=== PATIENT | male | born 1975 | race Caucasian/White ===

== ENCOUNTER 2016-02-19 18:00 | Inpatient (IN) | payer MEDICARE, OTHER ==
[2016-02-19] MEDS ORDERED: SODIUM CHLORIDE 0.9% 1,000 ML IV STA (18:22)
[2016-02-19 19:37] LABS: Anisocytosis Slight; Basophils # (A) 0.1 k/uL (0-0.2); Basophils % (A) 1 %; CH 32.8; CHCM 32.8; Eosinophils # (A) 0.3 k/uL (0-0.7); Eosinophils % (A) 4 %; HCT 25.4 % (39.0-53.0); HDW 2.55; Luc # (Auto) 0.13; Luc % (Auto) 2; Lymphocytes % (A) 12 %; MCH 31.5 pg (25.0-35.0); MCHC 31.4 g/dL (31.0-37.0); Macrocytosis Moderate; Mean Platelet Volume 8.9; Monocytes # (A) 0.4 k/uL (0-1.0); Monocytes % (A) 5 %; Neutrophils # (A) 6.4 k/uL (1.3-7.7); Neutrophils % (A) 77 %; RBC 2.53 m/uL (4.30-5.90); RDW 17.9 % (11.5-15.5); WBC 8.3 k/uL (3.8-10.6); WBC (Perox) 8.58
[2016-02-19 19:49] LABS: MCV 100.5 fL (80.0-100.0)
[2016-02-19 19:50] VITALS: RESP 18
--- NOTE | 2016-02-19 19:50 | XR ---
EXAMINATION TYPE: XR chest 2V DATE OF EXAM: 02/19/2016 7:36 PM COMPARISON: 01/12/2016 HISTORY: Difficulty breathing TECHNIQUE: Frontal and lateral views of the chest are obtained. FINDINGS: Heart is enlarged. There is pulmonary interstitial edema. There are no hilar masses. There is a small left pleural effusion. IMPRESSION: Pulmonary edema consistent with congestive heart failure that is worse than last exam. C ardiomegaly.
[2016-02-19 20:05] LABS: Calcium 8.2 mg/dL (8.4-10.2); Magnesium 2.3 mg/dL (1.6-2.3); Potassium 4.5 mmol/L (3.5-5.1)
--- NOTE | 2016-02-19 20:48 | ED ---
General Adult HPI - General Chief complaint: Shortness of Breath Stated complaint: mony, fluid overload, jaundice Time Seen by Provider: 02/19/16 18:13 Source: patient, RN notes reviewed, old records reviewed Mode of arrival: ambulatory - History of Present Illness Initial comments: Chief complaint history of present illness this is a 32-year-old male who has end-stage renal disease and on hemodialysis. Patient reports he thinks he may have overloaded on fluid this past weekend his next dialysis is tomorrow. Presents short of breath. - Related Data Home Medications Medication Instructions Recorded Confirmed LORazepam [Ativan] 1 mg PO DAILY PRN 06/06/14 01/25/16 Carvedilol [Coreg] 25 mg PO BID 07/10/14 01/25/16 amLODIPine BESYLATE [Amlodipine 10 mg PO DAILY 06/24/15 01/25/16 Besylate] HYDROmorphone [Dilaudid] 2 mg PO DAILY PRN 07/25/15 01/25/16 Cinacalcet HCl [Sensipar] 60 mg PO DAILY 10/31/15 01/25/16 hydrALAZINE HCL [Apresoline] 100 mg PO TID-W/MEALS 11/10/15 01/25/16 Calcium Acetate [Phoslo] 2,001 mg PO TID-W/MEALS 12/11/15 01/25/16 Hydrocodone/Acetaminophen 0.5 tab PO DAILY PRN 12/11/15 01/25/16 [Hydrocodon-Acetaminophn 10-325] Ondansetron Odt [Zofran ODT] 4 mg PO DAILY PRN 12/11/15 01/25/16 cloNIDine HCL [Catapres] 0.2 mg PO TID 12/11/15 01/25/16 Doxycycline Hyclate 100 mg PO DAILY 01/12/16 01/25/16 Famotidine 20 mg PO DAILY 01/12/16 01/25/16 Insulin Glargine [Lantus] 12 unit SQ HS 01/12/16 01/25/16 Folic Acid-Vit B Complex-Vit C 1 cap PO DAILY 01/25/16 01/25/16 [Nephrocaps] Previous Rx's Medication Instructions Recorded Omeprazole [PriLOSEC] 20 mg PO BID #60 01/12/16 Allergies Allergy/AdvReac Type Severity Reaction Status Date / Time codeine Allergy Itching Verified 02/19/16 18:09 metoclopramide HCl AdvReac MUSCLE Verified 02/19/16 18:09 [From Reglan] SPASMS morphine AdvReac INCREASES Verified 02/19/16 18:09 PAIN Review of Systems ROS Statement: Those systems with pertinent positive or pertinent negative responses have been documented in the HPI. Review of systems patient reports he feel short of breath and overloaded. Some difficulty breathing when he tries to breathe. He is on hemodialysis and puts out no urine at all. Denying headache or neurological deficits. No weakness. All systems are reviewed. Past medical problems angina, CHF, CVA, diabetes mellitus, hemodialysis, I disorder, GERD, hypertension, seizure disorder, hypothyroidism, patient's surgeries cholecystectomy, heart catheterization hernia repair bilateral retinal repair. Family history Dr. Stack. ALLERGIES to codeine, metoclopramide and morphine. ROS Other: All systems not noted in ROS Statement are negative. Past Medical History Past Medical History: Chest Pain / Angina, Heart Failure, CVA/TIA, Diabetes Mellitus, Dialysis, Eye Disorder, GERD/Reflux, Hypertension, Renal Disease, Seizure Disorder, Thyroid Disorder Additional Past Medical History / Comment(s): Chronic renal failure stage IV, hemodialysis, past peritoneal dialysis with peritonitis, gastroparesis, cyclic vomiting, chronic abdominal pain, pancreatitis, IDDM type II brittle, heart murmur, heat stroke-no residual, diabetic retinopathy bilaterally, retinal detachment with surgery stated "rt eye vision since is blurry, lt eye better", hypothyroid, hiatal hernia, sinusitis, bronchitis, chronic back pain, anemia, seizure in the past. History of Any Multi-Drug Resistant Organisms: None Reported Past Surgical History: Cholecystectomy, Heart Catheterization, Hernia Repair Additional Past Surgical History / Comment(s): bilateral retinal reattachment sx , hemodialysis catheter in Feb 2013, lt arm fistual, L inguinal hernia, 2009 cardiac cath. Past Anesthesia/Blood Transfusion Reactions: No Reported Reaction Past Psychological History: Anxiety, Depression Additional Psychological History / Comment(s): Pt has his mother living with him. He uses no assistive device. He drives. Smoking Status: Former smoker Past Alcohol Use History: None Reported Additional Past Alcohol Use History / Comment(s): STARTED SMOKING AT AGE 18 SMOKED SOCIALLY AND QUIT 1998 Past Drug Use History: None Reported Additional Drug Use History / Comment(s): PAST medical Marijuana use in high school. - Past Family History Father History Unknown: Yes Mother History Unknown: Yes Family Medical History: COPD Additional Family Medical History / Comment(s): Mother has never smoked. Mother' s brother had diabetes and multiple sclerosis. Brother(s) Family Medical History: Diabetes Mellitus Additional Family Medical History / Comment(s): multiple sclerosis Course Vital Signs 02/19/16 02/19/16 02/19/16 18:05 18:57 19:48 Temperature 98.7 F 98.5 F Pulse Rate 89 80 Respiratory 28 H 22 18 Rate Blood Pressure 205/96 208/100 O2 Sat by Pulse 100 97 Oximetry 02/19/16 20:52 Temperature Pulse Rate 83 Respiratory 18 Rate Blood Pressure 208/101 O2 Sat by Pulse 99 Oximetry Medical Decision Making - Medical Decision Making Medical decision making patient's white count 8.3 hemoglobin 8 hematocrit of 25. Potassium is 4.5 with BUN is 67 creatinine 9.9 with a GFR 6. His BNP is 74 ,500 His chest x-ray was done and reviewed by radiologist his findings are heart is enlarged. There is pulmonary interstitial edema. There are no hilar masses. There is a small left pleural effusion. Impression; pulmonary edema consistent with congestive heart failure that is worse than last exam. Cardiomegaly. As read by Dr. Miles The patient be admitted to the hospitalist. With consultation from professor of early childhood education. The professor of early childhood education will order the dialysis. Admission diagnosis is fluid overload pulmonary congestion - Lab Data Result diagrams: 02/19/16 19:15 02/19/16 19:15 Lab Results 02/19/16 02/19/16 02/19/16 Range/Units 19:15 19:15 19:15 WBC 8.3 (3.8-10.6) k/uL RBC 2.53 L (4.30-5.90) m/uL Hgb 8.0 L (13.0-17.5) gm/dL Hct 25.4 L (39.0-53.0) % MCV 100.5 H D (80.0-100.0) fL MCH 31.5 (25.0-35.0) pg MCHC 31.4 (31.0-37.0) g/dL RDW 17.9 H (11.5-15.5) % Plt Count 145 L (150-450) k/uL Neutrophils % 77 % Lymphocytes % 12 % Monocytes % 5 % Eosinophils % 4 % Basophils % 1 % Neutrophils # 6.4 (1.3-7.7) k/uL Lymphocytes # 1.0 (1.0-4.8) k/uL Monocytes # 0.4 (0-1.0) k/uL Eosinophils # 0.3 (0-0.7) k/uL Basophils # 0.1 (0-0.2) k/uL Anisocytosis Slight Macrocytosis Moderate PT (9.0-12.0) sec INR (<1.1) APTT (22.0-30.0) sec Sodium 143 (137-145) mmol/L Potassium 4.5 (3.5-5.1) mmol/L Chloride 97 L (98-107) mmol/L Carbon Dioxide 26 (22-30) mmol/L Anion Gap 20 mmol/L BUN 67 H (9-20) mg/dL Creatinine 9.90 H* (0.66-1.25) mg/dL Est GFR (MDRD) Af Amer 7 (>60 ml/min/1.73 sqM) Est GFR (MDRD) Non-Af 6 (>60 ml/min/1.73 sqM) Glucose 186 H (74-99) mg/dL Calcium 8.2 L (8.4-10.2) mg/dL Magnesium 2.3 (1.6-2.3) mg/dL Total Bilirubin 1.0 (0.2-1.3) mg/dL AST 53 (17-59) U/L ALT 62 (21-72) U/L Alkaline Phosphatase 247 H (38-126) U/L NT-Pro-B Natriuret Pep 08577 pg/mL Total Protein 7.0 (6.3-8.2) g/dL Albumin 4.1 (3.5-5.0) g/dL 02/19/16 Range/Units 19:15 WBC (3.8-10.6) k/uL RBC (4.30-5.90) m/uL Hgb (13.0-17.5) gm/dL Hct (39.0-53.0) % MCV (80.0-100.0) fL MCH (25.0-35.0) pg MCHC (31.0-37.0) g/dL RDW (11.5-15.5) % Plt Count (150-450) k/uL Neutrophils % % Lymphocytes % % Monocytes % % Eosinophils % % Basophils % % Neutrophils # (1.3-7.7) k/uL Lymphocytes # (1.0-4.8) k/uL Monocytes # (0-1.0) k/uL Eosinophils # (0-0.7) k/uL Basophils # (0-0.2) k/uL Anisocytosis Macrocytosis PT 10.9 (9.0-12.0) sec INR 1.1 (<1.1) APTT 26.0 (22.0-30.0) sec Sodium (137-145) mmol/L Potassium (3.5-5.1) mmol/L Chloride (98-107) mmol/L Carbon Dioxide (22-30) mmol/L Anion Gap mmol/L BUN (9-20) mg/dL Creatinine (0.66-1.25) mg/dL Est GFR (MDRD) Af Amer (>60 ml/min/1.73 sqM) Est GFR (MDRD) Non-Af (>60 ml/min/1.73 sqM) Glucose (74-99) mg/dL Calcium (8.4-10.2) mg/dL Magnesium (1.6-2.3) mg/dL Total Bilirubin (0.2-1.3) mg/dL AST (17-59) U/L ALT (21-72) U/L Alkaline Phosphatase (38-126) U/L NT-Pro-B Natriuret Pep pg/mL Total Protein (6.3-8.2) g/dL Albumin (3.5-5.0) g/dL Disposition Clinical Impression: Fluid overload, Chronic renal failure, stage 5 Disposition: ADMITTED IP TO THIS HOSP Condition: Serious
[2016-02-19 20:51] LABS: INR 1.1 (<1.1); Prothrombin Time 10.9 sec (9.0-12.0)
[2016-02-19] MEDS ORDERED: ONDANSETRON 4 MG/2 ML VIAL IVP STA (21:08)
[2016-02-19] MEDS ORDERED: SODIUM CHLORIDE 0.9% 1,000 ML IV SCH (21:15)
[2016-02-19] MEDS ORDERED: ONDANSETRON 4 MG/2 ML VIAL IVP PRN (21:15)
[2016-02-19] MEDS ORDERED: NALOXONE 0.4 MG/ML 1 ML VIAL IV PRN (21:15)
[2016-02-19] MEDS ORDERED: HYDROmorphone 2 MG TAB PO PRN (22:36)
[2016-02-19] MEDS ORDERED: HYDROcodone/APAP 5-325MG 1 EACH TAB PO PRN (22:36)
[2016-02-19] MEDS ORDERED: INSULIN GLARGINE 100 UNIT/ML 10 ML VIAL SQ SCH (22:45)
[2016-02-19] MEDS ORDERED: GELATIN SPONGE,ABSORB (SMALL) 1 EACH SPONGE ONE (23:00)
[2016-02-19 23:05] VITALS: BMI 22.2
[2016-02-19] MEDS ORDERED: LORazepam 0.5 MG TAB PO PRN (23:12)
[2016-02-19] MEDS: HYDROmorphone 1 MG/ML 1 ML SYRINGE IVP PRN (23:32)
[2016-02-19 23:33] LABS: Glucose,Whole Blood 119 mg/dL (75-99)
[2016-02-20] MEDS ORDERED: LORazepam 1 MG TAB PO PRN (01:15)
[2016-02-20] MEDS: cloNIDine HCL 0.2 MG TAB PO SCH ×3 (01:36→08:00)
[2016-02-20] MEDS: CARVEDILOL 12.5 MG TAB PO SCH ×3 (01:36→08:00)
[2016-02-20] MEDS: hydrALAZINE HCL 50 MG TAB PO SCH ×3 (02:10→12:37)
[2016-02-20 06:08] LABS: Glucose,Whole Blood 77 mg/dL (75-99)
[2016-02-20] MEDS: INSULIN LISPRO (humaLOG) 300 UNIT/3 ML VIAL SQ SCH ×2 (06:30→12:36)
[2016-02-20] MEDS: CALCIUM ACETATE 667 MG CAP PO SCH ×2 (06:36→12:38)
[2016-02-20 06:45] LABS: Anisocytosis Slight; Basophils # (A) 0.1 k/uL (0-0.2); Basophils % (A) 1 %; CH 32.4; CHCM 31.9; Eosinophils # (A) 0.4 k/uL (0-0.7); Eosinophils % (A) 6 %; HCT 25.8 % (39.0-53.0); HDW 2.55; HGB 8.1 gm/dL (13.0-17.5); Hypochromasia Slight; Luc # (Auto) 0.12; Luc % (Auto) 2; Lymphocytes # (A) 1.2 k/uL (1.0-4.8); Lymphocytes % (A) 18 %; MCH 31.9 pg (25.0-35.0); MCHC 31.2 g/dL (31.0-37.0); MCV 102.2 fL (80.0-100.0); Macrocytosis Moderate; Mean Platelet Volume 8.6; Monocytes # (A) 0.4 k/uL (0-1.0); Monocytes % (A) 6 %; Neutrophils # (A) 4.6 k/uL (1.3-7.7); Neutrophils % (A) 68 %; RBC 2.53 m/uL (4.30-5.90); RDW 18.1 % (11.5-15.5); WBC 6.8 k/uL (3.8-10.6); WBC (Perox) 7.59
[2016-02-20 07:38] LABS: Calcium 8.1 mg/dL (8.4-10.2); Potassium 3.7 mmol/L (3.5-5.1)
[2016-02-20] MEDS ORDERED: FOLIC ACID-VIT B COMPLEX-VIT C 1 CAP PO SCH (09:00)
[2016-02-20] MEDS ORDERED: DOXYCYCLINE 50 MG CAP PO SCH (09:00)
[2016-02-20] MEDS ORDERED: amLODIPine 10 MG TAB PO SCH (09:00)
[2016-02-20] MEDS ORDERED: FAMOTIDINE 20 MG TAB PO SCH ×2 (09:00)
[2016-02-20] MEDS ORDERED: CINACALCET 30 MG TAB PO SCH (09:00)
[2016-02-20] MEDS: HYDROmorphone 1 MG/ML 1 ML SYRINGE IVP PRN (09:29)
[2016-02-20] MEDS ORDERED: LORazepam 0.5 MG TAB PO PRN (11:29)
[2016-02-20 11:47] LABS: Glucose,Whole Blood 152 mg/dL (75-99)
[2016-02-20 12:37] LABS: Hemoglobin A1C 7.5 % (4.2-6.1)
[2016-02-20 15:09] VITALS: BP 125/60; PULSE 73; TEMP 97.4
--- NOTE | 2016-02-20 18:37 | HP ---
DATE OF ADMISSION: DATE OF SERVICE: 02/19/2016 CHIEF COMPLAINT: Shortness of breath and abdominal pain, abdominal distention. HISTORY OF PRESENT ILLNESS: This 40-year-old gentleman with a past medical history of multiple medical problems including hypertension, history of CHF, history of chronic hemodialysis, history of chronic pain syndrome, history of noncompliance, history of hypothyroidism, diabetes mellitus, gastroparesis, followed by Dr. Onofre in the outpatient setting, was noted to have shortness of breath and abdominal distention and pain today. The patient apparently was supposed to be hemodialysis tomorrow but the patient apparently was noncompliant with diet or food per staff. There is no history of fever. No history of headache or loss of consciousness. PAST MEDICAL HISTORY: CHF, history of diabetes mellitus type 1, hemodialysis, seizure disorder, hypothyroidism, history of anxiety and depression. The patient had cardiac catheterization. Medications prior to admission include: 1. Hydralazine 100 mg p.o. t.i.d. with meals. 2. Clonidine 0.2 t.i.d. 3. Amlodipine 10 mg daily. 4. Zofran 4 mg daily p.r.n. 5. Prilosec 20 mg a day. 6. Ativan 1 mg daily. 7. Lantus 12 units subcu q.h.s. 8. Hydrocodone daily p.r.n. 9. Dilaudid 2 mg daily p.r.n. 10. Nephrocaps 1 capsule daily. 11. Famotidine 20 mg a day. 12. Doxycycline 100 mg p.o. daily. 13. Sensipar 60 mg p.o. daily. 14. Coreg 25 mg p.o. b.i.d. 15. Phosphorus 2000, 1 mg p.o. t.i.d. with meals. ALLERGIES: CODEINE, REGLAN, MORPHINE. FAMILY HISTORY: History of COPD. SOCIAL HISTORY: Previous history of smoking. REVIEW OF SYSTEMS: ENT: No history of diminished hearing or vision. CARDIOVASCULAR: As mentioned earlier. RESPIRATORY: As mentioned earlier. GASTROINTESTINAL: No nausea, vomiting, or diarrhea. GENITOURINARY: As mentioned earlier. NERVOUS: No numbness or weakness. ALLERGY/IMMUNOLOGY: No asthma or hayfever. HEMATOLOGY/ONCOLOGY: Negative. ENDOCRINE: Negative. SKIN: Negative. CONSTITUTIONAL: No history of fever or weight loss. PHYSICAL EXAMINATION: GENERAL: The patient is alert and oriented times three. VITAL SIGNS: Pulse is 87, blood pressure 213/100, respirations 18, temperature 98.0, pulse ox is 94% on room air. HEENT: Conjunctivae normal. NECK: No jugular venous distention. HEART: S1 and S2, muffled. RESPIRATORY: Breath sounds diminished at the bases. A few scattered rhonchi. No crackles. ABDOMEN: Soft, obese. Mild diffuse tenderness present. Abdominal wall edema is present. EXTREMITIES: Bilateral leg edema. NERVOUS: Diffusely weak. Moves all four extremities. No focal motor deficits.. SKIN: No rash. LABS: WBC 8. Otherwise, sodium 142, potassium 4.4, creatinine is 9.90, alk phos 247. ASSESSMENT: 1. Shortness of breath, CHF acute exacerbation, with acute on chronic diastolic dysfunction, ejection fraction 60 to 65% with a fluid overload. 2. Chronic kidney disease, stage V on hemodialysis. 3. Possible noncompliance. 4. Abdominal pain, possibly acute gastroparesis, acute exacerbation. 5. Accelerated hypertension. 6. History of brittle diabetes mellitus type 1. 7. Chronic pain syndrome. 8. History of noncompliance. 9. Anemia of chronic disease. 10. Cerebrovascular accident, transient ischemic attack. 11. History of gastroesophageal reflux disease. 12. Hypertension. 13. Hypothyroidism. 14. History of gastroparesis. 15. History of cardiac catheterization. 16. History of as mentioned. 17. History of diabetic retinopathy. 18. History of pancreatitis. 19. History of anxiety and depression, not otherwise specified. 20. History of nicotine dependence. 21. History of THC. 22. History of hypothyroidism. 23. FULL CODE. RECOMMENDATIONS AND DISC USSION: In this 40-year-old gentleman with multiple complex medical issues, we will monitor the patient closely, continue the current medications, continue symptomatic treatment. I would also recommend nephrology consultation and urgent hemodialysis in view of the features of CHF, which chest x-ray which was reviewed personally by me. The patient also has accelerated hypertension and dialysis will be an excellent way to control the blood pressure. Otherwise, I would recommend resuming the home medications, p.r.n. medications. See orders for details. Prognosis extremely guarded because of multiple complex medical issues,. Further recommendation to follow. Discussed with the staff. VANDANA
[2016-02-20] MEDS ORDERED: NON-FORMULARY DRUG (Hydralazine Hcl [Apresoline] 100 MG) PO SCH (22:47)
--- NOTE | 2016-02-21 09:53 | CONS ---
DATE OF CONSULTATION: REASON FOR CONSULTATION: End-stage renal disease. HISTORY OF PRESENT ILLNESS: Patient is a 40-year-old white male who came in again with significant shortness of breath and fluid overload. He came in last night complaining of severe difficulty in breathing. He also stated that he had been drinking a lot of fluids. Patient was dialyzed last night and was dialyzed again today. He had about 7 liters of fluid removed between last night and this morning. No fever, chills, no significant nausea and vomiting. PAST MEDICAL HISTORY: Rest of the history as per recent consultation on 01/12/[address] Allred. On examination, the patient is comfortable. Blood pressure is 120/60, heart rate 71 per minute. He is afebrile. Examination of the heart S1 and S2. Examination of the lungs: Bilateral breath sounds are heard. ABDOMEN: Soft, nontender. Examination of lower extremities shows no edema. NEEDLE LEADER exam is grossly intact. Potassium is 3.7. Hemoglobin at 8.1 g/dL. ASSESSMENT: 1. End-stage renal disease on hemodialysis on a Saturday, Saturday, Saturday schedule. 2. Fluid overload with history of fluid abuse, currently improved, status post 7 liters ultrafiltration on hemodialysis last night and this morning. 3. History of diabetic gastroparesis with a prior history of significant nausea and vomiting which was fortunately not present on this admission. 4. Anemia of chronic disease. Will continue with ( ) as outpatient. PLAN: The patient is stable for discharge from nephrology standpoint and follow up as outpatient on dialysis. Will continue with fluid restrictions.
--- NOTE | 2016-02-21 20:13 | DS ---
DATE OF ADMISSION: 02/19/2016 DATE OF DISCHARGE: 02/20/2016 FINAL DIAGNOSES: 1. Shortness of breath; congestive heart failure, acute exacerbation; acute on chronic diastolic dysfunction; ejection fraction 60% to 65%, with fluid overload, status post hemodialysis x2; improved. 2. Chronic kidney disease, stage V, on hemodialysis. 3. Possible noncompliance. 4. Abdominal pain with possible acute gastroparesis, acute exacerbation. 5. Accelerated hypertension. 6. History of brittle diabetes mellitus, type 1. 7. Chronic pain syndrome. 8. History of noncompliance. 9. Anemia of chronic disease. 10. Cerebrovascular accident, transient ischemic attack. 11. History of gastroesophageal reflux disease. 12. Hypertension. 13. Hypothyroidism. 14. History of gastroparesis. 15. History of cardiac catheterization. 16. History of diabetic retinopathy. 17. History of pancreatitis. 18. History of anxiety, depression not otherwise specified. 19. History of nicotine dependence. 20. History of tetrahydrocannabinol. 21. History of hypothyroidism. 22. FULL CODE. DISCHARGE DISPOSITION: The patient will be discharged in stable condition with guarded prognosis. HISTORY OF PRESENT ILLNESS: This 40-year-old gentleman with a past medical history of multiple medical problems, being followed by Dr. Onofre in the outpatient setting, was admitted with shortness of breath and CHF, acute exacerbation. Hemodialysis twice within a span of 24 hours. Patient improved significantly. Noncompliance was suspected. Patient improved significantly. On exam, vitals are stable. CARDIOVASCULAR SYSTEM: S1, S2 muffled. RESPIRATORY SYSTEM: Breath sounds diminished at the bases. A few scattered rhonchi. ABDOMEN: Soft. NERVOUS SYSTEM: No focal deficit. DISCHARGE ADVICE AND MEDICATIONS: 1. Diet is cardiac. Fluid restriction. No added salt. 2. Follow up with Dr. Onofre in 2 to 3 days for CBC, BMP. 3. Follow up with Dr. Rush as advised. 4. Continue the hemodialysis. 5. Vitamin B complex one p.o. daily. 6. Coreg 25 mg b.i.d. 7. Sensipar 60 mg daily. 8. Flexeril 10 mg t.i.d. p.r.n. 9. Folbic 1 p.o. daily. 10. Hydrocodone 0.5 mg daily. 11. Humalog scale as before. 12. Lantus 12 units subcutaneously at bedtime. 13. Ativan 1 mg daily. 14. Prilosec 20 mg daily. 15. Zofran 4 mg p.o. daily. 16. Amlodipine 10 mg p.o. daily. 17. Catapres 0.2 t.i.d. 18. Apresoline 100 mg p.o. t.i.d. Once again, the patient will be discharged in stable condition with guarded prognosis.
== END 2016-02-20 16:26 | disposition home or self-care (01) | DRG 291 ==
LOC: EC 18:00 → 6SEL 21:15
PROVIDERS: ADMIT Internal Medicine; ATTEND Internal Medicine
PROC: 5A1D60Z (ICD-10-PCS; principal; 2016-02-20)
DX: I13.2 Hypertensive heart and chronic kidney disease with heart failure and with stage 5 chronic kidney disease, or end stage renal disease (principal); N18.6 End stage renal disease; I50.33 Acute on chronic diastolic (congestive) heart failure; E10.22 Type 1 diabetes mellitus with diabetic chronic kidney disease; D63.8 Anemia in other chronic diseases classified elsewhere; E03.9 Hypothyroidism, unspecified; E10.319 Type 1 diabetes mellitus with unspecified diabetic retinopathy without macular edema; E10.43 Type 1 diabetes mellitus with diabetic autonomic (poly)neuropathy; G40.909 Epilepsy, unspecified, not intractable, without status epilepticus; G89.4 Chronic pain syndrome; K21.9 Gastro-esophageal reflux disease without esophagitis; K31.84 Gastroparesis; F32.9 Major depressive disorder, single episode, unspecified; F41.9 Anxiety disorder, unspecified; R01.1 Cardiac murmur, unspecified; K44.9 Diaphragmatic hernia without obstruction or gangrene; H53.8 Other visual disturbances; M54.9 Dorsalgia, unspecified; Z99.2 Dependence on renal dialysis; Z91.19 Patient's noncompliance with other medical treatment and regimen; Z91.11 Patient's noncompliance with dietary regimen; Z87.891 Personal history of nicotine dependence; Z79.4 Long term (current) use of insulin; Z79.899 Other long term (current) drug therapy; Z88.5 Allergy status to narcotic agent; Z88.8 Allergy status to other drugs, medicaments and biological substances
CPT/HCPCS: 36415; 71020; 80048; 80053; 83036; 83735; 83880; 85025; 85610; 85730; 90935; 94760; 96374; 99285

== ENCOUNTER 2016-03-28 19:43 | Emergency (ER) | payer MEDICARE, OTHER ==
[2016-03-28 19:50] VITALS: TEMP 97.8
[2016-03-28] MEDS ORDERED: SODIUM CHLORIDE 0.9% 500 ML IV ONE (19:56)
[2016-03-28] MEDS ORDERED: HYDROmorphone 1 MG/ML 1 ML SYRINGE IVP STA (19:56)
[2016-03-28] MEDS ORDERED: ONDANSETRON 4 MG/2 ML VIAL IVP STA (19:56)
[2016-03-28 20:42] LABS: Anisocytosis Slight; Basophils # (A) 0.1 k/uL (0-0.2); Basophils % (A) 1 %; CH 31.2; CHCM 31.4; Eosinophils # (A) 0.1 k/uL (0-0.7); Eosinophils % (A) 1 %; HCT 45.5 % (39.0-53.0); Hypochromasia Slight; Luc # (Auto) 0.12; Luc % (Auto) 2; Lymphocytes # (A) 0.4 k/uL (1.0-4.8); Lymphocytes % (A) 5 %; MCH 31.2 pg (25.0-35.0); MCHC 31.2 g/dL (31.0-37.0); MCV 100.1 fL (80.0-100.0); Macrocytosis Moderate; Mean Platelet Volume 8.6; Monocytes # (A) 0.3 k/uL (0-1.0); Monocytes % (A) 4 %; Neutrophils # (A) 6.5 k/uL (1.3-7.7); Neutrophils % (A) 87 %; RBC 4.54 m/uL (4.30-5.90); RDW 18.3 % (11.5-15.5); WBC 7.6 k/uL (3.8-10.6); WBC (Perox) 7.53
[2016-03-28 20:45] LABS: HGB 14.2 gm/dL (13.0-17.5)
[2016-03-28 20:48] LABS: Total Bilirubin 1.5 mg/dL (0.2-1.3); Total Protein 9.4 g/dL (6.3-8.2)
--- NOTE | 2016-03-28 21:03 | ED ---
Abdominal Pain HPI - General Chief Complaint: Abdominal Pain Stated Complaint: Abdomnial Pain Time Seen by Provider: 03/28/16 19:47 Source: patient Mode of arrival: EMS Limitations: physical limitation - History of Present Illness Initial Comments: Is a 32-year-old male with a history of end-stage renal disease, diabetes, gastroparesis presents emergency room for epigastric abdominal pain, nausea, and vomiting. He states that it's severe and was sudden onset after getting dialysis today. He states that it's the same as his normal gastroparesis pain. He denies any blood in his vomit. No diarrhea or bloody stools. No fevers or chills. No cough or shortness of breath. Patient has had multiple ED visits for this and states that the only thing that works for him is Dilaudid and Zofran. - Related Data Home Medications Medication Instructions Recorded Confirmed LORazepam [Ativan] 1 mg PO DAILY PRN 06/06/14 03/28/16 Carvedilol [Coreg] 25 mg PO BID 07/10/14 03/28/16 amLODIPine BESYLATE [Amlodipine 10 mg PO DAILY 06/24/15 03/28/16 Besylate] Cinacalcet HCl [Sensipar] 60 mg PO DAILY 10/31/15 03/28/16 Hydrocodone/Acetaminophen 0.5 tab PO DAILY PRN 12/11/15 03/28/16 [Hydrocodon-Acetaminophn 10-325] Ondansetron Odt [Zofran ODT] 4 mg PO BID PRN 12/11/15 03/28/16 Insulin Glargine [Lantus] 12 unit SQ HS 01/12/16 03/28/16 Folic Acid-Vit B Complex-Vit C 1 cap PO DAILY 01/25/16 03/28/16 [Nephrocaps] B Complex & C No.20/Folic Acid 1 mg PO DAILY 02/20/16 03/28/16 [Triphrocaps Softgel] Cyclobenzaprine [Flexeril] 10 mg PO TID PRN 02/20/16 03/28/16 INSULIN LISPRO (humaLOG) [humaLOG See Protocol SQ AC-TID 02/20/16 03/28/16 (formulary)] Omeprazole [PriLOSEC] 20 mg PO DAILY 02/20/16 03/28/16 HYDROmorphone [Dilaudid] 2 mg PO DAILY PRN 03/28/16 03/28/16 hydrALAZINE HCL [Apresoline] 100 mg PO QID 03/28/16 03/28/16 Previous Rx's Medication Instructions Recorded cloNIDine HCL [Catapres] 0.2 mg PO TID tab 02/20/16 Allergies Allergy/AdvReac Type Severity Reaction Status Date / Time codeine Allergy Itching Verified 03/28/16 20:15 metoclopramide HCl AdvReac MUSCLE Verified 03/28/16 20:15 [From Reglan] SPASMS morphine AdvReac INCREASES Verified 03/28/16 20:15 PAIN Review of Systems ROS Statement: Those systems with pertinent positive or pertinent negative responses have been documented in the HPI. ROS Other: All systems not noted in ROS Statement are negative. Past Medical History Past Medical History: Chest Pain / Angina, Heart Failure, Diabetes Mellitus, Dialysis, Eye Disorder, GERD/Reflux, Hypertension, Renal Disease, Seizure Disorder, Thyroid Disorder Additional Past Medical History / Comment(s): Chronic renal failure stage IV, hemodialysis, past peritoneal dialysis with peritonitis, gastroparesis, cyclic vomiting, chronic abdominal pain, pancreatitis, IDDM type II brittle, heart murmur, heat stroke-no residual, diabetic retinopathy bilaterally, retinal detachment with surgery stated "rt eye vision since is blurry, lt eye better", hypothyroid, hiatal hernia, sinusitis, bronchitis, chronic back pain, anemia, seizure in the past. History of Any Multi-Drug Resistant Organisms: None Reported Past Surgical History: Cholecystectomy, Heart Catheterization, Hernia Repair Additional Past Surgical History / Comment(s): bilateral retinal reattachment sx , hemodialysis catheter in Feb 2013, lt arm fistual, L inguinal hernia, 2009 cardiac cath. Past Anesthesia/Blood Transfusion Reactions: No Reported Reaction Past Psychological History: Anxiety, Depression Additional Psychological History / Comment(s): Pt has his mother living with him. He uses no assistive device. He drives. Smoking Status: Former smoker Past Alcohol Use History: None Reported Additional Past Alcohol Use History / Comment(s): STARTED SMOKING AT AGE 18 SMOKED SOCIALLY AND QUIT 1998 Past Drug Use History: None Reported Additional Drug Use History / Comment(s): PAST medical Marijuana use in high school. - Past Family History Father History Unknown: Yes Mother History Unknown: Yes Family Medical History: COPD Additional Family Medical History / Comment(s): Mother has never smoked. Mother' s brother had diabetes and multiple sclerosis. Brother(s) Family Medical History: Diabetes Mellitus Additional Family Medical History / Comment(s): multiple sclerosis General Exam - General Exam Comments Initial Comments: Constitutional: Awake alert patient is writhing around and moaning in pain Head: Normocephalic atraumatic Eyes: no conjunctival injection No scleral icterus EOMI Neck: No JVD Supple Heart: Tachycardia normal S1-S2 no murmurs Lungs: Clear to auscultation bilaterally No wheezing No rales Abdomen: Soft nondistended gastric tenderness with voluntary guarding Extremities: Non edematous DP pulses intact Radial pulses intact Neuro: A&Ox3 No focal neurologic deficits Psych: Appropriate mood and affect Limitations: physical limitation Course Vital Signs 03/28/16 03/28/16 03/28/16 19:45 20:21 20:50 Temperature 97.8 F Pulse Rate 92 Respiratory 24 Rate Blood Pressure 202/126 201/109 192/92 O2 Sat by Pulse 93 L Oximetry Medical Decision Making - Medical Decision Making Is a 40-year-old male with history of gastroparesis and abdominal pain who presents emergency department for chronic gastroparesis pain. He is given a dose of Dilaudid and Zofran and complete resolution of his symptoms. He is now resting peacefully in the room without any more complaints. I reviewed his labwork is unchanged from previous. Creatinine is chronically elevated. No leukocytosis. At this time I feel the patient can go home and follow-up with his regular doctor. He can return if he has worsening or changing symptoms. All questions were answered. - Lab Data Result diagrams: 03/28/16 20:13 03/28/16 20:13 Lab Results 03/28/16 03/28/16 Range/Units 20:13 20:13 WBC 7.6 (3.8-10.6) k/uL RBC 4.54 (4.30-5.90) m/uL Hgb 14.2 D (13.0-17.5) gm/dL Hct 45.5 (39.0-53.0) % MCV 100.1 H (80.0-100.0) fL MCH 31.2 (25.0-35.0) pg MCHC 31.2 (31.0-37.0) g/dL RDW 18.3 H (11.5-15.5) % Plt Count 197 (150-450) k/uL Neutrophils % 87 % Lymphocytes % 5 % Monocytes % 4 % Eosinophils % 1 % Basophils % 1 % Neutrophils # 6.5 (1.3-7.7) k/uL Lymphocytes # 0.4 L (1.0-4.8) k/uL Monocytes # 0.3 (0-1.0) k/uL Eosinophils # 0.1 (0-0.7) k/uL Basophils # 0.1 (0-0.2) k/uL Hypochromasia Slight Anisocytosis Slight Macrocytosis Moderate Sodium 140 (137-145) mmol/L Potassium 5.0 (3.5-5.1) mmol/L Chloride 93 L (98-107) mmol/L Carbon Dioxide 28 (22-30) mmol/L Anion Gap 19 mmol/L BUN 23 H (9-20) mg/dL Creatinine 5.51 H* (0.66-1.25) mg/dL Est GFR (MDRD) Af Amer 14 (>60 ml/min/1.73 sqM) Est GFR (MDRD) Non-Af 12 (>60 ml/min/1.73 sqM) Glucose 324 H (74-99) mg/dL Calcium 9.0 (8.4-10.2) mg/dL Magnesium 2.0 (1.6-2.3) mg/dL Total Bilirubin 1.5 H (0.2-1.3) mg/dL AST 44 (17-59) U/L ALT 50 (21-72) U/L Alkaline Phosphatase 329 H (38-126) U/L Total Protein 9.4 H (6.3-8.2) g/dL Albumin 5.1 H (3.5-5.0) g/dL Amylase 141 H (30-110) U/L Lipase 100 (23-300) U/L Disposition Clinical Impression: Chronic abdominal pain, Gastroparesis Disposition: HOME SELF-CARE Condition: Stable Instructions: Abdominal Pain (ED) Additional Instructions: Please follow-up with your primary doctor for further evaluation. Take your medications that you have at home for this as needed. Return to the emergency Department if you feel like you're getting worse. Referrals: Kala Onofre MD [Primary Care Provider] - 1-2 days
[2016-03-28 21:48] VITALS: BP 190/92; PULSE 86; RESP 18
== END 2016-03-28 21:47 | disposition home or self-care (01) ==
LOC: EC 19:43
DX: R10.13 Epigastric pain (principal); G89.29 Other chronic pain; K31.84 Gastroparesis; E11.22 Type 2 diabetes mellitus with diabetic chronic kidney disease; I12.9 Hypertensive chronic kidney disease with stage 1 through stage 4 chronic kidney disease, or unspecified chronic kidney disease; I13.0 Hypertensive heart and chronic kidney disease with heart failure and stage 1 through stage 4 chronic kidney disease, or unspecified chronic kidney disease; I50.9 Heart failure, unspecified; N18.4 Chronic kidney disease, stage 4 (severe); Z99.2 Dependence on renal dialysis; E11.319 Type 2 diabetes mellitus with unspecified diabetic retinopathy without macular edema; F41.9 Anxiety disorder, unspecified; F32.9 Major depressive disorder, single episode, unspecified; G40.909 Epilepsy, unspecified, not intractable, without status epilepticus; Z87.891 Personal history of nicotine dependence; Z79.4 Long term (current) use of insulin; Z79.899 Other long term (current) drug therapy; Z88.5 Allergy status to narcotic agent; Z88.8 Allergy status to other drugs, medicaments and biological substances; Z90.49 Acquired absence of other specified parts of digestive tract
CPT/HCPCS: 99284 ×2; 96374 ×2; 96375 ×2; 96361 ×2; 96372; 99283; 36415; 80053; 82150; 83690; 83735; 85025; J2060; J2550; J2405; J1170

== ENCOUNTER 2016-03-28 22:16 | Emergency (ER) | payer MEDICARE, OTHER ==
[2016-03-28 22:32] VITALS: BP 233/107; PULSE 103; RESP 20; TEMP 98.1
[2016-03-28] MEDS ORDERED: HYDROmorphone 1 MG/ML 1 ML SYRINGE IM STA (23:18)
[2016-03-28] MEDS ORDERED: PROMETHAZINE INJ 25 MG/ML 1 ML VIAL IM STA (23:18)
[2016-03-28] MEDS ORDERED: LORazepam 2 MG/ML SYRINGE IM STA (23:18)
--- NOTE | 2016-03-28 23:41 | ED ---
General Adult HPI - General Chief complaint: Abdominal Pain Stated complaint: nausea/pain Time Seen by Provider: 03/28/16 22:57 Source: patient, RN notes reviewed Mode of arrival: ambulatory Limitations: no limitations - History of Present Illness Initial comments: Patient is a 40-year-old male who presents emergency room today with chief complaint of increased nausea vomiting. Patient was seen here in emergency room proximal lesion 2 hours prior to this arrival. He was discharged home waiting for his ride in the waiting room when pain and nausea vomiting symptoms returned and he checked back in to be re-seen. He does mitts that he's had these symptoms several times in the past. Patient has multiple ER visits for the same. Blood work was reviewed. Does show elevated kidney function but patient is on dialysis. Patient admits to pain locally to the epigastric area with increased nausea. Does admit to some dry heaving currently. He denies any other complaints at this time. Patient denies any recent fever, chills, shortness of breath, chest pain, back pain, numbness or tingling, dysuria or hematuria, constipation or diarrhea, headaches or visual changes, or any other complaints. - Related Data Home Medications Medication Instructions Recorded Confirmed LORazepam [Ativan] 1 mg PO DAILY PRN 06/06/14 03/28/16 Carvedilol [Coreg] 25 mg PO BID 07/10/14 03/28/16 amLODIPine BESYLATE [Amlodipine 10 mg PO DAILY 06/24/15 03/28/16 Besylate] Cinacalcet HCl [Sensipar] 60 mg PO DAILY 10/31/15 03/28/16 Hydrocodone/Acetaminophen 0.5 tab PO DAILY PRN 12/11/15 03/28/16 [Hydrocodon-Acetaminophn 10-325] Ondansetron Odt [Zofran ODT] 4 mg PO BID PRN 12/11/15 03/28/16 Insulin Glargine [Lantus] 12 unit SQ HS 01/12/16 03/28/16 Folic Acid-Vit B Complex-Vit C 1 cap PO DAILY 01/25/16 03/28/16 [Nephrocaps] B Complex & C No.20/Folic Acid 1 mg PO DAILY 02/20/16 03/28/16 [Triphrocaps Softgel] Cyclobenzaprine [Flexeril] 10 mg PO TID PRN 02/20/16 03/28/16 INSULIN LISPRO (humaLOG) [humaLOG See Protocol SQ AC-TID 02/20/16 03/28/16 (formulary)] Omeprazole [PriLOSEC] 20 mg PO DAILY 02/20/16 03/28/16 HYDROmorphone [Dilaudid] 2 mg PO DAILY PRN 03/28/16 03/28/16 hydrALAZINE HCL [Apresoline] 100 mg PO QID 03/28/16 03/28/16 Previous Rx's Medication Instructions Recorded cloNIDine HCL [Catapres] 0.2 mg PO TID tab 02/20/16 Allergies Allergy/AdvReac Type Severity Reaction Status Date / Time codeine Allergy Itching Verified 03/28/16 22:32 metoclopramide HCl AdvReac MUSCLE Verified 03/28/16 22:32 [From Reglan] SPASMS morphine AdvReac INCREASES Verified 03/28/16 22:32 PAIN Review of Systems ROS Statement: Those systems with pertinent positive or pertinent negative responses have been documented in the HPI. ROS Other: All systems not noted in ROS Statement are negative. Past Medical History Past Medical History: Chest Pain / Angina, Heart Failure, Diabetes Mellitus, Dialysis, Eye Disorder, GERD/Reflux, Hypertension, Renal Disease, Seizure Disorder, Thyroid Disorder Additional Past Medical History / Comment(s): Chronic renal failure stage IV, hemodialysis, past peritoneal dialysis with peritonitis, gastroparesis, cyclic vomiting, chronic abdominal pain, pancreatitis, IDDM type II brittle, heart murmur, heat stroke-no residual, diabetic retinopathy bilaterally, retinal detachment with surgery stated "rt eye vision since is blurry, lt eye better", hypothyroid, hiatal hernia, sinusitis, bronchitis, chronic back pain, anemia, seizure in the past. History of Any Multi-Drug Resistant Organisms: None Reported Past Surgical History: Cholecystectomy, Heart Catheterization, Hernia Repair Additional Past Surgical History / Comment(s): bilateral retinal reattachment sx , hemodialysis catheter in Feb 2013, lt arm fistual, L inguinal hernia, 2009 cardiac cath. Past Anesthesia/Blood Transfusion Reactions: No Reported Reaction Past Psychological History: Anxiety, Depression Additional Psychological History / Comment(s): Pt has his mother living with him. He uses no assistive device. He drives. Smoking Status: Former smoker Past Alcohol Use History: None Reported Additional Past Alcohol Use History / Comment(s): STARTED SMOKING AT AGE 18 SMOKED SOCIALLY AND QUIT 1998 Past Drug Use History: None Reported Additional Drug Use History / Comment(s): PAST medical Marijuana use in high school. - Past Family History Father History Unknown: Yes Mother History Unknown: Yes Family Medical History: COPD Additional Family Medical History / Comment(s): Mother has never smoked. Mother' s brother had diabetes and multiple sclerosis. Brother(s) Family Medical History: Diabetes Mellitus Additional Family Medical History / Comment(s): multiple sclerosis General Exam - General Exam Comments Initial Comments: General: The patient is awake and alert, in no distress, and does not appear acutely ill. Eye: Pupils are equal, round and reactive to light, extra-ocular movements are intact. No nystagmus. There is normal conjunctiva bilaterally. No signs of icterus. Ears, nose, mouth and throat: There are moist mucous membranes and no oral lesions. Neck: The neck is supple, there is no tenderness or JVD. Cardiovascular: There is a regular rate and rhythm. No murmur, rub or gallop is appreciated. Respiratory: Lungs are clear to auscultation, respirations are non-labored, breath sounds are equal. No wheezes, stridor, rales, or rhonchi. Gastrointestinal: Normal appearance and. Normal bowel sounds. Abdomen soft on palpation. Patient does have tenderness epigastric. No rebound tenderness. No guarding. Musculoskeletal: Normal ROM, no tenderness. Strength 5/5. Sensation intact. Pulses equal bilaterally 2+. Neurological: A&O x 3. CN II-XII intact, There are no obvious motor or sensory deficits. Coordination appears grossly intact. Speech is normal. Skin: Skin is warm and dry and no rashes or lesions are noted. Psychiatric: Cooperative, appropriate mood & affect, normal judgment. Limitations: no limitations Course Vital Signs 03/28/16 22:30 Temperature 98.1 F Pulse Rate 103 H Respiratory 20 Rate Blood Pressure 233/107 O2 Sat by Pulse 95 Oximetry Medical Decision Making - Medical Decision Making Patient reexamined at this time shows no signs of distress. Feels comfortable being discharged home and be discharged home advised follow-up his family doctor tomorrow. Disposition Clinical Impression: Nausea & vomiting Disposition: HOME SELF-CARE Condition: Good Instructions: Acute Nausea and Vomiting (ED) Additional Instructions: Please use medication as discussed. Please follow-up with family doctor in the next 2 days of symptoms have not improved. Please return to emergency room if the symptoms increase or worsen or for any other concerns. Time of Disposition: 23:54
== END 2016-03-29 | disposition home or self-care (01) ==
LOC: EC 22:16
DX: R11.2 Nausea with vomiting, unspecified (principal); I12.9 Hypertensive chronic kidney disease with stage 1 through stage 4 chronic kidney disease, or unspecified chronic kidney disease; R94.4 Abnormal results of kidney function studies; K21.9 Gastro-esophageal reflux disease without esophagitis; G40.909 Epilepsy, unspecified, not intractable, without status epilepticus; E11.319 Type 2 diabetes mellitus with unspecified diabetic retinopathy without macular edema; E11.29 Type 2 diabetes mellitus with other diabetic kidney complication; N28.9 Disorder of kidney and ureter, unspecified; Z98.61 Coronary angioplasty status; Z99.2 Dependence on renal dialysis; Z79.4 Long term (current) use of insulin; Z79.899 Other long term (current) drug therapy; Z88.8 Allergy status to other drugs, medicaments and biological substances; Z88.5 Allergy status to narcotic agent
CPT/HCPCS: 99283; 96372; J2060; J2550; J1170

== ENCOUNTER 2016-03-29 13:37 | Emergency (ER) | payer MEDICARE, OTHER ==
[2016-03-29] MEDS ORDERED: DICYCLOMINE 10 MG/ML 2 ML AMP IM STA (16:16)
[2016-03-29] MEDS ORDERED: PANTOPRAZOLE 40 MG/10 ML VIAL IVP STA (16:16)
[2016-03-29] MEDS ORDERED: SODIUM CHLORIDE 0.9% 500 ML IV STA (16:16)
[2016-03-29] MEDS ORDERED: ONDANSETRON 4 MG/2 ML VIAL IVP STA (16:16)
[2016-03-29] MEDS ORDERED: diphenhydrAMINE 50 MG/ML 1 ML VIAL IVP STA (16:16)
--- NOTE | 2016-03-29 16:21 | ED ---
General Adult HPI - General Chief complaint: Abdominal Pain Stated complaint: NVD, Abd Pain Time Seen by Provider: 03/29/16 16:06 Source: patient, RN notes reviewed Mode of arrival: wheelchair Limitations: no limitations - History of Present Illness Initial comments: Patient is a pleasant 40-year-old male presenting to the emergency Department with complaints of nausea and vomiting and abdominal discomfort. Patient admits this is a chronic problem. Patient was in the emergency department yesterday and states he was doing fine. Patient got home and took his last Dilaudid and states his pain has started to increase since that time. Patient has epigastric discomfort and nausea and vomiting. - Related Data Home Medications Medication Instructions Recorded Confirmed LORazepam [Ativan] 1 mg PO DAILY PRN 06/06/14 03/29/16 Carvedilol [Coreg] 25 mg PO BID 07/10/14 03/29/16 amLODIPine BESYLATE [Amlodipine 10 mg PO DAILY 06/24/15 03/29/16 Besylate] Cinacalcet HCl [Sensipar] 60 mg PO DAILY 10/31/15 03/29/16 Hydrocodone/Acetaminophen 0.5 tab PO DAILY PRN 12/11/15 03/29/16 [Hydrocodon-Acetaminophn 10-325] Ondansetron Odt [Zofran ODT] 4 mg PO BID PRN 12/11/15 03/29/16 Insulin Glargine [Lantus] 12 unit SQ HS 01/12/16 03/29/16 Folic Acid-Vit B Complex-Vit C 1 cap PO DAILY 01/25/16 03/29/16 [Nephrocaps] B Complex & C No.20/Folic Acid 1 mg PO DAILY 02/20/16 03/29/16 [Triphrocaps Softgel] Cyclobenzaprine [Flexeril] 10 mg PO TID PRN 02/20/16 03/29/16 INSULIN LISPRO (humaLOG) [humaLOG See Protocol SQ AC-TID 02/20/16 03/29/16 (formulary)] Omeprazole [PriLOSEC] 20 mg PO DAILY 02/20/16 03/29/16 HYDROmorphone [Dilaudid] 2 mg PO DAILY PRN 03/28/16 03/29/16 hydrALAZINE HCL [Apresoline] 100 mg PO QID 03/28/16 03/29/16 Previous Rx's Medication Instructions Recorded cloNIDine HCL [Catapres] 0.2 mg PO TID tab 02/20/16 Allergies Allergy/AdvReac Type Severity Reaction Status Date / Time codeine Allergy Itching Verified 03/29/16 16:08 metoclopramide HCl AdvReac MUSCLE Verified 03/29/16 16:08 [From Reglan] SPASMS morphine AdvReac INCREASES Verified 03/29/16 16:08 PAIN Review of Systems ROS Statement: Those systems with pertinent positive or pertinent negative responses have been documented in the HPI. ROS Other: All systems not noted in ROS Statement are negative. Constitutional: Denies: fever Eyes: Denies: eye pain ENT: Denies: ear pain Respiratory: Denies: cough Cardiovascular: Denies: chest pain Endocrine: Denies: as per HPI Gastrointestinal: Reports: abdominal pain, nausea, vomiting Genitourinary: Denies: dysuria Musculoskeletal: Denies: back pain Skin: Denies: rash Neurological: Denies: weakness Past Medical History Past Medical History: Chest Pain / Angina, Heart Failure, Diabetes Mellitus, Dialysis, Eye Disorder, GERD/Reflux, Hypertension, Renal Disease, Seizure Disorder, Thyroid Disorder Additional Past Medical History / Comment(s): Chronic renal failure stage IV, hemodialysis, past peritoneal dialysis with peritonitis, gastroparesis, cyclic vomiting, chronic abdominal pain, pancreatitis, IDDM type II brittle, heart murmur, heat stroke-no residual, diabetic retinopathy bilaterally, retinal detachment with surgery stated "rt eye vision since is blurry, lt eye better", hypothyroid, hiatal hernia, sinusitis, bronchitis, chronic back pain, anemia, seizure in the past. History of Any Multi-Drug Resistant Organisms: None Reported Past Surgical History: Cholecystectomy, Heart Catheterization, Hernia Repair Additional Past Surgical History / Comment(s): bilateral retinal reattachment sx , hemodialysis catheter in Feb 2013, lt arm fistual, L inguinal hernia, 2009 cardiac cath. Past Anesthesia/Blood Transfusion Reactions: No Reported Reaction Past Psychological History: Anxiety, Depression Additional Psychological History / Comment(s): Pt has his mother living with him. He uses no assistive device. He drives. Smoking Status: Former smoker Past Alcohol Use History: None Reported Additional Past Alcohol Use History / Comment(s): STARTED SMOKING AT AGE 18 SMOKED SOCIALLY AND QUIT 1998 Past Drug Use History: None Reported Additional Drug Use History / Comment(s): PAST medical Marijuana use in high school. - Past Family History Father History Unknown: Yes Mother History Unknown: Yes Family Medical History: COPD Additional Family Medical History / Comment(s): Mother has never smoked. Mother' s brother had diabetes and multiple sclerosis. Brother(s) Family Medical History: Diabetes Mellitus Additional Family Medical History / Comment(s): multiple sclerosis General Exam Limitations: no limitations General appearance: alert, in no apparent distress Head exam: Present: atraumatic Eye exam: Present: normal appearance, PERRL ENT exam: Present: normal oropharynx Neck exam: Present: normal inspection Respiratory exam: Present: normal lung sounds bilaterally Cardiovascular Exam: Present: regular rate, normal rhythm Expanded Peripheral pulses: 2+: Dorsalis Pedis (R), Dorsalis Pedis (L) GI/Abdominal exam: Present: soft, tenderness (Mild to moderate epigastric tenderness), normal bowel sounds. Absent: distended, guarding, rebound, rigid, pulsatile mass Extremities exam: Present: normal inspection. Absent: pedal edema, calf tenderness Neurological exam: Present: alert Psychiatric exam: Present: normal affect, normal mood Skin exam: Absent: rash Course Vital Signs 03/29/16 03/29/16 03/29/16 13:46 18:07 19:02 Temperature 98.3 F Pulse Rate 88 89 91 Respiratory 20 20 18 Rate Blood Pressure 200/98 242/123 210/99 O2 Sat by Pulse 98 97 95 Oximetry 03/29/16 19:13 Temperature Pulse Rate 91 Respiratory 20 Rate Blood Pressure 198/102 O2 Sat by Pulse 95 Oximetry Medical Decision Making - Medical Decision Making Patient reevaluated and updated. Case discussed in detail with practitioner [facility], who will admit for Dr. Santamaria, covering for Dr. Quick. Patient is acetone positive and will be admitted for insulin and IV fluids. - Lab Data Result diagrams: 03/29/16 17:34 03/29/16 17:34 Lab Results 03/29/16 03/29/16 03/29/16 Range/Units 17:34 17:34 17:34 WBC 7.7 (3.8-10.6) k/uL RBC 4.50 (4.30-5.90) m/uL Hgb 14.0 (13.0-17.5) gm/dL Hct 45.8 (39.0-53.0) % MCV 101.7 H (80.0-100.0) fL MCH 31.0 (25.0-35.0) pg MCHC 30.5 L (31.0-37.0) g/dL RDW 17.9 H (11.5-15.5) % Plt Count 198 (150-450) k/uL Neutrophils % 80 % Lymphocytes % 10 % Monocytes % 5 % Eosinophils % 1 % Basophils % 1 % Neutrophils # 6.1 (1.3-7.7) k/uL Lymphocytes # 0.8 L (1.0-4.8) k/uL Monocytes # 0.4 (0-1.0) k/uL Eosinophils # 0.1 (0-0.7) k/uL Basophils # 0.1 (0-0.2) k/uL Hypochromasia Moderate Anisocytosis Slight Macrocytosis Moderate PT 11.9 (9.0-12.0) sec INR 1.2 (<1.1) APTT 22.8 (22.0-30.0) sec Sodium 142 (137-145) mmol/L Potassium 4.5 (3.5-5.1) mmol/L Chloride 96 L (98-107) mmol/L Carbon Dioxide 25 (22-30) mmol/L Anion Gap 21 mmol/L BUN 41 H (9-20) mg/dL Creatinine 7.84 H* (0.66-1.25) mg/dL Est GFR (MDRD) Af Amer 9 (>60 ml/min/1.73 sqM) Est GFR (MDRD) Non-Af 8 (>60 ml/min/1.73 sqM) Glucose 245 H (74-99) mg/dL POC Glucose (mg/dL) (75-99) mg/dL POC Glu Executor Of Estate ID Calcium 8.4 (8.4-10.2) mg/dL Total Bilirubin 1.3 (0.2-1.3) mg/dL AST 52 (17-59) U/L ALT 41 (21-72) U/L Alkaline Phosphatase 285 H (38-126) U/L Total Protein 8.6 H (6.3-8.2) g/dL Albumin 4.7 (3.5-5.0) g/dL Amylase 79 (30-110) U/L Lipase 64 (23-300) U/L Acetone, Qual Positive (Negative) 03/29/16 Range/Units 18:11 WBC (3.8-10.6) k/uL RBC (4.30-5.90) m/uL Hgb (13.0-17.5) gm/dL Hct (39.0-53.0) % MCV (80.0-100.0) fL MCH (25.0-35.0) pg MCHC (31.0-37.0) g/dL RDW (11.5-15.5) % Plt Count (150-450) k/uL Neutrophils % % Lymphocytes % % Monocytes % % Eosinophils % % Basophils % % Neutrophils # (1.3-7.7) k/uL Lymphocytes # (1.0-4.8) k/uL Monocytes # (0-1.0) k/uL Eosinophils # (0-0.7) k/uL Basophils # (0-0.2) k/uL Hypochromasia Anisocytosis Macrocytosis PT (9.0-12.0) sec INR (<1.1) APTT (22.0-30.0) sec Sodium (137-145) mmol/L Potassium (3.5-5.1) mmol/L Chloride (98-107) mmol/L Carbon Dioxide (22-30) mmol/L Anion Gap mmol/L BUN (9-20) mg/dL Creatinine (0.66-1.25) mg/dL Est GFR (MDRD) Af Amer (>60 ml/min/1.73 sqM) Est GFR (MDRD) Non-Af (>60 ml/min/1.73 sqM) Glucose (74-99) mg/dL POC Glucose (mg/dL) 220 H (75-99) mg/dL POC Glu Executor Of Estate ID Aristeo, Jonelle Calcium (8.4-10.2) mg/dL Total Bilirubin (0.2-1.3) mg/dL AST (17-59) U/L ALT (21-72) U/L Alkaline Phosphatase (38-126) U/L Total Protein (6.3-8.2) g/dL Albumin (3.5-5.0) g/dL Amylase (30-110) U/L Lipase (23-300) U/L Acetone, Qual (Negative) - Radiology Data Radiology results: image reviewed (KUB shows no acute process. Widespread atherosclerotic calcifications.) Disposition Clinical Impression: Intractable nausea and vomiting, DKA (diabetic ketoacidoses) Disposition: ADMITTED IP TO THIS HOSP
[2016-03-29] MEDS ORDERED: hydrALAZINE HCL 20 MG/ML 1 ML VIAL IVP STA ×2 (17:21→19:06)
[2016-03-29 17:54] LABS: Anisocytosis Slight; Basophils # (A) 0.1 k/uL (0-0.2); Basophils % (A) 1 %; CH 30.9; CHCM 30.6; Eosinophils # (A) 0.1 k/uL (0-0.7); Eosinophils % (A) 1 %; HCT 45.8 % (39.0-53.0); HDW 2.75; Hypochromasia Moderate; Luc # (Auto) 0.23; Luc % (Auto) 3; Lymphocytes # (A) 0.8 k/uL (1.0-4.8); Lymphocytes % (A) 10 %; MCHC 30.5 g/dL (31.0-37.0); MCV 101.7 fL (80.0-100.0); Macrocytosis Moderate; Mean Platelet Volume 7.4; Monocytes # (A) 0.4 k/uL (0-1.0); Monocytes % (A) 5 %; Neutrophils # (A) 6.1 k/uL (1.3-7.7); Neutrophils % (A) 80 %; RDW 17.9 % (11.5-15.5); WBC 7.7 k/uL (3.8-10.6); WBC (Perox) 7.86
[2016-03-29 18:04] LABS: ALT 41 U/L (21-72); AST 52 U/L (17-59); Alkaline Phosphatase 285 U/L (38-126); Amylase 79 U/L (30-110); Anion Gap 21 mmol/L; Blood Urea Nitrogen 41 mg/dL (9-20); Calcium 8.4 mg/dL (8.4-10.2); Carbon Dioxide 25 mmol/L (22-30); Chloride 96 mmol/L (98-107); Glucose 245 mg/dL (74-99); Potassium 4.5 mmol/L (3.5-5.1); Sodium 142 mmol/L (137-145); Total Bilirubin 1.3 mg/dL (0.2-1.3); Total Protein 8.6 g/dL (6.3-8.2)
[2016-03-29 18:07] LABS: Non-African American GFR(MDRD) 8 (>60 ml/min/1.73 sqM)
[2016-03-29 18:12] LABS: Glucose,Whole Blood 220 mg/dL (75-99)
[2016-03-29 18:14] LABS: INR 1.2 (<1.1); Partial Thromboplastin Time 22.8 sec (22.0-30.0); Prothrombin Time 11.9 sec (9.0-12.0)
--- NOTE | 2016-03-29 19:02 | XR ---
EXAMINATION TYPE: XR KUB DATE OF EXAM: 03/29/2016 6:17 PM COMPARISON: 01/25/2016 HISTORY: Pain and vomiting TECHNIQUE: Two standing upright views FINDINGS: The cardiac silhouette is enlarged, similar to the prior study. Diffuse and prominent wides pread atherosclerotic intimal calcifications are seen throughout the arterial anatomy of the abdomen and pelvis. The bowel gas pattern is normal. There is no pneumatosis and no pneumoperitoneum. No evident mass or mass effect. No focal skeletal findings. IMPRESSION: 1. NO ACUTE PROCESS. 2. Widespread atherosclerotic calcifications and moderate marked enlargement of the cardiac silhouett e.
[2016-03-29] MEDS ORDERED: SODIUM CHLORIDE 0.9% 1,000 ML IV ONE (20:16)
[2016-03-29] MEDS ORDERED: LABETALOL SYRINGE 5 MG/ML IVP STA (20:16)
[2016-03-29] MEDS ORDERED: INSULIN REGULAR BOLUS (FROM DRIP BAG) IV ONE (20:16)
[2016-03-29] MEDS ORDERED: HYDROmorphone 1 MG/ML 1 ML SYRINGE IVP STA (20:26)
[2016-03-29] MEDS ORDERED: INSULIN REGULAR 100 UNIT in SODIUM CHLORIDE 0.9% 100 ML IV SCH (20:30)
[2016-03-29] MEDS ORDERED: SODIUM CHLORIDE 0.9% 1,000 ML IV SCH (20:30)
[2016-03-29 20:57] LABS: Glucose,Whole Blood 190 mg/dL (75-99)
[2016-03-29 22:13] LABS: Glucose,Whole Blood 88 mg/dL (75-99)
[2016-03-29] MEDS ORDERED: NACL IV SCH ×2 (22:30)
[2016-03-29] MEDS ORDERED: KCL IV SCH ×2 (22:30)
[2016-03-29] MEDS ORDERED: DEXTROSE IV SCH ×2 (22:30)
[2016-03-29 22:33] LABS: Glucose,Whole Blood 86 mg/dL (75-99)
[2016-03-29 22:33] LABS: Phosphorous 7.3 mg/dL (2.5-4.5); Potassium 4.2 mmol/L (3.5-5.1)
[2016-03-29 22:38] VITALS: BP 165/88; PULSE 88; RESP 16; TEMP 98
--- NOTE | 2016-04-04 11:17 | HP ---
DATE OF ADMISSION: HISTORY AND PHYSICAL AND DISCHARGE SUMMARY Mr. Fowler was admitted to the hospital after having some abdominal discomfort. We accepted the admission over the phone after speaking to Dr. Chiang. However, patient left AGAINST MEDICAL ADVISE it appears and was never physically seen by me or my partners.
== END 2016-03-29 22:46 | disposition left against medical advice (07) ==
LOC: EC 13:37 → 6SEL 20:16 → UNDOADMIN 20:16 → 6SEL 21:38 → UNDODISIN 23:10
DX: E13.10 Other specified diabetes mellitus with ketoacidosis without coma (principal); I13.0 Hypertensive heart and chronic kidney disease with heart failure and stage 1 through stage 4 chronic kidney disease, or unspecified chronic kidney disease; N18.4 Chronic kidney disease, stage 4 (severe); I50.9 Heart failure, unspecified; K31.84 Gastroparesis; G40.909 Epilepsy, unspecified, not intractable, without status epilepticus; K21.9 Gastro-esophageal reflux disease without esophagitis; F32.9 Major depressive disorder, single episode, unspecified; F41.9 Anxiety disorder, unspecified; G89.29 Other chronic pain; R01.1 Cardiac murmur, unspecified; E11.319 Type 2 diabetes mellitus with unspecified diabetic retinopathy without macular edema; E11.43 Type 2 diabetes mellitus with diabetic autonomic (poly)neuropathy; E03.9 Hypothyroidism, unspecified; R10.9 Unspecified abdominal pain; M54.9 Dorsalgia, unspecified; K44.9 Diaphragmatic hernia without obstruction or gangrene; Z79.4 Long term (current) use of insulin; Z79.899 Other long term (current) drug therapy; Z87.891 Personal history of nicotine dependence; Z99.2 Dependence on renal dialysis; Z88.5 Allergy status to narcotic agent; Z88.8 Allergy status to other drugs, medicaments and biological substances
CPT/HCPCS: 96376; 96361; 96365; 96366; 96372; 96375; 99285; 36415; 80051; 80053; 82150; 82565; 82009; 83690; 84100; 82947; 84520; 85025; 85610; 85730; 74000; J0360 ×2; J1200; J0500; J2405; J1170; C9113; 99283

== ENCOUNTER 2016-05-20 13:06 | Emergency (ER) | payer MEDICARE, OTHER ==
[2016-05-20] MEDS ORDERED: SODIUM CHLORIDE 0.9% 500 ML IV STA (13:57)
[2016-05-20] MEDS ORDERED: HYDROmorphone 1 MG/ML 1 ML SYRINGE IVP STA (13:57)
[2016-05-20] MEDS ORDERED: ONDANSETRON 4 MG/2 ML VIAL IVP STA (13:57)
--- NOTE | 2016-05-20 14:02 | ED ---
Abdominal Pain HPI - General Chief Complaint: Abdominal Pain Stated Complaint: abd pain Time Seen by Provider: 05/20/16 13:35 Source: patient, RN notes reviewed Mode of arrival: wheelchair Limitations: no limitations - History of Present Illness Initial Comments: This is a 40-year-old male history of renal failure and gastroparesis who presents with complaints of his typical abdominal pain failing today is right upper quadrant with intractable nausea and dry heaving. He states the pain is episodic and stabbing in nature severe when it does come on. He is not been able to keep any fluids down or his oral Zofran. No diarrhea no other complaints MD Complaint: abdominal pain, other - Related Data Home Medications Medication Instructions Recorded Confirmed LORazepam [Ativan] 1 mg PO DAILY PRN 06/06/14 05/20/16 Carvedilol [Coreg] 25 mg PO BID 07/10/14 05/20/16 amLODIPine BESYLATE [Amlodipine 10 mg PO DAILY 06/24/15 05/20/16 Besylate] Cinacalcet HCl [Sensipar] 60 mg PO DAILY 10/31/15 05/20/16 Hydrocodone/Acetaminophen 0.5 tab PO DAILY PRN 12/11/15 05/20/16 [Hydrocodon-Acetaminophn 10-325] Ondansetron Odt [Zofran ODT] 4 mg PO BID PRN 12/11/15 05/20/16 Insulin Glargine [Lantus] 12 unit SQ HS 01/12/16 05/20/16 Folic Acid-Vit B Complex-Vit C 1 cap PO DAILY 01/25/16 05/20/16 [Nephrocaps] B Complex & C No.20/Folic Acid 1 mg PO DAILY 02/20/16 05/20/16 [Triphrocaps Softgel] Cyclobenzaprine [Flexeril] 10 mg PO TID PRN 02/20/16 05/20/16 INSULIN LISPRO (humaLOG) [humaLOG See Protocol SQ AC-TID 02/20/16 05/20/16 (formulary)] Omeprazole [PriLOSEC] 20 mg PO DAILY 02/20/16 05/20/16 HYDROmorphone [Dilaudid] 2 mg PO DAILY PRN 03/28/16 05/20/16 hydrALAZINE HCL [Apresoline] 100 mg PO QID 03/28/16 05/20/16 Previous Rx's Medication Instructions Recorded cloNIDine HCL [Catapres] 0.2 mg PO TID tab 02/20/16 Allergies Allergy/AdvReac Type Severity Reaction Status Date / Time codeine Allergy Itching Verified 05/20/16 13:37 metoclopramide HCl AdvReac MUSCLE Verified 05/20/16 13:37 [From Reglan] SPASMS morphine AdvReac INCREASES Verified 05/20/16 13:37 PAIN Review of Systems ROS Statement: Those systems with pertinent positive or pertinent negative responses have been documented in the HPI. ROS Other: All systems not noted in ROS Statement are negative. Past Medical History Past Medical History: Chest Pain / Angina, Heart Failure, Diabetes Mellitus, Dialysis, Eye Disorder, GERD/Reflux, Hypertension, Renal Disease, Seizure Disorder, Thyroid Disorder Additional Past Medical History / Comment(s): Chronic renal failure stage IV, hemodialysis, past peritoneal dialysis with peritonitis, gastroparesis, cyclic vomiting, chronic abdominal pain, pancreatitis, IDDM type II brittle, heart murmur, heat stroke-no residual, diabetic retinopathy bilaterally, retinal detachment with surgery stated "rt eye vision since is blurry, lt eye better", hypothyroid, hiatal hernia, sinusitis, bronchitis, chronic back pain, anemia, seizure in the past. History of Any Multi-Drug Resistant Organisms: None Reported Past Surgical History: Cholecystectomy, Heart Catheterization, Hernia Repair Additional Past Surgical History / Comment(s): bilateral retinal reattachment sx , hemodialysis catheter in Feb 2013, lt arm fistual, L inguinal hernia, 2009 cardiac cath. Past Anesthesia/Blood Transfusion Reactions: No Reported Reaction Past Psychological History: Anxiety, Depression Additional Psychological History / Comment(s): Pt has his mother living with him. He uses no assistive device. He drives. Smoking Status: Former smoker Past Alcohol Use History: None Reported Additional Past Alcohol Use History / Comment(s): STARTED SMOKING AT AGE 18 SMOKED SOCIALLY AND QUIT 1998 Past Drug Use History: None Reported Additional Drug Use History / Comment(s): PAST medical Marijuana use in high school. - Past Family History Father History Unknown: Yes Mother History Unknown: Yes Family Medical History: COPD Additional Family Medical History / Comment(s): Mother has never smoked. Mother' s brother had diabetes and multiple sclerosis. Brother(s) Family Medical History: Diabetes Mellitus Additional Family Medical History / Comment(s): multiple sclerosis General Exam - General Exam Comments Initial Comments: This is a well-developed well-nourished awake alert anxious appearing male Limitations: no limitations General appearance: alert, anxious, in distress Head exam: Present: atraumatic, normocephalic, normal inspection Eye exam: Present: normal appearance, PERRL, EOMI. Absent: scleral icterus, conjunctival injection, periorbital swelling ENT exam: Present: mucous membranes dry Neck exam: Present: normal inspection. Absent: tenderness, meningismus, lymphadenopathy Respiratory exam: Present: normal lung sounds bilaterally. Absent: respiratory distress, wheezes, rales, rhonchi, stridor Cardiovascular Exam: Present: regular rate, normal rhythm, normal heart sounds. Absent: systolic murmur, diastolic murmur, rubs, gallop, clicks GI/Abdominal exam: Present: soft, tenderness, other (Right upper quadrant pain palpation no guarding or rebound there are well-healed surgical scars.) Rectal exam: Present: deferred Extremities exam: Present: full ROM, normal capillary refill, other (Stasis dermatitis of lower extremities) Back exam: Present: normal inspection Neurological exam: Present: alert, oriented X3, CN II-XII intact Psychiatric exam: Present: normal affect, normal mood Skin exam: Present: warm, dry, intact, normal color. Absent: rash Course Vital Signs 05/20/16 05/20/16 05/20/16 13:12 15:03 15:36 Temperature 97.5 F L Pulse Rate 87 94 Respiratory 20 18 Rate Blood Pressure 209/131 257/126 252/127 O2 Sat by Pulse 98 Oximetry Medical Decision Making - Medical Decision Making Patient has some relief but started having crampy sharp abdominal pain again also with nausea. I did discuss the findings with him he will be admitted he demonstrates uncontrolled diabetes he does have dialysis on Saturday this will be arranged. I did discuss case Dr. Santamaria - Lab Data Result diagrams: 05/20/16 14:35 05/20/16 14:35 Lab Results 05/20/16 05/20/16 Range/Units 14:35 14:35 WBC 8.4 (3.8-10.6) k/uL RBC 3.48 L (4.30-5.90) m/uL Hgb 10.3 L D (13.0-17.5) gm/dL Hct 34.3 L (39.0-53.0) % MCV 98.7 (80.0-100.0) fL MCH 29.7 (25.0-35.0) pg MCHC 30.2 L (31.0-37.0) g/dL RDW 17.6 H (11.5-15.5) % Plt Count 283 (150-450) k/uL Neutrophils % 78 % Lymphocytes % 9 % Monocytes % 6 % Eosinophils % 4 % Basophils % 1 % Neutrophils # 6.5 (1.3-7.7) k/uL Lymphocytes # 0.8 L (1.0-4.8) k/uL Monocytes # 0.5 (0-1.0) k/uL Eosinophils # 0.3 (0-0.7) k/uL Basophils # 0.1 (0-0.2) k/uL Hypochromasia Moderate Anisocytosis Slight Macrocytosis Slight Sodium 137 (137-145) mmol/L Potassium 5.0 (3.5-5.1) mmol/L Chloride 92 L (98-107) mmol/L Carbon Dioxide 28 (22-30) mmol/L Anion Gap 17 mmol/L BUN 40 H (9-20) mg/dL Creatinine 9.50 H* (0.66-1.25) mg/dL Est GFR (MDRD) Af Amer 8 (>60 ml/min/1.73 sqM) Est GFR (MDRD) Non-Af 6 (>60 ml/min/1.73 sqM) Glucose 556 H* (74-99) mg/dL Calcium 8.9 (8.4-10.2) mg/dL Total Bilirubin 0.8 (0.2-1.3) mg/dL AST 19 (17-59) U/L ALT 32 (21-72) U/L Alkaline Phosphatase 194 H (38-126) U/L Total Protein 7.1 (6.3-8.2) g/dL Albumin 4.0 (3.5-5.0) g/dL Amylase 47 (30-110) U/L Lipase 129 (23-300) U/L - Radiology Data Radiology results: report reviewed (Nonspecific x-rays), image reviewed Disposition Clinical Impression: Intractable vomiting, Uncontrolled diabetes mellitus, Abdominal pain, Chronic renal failure syndrome Disposition: ADMITTED IP TO THIS HOSP Condition: Stable
[2016-05-20] MEDS ORDERED: hydrALAZINE HCL 20 MG/ML 1 ML VIAL IVP STA ×2 (14:11→16:36)
[2016-05-20 14:49] LABS: Anisocytosis Slight; CH 29.6; CHCM 30.2; Hypochromasia Moderate; Lymphocytes % (A) 9 %; Macrocytosis Slight; RDW 17.6 % (11.5-15.5)
[2016-05-20 14:54] LABS: Basophils # (A) 0.1 k/uL (0-0.2); Basophils % (A) 1 %; Eosinophils # (A) 0.3 k/uL (0-0.7); Eosinophils % (A) 4 %; HCT 34.3 % (39.0-53.0); HDW 2.63; Luc # (Auto) 0.21; Luc % (Auto) 3; Lymphocytes # (A) 0.8 k/uL (1.0-4.8); MCH 29.7 pg (25.0-35.0); MCHC 30.2 g/dL (31.0-37.0); MCV 98.7 fL (80.0-100.0); Mean Platelet Volume 7.9; Monocytes # (A) 0.5 k/uL (0-1.0); Monocytes % (A) 6 %; Neutrophils # (A) 6.5 k/uL (1.3-7.7); Neutrophils % (A) 78 %; RBC 3.48 m/uL (4.30-5.90); WBC 8.4 k/uL (3.8-10.6); WBC (Perox) 8.75
[2016-05-20 15:03] VITALS: RESP 18
[2016-05-20 15:04] LABS: Calcium 8.9 mg/dL (8.4-10.2); HGB 10.3 gm/dL (13.0-17.5); Total Bilirubin 0.8 mg/dL (0.2-1.3); Total Protein 7.1 g/dL (6.3-8.2)
[2016-05-20] MEDS ORDERED: INSULIN REGULAR 100 UNIT in SODIUM CHLORIDE 0.9% 100 ML IV ONE (15:14)
--- NOTE | 2016-05-20 15:34 | XR ---
EXAMINATION TYPE: XR KUB DATE OF EXAM: 05/20/2016 3:25 PM COMPARISON: 01/25/2016 HISTORY: Right upper quadrant pain TECHNIQUE: 2 views FINDINGS: There is no sign of intestinal obstruction or pneumoperitoneum. There is a relative lack of intestinal gas. There is faint calcification involving both kidneys. This is probably vascular calci fication. Lung bases are clear. Heart is probably enlarged. There is vascular calcification. There is vas deferens calcification. I see no focal bone destruction. IMPRESSION: Nonacute abdomen. Calcification consistent with diffuse vascular disease. This appears si milar to last exam. No free air. Cardiomegaly. Vas deferens calcification is consistent with diabetes .
[2016-05-20] MEDS ORDERED: NALOXONE 0.4 MG/ML 1 ML VIAL IV PRN (15:56)
[2016-05-20] MEDS ORDERED: cloNIDine HCL 0.2 MG TAB PO SCH (16:00)
[2016-05-20] MEDS ORDERED: SODIUM CHLORIDE 0.9% 1,000 ML IV SCH (16:00)
[2016-05-20] MEDS ORDERED: ONDANSETRON ODT 4 MG TAB PO PRN (16:00)
[2016-05-20] MEDS ORDERED: HYDROcodone/APAP 10-325MG 1 EACH TAB PO PRN (16:00)
[2016-05-20] MEDS ORDERED: LORazepam 1 MG TAB PO PRN (16:00)
[2016-05-20] MEDS ORDERED: HYDROmorphone 2 MG TAB PO PRN (16:00)
[2016-05-20] MEDS ORDERED: CYCLOBENZAPRINE 10 MG TAB PO PRN (16:00)
[2016-05-20] MEDS ORDERED: LORazepam 2 MG/ML SYRINGE IV STA (16:37)
[2016-05-20 16:58] LABS: Glucose,Whole Blood 399 mg/dL (75-99)
[2016-05-20 17:58] VITALS: BP 210/102; PULSE 95; TEMP 97.8
[2016-05-20] MEDS ORDERED: NON-FORMULARY DRUG (Hydralazine Hcl [Apresoline] 100 MG) PO SCH (18:00)
[2016-05-20 18:05] LABS: Glucose,Whole Blood 297 mg/dL (75-99)
[2016-05-20] MEDS ORDERED: NON-FORMULARY DRUG (Carvedilol [Coreg] 25 MG) PO SCH (21:00)
[2016-05-21] MEDS ORDERED: FOLIC ACID-VIT B COMPLEX-VIT C 1 CAP PO SCH ×2 (09:00)
[2016-05-21] MEDS ORDERED: CINACALCET HCL 60 MG PO SCH (09:00)
[2016-05-21] MEDS ORDERED: amLODIPine 10 MG TAB PO SCH (09:00)
[2016-05-21] MEDS ORDERED: NON-FORMULARY DRUG (Omeprazole 20 MG) PO SCH (09:00)
== END 2016-05-20 17:58 | disposition left against medical advice (07) ==
LOC: EC 13:06
DX: R10.11 Right upper quadrant pain (principal); G43.A1 Cyclical vomiting, in migraine, intractable; E11.22 Type 2 diabetes mellitus with diabetic chronic kidney disease; E11.319 Type 2 diabetes mellitus with unspecified diabetic retinopathy without macular edema; I13.0 Hypertensive heart and chronic kidney disease with heart failure and stage 1 through stage 4 chronic kidney disease, or unspecified chronic kidney disease; I50.9 Heart failure, unspecified; N18.4 Chronic kidney disease, stage 4 (severe); K21.9 Gastro-esophageal reflux disease without esophagitis; E03.9 Hypothyroidism, unspecified; E11.43 Type 2 diabetes mellitus with diabetic autonomic (poly)neuropathy; K31.84 Gastroparesis; I87.2 Venous insufficiency (chronic) (peripheral); D64.9 Anemia, unspecified; Z90.49 Acquired absence of other specified parts of digestive tract; Z88.5 Allergy status to narcotic agent; Z88.8 Allergy status to other drugs, medicaments and biological substances; Z79.4 Long term (current) use of insulin; Z53.29 Procedure and treatment not carried out because of patient's decision for other reasons; Z79.899 Other long term (current) drug therapy; Z87.891 Personal history of nicotine dependence; Z99.2 Dependence on renal dialysis
CPT/HCPCS: 96375 ×3; 96374 ×2; 99284 ×2; 36415; 80053; 82150; 82009; 83690; 85025; 74000; J0360; J2405; J1170

== ENCOUNTER 2016-05-21 09:10 | Emergency (ER) | payer MEDICARE, OTHER ==
[2016-05-21 09:16] VITALS: RESP 18
[2016-05-21] MEDS ORDERED: SODIUM CHLORIDE 0.9% 1,000 ML IV STA (09:20)
[2016-05-21 09:46] LABS: Anisocytosis Slight; Basophils # (A) 0.1 k/uL (0-0.2); Basophils % (A) 1 %; CH 29.6; CHCM 31.1; Eosinophils # (A) 0.3 k/uL (0-0.7); Eosinophils % (A) 4 %; HCT 34.9 % (39.0-53.0); HDW 2.69; Hypochromasia Slight; Luc # (Auto) 0.24; Luc % (Auto) 3; Lymphocytes # (A) 0.9 k/uL (1.0-4.8); Lymphocytes % (A) 10 %; MCH 30.2 pg (25.0-35.0); MCHC 31.6 g/dL (31.0-37.0); MCV 95.6 fL (80.0-100.0); Macrocytosis Slight; Mean Platelet Volume 7.9; Monocytes # (A) 0.4 k/uL (0-1.0); Monocytes % (A) 5 %; Neutrophils # (A) 7.2 k/uL (1.3-7.7); Neutrophils % (A) 78 %; RBC 3.65 m/uL (4.30-5.90); RDW 18.2 % (11.5-15.5); WBC 9.2 k/uL (3.8-10.6); WBC (Perox) 9.65
--- NOTE | 2016-05-21 09:58 | ED ---
Abdominal Pain HPI - General Chief Complaint: Abdominal Pain Stated Complaint: Nausea/Vomiting Time Seen by Provider: 05/21/16 09:12 Source: patient, EMS Mode of arrival: EMS Limitations: no limitations - History of Present Illness Initial Comments: 40-year-old male patient presents to emergency department today for complaints of upper abdominal pain, nausea, and vomiting that started last evening. Patient was seen and evaluated in this emergency department yesterday and was recommended for admission, patient states he felt better and didn't think he needed to stay. Patient states that his symptoms started shortly after he arrived home. Patient has a past medical history significant for diabetes, chronic anuric renal failure with dialysis, and ileus. states that his blood sugar was in the 300s at home. He states he is due for dialysis today. Patient does exhibit some hypertension, states he vomited up his blood pressure medication. Patient denies any fever or chills. Patient states he is having some shortness of breath, and thoracic back pain. Patient states he has been coughing with green sputum production. He denies any chest pain, dizziness, constipation, diarrhea, dark, bloody, or black stools. - Related Data Home Medications Medication Instructions Recorded Confirmed LORazepam [Ativan] 1 mg PO DAILY PRN 06/06/14 05/21/16 Carvedilol [Coreg] 25 mg PO BID 07/10/14 05/21/16 amLODIPine BESYLATE [Amlodipine 10 mg PO DAILY 06/24/15 05/21/16 Besylate] Cinacalcet HCl [Sensipar] 60 mg PO DAILY 10/31/15 05/21/16 Hydrocodone/Acetaminophen 0.5 tab PO DAILY PRN 12/11/15 05/21/16 [Hydrocodon-Acetaminophn 10-325] Ondansetron Odt [Zofran ODT] 4 mg PO BID PRN 12/11/15 05/21/16 Insulin Glargine [Lantus] 12 unit SQ HS 01/12/16 05/21/16 Folic Acid-Vit B Complex-Vit C 1 cap PO DAILY 01/25/16 05/21/16 [Nephrocaps] B Complex & C No.20/Folic Acid 1 mg PO DAILY 02/20/16 05/21/16 [Triphrocaps Softgel] Cyclobenzaprine [Flexeril] 10 mg PO TID PRN 02/20/16 05/21/16 INSULIN LISPRO (humaLOG) [humaLOG See Protocol SQ AC-TID 02/20/16 05/21/16 (formulary)] Omeprazole [PriLOSEC] 20 mg PO DAILY 02/20/16 05/21/16 HYDROmorphone [Dilaudid] 2 mg PO DAILY PRN 03/28/16 05/21/16 hydrALAZINE HCL [Apresoline] 100 mg PO QID 03/28/16 05/21/16 Previous Rx's Medication Instructions Recorded cloNIDine HCL [Catapres] 0.2 mg PO TID tab 02/20/16 Allergies Allergy/AdvReac Type Severity Reaction Status Date / Time codeine Allergy Itching Verified 05/21/16 09:12 metoclopramide HCl AdvReac MUSCLE Verified 05/21/16 09:12 [From Reglan] SPASMS morphine AdvReac INCREASES Verified 05/21/16 09:12 PAIN Review of Systems ROS Statement: Those systems with pertinent positive or pertinent negative responses have been documented in the HPI. ROS Other: All systems not noted in ROS Statement are negative. Past Medical History Past Medical History: Chest Pain / Angina, Heart Failure, Diabetes Mellitus, Dialysis, Eye Disorder, GERD/Reflux, Hypertension, Renal Disease, Seizure Disorder, Thyroid Disorder Additional Past Medical History / Comment(s): Chronic renal failure stage IV, hemodialysis, past peritoneal dialysis with peritonitis, gastroparesis, cyclic vomiting, chronic abdominal pain, pancreatitis, IDDM type II brittle, heart murmur, heat stroke-no residual, diabetic retinopathy bilaterally, retinal detachment with surgery stated "rt eye vision since is blurry, lt eye better", hypothyroid, hiatal hernia, sinusitis, bronchitis, chronic back pain, anemia, seizure in the past. History of Any Multi-Drug Resistant Organisms: None Reported Past Surgical History: Cholecystectomy, Heart Catheterization, Hernia Repair Additional Past Surgical History / Comment(s): bilateral retinal reattachment sx , hemodialysis catheter in Feb 2013, lt arm fistual, L inguinal hernia, 2009 cardiac cath. Past Anesthesia/Blood Transfusion Reactions: No Reported Reaction Past Psychological History: Anxiety, Depression Additional Psychological History / Comment(s): Pt has his mother living with him. He uses no assistive device. He drives. Smoking Status: Former smoker Past Alcohol Use History: None Reported Additional Past Alcohol Use History / Comment(s): STARTED SMOKING AT AGE 18 SMOKED SOCIALLY AND QUIT 1998 Past Drug Use History: None Reported Additional Drug Use History / Comment(s): PAST medical Marijuana use in high school. - Past Family History Father History Unknown: Yes Mother History Unknown: Yes Family Medical History: COPD Additional Family Medical History / Comment(s): Mother has never smoked. Mother' s brother had diabetes and multiple sclerosis. Brother(s) Family Medical History: Diabetes Mellitus Additional Family Medical History / Comment(s): multiple sclerosis General Exam Limitations: no limitations General appearance: alert, in distress (Moderate) Head exam: Present: atraumatic, normocephalic, normal inspection Eye exam: Present: normal appearance, PERRL, EOMI. Absent: scleral icterus, conjunctival injection, periorbital swelling ENT exam: Present: normal exam, mucous membranes moist Neck exam: Present: normal inspection. Absent: tenderness, meningismus, lymphadenopathy Respiratory exam: Present: normal lung sounds bilaterally. Absent: respiratory distress, wheezes, rales, rhonchi, stridor Cardiovascular Exam: Present: regular rate, normal rhythm, normal heart sounds. Absent: systolic murmur, diastolic murmur, rubs, gallop, clicks GI/Abdominal exam: Present: soft, tenderness (Generalized abdominal tenderness) , normal bowel sounds. Absent: distended, guarding, rebound, rigid, organomegaly, mass, hernia Extremities exam: Present: normal inspection, full ROM, normal capillary refill. Absent: tenderness, pedal edema, joint swelling, calf tenderness Back exam: Present: normal inspection. Absent: tenderness, CVA tenderness (R), CVA tenderness (L) Neurological exam: Present: alert, oriented X3, CN II-XII intact Psychiatric exam: Present: normal affect, anxious Skin exam: Present: warm, dry, intact, pallor. Absent: rash Course Vital Signs 05/21/16 09:15 Temperature 98.0 F Pulse Rate 80 Respiratory 18 Rate Blood Pressure 175/87 O2 Sat by Pulse 97 Oximetry Medical Decision Making - Medical Decision Making 40-year-old male presents emergency department for abdominal pain, chronic issues nausea vomiting. Patient's lab work does not show any hyperglycemia and does show his chronic renal failure. Patient's blood pressure is within normal limits. Patient will be discharged at this time. We did call is dialysis center who states that he may come over for dialysis today as scheduled. Return parameters were discussed. - Lab Data Result diagrams: 05/21/16 09:25 05/21/16 09:25 Lab Results 05/21/16 05/21/16 Range/Units 09:25 09:25 WBC 9.2 (3.8-10.6) k/uL RBC 3.65 L (4.30-5.90) m/uL Hgb 11.0 L (13.0-17.5) gm/dL Hct 34.9 L (39.0-53.0) % MCV 95.6 (80.0-100.0) fL MCH 30.2 (25.0-35.0) pg MCHC 31.6 (31.0-37.0) g/dL RDW 18.2 H (11.5-15.5) % Plt Count 293 (150-450) k/uL Neutrophils % 78 % Lymphocytes % 10 % Monocytes % 5 % Eosinophils % 4 % Basophils % 1 % Neutrophils # 7.2 (1.3-7.7) k/uL Lymphocytes # 0.9 L (1.0-4.8) k/uL Monocytes # 0.4 (0-1.0) k/uL Eosinophils # 0.3 (0-0.7) k/uL Basophils # 0.1 (0-0.2) k/uL Hypochromasia Slight Anisocytosis Slight Macrocytosis Slight Sodium 144 (137-145) mmol/L Potassium 3.9 (3.5-5.1) mmol/L Chloride 98 (98-107) mmol/L Carbon Dioxide 28 (22-30) mmol/L Anion Gap 18 mmol/L BUN 43 H (9-20) mg/dL Creatinine 10.52 H* (0.66-1.25) mg/dL Est GFR (MDRD) Af Amer 7 (>60 ml/min/1.73 sqM) Est GFR (MDRD) Non-Af 6 (>60 ml/min/1.73 sqM) Glucose 144 H (74-99) mg/dL Calcium 8.6 (8.4-10.2) mg/dL Total Bilirubin 0.9 (0.2-1.3) mg/dL AST 25 (17-59) U/L ALT 28 (21-72) U/L Alkaline Phosphatase 191 H (38-126) U/L Total Protein 7.0 (6.3-8.2) g/dL Albumin 3.9 (3.5-5.0) g/dL Amylase 54 (30-110) U/L Lipase 87 (23-300) U/L Acetone, Qual Negative (Negative) Disposition Clinical Impression: Vomiting, Chronic abdominal pain, Chronic kidney failure Disposition: HOME SELF-CARE Condition: Stable Instructions: Abdominal Pain (ED) Additional Instructions: Please go for dialysis as scheduled today.Please return to the Emergency Department if symptoms worsen or any other concerns. Time of Disposition: 10:33
[2016-05-21 10:06] LABS: ALT 28 U/L (21-72); AST 25 U/L (17-59); Alkaline Phosphatase 191 U/L (38-126); Amylase 54 U/L (30-110); Anion Gap 18 mmol/L; Blood Urea Nitrogen 43 mg/dL (9-20); Calcium 8.6 mg/dL (8.4-10.2); Carbon Dioxide 28 mmol/L (22-30); Chloride 98 mmol/L (98-107); Glucose 144 mg/dL (74-99); Potassium 3.9 mmol/L (3.5-5.1); Sodium 144 mmol/L (137-145); Total Bilirubin 0.9 mg/dL (0.2-1.3)
--- NOTE | 2016-05-21 10:10 | XR ---
EXAMINATION TYPE: XR chest 2V DATE OF EXAM: 05/21/2016 9:57 AM COMPARISON: Prior chest x-ray February 19, 2016. HISTORY: Chest and abdominal pain. TECHNIQUE: Frontal and lateral views of the chest are obtained. FINDINGS: Reticular interstitial prominence is redemonstrated. There is no focal air space opacity, p leural effusion, or pneumothorax seen. The cardiac silhouette size remains significantly enlarged. T he osseous structures are intact. Cholecystectomy clips are redemonstrated on lateral view. IMPRESSION: Prominent cardiomegaly redemonstrated for patient's age, cannot exclude mild interstitia l edema or CHF exacerbation. Clinical correlation advised.
[2016-05-21 10:11] LABS: Non-African American GFR(MDRD) 6 (>60 ml/min/1.73 sqM)
[2016-05-21] MEDS ORDERED: ONDANSETRON 4 MG/2 ML VIAL IVP STA (10:38)
[2016-05-21] MEDS ORDERED: HYDROmorphone 1 MG/ML 1 ML SYRINGE IVP STA (10:38)
[2016-05-21 10:48] VITALS: BP 185/93; PULSE 74; TEMP 97.6
== END 2016-05-21 10:54 | disposition home or self-care (01) ==
LOC: EC 09:10
DX: R10.84 Generalized abdominal pain (principal); G89.29 Other chronic pain; R11.2 Nausea with vomiting, unspecified; E11.22 Type 2 diabetes mellitus with diabetic chronic kidney disease; I13.0 Hypertensive heart and chronic kidney disease with heart failure and stage 1 through stage 4 chronic kidney disease, or unspecified chronic kidney disease; I50.9 Heart failure, unspecified; N18.4 Chronic kidney disease, stage 4 (severe); E11.319 Type 2 diabetes mellitus with unspecified diabetic retinopathy without macular edema; K21.9 Gastro-esophageal reflux disease without esophagitis; D64.9 Anemia, unspecified; E11.43 Type 2 diabetes mellitus with diabetic autonomic (poly)neuropathy; K31.84 Gastroparesis; E03.9 Hypothyroidism, unspecified; I51.7 Cardiomegaly; Z90.49 Acquired absence of other specified parts of digestive tract; Z95.5 Presence of coronary angioplasty implant and graft; Z88.5 Allergy status to narcotic agent; Z88.8 Allergy status to other drugs, medicaments and biological substances; Z79.4 Long term (current) use of insulin; Z79.899 Other long term (current) drug therapy; Z87.891 Personal history of nicotine dependence
CPT/HCPCS: 96361 ×2; 96374 ×2; 96375 ×2; 99284 ×2; 36415; 80053; 82150; 82009; 83690; 85025; 71020; J2405; J1170

== ENCOUNTER 2016-06-13 08:38 | Inpatient (IN) | payer MEDICARE, OTHER ==
[2016-06-13] MEDS ORDERED: SODIUM CHLORIDE 0.9% 500 ML IV STA (08:47)
[2016-06-13] MEDS ORDERED: SODIUM CHLORIDE 0.9% 1,000 ML IV STA ×2 (08:47)
[2016-06-13] MEDS ORDERED: diphenhydrAMINE 50 MG/ML 1 ML VIAL IVP STA (08:48)
[2016-06-13] MEDS ORDERED: LORazepam 2 MG/ML SYRINGE IV STA (08:48)
[2016-06-13] MEDS ORDERED: HYDROmorphone 2 MG/ML 1 ML SYRINGE IVP STA (08:48)
[2016-06-13 09:16] LABS: Glucose,Whole Blood 402 mg/dL (75-99)
[2016-06-13 09:17] LABS: Anisocytosis Slight; Basophils # (A) 0.1 k/uL (0-0.2); Basophils % (A) 1 %; CH 29.2; CHCM 31.5; Eosinophils # (A) 0.3 k/uL (0-0.7); Eosinophils % (A) 3 %; HCT 33.4 % (39.0-53.0); HDW 2.35; HGB 10.5 gm/dL (13.0-17.5); Luc % (Auto) 2; Lymphocytes # (A) 0.9 k/uL (1.0-4.8); Lymphocytes % (A) 9 %; MCH 29.4 pg (25.0-35.0); MCHC 31.5 g/dL (31.0-37.0); MCV 93.2 fL (80.0-100.0); Mean Platelet Volume 8.1; Monocytes # (A) 0.5 k/uL (0-1.0); Monocytes % (A) 6 %; Neutrophils # (A) 7.5 k/uL (1.3-7.7); Neutrophils % (A) 79 %; RBC 3.58 m/uL (4.30-5.90); RDW 17.1 % (11.5-15.5); WBC 9.5 k/uL (3.8-10.6); WBC (Perox) 9.72
--- NOTE | 2016-06-13 09:51 | ED ---
General Adult HPI - General Chief complaint: Abdominal Pain Stated complaint: Abd Pain Time Seen by Provider: 06/13/16 08:40 Source: patient, RN notes reviewed, old records reviewed Mode of arrival: EMS Limitations: no limitations - History of Present Illness Initial comments: This is a 32-year-old male to the ER for evaluation. This patient was as reevaluation of nausea and vomiting. Severe nausea vomiting, patient unable keep his blood sugar control. States he does not feel well, but no fevers no diarrhea no abdominal pain. No chest pain. No shortness of breath. Patient unable to keep those medications. - Related Data Home Medications Medication Instructions Recorded Confirmed LORazepam [Ativan] 1 mg PO DAILY PRN 06/06/14 06/13/16 Carvedilol [Coreg] 25 mg PO BID 07/10/14 06/13/16 amLODIPine BESYLATE [Amlodipine 10 mg PO DAILY 06/24/15 06/13/16 Besylate] Cinacalcet HCl [Sensipar] 60 mg PO HS 10/31/15 06/13/16 Hydrocodone/Acetaminophen 0.5 tab PO DAILY PRN 12/11/15 06/13/16 [Hydrocodon-Acetaminophn 10-325] Ondansetron Odt [Zofran ODT] 4 mg PO BID PRN 12/11/15 06/13/16 Insulin Glargine [Lantus] 12 unit SQ HS 01/12/16 06/13/16 Folic Acid-Vit B Complex-Vit C 1 cap PO DAILY 01/25/16 06/13/16 [Nephrocaps] B Complex & C No.20/Folic Acid 1 mg PO DAILY 02/20/16 06/13/16 [Triphrocaps Softgel] Cyclobenzaprine [Flexeril] 10 mg PO TID PRN 02/20/16 06/13/16 INSULIN LISPRO (humaLOG) [humaLOG See Protocol SQ AC-TID 02/20/16 06/13/16 (formulary)] Omeprazole [PriLOSEC] 20 mg PO DAILY 02/20/16 06/13/16 HYDROmorphone [Dilaudid] 2 mg PO DAILY PRN 03/28/16 06/13/16 hydrALAZINE HCL [Apresoline] 100 mg PO QID 03/28/16 06/13/16 Lisinopril [Lisinopril] 5 mg PO TID-W/MEALS 06/13/16 06/13/16 Previous Rx's Medication Instructions Recorded cloNIDine HCL [Catapres] 0.2 mg PO TID tab 02/20/16 Allergies Allergy/AdvReac Type Severity Reaction Status Date / Time codeine Allergy Itching Verified 06/13/16 08:58 metoclopramide HCl AdvReac MUSCLE Verified 06/13/16 08:58 [From Reglan] SPASMS morphine AdvReac INCREASES Verified 06/13/16 08:58 PAIN Review of Systems ROS Statement: Those systems with pertinent positive or pertinent negative responses have been documented in the HPI. ROS Other: All systems not noted in ROS Statement are negative. Past Medical History Past Medical History: Chest Pain / Angina, Heart Failure, Diabetes Mellitus, Dialysis, Eye Disorder, GERD/Reflux, Hypertension, Renal Disease, Seizure Disorder, Thyroid Disorder Additional Past Medical History / Comment(s): Chronic renal failure stage IV, hemodialysis, past peritoneal dialysis with peritonitis, gastroparesis, cyclic vomiting, chronic abdominal pain, pancreatitis, IDDM type II brittle, heart murmur, heat stroke-no residual, diabetic retinopathy bilaterally, retinal detachment with surgery stated "rt eye vision since is blurry, lt eye better", hypothyroid, hiatal hernia, sinusitis, bronchitis, chronic back pain, anemia, seizure in the past. History of Any Multi-Drug Resistant Organisms: None Reported Past Surgical History: Cholecystectomy, Heart Catheterization, Hernia Repair Additional Past Surgical History / Comment(s): bilateral retinal reattachment sx , hemodialysis catheter in Feb 2013, lt arm fistual, L inguinal hernia, 2009 cardiac cath. Past Anesthesia/Blood Transfusion Reactions: No Reported Reaction Past Psychological History: Anxiety, Depression Additional Psychological History / Comment(s): Pt has his mother living with him. He uses no assistive device. He drives. Smoking Status: Former smoker Past Alcohol Use History: None Reported Additional Past Alcohol Use History / Comment(s): STARTED SMOKING AT AGE 18 SMOKED SOCIALLY AND QUIT 1998 Past Drug Use History: None Reported Additional Drug Use History / Comment(s): PAST medical Marijuana use in high school. - Past Family History Father History Unknown: Yes Mother History Unknown: Yes Family Medical History: COPD Additional Family Medical History / Comment(s): Mother has never smoked. Mother' s brother had diabetes and multiple sclerosis. Brother(s) Family Medical History: Diabetes Mellitus Additional Family Medical History / Comment(s): multiple sclerosis General Exam Limitations: no limitations General appearance: alert, in no apparent distress, anxious Head exam: Present: atraumatic, normocephalic, normal inspection Eye exam: Present: normal appearance, PERRL, EOMI. Absent: scleral icterus, conjunctival injection, periorbital swelling ENT exam: Present: normal exam, mucous membranes moist Neck exam: Present: normal inspection. Absent: tenderness, meningismus, lymphadenopathy Respiratory exam: Present: normal lung sounds bilaterally, wheezes, accessory muscle use, decreased breath sounds. Absent: respiratory distress, rales, rhonchi, stridor Cardiovascular Exam: Present: regular rate, normal rhythm, normal heart sounds. Absent: systolic murmur, diastolic murmur, rubs, gallop, clicks GI/Abdominal exam: Present: soft, normal bowel sounds. Absent: distended, tenderness, guarding, rebound, rigid Extremities exam: Present: normal inspection, full ROM, normal capillary refill. Absent: tenderness, pedal edema, joint swelling, calf tenderness Back exam: Present: normal inspection Neurological exam: Present: alert, oriented X3, CN II-XII intact Psychiatric exam: Present: normal affect, normal mood Skin exam: Present: warm, dry, intact, normal color. Absent: rash Course Vital Signs 06/13/16 06/13/16 06/13/16 08:42 09:09 09:54 Temperature 97.0 F L Pulse Rate 92 86 90 Respiratory 26 H 12 16 Rate Blood Pressure 251/119 213/103 232/108 O2 Sat by Pulse 94 L 100 98 Oximetry 06/13/16 10:05 Temperature Pulse Rate 88 Respiratory 15 Rate Blood Pressure 212/108 O2 Sat by Pulse 96 Oximetry - Reevaluation(s) Reevaluation #1: 06/13/16 09:51 Well-known medical history, medical records were thoroughly reviewed Reevaluation #2: 06/13/16 10:32 Patient is improving with adequate fluid hydration EKG Findings - EKG Comments: EKG Findings:: EKG shows normal sinus rhythm rate of 85, OR 142, QRS 102, QTC 483 Medical Decision Making - Medical Decision Making 40 male the ER for evaluation of nausea vomiting shortness of breath cough and congestion, positive pneumoniae intractable nausea and vomiting malignant hypertension, patient will be admitted for symptom control and monitoring of her cardiovascular status - Lab Data Result diagrams: 06/13/16 08:50 06/13/16 08:50 Lab Results 06/13/16 06/13/16 06/13/16 Range/Units 08:50 08:50 08:50 WBC 9.5 (3.8-10.6) k/uL RBC 3.58 L (4.30-5.90) m/uL Hgb 10.5 L (13.0-17.5) gm/dL Hct 33.4 L (39.0-53.0) % MCV 93.2 (80.0-100.0) fL MCH 29.4 (25.0-35.0) pg MCHC 31.5 (31.0-37.0) g/dL RDW 17.1 H (11.5-15.5) % Plt Count 223 (150-450) k/uL Neutrophils % 79 % Lymphocytes % 9 % Monocytes % 6 % Eosinophils % 3 % Basophils % 1 % Neutrophils # 7.5 (1.3-7.7) k/uL Lymphocytes # 0.9 L (1.0-4.8) k/uL Monocytes # 0.5 (0-1.0) k/uL Eosinophils # 0.3 (0-0.7) k/uL Basophils # 0.1 (0-0.2) k/uL Anisocytosis Slight Sodium 141 (137-145) mmol/L Potassium 4.3 (3.5-5.1) mmol/L Chloride 95 L (98-107) mmol/L Carbon Dioxide 26 (22-30) mmol/L Anion Gap 20 mmol/L BUN 60 H (9-20) mg/dL Creatinine 8.97 H* (0.66-1.25) mg/dL Est GFR (MDRD) Af Amer 8 (>60 ml/min/1.73 sqM) Est GFR (MDRD) Non-Af 7 (>60 ml/min/1.73 sqM) Glucose 493 H* (74-99) mg/dL POC Glucose (mg/dL) (75-99) mg/dL POC Glu Rn Training ID Plasma Lactic Acid Ronaldo 0.9 (0.7-2.0) mmol/L Calcium 8.9 (8.4-10.2) mg/dL Phosphorus 8.0 H* (2.5-4.5) mg/dL Magnesium 2.3 (1.6-2.3) mg/dL Total Bilirubin 1.1 (0.2-1.3) mg/dL AST 28 (17-59) U/L ALT 84 H (21-72) U/L Alkaline Phosphatase 333 H (38-126) U/L Total Protein 8.1 (6.3-8.2) g/dL Albumin 4.4 (3.5-5.0) g/dL Acetone, Qual Negative (Negative) 06/13/16 Range/Units 09:10 WBC (3.8-10.6) k/uL RBC (4.30-5.90) m/uL Hgb (13.0-17.5) gm/dL Hct (39.0-53.0) % MCV (80.0-100.0) fL MCH (25.0-35.0) pg MCHC (31.0-37.0) g/dL RDW (11.5-15.5) % Plt Count (150-450) k/uL Neutrophils % % Lymphocytes % % Monocytes % % Eosinophils % % Basophils % % Neutrophils # (1.3-7.7) k/uL Lymphocytes # (1.0-4.8) k/uL Monocytes # (0-1.0) k/uL Eosinophils # (0-0.7) k/uL Basophils # (0-0.2) k/uL Anisocytosis Sodium (137-145) mmol/L Potassium (3.5-5.1) mmol/L Chloride (98-107) mmol/L Carbon Dioxide (22-30) mmol/L Anion Gap mmol/L BUN (9-20) mg/dL Creatinine (0.66-1.25) mg/dL Est GFR (MDRD) Af Amer (>60 ml/min/1.73 sqM) Est GFR (MDRD) Non-Af (>60 ml/min/1.73 sqM) Glucose (74-99) mg/dL POC Glucose (mg/dL) 402 H (75-99) mg/dL POC Glu Rn Training ID Calli, Jenn Plasma Lactic Acid Ronaldo (0.7-2.0) mmol/L Calcium (8.4-10.2) mg/dL Phosphorus (2.5-4.5) mg/dL Magnesium (1.6-2.3) mg/dL Total Bilirubin (0.2-1.3) mg/dL AST (17-59) U/L ALT (21-72) U/L Alkaline Phosphatase (38-126) U/L Total Protein (6.3-8.2) g/dL Albumin (3.5-5.0) g/dL Acetone, Qual (Negative) Critical Care Time Critical Care Time: Yes Total Critical Care Time: 31 Disposition Clinical Impression: Fever, Intractable vomiting, Nosocomial pneumonia, Gastroparesis, Intractable nausea and vomiting, Acute hyperglycemia, Kidney failure, Hypertension complicating diabetes, Malignant hypertension Disposition: ADMITTED IP TO THIS [facility] Condition: Serious Referrals: Kala Onofre MD [Primary Care Provider] - 1-2 days
[2016-06-13] MEDS ORDERED: hydrALAZINE HCL 20 MG/ML 1 ML VIAL IVP STA (09:55)
[2016-06-13] MEDS ORDERED: LABETALOL 5 MG/ML VIAL MDV IVP STA (09:55)
[2016-06-13] MEDS ORDERED: cloNIDine HCL 0.1 MG TAB PO STA (09:55)
[2016-06-13 10:09] LABS: ALT 84 U/L (21-72); AST 28 U/L (17-59); Alkaline Phosphatase 333 U/L (38-126); Anion Gap 20 mmol/L; Blood Urea Nitrogen 60 mg/dL (9-20); Calcium 8.9 mg/dL (8.4-10.2); Carbon Dioxide 26 mmol/L (22-30); Chloride 95 mmol/L (98-107); Magnesium 2.3 mg/dL (1.6-2.3); Potassium 4.3 mmol/L (3.5-5.1); Sodium 141 mmol/L (137-145); Total Bilirubin 1.1 mg/dL (0.2-1.3); Total Protein 8.1 g/dL (6.3-8.2)
--- NOTE | 2016-06-13 10:15 | XR ---
EXAMINATION TYPE: XR chest 2V DATE OF EXAM: 06/13/2016 10:11 AM COMPARISON: 05/21/2016 INDICATION: Pain TECHNIQUE: Frontal and lateral views are obtained. FINDINGS: The heart size is enlarged. The pulmonary vasculature is prominent. There is diffuse increased lung markings greater in the lower lung vanegas. Correlate for bibasilar pn eumonia. Atypical pulmonary edema could be considered. IMPRESSION: 1. Bibasilar infiltrates. Correlate for pneumonia and atypical pulmonary edema.
[2016-06-13 10:19] LABS: Non-African American GFR(MDRD) 7 (>60 ml/min/1.73 sqM)
[2016-06-13 10:20] LABS: Troponin I 0.031 ng/mL (0.000-0.034)
[2016-06-13 10:22] LABS: Glucose 493 mg/dL (74-99)
[2016-06-13] MEDS ORDERED: PNEUMONIA PROTOCOL UTILIZED 1 EACH MISC PO PRN (10:26)
[2016-06-13] MEDS ORDERED: PIPERACILLIN-TAZOBACTAM 3.375 GM in DEXTROSE/WATER 1 50ML.BAG IVPB STA (10:26)
[2016-06-13] MEDS ORDERED: LEVOFLOXACIN 750MG-D5W PMX 750 MG in DEXTROSE/WATER 1 150ML.BAG IVPB STA (10:26)
[2016-06-13 10:32] LABS: Creatine Kinase MB 4.6 ng/mL (0.0-2.4)
[2016-06-13] MEDS ORDERED: INSULIN REGULAR 100 UNIT/ML VIAL IV ONE (10:40)
[2016-06-13 11:45] LABS: Glucose,Whole Blood 310 mg/dL (75-99)
[2016-06-13] MEDS: SODIUM CHLORIDE 0.9% 1,000 ML IV SCH ×2 (11:50→21:48)
[2016-06-13 13:25] LABS: Hemoglobin A1C 8.7 % (4.2-6.1)
[2016-06-13 14:46] LABS: Glucose,Whole Blood 306 mg/dL (75-99)
[2016-06-13] MEDS: INSULIN LISPRO (humaLOG) 300 UNIT/3 ML VIAL SQ SCH ×2 (15:14→17:55)
[2016-06-13] MEDS: HYDROmorphone 1 MG/ML 1 ML SYRINGE IVP PRN (16:31)
[2016-06-13] MEDS: ONDANSETRON 4 MG/2 ML VIAL IVP PRN (16:31)
[2016-06-13] MEDS ORDERED: HYDROmorphone 2 MG TAB PO PRN (16:43)
[2016-06-13] MEDS ORDERED: CYCLOBENZAPRINE 10 MG TAB PO PRN (16:43)
[2016-06-13] MEDS ORDERED: HYDROcodone/APAP 10-325MG 1 EACH TAB PO PRN (16:43)
[2016-06-13] MEDS ORDERED: LORazepam 1 MG TAB PO PRN (16:43)
[2016-06-13] MEDS: diphenhydrAMINE 50 MG/ML 1 ML VIAL IVP PRN (17:30)
[2016-06-13] MEDS: cloNIDine HCL 0.2 MG TAB PO SCH ×2 (17:56→21:49)
[2016-06-13 18:00] LABS: Glucose,Whole Blood 210 mg/dL (75-99)
[2016-06-13] MEDS: hydrALAZINE HCL 50 MG TAB PO SCH ×2 (18:00→21:49)
[2016-06-13] MEDS ORDERED: LISINOPRIL 20 MG TAB PO SCH (18:00)
--- NOTE | 2016-06-13 18:10 | HP ---
DATE OF ADMISSION: 06/13/2016 Patient is a 40-year-old a male well known to me from his previous hospitalization. Patient has had multiple hospitalizations in the past. Patient does have extensive history of diabetic ketoacidosis. Multiple hospitalizations in the past and end stage renal disease, did miss his dialysis, came in with complaints of severe abdominal pain, nausea, vomiting, which is getting better and itching. Patient did miss dialysis and patient was hypoxemic with saturations going down to as low as 70. Patient is presently on 4 liters oxygen, does not use any oxygen at home with highly elevated blood pressure and patient was complaining of very minimal cough with whitish sputum production. I was initially told that patient has pneumonia. I am unable to despite multiple attempts, I am unable to open the x-rays to review by myself and I will obtain a dedicated chest x-ray. The patient has abdominal as well as chest combined x-ray which is inconclusive in my opinion. Nephrology will be consulted. Patient will need dialysis probably today. Patient does not make much urine. Patient denied any fever, chills. Patient denied any dysuria. REVIEW OF SYSTEMS: CONSTITUTIONAL: No fever, no malaise, no fatigue. HEENT: No recent visual problems or hearing problems. Denied any sore throat. CARDIOVASCULAR: No chest pain, orthopnea, PND, no palpitations, no syncope. PULMONARY: As described in HPI. Patient denied any orthopnea, PND. GASTROINTESTINAL: No diarrhea, no nausea, no vomiting, no abdominal pain. Normoactive bowel sounds. NEUROLOGICAL: No headaches, no weakness, no numbness. HEMATOLOGICAL: Denies any bleeding or petechiae. GENITOURINARY: Denies any burning micturition, frequency, or urgency. MUSCULOSKELETAL/RHEUMATOLOGICAL: Denies any joint pain, swelling, or any muscle pain. ENDOCRINE: Denies any polyuria or polydipsia. The rest of the 14 point review of systems is negative. PAST MEDICAL HISTORY: Significant for end-stage renal disease, hemodialysis dependent, gastroesophageal reflux disease, hypothyroidism, type 1 diabetes mellitus, uncontrolled hypertension, and history of cholecystectomy, had a cardiac catheterization in the past, hernia repair and anxiety, depression. SOCIAL HISTORY: Former smoker. Quit smoking in 1998. Patient past use of marijuana. Denied any alcohol abuse or drug abuse. FAMILY HISTORY: COPD, diabetes mellitus and multiple sclerosis in the family. Home medications: Home medications include: 1. Albuterol ipratropium. 2. Amlodipine. 3. Clonidine. 4. Lisinopril. 5. Hydralazine. 6. Omeprazole. 7. Lorazepam. 8. Lantus 12 units subcutaneous at bedtime. 9. Sliding scale insulin. 10. Hydromorphone 2 mg daily p.r.n. 11. Cyclobenzaprine. 12. Coreg. 13. B complex vitamin. PHYSICAL EXAMINATION: VITAL SIGNS: Temperature 97.4, pulse of 69, respiratory rate of 14, blood pressure is 207/104, saturating at 99% on 4 liters O2 by nasal cannula. GENERAL: The patient is alert and oriented x3, not in any acute distress. Well developed, well nourished. HEENT: Pupils are round and equally reacting to light. EOMI. No scleral icterus. No conjunctival pallor. Normocephalic, atraumatic. No pharyngeal erythema. No thyromegaly. CARDIOVASCULAR: S1 and S2 present. No murmurs, rubs, or gallops. PULMONARY: Rhonchus breath sounds bilaterally. No significant wheezing was appreciated. No crackles were appreciated. I did not hear any bronchophony or egophony on exam. ABDOMEN: Minimal epigastric abdominal tenderness which is subjective in nature. No rebound or rigidity. MUSCULOSKELETAL: No joint swelling or deformity. EXTREMITIES: No cyanosis, clubbing, or pedal edema. NEUROLOGICAL: Gross neurological examination did not reveal any focal deficits. SKIN: No rashes. ASSESSMENT AND PLAN: 1. Acute hypoxic respiratory failure secondary to pulmonary edema from missing hemodialysis, nephrology will be consulted and my suspicion is low for pneumonia until I get the dedicated x-ray and review the images, I will go ahead and continue antibiotics, probably they can be discontinued tomorrow. 2. Nausea, vomiting and epigastric abdominal pain. Patient does have history of gastroparesis and gastritis for which we will go ahead and continue with Prilosec, conservative management and symptomatic treatment. 3. Chronic pain syndrome. 4. Type 1 diabetes mellitus not in diabetic ketoacidosis. Continue with insulin regimen with Lantus and premeal insulin as long as he can tolerate the diet. 5. End stage renal disease, hemodialysis dependent. 6. Diabetic nephropathy secondary to ( ); end stage renal disease is secondary to diabetic nephropathy. 7. Hypertension, uncontrolled. The patient will be resumed on his home medications and see how he does. The patient did not take his medications today morning. 8. Diabetic neuropathy, retinopathy and nephropathy. 9. Cerebrovascular accident. 10. Hyperlipidemia. PLAN: As mentioned above. Patient will be initiated back on hemodialysis. Patient will get hemodialysis tonight.
--- NOTE | 2016-06-13 19:26 | XR ---
EXAMINATION TYPE: XR chest 2V DATE OF EXAM: 06/13/2016 5:25 PM COMPARISON: 06/13/2016 earlier in day INDICATION: Nausea vomiting TECHNIQUE: Single frontal view of the chest is obtained. FINDINGS: The heart size is enlarged. The pulmonary vasculature is prominent. Mild diffuse increased lung markings are present. This is improved from prior study. IMPRESSION: 1. Resolving congestive heart failure.
[2016-06-13] MEDS ORDERED: CINACALCET 30 MG TAB PO SCH (21:00)
[2016-06-13] MEDS ORDERED: CARVEDILOL 12.5 MG TAB PO SCH (21:00)
[2016-06-13 21:08] LABS: Glucose,Whole Blood 80 mg/dL (75-99)
[2016-06-13] MEDS: IPRATROPIUM-ALBUTEROL 3 ML NEB INHALATION SCH (21:09)
[2016-06-13] MEDS: INSULIN GLARGINE 100 UNIT/ML 10 ML VIAL SQ SCH ×2 (21:47→21:53)
[2016-06-13] MEDS ORDERED: GELATIN SPONGE,ABSORB (SMALL) 1 EACH SPONGE ONE (23:50)
[2016-06-14] MEDS ORDERED: PIPERACILLIN-TAZOBACTAM 3.375 GM in DEXTROSE/WATER 1 50ML.BAG IVPB SCH
[2016-06-14] MEDS: HYDROmorphone 1 MG/ML 1 ML SYRINGE IVP PRN (00:09)
[2016-06-14] MEDS: ONDANSETRON 4 MG/2 ML VIAL IVP PRN (00:11)
[2016-06-14 00:46] VITALS: BP 143/74; PULSE 60; RESP 18; TEMP 97.2
[2016-06-14] MEDS: diphenhydrAMINE 50 MG/ML 1 ML VIAL IVP PRN (01:03)
[2016-06-14] MEDS ORDERED: PANTOPRAZOLE 40 MG TABLET PO SCH (07:30)
[2016-06-14] MEDS ORDERED: FOLIC ACID-VIT B COMPLEX-VIT C 1 CAP PO SCH (09:00)
[2016-06-14] MEDS ORDERED: ENOXAPARIN 30 MG/0.3 ML SYRINGE SQ SCH (09:00)
[2016-06-14] MEDS ORDERED: amLODIPine 10 MG TAB PO SCH (09:00)
[2016-06-14] MEDS ORDERED: LEVOFLOXACIN 750MG-D5W PMX 750 MG in DEXTROSE/WATER 1 150ML.BAG IVPB SCH (10:30)
[2016-06-15] MEDS ORDERED: LEVOFLOXACIN 500MG-D5W PMX 500 MG in DEXTROSE/WATER 1 100ML.BAG IVPB SCH (08:00)
--- NOTE | 2016-06-15 11:32 | DS ---
DATE OF ADMISSION: 06/13/2016 DATE OF DISCHARGE: 06/14/2016 The patient left AGAINST MEDICAL ADVICE earlier today morning.
== END 2016-06-14 04:30 | disposition left against medical advice (07) | DRG 291 ==
LOC: EC 08:38 → 4MS4W 10:30
PROVIDERS: ADMIT Hospitalist; ATTEND Hospitalist
PROC: 5A1D00Z (ICD-10-PCS; principal; 2016-06-13)
DX: I13.2 Hypertensive heart and chronic kidney disease with heart failure and with stage 5 chronic kidney disease, or end stage renal disease (principal); J96.01 Acute respiratory failure with hypoxia; K31.84 Gastroparesis; J18.9 Pneumonia, unspecified organism; N18.6 End stage renal disease; I50.9 Heart failure, unspecified; Z91.15 Patient's noncompliance with renal dialysis; E10.21 Type 1 diabetes mellitus with diabetic nephropathy; E10.43 Type 1 diabetes mellitus with diabetic autonomic (poly)neuropathy; E10.22 Type 1 diabetes mellitus with diabetic chronic kidney disease; E10.319 Type 1 diabetes mellitus with unspecified diabetic retinopathy without macular edema; E10.65 Type 1 diabetes mellitus with hyperglycemia; F12.90 Cannabis use, unspecified, uncomplicated; G89.4 Chronic pain syndrome; E78.5 Hyperlipidemia, unspecified; K21.9 Gastro-esophageal reflux disease without esophagitis; E03.9 Hypothyroidism, unspecified; G40.909 Epilepsy, unspecified, not intractable, without status epilepticus; Z86.59 Personal history of other mental and behavioral disorders; Z99.2 Dependence on renal dialysis; Z87.891 Personal history of nicotine dependence; Z90.49 Acquired absence of other specified parts of digestive tract; Z79.4 Long term (current) use of insulin; Z79.899 Other long term (current) drug therapy; Z83.3 Family history of diabetes mellitus
CPT/HCPCS: 36415; 71020; 80053; 82009; 82550; 82553; 83036; 83605; 83735; 83880; 84100; 84484; 85025; 87040; 90935; 93005; 94760

== ENCOUNTER 2016-06-24 12:34 | Inpatient (IN) | payer MEDICARE, OTHER ==
[2016-06-24] MEDS ORDERED: hydrALAZINE HCL 20 MG/ML 1 ML VIAL IVP STA ×2 (12:52→15:21)
--- NOTE | 2016-06-24 12:55 | ED ---
General Adult HPI - General Chief complaint: Shortness of Breath Stated complaint: Difficulty Breathing Time Seen by Provider: 06/24/16 12:40 Source: patient, family, RN notes reviewed Mode of arrival: wheelchair Limitations: no limitations - History of Present Illness Initial comments: This is a 40-year-old male whose past medical history significant for hypertension diabetes and hemodialysis. Patient was supposed to be dialyzed tomorrow. Patient states she comes in today because his breathing is become more difficult over the last 2 days. Patient states she has not taken any more fluid in that normal. Patient denies any chest pain or palpitations. Patient states he hasn't had a fever patient denies a cough denies any chills. Patient states he occasionally has some abdominal pain though this is Typical for him. Patient denies any headache patient denies numbness or weakness. Patient states he is nauseated and is vomiting. Patient denies any diarrhea. - Related Data Home Medications Medication Instructions Recorded Confirmed LORazepam [Ativan] 1 mg PO DAILY PRN 06/06/14 06/24/16 Carvedilol [Coreg] 25 mg PO BID 07/10/14 06/24/16 amLODIPine BESYLATE [Amlodipine 10 mg PO DAILY 06/24/15 06/24/16 Besylate] Cinacalcet HCl [Sensipar] 60 mg PO HS 10/31/15 06/24/16 Hydrocodone/Acetaminophen 0.5 tab PO DAILY PRN 12/11/15 06/24/16 [Hydrocodon-Acetaminophn 10-325] Ondansetron Odt [Zofran ODT] 4 mg PO BID PRN 12/11/15 06/24/16 Insulin Glargine [Lantus] 12 unit SQ HS 01/12/16 06/24/16 Folic Acid-Vit B Complex-Vit C 1 cap PO DAILY 01/25/16 06/24/16 [Nephrocaps] B Complex & C No.20/Folic Acid 1 mg PO DAILY 02/20/16 06/24/16 [Triphrocaps Softgel] Cyclobenzaprine [Flexeril] 10 mg PO TID PRN 02/20/16 06/24/16 INSULIN LISPRO (humaLOG) [humaLOG See Protocol SQ AC-TID 02/20/16 06/24/16 (formulary)] Omeprazole [PriLOSEC] 20 mg PO DAILY 02/20/16 06/24/16 HYDROmorphone [Dilaudid] 2 mg PO DAILY PRN 03/28/16 06/24/16 hydrALAZINE HCL [Apresoline] 100 mg PO QID 03/28/16 06/24/16 Lisinopril [Lisinopril] 5 mg PO TID-W/MEALS 06/13/16 06/24/16 Previous Rx's Medication Instructions Recorded cloNIDine HCL [Catapres] 0.2 mg PO TID tab 02/20/16 Allergies Allergy/AdvReac Type Severity Reaction Status Date / Time codeine Allergy Itching Verified 06/24/16 13:39 metoclopramide HCl AdvReac MUSCLE Verified 06/24/16 13:39 [From Reglan] SPASMS morphine AdvReac INCREASES Verified 06/24/16 13:39 PAIN Review of Systems ROS Statement: Those systems with pertinent positive or pertinent negative responses have been documented in the HPI. ROS Other: All systems not noted in ROS Statement are negative. Past Medical History Past Medical History: Chest Pain / Angina, Heart Failure, CVA/TIA, Diabetes Mellitus, Dialysis, Eye Disorder, GERD/Reflux, Hypertension, Renal Disease, Seizure Disorder, Thyroid Disorder Additional Past Medical History / Comment(s): Chronic renal failure stage IV, hemodialysis M/W/FR -last done 2 days ago, past peritoneal dialysis with peritonitis, gastroparesis, cyclic vomiting, chronic abdominal pain, pancreatitis, IDDM type I brittle, heart murmur, heat stroke-no residual, diabetic retinopathy bilaterally, retinal detachment with surgery, hypothyroid, hiatal hernia, sinusitis, bronchitis, chronic back pain, anemia, last seizure in 2015. History of Any Multi-Drug Resistant Organisms: None Reported Past Surgical History: Cholecystectomy, Heart Catheterization, Hernia Repair Additional Past Surgical History / Comment(s): bilateral retinal reattachment sx , hemodialysis catheter in Feb 2013, lt arm fistual, L inguinal hernia, 2009 cardiac cath. Past Anesthesia/Blood Transfusion Reactions: No Reported Reaction Past Psychological History: Anxiety, Depression Additional Psychological History / Comment(s): Pt has his mother living with him. He uses no assistive device. He drives. Smoking Status: Former smoker Past Alcohol Use History: None Reported Additional Past Alcohol Use History / Comment(s): STARTED SMOKING AT AGE 18 SMOKED SOCIALLY AND QUIT 1998 Past Drug Use History: None Reported Additional Drug Use History / Comment(s): PAST medical Marijuana use in high school. - Past Family History Father History Unknown: Yes Mother History Unknown: Yes Family Medical History: COPD Additional Family Medical History / Comment(s): Mother has never smoked. Mother' s brother had diabetes and multiple sclerosis. Brother(s) Family Medical History: Diabetes Mellitus Additional Family Medical History / Comment(s): multiple sclerosis General Exam - General Exam Comments Initial Comments: GENERAL: Patient is well-developed and well-nourished. Patient is nontoxic and well- hydrated and is in moderate distress. ENT: Neck is soft and supple. No significant lymphadenopathy is noted. Oropharynx is clear. Dry mucous membranes. Neck has full range of motion without eliciting any pain. EYES: The sclera were anicteric and conjunctiva were pink and moist. Extraocular movements were intact and pupils were equal round and reactive to light. Eyelids were unremarkable. PULMONARY: Unlabored respirations. Good breath sounds bilaterally. Patient has crackles in the bases CARDIOVASCULAR: There is a regular rate and rhythm without any murmurs gallops or rubs. ABDOMEN: Soft and nontender with normal bowel sounds. No palpable organomegaly was noted. There is no palpable pulsatile mass. SKIN: Skin is clear with no lesions or rashes and otherwise unremarkable. NEUROLOGIC: Patient is alert and oriented x3. Cranial nerves II through XII are grossly intact. Motor and sensory are also intact. Normal speech, volume and content. Symmetrical smile. MUSCULOSKELETAL: Normal extremities with adequate strength and full range of motion. Bilateral pedal edema LYMPHATICS: No significant lymphadenopathy is noted PSYCHIATRIC: Normal psychiatric evaluation. Normal interpersonal interactions appears functionally intact in deals appropriately with others. No signs of depression. Mildly anxious Limitations: no limitations Course Vital Signs 06/24/16 06/24/16 06/24/16 12:37 13:45 14:00 Temperature 97.5 F L Pulse Rate 86 88 90 Respiratory 24 22 22 Rate Blood Pressure 221/105 234/115 230/113 O2 Sat by Pulse 94 L 100 97 Oximetry 06/24/16 06/24/16 06/24/16 14:12 14:22 14:32 Temperature Pulse Rate 90 90 92 Respiratory 22 22 22 Rate Blood Pressure 220/107 218/107 221/111 O2 Sat by Pulse 97 100 100 Oximetry 06/24/16 06/24/16 06/24/16 14:42 14:52 15:19 Temperature Pulse Rate 96 98 105 H Respiratory 22 22 22 Rate Blood Pressure 224/117 208/98 231/116 O2 Sat by Pulse 96 99 100 Oximetry 06/24/16 15:31 Temperature Pulse Rate 99 Respiratory 20 Rate Blood Pressure 198/101 O2 Sat by Pulse 93 L Oximetry Medical Decision Making - Medical Decision Making EKG shows normal sinus rhythm at 89 bpm NH interval is 142 QRS is 86 QT interval 390 QTC is 474. Patient has some T-wave inversions in leads 1 and aVL and V6 as well. Compared to an old EKG these T-wave inversions are unchanged chest x-ray shows Patient's x-ray shows pulmonary edema. Patient's blood sugar was elevated so I started patient on the insulin drip after I gave the patient and some bolus. I gave the patient multiple hypertensive antihypertensive meds because of the high blood pressure. I spoke with Dr. Balbuena I admitted the patient I consult nephrology. I wrote admitting orders. - Lab Data Result diagrams: 06/24/16 13:45 06/24/16 13:45 Lab Results 06/24/16 06/24/16 06/24/16 Range/Units 13:45 13:45 13:45 WBC 12.3 H (3.8-10.6) k/uL RBC 3.57 L (4.30-5.90) m/uL Hgb 10.3 L (13.0-17.5) gm/dL Hct 34.9 L (39.0-53.0) % MCV 97.8 (80.0-100.0) fL MCH 28.9 (25.0-35.0) pg MCHC 29.6 L (31.0-37.0) g/dL RDW 18.8 H (11.5-15.5) % Plt Count 112 L (150-450) k/uL Neutrophils % 91 % Lymphocytes % 4 % Monocytes % 2 % Eosinophils % 2 % Basophils % 1 % Neutrophils # 11.1 H (1.3-7.7) k/uL Lymphocytes # 0.5 L (1.0-4.8) k/uL Monocytes # 0.3 (0-1.0) k/uL Eosinophils # 0.2 (0-0.7) k/uL Basophils # 0.1 (0-0.2) k/uL Hypochromasia Moderate Anisocytosis Slight Macrocytosis Slight PT (9.0-12.0) sec INR (<1.1) APTT (22.0-30.0) sec Sodium 138 (137-145) mmol/L Potassium 4.0 (3.5-5.1) mmol/L Chloride 95 L (98-107) mmol/L Carbon Dioxide 27 (22-30) mmol/L Anion Gap 16 mmol/L BUN 44 H (9-20) mg/dL Creatinine 6.95 H* (0.66-1.25) mg/dL Est GFR (MDRD) Af Amer 11 (>60 ml/min/1.73 sqM) Est GFR (MDRD) Non-Af 9 (>60 ml/min/1.73 sqM) Glucose 506 H* (74-99) mg/dL POC Glucose (mg/dL) (75-99) mg/dL POC Glu Automatic Outsole Cutter ID Calcium 8.5 (8.4-10.2) mg/dL Total Bilirubin 1.3 (0.2-1.3) mg/dL AST 31 (17-59) U/L ALT 33 (21-72) U/L Alkaline Phosphatase 260 H (38-126) U/L Total Creatine Kinase 111 (55-170) U/L CK-MB (CK-2) 3.3 H* (0.0-2.4) ng/mL CK-MB (CK-2) Rel Index 3.0 Troponin I <0.012 (0.000-0.034) ng/mL NT-Pro-B Natriuret Pep pg/mL Total Protein 7.2 (6.3-8.2) g/dL Albumin 4.0 (3.5-5.0) g/dL Amylase (30-110) U/L Lipase (23-300) U/L Acetone, Qual Negative (Negative) 06/24/16 06/24/16 06/24/16 Range/Units 13:45 13:45 13:45 WBC (3.8-10.6) k/uL RBC (4.30-5.90) m/uL Hgb (13.0-17.5) gm/dL Hct (39.0-53.0) % MCV (80.0-100.0) fL MCH (25.0-35.0) pg MCHC (31.0-37.0) g/dL RDW (11.5-15.5) % Plt Count (150-450) k/uL Neutrophils % % Lymphocytes % % Monocytes % % Eosinophils % % Basophils % % Neutrophils # (1.3-7.7) k/uL Lymphocytes # (1.0-4.8) k/uL Monocytes # (0-1.0) k/uL Eosinophils # (0-0.7) k/uL Basophils # (0-0.2) k/uL Hypochromasia Anisocytosis Macrocytosis PT 11.4 (9.0-12.0) sec INR 1.1 (<1.1) APTT 27.7 (22.0-30.0) sec Sodium (137-145) mmol/L Potassium (3.5-5.1) mmol/L Chloride (98-107) mmol/L Carbon Dioxide (22-30) mmol/L Anion Gap mmol/L BUN (9-20) mg/dL Creatinine (0.66-1.25) mg/dL Est GFR (MDRD) Af Amer (>60 ml/min/1.73 sqM) Est GFR (MDRD) Non-Af (>60 ml/min/1.73 sqM) Glucose (74-99) mg/dL POC Glucose (mg/dL) (75-99) mg/dL POC Glu Automatic Outsole Cutter ID Calcium (8.4-10.2) mg/dL Total Bilirubin (0.2-1.3) mg/dL AST (17-59) U/L ALT (21-72) U/L Alkaline Phosphatase (38-126) U/L Total Creatine Kinase (55-170) U/L CK-MB (CK-2) (0.0-2.4) ng/mL CK-MB (CK-2) Rel Index Troponin I (0.000-0.034) ng/mL NT-Pro-B Natriuret Pep 37506 pg/mL Total Protein (6.3-8.2) g/dL Albumin (3.5-5.0) g/dL Amylase 44 (30-110) U/L Lipase 101 (23-300) U/L Acetone, Qual (Negative) 06/24/16 Range/Units 15:17 WBC (3.8-10.6) k/uL RBC (4.30-5.90) m/uL Hgb (13.0-17.5) gm/dL Hct (39.0-53.0) % MCV (80.0-100.0) fL MCH (25.0-35.0) pg MCHC (31.0-37.0) g/dL RDW (11.5-15.5) % Plt Count (150-450) k/uL Neutrophils % % Lymphocytes % % Monocytes % % Eosinophils % % Basophils % % Neutrophils # (1.3-7.7) k/uL Lymphocytes # (1.0-4.8) k/uL Monocytes # (0-1.0) k/uL Eosinophils # (0-0.7) k/uL Basophils # (0-0.2) k/uL Hypochromasia Anisocytosis Macrocytosis PT (9.0-12.0) sec INR (<1.1) APTT (22.0-30.0) sec Sodium (137-145) mmol/L Potassium (3.5-5.1) mmol/L Chloride (98-107) mmol/L Carbon Dioxide (22-30) mmol/L Anion Gap mmol/L BUN (9-20) mg/dL Creatinine (0.66-1.25) mg/dL Est GFR (MDRD) Af Amer (>60 ml/min/1.73 sqM) Est GFR (MDRD) Non-Af (>60 ml/min/1.73 sqM) Glucose (74-99) mg/dL POC Glucose (mg/dL) 420 H (75-99) mg/dL POC Glu Automatic Outsole Cutter ID Petitpren, Ritika Calcium (8.4-10.2) mg/dL Total Bilirubin (0.2-1.3) mg/dL AST (17-59) U/L ALT (21-72) U/L Alkaline Phosphatase (38-126) U/L Total Creatine Kinase (55-170) U/L CK-MB (CK-2) (0.0-2.4) ng/mL CK-MB (CK-2) Rel Index Troponin I (0.000-0.034) ng/mL NT-Pro-B Natriuret Pep pg/mL Total Protein (6.3-8.2) g/dL Albumin (3.5-5.0) g/dL Amylase (30-110) U/L Lipase (23-300) U/L Acetone, Qual (Negative) Critical Care Time Critical Care Time: Yes Total Critical Care Time: 35 Disposition Clinical Impression: Hypertensive urgency, Hyperglycemia, Pulmonary edema, acute Disposition: ADMITTED IP TO THIS HOSP Referrals: Kala Onofre MD [Primary Care Provider] - 1-2 days Time of Disposition: 15:56
[2016-06-24] MEDS ORDERED: ONDANSETRON 4 MG/2 ML VIAL IVP STA (13:28)
[2016-06-24] MEDS ORDERED: INSULIN LISPRO (humaLOG) 300 UNIT/3 ML VIAL SQ ONE (13:35)
[2016-06-24 14:12] LABS: Anisocytosis Slight; Basophils # (A) 0.1 k/uL (0-0.2); Basophils % (A) 1 %; CH 29.8; CHCM 30.6; Eosinophils # (A) 0.2 k/uL (0-0.7); Eosinophils % (A) 2 %; HCT 34.9 % (39.0-53.0); HGB 10.3 gm/dL (13.0-17.5); Hypochromasia Moderate; Luc # (Auto) 0.08; Luc % (Auto) 1; Lymphocytes # (A) 0.5 k/uL (1.0-4.8); Lymphocytes % (A) 4 %; MCH 28.9 pg (25.0-35.0); MCHC 29.6 g/dL (31.0-37.0); MCV 97.8 fL (80.0-100.0); Macrocytosis Slight; Mean Platelet Volume 8.8; Monocytes # (A) 0.3 k/uL (0-1.0); Monocytes % (A) 2 %; Neutrophils # (A) 11.1 k/uL (1.3-7.7); Neutrophils % (A) 91 %; RBC 3.57 m/uL (4.30-5.90); RDW 18.8 % (11.5-15.5); WBC 12.3 k/uL (3.8-10.6); WBC (Perox) 12.29
[2016-06-24 14:13] LABS: INR 1.1 (<1.1); Partial Thromboplastin Time 27.7 sec (22.0-30.0); Prothrombin Time 11.4 sec (9.0-12.0)
[2016-06-24 14:15] LABS: ALT 33 U/L (21-72); AST 31 U/L (17-59); Alkaline Phosphatase 260 U/L (38-126); Anion Gap 16 mmol/L; Blood Urea Nitrogen 44 mg/dL (9-20); Calcium 8.5 mg/dL (8.4-10.2); Carbon Dioxide 27 mmol/L (22-30); Chloride 95 mmol/L (98-107); Sodium 138 mmol/L (137-145); Total Bilirubin 1.3 mg/dL (0.2-1.3); Total Protein 7.2 g/dL (6.3-8.2)
[2016-06-24 14:22] LABS: Non-African American GFR(MDRD) 9 (>60 ml/min/1.73 sqM)
[2016-06-24 14:24] LABS: Glucose 506 mg/dL (74-99)
[2016-06-24] MEDS ORDERED: INSULIN REGULAR 100 UNIT/ML VIAL IV ONE (14:24)
[2016-06-24] MEDS ORDERED: LORazepam 2 MG/ML SYRINGE IV STA (14:29)
[2016-06-24 14:32] LABS: Creatine Kinase 111 U/L (55-170)
[2016-06-24] MEDS: ENALAPRILAT 1.25 MG/ML 1 ML VIAL IVP STA ×2 (14:38→17:24)
[2016-06-24 14:44] LABS: Troponin I <0.012 ng/mL (0.000-0.034)
[2016-06-24 14:54] LABS: Amylase 44 U/L (30-110)
[2016-06-24 14:58] LABS: Creatine Kinase MB 3.3 ng/mL (0.0-2.4)
[2016-06-24] MEDS ORDERED: INSULIN REGULAR 100 UNIT in SODIUM CHLORIDE 0.9% 100 ML IV ONE (15:00)
[2016-06-24 15:18] LABS: Glucose,Whole Blood 420 mg/dL (75-99)
[2016-06-24] MEDS ORDERED: HYDROmorphone 1 MG/ML 1 ML SYRINGE IVP STA ×2 (15:21→16:52)
--- NOTE | 2016-06-24 15:35 | XR ---
EXAMINATION TYPE: XR chest 2V DATE OF EXAM: 06/24/2016 3:27 PM COMPARISON: Prior chest x-ray 13 June 2016 HISTORY: Difficulty breathing Findings: Interstitium is again increased, bilateral pulmonary edema changes are present, the heart i s markedly enlarged. No pneumothorax or pleural effusion. TECHNIQUE: Frontal and lateral views of the chest are obtained. IMPRESSION: Correlate for congestive heart failure, pulmonary edema
[2016-06-24 16:04] LABS: Glucose,Whole Blood 306 mg/dL (75-99)
[2016-06-24 16:57] LABS: Glucose,Whole Blood 222 mg/dL (75-99)
[2016-06-24] MEDS: INSULIN LISPRO (humaLOG) 300 UNIT/3 ML VIAL SQ SCH ×2 (18:55→20:40)
[2016-06-24] MEDS: NITROGLYCERIN OINT 1 INCH/GM PACKET TOPICAL SCH (18:58)
[2016-06-24 18:59] VITALS: BMI 21.9
[2016-06-24] MEDS ORDERED: GELATIN SPONGE,ABSORB (SMALL) 1 EACH SPONGE ONE (20:00)
[2016-06-24 20:33] LABS: Glucose,Whole Blood 66 mg/dL (75-99)
[2016-06-24] MEDS ORDERED: DEXTROSE 50%-WATER 50 ML SYRINGE IVP ONE (20:35)
[2016-06-24] MEDS ORDERED: INSULIN GLARGINE 100 UNIT/ML 10 ML VIAL SQ SCH ×2 (21:00→21:15)
[2016-06-24] MEDS ORDERED: HYDROmorphone 2 MG TAB PO PRN (21:15)
[2016-06-24] MEDS ORDERED: LORazepam 1 MG TAB PO PRN (21:15)
[2016-06-24] MEDS ORDERED: CYCLOBENZAPRINE 10 MG TAB PO PRN (21:15)
[2016-06-24] MEDS ORDERED: HYDROcodone/APAP 10-325MG 1 EACH TAB PO PRN (21:15)
[2016-06-24] MEDS ORDERED: CINACALCET 30 MG TAB PO SCH (21:30)
[2016-06-24] MEDS: CARVEDILOL 12.5 MG TAB PO SCH (22:26)
[2016-06-24] MEDS: PANTOPRAZOLE 40 MG/10 ML VIAL IVP SCH (22:27)
[2016-06-24] MEDS: hydrALAZINE HCL 50 MG TAB PO SCH (22:27)
[2016-06-24] MEDS: cloNIDine HCL 0.2 MG TAB PO SCH (22:27)
[2016-06-24] MEDS: ONDANSETRON 4 MG/2 ML VIAL IVP PRN (23:07)
[2016-06-24] MEDS: diphenhydrAMINE 25 MG CAP PO PRN (23:07)
[2016-06-25] MEDS: NITROGLYCERIN OINT 1 INCH/GM PACKET TOPICAL SCH ×4 (00:45→17:30)
[2016-06-25] MEDS: HYDROmorphone 1 MG/ML 1 ML SYRINGE IVP PRN ×4 (01:10→17:39)
[2016-06-25 01:34] VITALS: RESP 18
[2016-06-25] MEDS ORDERED: LABETALOL 5 MG/ML VIAL MDV IVP PRN (04:22)
[2016-06-25] MEDS: CARVEDILOL 12.5 MG TAB PO SCH ×2 (06:38→17:35)
[2016-06-25] MEDS: ONDANSETRON 4 MG/2 ML VIAL IVP PRN ×2 (06:38→17:40)
[2016-06-25] MEDS: INSULIN LISPRO (humaLOG) 300 UNIT/3 ML VIAL SQ SCH ×3 (06:48→18:00)
[2016-06-25 06:50] LABS: Glucose,Whole Blood 166 mg/dL (75-99)
[2016-06-25] MEDS: PANTOPRAZOLE 40 MG/10 ML VIAL IVP SCH (08:15)
[2016-06-25] MEDS: hydrALAZINE HCL 50 MG TAB PO SCH ×3 (08:15→17:34)
[2016-06-25] MEDS: cloNIDine HCL 0.2 MG TAB PO SCH ×2 (08:16→15:36)
[2016-06-25 08:27] LABS: Anisocytosis Slight; CH 29.8; CHCM 31.1; HDW 2.75; HGB 9.8 gm/dL (13.0-17.5); Hypochromasia Moderate; MCH 30.5 pg (25.0-35.0); MCHC 31.6 g/dL (31.0-37.0); MCV 96.5 fL (80.0-100.0); Macrocytosis Slight; Mean Platelet Volume 8.2; RBC 3.21 m/uL (4.30-5.90); RDW 18.5 % (11.5-15.5); WBC 8.6 k/uL (3.8-10.6)
[2016-06-25 08:37] LABS: Calcium 8.4 mg/dL (8.4-10.2); Potassium 3.9 mmol/L (3.5-5.1)
[2016-06-25] MEDS ORDERED: NON-FORMULARY DRUG (Omeprazole 20 MG) PO SCH (09:00)
[2016-06-25] MEDS ORDERED: amLODIPine 10 MG TAB PO SCH (09:00)
[2016-06-25] MEDS ORDERED: FOLIC ACID-VIT B COMPLEX-VIT C 1 CAP PO SCH ×2 (09:00)
[2016-06-25 10:55] LABS: Hemoglobin A1C 7.6 % (4.2-6.1)
[2016-06-25 11:26] LABS: Glucose,Whole Blood 254 mg/dL (75-99)
[2016-06-25] MEDS: diphenhydrAMINE 25 MG CAP PO PRN (12:08)
--- NOTE | 2016-06-25 12:21 | CONS ---
DATE OF CONSULTATION: REASON FOR CONSULTATION: End-stage renal disease. HISTORY OF PRESENT ILLNESS: Patient is a 40-year-old white male with history of end-stage renal disease on hemodialysis on a Saturday, Saturday, Saturday schedule. Patient was admitted to the hospital yesterday with complaints of shortness of breath. He was dialyzed last night with UF of about 3 L. Patient states he is feeling better. He was also having abdominal pain. Some nausea and vomiting secondary to his gastroparesis. Blood pressure was significantly elevated in the 200 range and it is currently improved. Patient is actually asking to go home after dialysis today. He is scheduled for routine treatment today. PAST MEDICAL HISTORY: End-stage renal disease, type 1 diabetes, history of CVA/TIA, diabetic retinopathy, hypertension, seizure disorder, gastroparesis, hypothyroidism, hiatal hernia, chronic sinusitis, retinal detachment. PAST SURGICAL HISTORY: Cholecystectomy, cardiac catheterization, hernia repair, PD catheter placement and removal, left arm AV fistula, retinal surgeries. SOCIAL HISTORY: Negative for current drug abuse. Patient has a prior history of smoking. He is an ex-smoker. Consumes marijuana occasionally. No alcohol abuse. Medications at home prior to admission included Ativan, Coreg, amlodipine, Sensipar, Zofran, Flexeril, insulin, Dilaudid, hydralazine, lisinopril, clonidine. Allergies include REGLAN, MORPHINE and CODEINE. REVIEW OF SYSTEMS: As per HPI, other systems negative. On examination, the patient is comfortable. Blood pressure is currently 153/81, heart rate 72 per minute. He is afebrile. EXAMINATION OF THE HEART: S1 and S2. EXAMINATION OF THE LUNGS: Bilateral breath sounds are heard. ABDOMEN: Soft, nontender. Examination of lower extremities shows trace edema bilaterally. COMPUTER LANGUAGE CODER examination is grossly intact. Labs show sodium of 141, potassium 3.9. Hemoglobin 9.8 g/dL. ASSESSMENT: 1. End-stage renal disease on hemodialysis on a Saturday, Saturday, Saturday schedule. Patient is scheduled for hemodialysis today. We will plan for another 2 to 3 L as tolerated today. 2. Fluid overload, status post dialysis yesterday. Patient will be dialyzed again today. 3. Hypertension, partly volume sensitive, currently improved. 4. Diabetic gastroparesis. PLAN: Repeat hemodialysis today. The patient possibly could be discharged after dialysis if he is able to tolerate oral intake. He is advised to make sure he comes for his treatment on Saturday and he was also advised again fluid abuse. Thank you for this consultation. Will continue to follow the patient with you during his hospitalization.
[2016-06-25] MEDS: LISINOPRIL 5 MG TAB PO SCH ×2 (15:37→17:34)
--- NOTE | 2016-06-25 16:27 | HP ---
DATE OF ADMISSION: The patient is a 40-year-old who is well known to me from his multiple admissions. Patient comes in with severe shortness of breath, found to be hypoxic with saturations going down to 60. Patient is found to have severe pulmonary edema. Patient did have orthopnea, PND. Patient is compliant with his diet. Patient did not miss any dialysis but patient says over the weekend he was partying and did drink a lot of pop, which he believes may have caused it. Although patient is found to be hypertensive with highly elevated blood pressures with systolics in the 200s and diastolics in 120s. Patient may have even have flash pulmonary edema from hypertensive emergency. Patient has hemodialysis, end-stage renal disease, type 1 diabetic. Patient is off IV insulin with anion gap of 17 now, part of which is secondary to BUN and creatinine. Acetone negative in the urine. Highly elevated blood sugars. Initially I was told patient will be started on IV insulin; later it was switched to Lantus/Aspart combination and patient's blood sugars seem to be doing fairly with the present regimen. REVIEW OF SYSTEMS: CONSTITUTIONAL: No fever, no malaise, no fatigue. HEENT: No recent visual problems or hearing problems. Denied any sore throat. CARDIOVASCULAR: No chest pain, orthopnea, PND, no palpitations, no syncope. PULMONARY: As described in HPI. GASTROINTESTINAL: No diarrhea, no nausea, no vomiting, no abdominal pain. Normoactive bowel sounds. NEUROLOGICAL: No headaches, no weakness, no numbness. HEMATOLOGICAL: Denies any bleeding or petechiae. GENITOURINARY: Denies any burning micturition, frequency, or urgency. MUSCULOSKELETAL/RHEUMATOLOGICAL: Denies any joint pain, swelling, or any muscle pain. ENDOCRINE: Denies any polyuria or polydipsia. The rest of the 14 point review of systems is negative. Home medications include: 1. Lorazepam. 2. Coreg. 3. Amlodipine. 4. Cinacalcet. 5. Hydrocodone/acetaminophen. 6. Ondansetron. 7. Glargine. 8. Cyclobenzaprine. 9. Omeprazole. 10. Hydromorphone. 11. Hydralazine. 12. Lisinopril. 13. Clonidine. ALLERGIES: 1. CODEINE. 2. METOCLOPRAMIDE. 3. MORPHINE. Past medical history is significant for: 1. CVA, TIA. 2. Diabetes mellitus. 3. End-stage renal disease; does not make much urine. 4. Gastroesophageal reflux disease. 5. Hypertension. 6. Seizure disorder. 7. Hypothyroidism. 8. Saturday, Saturday, Saturday hemodialysis. 9. Type 1 diabetes mellitus. 10. Anxiety. 11. Depression. SOCIAL HISTORY: Former smoker. Quit smoking in 1998. Denied any alcohol abuse. Present drug abuse. Used to use marijuana in his high school. FAMILY HISTORY: Mother had COPD, diabetes mellitus, multiple sclerosis. Brother had diabetes mellitus. PHYSICAL EXAMINATION: VITAL SIGNS: Temperature 99.5, pulse of 68, respiratory rate of 18. Blood pressure is 148/76. Saturating at 97% on room air. GENERAL: The patient is alert and oriented x3, not in any acute distress. Well developed, well nourished. Thin build. HEENT: Pupils are round and equally reacting to light. EOMI. No scleral icterus. No conjunctival pallor. Normocephalic, atraumatic. No pharyngeal erythema. No thyromegaly. CARDIOVASCULAR: S1 and S2 present. No murmurs, rubs, or gallops. PULMONARY: Bibasilar crackles were appreciated. Did not appreciate any significant JVD. ABDOMEN: Soft, nontender, nondistended, normoactive bowel sounds. No palpable organomegaly. MUSCULOSKELETAL: No joint swelling or deformity. EXTREMITIES: No cyanosis, clubbing, or pedal edema. NEUROLOGICAL: Gross neurological examination did not reveal any focal deficits. SKIN: No rashes. Laboratory data was reviewed. He has highly elevated BUN and creatinine; BUN of 44, creatinine of 6.95. WBC count was elevated; now has come down. ASSESSMENT AND PLAN: 1. Acute hypoxic respiratory failure secondary to pulmonary edema because of possibly flash pulmonary edema from hypertensive emergency along with noncompliance with dietary recommendations, as mentioned above. Three liters of fluid was removed yesterday. Nephrology is planning on removing 3 to 4 more liters of water today from dialysis. Patient may need dialysis tomorrow. Chest x-ray will be obtained for tomorrow. 2. Hypertensive emergency or accelerated hypertension, improved at this point of time. Blood pressure is fairly stable in the 150s. We do not want to go lower than that now, which can lead to stroke. 3. Chronic pain syndrome. 4. Type 1 diabetes mellitus, not in diabetic ketoacidosis. 5. End-stage renal disease, on hemodialysis. 6. Diabetic nephropathy. 7. Diabetic neuropathy. 8. Cerebrovascular accident in the past. 9. Hyperlipidemia. Will obtain kidney function testing, serum phosphorus tomorrow, and chest x-ray tomorrow.
[2016-06-25 16:40] LABS: Glucose,Whole Blood 156 mg/dL (75-99)
[2016-06-25 17:28] VITALS: BP 175/89; PULSE 71; TEMP 97.2
--- NOTE | 2016-07-10 10:22 | DS ---
DATE OF ADMISSION: 06/24/2016 DATE OF DISCHARGE: 06/25/2016 DATE OF SERVICE: 06/25/2016 Patient left AMA.
== END 2016-06-25 19:04 | disposition left against medical advice (07) | DRG 189 ==
LOC: EC 12:34 → 6SEL 15:59
PROVIDERS: ADMIT Internal Medicine; ATTEND Internal Medicine
PROC: 5A1D60Z (ICD-10-PCS; principal; 2016-06-24)
DX: J81.0 Acute pulmonary edema (principal); J96.01 Acute respiratory failure with hypoxia; J81.1 Chronic pulmonary edema; K31.84 Gastroparesis; E87.70 Fluid overload, unspecified; N18.6 End stage renal disease; I12.0 Hypertensive chronic kidney disease with stage 5 chronic kidney disease or end stage renal disease; E10.43 Type 1 diabetes mellitus with diabetic autonomic (poly)neuropathy; I16.1 Hypertensive emergency; G89.4 Chronic pain syndrome; E10.21 Type 1 diabetes mellitus with diabetic nephropathy; E03.9 Hypothyroidism, unspecified; E78.5 Hyperlipidemia, unspecified; E10.65 Type 1 diabetes mellitus with hyperglycemia; E10.319 Type 1 diabetes mellitus with unspecified diabetic retinopathy without macular edema; E10.22 Type 1 diabetes mellitus with diabetic chronic kidney disease; J32.9 Chronic sinusitis, unspecified; F41.9 Anxiety disorder, unspecified; D64.9 Anemia, unspecified; R01.1 Cardiac murmur, unspecified; M54.9 Dorsalgia, unspecified; K21.9 Gastro-esophageal reflux disease without esophagitis; F32.9 Major depressive disorder, single episode, unspecified; I16.0 Hypertensive urgency; K44.9 Diaphragmatic hernia without obstruction or gangrene; F12.90 Cannabis use, unspecified, uncomplicated; G40.909 Epilepsy, unspecified, not intractable, without status epilepticus; Z82.0 Family history of epilepsy and other diseases of the nervous system; Z82.5 Family history of asthma and other chronic lower respiratory diseases; Z83.3 Family history of diabetes mellitus; Z87.891 Personal history of nicotine dependence; Z88.5 Allergy status to narcotic agent; Z99.2 Dependence on renal dialysis; Z86.73 Personal history of transient ischemic attack (TIA), and cerebral infarction without residual deficits; Z79.4 Long term (current) use of insulin; Z86.79 Personal history of other diseases of the circulatory system; Z88.8 Allergy status to other drugs, medicaments and biological substances; Z87.19 Personal history of other diseases of the digestive system; Z86.19 Personal history of other infectious and parasitic diseases; Z87.09 Personal history of other diseases of the respiratory system; Z79.891 Long term (current) use of opiate analgesic; Z79.899 Other long term (current) drug therapy; Z53.21 Procedure and treatment not carried out due to patient leaving prior to being seen by health care provider; Z91.11 Patient's noncompliance with dietary regimen; Z90.49 Acquired absence of other specified parts of digestive tract; Z86.69 Personal history of other diseases of the nervous system and sense organs
CPT/HCPCS: 36415; 71020; 80048; 80053; 82009; 82150; 82550; 82553; 83036; 83690; 83880; 84484; 85025; 85027; 85610; 85730; 90935; 93005; 96374; 96375; 96376; 99291

== ENCOUNTER 2016-07-03 18:55 | Emergency (ER) | payer MEDICARE, OTHER ==
[2016-07-03 19:07] VITALS: RESP 18
[2016-07-03] MEDS ORDERED: SODIUM CHLORIDE 0.9% 2,000 ML IV STA (19:24)
[2016-07-03] MEDS ORDERED: HYDROmorphone 1 MG/ML 1 ML SYRINGE IVP STA (19:24)
[2016-07-03] MEDS ORDERED: cloNIDine HCL 0.2 MG TAB PO STA (19:29)
--- NOTE | 2016-07-03 19:29 | ED ---
Nausea/Vomiting/Diarrhea HPI - General Chief complaint: Nausea/Vomiting/Diarrhea Stated complaint: ABD PAIN Time Seen by Provider: 07/03/16 19:08 Source: patient, family, RN notes reviewed, old records reviewed Mode of arrival: EMS Limitations: no limitations - History of Present Illness Initial comments: This 32-year-old & emergency department with chief complaint of upper abdominal pain, nausea and vomiting started at 7 AM today. Patient was recently discharged from the hospital for diagnosis of acute hypoxic respiratory failure secondary to pulmonary edema. Patient has a past medical history significant for diabetes, chronic renal failure with dialysis and ileus. Patient states that his blood sugars have been elevated in the 300s. He reports that he has dialysis scheduled tomorrow. He does act emergency department with elevated blood pressure 200/110. Patient reports that he's continued to vomit all day today. She reports that he always had shortness of breath with pain. Denies significant cough or chest pain. - Related Data Home Medications Medication Instructions Recorded Confirmed LORazepam [Ativan] 1 mg PO DAILY PRN 06/06/14 06/24/16 Carvedilol [Coreg] 25 mg PO BID 07/10/14 06/24/16 amLODIPine BESYLATE [Amlodipine 10 mg PO DAILY 06/24/15 06/24/16 Besylate] Cinacalcet HCl [Sensipar] 60 mg PO HS 10/31/15 06/24/16 Hydrocodone/Acetaminophen 0.5 tab PO DAILY PRN 12/11/15 06/24/16 [Hydrocodon-Acetaminophn 10-325] Ondansetron Odt [Zofran ODT] 4 mg PO BID PRN 12/11/15 06/24/16 Insulin Glargine [Lantus] 12 unit SQ HS 01/12/16 06/24/16 Folic Acid-Vit B Complex-Vit C 1 cap PO DAILY 01/25/16 06/24/16 [Nephrocaps] B Complex & C No.20/Folic Acid 1 mg PO DAILY 02/20/16 06/24/16 [Triphrocaps Softgel] Cyclobenzaprine [Flexeril] 10 mg PO TID PRN 02/20/16 06/24/16 INSULIN LISPRO (humaLOG) [humaLOG See Protocol SQ AC-TID 02/20/16 06/24/16 (formulary)] Omeprazole [PriLOSEC] 20 mg PO DAILY 02/20/16 06/24/16 HYDROmorphone [Dilaudid] 2 mg PO DAILY PRN 03/28/16 06/24/16 hydrALAZINE HCL [Apresoline] 100 mg PO QID 03/28/16 06/24/16 Lisinopril [Lisinopril] 5 mg PO TID-W/MEALS 06/13/16 06/24/16 Previous Rx's Medication Instructions Recorded cloNIDine HCL [Catapres] 0.2 mg PO TID tab 02/20/16 Allergies Allergy/AdvReac Type Severity Reaction Status Date / Time codeine Allergy Itching Verified 07/03/16 20:11 metoclopramide HCl AdvReac MUSCLE Verified 07/03/16 20:11 [From Reglan] SPASMS morphine AdvReac INCREASES Verified 07/03/16 20:11 PAIN Review of Systems ROS Statement: Those systems with pertinent positive or pertinent negative responses have been documented in the HPI. ROS Other: All systems not noted in ROS Statement are negative. Past Medical History Past Medical History: Chest Pain / Angina, Heart Failure, CVA/TIA, Diabetes Mellitus, Dialysis, Eye Disorder, GERD/Reflux, Hypertension, Renal Disease, Seizure Disorder, Thyroid Disorder Additional Past Medical History / Comment(s): Chronic renal failure stage IV, hemodialysis M/W/FR -last done 2 days ago, past peritoneal dialysis with peritonitis, gastroparesis, cyclic vomiting, chronic abdominal pain, pancreatitis, IDDM type I brittle, heart murmur, heat stroke-no residual, diabetic retinopathy bilaterally, retinal detachment with surgery, hypothyroid, hiatal hernia, sinusitis, bronchitis, chronic back pain, anemia, last seizure in 2015. History of Any Multi-Drug Resistant Organisms: None Reported Past Surgical History: Cholecystectomy, Heart Catheterization, Hernia Repair Additional Past Surgical History / Comment(s): bilateral retinal reattachment sx , hemodialysis catheter in Feb 2013, lt arm fistual, L inguinal hernia, 2009 cardiac cath. Past Anesthesia/Blood Transfusion Reactions: No Reported Reaction Past Psychological History: Anxiety, Depression Additional Psychological History / Comment(s): Pt has his mother living with him. He uses no assistive device. He drives. Smoking Status: Never smoker Past Alcohol Use History: None Reported Additional Past Alcohol Use History / Comment(s): STARTED SMOKING AT AGE 18 SMOKED SOCIALLY AND QUIT 1998 Past Drug Use History: None Reported Additional Drug Use History / Comment(s): PAST medical Marijuana use in high school. - Past Family History Father History Unknown: Yes Mother History Unknown: Yes Family Medical History: COPD Additional Family Medical History / Comment(s): Mother has never smoked. Mother' s brother had diabetes and multiple sclerosis. Brother(s) Family Medical History: Diabetes Mellitus Additional Family Medical History / Comment(s): multiple sclerosis General Exam - General Exam Comments Initial Comments: This is a 40-year-old male. Patient does appear to be in significant discomfort. Patient is actively vomiting. Limitations: no limitations General appearance: alert, in no apparent distress Head exam: Present: atraumatic, normocephalic, normal inspection Eye exam: Present: normal appearance, PERRL, EOMI. Absent: scleral icterus, conjunctival injection, periorbital swelling ENT exam: Present: normal exam, mucous membranes moist Neck exam: Present: normal inspection. Absent: tenderness, meningismus, lymphadenopathy Respiratory exam: Present: normal lung sounds bilaterally. Absent: respiratory distress, wheezes, rales, rhonchi, stridor Cardiovascular Exam: Present: regular rate, normal rhythm, normal heart sounds. Absent: systolic murmur, diastolic murmur, rubs, gallop, clicks GI/Abdominal exam: Present: soft, tenderness (Chest significant right upper quadrant epigastric tenderness.), normal bowel sounds. Absent: distended, guarding, rebound, rigid Extremities exam: Present: normal inspection, full ROM, normal capillary refill. Absent: tenderness, pedal edema, joint swelling, calf tenderness Back exam: Present: normal inspection Neurological exam: Present: alert, oriented X3, CN II-XII intact Psychiatric exam: Present: normal affect, normal mood Course Vital Signs 07/03/16 07/03/16 19:04 20:33 Temperature 99.1 F Pulse Rate 92 89 Respiratory 18 18 Rate Blood Pressure 221/103 210/100 O2 Sat by Pulse 97 100 Oximetry Medical Decision Making - Medical Decision Making This 32-year-old & emergency department with chief complaint of upper abdominal pain, nausea and vomiting started at 7 AM today. Patient was recently discharged from the hospital for diagnosis of acute hypoxic respiratory failure secondary to pulmonary edema. Patient has a past medical history significant for diabetes, chronic renal failure with dialysis and ileus. Patient states that his blood sugars have been elevated in the 300s. He reports that he has dialysis scheduled tomorrow. He does act emergency department with elevated blood pressure 200/110. Patient reports that he's continued to vomit all day today. Patient's lab work was reviewed. Patient was given 0.5 Dilaudid reports that he feels much better. Vomiting has stopped. Patient lab work was negative for any significant changes. He is scheduled for dialysis tomorrow therefore his creatinine the septal this time. Patient states he feels much better and does want to go home. Discussed the radiology reports also show significant improvement of his lungs and the edema. Patient agrees. Patient will be discharged home at this time. - Lab Data Result diagrams: 07/03/16 19:48 07/03/16 19:48 Lab Results 07/03/16 07/03/16 07/03/16 Range/Units 19:48 19:48 19:48 WBC 8.9 (3.8-10.6) k/uL RBC 3.38 L (4.30-5.90) m/uL Hgb 10.2 L (13.0-17.5) gm/dL Hct 31.5 L (39.0-53.0) % MCV 93.2 (80.0-100.0) fL MCH 30.1 (25.0-35.0) pg MCHC 32.3 (31.0-37.0) g/dL RDW 17.1 H (11.5-15.5) % Plt Count 204 (150-450) k/uL Neutrophils % 75 % Lymphocytes % 13 % Monocytes % 7 % Eosinophils % 3 % Basophils % 1 % Neutrophils # 6.7 (1.3-7.7) k/uL Lymphocytes # 1.1 (1.0-4.8) k/uL Monocytes # 0.6 (0-1.0) k/uL Eosinophils # 0.3 (0-0.7) k/uL Basophils # 0.1 (0-0.2) k/uL Anisocytosis Slight Sodium 142 (137-145) mmol/L Potassium 3.9 (3.5-5.1) mmol/L Chloride 95 L (98-107) mmol/L Carbon Dioxide 29 (22-30) mmol/L Anion Gap 18 mmol/L BUN 51 H (9-20) mg/dL Creatinine 6.70 H* (0.66-1.25) mg/dL Est GFR (MDRD) Af Amer 11 (>60 ml/min/1.73 sqM) Est GFR (MDRD) Non-Af 9 (>60 ml/min/1.73 sqM) Glucose 173 H (74-99) mg/dL Calcium 9.8 (8.4-10.2) mg/dL Magnesium 2.2 (1.6-2.3) mg/dL Total Bilirubin 1.0 (0.2-1.3) mg/dL AST 28 (17-59) U/L ALT 32 (21-72) U/L Alkaline Phosphatase 187 H (38-126) U/L Total Creatine Kinase 84 (55-170) U/L CK-MB (CK-2) 3.4 H* (0.0-2.4) ng/mL CK-MB (CK-2) Rel Index 4.0 Troponin I 0.023 (0.000-0.034) ng/mL Total Protein 8.1 (6.3-8.2) g/dL Albumin 4.5 (3.5-5.0) g/dL Amylase 69 (30-110) U/L Lipase 153 (23-300) U/L 07/03/16 20:13 EKG shows sinus tachycardia. Evidence of ST wave abnormality considering lateral ischemia. Ventricular rate 1 bpm. WV 150 ms. QRS duration 82 Claudette's hands. QT QTC 350/persist for more 6. No evidence of atrial or ventricular arrhythmias. EKG was compared to EKG on June 24. No significant changes and findings. - Radiology Data Radiology results: report reviewed Chest x-ray and abdominal x-ray negative for any acute process. Disposition Clinical Impression: Nausea Disposition: HOME SELF-CARE Condition: Good Instructions: Acute Nausea and Vomiting (ED) Additional Instructions: Patient advised to follow-up with her dialysis appointment tomorrow. Return to the emergency department if any alarming signs or symptoms occur. Referrals: Kala Onofre MD [Primary Care Provider] - 1-2 days Time of Disposition: 21:15
[2016-07-03 20:11] LABS: Anisocytosis Slight; Basophils # (A) 0.1 k/uL (0-0.2); Basophils % (A) 1 %; CHCM 32.2; Eosinophils # (A) 0.3 k/uL (0-0.7); Eosinophils % (A) 3 %; HCT 31.5 % (39.0-53.0); HDW 2.47; HGB 10.2 gm/dL (13.0-17.5); Luc # (Auto) 0.14; Luc % (Auto) 2; Lymphocytes # (A) 1.1 k/uL (1.0-4.8); Lymphocytes % (A) 13 %; MCH 30.1 pg (25.0-35.0); MCHC 32.3 g/dL (31.0-37.0); MCV 93.2 fL (80.0-100.0); Mean Platelet Volume 7.9; Monocytes # (A) 0.6 k/uL (0-1.0); Monocytes % (A) 7 %; Neutrophils # (A) 6.7 k/uL (1.3-7.7); Neutrophils % (A) 75 %; RBC 3.38 m/uL (4.30-5.90); RDW 17.1 % (11.5-15.5); WBC 8.9 k/uL (3.8-10.6); WBC (Perox) 8.91
--- NOTE | 2016-07-03 20:18 | XR ---
EXAMINATION TYPE: XR chest 2V DATE OF EXAM: 07/03/2016 8:05 PM COMPARISON: Chest x-ray June 24, 2016. HISTORY: Chest and abdominal pain. TECHNIQUE: Frontal and lateral views of the chest are obtained. FINDINGS: There is no focal air space opacity, pleural effusion, or pneumothorax seen. The cardiac silhouette size remains enlarged. The osseous structures are intact. IMPRESSION: Cardiomegaly without acute pulmonary process currently.
--- NOTE | 2016-07-03 20:19 | XR ---
EXAMINATION TYPE: XR KUB DATE OF EXAM: 07/03/2016 8:05 PM CLINICAL HISTORY: Generalized abdominal pain with nausea vomiting and diarrhea. TECHNIQUE: 2 upright KUB images of the abdomen are obtained COMPARISON: Abdominal x-ray May 20, 2016. FINDINGS: Scattered gas is seen in non-distended small bowel loops. Gas and fecal material is seen in non-distended colon. Cholecystectomy clips are noted. Additional surgical clips right lower quadra nt are redemonstrated medially. Vascular calcification and phleboliths in the pelvis is seen. Cardiom egaly is present. Lung bases are clear. Osseous structures are intact. No pneumoperitoneum is identif ied. Vascular calcification bilateral renal artery branches is noted. Findings likely related to long -standing diabetes. IMPRESSION: Overall nonobstructive bowel gas pattern. No significant change from prior.
[2016-07-03 20:27] LABS: Calcium 9.8 mg/dL (8.4-10.2); Magnesium 2.2 mg/dL (1.6-2.3); Potassium 3.9 mmol/L (3.5-5.1); Total Protein 8.1 g/dL (6.3-8.2)
[2016-07-03 20:41] LABS: Troponin I 0.023 ng/mL (0.000-0.034)
[2016-07-03 20:42] LABS: Creatine Kinase MB 3.4 ng/mL (0.0-2.4)
[2016-07-03 21:26] VITALS: BP 179/88; PULSE 87; TEMP 98.7
== END 2016-07-03 21:38 | disposition home or self-care (01) ==
LOC: EC 18:55
DX: R10.11 Right upper quadrant pain (principal); R10.13 Epigastric pain; R11.2 Nausea with vomiting, unspecified; K21.9 Gastro-esophageal reflux disease without esophagitis; E11.29 Type 2 diabetes mellitus with other diabetic kidney complication; I13.0 Hypertensive heart and chronic kidney disease with heart failure and stage 1 through stage 4 chronic kidney disease, or unspecified chronic kidney disease; N18.4 Chronic kidney disease, stage 4 (severe); I50.9 Heart failure, unspecified; E07.9 Disorder of thyroid, unspecified; Z79.4 Long term (current) use of insulin; Z79.899 Other long term (current) drug therapy; Z88.5 Allergy status to narcotic agent; Z88.8 Allergy status to other drugs, medicaments and biological substances; Z87.19 Personal history of other diseases of the digestive system; Z90.49 Acquired absence of other specified parts of digestive tract; Z99.2 Dependence on renal dialysis; Z98.890 Other specified postprocedural states
CPT/HCPCS: 36415; 93005; 80053; 82150; 82550; 82553; 83690; 83735; 84484; 85025; 71020; 74000; 99285; 96374; 96361 ×2; J1170

== ENCOUNTER 2016-07-13 10:05 | Emergency (ER) | payer MEDICARE, OTHER ==
[2016-07-13 10:26] VITALS: TEMP 98.3
[2016-07-13 10:39] LABS: Glucose,Whole Blood 361 mg/dL (75-99)
[2016-07-13] MEDS ORDERED: PANTOPRAZOLE 40 MG/10 ML VIAL IVP STA (11:14)
[2016-07-13] MEDS ORDERED: SODIUM CHLORIDE 0.9% 1,000 ML IV STA (11:14)
[2016-07-13] MEDS ORDERED: ONDANSETRON 4 MG/2 ML VIAL IVP STA (11:14)
[2016-07-13] MEDS ORDERED: ENALAPRILAT 1.25 MG/ML 1 ML VIAL IVP STA (11:14)
[2016-07-13] MEDS ORDERED: LORazepam 2 MG/ML SYRINGE IV STA (11:16)
[2016-07-13] MEDS ORDERED: diphenhydrAMINE 50 MG/ML 1 ML VIAL IVP STA (11:16)
--- NOTE | 2016-07-13 11:19 | ED ---
General Adult HPI - General Chief complaint: Abdominal Pain Stated complaint: nausea, vomiting, abdominal pain Time Seen by Provider: 07/13/16 10:35 Source: patient, RN notes reviewed Mode of arrival: ambulatory Limitations: no limitations - History of Present Illness Initial comments: Patient is a pleasant 40-year-old male presenting to the emergency Department with nausea vomiting and abdominal pain. Patient has chronic problems. Patient has cyclic vomiting. Symptoms started again yesterday and worse today. Patient is unable to take his medications today. Patient has persistent vomiting. No fevers. Patient has discomfort in the epigastric region which is chronic for him. Blood sugar has been running in the mid 200s to over 300 since yesterday. One reading read high. - Related Data Home Medications Medication Instructions Recorded Confirmed LORazepam [Ativan] 1 mg PO DAILY PRN 06/06/14 07/13/16 Carvedilol [Coreg] 25 mg PO BID 07/10/14 07/13/16 amLODIPine BESYLATE [Amlodipine 10 mg PO DAILY 06/24/15 07/13/16 Besylate] Cinacalcet HCl [Sensipar] 60 mg PO HS 10/31/15 07/13/16 Hydrocodone/Acetaminophen 0.5 tab PO DAILY PRN 12/11/15 07/13/16 [Hydrocodon-Acetaminophn 10-325] Ondansetron Odt [Zofran ODT] 4 mg PO BID PRN 12/11/15 07/13/16 Insulin Glargine [Lantus] 12 unit SQ HS 01/12/16 07/13/16 Folic Acid-Vit B Complex-Vit C 1 cap PO DAILY 01/25/16 07/13/16 [Nephrocaps] B Complex W-C No.20/Folic Acid 1 mg PO DAILY 02/20/16 07/13/16 [Triphrocaps Softgel] Cyclobenzaprine [Flexeril] 10 mg PO TID PRN 02/20/16 07/13/16 INSULIN LISPRO (humaLOG) [humaLOG See Protocol SQ AC-TID 02/20/16 07/13/16 (formulary)] Omeprazole [PriLOSEC] 20 mg PO DAILY 02/20/16 07/13/16 HYDROmorphone [Dilaudid] 2 mg PO DAILY PRN 03/28/16 07/13/16 hydrALAZINE HCL [Apresoline] 100 mg PO QID 03/28/16 07/13/16 Lisinopril [Lisinopril] 5 mg PO DAILY 06/13/16 07/13/16 Calcium Acetate [Phoslo] 667 mg PO DAILY 07/13/16 07/13/16 Diphenoxylate HCl/Atropine 1 tab PO Q8H PRN 07/13/16 07/13/16 [Lomotil 2.5-0.025 mg Tablet] Famotidine [Pepcid] 20 mg PO DAILY 07/13/16 07/13/16 Previous Rx's Medication Instructions Recorded cloNIDine HCL [Catapres] 0.2 mg PO TID tab 02/20/16 Allergies Allergy/AdvReac Type Severity Reaction Status Date / Time codeine Allergy Itching Verified 07/13/16 11:00 metoclopramide HCl AdvReac MUSCLE Verified 07/13/16 11:00 [From Reglan] SPASMS morphine AdvReac INCREASES Verified 07/13/16 11:00 PAIN Review of Systems ROS Statement: Those systems with pertinent positive or pertinent negative responses have been documented in the HPI. ROS Other: All systems not noted in ROS Statement are negative. Constitutional: Denies: fever Eyes: Denies: eye pain ENT: Denies: ear pain Respiratory: Denies: cough Cardiovascular: Denies: chest pain Endocrine: Denies: fatigue Gastrointestinal: Reports: abdominal pain, nausea, vomiting Genitourinary: Denies: dysuria Musculoskeletal: Denies: back pain Skin: Denies: rash Neurological: Denies: headache Past Medical History Past Medical History: Chest Pain / Angina, Heart Failure, CVA/TIA, Diabetes Mellitus, Dialysis, Eye Disorder, GERD/Reflux, Hypertension, Renal Disease, Seizure Disorder, Thyroid Disorder Additional Past Medical History / Comment(s): Chronic renal failure stage IV, hemodialysis M/W/FR -last done 2 days ago, past peritoneal dialysis with peritonitis, gastroparesis, cyclic vomiting, chronic abdominal pain, pancreatitis, IDDM type I brittle, heart murmur, heat stroke-no residual, diabetic retinopathy bilaterally, retinal detachment with surgery, hypothyroid, hiatal hernia, sinusitis, bronchitis, chronic back pain, anemia, last seizure in 2016. History of Any Multi-Drug Resistant Organisms: None Reported Past Surgical History: Cholecystectomy, Heart Catheterization, Hernia Repair Additional Past Surgical History / Comment(s): bilateral retinal reattachment sx , hemodialysis catheter in Feb 2013, lt arm fistual, L inguinal hernia, 2009 cardiac cath. Past Anesthesia/Blood Transfusion Reactions: No Reported Reaction Past Psychological History: Anxiety, Depression Additional Psychological History / Comment(s): Pt has his mother living with him. He uses no assistive device. He drives. Smoking Status: Never smoker Past Alcohol Use History: None Reported Additional Past Alcohol Use History / Comment(s): STARTED SMOKING AT AGE 18 SMOKED SOCIALLY AND QUIT 1998 Past Drug Use History: None Reported Additional Drug Use History / Comment(s): PAST medical Marijuana use in high school. - Past Family History Father History Unknown: Yes Mother History Unknown: Yes Family Medical History: COPD Additional Family Medical History / Comment(s): Mother has never smoked. Mother' s brother had diabetes and multiple sclerosis. Brother(s) Family Medical History: Diabetes Mellitus Additional Family Medical History / Comment(s): multiple sclerosis General Exam Limitations: no limitations General appearance: alert, anxious Head exam: Present: atraumatic Eye exam: Present: normal appearance, PERRL ENT exam: Present: normal oropharynx Neck exam: Present: normal inspection Respiratory exam: Present: normal lung sounds bilaterally Cardiovascular Exam: Present: regular rate, normal rhythm Expanded Peripheral pulses: 2+: Dorsalis Pedis (R), Dorsalis Pedis (L) GI/Abdominal exam: Present: soft, tenderness (Mild to moderate epigastric tenderness), normal bowel sounds. Absent: distended, guarding, rebound, rigid, pulsatile mass Extremities exam: Present: normal inspection Neurological exam: Present: alert Psychiatric exam: Present: normal affect, normal mood Skin exam: Present: normal color Course Vital Signs 07/13/16 07/13/16 07/13/16 10:23 11:50 12:22 Temperature 98.3 F Pulse Rate 93 94 992 H Respiratory 22 18 18 Rate Blood Pressure 222/109 234/139 223/130 O2 Sat by Pulse 93 L 96 97 Oximetry 07/13/16 13:24 Temperature Pulse Rate 95 Respiratory 20 Rate Blood Pressure 240/112 O2 Sat by Pulse 99 Oximetry Medical Decision Making - Medical Decision Making Patient reexamined and resting comfortably in bed. Patient is resting. Pain is tolerable. Patient is no longer nauseous. Blood pressure has improved. Patient updated on results and need for follow-up. Patient is comfortable with discharge home. - Lab Data Result diagrams: 07/13/16 11:28 07/13/16 11:28 Lab Results 07/13/16 07/13/16 07/13/16 Range/Units 10:34 11:28 11:28 WBC 9.5 (3.8-10.6) k/uL RBC 3.14 L (4.30-5.90) m/uL Hgb 8.8 L (13.0-17.5) gm/dL Hct 29.8 L (39.0-53.0) % MCV 95.0 (80.0-100.0) fL MCH 28.0 (25.0-35.0) pg MCHC 29.5 L (31.0-37.0) g/dL RDW 17.3 H (11.5-15.5) % Plt Count 215 (150-450) k/uL Neutrophils % 77 % Lymphocytes % 11 % Monocytes % 6 % Eosinophils % 3 % Basophils % 1 % Neutrophils # 7.3 (1.3-7.7) k/uL Lymphocytes # 1.1 (1.0-4.8) k/uL Monocytes # 0.6 (0-1.0) k/uL Eosinophils # 0.3 (0-0.7) k/uL Basophils # 0.1 (0-0.2) k/uL Anisocytosis Slight PT (9.0-12.0) sec INR (<1.1) APTT (22.0-30.0) sec Sodium 138 (137-145) mmol/L Potassium 4.1 (3.5-5.1) mmol/L Chloride 92 L (98-107) mmol/L Carbon Dioxide 29 (22-30) mmol/L Anion Gap 17 mmol/L BUN 51 H (9-20) mg/dL Creatinine 7.77 H* (0.66-1.25) mg/dL Est GFR (MDRD) Af Amer 10 (>60 ml/min/1.73 sqM) Est GFR (MDRD) Non-Af 8 (>60 ml/min/1.73 sqM) Glucose 305 H (74-99) mg/dL POC Glucose (mg/dL) 361 H (75-99) mg/dL POC Glu [employer] ID Kimberly Hussein Calcium 10.0 (8.4-10.2) mg/dL Total Bilirubin 1.1 (0.2-1.3) mg/dL AST 26 (17-59) U/L ALT 51 (21-72) U/L Alkaline Phosphatase 307 H (38-126) U/L Total Protein 8.2 (6.3-8.2) g/dL Albumin 4.6 (3.5-5.0) g/dL Amylase 65 (30-110) U/L Lipase 227 (23-300) U/L Acetone, Qual Negative (Negative) 07/13/16 Range/Units 11:28 WBC (3.8-10.6) k/uL RBC (4.30-5.90) m/uL Hgb (13.0-17.5) gm/dL Hct (39.0-53.0) % MCV (80.0-100.0) fL MCH (25.0-35.0) pg MCHC (31.0-37.0) g/dL RDW (11.5-15.5) % Plt Count (150-450) k/uL Neutrophils % % Lymphocytes % % Monocytes % % Eosinophils % % Basophils % % Neutrophils # (1.3-7.7) k/uL Lymphocytes # (1.0-4.8) k/uL Monocytes # (0-1.0) k/uL Eosinophils # (0-0.7) k/uL Basophils # (0-0.2) k/uL Anisocytosis PT 10.7 (9.0-12.0) sec INR 1.1 (<1.1) APTT 25.4 (22.0-30.0) sec Sodium (137-145) mmol/L Potassium (3.5-5.1) mmol/L Chloride (98-107) mmol/L Carbon Dioxide (22-30) mmol/L Anion Gap mmol/L BUN (9-20) mg/dL Creatinine (0.66-1.25) mg/dL Est GFR (MDRD) Af Amer (>60 ml/min/1.73 sqM) Est GFR (MDRD) Non-Af (>60 ml/min/1.73 sqM) Glucose (74-99) mg/dL POC Glucose (mg/dL) (75-99) mg/dL POC Glu [facility] [employer] ID Calcium (8.4-10.2) mg/dL Total Bilirubin (0.2-1.3) mg/dL AST (17-59) U/L ALT (21-72) U/L Alkaline Phosphatase (38-126) U/L Total Protein (6.3-8.2) g/dL Albumin (3.5-5.0) g/dL Amylase (30-110) U/L Lipase (23-300) U/L Acetone, Qual (Negative) - Radiology Data Radiology results: image reviewed (X-ray shows no acute process) Disposition Clinical Impression: Hypertension, Cyclical vomiting Disposition: HOME SELF-CARE Condition: Stable Instructions: Acute Nausea and Vomiting (ED), Hypertension (ED) Additional Instructions: Please follow-up with primary care physician in the next day or 2 for recheck. Return for not tolerating fluids, uncontrolled blood pressure, change or worsening symptoms or other concerns. Referrals: Kala Onofre MD [Primary Care Provider] - 1-2 days Time of Disposition: 13:39
[2016-07-13 11:39] LABS: Anisocytosis Slight; Basophils # (A) 0.1 k/uL (0-0.2); Basophils % (A) 1 %; CH 30.2; CHCM 31.9; Eosinophils # (A) 0.3 k/uL (0-0.7); Eosinophils % (A) 3 %; HCT 29.8 % (39.0-53.0); HDW 2.39; HGB 8.8 gm/dL (13.0-17.5); Luc % (Auto) 2; Lymphocytes # (A) 1.1 k/uL (1.0-4.8); Lymphocytes % (A) 11 %; MCHC 29.5 g/dL (31.0-37.0); Mean Platelet Volume 8.5; Monocytes # (A) 0.6 k/uL (0-1.0); Monocytes % (A) 6 %; Neutrophils # (A) 7.3 k/uL (1.3-7.7); Neutrophils % (A) 77 %; RBC 3.14 m/uL (4.30-5.90); RDW 17.3 % (11.5-15.5); WBC 9.5 k/uL (3.8-10.6); WBC (Perox) 9.39
[2016-07-13 11:50] LABS: INR 1.1 (<1.1); Partial Thromboplastin Time 25.4 sec (22.0-30.0); Prothrombin Time 10.7 sec (9.0-12.0)
[2016-07-13 12:01] LABS: AST 26 U/L (17-59); Amylase 65 U/L (30-110); Anion Gap 17 mmol/L; Blood Urea Nitrogen 51 mg/dL (9-20); Carbon Dioxide 29 mmol/L (22-30); Chloride 92 mmol/L (98-107); Glucose 305 mg/dL (74-99); Potassium 4.1 mmol/L (3.5-5.1); Sodium 138 mmol/L (137-145); Total Bilirubin 1.1 mg/dL (0.2-1.3); Total Protein 8.2 g/dL (6.3-8.2)
[2016-07-13 12:02] LABS: ALT 51 U/L (21-72); Alkaline Phosphatase 307 U/L (38-126)
[2016-07-13 12:13] LABS: Non-African American GFR(MDRD) 8 (>60 ml/min/1.73 sqM)
--- NOTE | 2016-07-13 12:21 | XR ---
EXAMINATION TYPE: XR KUB DATE OF EXAM: 07/13/2016 12:04 PM CLINICAL DATA: 40-year-old male abdominal pain COMPARISON: 07/04/2019 FINDINGS: The cardiac silhouette appears mildly enlarged. Lung bases are clear. No evidence for free intraperitoneal air. Diffuse vascular calcifications are present. Cholecystectomy clips. Phleboliths in the pelvis. No dilated small bowel or air-fluid levels. Scattered air and stool seen throughout the colon extendi ng distally into the rectum. No significant stool burden. IMPRESSION: 1. There appears to be mild cardiomegaly. Also, diffuse arterial calcification suggest underlying tammi betes and/or chronic kidney disease. 2.No evidence of bowel obstruction or free intraperitoneal air.
[2016-07-13] MEDS ORDERED: INSULIN REGULAR 100 UNIT/ML VIAL IV ONE (12:31)
[2016-07-13] MEDS ORDERED: HYDROmorphone 1 MG/ML 1 ML SYRINGE IVP STA (12:44)
[2016-07-13] MEDS ORDERED: hydrALAZINE HCL 20 MG/ML 1 ML VIAL IVP STA (12:45)
[2016-07-13 13:58] VITALS: BP 170/81; PULSE 88; RESP 18
== END 2016-07-13 13:57 | disposition home or self-care (01) ==
LOC: EC 10:05
DX: I13.0 Hypertensive heart and chronic kidney disease with heart failure and stage 1 through stage 4 chronic kidney disease, or unspecified chronic kidney disease (principal); G43.A0 Cyclical vomiting, in migraine, not intractable; I50.9 Heart failure, unspecified; N18.4 Chronic kidney disease, stage 4 (severe); E11.22 Type 2 diabetes mellitus with diabetic chronic kidney disease; K21.9 Gastro-esophageal reflux disease without esophagitis; I25.2 Old myocardial infarction; Z79.4 Long term (current) use of insulin; Z79.899 Other long term (current) drug therapy; Z88.5 Allergy status to narcotic agent; Z88.8 Allergy status to other drugs, medicaments and biological substances; Z86.79 Personal history of other diseases of the circulatory system; Z99.2 Dependence on renal dialysis; Z90.49 Acquired absence of other specified parts of digestive tract; Z95.818 Presence of other cardiac implants and grafts
CPT/HCPCS: 99284; 96374; 96375 ×6; 96361; 36415; 80053; 82150; 82009; 83690; 85025; 85610; 85730; 74000; J2060; J0360; J1200; J2405; J1170; C9113

== ENCOUNTER 2016-07-14 12:50 | Inpatient (IN) | payer MEDICARE, OTHER ==
[2016-07-14] MEDS ORDERED: HYDROmorphone 1 MG/ML 1 ML SYRINGE IVP STA (14:27)
[2016-07-14] MEDS ORDERED: ONDANSETRON 4 MG/2 ML VIAL IVP STA (14:27)
[2016-07-14] MEDS ORDERED: SODIUM CHLORIDE 0.9% 1,000 ML IV STA (14:27)
--- NOTE | 2016-07-14 14:42 | ED ---
Abdominal Pain HPI - General Chief Complaint: Abdominal Pain Stated Complaint: ABDOMINAL PAIN, VOMITING Time Seen by Provider: 07/14/16 14:00 Source: patient, family, RN notes reviewed Mode of arrival: EMS Limitations: no limitations - History of Present Illness Initial Comments: This is a 40-year-old male with a history of diabetes and renal failure gastroparesis and chronic abdominal pain who is back today because of nausea vomiting decreased oral intake and generalized weakness. He was seen in this emergency department last night and ended up being discharged he then went [facility] and was discharged from there went to his doctor's this morning was transported here by EMS for evaluation. No fevers chills or sweats just upper abdominal pain which is consistent with his prior history of gastroparesis and abdominal pain in multiple previous admissions. Additionally patient did miss his dialysis today as he was unable to go because of the abdominal pain and vomiting. MD Complaint: abdominal pain - Related Data Home Medications Medication Instructions Recorded Confirmed LORazepam [Ativan] 1 mg PO DAILY PRN 06/06/14 07/13/16 Carvedilol [Coreg] 25 mg PO BID 07/10/14 07/13/16 amLODIPine BESYLATE [Amlodipine 10 mg PO DAILY 06/24/15 07/13/16 Besylate] Cinacalcet HCl [Sensipar] 60 mg PO HS 10/31/15 07/13/16 Hydrocodone/Acetaminophen 0.5 tab PO DAILY PRN 12/11/15 07/13/16 [Hydrocodon-Acetaminophn 10-325] Ondansetron Odt [Zofran ODT] 4 mg PO BID PRN 12/11/15 07/13/16 Insulin Glargine [Lantus] 12 unit SQ HS 01/12/16 07/13/16 Folic Acid-Vit B Complex-Vit C 1 cap PO DAILY 01/25/16 07/13/16 [Nephrocaps] B Complex W-C No.20/Folic Acid 1 mg PO DAILY 02/20/16 07/13/16 [Triphrocaps Softgel] Cyclobenzaprine [Flexeril] 10 mg PO TID PRN 02/20/16 07/13/16 INSULIN LISPRO (humaLOG) [humaLOG See Protocol SQ AC-TID 02/20/16 07/13/16 (formulary)] Omeprazole [PriLOSEC] 20 mg PO DAILY 02/20/16 07/13/16 HYDROmorphone [Dilaudid] 2 mg PO DAILY PRN 03/28/16 07/13/16 hydrALAZINE HCL [Apresoline] 100 mg PO QID 03/28/16 07/13/16 Lisinopril [Lisinopril] 5 mg PO DAILY 06/13/16 07/13/16 Calcium Acetate [Phoslo] 667 mg PO DAILY 07/13/16 07/13/16 Diphenoxylate HCl/Atropine 1 tab PO Q8H PRN 07/13/16 07/13/16 [Lomotil 2.5-0.025 mg Tablet] Famotidine [Pepcid] 20 mg PO DAILY 07/13/16 07/13/16 Previous Rx's Medication Instructions Recorded cloNIDine HCL [Catapres] 0.2 mg PO TID tab 02/20/16 Allergies Allergy/AdvReac Type Severity Reaction Status Date / Time codeine Allergy Itching Verified 07/13/16 11:00 metoclopramide HCl AdvReac MUSCLE Verified 07/13/16 11:00 [From Reglan] SPASMS morphine AdvReac INCREASES Verified 07/13/16 11:00 PAIN Review of Systems ROS Statement: Those systems with pertinent positive or pertinent negative responses have been documented in the HPI. ROS Other: All systems not noted in ROS Statement are negative. Past Medical History Past Medical History: Chest Pain / Angina, Heart Failure, CVA/TIA, Diabetes Mellitus, Dialysis, Eye Disorder, GERD/Reflux, Hypertension, Renal Disease, Seizure Disorder, Thyroid Disorder Additional Past Medical History / Comment(s): Chronic renal failure stage IV, hemodialysis M/W/FR -last done 2 days ago, past peritoneal dialysis with peritonitis, gastroparesis, cyclic vomiting, chronic abdominal pain, pancreatitis, IDDM type I brittle, heart murmur, heat stroke-no residual, diabetic retinopathy bilaterally, retinal detachment with surgery, hypothyroid, hiatal hernia, sinusitis, bronchitis, chronic back pain, anemia, last seizure in 2015. History of Any Multi-Drug Resistant Organisms: None Reported Past Surgical History: Cholecystectomy, Heart Catheterization, Hernia Repair Additional Past Surgical History / Comment(s): bilateral retinal reattachment sx , hemodialysis catheter in Feb 2013, lt arm fistual, L inguinal hernia, 2009 cardiac cath. Past Anesthesia/Blood Transfusion Reactions: No Reported Reaction Past Psychological History: Anxiety, Depression Additional Psychological History / Comment(s): Pt has his mother living with him. He uses no assistive device. He drives. Smoking Status: Never smoker Past Alcohol Use History: None Reported Additional Past Alcohol Use History / Comment(s): STARTED SMOKING AT AGE 18 SMOKED SOCIALLY AND QUIT 1998 Past Drug Use History: None Reported Additional Drug Use History / Comment(s): PAST medical Marijuana use in high school. - Past Family History Father History Unknown: Yes Mother History Unknown: Yes Family Medical History: COPD Additional Family Medical History / Comment(s): Mother has never smoked. Mother' s brother had diabetes and multiple sclerosis. Brother(s) Family Medical History: Diabetes Mellitus Additional Family Medical History / Comment(s): multiple sclerosis General Exam - General Exam Comments Initial Comments: This is a well-developed well-nourished awake alert oriented times female he is nauseated Limitations: no limitations General appearance: alert, anxious Head exam: Present: atraumatic, normocephalic, normal inspection Eye exam: Present: normal appearance, PERRL, EOMI. Absent: scleral icterus, conjunctival injection, periorbital swelling ENT exam: Present: mucous membranes dry Neck exam: Present: normal inspection. Absent: tenderness, meningismus, lymphadenopathy Respiratory exam: Present: normal lung sounds bilaterally. Absent: respiratory distress, wheezes, rales, rhonchi, stridor Cardiovascular Exam: Present: regular rate, normal rhythm, normal heart sounds. Absent: systolic murmur, diastolic murmur, rubs, gallop, clicks GI/Abdominal exam: Present: soft, tenderness (Epigastric tenderness palpation no guarding rebound masses or bruits), normal bowel sounds. Absent: distended, guarding, rebound, rigid, bruit, pulsatile mass, hernia Rectal exam: Present: deferred Extremities exam: Present: normal inspection, full ROM, normal capillary refill , other (The patient's left upper extremity fistula is functioning well). Absent: tenderness, pedal edema, joint swelling, calf tenderness Back exam: Present: normal inspection Neurological exam: Present: alert, oriented X3, CN II-XII intact Psychiatric exam: Present: normal affect, normal mood Skin exam: Present: warm, dry, intact, normal color. Absent: rash Course Vital Signs 07/14/16 12:58 Temperature 97.9 F Pulse Rate 84 Respiratory 18 Rate Blood Pressure 161/74 O2 Sat by Pulse 92 L Oximetry Medical Decision Making - Medical Decision Making Did discuss findings with the admitting hospitalist service patient will be admitted with consultation to nephrology for dialysis. - Lab Data Result diagrams: 07/14/16 13:18 07/14/16 13:18 Lab Results 07/14/16 07/14/16 Range/Units 13:18 13:18 WBC 8.7 (3.8-10.6) k/uL RBC 3.19 L (4.30-5.90) m/uL Hgb 9.6 L (13.0-17.5) gm/dL Hct 30.5 L (39.0-53.0) % MCV 95.4 (80.0-100.0) fL MCH 30.1 (25.0-35.0) pg MCHC 31.5 (31.0-37.0) g/dL RDW 17.9 H (11.5-15.5) % Plt Count 227 (150-450) k/uL Neutrophils % 78 % Lymphocytes % 10 % Monocytes % 5 % Eosinophils % 3 % Basophils % 1 % Neutrophils # 6.8 (1.3-7.7) k/uL Lymphocytes # 0.9 L (1.0-4.8) k/uL Monocytes # 0.4 (0-1.0) k/uL Eosinophils # 0.2 (0-0.7) k/uL Basophils # 0.1 (0-0.2) k/uL Anisocytosis Slight Macrocytosis Slight Sodium 138 (137-145) mmol/L Potassium 4.2 (3.5-5.1) mmol/L Chloride 96 L (98-107) mmol/L Carbon Dioxide 21 L (22-30) mmol/L Anion Gap 21 mmol/L BUN 58 H (9-20) mg/dL Creatinine 9.88 H* (0.66-1.25) mg/dL Est GFR (MDRD) Af Amer 7 (>60 ml/min/1.73 sqM) Est GFR (MDRD) Non-Af 6 (>60 ml/min/1.73 sqM) Glucose 258 H (74-99) mg/dL Calcium 9.9 (8.4-10.2) mg/dL Total Bilirubin 1.0 (0.2-1.3) mg/dL AST 22 (17-59) U/L ALT 46 (21-72) U/L Alkaline Phosphatase 286 H (38-126) U/L Total Protein 7.0 (6.3-8.2) g/dL Albumin 3.9 (3.5-5.0) g/dL Amylase 87 (30-110) U/L Lipase 100 (23-300) U/L Disposition Clinical Impression: Intractable vomiting, Abdominal pain, Chronic renal failure syndrome Disposition: ADMITTED IP TO THIS HOSP Condition: Stable Referrals: Kala Onofre MD [Primary Care Provider] - 1-2 days
[2016-07-14] MEDS ORDERED: FAMOTIDINE 20 MG/2 ML VIAL IV STA (14:55)
[2016-07-14 15:00] LABS: Anisocytosis Slight; Basophils # (A) 0.1 k/uL (0-0.2); Basophils % (A) 1 %; CHCM 31.6; Eosinophils # (A) 0.2 k/uL (0-0.7); Eosinophils % (A) 3 %; HCT 30.5 % (39.0-53.0); HDW 2.37; HGB 9.6 gm/dL (13.0-17.5); Luc # (Auto) 0.29; Luc % (Auto) 3; Lymphocytes # (A) 0.9 k/uL (1.0-4.8); Lymphocytes % (A) 10 %; MCH 30.1 pg (25.0-35.0); MCHC 31.5 g/dL (31.0-37.0); MCV 95.4 fL (80.0-100.0); Macrocytosis Slight; Mean Platelet Volume 8.4; Monocytes # (A) 0.4 k/uL (0-1.0); Monocytes % (A) 5 %; Neutrophils # (A) 6.8 k/uL (1.3-7.7); Neutrophils % (A) 78 %; RBC 3.19 m/uL (4.30-5.90); RDW 17.9 % (11.5-15.5); WBC 8.7 k/uL (3.8-10.6); WBC (Perox) 9.04
[2016-07-14 15:13] LABS: Calcium 9.9 mg/dL (8.4-10.2); Potassium 4.2 mmol/L (3.5-5.1)
[2016-07-14] MEDS ORDERED: NALOXONE 0.4 MG/ML 1 ML VIAL IV PRN (15:37)
[2016-07-14] MEDS ORDERED: CYCLOBENZAPRINE 10 MG TAB PO PRN (15:40)
[2016-07-14] MEDS ORDERED: LORazepam 1 MG TAB PO PRN (15:40)
[2016-07-14] MEDS ORDERED: SODIUM CHLORIDE 0.9% 1,000 ML IV SCH (15:45)
--- NOTE | 2016-07-14 15:58 | XR ---
Abdomen HISTORY: Abdominal pain Frontal view of the abdomen on 2 images Correlation to prior exam 13 Jul 2016 There is no significant interval change. Dense vascular calcifications are present. Surgical clips ar e present in the right upper quadrant. Lung bases are clear. No obstruction or pneumoperitoneum. IMPRESSION: No acute abnormalities evident.
[2016-07-14 16:45] VITALS: BMI 21.9
[2016-07-14] MEDS ORDERED: DIPHENOX-ATROP 2.5-0.025 MG 1 EACH TAB PO PRN (17:04)
[2016-07-14] MEDS ORDERED: TEMAZEPAM 15 MG CAP PO PRN (17:06)
[2016-07-14] MEDS ORDERED: ALPRAZolam 0.25 MG TAB PO PRN (17:06)
[2016-07-14] MEDS ORDERED: cloNIDine HCL 0.1 MG TAB PO PRN (17:08)
[2016-07-14] MEDS ORDERED: hydrALAZINE HCL 20 MG/ML 1 ML VIAL IVP PRN (17:08)
[2016-07-14] MEDS: hydrALAZINE HCL 50 MG TAB PO SCH ×2 (17:53→22:21)
[2016-07-14] MEDS: CARVEDILOL 12.5 MG TAB PO SCH (17:54)
[2016-07-14] MEDS: cloNIDine HCL 0.2 MG TAB PO SCH ×2 (17:54→22:21)
[2016-07-14] MEDS: INSULIN LISPRO (humaLOG) 300 UNIT/3 ML VIAL SQ SCH ×2 (17:56→20:45)
[2016-07-14 17:57] LABS: Glucose,Whole Blood 234 mg/dL (75-99)
[2016-07-14] MEDS ORDERED: hydrALAZINE HCL 50 MG TAB PO SCH (18:00)
[2016-07-14] MEDS: HYDROmorphone 1 MG/ML 1 ML SYRINGE IV PRN (19:53)
[2016-07-14 20:21] LABS: Glucose,Whole Blood 117 mg/dL (75-99)
[2016-07-14] MEDS: PANTOPRAZOLE 40 MG/10 ML VIAL IVP SCH (20:44)
[2016-07-14] MEDS: diphenhydrAMINE 25 MG CAP PO PRN (20:44)
[2016-07-14] MEDS ORDERED: CINACALCET 30 MG TAB PO SCH (21:00)
[2016-07-14] MEDS ORDERED: INSULIN GLARGINE 100 UNIT/ML 10 ML VIAL SQ SCH (21:00)
--- NOTE | 2016-07-14 21:25 | HP ---
DATE OF ADMISSION: 07/14/2016 CHIEF COMPLAINT: Abdominal pain, nausea and vomiting and diarrhea. HISTORY OF PRESENT ILLNESS: This 40-year-old gentleman with a past history of CHF, history of cerebrovascular accident, diabetes, history of diabetic nephropathy, hemodialysis, VRE, hypertension, history of seizure disorder, history of cholecystectomy, being followed by Dr. Onofre in the outpatient setting was complaining of abdominal pain, diarrhea, nausea and vomiting for the past several days. The patient apparently in and out of ERs. The patient also had gastroparesis and the patient also had chronic abdominal pain. The patient was recently discharged from [facility] and the patient because of increasing complaints patient came to [facility] and admitted to the hospital for further evaluation and treatment. There is no history of any fever, rigors or chills. No history of headache, loss of consciousness or seizures. The patient unable to keep anything down according to the history. Past medical history of CHF, cerebrovascular accident, TIA, diabetes mellitus, chronically on hemodialysis, history of hypothyroidism, seizure disorder. Medications prior to admission include home medications are: 1. Apresoline 100 mg p.o. t.i.d. 2. Benadryl 24 mg p.o. t.i.d. prn 3. Catapres 0.2 t.i.d. 4. Amlodipine 10 mg p.o. daily. 5. Zofran 4 mg b.i.d. p.r.n. 6. Prilosec 20 mg daily. 7. Lisinopril 5 mg p.o. daily. 8. Ativan 1 mg daily. 9. Lantus 12 units subcu q.h.s. 10. Humalog a.c. t.i.d. CKs. 11. Dilaudid 2 milligrams daily p.r.n. 12. Nephrocaps 1 capsule daily. 13. Pepcid 20 mg daily. 14. Lomotil 1 15. Flexeril 10 mg t.i.d. p.r.n. 16. Sensipar 60 mg q.h.s. 17. Coreg 25 mg p.o. daily. 18. PhosLo 667 daily. ALLERGIES: CODEINE, REGLAN AND MORPHINE. FAMILY HISTORY: History of diabetes and multiple sclerosis. SOCIAL HISTORY: No history of smoking. No history of alcohol intake. REVIEW OF SYSTEMS: ENT: Diminished vision. Diminished hearing. Diabetic retinopathy. CARDIOVASCULAR: As mentioned earlier. RESPIRATORY: As mentioned earlier. GI: As mentioned earlier. : As mentioned earlier. CENTRAL NERVOUS SYSTEM: As mentioned earlier. ALLERGY/IMMUNOLOGY: No asthma or hayfever. MUSCULOSKELETAL: As mentioned earlier. ENDOCRINE: Diabetes mellitus. CONSTITUTIONAL: As mentioned earlier. DERMATOLOGY: Negative. RHEUMATOLOGY: Negative. PSYCHIATRY: As mentioned earlier. PHYSICAL EXAMINATION: alert and oriented x3. Pulse 84, blood pressure 116/74, respiratory rate 18, temperature 97.9, pulse ox 92% on room air. HEENT: Conjunctivae normal. Oral mucosa moist. NECK: No jugular venous distention. No carotid bruit. No lymph node enlargement. CARDIOVASCULAR: S1, S2 muffled. No S3, no S4. RESPIRATORY: Breath sounds diminished at the bases. A few scattered rhonchi, no crackles. ABDOMEN: Soft. Mild diffuse distention present. Mild diffuse tenderness also present. No guarding or rigidity. No mass palpable. Legs: No edema. No swelling. CENTRAL NERVOUS SYSTEM: Higher functions as mentioned earlier. Moves all four limbs. No focal deficits. LYMPHATICS: No lymph nodes palpable in the neck, axillae or groin. SKIN: No ulcer, rash or bleeding. LABS: WBC is 8.3, hemoglobin 9.6 and creatinine is 9.88, glucose 259. ASSESSMENT: 1. Abdominal pain, nausea, vomiting, possibly acute gastroenteritis. 2. Acute diabetic gastroparesis, acute exacerbation with unable to keep anything down. 3. Intractable abdominal pain. 4. Chronic renal failure, stage V, on hemodialysis diabetic nephropathy. 5. Diabetes type 1. 6. Increased alkaline phosphatase. 7. Anemia, anemia of chronic disease. 8. History of noncompliance. 9. History of accelerated hypertension. 10. History of brittle diabetes mellitus, type I. 11. Chronic pain syndrome. 12. History of cerebrovascular accident, transient ischemic attack. 13. History of gastroesophageal reflux disease. 14. Hypothyroidism. 15. History of gastroparesis. 16. History of cardiac catheterization. 17. History of diabetic retinopathy. 18. History of pancreatitis. 19. Anxiety, depression, not otherwise specified. 20. History of nicotine dependence. 21. History of THC. 22. History of hypothyroidism. 23. FULL CODE. RECOMMENDATIONS AND DISCUSSION: In this 40-year-old gentleman who presented with multiple complex medical issues, we will monitor the patient closely. Continue the current medications. Continue symptomatic treatment. We will initiate the patient on symptomatic treatment. Otherwise, clear liquid diet and repeat labs. Hemodialysis. Consult Dr. Rush. Prognosis is guarded because of multiple complex medical issues. Further recommendations to follow. A copy of dictation being forwarded to Dr. Onofre who is the primary physician. [facility]
[2016-07-14 22:40] VITALS: RESP 18
[2016-07-15] MEDS: HYDROmorphone 1 MG/ML 1 ML SYRINGE IV PRN ×3 (00:18→14:32)
[2016-07-15] MEDS: ONDANSETRON 4 MG/2 ML VIAL IVP PRN ×2 (00:18→09:46)
[2016-07-15] MEDS ORDERED: PANTOPRAZOLE 40 MG TABLET PO SCH (07:30)
[2016-07-15 07:33] LABS: Glucose,Whole Blood 86 mg/dL (75-99)
[2016-07-15 07:38] LABS: Anisocytosis Slight; Basophils # (A) 0.1 k/uL (0-0.2); Basophils % (A) 1 %; CH 30.6; CHCM 33.1; Eosinophils # (A) 0.4 k/uL (0-0.7); Eosinophils % (A) 5 %; HCT 29.8 % (39.0-53.0); HDW 2.57; HGB 9.7 gm/dL (13.0-17.5); Luc # (Auto) 0.27; Luc % (Auto) 3; Lymphocytes # (A) 1.8 k/uL (1.0-4.8); Lymphocytes % (A) 21 %; MCH 30.3 pg (25.0-35.0); MCHC 32.6 g/dL (31.0-37.0); MCV 93.1 fL (80.0-100.0); Mean Platelet Volume 8.3; Monocytes # (A) 0.5 k/uL (0-1.0); Monocytes % (A) 6 %; Neutrophils # (A) 5.3 k/uL (1.3-7.7); Neutrophils % (A) 64 %; RBC 3.21 m/uL (4.30-5.90); RDW 18.4 % (11.5-15.5); WBC 8.3 k/uL (3.8-10.6); WBC (Perox) 7.96
[2016-07-15 08:02] LABS: Calcium 10.1 mg/dL (8.4-10.2); Potassium 4.2 mmol/L (3.5-5.1)
[2016-07-15] MEDS ORDERED: FAMOTIDINE 20 MG TAB PO SCH (09:00)
[2016-07-15] MEDS ORDERED: CALCIUM ACETATE 667 MG CAP PO SCH (09:00)
[2016-07-15] MEDS ORDERED: LISINOPRIL 5 MG TAB PO SCH (09:00)
[2016-07-15] MEDS ORDERED: amLODIPine 10 MG TAB PO SCH (09:00)
[2016-07-15] MEDS ORDERED: FOLIC ACID-VIT B COMPLEX-VIT C 1 CAP PO SCH ×2 (09:00→12:00)
[2016-07-15 09:18] VITALS: BP 157/86; PULSE 77; TEMP 98.6
[2016-07-15] MEDS: hydrALAZINE HCL 50 MG TAB PO SCH (09:33)
[2016-07-15] MEDS: CARVEDILOL 12.5 MG TAB PO SCH (09:33)
[2016-07-15] MEDS: cloNIDine HCL 0.2 MG TAB PO SCH (09:34)
[2016-07-15] MEDS: PANTOPRAZOLE 40 MG/10 ML VIAL IVP SCH (09:37)
[2016-07-15] MEDS: INSULIN LISPRO (humaLOG) 300 UNIT/3 ML VIAL SQ SCH ×2 (09:37→13:51)
[2016-07-15] MEDS: diphenhydrAMINE 25 MG CAP PO PRN ×2 (10:33→10:35)
[2016-07-15 11:31] LABS: Hemoglobin A1C 8.1 % (4.2-6.1)
[2016-07-15 14:00] LABS: Glucose,Whole Blood 104 mg/dL (75-99)
--- NOTE | 2016-07-15 14:33 | CONS ---
DATE OF CONSULTATION: 07/15/2016. REASON FOR CONSULTATION: End-stage renal disease. HISTORY OF PRESENT ILLNESS: Patient is a 40-year-old male well known to us. He has a history of end-stage renal disease on hemodialysis on a Saturday, Saturday, Saturday schedule. Patient was admitted to the hospital with abdominal pain. He has some nausea and vomiting. The patient stated that he missed his treatment on Saturday because he missed his bus. He said that he had gone back inside his house because of nausea and vomiting and the bus did not wait for him. There is no fever, no chills. No headaches. No chest pain. No significant shortness of breath. PAST MEDICAL HISTORY: Type 1 diabetes, hypothyroidism, anemia of chronic disease. CKD bone mineral disorder, history of CHF, history of TIA, diabetic retinopathy and peripheral neuropathy. Medications prior to admission included: 1. Hydralazine. 2. Benadryl. 3. Clonidine. 4. Amlodipine. 5. Zofran. 6. Prilosec. 7. Lisinopril. 8. Ativan. 9. Insulin. 10. Nephrocaps. 11. Pepcid. 12. Flexeril. 13. Sensipar. 14. Coreg. 15. PhosLo. ALLERGIES INCLUDE CODEINE AND REGLAN AND MORPHINE. SOCIAL HISTORY: Negative for smoking, drug abuse or alcohol abuse. FAMILY HISTORY: Noncontributory. REVIEW OF SYSTEMS: As per HPI. Other systems negative. On examination, the patient is awake, comfortable. He is not in any acute distress. Blood pressure is 157/86, heart rate 77 per minute. He is afebrile. Examination of the heart S1 and S2. Examination of the lungs: Bilateral breath sounds are heard. ABDOMEN: Soft, nontender. Examination of lower extremities shows edema 1+ bilaterally with chronic skin changes. [employer] exam is grossly intact. Patient is moving all 4 extremities. Labs show potassium of 4.2, sodium 142, hemoglobin 9.7, creatinine 10.6. ASSESSMENT: 1. End-stage renal disease on hemodialysis on a Saturday, Saturday, Saturday schedule. 2. Nausea and vomiting secondary to diabetic gastroparesis ( ) gastroenteritis as patient had some diarrhea too. 3. Hypertension, partly volume sensitive. 4. Anemia of chronic disease. PLAN: We will schedule for hemodialysis today. Patient will be dialyzed again tomorrow which can be done as outpatient if he is discharged. Otherwise he will be scheduled in the hospital. Thank you for this consultation. We will continue to follow the patient with you during his hospitalization.
--- NOTE | 2016-07-16 11:11 | PN ---
DATE OF SERVICE: 07/15/2016 This 40-year-old gentleman was admitted to the hospital with abdominal pain, nausea, vomiting, diarrhea is being closely monitored. No chest pain. No palpitations. No fever. On exam, alert and oriented times three. Pulse is 77. Blood pressure 157/83. Respiratory rate 18. Temperature 98.6. Pulse ox 94% on room air. HEENT: Conjunctivae normal. NECK: No jugular venous distention. CARDIOVASCULAR: S1, S2 muffled. No S3, no S4. RESPIRATORY: Breath sounds diminished at the bases. A few rhonchi. No crackles. ABDOMEN: Soft, mild diffuse discomfort. LEGS: No edema. No swelling. CENTRAL NERVOUS SYSTEM: No focal deficits. Labs WBC 8.3, hemoglobin 9.7, creatinine 10.6. ASSESSMENT: 1. Abdominal pain, nausea, vomiting, possible acute gastroenteritis. 2. Acute diabetic gastroparesis, acute exacerbation, with unable to keep anything down. 3. Intractable abdominal pain. 4. Chronic renal failure, stage V on hemodialysis secondary to diabetic nephropathy. 5. Diabetes mellitus, type I. 6. History of increased alkaline phosphatase. 7. Anemia of chronic disease. 8. History of noncompliance. 9. Accelerated hypertension. 10. History of brittle diabetes type 1. 11. Chronic pain syndrome. 12. History of cerebrovascular accident, transient ischemic attack. 13. History of gastroesophageal reflux disease. 14. Hypothyroidism. 15. History of gastroparesis. 16. History of cardiac catheterization. 17. History of diabetic retinopathy. 18. History of pancreatitis. 19. History of anxiety, depression, not otherwise specified. 20. History of nicotine dependence. 21. History of THC. 22. History of hypothyroidism. 23. FULL CODE. Recommendations and discussion: Recommend to continue current medications. Continue with monitor. Symptomatic treatment. Otherwise, continue to monitor blood sugars closely. Continue hemodialysis. Guarded prognosis because of multiple complex medical issues. Further recommendations to follow.
--- NOTE | 2016-07-16 14:31 | DS ---
DATE OF ADMISSION: 07/14/2016 DATE OF DISCHARGE: 07/15/2016 FINAL DIAGNOSES: 1. Abdominal pain, nausea and vomiting, possible acute gastroenteritis. 2. Acute , acute exacerbation, unable to keep anything down. 3. Intractable abdominal pain. 4. Chronic renal failure, stage V on hemodialysis secondary to diabetic nephropathy. 5. Diabetes mellitus, type I. 6. Increased alkaline phosphatase. 7. Anemia of chronic disease. 8. History of noncompliance. 9. History of accelerated hypertension. 10. History of brittle diabetes type I. 11. Chronic pain syndrome. 12. History of cerebrovascular accident, transient ischemic attack. 13. History of gastroesophageal reflux disease. 14. History of hypothyroidism. 15. History of gastroparesis. 16. History of cardiac catheterization. 17. History of diabetic retinopathy. 18. History of pancreatitis. 19. Anxiety, depression, not otherwise specified. 20. History of nicotine dependence. 21. History of THC. 22. Hypothyroidism. 23. FULL CODE. DISCHARGE DISPOSITION: The patient left the hospital AGAINST MEDICAL ADVICE. HISTORY OF PRESENT ILLNESS: This 40-year-old gentleman with a past medical history of multiple medical problems was being followed by Dr. Onofre in the outpatient setting, abdominal pain, nausea and vomiting, treated symptomatically. Patient condition guarded but however the patient left the hospital AGAINST MEDICAL ADVICE. The patient was seen by nephrology. Prognosis is extremely guarded. Please refer to the previous dictation for further details. MTDD
== END 2016-07-15 16:30 | disposition left against medical advice (07) | DRG 73 ==
LOC: EC 12:50 → 5MS5E 15:42
PROVIDERS: ADMIT Hospitalist; ATTEND Hospitalist
PROC: 5A1D00Z (ICD-10-PCS; principal; 2016-07-14)
DX: E10.43 Type 1 diabetes mellitus with diabetic autonomic (poly)neuropathy (principal); N18.6 End stage renal disease; I13.2 Hypertensive heart and chronic kidney disease with heart failure and with stage 5 chronic kidney disease, or end stage renal disease; E10.21 Type 1 diabetes mellitus with diabetic nephropathy; K52.9 Noninfective gastroenteritis and colitis, unspecified; K31.84 Gastroparesis; E03.9 Hypothyroidism, unspecified; D63.8 Anemia in other chronic diseases classified elsewhere; E10.22 Type 1 diabetes mellitus with diabetic chronic kidney disease; E10.319 Type 1 diabetes mellitus with unspecified diabetic retinopathy without macular edema; F32.9 Major depressive disorder, single episode, unspecified; F41.9 Anxiety disorder, unspecified; G40.909 Epilepsy, unspecified, not intractable, without status epilepticus; G89.4 Chronic pain syndrome; I50.9 Heart failure, unspecified; K21.9 Gastro-esophageal reflux disease without esophagitis; Z79.4 Long term (current) use of insulin; Z79.899 Other long term (current) drug therapy; Z83.3 Family history of diabetes mellitus; Z86.73 Personal history of transient ischemic attack (TIA), and cerebral infarction without residual deficits; Z87.891 Personal history of nicotine dependence; Z88.5 Allergy status to narcotic agent; Z91.19 Patient's noncompliance with other medical treatment and regimen; Z99.2 Dependence on renal dialysis; R74.8 Abnormal levels of other serum enzymes
CPT/HCPCS: 36415; 74000; 80048; 80053; 82009; 82150; 83036; 83690; 85025; 85610; 85730; 87324; 90935; 96361; 96374; 96375; 99284; 99285

== ENCOUNTER 2016-07-27 12:02 | Emergency (ER) | payer MEDICARE, OTHER ==
[2016-07-27] MEDS ORDERED: ONDANSETRON 4 MG/2 ML VIAL IVP STA (13:29)
[2016-07-27] MEDS ORDERED: HYDROmorphone 1 MG/ML 1 ML SYRINGE IVP STA (13:29)
[2016-07-27] MEDS ORDERED: SODIUM CHLORIDE 0.9% 1,000 ML IV STA ×2 (13:29)
[2016-07-27] MEDS ORDERED: cloNIDine 0.2 MG/24HR PATCH 1 PATCH PATCH TRANSDERM STA (13:30)
--- NOTE | 2016-07-27 13:33 | ED ---
General Adult HPI - General Chief complaint: Abdominal Pain Stated complaint: abdominal pain Time Seen by Provider: 07/27/16 13:26 Source: patient, RN notes reviewed Mode of arrival: ambulatory Limitations: no limitations - History of Present Illness Initial comments: Patient's 40-year-old male with multiple visits to the emergency room for symptoms of nausea vomiting. Does admit that symptoms started 3 days ago. States still having pain in the epigastric area. States consistent with symptoms that he's had in the past with his gastroparesis. He is a dialysis patient is post ago on Wednesdays and Fridays. He states he did miss his dialysis today. Patient denies any recent fever, chills, shortness of breath , chest pain, back pain,numbness or tingling, dysuria or hematuria, constipation or diarrhea, headaches or visual changes, or any other complaints. - Related Data Home Medications Medication Instructions Recorded Confirmed LORazepam [Ativan] 1 mg PO DAILY PRN 06/06/14 07/27/16 Carvedilol [Coreg] 25 mg PO BID 07/10/14 07/27/16 amLODIPine BESYLATE [Amlodipine 10 mg PO DAILY 06/24/15 07/27/16 Besylate] Cinacalcet HCl [Sensipar] 60 mg PO HS 10/31/15 07/27/16 Ondansetron Odt [Zofran ODT] 4 mg PO BID PRN 12/11/15 07/27/16 Insulin Glargine [Lantus] 12 unit SQ HS 01/12/16 07/27/16 Folic Acid-Vit B Complex-Vit C 1 cap PO DAILY 01/25/16 07/27/16 [Nephrocaps] Cyclobenzaprine [Flexeril] 10 mg PO TID PRN 02/20/16 07/27/16 INSULIN LISPRO (humaLOG) [humaLOG See Protocol SQ AC-TID 02/20/16 07/27/16 (formulary)] Omeprazole [PriLOSEC] 20 mg PO DAILY 02/20/16 07/27/16 HYDROmorphone [Dilaudid] 2 mg PO DAILY PRN 03/28/16 07/27/16 hydrALAZINE HCL [Apresoline] 100 mg PO TID 03/28/16 07/27/16 Lisinopril [Lisinopril] 5 mg PO DAILY 06/13/16 07/27/16 Calcium Acetate [Phoslo] 667 mg PO DAILY 07/13/16 07/27/16 Diphenoxylate HCl/Atropine 1 tab PO Q8H PRN 07/13/16 07/27/16 [Lomotil 2.5-0.025 mg Tablet] Famotidine [Pepcid] 20 mg PO DAILY 07/13/16 07/27/16 diphenhydrAMINE HCL [Benadryl] 25 mg PO TID PRN 07/14/16 07/27/16 Previous Rx's Medication Instructions Recorded cloNIDine HCL [Catapres] 0.2 mg PO TID tab 02/20/16 Allergies Allergy/AdvReac Type Severity Reaction Status Date / Time codeine Allergy Rash/Hives Verified 07/14/16 15:51 metoclopramide HCl AdvReac Muscle Verified 07/14/16 15:51 [From Reglan] Spasms morphine AdvReac Increases Verified 07/14/16 15:51 Pain Review of Systems ROS Statement: Those systems with pertinent positive or pertinent negative responses have been documented in the HPI. ROS Other: All systems not noted in ROS Statement are negative. Past Medical History Past Medical History: Chest Pain / Angina, Heart Failure, CVA/TIA, Diabetes Mellitus, Dialysis, Eye Disorder, GERD/Reflux, Hypertension, Renal Disease, Seizure Disorder, Thyroid Disorder Additional Past Medical History / Comment(s): Chronic renal failure stage IV, hemodialysis M/W/FR -last done 2 days ago, past peritoneal dialysis with peritonitis, gastroparesis, cyclic vomiting, chronic abdominal pain, pancreatitis, IDDM type I brittle, heart murmur, heat stroke-no residual, diabetic retinopathy bilaterally, retinal detachment with surgery, hypothyroid, hiatal hernia, sinusitis, bronchitis, chronic back pain, anemia, last seizure in 2015. History of Any Multi-Drug Resistant Organisms: None Reported Past Surgical History: Cholecystectomy, Heart Catheterization, Hernia Repair Additional Past Surgical History / Comment(s): bilateral retinal reattachment sx , hemodialysis catheter in Feb 2013, lt arm fistual, L inguinal hernia, 2009 cardiac cath. Past Anesthesia/Blood Transfusion Reactions: No Reported Reaction Past Psychological History: Anxiety, Depression Additional Psychological History / Comment(s): Pt has his mother living with him. He uses no assistive device. He drives. Smoking Status: Never smoker Past Alcohol Use History: None Reported Additional Past Alcohol Use History / Comment(s): STARTED SMOKING AT AGE 18 SMOKED SOCIALLY AND QUIT 1998 Past Drug Use History: None Reported Additional Drug Use History / Comment(s): PAST medical Marijuana use in high school. - Past Family History Father History Unknown: Yes Mother History Unknown: Yes Family Medical History: COPD Additional Family Medical History / Comment(s): Mother has never smoked. Mother' s brother had diabetes and multiple sclerosis. Brother(s) Family Medical History: Diabetes Mellitus Additional Family Medical History / Comment(s): multiple sclerosis General Exam - General Exam Comments Initial Comments: General: The patient is awake and alert, in no distress, and does not appear acutely ill. Eye: Pupils are equal, round and reactive to light, extra-ocular movements are intact. No nystagmus. There is normal conjunctiva bilaterally. No signs of icterus. Ears, nose, mouth and throat: There are moist mucous membranes and no oral lesions. Neck: The neck is supple, there is no tenderness or JVD. Cardiovascular: There is a regular rate and rhythm. No murmur, rub or gallop is appreciated. Respiratory: Lungs are clear to auscultation, respirations are non-labored, breath sounds are equal. No wheezes, stridor, rales, or rhonchi. Gastrointestinal: Normal appearance. Normal bowel sounds. Abdomen soft on palpation. Patient does have tenderness in the epigastric. No rebound tenderness. No guarding. Musculoskeletal: Normal ROM, no tenderness. Strength 5/5. Sensation intact. Pulses equal bilaterally 2+. Neurological: A&O x 3. CN II-XII intact, There are no obvious motor or sensory deficits. Coordination appears grossly intact. Speech is normal. Skin: Skin is warm and dry and no rashes or lesions are noted. Psychiatric: Cooperative, appropriate mood & affect, normal judgment. Limitations: no limitations Course Vital Signs 07/27/16 07/27/16 07/27/16 12:30 13:57 14:30 Temperature 98.2 F 97.2 F L Pulse Rate 90 90 88 Respiratory 18 20 16 Rate Blood Pressure 218/93 226/113 200/108 O2 Sat by Pulse 98 99 99 Oximetry 07/27/16 07/27/16 15:00 15:14 Temperature 98.2 F Pulse Rate 88 87 Respiratory 16 18 Rate Blood Pressure 170/90 188/96 O2 Sat by Pulse 96 96 Oximetry Medical Decision Making - Medical Decision Making Patient reexamined at this time as showing no signs of distress or sleeping in the stretcher. Patient's abdomen soft nontender. He states is feeling much better here in emergency room. Patient admits his dialysis today. Creatinine is elevated. He states he may dialysis tomorrow. She will be discharged home advised to return for any other concerns. - Lab Data Result diagrams: 07/27/16 14:21 07/27/16 14:21 Lab Results 07/27/16 07/27/16 Range/Units 14:21 14:21 WBC 7.0 (3.8-10.6) k/uL RBC 4.33 (4.30-5.90) m/uL Hgb 13.5 D (13.0-17.5) gm/dL Hct 43.5 (39.0-53.0) % MCV 100.4 H D (80.0-100.0) fL MCH 31.1 (25.0-35.0) pg MCHC 31.0 (31.0-37.0) g/dL RDW 18.5 H (11.5-15.5) % Plt Count 207 (150-450) k/uL Neutrophils % 74 % Lymphocytes % 9 % Monocytes % 8 % Eosinophils % 5 % Basophils % 1 % Neutrophils # 5.2 (1.3-7.7) k/uL Lymphocytes # 0.6 L (1.0-4.8) k/uL Monocytes # 0.6 (0-1.0) k/uL Eosinophils # 0.3 (0-0.7) k/uL Basophils # 0.1 (0-0.2) k/uL Hypochromasia Slight Anisocytosis Slight Macrocytosis Moderate Sodium 141 (137-145) mmol/L Potassium 4.2 (3.5-5.1) mmol/L Chloride 93 L (98-107) mmol/L Carbon Dioxide 28 (22-30) mmol/L Anion Gap 20 mmol/L BUN 41 H (9-20) mg/dL Creatinine 9.10 H* (0.66-1.25) mg/dL Est GFR (MDRD) Af Amer 8 (>60 ml/min/1.73 sqM) Est GFR (MDRD) Non-Af 7 (>60 ml/min/1.73 sqM) Glucose 540 H* (74-99) mg/dL Calcium 9.7 (8.4-10.2) mg/dL Total Bilirubin 1.1 (0.2-1.3) mg/dL AST 21 (17-59) U/L ALT 36 (21-72) U/L Alkaline Phosphatase 190 H (38-126) U/L Total Protein 8.5 H (6.3-8.2) g/dL Albumin 4.8 (3.5-5.0) g/dL Amylase 92 (30-110) U/L Lipase 189 (23-300) U/L Acetone, Qual Negative (Negative) Disposition Clinical Impression: Nausea & vomiting, Chronic kidney failure Disposition: HOME SELF-CARE Condition: Good Instructions: Acute Nausea and Vomiting (ED) Additional Instructions: Please go to dialysis tomorrow. Please follow-up with family doctor in the next 2 days of symptoms have not improved. Please return to emergency room if the symptoms increase or worsen or for any other concerns. Referrals: Kala Onofre MD [Primary Care Provider] - 1-2 days Time of Disposition: 15:45
[2016-07-27] MEDS ORDERED: BENZOCAINE SPRAY 100 APPLIC/CAN ONE (14:11)
[2016-07-27 14:58] LABS: Anisocytosis Slight; Basophils # (A) 0.1 k/uL (0-0.2); Basophils % (A) 1 %; CH 30.8; CHCM 30.9; Eosinophils # (A) 0.3 k/uL (0-0.7); Eosinophils % (A) 5 %; HCT 43.5 % (39.0-53.0); HDW 2.69; Hypochromasia Slight; Luc % (Auto) 3; Lymphocytes # (A) 0.6 k/uL (1.0-4.8); Lymphocytes % (A) 9 %; MCH 31.1 pg (25.0-35.0); Macrocytosis Moderate; Mean Platelet Volume 8.2; Monocytes # (A) 0.6 k/uL (0-1.0); Monocytes % (A) 8 %; Neutrophils # (A) 5.2 k/uL (1.3-7.7); Neutrophils % (A) 74 %; RBC 4.33 m/uL (4.30-5.90); RDW 18.5 % (11.5-15.5); WBC (Perox) 6.67
[2016-07-27 15:01] LABS: ALT 36 U/L (21-72); AST 21 U/L (17-59); Alkaline Phosphatase 190 U/L (38-126); Amylase 92 U/L (30-110); Anion Gap 20 mmol/L; Blood Urea Nitrogen 41 mg/dL (9-20); Calcium 9.7 mg/dL (8.4-10.2); Carbon Dioxide 28 mmol/L (22-30); Chloride 93 mmol/L (98-107); Potassium 4.2 mmol/L (3.5-5.1); Sodium 141 mmol/L (137-145); Total Bilirubin 1.1 mg/dL (0.2-1.3); Total Protein 8.5 g/dL (6.3-8.2)
[2016-07-27 15:02] LABS: HGB 13.5 gm/dL (13.0-17.5); MCV 100.4 fL (80.0-100.0)
[2016-07-27 15:28] LABS: Non-African American GFR(MDRD) 7 (>60 ml/min/1.73 sqM)
[2016-07-27 15:29] LABS: Glucose 540 mg/dL (74-99)
[2016-07-27] MEDS ORDERED: ONDANSETRON ODT 4 MG TAB PO STA (16:01)
[2016-07-27 16:17] VITALS: BP 224/103; PULSE 96; RESP 16; TEMP 97.2
== END 2016-07-27 16:13 | disposition home or self-care (01) ==
LOC: EC 12:02
DX: N18.4 Chronic kidney disease, stage 4 (severe) (principal); R11.2 Nausea with vomiting, unspecified; R79.89 Other specified abnormal findings of blood chemistry; R10.13 Epigastric pain; I12.9 Hypertensive chronic kidney disease with stage 1 through stage 4 chronic kidney disease, or unspecified chronic kidney disease; I11.0 Hypertensive heart disease with heart failure; K21.9 Gastro-esophageal reflux disease without esophagitis; E11.22 Type 2 diabetes mellitus with diabetic chronic kidney disease; Z79.4 Long term (current) use of insulin; Z79.899 Other long term (current) drug therapy; Z88.5 Allergy status to narcotic agent; Z88.8 Allergy status to other drugs, medicaments and biological substances; Z86.79 Personal history of other diseases of the circulatory system; Z99.2 Dependence on renal dialysis; Z90.49 Acquired absence of other specified parts of digestive tract
CPT/HCPCS: 99284; 96374; 96375; 96361 ×2; 36415; 80053; 82150; 82009; 83690; 85025; J2405; J1170

== ENCOUNTER 2016-08-12 13:14 | Inpatient (IN) | payer MEDICARE, OTHER ==
[2016-08-12] MEDS ORDERED: MAG HYDROX/AL HYDROX/SIMETH 30 ML, HYOSCYAMINE ELIXIR 10 ML, CIMETIDINE HCL 300 MG, LID... PO STA ×4 (14:29)
[2016-08-12] MEDS ORDERED: SUCRALFATE 1 GM TAB PO STA (14:29)
[2016-08-12] MEDS ORDERED: ONDANSETRON 4 MG/2 ML VIAL IVP STA ×2 (14:29→15:59)
[2016-08-12] MEDS ORDERED: HYDROmorphone 1 MG/ML 1 ML SYRINGE IVP STA ×2 (14:29→15:59)
[2016-08-12 15:20] LABS: Anisocytosis Slight; Basophils # (A) 0.1 k/uL (0-0.2); Basophils % (A) 1 %; CH 29.8; CHCM 30.6; Eosinophils # (A) 0.3 k/uL (0-0.7); Eosinophils % (A) 4 %; HCT 40.1 % (39.0-53.0); HDW 2.44; HGB 12.4 gm/dL (13.0-17.5); Hypochromasia Moderate; Luc # (Auto) 0.17; Luc % (Auto) 2; Lymphocytes # (A) 0.8 k/uL (1.0-4.8); Lymphocytes % (A) 10 %; MCH 30.2 pg (25.0-35.0); MCHC 30.9 g/dL (31.0-37.0); MCV 97.7 fL (80.0-100.0); Macrocytosis Slight; Mean Platelet Volume 8.2; Monocytes # (A) 0.5 k/uL (0-1.0); Monocytes % (A) 6 %; Neutrophils # (A) 6.1 k/uL (1.3-7.7); Neutrophils % (A) 77 %; RDW 16.5 % (11.5-15.5); WBC 7.9 k/uL (3.8-10.6); WBC (Perox) 8.57
[2016-08-12 15:31] LABS: Calcium 9.1 mg/dL (8.4-10.2); Potassium 5.1 mmol/L (3.5-5.1); Total Bilirubin 0.9 mg/dL (0.2-1.3); Total Protein 7.4 g/dL (6.3-8.2)
--- NOTE | 2016-08-12 17:20 | ED ---
Abdominal Pain HPI - General Chief Complaint: Abdominal Pain Stated Complaint: vomiting/diarrhea Source: patient Mode of arrival: ambulatory Limitations: no limitations - History of Present Illness Initial Comments: 40-year-old male with past medical history of heart failure, CVA/TIA, DM, end-stage renal disease on dialysis, GERD, HTN, seizures, thyroid disorder, cholecystectomy, heart catheterizations, and hernia repairs presented for evaluation of epigastric abdominal tenderness. He states having constipation since and last night he took milk of magnesia around 9:30. This resulted in significant amounts of stool as well as nausea and vomiting and the epigastric abdominal pain. He states is better with pressure and the cyclical. He has been unable to find any positions of comfort. He states his consistent with his diabetic gastroparesis and he has had multiple admissions in the past for similar symptoms. - Related Data Home Medications Medication Instructions Recorded Confirmed LORazepam [Ativan] 1 mg PO DAILY PRN 06/06/14 08/12/16 Carvedilol [Coreg] 25 mg PO BID 07/10/14 08/12/16 amLODIPine BESYLATE [Amlodipine 10 mg PO DAILY 06/24/15 08/12/16 Besylate] Cinacalcet HCl [Sensipar] 60 mg PO HS 10/31/15 08/12/16 Ondansetron Odt [Zofran ODT] 4 mg PO BID PRN 12/11/15 08/12/16 Insulin Glargine [Lantus] 12 unit SQ HS 01/12/16 08/12/16 Folic Acid-Vit B Complex-Vit C 1 cap PO DAILY 01/25/16 08/12/16 [Nephrocaps] Cyclobenzaprine [Flexeril] 10 mg PO TID PRN 02/20/16 08/12/16 INSULIN LISPRO (humaLOG) [humaLOG See Protocol SQ AC-TID 02/20/16 08/12/16 (formulary)] Omeprazole [PriLOSEC] 20 mg PO DAILY 02/20/16 08/12/16 HYDROmorphone [Dilaudid] 2 mg PO DAILY PRN 03/28/16 08/12/16 hydrALAZINE HCL [Apresoline] 100 mg PO TID 03/28/16 08/12/16 Lisinopril [Lisinopril] 5 mg PO DAILY 06/13/16 08/12/16 Calcium Acetate [Phoslo] 667 mg PO DAILY 07/13/16 08/12/16 Diphenoxylate HCl/Atropine 1 tab PO Q8H PRN 07/13/16 08/12/16 [Lomotil 2.5-0.025 mg Tablet] Famotidine [Pepcid] 20 mg PO DAILY 07/13/16 08/12/16 diphenhydrAMINE HCL [Benadryl] 25 mg PO TID PRN 07/14/16 08/12/16 Previous Rx's Medication Instructions Recorded cloNIDine HCL [Catapres] 0.2 mg PO TID tab 02/20/16 Allergies Allergy/AdvReac Type Severity Reaction Status Date / Time codeine Allergy Rash/Hives Verified 08/12/16 14:14 metoclopramide HCl AdvReac Muscle Verified 08/12/16 14:14 [From Reglan] Spasms morphine AdvReac Increases Verified 08/12/16 14:14 Pain Review of Systems ROS Statement: Those systems with pertinent positive or pertinent negative responses have been documented in the HPI. ROS Other: All systems not noted in ROS Statement are negative. Constitutional: Denies: fever, chills Eyes: Denies: eye pain, eye discharge ENT: Denies: ear pain, throat pain Respiratory: Denies: cough, dyspnea Cardiovascular: Denies: chest pain, palpitations, dyspnea on exertion Endocrine: Denies: fatigue, heat or cold intolerance Gastrointestinal: Reports: abdominal pain, nausea, vomiting, diarrhea, constipation (Resolved after milk of magnesia) Genitourinary: Denies: urgency, dysuria Musculoskeletal: Denies: back pain, arthralgia Skin: Denies: rash, lesions Neurological: Denies: headache, weakness Psychiatric: Denies: anxiety, depression Hematological/Lymphatic: Denies: easy bleeding, easy bruising Past Medical History Past Medical History: Chest Pain / Angina, Heart Failure, CVA/TIA, Diabetes Mellitus, Dialysis, Eye Disorder, GERD/Reflux, Hypertension, Renal Disease, Seizure Disorder, Thyroid Disorder Additional Past Medical History / Comment(s): Chronic renal failure stage IV, hemodialysis M/W/FR -last done 2 days ago, past peritoneal dialysis with peritonitis, gastroparesis, cyclic vomiting, chronic abdominal pain, pancreatitis, IDDM type I brittle, heart murmur, heat stroke-no residual, diabetic retinopathy bilaterally, retinal detachment with surgery, hypothyroid, hiatal hernia, sinusitis, bronchitis, chronic back pain, anemia, last seizure in 2016. History of Any Multi-Drug Resistant Organisms: None Reported Past Surgical History: Cholecystectomy, Heart Catheterization, Hernia Repair Additional Past Surgical History / Comment(s): bilateral retinal reattachment sx , hemodialysis catheter in Feb 2013, lt arm fistual, L inguinal hernia, 2009 cardiac cath. Past Anesthesia/Blood Transfusion Reactions: No Reported Reaction Past Psychological History: Anxiety, Depression Smoking Status: Never smoker Past Alcohol Use History: None Reported Past Drug Use History: None Reported - Past Family History Father History Unknown: Yes Mother History Unknown: Yes Family Medical History: COPD Additional Family Medical History / Comment(s): Mother has never smoked. Mother' s brother had diabetes and multiple sclerosis. Brother(s) Family Medical History: Diabetes Mellitus Additional Family Medical History / Comment(s): multiple sclerosis General Exam Limitations: no limitations General appearance: alert, in distress Head exam: Present: atraumatic, normocephalic, normal inspection Eye exam: Present: normal appearance, PERRL, EOMI. Absent: scleral icterus, conjunctival injection, periorbital swelling ENT exam: Present: normal exam, mucous membranes moist Neck exam: Present: normal inspection. Absent: tenderness, meningismus, lymphadenopathy Respiratory exam: Present: normal lung sounds bilaterally. Absent: respiratory distress, wheezes, rales, rhonchi, stridor Cardiovascular Exam: Present: regular rate, normal rhythm, normal heart sounds. Absent: systolic murmur, diastolic murmur, rubs, gallop, clicks GI/Abdominal exam: Present: soft, tenderness, normal bowel sounds. Absent: distended, guarding, rebound, rigid Rectal exam: Present: deferred Extremities exam: Present: normal inspection, full ROM, normal capillary refill. Absent: tenderness, pedal edema, joint swelling, calf tenderness Back exam: Present: normal inspection Neurological exam: Present: alert, oriented X3, CN II-XII intact Psychiatric exam: Present: normal affect, normal mood Skin exam: Present: warm, dry, intact, normal color. Absent: rash Course Vital Signs 08/12/16 08/12/16 08/12/16 13:56 14:49 15:20 Temperature 97.4 F L Pulse Rate 96 96 90 Respiratory 22 18 18 Rate Blood Pressure 217/116 210/109 197/95 O2 Sat by Pulse 96 95 99 Oximetry 08/12/16 08/12/16 08/12/16 16:20 16:50 17:52 Temperature 97.8 F Pulse Rate 88 90 90 Respiratory 18 18 18 Rate Blood Pressure 180/06 189/96 169/89 O2 Sat by Pulse 98 98 99 Oximetry Medical Decision Making - Medical Decision Making 40-year-old male who is well-known to this facility and has significant past medical history presented for evaluation of epigastric abdominal pain that he states is consistent with his diabetic gastroparesis. On physical examination the patient is in apparent distress clutching his abdomen which is soft yet tender without peritoneal signs of guarding, rigidity , or rebound. He does have a fistula to his left arm and has dialysis every Saturday and Saturday. He has active nausea and vomiting at the bedside. We'll obtain labs and provide IV fluids, Zofran, and pain control. Although labs revealed no significant abnormalities patient continued to have intractable nausea and vomiting despite repeated medications. His pain had mildly improved. Given his disposition will admit for further treatment and evaluation. Admitting physician requested consult with nephrology and GI both of which were informed of the admission and accepted the consults. Bed request submitted and orders placed. - Lab Data Result diagrams: 08/12/16 15:00 08/12/16 15:00 Lab Results 08/12/16 08/12/16 Range/Units 15:00 15:00 WBC 7.9 (3.8-10.6) k/uL RBC 4.10 L (4.30-5.90) m/uL Hgb 12.4 L (13.0-17.5) gm/dL Hct 40.1 (39.0-53.0) % MCV 97.7 (80.0-100.0) fL MCH 30.2 (25.0-35.0) pg MCHC 30.9 L (31.0-37.0) g/dL RDW 16.5 H (11.5-15.5) % Plt Count 173 (150-450) k/uL Neutrophils % 77 % Lymphocytes % 10 % Monocytes % 6 % Eosinophils % 4 % Basophils % 1 % Neutrophils # 6.1 (1.3-7.7) k/uL Lymphocytes # 0.8 L (1.0-4.8) k/uL Monocytes # 0.5 (0-1.0) k/uL Eosinophils # 0.3 (0-0.7) k/uL Basophils # 0.1 (0-0.2) k/uL Hypochromasia Moderate Anisocytosis Slight Macrocytosis Slight Sodium 144 (137-145) mmol/L Potassium 5.1 (3.5-5.1) mmol/L Chloride 101 (98-107) mmol/L Carbon Dioxide 27 (22-30) mmol/L Anion Gap 16 mmol/L BUN 78 H (9-20) mg/dL Creatinine 8.73 H* (0.66-1.25) mg/dL Est GFR (MDRD) Af Amer 8 (>60 ml/min/1.73 sqM) Est GFR (MDRD) Non-Af 7 (>60 ml/min/1.73 sqM) Glucose 170 H (74-99) mg/dL Calcium 9.1 (8.4-10.2) mg/dL Total Bilirubin 0.9 (0.2-1.3) mg/dL AST 33 (17-59) U/L ALT 42 (21-72) U/L Alkaline Phosphatase 144 H (38-126) U/L Total Protein 7.4 (6.3-8.2) g/dL Albumin 4.2 (3.5-5.0) g/dL Lipase 253 (23-300) U/L 08/13/16 03:04 Normal sinus rhythm with biatrial enlargement and ventricular rate of 88, TJ 184, QRS 92, QT/QTC 390/471. Disposition Clinical Impression: Intractable nausea and vomiting, Epigastric abdominal pain, Intractable vomiting Disposition: ADMITTED IP TO THIS [facility] Decision to Admit Reason: Admit from EC Decision Date: 08/12/16 Decision Time: 17:19
[2016-08-12] MEDS ORDERED: NALOXONE 0.4 MG/ML 1 ML VIAL IV PRN (17:21)
[2016-08-12] MEDS ORDERED: CYCLOBENZAPRINE 10 MG TAB PO PRN (17:30)
[2016-08-12] MEDS ORDERED: LORazepam 1 MG TAB PO PRN (17:30)
[2016-08-12] MEDS ORDERED: DIPHENOX-ATROP 2.5-0.025 MG 1 EACH TAB PO PRN (17:30)
[2016-08-12] MEDS ORDERED: INSULIN LISPRO SQ SCH (17:30)
[2016-08-12] MEDS: CARVEDILOL 12.5 MG TAB PO SCH (18:29)
[2016-08-12] MEDS: HYDROmorphone 1 MG/ML 1 ML SYRINGE IV PRN ×2 (18:32→21:26)
[2016-08-12] MEDS: INSULIN LISPRO (humaLOG) 300 UNIT/3 ML VIAL SQ SCH (18:36)
[2016-08-12 18:38] LABS: Glucose,Whole Blood 127 mg/dL (75-99)
[2016-08-12 18:41] VITALS: BMI 21.1
[2016-08-12 18:46] VITALS: RESP 16
[2016-08-12] MEDS ORDERED: CINACALCET 30 MG TAB PO SCH (21:00)
[2016-08-12] MEDS ORDERED: INSULIN GLARGINE 100 UNIT/ML 10 ML VIAL SQ SCH (21:00)
[2016-08-12] MEDS: hydrALAZINE HCL 50 MG TAB PO SCH (21:25)
[2016-08-12] MEDS: cloNIDine HCL 0.2 MG TAB PO SCH (21:25)
[2016-08-12] MEDS: diphenhydrAMINE 25 MG CAP PO PRN (21:25)
[2016-08-12 21:34] LABS: Glucose,Whole Blood 125 mg/dL (75-99)
[2016-08-13] MEDS: ONDANSETRON 4 MG/2 ML VIAL IVP PRN ×2 (00:58→12:16)
[2016-08-13] MEDS: HYDROmorphone 1 MG/ML 1 ML SYRINGE IV PRN ×3 (00:58→15:29)
[2016-08-13 06:57] LABS: Glucose,Whole Blood 87 mg/dL (75-99)
[2016-08-13] MEDS: INSULIN LISPRO (humaLOG) 300 UNIT/3 ML VIAL SQ SCH ×3 (07:29→17:39)
[2016-08-13 07:56] LABS: Anisocytosis Slight; Basophils # (A) 0.1 k/uL (0-0.2); Basophils % (A) 1 %; CH 29.6; CHCM 31.2; Eosinophils # (A) 0.4 k/uL (0-0.7); Eosinophils % (A) 5 %; HCT 37.4 % (39.0-53.0); HGB 12.6 gm/dL (13.0-17.5); Hypochromasia Slight; Luc # (Auto) 0.19; Luc % (Auto) 2; Lymphocytes # (A) 1.1 k/uL (1.0-4.8); Lymphocytes % (A) 13 %; MCH 32.2 pg (25.0-35.0); MCHC 33.7 g/dL (31.0-37.0); MCV 95.3 fL (80.0-100.0); Mean Platelet Volume 8.1; Monocytes # (A) 0.5 k/uL (0-1.0); Monocytes % (A) 6 %; Neutrophils # (A) 5.7 k/uL (1.3-7.7); Neutrophils % (A) 72 %; RBC 3.93 m/uL (4.30-5.90); RDW 16.6 % (11.5-15.5); WBC (Perox) 8.17
[2016-08-13] MEDS: diphenhydrAMINE 25 MG CAP PO PRN (08:02)
[2016-08-13] MEDS: CARVEDILOL 12.5 MG TAB PO SCH ×2 (08:03→17:41)
[2016-08-13] MEDS: cloNIDine HCL 0.2 MG TAB PO SCH ×2 (08:03→15:29)
[2016-08-13] MEDS: hydrALAZINE HCL 50 MG TAB PO SCH ×2 (08:04→15:29)
[2016-08-13 08:07] LABS: Calcium 8.8 mg/dL (8.4-10.2); Magnesium 3.5 mg/dL (1.6-2.3); Phosphorous 5.2 mg/dL (2.5-4.5); Potassium 5.8 mmol/L (3.5-5.1); Total Bilirubin 0.9 mg/dL (0.2-1.3); Total Protein 7.2 g/dL (6.3-8.2)
[2016-08-13 08:32] VITALS: TEMP 97.1
[2016-08-13] MEDS ORDERED: FAMOTIDINE 20 MG TAB PO SCH (09:00)
[2016-08-13] MEDS ORDERED: LISINOPRIL 5 MG TAB PO SCH (09:00)
[2016-08-13] MEDS ORDERED: amLODIPine 10 MG TAB PO SCH (09:00)
[2016-08-13] MEDS ORDERED: PANTOPRAZOLE 40 MG TABLET PO SCH (09:00)
[2016-08-13 11:47] LABS: Glucose,Whole Blood 90 mg/dL (75-99)
[2016-08-13] MEDS: CALCIUM ACETATE 667 MG CAP PO SCH ×2 (12:16→17:41)
--- NOTE | 2016-08-13 12:47 | P.NPCON ---
History of Present Illness - Reason for Consult end stage renal disease - History of Present Illness Reason for consultation: End-stage renal disease History of present illness: Patient is a 40-year-old male seen in renal consultation for end- stage renal disease. He is maintained on hemodialysis on a Saturday schedule for left upper extremity AV fistula. Patient has a long- standing history of insulin-dependent diabetes mellitus. Patient presented to the hospital with abdominal pain along with nausea and vomiting that began after he took a laxative for constipation. He states his blood sugars have been well controlled. He denies any chest pain or shortness of breath. His oral intake is good. Hemodynamically stable. Denies fever or chills. No other complaints at this time. Diarrhea has mostly resolved. Vital signs are stable. General: The patient appeared well nourished and normally developed. HEENT: Head exam is unremarkable. Neck is without jugular venous distension. LUNGS: Lungs are clear to auscultation and percussion. Breath sounds decreased. HEART: Rate and Rhythm are regular. First and second heart sounds normal. No murmurs, rubs or gallops. ABDOMEN: Abdominal exam reveals normal bowel sounds. Non-tender and non- distended. No evidence of peritonitis. EXTREMITITES: No clubbing, cyanosis, or edema. Past Medical History Past Medical History: Chest Pain / Angina, Heart Failure, CVA/TIA, Diabetes Mellitus, Dialysis, Eye Disorder, GERD/Reflux, Hypertension, Renal Disease, Seizure Disorder, Thyroid Disorder Additional Past Medical History / Comment(s): Chronic renal failure stage IV, hemodialysis M/W/FR -last done 2 days ago, past peritoneal dialysis with peritonitis, gastroparesis, cyclic vomiting, chronic abdominal pain, pancreatitis, IDDM type I brittle, heart murmur, heat stroke-no residual, diabetic retinopathy bilaterally, retinal detachment with surgery, hypothyroid, hiatal hernia, sinusitis, bronchitis, chronic back pain, anemia, last seizure in 2015. History of Any Multi-Drug Resistant Organisms: None Reported Past Surgical History: Cholecystectomy, Heart Catheterization, Hernia Repair Additional Past Surgical History / Comment(s): bilateral retinal reattachment sx , hemodialysis catheter in Feb 2013, lt arm fistual, L inguinal hernia, 2009 cardiac cath. Past Anesthesia/Blood Transfusion Reactions: No Reported Reaction Past Psychological History: Anxiety, Depression Smoking Status: Never smoker Past Alcohol Use History: None Reported Past Drug Use History: None Reported - Past Family History Father History Unknown: Yes Mother History Unknown: Yes Family Medical History: COPD Additional Family Medical History / Comment(s): Mother has never smoked. Mother' s brother had diabetes and multiple sclerosis. Brother(s) Family Medical History: Diabetes Mellitus Additional Family Medical History / Comment(s): multiple sclerosis Medications and Allergies Home Medications Medication Instructions Recorded Confirmed Type LORazepam [Ativan] 1 mg PO DAILY PRN 06/06/14 08/12/16 History Carvedilol [Coreg] 25 mg PO BID 07/10/14 08/12/16 History amLODIPine BESYLATE [Amlodipine 10 mg PO DAILY 06/24/15 08/12/16 History Besylate] Cinacalcet HCl [Sensipar] 60 mg PO HS 10/31/15 08/12/16 History Ondansetron Odt [Zofran ODT] 4 mg PO BID PRN 12/11/15 08/12/16 History Insulin Glargine [Lantus] 12 unit SQ HS 01/12/16 08/12/16 History Folic Acid-Vit B Complex-Vit C 1 cap PO DAILY 01/25/16 08/12/16 History [Nephrocaps] Cyclobenzaprine [Flexeril] 10 mg PO TID PRN 02/20/16 08/12/16 History INSULIN LISPRO (humaLOG) [humaLOG See Protocol SQ AC-TID 02/20/16 08/12/16 History (formulary)] Omeprazole [PriLOSEC] 20 mg PO DAILY 02/20/16 08/12/16 History HYDROmorphone [Dilaudid] 2 mg PO DAILY PRN 03/28/16 08/12/16 History hydrALAZINE HCL [Apresoline] 100 mg PO TID 03/28/16 08/12/16 History Lisinopril [Lisinopril] 5 mg PO DAILY 06/13/16 08/12/16 History Calcium Acetate [Phoslo] 667 mg PO DAILY 07/13/16 08/12/16 History Diphenoxylate HCl/Atropine 1 tab PO Q8H PRN 07/13/16 08/12/16 History [Lomotil 2.5-0.025 mg Tablet] Famotidine [Pepcid] 20 mg PO DAILY 07/13/16 08/12/16 History diphenhydrAMINE HCL [Benadryl] 25 mg PO TID PRN 07/14/16 08/12/16 History Allergies Allergy/AdvReac Type Severity Reaction Status Date / Time codeine Allergy Rash/Hives Verified 08/12/16 14:14 metoclopramide HCl AdvReac Muscle Verified 08/12/16 14:14 [From Reglan] Spasms morphine AdvReac Increases Verified 08/12/16 14:14 Pain Physical Exam Vitals: Vital Signs Temp Pulse Pulse Resp BP BP Pulse Ox 08/13/16 07:00 97.1 F L 72 16 163/93 91 L 08/12/16 23:17 90 08/12/16 23:00 97.5 F L 90 16 204/105 93 L 08/12/16 18:45 98.7 F 94 16 198/100 94 L 08/12/16 17:52 97.8 F 90 18 169/89 99 08/12/16 16:50 90 18 189/96 98 08/12/16 16:20 88 18 180/06 98 08/12/16 15:20 90 18 197/95 99 08/12/16 14:49 96 18 210/109 95 08/12/16 13:56 97.4 F L 96 22 217/116 96 Intake and Output 08/12/16 08/13/16 08/13/16 22:59 06:59 14:59 Other: # Voids 2 1 Weight 61.235 kg 63.5 kg Results - Lab Results Most recent lab results Calcium 8.8 mg/dL (8.4-10.2) 08/13/16 07:20 Phosphorus 5.2 mg/dL (2.5-4.5) H 08/13/16 07:20 Magnesium 3.5 mg/dL (1.6-2.3) H 08/13/16 07:20 08/13/16 07:20 08/13/16 07:20 Assessment and Plan Plan: Assessment: #1. End-stage renal disease maintained on hemodialysis on a Saturday schedule via left upper extremity AV fistula. #2. Abdominal pain along with diarrhea that appears to be due to the use of laxative. #3. Chronic kidney disease mineral bone disease. #4. Insulin-dependent diabetes mellitus. #5. Hyperkalemia secondary to chronic kidney disease. #6. Hypertension with chronic kidney disease. Better controlled now. Plan: Hemodialysis today with goal 2-3 L ultrafiltration. Maintain PhosLo with meals. Encourage oral intake as tolerated. Continue Sensipar. Home antihypertensives have been resumed. May use of IV labetalol as needed for systolic blood pressure greater than 160. For the consultation. I will continue to follow the patient with you during his hospital stay.
--- NOTE | 2016-08-13 15:29 | CONS ---
DATE OF CONSULTATION: 08/13/2016 REASON FOR CONSULTATION: Nausea, vomiting. HISTORY OF PRESENT ILLNESS: The patient is a 40-year-old pleasant, white male known to me from his multiple previous hospitalizations. He has long-standing history of diabetes mellitus, diabetic gastroparesis. Was admitted to the hospital with acute onset of severe nausea, vomiting, abdominal pain and constipation. Patient apparently felt constipated, took a bottle of magnesium citrate and immediately after that he started having cramping lower abdominal pain followed by at least 5 or 6 episodes of nausea and vomiting. He came into the emergency room and subsequently was admitted to the hospital for further evaluation. He was given some Zofran and IV Protonix and his symptoms are completely subsided. In fact, this morning he is on a regular diet, he is tolerating well. He does have history of renal disease on hemodialysis, scheduled for today. PAST MEDICAL HISTORY: Significant for diabetes mellitus, hypertension, end-stage renal disease on hemodialysis, diabetic retinopathy, seizure disorder, hypothyroidism. PAST SURGICAL HISTORY: Dialysis catheter placement, AV fistula, cholecystectomy, hernia repair, bilateral retinal detachment, inguinal hernia repair. Medications at home include Ativan, Coreg, amlodipine, Sensipar, Zofran, Lantus, Nephro-Caps, Flexeril, Humalog, Dilaudid, Prilosec, Apresoline, lisinopril, PhosLo, Lomotil, Pepcid and Benadryl. Allergies to REGLAN, CODEINE, morphine. SOCIAL HISTORY: Chronic smoker in the past. No alcohol use. FAMILY HISTORY: Unremarkable. Mother has COPD, brother has diabetes mellitus and multiple sclerosis. REVIEW OF SYSTEMS: CARDIOPULMONARY: He denies any chest pain or shortness of breath. GENITOURINARY: No dysuria or hematuria. MUSCULOSKELETAL: Unremarkable. SKIN: Unremarkable. ENDOCRINE: Unremarkable. PSYCHIATRIC: Unremarkable. NEUROLOGY: Unremarkable. ENT/VISION: Unremarkable. CONSTITUTIONAL: No recent weight loss. No fever, chills, night sweats. On physical examination, he appears comfortable, in no apparent distress. Vitals signs are stable. Blood pressure 169/89, pulse rate 90, temperature 98. HEENT examination unremarkable, conjunctivae are pink, sclerae nonicteric. Oral cavity, no lesions. NECK: No JVD or lymph node enlargement. CHEST: Clear to auscultation. HEART: Regular rate and rhythm. ABDOMEN: Soft. There was mild tenderness in the left lower quadrant area, but bowel sounds are positive. No organomegaly. EXTREMITIES: No pedal edema. SKIN: No rashes. NEURO: Alert and oriented x3. No focal deficits. Labs at the time of admission to the hospital: WBC 7.9, hemoglobin 12.4, platelets are normal. BUN is 89, creatinine 9.36. Amylase and lipase are normal. IMPRESSION: 1. Acute onset of nausea, vomiting, abdominal pain and severe constipation for the last one day duration. The symptoms happen after he took a bottle of magnesium citrate yesterday, but now symptoms have completely subsided. He is in fact on a regular diet, tolerating well. 2. End-stage renal disease on hemodialysis. 3. History of diabetic gastroparesis. 4. Long-standing history of diabetes mellitus, that has been uncontrolled. RECOMMENDATIONS: 1. Presently on IV Zofran and Protonix and doing well. 2. Continue to advance diet as tolerated. 3. No need for any endoscopic intervention. 4. Will sign off as patient is going to be discharged home today. Thank you for this consultation.
[2016-08-13 16:14] VITALS: BP 144/77; PULSE 68
[2016-08-13 17:17] LABS: Glucose,Whole Blood 89 mg/dL (75-99)
--- NOTE | 2016-08-13 19:39 | P.HPIM ---
History of Present Illness H&P Date: 08/13/16 (dc summary as well) Chief Complaint: Intractable nausea vomiting 40-year-old gentleman with history of diabetes type 1 diabetic gastroparesis ESRD and hemodialysis comes in the hospital after taking milk of magnesium for constipation. Patient states to have significant amount of bowel movements prior to onset of his symptoms. Thereafter patient noted severe epigastric pain with intractable nausea vomiting. Patient has been diagnosed with Alana gastroparesis and has been maintained with small meals Patient has received symptomatic treatment and IV fluids and has significantly improved Patient undergoes hemodialysis via left arm fistula Saturday Barren evaluation patient denies having any headaches blurry vision nausea vomiting chest pain difficulty breathing diarrhea at this time Review of Systems All systems: negative (Noted in HPI) Past Medical History Past Medical History: Chest Pain / Angina, Heart Failure, CVA/TIA, Diabetes Mellitus, Dialysis, Eye Disorder, GERD/Reflux, Hypertension, Renal Disease, Seizure Disorder, Thyroid Disorder Additional Past Medical History / Comment(s): Chronic renal failure stage IV, hemodialysis M/W/FR -last done 2 days ago, past peritoneal dialysis with peritonitis, gastroparesis, cyclic vomiting, chronic abdominal pain, pancreatitis, IDDM type I brittle, heart murmur, heat stroke-no residual, diabetic retinopathy bilaterally, retinal detachment with surgery, hypothyroid, hiatal hernia, sinusitis, bronchitis, chronic back pain, anemia, last seizure in 2015. History of Any Multi-Drug Resistant Organisms: None Reported Past Surgical History: Cholecystectomy, Heart Catheterization, Hernia Repair Additional Past Surgical History / Comment(s): bilateral retinal reattachment sx , hemodialysis catheter in Feb 2013, lt arm fistual, L inguinal hernia, 2009 cardiac cath. Past Anesthesia/Blood Transfusion Reactions: No Reported Reaction Past Psychological History: Anxiety, Depression Smoking Status: Never smoker Past Alcohol Use History: None Reported Past Drug Use History: None Reported - Past Family History Father History Unknown: Yes Mother History Unknown: Yes Family Medical History: COPD Additional Family Medical History / Comment(s): Mother has never smoked. Mother' s brother had diabetes and multiple sclerosis. Brother(s) Family Medical History: Diabetes Mellitus Additional Family Medical History / Comment(s): multiple sclerosis Medications and Allergies Home Medications Medication Instructions Recorded Confirmed Type LORazepam [Ativan] 1 mg PO DAILY PRN 06/06/14 08/12/16 History Carvedilol [Coreg] 25 mg PO BID 07/10/14 08/12/16 History amLODIPine BESYLATE [Amlodipine 10 mg PO DAILY 06/24/15 08/12/16 History Besylate] Cinacalcet HCl [Sensipar] 60 mg PO HS 10/31/15 08/12/16 History Ondansetron Odt [Zofran ODT] 4 mg PO BID PRN 12/11/15 08/12/16 History Insulin Glargine [Lantus] 12 unit SQ HS 01/12/16 08/12/16 History Folic Acid-Vit B Complex-Vit C 1 cap PO DAILY 01/25/16 08/12/16 History [Nephrocaps] Cyclobenzaprine [Flexeril] 10 mg PO TID PRN 02/20/16 08/12/16 History INSULIN LISPRO (humaLOG) [humaLOG See Protocol SQ AC-TID 02/20/16 08/12/16 History (formulary)] Omeprazole [PriLOSEC] 20 mg PO DAILY 02/20/16 08/12/16 History HYDROmorphone [Dilaudid] 2 mg PO DAILY PRN 03/28/16 08/12/16 History hydrALAZINE HCL [Apresoline] 100 mg PO TID 03/28/16 08/12/16 History Lisinopril 5 mg PO DAILY 06/13/16 08/12/16 History Calcium Acetate [PhosLo] 667 mg PO DAILY 07/13/16 08/12/16 History Diphenoxylate HCl/Atropine 1 tab PO Q8H PRN 07/13/16 08/12/16 History [Lomotil 2.5-0.025 mg Tablet] Famotidine [Pepcid] 20 mg PO DAILY 07/13/16 08/12/16 History diphenhydrAMINE HCL [Benadryl] 25 mg PO TID PRN 07/14/16 08/12/16 History Allergies Allergy/AdvReac Type Severity Reaction Status Date / Time codeine Allergy Rash/Hives Verified 08/12/16 14:14 metoclopramide HCl AdvReac Muscle Verified 08/12/16 14:14 [From Reglan] Spasms morphine AdvReac Increases Verified 08/12/16 14:14 Pain Physical Exam Vitals: Vital Signs Temp Pulse Resp BP Pulse Ox 08/13/16 15:00 97.1 F L 68 16 144/77 91 L 08/13/16 07:00 97.1 F L 72 16 163/93 91 L 08/12/16 23:17 90 08/12/16 23:00 97.5 F L 90 16 204/105 93 L Intake and Output 08/13/16 08/13/16 08/13/16 06:59 14:59 22:59 Intake Total 1200 Balance 1200 Intake: Oral 1200 Other: # Voids 1 Weight 63.5 kg Physical exam Gen. appearance oriented 3 in no distress Neck is supple no JVD Lungs good air entry clear to auscultation no rhonchi or wheezing Heart S1-S2 heard regular rate and rhythm no murmurs appreciated Abdomen is soft nontender no organomegaly bowel sounds are intact Neurologically cranial nerves II-12 grossly intact no focal motor or sensory deficits noted Skin no abnormalities appreciated or graft palpable thrill in the left upper arm Results CBC & Chem 7: 08/13/16 07:20 08/13/16 07:20 Labs: Abnormal Lab Results - Last 24 Hours (Table) 08/12/16 08/13/16 08/13/16 Range/Units 21:30 07:20 07:20 RBC 3.93 L (4.30-5.90) m/uL Hgb 12.6 L (13.0-17.5) gm/dL Hct 37.4 L (39.0-53.0) % RDW 16.6 H (11.5-15.5) % Potassium 5.8 H (3.5-5.1) mmol/L BUN 89 H* (9-20) mg/dL Creatinine 9.36 H* (0.66-1.25) mg/dL POC Glucose (mg/dL) 125 H (75-99) mg/dL Phosphorus 5.2 H (2.5-4.5) mg/dL Magnesium 3.5 H (1.6-2.3) mg/dL Alkaline Phosphatase 133 H (38-126) U/L Assessment and Plan Plan: #1 acute exacerbation of diabetic gastroparesis #2 constipation #3 diabetes mellitus type 1 #4 ESRD and hemodialysis #5 essential hypertension #6 bone mineral renal disease #7 history of seizure disorder #8 history of TIA Plan Patient is improved symptomatically patient can be discharged home up on hemodialysis Did discuss following small frequent meals. In regards to bowel regimen which is likely an exacerbating factor here did discuss using senna regularly and using Colace or MiraLAX intermittently Patient verbalized understanding the following recommendations will be discharged home to follow up with patient's primary care in 1 week
== END 2016-08-13 20:27 | disposition home or self-care (01) | DRG 73 ==
LOC: EC 13:14 → 4MS4W 17:21
PROVIDERS: ADMIT Internal Medicine; ATTEND Internal Medicine
PROC: 5A1D00Z (ICD-10-PCS; principal; 2016-08-13)
DX: E10.43 Type 1 diabetes mellitus with diabetic autonomic (poly)neuropathy (principal); N18.6 End stage renal disease; I13.2 Hypertensive heart and chronic kidney disease with heart failure and with stage 5 chronic kidney disease, or end stage renal disease; E10.22 Type 1 diabetes mellitus with diabetic chronic kidney disease; I50.9 Heart failure, unspecified; E87.5 Hyperkalemia; K31.84 Gastroparesis; E10.319 Type 1 diabetes mellitus with unspecified diabetic retinopathy without macular edema; K59.00 Constipation, unspecified; G40.909 Epilepsy, unspecified, not intractable, without status epilepticus; F41.9 Anxiety disorder, unspecified; G89.29 Other chronic pain; E03.9 Hypothyroidism, unspecified; K21.9 Gastro-esophageal reflux disease without esophagitis; F32.9 Major depressive disorder, single episode, unspecified; Z99.2 Dependence on renal dialysis; Z87.891 Personal history of nicotine dependence; Z90.49 Acquired absence of other specified parts of digestive tract; Z86.73 Personal history of transient ischemic attack (TIA), and cerebral infarction without residual deficits; Z79.4 Long term (current) use of insulin; Z79.899 Other long term (current) drug therapy; Z88.5 Allergy status to narcotic agent; Z88.8 Allergy status to other drugs, medicaments and biological substances; Z83.3 Family history of diabetes mellitus
CPT/HCPCS: 36415; 80053; 83690; 83735; 84100; 85025; 90935; 93005; 96374; 96375; 96376; 99285

== ENCOUNTER 2016-08-19 13:22 | Emergency (ER) | payer MEDICARE, OTHER ==
[2016-08-19 13:26] VITALS: PULSE 83; RESP 20; TEMP 98.1
[2016-08-19] MEDS ORDERED: PANTOPRAZOLE 40 MG/10 ML VIAL IVP STA (14:04)
[2016-08-19] MEDS ORDERED: ONDANSETRON 4 MG/2 ML VIAL IVP STA (14:04)
[2016-08-19] MEDS ORDERED: SODIUM CHLORIDE 0.9% 1,000 ML IV STA (14:04)
--- NOTE | 2016-08-19 14:04 | ED ---
General Adult HPI - General Chief complaint: Abdominal Pain Stated complaint: nausea/vomiting/abdominal pain Time Seen by Provider: 08/19/16 13:58 Source: patient, family, RN notes reviewed Mode of arrival: wheelchair Limitations: no limitations - History of Present Illness Initial comments: Patient is a 40-year-old male presenting to the emergency department requesting Dilaudid. Patient has chronic abdominal pain. Patient ran out of his Zofran and has been vomiting again. No constipation or diarrhea. Abdominal discomfort is diffuse and persistent. No fevers. - Related Data Home Medications Medication Instructions Recorded Confirmed LORazepam [Ativan] 1 mg PO DAILY PRN 06/06/14 08/19/16 Carvedilol [Coreg] 25 mg PO BID 07/10/14 08/19/16 amLODIPine BESYLATE [Amlodipine 10 mg PO DAILY 06/24/15 08/19/16 Besylate] Cinacalcet HCl [Sensipar] 60 mg PO HS 10/31/15 08/19/16 Ondansetron Odt [Zofran ODT] 4 mg PO BID PRN 12/11/15 08/19/16 Insulin Glargine [Lantus] 12 unit SQ HS 01/12/16 08/19/16 Folic Acid-Vit B Complex-Vit C 1 cap PO DAILY 01/25/16 08/19/16 [Nephrocaps] Cyclobenzaprine [Flexeril] 10 mg PO TID PRN 02/20/16 08/19/16 INSULIN LISPRO (humaLOG) [humaLOG See Protocol SQ AC-TID 02/20/16 08/19/16 (formulary)] Omeprazole [PriLOSEC] 20 mg PO DAILY 02/20/16 08/19/16 HYDROmorphone [Dilaudid] 2 mg PO DAILY PRN 03/28/16 08/19/16 hydrALAZINE HCL [Apresoline] 100 mg PO TID 03/28/16 08/19/16 Lisinopril 5 mg PO DAILY 06/13/16 08/19/16 Calcium Acetate [PhosLo] 667 mg PO DAILY 07/13/16 08/19/16 Diphenoxylate HCl/Atropine 1 tab PO Q8H PRN 07/13/16 08/19/16 [Lomotil 2.5-0.025 mg Tablet] Famotidine [Pepcid] 20 mg PO DAILY 07/13/16 08/19/16 diphenhydrAMINE HCL [Benadryl] 25 mg PO TID PRN 07/14/16 08/19/16 Previous Rx's Medication Instructions Recorded cloNIDine HCL [Catapres] 0.2 mg PO TID tab 02/20/16 Allergies Allergy/AdvReac Type Severity Reaction Status Date / Time codeine Allergy Rash/Hives Verified 08/19/16 13:45 metoclopramide HCl AdvReac Muscle Verified 08/19/16 13:45 [From Reglan] Spasms morphine AdvReac Increases Verified 08/19/16 13:45 Pain Review of Systems ROS Statement: Those systems with pertinent positive or pertinent negative responses have been documented in the HPI. ROS Other: All systems not noted in ROS Statement are negative. Constitutional: Denies: fever Eyes: Denies: eye pain ENT: Denies: ear pain Respiratory: Denies: cough Cardiovascular: Denies: chest pain Endocrine: Denies: fatigue Gastrointestinal: Reports: abdominal pain, nausea, vomiting Genitourinary: Denies: dysuria Musculoskeletal: Denies: back pain Skin: Denies: rash Neurological: Denies: headache Past Medical History Past Medical History: Chest Pain / Angina, Heart Failure, CVA/TIA, Diabetes Mellitus, Dialysis, Eye Disorder, GERD/Reflux, Hypertension, Renal Disease, Seizure Disorder, Thyroid Disorder Additional Past Medical History / Comment(s): Chronic renal failure stage IV, hemodialysis M/W/FR -last done 2 days ago, past peritoneal dialysis with peritonitis, gastroparesis, cyclic vomiting, chronic abdominal pain, pancreatitis, IDDM type I brittle, heart murmur, heat stroke-no residual, diabetic retinopathy bilaterally, retinal detachment with surgery, hypothyroid, hiatal hernia, sinusitis, bronchitis, chronic back pain, anemia, last seizure in 2015. History of Any Multi-Drug Resistant Organisms: None Reported Past Surgical History: Cholecystectomy, Heart Catheterization, Hernia Repair Additional Past Surgical History / Comment(s): bilateral retinal reattachment sx , hemodialysis catheter in Feb 2013, lt arm fistual, L inguinal hernia, 2009 cardiac cath. Past Anesthesia/Blood Transfusion Reactions: No Reported Reaction Past Psychological History: Anxiety, Depression Smoking Status: Never smoker Past Alcohol Use History: None Reported Past Drug Use History: None Reported - Past Family History Father History Unknown: Yes Mother History Unknown: Yes Family Medical History: COPD Additional Family Medical History / Comment(s): Mother has never smoked. Mother' s brother had diabetes and multiple sclerosis. Brother(s) Family Medical History: Diabetes Mellitus Additional Family Medical History / Comment(s): multiple sclerosis General Exam Limitations: no limitations General appearance: alert Head exam: Present: atraumatic Eye exam: Present: normal appearance, PERRL ENT exam: Present: normal oropharynx Neck exam: Present: normal inspection Respiratory exam: Present: normal lung sounds bilaterally Cardiovascular Exam: Present: regular rate, normal rhythm Expanded Peripheral pulses: 2+: Dorsalis Pedis (R), Dorsalis Pedis (L) GI/Abdominal exam: Present: soft, tenderness (Diffuse abdominal tenderness), hyperactive bowel sounds. Absent: distended, guarding, rebound, rigid, pulsatile mass Extremities exam: Present: normal inspection Neurological exam: Present: alert Psychiatric exam: Present: normal mood Skin exam: Present: normal color Course Vital Signs 08/19/16 13:24 Temperature 98.1 F Pulse Rate 83 Respiratory 20 Rate O2 Sat by Pulse 96 Oximetry - Reevaluation(s) Reevaluation #1: 08/19/16 14:33 Patient has again refused x-ray. 08/19/16 14:59 Patient is requesting discharge but advised that we do need to check acetone and have blood sugar improved. Medical Decision Making - Medical Decision Making Patient left AMA and did not wait for improvement of blood sugar or further instructions/reevaluation or discharge instructions - Lab Data Result diagrams: 08/19/16 13:45 08/19/16 13:45 Lab Results 08/19/16 08/19/16 08/19/16 Range/Units 13:45 13:45 13:45 WBC 8.5 (3.8-10.6) k/uL RBC 4.23 L (4.30-5.90) m/uL Hgb 12.5 L (13.0-17.5) gm/dL Hct 39.6 (39.0-53.0) % MCV 93.6 (80.0-100.0) fL MCH 29.6 (25.0-35.0) pg MCHC 31.6 (31.0-37.0) g/dL RDW 16.4 H (11.5-15.5) % Plt Count 156 (150-450) k/uL Neutrophils % 80 % Lymphocytes % 9 % Monocytes % 4 % Eosinophils % 3 % Basophils % 1 % Neutrophils # 6.8 (1.3-7.7) k/uL Lymphocytes # 0.8 L (1.0-4.8) k/uL Monocytes # 0.3 (0-1.0) k/uL Eosinophils # 0.3 (0-0.7) k/uL Basophils # 0.1 (0-0.2) k/uL Anisocytosis Slight PT 10.8 (9.0-12.0) sec INR 1.1 (<1.1) APTT 26.6 (22.0-30.0) sec Sodium 141 (137-145) mmol/L Potassium 5.4 H (3.5-5.1) mmol/L Chloride 97 L (98-107) mmol/L Carbon Dioxide 23 (22-30) mmol/L Anion Gap 21 mmol/L BUN 67 H (9-20) mg/dL Creatinine 9.22 H* (0.66-1.25) mg/dL Est GFR (MDRD) Af Amer 8 (>60 ml/min/1.73 sqM) Est GFR (MDRD) Non-Af 6 (>60 ml/min/1.73 sqM) Glucose 466 H* (74-99) mg/dL Calcium 9.2 (8.4-10.2) mg/dL Total Bilirubin 1.0 (0.2-1.3) mg/dL AST 30 (17-59) U/L ALT 56 (21-72) U/L Alkaline Phosphatase 231 H (38-126) U/L Total Protein 8.6 H (6.3-8.2) g/dL Albumin 4.9 (3.5-5.0) g/dL Amylase 82 (30-110) U/L Lipase 205 (23-300) U/L Acetone, Qual (Negative) 08/19/16 Range/Units 13:45 WBC (3.8-10.6) k/uL RBC (4.30-5.90) m/uL Hgb (13.0-17.5) gm/dL Hct (39.0-53.0) % MCV (80.0-100.0) fL MCH (25.0-35.0) pg MCHC (31.0-37.0) g/dL RDW (11.5-15.5) % Plt Count (150-450) k/uL Neutrophils % % Lymphocytes % % Monocytes % % Eosinophils % % Basophils % % Neutrophils # (1.3-7.7) k/uL Lymphocytes # (1.0-4.8) k/uL Monocytes # (0-1.0) k/uL Eosinophils # (0-0.7) k/uL Basophils # (0-0.2) k/uL Anisocytosis PT (9.0-12.0) sec INR (<1.1) APTT (22.0-30.0) sec Sodium (137-145) mmol/L Potassium (3.5-5.1) mmol/L Chloride (98-107) mmol/L Carbon Dioxide (22-30) mmol/L Anion Gap mmol/L BUN (9-20) mg/dL Creatinine (0.66-1.25) mg/dL Est GFR (MDRD) Af Amer (>60 ml/min/1.73 sqM) Est GFR (MDRD) Non-Af (>60 ml/min/1.73 sqM) Glucose (74-99) mg/dL Calcium (8.4-10.2) mg/dL Total Bilirubin (0.2-1.3) mg/dL AST (17-59) U/L ALT (21-72) U/L Alkaline Phosphatase (38-126) U/L Total Protein (6.3-8.2) g/dL Albumin (3.5-5.0) g/dL Amylase (30-110) U/L Lipase (23-300) U/L Acetone, Qual Negative (Negative) Disposition Clinical Impression: Vomiting, Chronic abdominal pain Disposition: Left Against Medical Advice Condition: Undetermined Referrals: Kala Onofre MD [Primary Care Provider] - 1-2 days
[2016-08-19 14:22] LABS: Anisocytosis Slight; Basophils # (A) 0.1 k/uL (0-0.2); Basophils % (A) 1 %; CH 29.3; CHCM 31.4; Eosinophils # (A) 0.3 k/uL (0-0.7); Eosinophils % (A) 3 %; HCT 39.6 % (39.0-53.0); HGB 12.5 gm/dL (13.0-17.5); Luc # (Auto) 0.17; Luc % (Auto) 2; Lymphocytes # (A) 0.8 k/uL (1.0-4.8); Lymphocytes % (A) 9 %; MCH 29.6 pg (25.0-35.0); MCHC 31.6 g/dL (31.0-37.0); MCV 93.6 fL (80.0-100.0); Mean Platelet Volume 8.4; Monocytes # (A) 0.3 k/uL (0-1.0); Monocytes % (A) 4 %; Neutrophils # (A) 6.8 k/uL (1.3-7.7); Neutrophils % (A) 80 %; RBC 4.23 m/uL (4.30-5.90); RDW 16.4 % (11.5-15.5); WBC 8.5 k/uL (3.8-10.6); WBC (Perox) 8.64
[2016-08-19 14:27] LABS: Calcium 9.2 mg/dL (8.4-10.2); INR 1.1 (<1.1); Partial Thromboplastin Time 26.6 sec (22.0-30.0); Potassium 5.4 mmol/L (3.5-5.1); Prothrombin Time 10.8 sec (9.0-12.0); Total Protein 8.6 g/dL (6.3-8.2)
[2016-08-19] MEDS ORDERED: INSULIN REGULAR 100 UNIT/ML VIAL IV ONE (14:35)
== END 2016-08-19 15:11 | disposition left against medical advice (07) ==
LOC: EC 13:22
DX: R11.10 Vomiting, unspecified (principal); R10.84 Generalized abdominal pain; G89.29 Other chronic pain; E10.22 Type 1 diabetes mellitus with diabetic chronic kidney disease; I13.0 Hypertensive heart and chronic kidney disease with heart failure and stage 1 through stage 4 chronic kidney disease, or unspecified chronic kidney disease; I50.9 Heart failure, unspecified; N18.4 Chronic kidney disease, stage 4 (severe); K21.9 Gastro-esophageal reflux disease without esophagitis; E10.43 Type 1 diabetes mellitus with diabetic autonomic (poly)neuropathy; K31.84 Gastroparesis; E03.9 Hypothyroidism, unspecified; E10.319 Type 1 diabetes mellitus with unspecified diabetic retinopathy without macular edema; Z53.29 Procedure and treatment not carried out because of patient's decision for other reasons; Z90.49 Acquired absence of other specified parts of digestive tract; Z99.2 Dependence on renal dialysis; Z88.5 Allergy status to narcotic agent; Z88.8 Allergy status to other drugs, medicaments and biological substances; Z79.4 Long term (current) use of insulin; Z79.899 Other long term (current) drug therapy
CPT/HCPCS: 99284; 96374; 96375; 96361; 36415; 80053; 82150; 82009; 83690; 85025; 85610; 85730; J2405; C9113

== ENCOUNTER 2016-08-27 19:03 | Emergency (ER) | payer MEDICARE, OTHER ==
[2016-08-27 19:15] VITALS: TEMP 97.7
[2016-08-27] MEDS ORDERED: LABETALOL 5 MG/ML VIAL MDV IVP STA (19:31)
[2016-08-27] MEDS ORDERED: ONDANSETRON 4 MG/2 ML VIAL IVP STA (19:34)
[2016-08-27] MEDS ORDERED: HYDROmorphone 1 MG/ML 1 ML SYRINGE IVP STA (19:34)
[2016-08-27 20:14] VITALS: RESP 16
--- NOTE | 2016-08-27 20:30 | ED ---
Abdominal Pain [facility] - General Chief Complaint: Abdominal Pain Stated Complaint: abdominal pain Time Seen by Provider: 08/27/16 19:22 Source: patient Mode of arrival: ambulatory Limitations: no limitations - History of Present Illness Initial Comments: Joaquim is a 40-year-old insulin-dependent diabetic with end-stage renal disease on dialysis Saturday who presents to the emergency department for evaluation of epigastric abdominal pain. Patient is very well-known to the department for his frequent bouts of cyclic vomiting, abdominal pain secondary to gastroparesis. Patient is known to be noncompliant with treatment of diabetes as well as dialysis. Patient presents to the emergency Department today with complaint of epigastric abdominal pain, identical in character and location to previous episodes of gastroparesis. Patient reports that on Saturday he attended dialysis, however he was having diarrhea and had to be taken out of dialysis early. He reports that he did not attend dialysis this morning because he was still having frequent stooling. The patient reports that this afternoon he developed epigastric abdominal pain, nausea and nonbloody nonbilious vomitus. The patient reports he has tried to take home medications but vomited up his hydralazine as well as his Dilaudid. He reports he is out of Zofran ODT. Patient reports the pain is epigastric, stabbing, constant in nature. Identical to previous episodes. He has no relieving factors. Patient states that usually the pain resolves with a dose of Dilaudid. Patient reports the pain comes in waves, but has been more frequent this afternoon than usual. Patient denies any history of pancreatitis. He reports minimal by mouth intake today due to abdominal pain. He reports that his diarrhea has resolved since this morning. Patient reports that he ran out of his home Dilaudid and Zofran ODT and cannot see his primary care physician until tomorrow for repeat prescription. MD Complaint: abdominal pain Location: epigastric Radiation: none Migration to: no migration Severity: severe Severity scale (1-10): 10 Quality: cramping, stabbing, aching, fullness, sharp Consistency: constant Improves With: nothing Context: other (History of gastroparesis) Associated Symptoms: nausea, vomiting, diarrhea Treatments Prior to Arrival: prescription analgesics (By mouth Dilaudid) - Related Data Home Medications Medication Instructions Recorded Confirmed LORazepam [Ativan] 1 mg PO DAILY PRN 06/06/14 08/27/16 Carvedilol [Coreg] 25 mg PO BID 07/10/14 08/27/16 amLODIPine BESYLATE [Amlodipine 10 mg PO DAILY 06/24/15 08/27/16 Besylate] Cinacalcet HCl [Sensipar] 60 mg PO HS 10/31/15 08/27/16 Ondansetron Odt [Zofran ODT] 4 mg PO BID PRN 12/11/15 08/27/16 Insulin Glargine [Lantus] 12 unit SQ HS 01/12/16 08/27/16 Folic Acid-Vit B Complex-Vit C 1 cap PO DAILY 01/25/16 08/27/16 [Nephrocaps] Cyclobenzaprine [Flexeril] 10 mg PO HS PRN 02/20/16 08/27/16 INSULIN LISPRO (humaLOG) [humaLOG See Protocol SQ AC-TID 02/20/16 08/27/16 (formulary)] Omeprazole [PriLOSEC] 20 mg PO DAILY 02/20/16 08/27/16 HYDROmorphone [Dilaudid] 2 mg PO DAILY PRN 03/28/16 08/27/16 hydrALAZINE HCL [Apresoline] 100 mg PO TID 03/28/16 08/27/16 Lisinopril 5 mg PO DAILY 06/13/16 08/27/16 Calcium Acetate [PhosLo] 667 mg PO DAILY 07/13/16 08/27/16 Diphenoxylate HCl/Atropine 1 tab PO Q8H PRN 07/13/16 08/27/16 [Lomotil 2.5-0.025 mg Tablet] Famotidine [Pepcid] 20 mg PO DAILY PRN 07/13/16 08/27/16 diphenhydrAMINE HCL [Benadryl] 25 mg PO TID PRN 07/14/16 08/27/16 Previous Rx's Medication Instructions Recorded cloNIDine HCL [Catapres] 0.2 mg PO TID tab 02/20/16 Ondansetron Odt [Zofran Odt] 4 mg PO Q8HR PRN #12 tab 08/27/16 Allergies Allergy/AdvReac Type Severity Reaction Status Date / Time codeine Allergy Rash/Hives Verified 08/27/16 20:18 metoclopramide HCl AdvReac Muscle Verified 08/27/16 20:18 [From Reglan] Spasms morphine AdvReac Increases Verified 08/27/16 20:18 Pain Review of Systems ROS Statement: Those systems with pertinent positive or pertinent negative responses have been documented in the HPI. ROS Other: All systems not noted in ROS Statement are negative. Constitutional: Reports: weakness (Generalized weakness). Denies: fever, chills Eyes: Denies: vision change ENT: Denies: hearing loss Respiratory: Denies: dyspnea Cardiovascular: Denies: chest pain, palpitations Endocrine: Reports: fatigue Gastrointestinal: Reports: abdominal pain, nausea, vomiting, diarrhea Musculoskeletal: Denies: back pain Skin: Denies: change in color Neurological: Denies: headache, weakness, numbness, paresthesias, confusion Psychiatric: Reports: anxiety, depression Hematological/Lymphatic: Reports: easy bleeding, easy bruising Past Medical History Past Medical History: Chest Pain / Angina, Heart Failure, CVA/TIA, Diabetes Mellitus, Dialysis, Eye Disorder, GERD/Reflux, Hypertension, Renal Disease, Seizure Disorder, Thyroid Disorder Additional Past Medical History / Comment(s): Chronic renal failure stage IV, hemodialysis M/W/FR -last done 08/24, past peritoneal dialysis with peritonitis , gastroparesis, cyclic vomiting, chronic abdominal pain, pancreatitis, IDDM type I brittle, heart murmur, heat stroke-no residual, diabetic retinopathy bilaterally, retinal detachment with surgery, hypothyroid, hiatal hernia, sinusitis, bronchitis, chronic back pain, anemia, last seizure in 2015. History of Any Multi-Drug Resistant Organisms: None Reported Past Surgical History: Cholecystectomy, Heart Catheterization, Hernia Repair Additional Past Surgical History / Comment(s): bilateral retinal reattachment sx , hemodialysis catheter in Feb 2013, lt arm fistual, L inguinal hernia, 2009 cardiac cath. Past Anesthesia/Blood Transfusion Reactions: No Reported Reaction Past Psychological History: Anxiety, Depression Smoking Status: Never smoker Past Alcohol Use History: None Reported Past Drug Use History: None Reported - Past Family History Father History Unknown: Yes Mother History Unknown: Yes Family Medical History: COPD Additional Family Medical History / Comment(s): Mother has never smoked. Mother' s brother had diabetes and multiple sclerosis. Brother(s) Family Medical History: Diabetes Mellitus Additional Family Medical History / Comment(s): multiple sclerosis General Exam Limitations: no limitations General appearance: alert, anxious, other (Chronically ill-appearing, appears older than stated age.) Head exam: Present: atraumatic, normocephalic, normal inspection Eye exam: Present: PERRL ENT exam: Present: normal exam, mucous membranes moist Respiratory exam: Absent: respiratory distress Cardiovascular Exam: Present: regular rate, normal rhythm GI/Abdominal exam: Present: soft, tenderness, normal bowel sounds. Absent: distended, guarding, rebound, rigid Rectal exam: Present: deferred Extremities exam: Present: full ROM. Absent: tenderness Neurological exam: Present: alert, oriented X3 Psychiatric exam: Present: agitated, anxious Skin exam: Present: warm, dry Course Vital Signs 08/27/16 08/27/16 08/27/16 19:12 20:11 21:30 Temperature 97.7 F 97.7 F Pulse Rate 88 72 79 Respiratory 18 16 16 Rate Blood Pressure 240/122 204/100 169/93 O2 Sat by Pulse 94 L 97 98 Oximetry - Reevaluation(s) Reevaluation #1: Reevaluated, IV was established in the right shoulder however blood was unable to be obtained. During reevaluation blood was being obtained via butterfly in the hand. Patient appeared to be in less distress, he was resting comfortably talking to his mother about his childhood. 08/27/16 20:28 08/27/16 20:28 Reevaluation #2: Labs were reviewed, elevated BUN and creatinine consistent with patient being noncompliant with dialysis as results were discussed with the patient was now resting comfortably in bed. Patient states he is feeling well and is agreeable for plan with discharge. Patient states he will attend dialysis tomorrow. A short requesting a prescription for Zofran ODT. 08/27/16 21:22 Medical Decision Making - Medical Decision Making Seen and examined, history is obtained from patient and previous medical record Vital signs were reviewed, revealed significant hypertension consistent with patient's history of not having dialysis 3 days IV labetalol as well as for hypertension IV Zofran for antiemetics, IV Dilaudid for analgesia Patient reported significant improvement in his symptoms after medications Blood pressure improved to 179 systolic Patient resting comfortably in bed Labs elevated BUN and creatinine, however normal potassium An extensive conversation with the patient regarding the importance of him attending dialysis as scheduled. Patient stated that due to his history of noncompliance with his dialysis schedule he can only get dialysis on his off days with Dr. George. No was provided for the patient to take to dialysis indicating that he needs dialysis tomorrow. Time of discharge patient reported significant improvement in his abdominal pain , resolution of his nausea. Patient expressed understanding and agreement with the plan to be discharged home with a prescription for Zofran ODT. Patient is to attend dialysis tomorrow morning and then follow up with his primary care physician to discuss a refill of his by mouth Dilaudid. All questions pertaining to care were answered and patient was discharged home with his mother. - Lab Data Result diagrams: 08/27/16 20:17 08/27/16 20:17 Lab Results 08/27/16 08/27/16 Range/Units 20:17 20:17 WBC 8.7 (3.8-10.6) k/uL RBC 3.65 L (4.30-5.90) m/uL Hgb 10.8 L (13.0-17.5) gm/dL Hct 33.0 L (39.0-53.0) % MCV 90.4 (80.0-100.0) fL MCH 29.6 (25.0-35.0) pg MCHC 32.7 (31.0-37.0) g/dL RDW 16.2 H (11.5-15.5) % Plt Count 166 (150-450) k/uL Neutrophils % 79 % Lymphocytes % 9 % Monocytes % 5 % Eosinophils % 4 % Basophils % 1 % Neutrophils # 6.9 (1.3-7.7) k/uL Lymphocytes # 0.8 L (1.0-4.8) k/uL Monocytes # 0.5 (0-1.0) k/uL Eosinophils # 0.4 (0-0.7) k/uL Basophils # 0.1 (0-0.2) k/uL Anisocytosis Slight Sodium 138 (137-145) mmol/L Potassium 5.1 (3.5-5.1) mmol/L Chloride 98 (98-107) mmol/L Carbon Dioxide 20 L (22-30) mmol/L Anion Gap 20 mmol/L BUN 84 H* (9-20) mg/dL Creatinine 11.18 H* (0.66-1.25) mg/dL Est GFR (MDRD) Af Amer 6 (>60 ml/min/1.73 sqM) Est GFR (MDRD) Non-Af 5 (>60 ml/min/1.73 sqM) Glucose 228 H (74-99) mg/dL Calcium 8.9 (8.4-10.2) mg/dL Total Bilirubin 1.2 (0.2-1.3) mg/dL AST 35 (17-59) U/L ALT 57 (21-72) U/L Alkaline Phosphatase 203 H (38-126) U/L Total Protein 7.3 (6.3-8.2) g/dL Albumin 4.2 (3.5-5.0) g/dL Lipase 167 (23-300) U/L Disposition Clinical Impression: Gastroparesis due to secondary diabetes Disposition: HOME SELF-CARE Instructions: Acute Nausea and Vomiting (ED), Gastroparesis (ED) Additional Instructions: You need to have dialysis tomorrow, August 28 Prescriptions: Ondansetron Odt [Zofran Odt] 4 mg PO Q8HR PRN #12 tab PRN Reason: Nausea Referrals: Kala Onofre MD [Primary Care Provider] - 1-2 days
[2016-08-27 20:34] LABS: Anisocytosis Slight; Basophils # (A) 0.1 k/uL (0-0.2); Basophils % (A) 1 %; CH 29.3; CHCM 32.5; Eosinophils # (A) 0.4 k/uL (0-0.7); Eosinophils % (A) 4 %; HGB 10.8 gm/dL (13.0-17.5); Luc # (Auto) 0.15; Luc % (Auto) 2; Lymphocytes # (A) 0.8 k/uL (1.0-4.8); Lymphocytes % (A) 9 %; MCH 29.6 pg (25.0-35.0); MCHC 32.7 g/dL (31.0-37.0); MCV 90.4 fL (80.0-100.0); Mean Platelet Volume 8.7; Monocytes # (A) 0.5 k/uL (0-1.0); Monocytes % (A) 5 %; Neutrophils # (A) 6.9 k/uL (1.3-7.7); Neutrophils % (A) 79 %; RBC 3.65 m/uL (4.30-5.90); RDW 16.2 % (11.5-15.5); WBC 8.7 k/uL (3.8-10.6); WBC (Perox) 9.39
[2016-08-27 20:57] LABS: Calcium 8.9 mg/dL (8.4-10.2); Potassium 5.1 mmol/L (3.5-5.1); Total Bilirubin 1.2 mg/dL (0.2-1.3); Total Protein 7.3 g/dL (6.3-8.2)
[2016-08-27 21:31] VITALS: BP 169/93; PULSE 79
== END 2016-08-27 21:36 | disposition home or self-care (01) ==
LOC: EC 19:03
DX: E13.43 Other specified diabetes mellitus with diabetic autonomic (poly)neuropathy (principal); K31.84 Gastroparesis; R79.89 Other specified abnormal findings of blood chemistry; F41.9 Anxiety disorder, unspecified; R45.1 Restlessness and agitation; R11.2 Nausea with vomiting, unspecified; R19.7 Diarrhea, unspecified; I13.0 Hypertensive heart and chronic kidney disease with heart failure and stage 1 through stage 4 chronic kidney disease, or unspecified chronic kidney disease; I50.9 Heart failure, unspecified; N18.4 Chronic kidney disease, stage 4 (severe); K21.9 Gastro-esophageal reflux disease without esophagitis; Z79.899 Other long term (current) drug therapy; Z79.4 Long term (current) use of insulin; Z88.5 Allergy status to narcotic agent; Z88.8 Allergy status to other drugs, medicaments and biological substances; Z99.2 Dependence on renal dialysis; Z83.3 Family history of diabetes mellitus; Z86.79 Personal history of other diseases of the circulatory system; Z90.49 Acquired absence of other specified parts of digestive tract
CPT/HCPCS: 36415; 80053; 83690; 85025; 99284; 96374; 96375 ×2; J2405; J1170

== ENCOUNTER 2016-09-02 16:16 | Emergency (ER) | payer MEDICARE, OTHER ==
[2016-09-02] MEDS ORDERED: HYDROmorphone 1 MG/ML 1 ML SYRINGE IVP STA (16:27)
[2016-09-02] MEDS ORDERED: ONDANSETRON 4 MG/2 ML VIAL IVP STA (16:27)
[2016-09-02] MEDS ORDERED: SODIUM CHLORIDE 0.9% 1,000 ML IV STA ×2 (16:27)
[2016-09-02] MEDS ORDERED: LORazepam 2 MG/ML SYRINGE IM STA (17:28)
[2016-09-02 17:30] LABS: Anisocytosis Slight; Basophils # (A) 0.1 k/uL (0-0.2); Basophils % (A) 1 %; CH 29.8; CHCM 32.4; Eosinophils # (A) 0.3 k/uL (0-0.7); Eosinophils % (A) 4 %; HCT 33.3 % (39.0-53.0); HDW 2.22; HGB 10.7 gm/dL (13.0-17.5); Luc # (Auto) 0.17; Luc % (Auto) 2; Lymphocytes # (A) 0.9 k/uL (1.0-4.8); Lymphocytes % (A) 10 %; MCH 29.5 pg (25.0-35.0); MCV 92.1 fL (80.0-100.0); Mean Platelet Volume 8.2; Monocytes # (A) 0.4 k/uL (0-1.0); Monocytes % (A) 5 %; Neutrophils # (A) 6.8 k/uL (1.3-7.7); Neutrophils % (A) 78 %; RBC 3.61 m/uL (4.30-5.90); RDW 16.2 % (11.5-15.5); WBC 8.7 k/uL (3.8-10.6); WBC (Perox) 8.53
[2016-09-02] MEDS ORDERED: cloNIDine 0.3 MG/24HR PATCH 1 PATCH PATCH TRANSDERM STA (17:32)
--- NOTE | 2016-09-02 17:40 | ED ---
General Adult HPI - General Chief complaint: Abdominal Pain Stated complaint: Nausea/Vomiting/Abd Pain Time Seen by Provider: 09/02/16 16:26 Source: patient, RN notes reviewed, old records reviewed Mode of arrival: ambulatory Limitations: no limitations - History of Present Illness Initial comments: Patient is a 41-year-old male who presents emergency room today with chief complaint of increased abdominal pain with nausea vomiting that started yesterday. He does admit to a history of dialysis. States he was Saturday's. States she's been going to his dialysis. States pain increased yesterday. States consistent with chronic abdominal pain that is had in the past. Does admit that he is trying to see his GI doctor later next week. He denies any other complaints associated symptoms. Patient denies any recent fever, chills, shortness of breath, chest pain, back pain, numbness or tingling, dysuria or hematuria, constipation or diarrhea, headaches or visual changes, or any other complaints. - Related Data Home Medications Medication Instructions Recorded Confirmed LORazepam [Ativan] 1 mg PO DAILY PRN 06/06/14 09/02/16 Carvedilol [Coreg] 25 mg PO BID 07/10/14 09/02/16 amLODIPine BESYLATE [Amlodipine 10 mg PO DAILY 06/24/15 09/02/16 Besylate] Cinacalcet HCl [Sensipar] 60 mg PO HS 10/31/15 09/02/16 Insulin Glargine [Lantus] 12 unit SQ HS 01/12/16 09/02/16 Folic Acid-Vit B Complex-Vit C 1 cap PO DAILY 01/25/16 09/02/16 [Nephrocaps] Cyclobenzaprine [Flexeril] 10 mg PO HS PRN 02/20/16 09/02/16 INSULIN LISPRO (humaLOG) [humaLOG See Protocol SQ AC-TID 02/20/16 09/02/16 (formulary)] Omeprazole [PriLOSEC] 20 mg PO DAILY 02/20/16 09/02/16 HYDROmorphone [Dilaudid] 2 mg PO DAILY PRN 03/28/16 09/02/16 hydrALAZINE HCL [Apresoline] 100 mg PO TID 03/28/16 09/02/16 Lisinopril 5 mg PO DAILY 06/13/16 09/02/16 Calcium Acetate [PhosLo] 667 mg PO DAILY 07/13/16 09/02/16 Diphenoxylate HCl/Atropine 1 tab PO Q8H PRN 07/13/16 09/02/16 [Lomotil 2.5-0.025 mg Tablet] Famotidine [Pepcid] 20 mg PO DAILY PRN 07/13/16 09/02/16 diphenhydrAMINE HCL [Benadryl] 25 mg PO TID PRN 07/14/16 09/02/16 Previous Rx's Medication Instructions Recorded cloNIDine HCL [Catapres] 0.2 mg PO TID tab 02/20/16 Ondansetron Odt [Zofran Odt] 4 mg PO Q8HR PRN #12 tab 08/27/16 Allergies Allergy/AdvReac Type Severity Reaction Status Date / Time codeine Allergy Rash/Hives Verified 09/02/16 16:35 metoclopramide HCl AdvReac Muscle Verified 09/02/16 16:35 [From Reglan] Spasms morphine AdvReac Increases Verified 09/02/16 16:35 Pain Review of Systems ROS Statement: Those systems with pertinent positive or pertinent negative responses have been documented in the HPI. ROS Other: All systems not noted in ROS Statement are negative. Past Medical History Past Medical History: Chest Pain / Angina, Heart Failure, CVA/TIA, Diabetes Mellitus, Dialysis, Eye Disorder, GERD/Reflux, Hypertension, Renal Disease, Seizure Disorder, Thyroid Disorder Additional Past Medical History / Comment(s): Chronic renal failure stage IV, hemodialysis M/W/FR -last done 08/24, past peritoneal dialysis with peritonitis , gastroparesis, cyclic vomiting, chronic abdominal pain, pancreatitis, IDDM type I brittle, heart murmur, heat stroke-no residual, diabetic retinopathy bilaterally, retinal detachment with surgery, hypothyroid, hiatal hernia, sinusitis, bronchitis, chronic back pain, anemia, last seizure in 2015. History of Any Multi-Drug Resistant Organisms: None Reported Past Surgical History: Cholecystectomy, Heart Catheterization, Hernia Repair Additional Past Surgical History / Comment(s): bilateral retinal reattachment sx , hemodialysis catheter in Feb 2013, lt arm fistual, L inguinal hernia, 2010 cardiac cath. Past Anesthesia/Blood Transfusion Reactions: No Reported Reaction Past Psychological History: Anxiety, Depression Smoking Status: Never smoker Past Alcohol Use History: None Reported Past Drug Use History: None Reported - Past Family History Father History Unknown: Yes Mother History Unknown: Yes Family Medical History: COPD Additional Family Medical History / Comment(s): Mother has never smoked. Mother' s brother had diabetes and multiple sclerosis. Brother(s) Family Medical History: Diabetes Mellitus Additional Family Medical History / Comment(s): multiple sclerosis General Exam - General Exam Comments Initial Comments: General: The patient is awake and alert, in no distress, and does not appear acutely ill. Eye: Pupils are equal, round and reactive to light, extra-ocular movements are intact. No nystagmus. There is normal conjunctiva bilaterally. No signs of icterus. Ears, nose, mouth and throat: There are moist mucous membranes and no oral lesions. Neck: The neck is supple, there is no tenderness or JVD. Cardiovascular: There is a regular rate and rhythm. No murmur, rub or gallop is appreciated. Respiratory: Lungs are clear to auscultation, respirations are non-labored, breath sounds are equal. No wheezes, stridor, rales, or rhonchi. Gastrointestinal: No appearance abdomen. Normal bowel sounds. Abdomen soft on palpation. Musculoskeletal: Normal ROM, no tenderness. Strength 5/5. Sensation intact. Pulses equal bilaterally 2+. Neurological: A&O x 3. CN II-XII intact, There are no obvious motor or sensory deficits. Coordination appears grossly intact. Speech is normal. Skin: Skin is warm and dry and no rashes or lesions are noted. Psychiatric: Cooperative, appropriate mood & affect, normal judgment. Limitations: no limitations Course Vital Signs 09/02/16 09/02/16 16:20 17:56 Temperature 98.0 F Pulse Rate 89 77 Respiratory 22 20 Rate Blood Pressure 209/106 210/99 O2 Sat by Pulse 99 97 Oximetry Medical Decision Making - Medical Decision Making She reexamined at this time shows no signs of distress. Does admit that he is feeling better here in emergency room. Patient labs been reviewed. Does show elevated BUN/creatinine similar to previous findings. Patient's hemoglobin 10.7 today also given similar to recent findings. Patient will be discharged home advised follow-up tomorrow. Advised return to emergency room if symptoms increase or worsen or for any other concerns. - Lab Data Result diagrams: 09/02/16 17:00 09/02/16 17:00 Lab Results 09/02/16 09/02/16 Range/Units 17:00 17:00 WBC 8.7 (3.8-10.6) k/uL RBC 3.61 L (4.30-5.90) m/uL Hgb 10.7 L (13.0-17.5) gm/dL Hct 33.3 L (39.0-53.0) % MCV 92.1 (80.0-100.0) fL MCH 29.5 (25.0-35.0) pg MCHC 32.0 (31.0-37.0) g/dL RDW 16.2 H (11.5-15.5) % Plt Count 181 (150-450) k/uL Neutrophils % 78 % Lymphocytes % 10 % Monocytes % 5 % Eosinophils % 4 % Basophils % 1 % Neutrophils # 6.8 (1.3-7.7) k/uL Lymphocytes # 0.9 L (1.0-4.8) k/uL Monocytes # 0.4 (0-1.0) k/uL Eosinophils # 0.3 (0-0.7) k/uL Basophils # 0.1 (0-0.2) k/uL Anisocytosis Slight Sodium 139 (137-145) mmol/L Potassium 5.3 H (3.5-5.1) mmol/L Chloride 94 L (98-107) mmol/L Carbon Dioxide 25 (22-30) mmol/L Anion Gap 20 mmol/L BUN 65 H (9-20) mg/dL Creatinine 9.30 H* (0.66-1.25) mg/dL Est GFR (MDRD) Af Amer 8 (>60 ml/min/1.73 sqM) Est GFR (MDRD) Non-Af 6 (>60 ml/min/1.73 sqM) Glucose 244 H (74-99) mg/dL Calcium 9.4 (8.4-10.2) mg/dL Total Bilirubin 0.8 (0.2-1.3) mg/dL AST 51 (17-59) U/L ALT 92 H (21-72) U/L Alkaline Phosphatase 237 H (38-126) U/L Total Protein 7.0 (6.3-8.2) g/dL Albumin 4.2 (3.5-5.0) g/dL Lipase 179 (23-300) U/L Acetone, Qual Negative (Negative) Disposition Clinical Impression: Nausea & vomiting Disposition: HOME SELF-CARE Condition: Stable Instructions: Abdominal Pain (ED) Additional Instructions: Please use medication as discussed. Please follow-up with family doctor in the next 2 days of symptoms have not improved. Please return to emergency room if the symptoms increase or worsen or for any other concerns. Referrals: Kala Onofre MD [Primary Care Provider] - 1-2 days Time of Disposition: 18:07
[2016-09-02 17:48] LABS: ALT 92 U/L (21-72); AST 51 U/L (17-59); Alkaline Phosphatase 237 U/L (38-126); Anion Gap 20 mmol/L; Blood Urea Nitrogen 65 mg/dL (9-20); Calcium 9.4 mg/dL (8.4-10.2); Carbon Dioxide 25 mmol/L (22-30); Chloride 94 mmol/L (98-107); Glucose 244 mg/dL (74-99); Potassium 5.3 mmol/L (3.5-5.1); Sodium 139 mmol/L (137-145); Total Bilirubin 0.8 mg/dL (0.2-1.3)
[2016-09-02 17:55] LABS: Non-African American GFR(MDRD) 6 (>60 ml/min/1.73 sqM)
[2016-09-02 18:22] VITALS: BP 202/96; PULSE 85; RESP 16; TEMP 97.9
== END 2016-09-02 18:22 | disposition home or self-care (01) ==
LOC: EC 16:16
DX: R11.2 Nausea with vomiting, unspecified (principal); I13.0 Hypertensive heart and chronic kidney disease with heart failure and stage 1 through stage 4 chronic kidney disease, or unspecified chronic kidney disease; I50.9 Heart failure, unspecified; E11.22 Type 2 diabetes mellitus with diabetic chronic kidney disease; F41.9 Anxiety disorder, unspecified; F32.9 Major depressive disorder, single episode, unspecified; K21.9 Gastro-esophageal reflux disease without esophagitis; Z86.73 Personal history of transient ischemic attack (TIA), and cerebral infarction without residual deficits; Z90.49 Acquired absence of other specified parts of digestive tract; Z99.2 Dependence on renal dialysis; Z88.5 Allergy status to narcotic agent; Z88.8 Allergy status to other drugs, medicaments and biological substances; Z79.02 Long term (current) use of antithrombotics/antiplatelets; Z79.4 Long term (current) use of insulin; Z79.899 Other long term (current) drug therapy
CPT/HCPCS: 99284; 96374; 96375; 96361 ×2; 96372; 36415; 80053; 82009; 83690; 85025; J2060; J2405; J1170

== ENCOUNTER 2016-09-03 00:56 | Inpatient (IN) | payer MEDICARE, OTHER ==
[2016-09-03 01:07] VITALS: RESP 18
[2016-09-03] MEDS ORDERED: HYDROmorphone 1 MG/ML 1 ML SYRINGE IVP STA ×2 (01:17→04:44)
[2016-09-03] MEDS ORDERED: ONDANSETRON 4 MG/2 ML VIAL IVP STA ×2 (01:17→04:44)
[2016-09-03 01:41] LABS: Glucose,Whole Blood 191 mg/dL (75-99)
[2016-09-03 03:18] LABS: Anisocytosis Slight; Basophils # (A) 0.1 k/uL (0-0.2); Basophils % (A) 1 %; CH 29.3; CHCM 31.6; Eosinophils # (A) 0.3 k/uL (0-0.7); Eosinophils % (A) 4 %; HCT 35.5 % (39.0-53.0); HDW 2.22; HGB 11.2 gm/dL (13.0-17.5); Luc % (Auto) 2; Lymphocytes # (A) 0.9 k/uL (1.0-4.8); Lymphocytes % (A) 11 %; MCH 29.4 pg (25.0-35.0); MCHC 31.5 g/dL (31.0-37.0); MCV 93.1 fL (80.0-100.0); Mean Platelet Volume 8.7; Monocytes # (A) 0.5 k/uL (0-1.0); Monocytes % (A) 6 %; Neutrophils # (A) 6.5 k/uL (1.3-7.7); Neutrophils % (A) 76 %; RBC 3.81 m/uL (4.30-5.90); RDW 16.1 % (11.5-15.5); WBC 8.6 k/uL (3.8-10.6)
[2016-09-03 03:49] LABS: ALT 77 U/L (21-72); AST 35 U/L (17-59); Alkaline Phosphatase 238 U/L (38-126); Anion Gap 21 mmol/L; Blood Urea Nitrogen 71 mg/dL (9-20); Calcium 9.5 mg/dL (8.4-10.2); Carbon Dioxide 22 mmol/L (22-30); Chloride 97 mmol/L (98-107); Glucose 213 mg/dL (74-99); Potassium 5.4 mmol/L (3.5-5.1); Sodium 140 mmol/L (137-145); Total Bilirubin 0.8 mg/dL (0.2-1.3); Total Protein 7.1 g/dL (6.3-8.2)
[2016-09-03 04:03] LABS: Non-African American GFR(MDRD) 6 (>60 ml/min/1.73 sqM)
[2016-09-03] MEDS ORDERED: NALOXONE 0.4 MG/ML 1 ML VIAL IV PRN (04:41)
[2016-09-03] MEDS ORDERED: ONDANSETRON 4 MG/2 ML VIAL IVP PRN (04:41)
[2016-09-03] MEDS ORDERED: INSULIN REGULAR 100 UNIT/ML VIAL SQ STA (04:44)
[2016-09-03] MEDS ORDERED: SODIUM CHLORIDE 0.9% 1,000 ML IV SCH (04:45)
--- NOTE | 2016-09-03 04:45 | ED ---
Abdominal Pain HPI - General Chief Complaint: Abdominal Pain Stated Complaint: abd pain Time Seen by Provider: 09/03/16 01:14 Source: patient, family Mode of arrival: ambulatory Limitations: no limitations - History of Present Illness Initial Comments: This patient is a 41-year-old man with history of episodic abdominal pain with nausea vomiting and diarrhea who presents with an exacerbation of the same. He was seen here yesterday, and did have a little bit of improvement with fluids and medication and then went home but the symptoms recurred shortly after he went home. The patient complains of the same type of abdominal pain he always gets, located diffusely in the abdomen. He also has had multiple rounds of dry heaves and vomiting and he has had a few episodes of diarrhea as well. The patient has dialysis scheduled for about 6 AM but states they will not be able to dialyze him if he is sick and they send him to the hospital. MD Complaint: abdominal pain Onset/Timin -: days(s) Location: diffuse Radiation: none Migration to: no migration Quality: cramping, aching Consistency: constant Improves With: medication Worsens With: nothing Associated Symptoms: nausea, vomiting, diarrhea - Related Data Home Medications Medication Instructions Recorded Confirmed LORazepam [Ativan] 1 mg PO DAILY PRN 06/06/14 09/03/16 Carvedilol [Coreg] 25 mg PO BID 07/10/14 09/03/16 amLODIPine BESYLATE [Amlodipine 10 mg PO DAILY 06/24/15 09/03/16 Besylate] Cinacalcet HCl [Sensipar] 60 mg PO HS 10/31/15 09/03/16 Insulin Glargine [Lantus] 12 unit SQ HS 01/12/16 09/03/16 Folic Acid-Vit B Complex-Vit C 1 cap PO DAILY 01/25/16 09/03/16 [Nephrocaps] Cyclobenzaprine [Flexeril] 10 mg PO HS PRN 02/20/16 09/03/16 INSULIN LISPRO (humaLOG) [humaLOG See Protocol SQ AC-TID 02/20/16 09/03/16 (formulary)] Omeprazole [PriLOSEC] 20 mg PO DAILY 02/20/16 09/03/16 HYDROmorphone [Dilaudid] 2 mg PO DAILY PRN 03/28/16 09/03/16 hydrALAZINE HCL [Apresoline] 100 mg PO TID 03/28/16 09/03/16 Lisinopril 5 mg PO DAILY 06/13/16 09/03/16 Calcium Acetate [PhosLo] 667 mg PO DAILY 07/13/16 09/03/16 Diphenoxylate HCl/Atropine 1 tab PO Q8H PRN 07/13/16 09/03/16 [Lomotil 2.5-0.025 mg Tablet] Famotidine [Pepcid] 20 mg PO DAILY PRN 07/13/16 09/03/16 diphenhydrAMINE HCL [Benadryl] 25 mg PO TID PRN 07/14/16 09/03/16 Previous Rx's Medication Instructions Recorded cloNIDine HCL [Catapres] 0.2 mg PO TID tab 02/20/16 Ondansetron Odt [Zofran Odt] 4 mg PO Q8HR PRN #12 tab 08/27/16 Allergies Allergy/AdvReac Type Severity Reaction Status Date / Time codeine Allergy Rash/Hives Verified 09/03/16 01:03 metoclopramide HCl AdvReac Muscle Verified 09/03/16 01:03 [From Reglan] Spasms morphine AdvReac Increases Verified 09/03/16 01:03 Pain Review of Systems ROS Statement: Those systems with pertinent positive or pertinent negative responses have been documented in the HPI. ROS Other: All systems not noted in ROS Statement are negative. Constitutional: Denies: fever, chills Respiratory: Denies: cough, dyspnea Cardiovascular: Denies: chest pain, palpitations, edema Gastrointestinal: Reports: abdominal pain, nausea, vomiting, diarrhea. Denies: constipation, hematemesis, melena, hematochezia Genitourinary: Denies: testicular pain Musculoskeletal: Denies: back pain Skin: Denies: rash Neurological: Denies: headache Psychiatric: Reports: anxiety Past Medical History Past Medical History: Chest Pain / Angina, Heart Failure, CVA/TIA, Diabetes Mellitus, Dialysis, Eye Disorder, GERD/Reflux, Hypertension, Renal Disease, Seizure Disorder, Thyroid Disorder Additional Past Medical History / Comment(s): Chronic renal failure stage IV, hemodialysis M/W/FR -last done 08/24, past peritoneal dialysis with peritonitis , gastroparesis, cyclic vomiting, chronic abdominal pain, pancreatitis, IDDM type I brittle, heart murmur, heat stroke-no residual, diabetic retinopathy bilaterally, retinal detachment with surgery, hypothyroid, hiatal hernia, sinusitis, bronchitis, chronic back pain, anemia, last seizure in 2016. History of Any Multi-Drug Resistant Organisms: None Reported Past Surgical History: Cholecystectomy, Heart Catheterization, Hernia Repair Additional Past Surgical History / Comment(s): bilateral retinal reattachment sx , hemodialysis catheter in Feb 2013, lt arm fistual, L inguinal hernia, 2009 cardiac cath. Past Anesthesia/Blood Transfusion Reactions: No Reported Reaction Past Psychological History: Anxiety, Depression Smoking Status: Never smoker Past Alcohol Use History: None Reported Past Drug Use History: None Reported - Past Family History Father History Unknown: Yes Mother History Unknown: Yes Family Medical History: COPD Additional Family Medical History / Comment(s): Mother has never smoked. Mother' s brother had diabetes and multiple sclerosis. Brother(s) Family Medical History: Diabetes Mellitus Additional Family Medical History / Comment(s): multiple sclerosis General Exam Limitations: no limitations General appearance: alert, in no apparent distress Head exam: Present: atraumatic, normocephalic ENT exam: Present: mucous membranes dry Neck exam: Present: normal inspection Respiratory exam: Present: normal lung sounds bilaterally. Absent: respiratory distress, wheezes, rales, rhonchi, stridor Cardiovascular Exam: Present: regular rate, normal rhythm, systolic murmur. Absent: diastolic murmur, rubs, gallop GI/Abdominal exam: Present: soft, tenderness (Ears mild diffuse tenderness without rebound or guarding), diminished bowel sounds. Absent: distended, guarding, rebound, rigid, mass, pulsatile mass Extremities exam: Present: normal inspection, normal capillary refill. Absent: pedal edema, calf tenderness Back exam: Present: normal inspection. Absent: CVA tenderness (R), CVA tenderness (L) Neurological exam: Present: alert Skin exam: Present: warm, dry, intact, normal color. Absent: rash Course Vital Signs 09/03/16 09/03/16 09/03/16 01:03 02:28 04:00 Temperature 98.5 F Pulse Rate 98 89 84 Respiratory 18 18 18 Rate Blood Pressure 213/108 169/88 181/90 O2 Sat by Pulse 91 L 96 93 L Oximetry Medical Decision Making - Medical Decision Making This patient is a 41-year-old man with multiple previous episodes of abdominal pain with nausea and vomiting who presents with the same. He was seen earlier in the day and was able to go home but symptoms recurred. - Lab Data Result diagrams: 09/03/16 02:49 09/03/16 02:49 Lab Results 09/03/16 09/03/16 09/03/16 Range/Units 01:37 02:49 02:49 WBC 8.6 (3.8-10.6) k/uL RBC 3.81 L (4.30-5.90) m/uL Hgb 11.2 L (13.0-17.5) gm/dL Hct 35.5 L (39.0-53.0) % MCV 93.1 (80.0-100.0) fL MCH 29.4 (25.0-35.0) pg MCHC 31.5 (31.0-37.0) g/dL RDW 16.1 H (11.5-15.5) % Plt Count 189 (150-450) k/uL Neutrophils % 76 % Lymphocytes % 11 % Monocytes % 6 % Eosinophils % 4 % Basophils % 1 % Neutrophils # 6.5 (1.3-7.7) k/uL Lymphocytes # 0.9 L (1.0-4.8) k/uL Monocytes # 0.5 (0-1.0) k/uL Eosinophils # 0.3 (0-0.7) k/uL Basophils # 0.1 (0-0.2) k/uL Anisocytosis Slight Sodium 140 (137-145) mmol/L Potassium 5.4 H (3.5-5.1) mmol/L Chloride 97 L (98-107) mmol/L Carbon Dioxide 22 (22-30) mmol/L Anion Gap 21 mmol/L BUN 71 H (9-20) mg/dL Creatinine 10.00 H* (0.66-1.25) mg/dL Est GFR (MDRD) Af Amer 7 (>60 ml/min/1.73 sqM) Est GFR (MDRD) Non-Af 6 (>60 ml/min/1.73 sqM) Glucose 213 H (74-99) mg/dL POC Glucose (mg/dL) 191 H (75-99) mg/dL POC Glu [employer] Operator ID Donna, Luz Elena Calcium 9.5 (8.4-10.2) mg/dL Total Bilirubin 0.8 (0.2-1.3) mg/dL AST 35 (17-59) U/L ALT 77 H (21-72) U/L Alkaline Phosphatase 238 H (38-126) U/L Total Protein 7.1 (6.3-8.2) g/dL Albumin 4.2 (3.5-5.0) g/dL Acetone, Qual Positive (Negative) Disposition Clinical Impression: Intractable vomiting, Hemodialysis patient, Hyperglycemia Disposition: ADMITTED IP TO THIS HOSP Condition: Poor
[2016-09-03 05:00] LABS: Glucose,Whole Blood 196 mg/dL (75-99)
[2016-09-03] MEDS ORDERED: cloNIDine 0.2 MG/24HR PATCH 1 PATCH PATCH TRANSDERM SCH (05:30)
[2016-09-03] MEDS ORDERED: hydrALAZINE HCL 20 MG/ML 1 ML VIAL IVP PRN (06:19)
[2016-09-03] MEDS: diphenhydrAMINE 25 MG CAP PO PRN ×2 (06:47→14:50)
[2016-09-03 07:23] LABS: Glucose,Whole Blood 198 mg/dL (75-99)
[2016-09-03] MEDS: INSULIN LISPRO (humaLOG) 300 UNIT/3 ML VIAL SQ SCH ×3 (08:36→17:16)
[2016-09-03] MEDS: HYDROmorphone 1 MG/ML 1 ML SYRINGE IVP PRN ×2 (09:12→13:28)
[2016-09-03] MEDS ORDERED: LORazepam 1 MG TAB PO PRN (09:41)
[2016-09-03] MEDS ORDERED: DIPHENOX-ATROP 2.5-0.025 MG 1 EACH TAB PO PRN (09:41)
[2016-09-03] MEDS ORDERED: FAMOTIDINE 20 MG TAB PO PRN (09:41)
[2016-09-03] MEDS ORDERED: CALCIUM ACETATE 667 MG CAP PO SCH (09:45)
[2016-09-03] MEDS ORDERED: PANTOPRAZOLE 40 MG TABLET PO SCH (09:45)
[2016-09-03] MEDS ORDERED: FOLIC ACID-VIT B COMPLEX-VIT C 1 CAP PO SCH (09:45)
[2016-09-03] MEDS ORDERED: amLODIPine 10 MG TAB PO SCH (09:45)
[2016-09-03] MEDS ORDERED: LISINOPRIL 5 MG TAB PO SCH (09:45)
[2016-09-03] MEDS: CARVEDILOL 12.5 MG TAB PO SCH ×2 (11:06→17:16)
[2016-09-03] MEDS: hydrALAZINE HCL 50 MG TAB PO SCH ×2 (11:07→17:16)
--- NOTE | 2016-09-03 11:45 | P.NPCON ---
History of Present Illness - Reason for Consult end stage renal disease - History of Present Illness Reason for consultation: End-stage renal disease History of present illness: Patient is a 41-year-old male seen in renal consultation for end- stage renal disease. He is maintained on hemodialysis on a Saturday schedule. Patient has a history of insulin-dependent Elaine's mellitus and has recurrent attacks of gastroparesis. Patient states he developed nausea and vomiting along with worsening abdominal pain that started yesterday morning. He did try to eat light foods but that didn't help. He isn't noted to be extremely hypertensive with systolic blood pressure greater than 200. He hasn't had any vomiting since he left the emergency room. He wants his diet to be advanced as he is currently nothing by mouth. Denies chest pain or shortness of breath. His last hemodialysis was on Saturday. No other complaints at this time. Patient states his pain is better controlled as he received his Dilaudid couple of hours ago. Vital signs are stable. General: The patient appeared well nourished and normally developed. HEENT: Head exam is unremarkable. Neck is without jugular venous distension. LUNGS: Lungs are clear to auscultation and percussion. Breath sounds decreased. HEART: Rate and Rhythm are regular. First and second heart sounds normal. No murmurs, rubs or gallops. ABDOMEN: Abdominal exam reveals normal bowel sounds. Mildly tender to palpation. EXTREMITITES: No clubbing, cyanosis, or edema. Past Medical History Past Medical History: Chest Pain / Angina, Heart Failure, CVA/TIA, Diabetes Mellitus, Dialysis, Eye Disorder, GERD/Reflux, Hypertension, Renal Disease, Seizure Disorder, Thyroid Disorder Additional Past Medical History / Comment(s): Chronic renal failure stage IV, hemodialysis M/W/FR -last done 08/24, past peritoneal dialysis with peritonitis , gastroparesis, cyclic vomiting, chronic abdominal pain, pancreatitis, IDDM type I brittle, heart murmur, heat stroke-no residual, diabetic retinopathy bilaterally, retinal detachment with surgery, hypothyroid, hiatal hernia, sinusitis, bronchitis, chronic back pain, anemia, last seizure in 2015. History of Any Multi-Drug Resistant Organisms: None Reported Past Surgical History: Cholecystectomy, Heart Catheterization, Hernia Repair Additional Past Surgical History / Comment(s): bilateral retinal reattachment sx , hemodialysis catheter in Feb 2013, lt arm fistual, L inguinal hernia, 2009 cardiac cath. Past Anesthesia/Blood Transfusion Reactions: No Reported Reaction Past Psychological History: Anxiety, Depression Smoking Status: Never smoker Past Alcohol Use History: None Reported Past Drug Use History: None Reported - Past Family History Father History Unknown: Yes Mother History Unknown: Yes Family Medical History: COPD Additional Family Medical History / Comment(s): Mother has never smoked. Mother' s brother had diabetes and multiple sclerosis. Brother(s) Family Medical History: Diabetes Mellitus Additional Family Medical History / Comment(s): multiple sclerosis Medications and Allergies Home Medications Medication Instructions Recorded Confirmed Type LORazepam [Ativan] 1 mg PO DAILY PRN 06/06/14 09/03/16 History Carvedilol [Coreg] 25 mg PO BID 07/10/14 09/03/16 History amLODIPine BESYLATE [Amlodipine 10 mg PO DAILY 06/24/15 09/03/16 History Besylate] Cinacalcet HCl [Sensipar] 60 mg PO HS 10/31/15 09/03/16 History Insulin Glargine [Lantus] 12 unit SQ HS 01/12/16 09/03/16 History Folic Acid-Vit B Complex-Vit C 1 cap PO DAILY 01/25/16 09/03/16 History [Nephrocaps] Cyclobenzaprine [Flexeril] 10 mg PO HS PRN 02/20/16 09/03/16 History INSULIN LISPRO (humaLOG) [humaLOG See Protocol SQ AC-TID 02/20/16 09/03/16 History (formulary)] Omeprazole [PriLOSEC] 20 mg PO DAILY 02/20/16 09/03/16 History HYDROmorphone [Dilaudid] 2 mg PO DAILY PRN 03/28/16 09/03/16 History hydrALAZINE HCL [Apresoline] 100 mg PO TID 03/28/16 09/03/16 History Lisinopril 5 mg PO DAILY 06/13/16 09/03/16 History Calcium Acetate [PhosLo] 667 mg PO DAILY 07/13/16 09/03/16 History Diphenoxylate HCl/Atropine 1 tab PO Q8H PRN 07/13/16 09/03/16 History [Lomotil 2.5-0.025 mg Tablet] Famotidine [Pepcid] 20 mg PO DAILY PRN 07/13/16 09/03/16 History diphenhydrAMINE HCL [Benadryl] 25 mg PO TID PRN 07/14/16 09/03/16 History Allergies Allergy/AdvReac Type Severity Reaction Status Date / Time codeine Allergy Rash/Hives Verified 09/03/16 07:24 metoclopramide HCl AdvReac Muscle Verified 09/03/16 07:24 [From Reglan] Spasms morphine AdvReac Increases Verified 09/03/16 07:24 Pain Physical Exam Vitals: Vital Signs Temp Pulse Pulse Resp BP BP Pulse Ox 09/03/16 11:11 190/89 09/03/16 07:40 219/102 09/03/16 06:50 97.6 F 82 18 95 09/03/16 05:48 96.9 F L 79 18 209/103 99 09/03/16 05:30 98.5 F 85 18 195/96 96 09/03/16 04:00 84 18 181/90 93 L 09/03/16 02:28 89 18 169/88 96 09/03/16 01:03 98.5 F 98 18 213/108 91 L Intake and Output 09/02/16 09/03/16 09/03/16 22:59 06:59 14:59 Other: Voiding Method Urinal # Voids 0 # Bowel Movements 0 Weight 64.864 kg Results - Lab Results Most recent lab results Calcium 9.5 mg/dL (8.4-10.2) 09/03/16 02:49 09/03/16 02:49 09/03/16 02:49 Assessment and Plan Plan: Assessment: #1. End-stage renal disease maintained on hemodialysis on a Saturday schedule. #2. Nausea vomiting and abdominal pain likely from diabetic gastroparesis. #3. Chronic kidney disease mineral bone disease. #4. Hypertension with chronic kidney disease. Uncontrolled. Partially related to the gastroparesis flare. #5. Insulin-dependent diabetes mellitus. Plan: Hemodialysis today with goal 2 liters ultrafiltration. Resume home antihypertensives. Add hydralazine 10 mg IV every 4 hours for systolic blood pressure greater than 160. Pain control. Check phosphorus level. Thank you for the consultation. I will continue to follow the patient with you during his hospital stay.
[2016-09-03 11:53] LABS: Hemoglobin A1C 8.7 % (4.2-6.1)
[2016-09-03 12:39] LABS: Glucose,Whole Blood 188 mg/dL (75-99)
[2016-09-03 14:59] VITALS: BP 166/85; PULSE 74; TEMP 97.2
[2016-09-03 17:04] LABS: Glucose,Whole Blood 212 mg/dL (75-99)
--- NOTE | 2016-09-03 17:54 | P.HPIM ---
History of Present Illness H&P Date: 09/03/16 Chief Complaint: Intractable nausea, vomiting, abdominal pain This is a 41-year-old gentleman with history of diabetes type 1 diabetic gastroparesis,ESRD and hemodialysis on Saturday, Saturday, and Saturday, admitted with intractable nausea, vomiting, diarrhea, abdominal pain, hypertension with systolic blood pressure greater than 200. Patient states ran out of his oral Dilaudid on Saturday. Last hemodialysis completed on Saturday. Maintained on gentle IV fluid hydration. Currently NPO, states symptoms improved and asking for diet advancement. Denies chest pain, palpitations or increasing shortness of breath. Denies any focal deficits, no headache, no lightheadedness, no blurred vision, no further nausea, vomiting, or diarrhea. Recently medicated with IV Dilaudid, states midepigastric pain controlled. Review of Systems Constitutional: Reports as per HPI (Negative, noted in HPI) Past Medical History Past Medical History: Chest Pain / Angina, Heart Failure, CVA/TIA, Diabetes Mellitus, Dialysis, Eye Disorder, GERD/Reflux, Hypertension, Renal Disease, Seizure Disorder, Thyroid Disorder Additional Past Medical History / Comment(s): Chronic renal failure stage IV, hemodialysis M/W/FR -last done 08/24, past peritoneal dialysis with peritonitis , gastroparesis, cyclic vomiting, chronic abdominal pain, pancreatitis, IDDM type I brittle, heart murmur, heat stroke-no residual, diabetic retinopathy bilaterally, retinal detachment with surgery, hypothyroid, hiatal hernia, sinusitis, bronchitis, chronic back pain, anemia, last seizure in 2015. History of Any Multi-Drug Resistant Organisms: None Reported Past Surgical History: Cholecystectomy, Heart Catheterization, Hernia Repair Additional Past Surgical History / Comment(s): bilateral retinal reattachment sx , hemodialysis catheter in Feb 2013, lt arm fistual, L inguinal hernia, 2009 cardiac cath. Past Anesthesia/Blood Transfusion Reactions: No Reported Reaction Past Psychological History: Anxiety, Depression Smoking Status: Never smoker Past Alcohol Use History: None Reported Past Drug Use History: None Reported - Past Family History Father History Unknown: Yes Mother History Unknown: Yes Family Medical History: COPD Additional Family Medical History / Comment(s): Mother has never smoked. Mother' s brother had diabetes and multiple sclerosis. Brother(s) Family Medical History: Diabetes Mellitus Additional Family Medical History / Comment(s): multiple sclerosis Medications and Allergies Home Medications Medication Instructions Recorded Confirmed Type LORazepam [Ativan] 1 mg PO DAILY PRN 06/06/14 09/03/16 History Carvedilol [Coreg] 25 mg PO BID 07/10/14 09/03/16 History amLODIPine BESYLATE [Amlodipine 10 mg PO DAILY 06/24/15 09/03/16 History Besylate] Cinacalcet HCl [Sensipar] 60 mg PO HS 10/31/15 09/03/16 History Insulin Glargine [Lantus] 12 unit SQ HS 01/12/16 09/03/16 History Folic Acid-Vit B Complex-Vit C 1 cap PO DAILY 01/25/16 09/03/16 History [Nephrocaps] Cyclobenzaprine [Flexeril] 10 mg PO HS PRN 02/20/16 09/03/16 History INSULIN LISPRO (humaLOG) [humaLOG See Protocol SQ AC-TID 02/20/16 09/03/16 History (formulary)] Omeprazole [PriLOSEC] 20 mg PO DAILY 02/20/16 09/03/16 History HYDROmorphone [Dilaudid] 2 mg PO DAILY PRN 03/28/16 09/03/16 History hydrALAZINE HCL [Apresoline] 100 mg PO TID 03/28/16 09/03/16 History Lisinopril 5 mg PO DAILY 06/13/16 09/03/16 History Calcium Acetate [PhosLo] 667 mg PO DAILY 07/13/16 09/03/16 History Diphenoxylate HCl/Atropine 1 tab PO Q8H PRN 07/13/16 09/03/16 History [Lomotil 2.5-0.025 mg Tablet] Famotidine [Pepcid] 20 mg PO DAILY PRN 07/13/16 09/03/16 History diphenhydrAMINE HCL [Benadryl] 25 mg PO TID PRN 07/14/16 09/03/16 History Allergies Allergy/AdvReac Type Severity Reaction Status Date / Time codeine Allergy Rash/Hives Verified 09/03/16 07:24 metoclopramide HCl AdvReac Muscle Verified 09/03/16 07:24 [From Reglan] Spasms morphine AdvReac Increases Verified 09/03/16 07:24 Pain Physical Exam Vitals: Vital Signs Temp Pulse Pulse Resp BP BP Pulse Ox 09/03/16 14:59 97.2 F L 74 18 166/85 93 L 09/03/16 11:11 190/89 09/03/16 07:40 219/102 09/03/16 06:50 97.6 F 82 18 95 09/03/16 05:48 96.9 F L 79 18 209/103 99 09/03/16 05:30 98.5 F 85 18 195/96 96 09/03/16 04:00 84 18 181/90 93 L 09/03/16 02:28 89 18 169/88 96 09/03/16 01:03 98.5 F 98 18 213/108 91 L Intake and Output 09/03/16 09/03/16 09/03/16 06:59 14:59 22:59 Other: Voiding Method Urinal # Voids 0 1 # Bowel Movements 0 4 Weight 64.864 kg PHYSICAL EXAM: VITAL SIGNS: As above GENERAL: [Sitting up in bed, no acute distress] HEENT: [Pupils equal conjunctiva normal.] NECK: [Supple, no JVD] RESPIRATORY EFFORT:[ normal] LUNGS: [Clear to auscultation, no wheezes rhonchi or crackles] CARDIOVASCULAR[ regular S1 and S2, no murmurs rubs or gallops] GI: [Abdomen soft, nontender, no organomegaly, positive bowel sounds. No guarding, no rigidity] PSYCH: [Alert and oriented -3, mood and affect normal.] SKIN: [No abnormalities appreciated, graft palpable thrill in left upper arm NEURO: [Gross neurological examination did not reveal any focal deficits, gait and sensation grossly intact ] Results CBC & Chem 7: 09/03/16 02:49 09/03/16 02:49 Labs: Abnormal Lab Results - Last 24 Hours (Table) 09/03/16 09/03/16 09/03/16 Range/Units 01:37 02:49 02:49 RBC 3.81 L (4.30-5.90) m/uL Hgb 11.2 L (13.0-17.5) gm/dL Hct 35.5 L (39.0-53.0) % RDW 16.1 H (11.5-15.5) % Lymphocytes # 0.9 L (1.0-4.8) k/uL Potassium 5.4 H (3.5-5.1) mmol/L Chloride 97 L (98-107) mmol/L BUN 71 H (9-20) mg/dL Creatinine 10.00 H* (0.66-1.25) mg/dL Glucose 213 H (74-99) mg/dL POC Glucose (mg/dL) 191 H (75-99) mg/dL Hemoglobin A1c (4.2-6.1) % Phosphorus (2.5-4.5) mg/dL ALT 77 H (21-72) U/L Alkaline Phosphatase 238 H (38-126) U/L 09/03/16 09/03/16 09/03/16 Range/Units 02:49 02:49 04:57 RBC (4.30-5.90) m/uL Hgb (13.0-17.5) gm/dL Hct (39.0-53.0) % RDW (11.5-15.5) % Lymphocytes # (1.0-4.8) k/uL Potassium (3.5-5.1) mmol/L Chloride (98-107) mmol/L BUN (9-20) mg/dL Creatinine (0.66-1.25) mg/dL Glucose (74-99) mg/dL POC Glucose (mg/dL) 196 H (75-99) mg/dL Hemoglobin A1c 8.7 H (4.2-6.1) % Phosphorus 8.1 H* (2.5-4.5) mg/dL ALT (21-72) U/L Alkaline Phosphatase (38-126) U/L 09/03/16 09/03/16 09/03/16 Range/Units 06:53 11:56 17:02 RBC (4.30-5.90) m/uL Hgb (13.0-17.5) gm/dL Hct (39.0-53.0) % RDW (11.5-15.5) % Lymphocytes # (1.0-4.8) k/uL Potassium (3.5-5.1) mmol/L Chloride (98-107) mmol/L BUN (9-20) mg/dL Creatinine (0.66-1.25) mg/dL Glucose (74-99) mg/dL POC Glucose (mg/dL) 198 H 188 H 212 H (75-99) mg/dL Hemoglobin A1c (4.2-6.1) % Phosphorus (2.5-4.5) mg/dL ALT (21-72) U/L Alkaline Phosphatase (38-126) U/L Thrombosis Risk Factor Assmnt - Choose All That Apply Each Factor Represents 1 point: Age 41-60 years Thrombosis Risk Factor Assessment Total Risk Factor Score: 1 Thrombosis Risk Factor Assessment Level: Low Risk Assessment and Plan Plan: #1 acute exacerbation of diabetic gastroparesis #2 hypertension, uncontrolled #3 diabetes mellitus type 1 #4 ESRD on hemodialysis #5 essential hypertension #6 bone mineral renal disease #7 history of seizure disorder #8 history of TIA Plan: Continue on current medication regime ,monitoring and symptomatic treatment. Scheduled for hemodialysis today. Home medications including antihypertensives have been resumed. GI and DVT prophylaxis in place. Diet advanced to clear liquids. Follow closely with nephrology. Discharge planning in progress for tomorrow. Further recommendations to follow. The impression and plan of care has been dictated as directed as a scribe. : I performed a H&P examination of this patient and discussed the same with the dictator. I agree with the dictator's note. Any additional findings/opinions/ etc. will be noted.
--- NOTE | 2016-09-03 19:01 | P.DS ---
Providers Date of admission: 09/03/16 04:45 Expected date of discharge: 09/03/16 Attending physician: Cristóbal Balbuena Consults: 09/03/16 04:42 Consult Physician Routine Consulting Provider: Gisella Rush Consult Reason/Comments: dialysis patient Do you want consulting provider notified?: Yes Primary care physician: Roney Kim [facility] Course: #1 acute exacerbation of diabetic gastroparesis #2 hypertension, uncontrolled #3 diabetes mellitus type 1 #4 ESRD on hemodialysis #5 essential hypertension #6 bone mineral renal disease #7 history of seizure disorder This is a 41-year-old gentleman with history of diabetes type 1 diabetic gastroparesis,ESRD and hemodialysis on Saturday, Saturday, and Saturday, admitted with intractable nausea, vomiting, diarrhea, abdominal pain, hypertension with systolic blood pressure greater than 200. Patient states ran out of his oral Dilaudid on Saturday. Last hemodialysis completed on Saturday. Patient left AMA Plan - Discharge Summary New Discharge Prescriptions: No Action LORazepam [Ativan] 1 mg PO DAILY PRN PRN Reason: Anxiety Carvedilol [Coreg] 25 mg PO BID amLODIPine BESYLATE [Amlodipine Besylate] 10 mg PO DAILY Cinacalcet HCl [Sensipar] 60 mg PO HS Insulin Glargine [Lantus] 12 unit SQ HS Folic Acid-Vit B Complex-Vit C [Nephrocaps] 1 cap PO DAILY Omeprazole [PriLOSEC] 20 mg PO DAILY INSULIN LISPRO (humaLOG) [humaLOG (formulary)] See Protocol SQ AC-TID Cyclobenzaprine [Flexeril] 10 mg PO HS PRN PRN Reason: Muscle Spasm cloNIDine HCL [Catapres] 0.2 mg PO TID tab hydrALAZINE HCL [Apresoline] 100 mg PO TID HYDROmorphone [Dilaudid] 2 mg PO DAILY PRN PRN Reason: Pain Lisinopril 5 mg PO DAILY Famotidine [Pepcid] 20 mg PO DAILY PRN PRN Reason: gerd Diphenoxylate HCl/Atropine [Lomotil 2.5-0.025 mg Tablet] 1 tab PO Q8H PRN PRN Reason: Diarrhea Calcium Acetate [PhosLo] 667 mg PO DAILY diphenhydrAMINE HCL [Benadryl] 25 mg PO TID PRN PRN Reason: Itching Ondansetron Odt [Zofran Odt] 4 mg PO Q8HR PRN #12 tab PRN Reason: Nausea Discharge Medication List LORazepam [Ativan] 1 mg PO DAILY PRN 06/06/14 [History] Carvedilol [Coreg] 25 mg PO BID 07/10/14 [History] amLODIPine BESYLATE [Amlodipine Besylate] 10 mg PO DAILY 06/24/15 [History] Cinacalcet HCl [Sensipar] 60 mg PO HS 10/31/15 [History] Insulin Glargine [Lantus] 12 unit SQ HS 01/12/16 [History] Folic Acid-Vit B Complex-Vit C [Nephrocaps] 1 cap PO DAILY 01/25/16 [History] Cyclobenzaprine [Flexeril] 10 mg PO HS PRN 02/20/16 [History] INSULIN LISPRO (humaLOG) [humaLOG (formulary)] See Protocol SQ AC-TID 02/20/16 [ History] Omeprazole [PriLOSEC] 20 mg PO DAILY 02/20/16 [History] cloNIDine HCL [Catapres] 0.2 mg PO TID tab 02/20/16 [Rx] HYDROmorphone [Dilaudid] 2 mg PO DAILY PRN 03/28/16 [History] hydrALAZINE HCL [Apresoline] 100 mg PO TID 03/28/16 [History] Lisinopril 5 mg PO DAILY 06/13/16 [History] Calcium Acetate [PhosLo] 667 mg PO DAILY 07/13/16 [History] Diphenoxylate HCl/Atropine [Lomotil 2.5-0.025 mg Tablet] 1 tab PO Q8H PRN [History] Famotidine [Pepcid] 20 mg PO DAILY PRN 07/13/16 [History] diphenhydrAMINE HCL [Benadryl] 25 mg PO TID PRN 07/14/16 [History] Ondansetron Odt [Zofran Odt] 4 mg PO Q8HR PRN #12 tab 08/27/16 [Rx] Follow up Appointment(s)/Referral(s): Kala Onofre MD [Primary Care Provider] - 1-2 days Patient Instructions/Handouts: Chronic Kidney Disease (DC), Type 1 Diabetes in Adults (DC) Discharge Disposition: Left Against Medical Advice
[2016-09-03] MEDS ORDERED: CYCLOBENZAPRINE 10 MG TAB PO PRN (21:00)
[2016-09-03] MEDS ORDERED: CINACALCET 30 MG TAB PO SCH (21:00)
[2016-09-03] MEDS ORDERED: INSULIN GLARGINE 100 UNIT/ML 10 ML VIAL SQ SCH (21:00)
== END 2016-09-03 18:50 | disposition left against medical advice (07) | DRG 73 ==
LOC: EC 00:56 → 4MS4W 04:45
PROVIDERS: ADMIT Hospitalist; ATTEND Hospitalist
PROC: 5A1D00Z (ICD-10-PCS; principal; 2016-09-03)
DX: E10.43 Type 1 diabetes mellitus with diabetic autonomic (poly)neuropathy (principal); N18.6 End stage renal disease; I13.2 Hypertensive heart and chronic kidney disease with heart failure and with stage 5 chronic kidney disease, or end stage renal disease; E10.22 Type 1 diabetes mellitus with diabetic chronic kidney disease; K31.84 Gastroparesis; E10.65 Type 1 diabetes mellitus with hyperglycemia; K21.9 Gastro-esophageal reflux disease without esophagitis; G40.909 Epilepsy, unspecified, not intractable, without status epilepticus; G89.29 Other chronic pain; T40.2X6A Underdosing of other opioids, initial encounter; D64.9 Anemia, unspecified; R19.7 Diarrhea, unspecified; E10.319 Type 1 diabetes mellitus with unspecified diabetic retinopathy without macular edema; I50.9 Heart failure, unspecified; E03.9 Hypothyroidism, unspecified; K44.9 Diaphragmatic hernia without obstruction or gangrene; R01.1 Cardiac murmur, unspecified; F41.9 Anxiety disorder, unspecified; F32.9 Major depressive disorder, single episode, unspecified; Z53.21 Procedure and treatment not carried out due to patient leaving prior to being seen by health care provider; Z79.891 Long term (current) use of opiate analgesic; Z88.5 Allergy status to narcotic agent; Z99.2 Dependence on renal dialysis; Z88.8 Allergy status to other drugs, medicaments and biological substances; Z83.3 Family history of diabetes mellitus; Z86.73 Personal history of transient ischemic attack (TIA), and cerebral infarction without residual deficits; Z79.899 Other long term (current) drug therapy; Z79.4 Long term (current) use of insulin; Z82.0 Family history of epilepsy and other diseases of the nervous system; Z82.5 Family history of asthma and other chronic lower respiratory diseases; Z86.69 Personal history of other diseases of the nervous system and sense organs; Z86.19 Personal history of other infectious and parasitic diseases; Z87.09 Personal history of other diseases of the respiratory system; Z90.49 Acquired absence of other specified parts of digestive tract; Z87.19 Personal history of other diseases of the digestive system
CPT/HCPCS: 36415; 80053; 82009; 83036; 84100; 85025; 90935; 96374; 96375; 96376; 99284

== ENCOUNTER 2016-09-14 21:17 | Emergency (ER) | payer MEDICARE, OTHER ==
[2016-09-14] MEDS ORDERED: HYDROmorphone 1 MG/ML 1 ML SYRINGE IVP STA ×2 (22:14→23:44)
[2016-09-14] MEDS ORDERED: SODIUM CHLORIDE 0.9% 1,000 ML IV STA (22:14)
[2016-09-14] MEDS ORDERED: ONDANSETRON 4 MG/2 ML VIAL IVP STA (22:14)
[2016-09-14 22:31] LABS: Anisocytosis Slight; Basophils # (A) 0.1 k/uL (0-0.2); Basophils % (A) 1 %; CH 30.2; CHCM 32.9; Eosinophils # (A) 0.3 k/uL (0-0.7); Eosinophils % (A) 5 %; HDW 2.39; Luc % (Auto) 3; Lymphocytes # (A) 1.2 k/uL (1.0-4.8); Lymphocytes % (A) 18 %; MCH 29.7 pg (25.0-35.0); MCHC 32.3 g/dL (31.0-37.0); MCV 92.1 fL (80.0-100.0); Mean Platelet Volume 8.2; Monocytes # (A) 0.5 k/uL (0-1.0); Monocytes % (A) 7 %; Neutrophils # (A) 4.4 k/uL (1.3-7.7); Neutrophils % (A) 67 %; RBC 3.26 m/uL (4.30-5.90); RDW 16.7 % (11.5-15.5); WBC 6.7 k/uL (3.8-10.6); WBC (Perox) 6.81
[2016-09-14 22:39] LABS: HGB 9.7 gm/dL (13.0-17.5); INR 1.1 (<1.2)
[2016-09-14 22:40] LABS: Partial Thromboplastin Time 25.8 sec (22.0-30.0); Prothrombin Time 11.2 sec (9.0-12.0)
[2016-09-14 22:41] LABS: Calcium 9.7 mg/dL (8.4-10.2); Potassium 4.4 mmol/L (3.5-5.1); Total Bilirubin 0.7 mg/dL (0.2-1.3); Total Protein 7.2 g/dL (6.3-8.2)
[2016-09-14] MEDS ORDERED: PROMETHAZINE INJ 12.5 MG in SODIUM CHLORIDE 0.9% 50 ML IVPB STA (22:54)
--- NOTE | 2016-09-14 23:15 | XR ---
EXAM: XR Abdomen Complete With XR Chest CLINICAL HISTORY: Reason: abd pain TECHNIQUE: Frontal view of the chest, frontal view of the abdomen/pelvis and upright view of the abdomen. COMPARISON: Chest x-ray dated and abdominal radiograph dated 07/14/16 FINDINGS: Lungs: Unremarkable. No consolidation. Pleural space: Unremarkable. No pneumothorax. Heart: Unremarkable. No cardiomegaly. Mediastinum: Unremarkable. Intraperitoneal space: Surgical clips within the right lower abdomen and right paraspinal region. No free air. Gastrointestinal tract: Unremarkable. No dilation. Bones/joints: Unremarkable. IMPRESSION: No acute findings.
[2016-09-14 23:28] VITALS: RESP 18
[2016-09-14] MEDS ORDERED: hydrALAZINE HCL 20 MG/ML 1 ML VIAL IVP STA (23:29)
--- NOTE | 2016-09-14 23:40 | ED ---
Abdominal Pain HPI - General Chief Complaint: Abdominal Pain Stated Complaint: abd pain Time Seen by Provider: 09/14/16 21:56 Source: patient Mode of arrival: EMS Limitations: no limitations - History of Present Illness Initial Comments: This 41-year-old white male presents with a complaint of abdominal pain as well as nausea and vomiting. He states that he has had it minimally over the last couple days but much more severe since this morning. He hadn't approximately 2- 3 episodes of vomiting. The abdominal pain is in the midepigastric region. He is a long-standing history of diabetes and gastroparesis. He is had multiple similar incidents requiring hospitalization. He also has a history of renal failure and just had dialysis earlier this morning. He denies any fevers or chills. There is no constipation or diarrhea. No other complaints or modifying factors. - Related Data Home Medications Medication Instructions Recorded Confirmed LORazepam [Ativan] 1 mg PO DAILY PRN 06/06/14 09/14/16 Carvedilol [Coreg] 25 mg PO BID 07/10/14 09/14/16 amLODIPine BESYLATE [Amlodipine 10 mg PO DAILY 06/24/15 09/14/16 Besylate] Cinacalcet HCl [Sensipar] 60 mg PO HS 10/31/15 09/14/16 Insulin Glargine [Lantus] 12 unit SQ HS 01/12/16 09/14/16 Folic Acid-Vit B Complex-Vit C 1 cap PO DAILY 01/25/16 09/14/16 [Nephrocaps] Cyclobenzaprine [Flexeril] 10 mg PO HS PRN 02/20/16 09/14/16 INSULIN LISPRO (humaLOG) [humaLOG See Protocol SQ AC-TID 02/20/16 09/14/16 (formulary)] Omeprazole [PriLOSEC] 20 mg PO DAILY 02/20/16 09/14/16 HYDROmorphone [Dilaudid] 2 mg PO DAILY PRN 03/28/16 09/14/16 hydrALAZINE HCL [Apresoline] 100 mg PO TID 03/28/16 09/14/16 Lisinopril 5 mg PO DAILY 06/13/16 09/14/16 Calcium Acetate [PhosLo] 667 mg PO DAILY 07/13/16 09/14/16 Diphenoxylate HCl/Atropine 1 tab PO Q8H PRN 07/13/16 09/14/16 [Lomotil 2.5-0.025 mg Tablet] Famotidine [Pepcid] 20 mg PO DAILY PRN 07/13/16 09/14/16 diphenhydrAMINE HCL [Benadryl] 25 mg PO TID PRN 07/14/16 09/14/16 Previous Rx's Medication Instructions Recorded cloNIDine HCL [Catapres] 0.2 mg PO TID tab 02/20/16 Ondansetron Odt [Zofran Odt] 4 mg PO Q8HR PRN #12 tab 08/27/16 Allergies Allergy/AdvReac Type Severity Reaction Status Date / Time codeine Allergy Rash/Hives Verified 09/14/16 21:24 metoclopramide HCl AdvReac Muscle Verified 09/14/16 21:24 [From Reglan] Spasms morphine AdvReac Increases Verified 09/14/16 21:24 Pain Review of Systems ROS Statement: Those systems with pertinent positive or pertinent negative responses have been documented in the HPI. ROS Other: All systems not noted in ROS Statement are negative. Past Medical History Past Medical History: Chest Pain / Angina, Heart Failure, CVA/TIA, Diabetes Mellitus, Dialysis, Eye Disorder, GERD/Reflux, Hypertension, Renal Disease, Seizure Disorder, Thyroid Disorder Additional Past Medical History / Comment(s): Chronic renal failure stage IV, hemodialysis M/W/FR -last done 08/24, past peritoneal dialysis with peritonitis , gastroparesis, cyclic vomiting, chronic abdominal pain, pancreatitis, IDDM type I brittle, heart murmur, heat stroke-no residual, diabetic retinopathy bilaterally, retinal detachment with surgery, hypothyroid, hiatal hernia, sinusitis, bronchitis, chronic back pain, anemia, last seizure in 2015. History of Any Multi-Drug Resistant Organisms: None Reported Past Surgical History: Cholecystectomy, Heart Catheterization, Hernia Repair Additional Past Surgical History / Comment(s): bilateral retinal reattachment sx , hemodialysis catheter in Feb 2013, lt arm fistual, L inguinal hernia, 2009 cardiac cath. Past Anesthesia/Blood Transfusion Reactions: No Reported Reaction Past Psychological History: Anxiety, Depression Smoking Status: Never smoker Past Alcohol Use History: None Reported Past Drug Use History: None Reported - Past Family History Father History Unknown: Yes Mother History Unknown: Yes Family Medical History: COPD Additional Family Medical History / Comment(s): Mother has never smoked. Mother' s brother had diabetes and multiple sclerosis. Brother(s) Family Medical History: Diabetes Mellitus Additional Family Medical History / Comment(s): multiple sclerosis General Exam - General Exam Comments Initial Comments: GENERAL: The patient is well nourished and well hydrated. VITAL SIGNS: Heart rate, blood pressure, respiratory rate reviewed as recorded in nurse's notes. EYES: Pupils are round and reactive. Extraocular movements are intact. No conjunctival / lid redness or swelling. ENT: No external evidence of injury, swelling, or ecchymosis. Airway is patent. Throat is clear. NECK: Nontender. No swelling or evidence of injury. No subcutaneous emphysema. Trachea is midline. No thyroid mass. HEART: Regular rate and rhythm. Good peripheral pulses. LUNGS/CHEST: Breath sounds clear and equal bilaterally. No rales, rhonchi, or wheezes. No ecchymosis, subcutaneous emphysema, or tenderness. ABDOMEN: There is tenderness in the midepigastric region of the abdomen. No palpable masses or organomegaly. No peritoneal signs. No abdominal wall swelling or ecchymosis. EXTREMITIES: No extremity tenderness. Normal muscle tone and function. No thoracolumbar tenderness. NEUROLOGIC: Sensation is grossly intact. Cranial nerve exam reveals face is symmetrical, tongue is midline, speech is clear. SKIN: No abrasions or ecchymosis is noted. No induration or masses noted. PSYCHIATRIC: Alert and oriented. Appropriate behavior and judgment. Limitations: no limitations Course Vital Signs 09/14/16 09/14/16 09/14/16 21:19 23:26 23:46 Temperature 98.3 F 98.3 F Pulse Rate 83 83 Respiratory 22 18 Rate Blood Pressure 123/70 198/82 178/72 O2 Sat by Pulse 94 L 96 Oximetry 09/15/16 00:30 Temperature 98.4 F Pulse Rate 96 Respiratory 18 Rate Blood Pressure 171/88 O2 Sat by Pulse 97 Oximetry Medical Decision Making - Medical Decision Making The patient was seen and examined. All diagnostics were reviewed. An IV was established and he is hydrated. He also receives some Dilaudid, Zofran, Phenergan, and hydralazine intravenously. Is feeling somewhat improved on recheck but still in pain. The laboratories reviewed. It does show some hyperglycemia and his chronic renal failure and hypochloremia but no other acute findings are noted. He also had an acute abdominal series done which does not show any acute process. He is given some additional medicines and is feeling better on recheck. He is offered admission to the hospital but would prefer to go home. He states that he has been through this quite a bit and knows his body. Return parameters are discussed and he leaves in no severe distress. - Lab Data Result diagrams: 09/14/16 21:50 09/14/16 21:50 Lab Results 09/14/16 09/14/16 09/14/16 Range/Units 21:50 21:50 21:50 WBC 6.7 (3.8-10.6) k/uL RBC 3.26 L (4.30-5.90) m/uL Hgb 9.7 L D (13.0-17.5) gm/dL Hct 30.0 L (39.0-53.0) % MCV 92.1 (80.0-100.0) fL MCH 29.7 (25.0-35.0) pg MCHC 32.3 (31.0-37.0) g/dL RDW 16.7 H (11.5-15.5) % Plt Count 192 (150-450) k/uL Neutrophils % 67 % Lymphocytes % 18 % Monocytes % 7 % Eosinophils % 5 % Basophils % 1 % Neutrophils # 4.4 (1.3-7.7) k/uL Lymphocytes # 1.2 (1.0-4.8) k/uL Monocytes # 0.5 (0-1.0) k/uL Eosinophils # 0.3 (0-0.7) k/uL Basophils # 0.1 (0-0.2) k/uL Anisocytosis Slight PT 11.2 (9.0-12.0) sec INR 1.1 (<1.2) APTT 25.8 (22.0-30.0) sec Sodium 139 (137-145) mmol/L Potassium 4.4 (3.5-5.1) mmol/L Chloride 95 L (98-107) mmol/L Carbon Dioxide 30 (22-30) mmol/L Anion Gap 14 mmol/L BUN 30 H (9-20) mg/dL Creatinine 5.40 H* (0.66-1.25) mg/dL Est GFR (MDRD) Af Amer 14 (>60 ml/min/1.73 sqM) Est GFR (MDRD) Non-Af 12 (>60 ml/min/1.73 sqM) Glucose 218 H (74-99) mg/dL Plasma Lactic Acid Ronaldo (0.7-2.0) mmol/L Calcium 9.7 (8.4-10.2) mg/dL Total Bilirubin 0.7 (0.2-1.3) mg/dL AST 26 (17-59) U/L ALT 46 (21-72) U/L Alkaline Phosphatase 198 H (38-126) U/L Total Protein 7.2 (6.3-8.2) g/dL Albumin 4.2 (3.5-5.0) g/dL Amylase 60 (30-110) U/L Lipase 138 (23-300) U/L 09/14/ Range/Units 22:29 WBC (3.8-10.6) k/uL RBC (4.30-5.90) m/uL Hgb (13.0-17.5) gm/dL Hct (39.0-53.0) % MCV (80.0-100.0) fL MCH (25.0-35.0) pg MCHC (31.0-37.0) g/dL RDW (11.5-15.5) % Plt Count (150-450) k/uL Neutrophils % % Lymphocytes % % Monocytes % % Eosinophils % % Basophils % % Neutrophils # (1.3-7.7) k/uL Lymphocytes # (1.0-4.8) k/uL Monocytes # (0-1.0) k/uL Eosinophils # (0-0.7) k/uL Basophils # (0-0.2) k/uL Anisocytosis PT (9.0-12.0) sec INR (<1.2) APTT (22.0-30.0) sec Sodium (137-145) mmol/L Potassium (3.5-5.1) mmol/L Chloride (98-107) mmol/L Carbon Dioxide (22-30) mmol/L Anion Gap mmol/L BUN (9-20) mg/dL Creatinine (0.66-1.25) mg/dL Est GFR (MDRD) Af Amer (>60 ml/min/1.73 sqM) Est GFR (MDRD) Non-Af (>60 ml/min/1.73 sqM) Glucose (74-99) mg/dL Plasma Lactic Acid Ronaldo 0.9 (0.7-2.0) mmol/L Calcium (8.4-10.2) mg/dL Total Bilirubin (0.2-1.3) mg/dL AST (17-59) U/L ALT (21-72) U/L Alkaline Phosphatase (38-126) U/L Total Protein (6.3-8.2) g/dL Albumin (3.5-5.0) g/dL Amylase (30-110) U/L Lipase (23-300) U/L Disposition Clinical Impression: Gastroparesis due to secondary diabetes, Chronic renal failure syndrome, Hypertension, Anemia, Hypochloremia, Hyperglycemia, Abdominal pain, Vomiting Disposition: HOME SELF-CARE Condition: Fair Instructions: Abdominal Pain (ED), Gastroparesis (ED), Acute Nausea and Vomiting (ED) Referrals: Kala Onofre MD [Primary Care Provider] - 1-2 days Time of Disposition: 00:47
[2016-09-15] MEDS ORDERED: diphenhydrAMINE 50 MG/ML 1 ML VIAL IVP STA (00:10)
[2016-09-15 00:33] VITALS: BP 171/88; PULSE 96; TEMP 98.4
== END 2016-09-15 01:02 | disposition home or self-care (01) ==
LOC: EC 21:17
DX: R10.13 Epigastric pain (principal); R11.2 Nausea with vomiting, unspecified; E10.43 Type 1 diabetes mellitus with diabetic autonomic (poly)neuropathy; K31.84 Gastroparesis; I13.0 Hypertensive heart and chronic kidney disease with heart failure and stage 1 through stage 4 chronic kidney disease, or unspecified chronic kidney disease; N18.4 Chronic kidney disease, stage 4 (severe); E10.22 Type 1 diabetes mellitus with diabetic chronic kidney disease; D64.9 Anemia, unspecified; E87.8 Other disorders of electrolyte and fluid balance, not elsewhere classified; E07.9 Disorder of thyroid, unspecified; K21.9 Gastro-esophageal reflux disease without esophagitis; I50.9 Heart failure, unspecified; Z86.73 Personal history of transient ischemic attack (TIA), and cerebral infarction without residual deficits; Z90.49 Acquired absence of other specified parts of digestive tract; Z95.5 Presence of coronary angioplasty implant and graft; Z99.2 Dependence on renal dialysis; Z88.5 Allergy status to narcotic agent; Z88.8 Allergy status to other drugs, medicaments and biological substances; Z79.02 Long term (current) use of antithrombotics/antiplatelets; Z79.4 Long term (current) use of insulin; Z79.899 Other long term (current) drug therapy
CPT/HCPCS: 99284; 96365; 96375 ×4; 96376; 96361; 36415; 80053; 82150; 83605; 83690; 85025; 85610; 85730; 74022; J0360; J1200; J2550; J2405; J1170

== ENCOUNTER 2016-09-18 15:24 | Emergency (ER) | payer MEDICARE, OTHER ==
[2016-09-18 16:01] VITALS: PULSE 84
[2016-09-18] MEDS ORDERED: SODIUM CHLORIDE 0.9% 1,000 ML IV ONE (17:35)
[2016-09-18] MEDS ORDERED: HYDROmorphone 1 MG/ML 1 ML SYRINGE IVP STA (17:40)
[2016-09-18] MEDS ORDERED: ONDANSETRON 4 MG/2 ML VIAL IVP STA (17:41)
--- NOTE | 2016-09-18 17:47 | ED ---
Abdominal Pain HPI - General Chief Complaint: Abdominal Pain Stated Complaint: Vomiting Time Seen by Provider: 09/18/16 17:24 Source: patient, RN notes reviewed Mode of arrival: ambulatory Limitations: no limitations - History of Present Illness Initial Comments: Patient is a 41-year-old male presents to the emergency room for evaluation of abdominal pain nausea and vomiting. Patient has a history of type 1 diabetes and is end-stage renal failure. Patient goes to dialysis Mondays, Wednesdays and Fridays. Patient states his last dialysis appointment was yesterday. Patient states he woke up at 9 AM this morning with extreme abdominal pain, nausea and vomiting. Patient states he takes Dilaudid for pain. Patient states he ran out of his Zofran. Patient states this pain is like his usual pain. Patient has history of gastroparesis. Patient states he is unable to keep any medications down. Patient denies diarrhea or constipation. Patient denies fevers or chills. Patient denies chest pain or shortness of breath. - Related Data Home Medications Medication Instructions Recorded Confirmed LORazepam [Ativan] 1 mg PO DAILY PRN 06/06/14 09/18/16 Carvedilol [Coreg] 25 mg PO BID 07/10/14 09/18/16 amLODIPine BESYLATE [Amlodipine 10 mg PO DAILY 06/24/15 09/18/16 Besylate] Cinacalcet HCl [Sensipar] 60 mg PO HS 10/31/15 09/18/16 Insulin Glargine [Lantus] 12 unit SQ HS 01/12/16 09/18/16 Folic Acid-Vit B Complex-Vit C 1 cap PO DAILY 01/25/16 09/18/16 [Nephrocaps] Cyclobenzaprine [Flexeril] 10 mg PO HS PRN 02/20/16 09/18/16 INSULIN LISPRO (humaLOG) [humaLOG See Protocol SQ AC-TID 02/20/16 09/18/16 (formulary)] Omeprazole [PriLOSEC] 20 mg PO DAILY 02/20/16 09/18/16 HYDROmorphone [Dilaudid] 2 mg PO DAILY PRN 03/28/16 09/18/16 hydrALAZINE HCL [Apresoline] 100 mg PO TID 03/28/16 09/18/16 Lisinopril 5 mg PO DAILY 06/13/16 09/18/16 Calcium Acetate [PhosLo] 667 mg PO DAILY 07/13/16 09/18/16 Diphenoxylate HCl/Atropine 1 tab PO Q8H PRN 07/13/16 09/18/16 [Lomotil 2.5-0.025 mg Tablet] Famotidine [Pepcid] 20 mg PO DAILY PRN 07/13/16 09/18/16 diphenhydrAMINE HCL [Benadryl] 25 mg PO TID PRN 07/14/16 09/18/16 Previous Rx's Medication Instructions Recorded cloNIDine HCL [Catapres] 0.2 mg PO TID tab 02/20/16 Ondansetron Odt [Zofran Odt] 4 mg PO Q8HR PRN #12 tab 08/27/16 Ondansetron Odt [Zofran Odt] 4 mg PO Q8HR PRN #12 tab 09/18/16 Allergies Allergy/AdvReac Type Severity Reaction Status Date / Time codeine Allergy Rash/Hives Verified 09/18/16 17:33 metoclopramide HCl AdvReac Muscle Verified 09/18/16 17:33 [From Reglan] Spasms morphine AdvReac Increases Verified 09/18/16 17:33 Pain Review of Systems ROS Statement: Those systems with pertinent positive or pertinent negative responses have been documented in the HPI. ROS Other: All systems not noted in ROS Statement are negative. Past Medical History Past Medical History: Chest Pain / Angina, Heart Failure, CVA/TIA, Diabetes Mellitus, Dialysis, Eye Disorder, GERD/Reflux, Hypertension, Renal Disease, Seizure Disorder, Thyroid Disorder Additional Past Medical History / Comment(s): Chronic renal failure stage IV, hemodialysis M/W/FR -last done 08/24, past peritoneal dialysis with peritonitis , gastroparesis, cyclic vomiting, chronic abdominal pain, pancreatitis, IDDM type I brittle, heart murmur, heat stroke-no residual, diabetic retinopathy bilaterally, retinal detachment with surgery, hypothyroid, hiatal hernia, sinusitis, bronchitis, chronic back pain, anemia, last seizure in 2016. History of Any Multi-Drug Resistant Organisms: None Reported Past Surgical History: Cholecystectomy, Heart Catheterization, Hernia Repair Additional Past Surgical History / Comment(s): bilateral retinal reattachment sx , hemodialysis catheter in Feb 2013, lt arm fistual, L inguinal hernia, 2009 cardiac cath. Past Anesthesia/Blood Transfusion Reactions: No Reported Reaction Past Psychological History: Anxiety, Depression Smoking Status: Never smoker Past Alcohol Use History: None Reported Past Drug Use History: None Reported - Past Family History Father History Unknown: Yes Mother History Unknown: Yes Family Medical History: COPD Additional Family Medical History / Comment(s): Mother has never smoked. Mother' s brother had diabetes and multiple sclerosis. Brother(s) Family Medical History: Diabetes Mellitus Additional Family Medical History / Comment(s): multiple sclerosis General Exam - General Exam Comments Initial Comments: Laying in exam room, uncomfortable secondary to pain Limitations: no limitations General appearance: alert, in no apparent distress Head exam: Present: atraumatic, normocephalic, normal inspection Eye exam: Present: normal appearance ENT exam: Present: normal exam Neck exam: Present: normal inspection Respiratory exam: Present: normal lung sounds bilaterally. Absent: respiratory distress Cardiovascular Exam: Present: regular rate, normal rhythm, normal heart sounds GI/Abdominal exam: Present: soft, tenderness, normal bowel sounds. Absent: distended, guarding, rebound, rigid Extremities exam: Present: normal inspection Back exam: Present: normal inspection Neurological exam: Present: alert, oriented X3, CN II-XII intact Psychiatric exam: Present: normal affect, normal mood Skin exam: Present: warm, dry, intact, normal color. Absent: rash Course Vital Signs 09/18/16 09/18/16 09/18/16 15:59 16:56 20:52 Temperature 97.2 F L 98.1 F Pulse Rate 84 84 Respiratory 16 19 Rate Blood Pressure 228/110 210/110 207/111 O2 Sat by Pulse 95 99 Oximetry - Reevaluation(s) Reevaluation #1: 09/18/16 18:56 Patient apparently rolled out of bed after receiving pain medications. Patient states he hit the top of his head. Patient denies loss of consciousness. Patient denies current nausea. Patient has changes in vision. Patient denies neck pain. Patient denies paresthesias. CT of brain will be ordered. Medical Decision Making - Medical Decision Making Patient is a 41-year-old male presents emergency room for reevaluation of abdominal pain, nausea and vomiting. Patient is type I diabetic and ESRD. patient is frequently here for the same complaint. BUN/creatinine is chronic for patient. Patient has dialysis tomorrow. Patient given insulin for elevated glucose level. patient also rolled off the bed hitting his head while he was here. Patient has small lump over left frontal scalp. Patient denies worsening nausea or headache. CT of brain negative for any acute findings. Patient's ride came early and patient wanted to be discharged immediately. Patient noted to have elevated blood pressure. Patient states she will take his medications when he gets home. Patient refuses any blood pressure medications here. Patient denies headache, dizziness, chest pain, shortness of breath. Advised patient to return for any worsening symptoms. I did discuss the patient that he will be leaving against medical advice due to elevated blood pressure. Return parameters discussed. Case discussed Dr. Khalil. - Lab Data Result diagrams: 09/18/16 18:30 09/18/16 18:30 Lab Results 09/18/16 09/18/16 09/18/16 Range/Units 18:30 18:30 20:24 WBC 8.0 (3.8-10.6) k/uL RBC 3.57 L (4.30-5.90) m/uL Hgb 10.9 L (13.0-17.5) gm/dL Hct 33.4 L (39.0-53.0) % MCV 93.6 (80.0-100.0) fL MCH 30.5 (25.0-35.0) pg MCHC 32.6 (31.0-37.0) g/dL RDW 19.2 H (11.5-15.5) % Plt Count 232 (150-450) k/uL Neutrophils % 80 % Lymphocytes % 10 % Monocytes % 5 % Eosinophils % 3 % Basophils % 1 % Neutrophils # 6.4 (1.3-7.7) k/uL Lymphocytes # 0.8 L (1.0-4.8) k/uL Monocytes # 0.4 (0-1.0) k/uL Eosinophils # 0.2 (0-0.7) k/uL Basophils # 0.1 (0-0.2) k/uL Anisocytosis Slight Macrocytosis Slight Sodium 140 (137-145) mmol/L Potassium 4.2 (3.5-5.1) mmol/L Chloride 95 L (98-107) mmol/L Carbon Dioxide 25 (22-30) mmol/L Anion Gap 20 mmol/L BUN 39 H (9-20) mg/dL Creatinine 8.10 H* (0.66-1.25) mg/dL Est GFR (MDRD) Af Amer 9 (>60 ml/min/1.73 sqM) Est GFR (MDRD) Non-Af 7 (>60 ml/min/1.73 sqM) Glucose 429 H (74-99) mg/dL POC Glucose (mg/dL) 341 H (75-99) mg/dL POC Glu Services Mgr ID Fidencio Sinha Calcium 10.1 (8.4-10.2) mg/dL Total Bilirubin 0.8 (0.2-1.3) mg/dL AST 17 (17-59) U/L ALT 40 (21-72) U/L Alkaline Phosphatase 200 H (38-126) U/L Total Protein 7.7 (6.3-8.2) g/dL Albumin 4.4 (3.5-5.0) g/dL Amylase 59 (30-110) U/L Lipase 143 (23-300) U/L Acetone, Qual Negative (Negative) - Radiology Data Radiology results: report reviewed, image reviewed Disposition Clinical Impression: Vomiting, Chronic kidney failure, Diabetes, Epigastric abdominal pain, Hypertension Disposition: Left Against Medical Advice Condition: Good Instructions: Abdominal Pain (ED) Additional Instructions: Take blood pressure medication and soon as you get home. Please follow up with primary care provider in 1-2 days. If any new symptom arises or symptoms worsen , return to ER as soon as possible. Prescriptions: Ondansetron Odt [Zofran Odt] 4 mg PO Q8HR PRN #12 tab PRN Reason: Nausea Referrals: Kala Onofre MD [Primary Care Provider] - 1-2 days Time of Disposition: 20:44
[2016-09-18 18:40] LABS: Anisocytosis Slight; Basophils # (A) 0.1 k/uL (0-0.2); Basophils % (A) 1 %; CH 30.7; Eosinophils # (A) 0.2 k/uL (0-0.7); Eosinophils % (A) 3 %; HCT 33.4 % (39.0-53.0); HDW 2.73; HGB 10.9 gm/dL (13.0-17.5); Luc # (Auto) 0.15; Luc % (Auto) 2; Lymphocytes # (A) 0.8 k/uL (1.0-4.8); Lymphocytes % (A) 10 %; MCH 30.5 pg (25.0-35.0); MCHC 32.6 g/dL (31.0-37.0); MCV 93.6 fL (80.0-100.0); Macrocytosis Slight; Mean Platelet Volume 8.1; Monocytes # (A) 0.4 k/uL (0-1.0); Monocytes % (A) 5 %; Neutrophils # (A) 6.4 k/uL (1.3-7.7); Neutrophils % (A) 80 %; RBC 3.57 m/uL (4.30-5.90); RDW 19.2 % (11.5-15.5); WBC (Perox) 8.43
[2016-09-18 18:51] LABS: ALT 40 U/L (21-72); AST 17 U/L (17-59); Alkaline Phosphatase 200 U/L (38-126); Amylase 59 U/L (30-110); Anion Gap 20 mmol/L; Blood Urea Nitrogen 39 mg/dL (9-20); Calcium 10.1 mg/dL (8.4-10.2); Carbon Dioxide 25 mmol/L (22-30); Chloride 95 mmol/L (98-107); Glucose 429 mg/dL (74-99); Potassium 4.2 mmol/L (3.5-5.1); Sodium 140 mmol/L (137-145); Total Bilirubin 0.8 mg/dL (0.2-1.3); Total Protein 7.7 g/dL (6.3-8.2)
[2016-09-18 18:58] LABS: Non-African American GFR(MDRD) 7 (>60 ml/min/1.73 sqM)
[2016-09-18] MEDS ORDERED: INSULIN REGULAR 100 UNIT/ML VIAL SQ STA ×2 (19:08→20:37)
--- NOTE | 2016-09-18 19:25 | CT ---
EXAMINATION TYPE: CT brain elissa hameed DATE OF EXAM: 09/18/2016 COMPARISON: CT brain 08/31/2012 HISTORY: Syncope and left sided head injury. CT DLP: 1406.80 mGycm Automated exposure control for dose reduction was used. TECHNIQUE: CT scan of the head and cervical spine are performed without contrast. FINDINGS: There is mild prominence of the ventricles. There is no mass effect nor midline shift. Th ere is no sign of intracranial hemorrhage. The calvarium is intact. There is mild mucosal thickening in the ethmoid sinuses. The cervical vertebra have normal alignment. There is narrowing at C5-6 disc space with spurring of t he endplates. Posterior elements are intact. I see no fracture. Facet joints are intact. The skull ba se is intact. There is atherosclerotic vascular calcification noted. Vertebral artery calcification i s present. IMPRESSION: Mild normal pressure type hydrocephalus. No acute intracranial abnormality. No change. There is new m ild ethmoid sinusitis. Spondylosis at C5-6. No fracture. Atherosclerotic vascular disease.
[2016-09-18 20:27] LABS: Glucose,Whole Blood 341 mg/dL (75-99)
[2016-09-18 20:54] VITALS: BP 207/111; RESP 19; TEMP 98.1
== END 2016-09-18 20:54 | disposition left against medical advice (07) ==
LOC: EC 15:24
DX: I12.0 Hypertensive chronic kidney disease with stage 5 chronic kidney disease or end stage renal disease (principal); E10.22 Type 1 diabetes mellitus with diabetic chronic kidney disease; N18.6 End stage renal disease; R10.13 Epigastric pain; R11.2 Nausea with vomiting, unspecified; R22.0 Localized swelling, mass and lump, head; I11.0 Hypertensive heart disease with heart failure; I50.9 Heart failure, unspecified; E10.65 Type 1 diabetes mellitus with hyperglycemia; K21.9 Gastro-esophageal reflux disease without esophagitis; E03.9 Hypothyroidism, unspecified; Z79.4 Long term (current) use of insulin; Z79.899 Other long term (current) drug therapy; Z88.5 Allergy status to narcotic agent; Z88.8 Allergy status to other drugs, medicaments and biological substances; Z90.49 Acquired absence of other specified parts of digestive tract; Z83.3 Family history of diabetes mellitus; Z99.2 Dependence on renal dialysis
CPT/HCPCS: 36415; 80053; 82150; 82009; 83690; 85025; 72125; 70450; 99284; 96374; 96375; 96361 ×2; J2405; J1170

== ENCOUNTER 2016-09-30 00:57 | Emergency (ER) | payer MEDICARE, OTHER ==
[2016-09-30] MEDS ORDERED: SODIUM CHLORIDE 0.9% 1,000 ML IV STA (01:21)
[2016-09-30] MEDS ORDERED: diphenhydrAMINE 50 MG/ML 1 ML VIAL IVP STA (01:21)
[2016-09-30] MEDS ORDERED: ONDANSETRON 4 MG/2 ML VIAL IVP STA ×2 (01:22→03:04)
[2016-09-30] MEDS ORDERED: FAMOTIDINE 20 MG/2 ML VIAL IV STA (01:36)
--- NOTE | 2016-09-30 01:39 | ED ---
General Adult HPI - General Chief complaint: Abdominal Pain Stated complaint: abd pain,vomiting Time Seen by Provider: 09/30/16 01:17 Source: patient, RN notes reviewed Mode of arrival: ambulatory Limitations: no limitations - History of Present Illness Initial comments: 41-year-old male with a past history of diabetes presents to the emergency Department chief complaint of nausea vomiting abdominal pain. He's been sick for the last day. He is out of his pain medication his blood pressure medications. His most recent glucose was 389. They state they were concerned due to his increased pain so they thought that they should be seen. They state there is no other symptoms and the patient at this time. He states his pain is moderate it's in the center of the abdomen much like his typical flareup. No radiation.Patient denies any recent fever, chills, shortness of breath, chest pain, back pain, numbness or tingling, dysuria or hematuria, constipation or diarrhea, headaches or visual changes, or any other current symptoms. - Related Data Home Medications Medication Instructions Recorded Confirmed LORazepam [Ativan] 1 mg PO DAILY PRN 06/06/14 09/30/16 Carvedilol [Coreg] 25 mg PO BID 07/10/14 09/30/16 amLODIPine BESYLATE [Amlodipine 10 mg PO DAILY 06/24/15 09/30/16 Besylate] Cinacalcet HCl [Sensipar] 60 mg PO HS 10/31/15 09/30/16 Insulin Glargine [Lantus] 12 unit SQ HS 01/12/16 09/30/16 Folic Acid-Vit B Complex-Vit C 1 cap PO DAILY 01/25/16 09/30/16 [Nephrocaps] Cyclobenzaprine [Flexeril] 10 mg PO HS PRN 02/20/16 09/30/16 INSULIN LISPRO (humaLOG) [humaLOG See Protocol SQ AC-TID 02/20/16 09/30/16 (formulary)] Omeprazole [PriLOSEC] 20 mg PO DAILY 02/20/16 09/30/16 HYDROmorphone [Dilaudid] 2 mg PO DAILY PRN 03/28/16 09/30/16 hydrALAZINE HCL [Apresoline] 100 mg PO TID 03/28/16 09/30/16 Lisinopril 5 mg PO DAILY 06/13/16 09/30/16 Calcium Acetate [PhosLo] 667 mg PO DAILY 07/13/16 09/30/16 Diphenoxylate HCl/Atropine 1 tab PO Q8H PRN 07/13/16 09/30/16 [Lomotil 2.5-0.025 mg Tablet] Famotidine [Pepcid] 20 mg PO DAILY PRN 07/13/16 09/30/16 diphenhydrAMINE HCL [Benadryl] 25 mg PO TID PRN 07/14/16 09/30/16 Previous Rx's Medication Instructions Recorded cloNIDine HCL [Catapres] 0.2 mg PO TID tab 02/20/16 Ondansetron Odt [Zofran Odt] 4 mg PO Q8HR PRN #12 tab 08/27/16 Ondansetron Odt [Zofran Odt] 4 mg PO Q8HR PRN #12 tab 09/18/16 Allergies Allergy/AdvReac Type Severity Reaction Status Date / Time codeine Allergy Rash/Hives Verified 09/30/16 01:03 metoclopramide HCl AdvReac Muscle Verified 09/30/16 01:03 [From Reglan] Spasms morphine AdvReac Increases Verified 09/30/16 01:03 Pain Review of Systems ROS Statement: Those systems with pertinent positive or pertinent negative responses have been documented in the HPI. ROS Other: All systems not noted in ROS Statement are negative. Past Medical History Past Medical History: Chest Pain / Angina, Heart Failure, CVA/TIA, Diabetes Mellitus, Dialysis, Eye Disorder, GERD/Reflux, Hypertension, Renal Disease, Seizure Disorder, Thyroid Disorder Additional Past Medical History / Comment(s): Chronic renal failure stage IV, hemodialysis M/W/FR -last done 08/24, past peritoneal dialysis with peritonitis , gastroparesis, cyclic vomiting, chronic abdominal pain, pancreatitis, IDDM type I brittle, heart murmur, heat stroke-no residual, diabetic retinopathy bilaterally, retinal detachment with surgery, hypothyroid, hiatal hernia, sinusitis, bronchitis, chronic back pain, anemia, last seizure in 2016. History of Any Multi-Drug Resistant Organisms: None Reported Past Surgical History: Cholecystectomy, Heart Catheterization, Hernia Repair Additional Past Surgical History / Comment(s): bilateral retinal reattachment sx , hemodialysis catheter in Feb 2013, lt arm fistual, L inguinal hernia, 2009 cardiac cath. Past Anesthesia/Blood Transfusion Reactions: No Reported Reaction Past Psychological History: Anxiety, Depression Smoking Status: Never smoker Past Alcohol Use History: None Reported Past Drug Use History: None Reported - Past Family History Father History Unknown: Yes Mother History Unknown: Yes Family Medical History: COPD Additional Family Medical History / Comment(s): Mother has never smoked. Mother' s brother had diabetes and multiple sclerosis. Brother(s) Family Medical History: Diabetes Mellitus Additional Family Medical History / Comment(s): multiple sclerosis General Exam - General Exam Comments Initial Comments: General: The patient is awake and alert, in no distress, and does not appear acutely ill. Eye: Pupils are equal, round and reactive to light, extra-ocular movements are intact; there is normal conjunctiva bilaterally. No signs of icterus. Ears, nose, mouth and throat: There are moist mucous membranes and no oral lesions. Neck: The neck is supple, there is no tenderness. Cardiovascular: There is a regular rate and rhythm. No murmur, rub or gallop is appreciated. Respiratory: Lungs are clear to auscultation, respirations are non-labored, breath sounds are equal. No wheezes, stridor, rales, or rhonchi. Gastrointestinal: Soft, non-distended, non-tender abdomen without masses or organomegaly noted. There is no rebound or guarding present. No CVA tenderness. Bowel sounds are unremarkable. Back: There is no tenderness to palpation in the midline. There is no obvious deformity. No rashes noted. Musculoskeletal: Normal ROM, no tenderness, There is no pedal edema. There is no calf tenderness or swelling. Sensation intact. Pulses equal bilaterally 2+. Neurological: CN II-XII intact, There are no obvious motor or sensory deficits. Coordination appears grossly intact. Speech is normal. Skin: Skin is warm and dry and no rashes or lesions are noted. Psychiatric: Cooperative, appropriate mood & affect, normal judgment. Limitations: no limitations Course Vital Signs 09/30/16 09/30/16 01:01 02:10 Temperature 98.6 F Pulse Rate 87 79 Respiratory 18 20 Rate Blood Pressure 218/102 189/86 O2 Sat by Pulse 93 L 95 Oximetry Medical Decision Making - Medical Decision Making 41-year-old male presents emergency chief complaint of nausea vomiting and abdominal pain. This time lab work is reviewed. Patient is due for dialysis on Saturday. We discussed the importance of this. We did discuss we will treat pain prior to discharge. We discussed close follow-up with Dr. suero parameters all his questions. Family stated they understood and management plan. They will be discharged. - Lab Data Result diagrams: 09/30/16 01:50 09/30/16 01:50 Lab Results 09/30/16 09/30/16 09/30/16 Range/Units 01:50 01:50 01:50 WBC 9.0 (3.8-10.6) k/uL RBC 3.52 L (4.30-5.90) m/uL Hgb 10.7 L (13.0-17.5) gm/dL Hct 33.4 L (39.0-53.0) % MCV 94.7 (80.0-100.0) fL MCH 30.5 (25.0-35.0) pg MCHC 32.2 (31.0-37.0) g/dL RDW 18.6 H (11.5-15.5) % Plt Count 251 (150-450) k/uL Neutrophils % 73 % Lymphocytes % 13 % Monocytes % 6 % Eosinophils % 4 % Basophils % 1 % Neutrophils # 6.5 (1.3-7.7) k/uL Lymphocytes # 1.2 (1.0-4.8) k/uL Monocytes # 0.5 (0-1.0) k/uL Eosinophils # 0.4 (0-0.7) k/uL Basophils # 0.1 (0-0.2) k/uL Anisocytosis Slight Macrocytosis Slight PT 11.1 (9.0-12.0) sec INR 1.1 (<1.2) APTT 26.0 (22.0-30.0) sec Sodium 146 H (137-145) mmol/L Potassium 4.5 (3.5-5.1) mmol/L Chloride 97 L (98-107) mmol/L Carbon Dioxide 25 (22-30) mmol/L Anion Gap 24 mmol/L BUN 83 H* (9-20) mg/dL Creatinine 8.50 H* (0.66-1.25) mg/dL Est GFR (MDRD) Af Amer 9 (>60 ml/min/1.73 sqM) Est GFR (MDRD) Non-Af 7 (>60 ml/min/1.73 sqM) Glucose 82 (74-99) mg/dL Calcium 9.9 (8.4-10.2) mg/dL Phosphorus 8.0 H* (2.5-4.5) mg/dL Magnesium 2.1 (1.6-2.3) mg/dL Total Bilirubin 1.0 (0.2-1.3) mg/dL AST 25 (17-59) U/L ALT 41 (21-72) U/L Alkaline Phosphatase 172 H (38-126) U/L Total Protein 7.5 (6.3-8.2) g/dL Albumin 4.4 (3.5-5.0) g/dL Amylase 74 (30-110) U/L Lipase 127 (23-300) U/L Acetone, Qual Negative (Negative) - Radiology Data Radiology results: report reviewed, image reviewed Disposition Clinical Impression: Intractable vomiting, Hypertension, poor control, Noncompliance with medication regimen, Intractable nausea and vomiting, Hemodialysis patient, Intractable abdominal pain Disposition: HOME SELF-CARE Condition: Stable Instructions: Abdominal Pain (ED) Additional Instructions: Please use medication as discussed. Please follow up with family doctor if symptoms have not improved over the next two days. Please return to the emergency room if your symptoms increase or worsen or for any other concerns. Referrals: Kala Onofre MD [Primary Care Provider] - 1-2 days Time of Disposition: 03:06
[2016-09-30 02:06] LABS: Anisocytosis Slight; Basophils # (A) 0.1 k/uL (0-0.2); Basophils % (A) 1 %; CH 30.4; CHCM 32.3; Eosinophils # (A) 0.4 k/uL (0-0.7); Eosinophils % (A) 4 %; HCT 33.4 % (39.0-53.0); HDW 2.81; HGB 10.7 gm/dL (13.0-17.5); Luc # (Auto) 0.33; Luc % (Auto) 4; Lymphocytes # (A) 1.2 k/uL (1.0-4.8); Lymphocytes % (A) 13 %; MCH 30.5 pg (25.0-35.0); MCHC 32.2 g/dL (31.0-37.0); MCV 94.7 fL (80.0-100.0); Macrocytosis Slight; Mean Platelet Volume 7.7; Monocytes # (A) 0.5 k/uL (0-1.0); Monocytes % (A) 6 %; Neutrophils # (A) 6.5 k/uL (1.3-7.7); Neutrophils % (A) 73 %; RBC 3.52 m/uL (4.30-5.90); RDW 18.6 % (11.5-15.5); WBC (Perox) 9.16
[2016-09-30 02:14] LABS: INR 1.1 (<1.2); Prothrombin Time 11.1 sec (9.0-12.0)
[2016-09-30 02:18] LABS: ALT 41 U/L (21-72); AST 25 U/L (17-59); Alkaline Phosphatase 172 U/L (38-126); Amylase 74 U/L (30-110); Anion Gap 24 mmol/L; Calcium 9.9 mg/dL (8.4-10.2); Carbon Dioxide 25 mmol/L (22-30); Chloride 97 mmol/L (98-107); Glucose 82 mg/dL (74-99); Magnesium 2.1 mg/dL (1.6-2.3); Potassium 4.5 mmol/L (3.5-5.1); Sodium 146 mmol/L (137-145); Total Protein 7.5 g/dL (6.3-8.2)
[2016-09-30 02:25] LABS: Non-African American GFR(MDRD) 7 (>60 ml/min/1.73 sqM)
[2016-09-30 02:27] LABS: Blood Urea Nitrogen 83 mg/dL (9-20)
--- NOTE | 2016-09-30 02:34 | XR ---
EXAM: XR Abdomen Complete, 2 or More Views CLINICAL HISTORY: diarrhea, vomiting abd pain TECHNIQUE: Frontal view of the abdomen/pelvis with upright view of the abdomen. COMPARISON: 09/14/2016 FINDINGS: Intraperitoneal space: No free air. Gastrointestinal tract: Unremarkable. No dilation. Organs: Patient status post cholecystectomy. Bones/joints: Unremarkable. Vasculature: Wall thickening of the transverse and probably the descending colon suggested, likely representing colitis, which is probably secondary to an infectious versus inflammatory etiology. Given the extensive atherosclerotic vascular calcifications, ischemic colitis would be included in differential. No evidence of obstruction. Extensive atherosclerotic vascular calcifications seen throughout, which is unusual in a patient of this age. Correlate clinically IMPRESSION: Wall thickening of the transverse and probably the descending colon suggested, likely representing colitis, which is probably secondary to an infectious versus inflammatory etiology. Given the extensive atherosclerotic vascular calcifications, ischemic colitis would be included in differential. No evidence of obstruction. Correlate clinically.
[2016-09-30] MEDS ORDERED: LORazepam 2 MG/ML SYRINGE IV STA (03:04)
[2016-09-30] MEDS ORDERED: HYDROmorphone 1 MG/ML 1 ML SYRINGE IVP STA (03:04)
[2016-09-30] MEDS ORDERED: LABETALOL 5 MG/ML VIAL MDV IVP STA (03:05)
[2016-09-30 03:52] VITALS: BP 165/79; PULSE 77; RESP 20; TEMP 98.4
== END 2016-09-30 03:52 | disposition home or self-care (01) ==
LOC: EC 00:57
DX: R10.9 Unspecified abdominal pain (principal); R11.2 Nausea with vomiting, unspecified; I10 Essential (primary) hypertension; Z99.2 Dependence on renal dialysis; Z91.15 Patient's noncompliance with renal dialysis; I13.0 Hypertensive heart and chronic kidney disease with heart failure and stage 1 through stage 4 chronic kidney disease, or unspecified chronic kidney disease; I50.9 Heart failure, unspecified; N18.4 Chronic kidney disease, stage 4 (severe); E10.22 Type 1 diabetes mellitus with diabetic chronic kidney disease; K21.9 Gastro-esophageal reflux disease without esophagitis; E03.9 Hypothyroidism, unspecified; Z86.73 Personal history of transient ischemic attack (TIA), and cerebral infarction without residual deficits; D64.9 Anemia, unspecified; F32.9 Major depressive disorder, single episode, unspecified; F41.9 Anxiety disorder, unspecified; Z79.4 Long term (current) use of insulin; Z79.899 Other long term (current) drug therapy; Z88.5 Allergy status to narcotic agent; Z88.8 Allergy status to other drugs, medicaments and biological substances
CPT/HCPCS: 36415; 80053; 82150; 82009; 83690; 83735; 84100; 85025; 85610; 85730; 74020; 99284; 96374; 96375 ×5; 96376; 96361 ×2; J2060; J1200; J2405; J1170

== ENCOUNTER 2016-09-30 08:22 | Inpatient (IN) | payer MEDICARE, OTHER ==
[2016-09-30] MEDS ORDERED: ONDANSETRON 4 MG/2 ML VIAL IVP STA (08:27)
[2016-09-30] MEDS ORDERED: SODIUM CHLORIDE 0.9% 1,000 ML IV STA ×2 (08:27)
[2016-09-30] MEDS ORDERED: HYDROmorphone 1 MG/ML 1 ML SYRINGE IVP STA (08:27)
[2016-09-30] MEDS ORDERED: LORazepam 2 MG/ML SYRINGE IV STA (08:28)
[2016-09-30 08:57] LABS: Anisocytosis Slight; Basophils # (A) 0.1 k/uL (0-0.2); Basophils % (A) 1 %; CH 30.3; CHCM 32.1; Eosinophils # (A) 0.4 k/uL (0-0.7); Eosinophils % (A) 4 %; HCT 33.5 % (39.0-53.0); HDW 2.82; HGB 10.9 gm/dL (13.0-17.5); Hypochromasia Slight; Luc # (Auto) 0.29; Luc % (Auto) 3; Lymphocytes # (A) 1.1 k/uL (1.0-4.8); Lymphocytes % (A) 12 %; MCH 30.9 pg (25.0-35.0); MCHC 32.4 g/dL (31.0-37.0); MCV 95.3 fL (80.0-100.0); Macrocytosis Slight; Mean Platelet Volume 7.8; Monocytes # (A) 0.6 k/uL (0-1.0); Monocytes % (A) 7 %; Neutrophils # (A) 6.9 k/uL (1.3-7.7); Neutrophils % (A) 73 %; RBC 3.52 m/uL (4.30-5.90); RDW 18.7 % (11.5-15.5); WBC 9.3 k/uL (3.8-10.6); WBC (Perox) 9.65
[2016-09-30 09:09] LABS: ALT 43 U/L (21-72); AST 28 U/L (17-59); Alkaline Phosphatase 183 U/L (38-126); Amylase 86 U/L (30-110); Anion Gap 25 mmol/L; Carbon Dioxide 21 mmol/L (22-30); Chloride 100 mmol/L (98-107); Glucose 96 mg/dL (74-99); Potassium 4.8 mmol/L (3.5-5.1); Sodium 146 mmol/L (137-145); Total Protein 7.8 g/dL (6.3-8.2)
[2016-09-30 09:12] LABS: Non-African American GFR(MDRD) 7 (>60 ml/min/1.73 sqM)
[2016-09-30 09:19] LABS: Blood Urea Nitrogen 84 mg/dL (9-20)
--- NOTE | 2016-09-30 09:39 | ED ---
General Adult HPI - General Source: patient, EMS, RN notes reviewed Mode of arrival: EMS <Ruddy Napier - Last Filed: 09/30/16 09:45> <Trevin Sanchez - Last Filed: 09/30/16 10:02> - General Chief complaint: Abdominal Pain Stated complaint: abd pain Time Seen by Provider: 09/30/16 08:26 - History of Present Illness Initial comments: Patient 41-year-old male with significant past medical history for gastroparesis , dialysis, who presents emergency room today with a chief complaint of abdominal pain. Patient presents by EMS today. He was seen earlier this morning approximately 5 hours ago for same complaint. He is discharged home. States pain started once again after he got home. States pain is located in the epigastric area this is consistent with his chronic abdominal pain. Does admit to increased nausea. Patient denies any other complaints or symptoms. Patient denies any recent fever, chills, shortness of breath, chest pain, back pain, numbness or tingling, dysuria or hematuria, constipation or diarrhea, headaches or visual changes, or any other complaints. (Ruddy Napier) - Related Data Home Medications Medication Instructions Recorded Confirmed LORazepam [Ativan] 1 mg PO DAILY PRN 06/06/14 09/30/16 Carvedilol [Coreg] 25 mg PO BID 07/10/14 09/30/16 amLODIPine BESYLATE [Amlodipine 10 mg PO DAILY 06/24/15 09/30/16 Besylate] Cinacalcet HCl [Sensipar] 60 mg PO HS 10/31/15 09/30/16 Insulin Glargine [Lantus] 12 unit SQ HS 01/12/16 09/30/16 Folic Acid-Vit B Complex-Vit C 1 cap PO DAILY 01/25/16 09/30/16 [Nephrocaps] Cyclobenzaprine [Flexeril] 10 mg PO HS PRN 02/20/16 09/30/16 INSULIN LISPRO (humaLOG) [humaLOG See Protocol SQ AC-TID 02/20/16 09/30/16 (formulary)] Omeprazole [PriLOSEC] 20 mg PO DAILY 02/20/16 09/30/16 HYDROmorphone [Dilaudid] 2 mg PO DAILY PRN 03/28/16 09/30/16 hydrALAZINE HCL [Apresoline] 100 mg PO TID 03/28/16 09/30/16 Lisinopril 5 mg PO DAILY 06/13/16 09/30/16 Calcium Acetate [PhosLo] 667 mg PO DAILY 07/13/16 09/30/16 Diphenoxylate HCl/Atropine 1 tab PO Q8H PRN 07/13/16 09/30/16 [Lomotil 2.5-0.025 mg Tablet] Famotidine [Pepcid] 20 mg PO DAILY PRN 07/13/16 09/30/16 diphenhydrAMINE HCL [Benadryl] 25 mg PO TID PRN 07/14/16 09/30/16 Previous Rx's Medication Instructions Recorded cloNIDine HCL [Catapres] 0.2 mg PO TID tab 02/20/16 Ondansetron Odt [Zofran Odt] 4 mg PO Q8HR PRN #12 tab 08/27/16 Ondansetron Odt [Zofran Odt] 4 mg PO Q8HR PRN #12 tab 09/18/16 Allergies Allergy/AdvReac Type Severity Reaction Status Date / Time codeine Allergy Rash/Hives Verified 09/30/16 01:03 metoclopramide HCl AdvReac Muscle Verified 09/30/16 01:03 [From Reglan] Spasms morphine AdvReac Increases Verified 09/30/16 01:03 Pain Review of Systems ROS Other: All systems not noted in ROS Statement are negative. <Ruddy Napier - Last Filed: 09/30/16 09:45> ROS Other: All systems not noted in ROS Statement are negative. <Trevin Sanchez - Last Filed: 09/30/16 10:02> ROS Statement: Those systems with pertinent positive or pertinent negative responses have been documented in the HPI. Past Medical History Past Medical History: Chest Pain / Angina, Heart Failure, CVA/TIA, Diabetes Mellitus, Dialysis, Eye Disorder, GERD/Reflux, Hypertension, Renal Disease, Seizure Disorder, Thyroid Disorder Additional Past Medical History / Comment(s): Chronic renal failure stage IV, hemodialysis M/W/FR, past peritoneal dialysis with peritonitis, gastroparesis, cyclic vomiting, chronic abdominal pain, pancreatitis, IDDM type I brittle, heart murmur, heat stroke-no residual, diabetic retinopathy bilaterally, retinal detachment with surgery, hypothyroid, hiatal hernia, sinusitis, bronchitis, chronic back pain, anemia, last seizure in 2016. History of Any Multi-Drug Resistant Organisms: None Reported Past Surgical History: Cholecystectomy, Heart Catheterization, Hernia Repair Additional Past Surgical History / Comment(s): bilateral retinal reattachment sx , hemodialysis catheter in Feb 2013, lt arm fistual, L inguinal hernia, 2009 cardiac cath. Past Anesthesia/Blood Transfusion Reactions: No Reported Reaction Past Psychological History: Anxiety, Depression Smoking Status: Never smoker Past Alcohol Use History: None Reported Past Drug Use History: None Reported - Past Family History Father History Unknown: Yes Mother History Unknown: Yes Family Medical History: COPD Additional Family Medical History / Comment(s): Mother has never smoked. Mother' s brother had diabetes and multiple sclerosis. Brother(s) Family Medical History: Diabetes Mellitus Additional Family Medical History / Comment(s): multiple sclerosis <Ruddy Napier - Last Filed: 09/30/16 09:45> General Exam <Ruddy Napier - Last Filed: 09/30/16 09:45> <Trevin Sanchez - Last Filed: 09/30/16 10:02> - General Exam Comments Initial Comments: General: The patient is awake and alert, in no distress, and does not appear acutely ill. Eye: Pupils are equal, round and reactive to light, extra-ocular movements are intact. No nystagmus. There is normal conjunctiva bilaterally. No signs of icterus. Ears, nose, mouth and throat: There are moist mucous membranes and no oral lesions. Neck: The neck is supple, there is no tenderness or JVD. Cardiovascular: There is a regular rate and rhythm. No murmur, rub or gallop is appreciated. Respiratory: Lungs are clear to auscultation, respirations are non-labored, breath sounds are equal. No wheezes, stridor, rales, or rhonchi. Gastrointestinal: Normal appearance abdomen. Normal bowel sounds. Abdomen soft on palpation. Patient does have tenderness epigastric. No rebound or guarding. No CVA tenderness. Musculoskeletal: Normal ROM, no tenderness. Strength 5/5. Sensation intact. Pulses equal bilaterally 2+. Neurological: A&O x 3. CN II-XII intact, There are no obvious motor or sensory deficits. Coordination appears grossly intact. Speech is normal. Skin: Skin is warm and dry and no rashes or lesions are noted. Psychiatric: Cooperative, appropriate mood & affect, normal judgment. ( Ruddy Napier) Course <Ruddy Napier - Last Filed: 09/30/16 09:45> <Trevin Sanchez - Last Filed: 09/30/16 10:02> Vital Signs 09/30/16 08:23 Temperature 97.5 F L Pulse Rate 73 Respiratory 20 Rate Blood Pressure 186/99 O2 Sat by Pulse 95 Oximetry - Reevaluation(s) Reevaluation #1: 09/30/16 10:02 I did personally evaluate the patient and interview him. Patient has intractable bowel pain and vomiting. He has renal failure. He will be admitted I did discuss case with Dr. Juan. (Trevin Sanchez) Medical Decision Making - Lab Data Result diagrams: 09/30/16 08:30 09/30/16 08:30 <Ruddy Napier - Last Filed: 09/30/16 09:45> - Lab Data Result diagrams: 09/30/16 08:30 09/30/16 08:30 <Trevin Sanchez - Last Filed: 09/30/16 10:02> - Medical Decision Making Case discussed in detail with attending physician Patient reexamined at this time shows no signs of distress resting comfortably. Patient labs been reviewed does show elevated BUN/creatinine. He is a dialysis patient on Saturday , Wednesdays, and Fridays. Patient's due for dialysis tomorrow. Patient was seen recently here in the emergency room had a x-ray obtained approximately 5-6 hours ago which did show some evidence of colitis. At this time patient is resting comfortably. His lactic acid is negative. No elevated white count. He admits that this pain is consistent with chronic abdominal pain that is had in the past located in the epigastric area. Patient will be admitted for further observation and treatment of his intractable abdominal pain and nausea vomiting. (Ruddy Napier) - Lab Data Lab Results 09/30/16 09/30/16 09/30/16 Range/Units 08:27 08:30 08:30 WBC 9.3 (3.8-10.6) k/uL RBC 3.52 L (4.30-5.90) m/uL Hgb 10.9 L (13.0-17.5) gm/dL Hct 33.5 L (39.0-53.0) % MCV 95.3 (80.0-100.0) fL MCH 30.9 (25.0-35.0) pg MCHC 32.4 (31.0-37.0) g/dL RDW 18.7 H (11.5-15.5) % Plt Count 254 (150-450) k/uL Neutrophils % 73 % Lymphocytes % 12 % Monocytes % 7 % Eosinophils % 4 % Basophils % 1 % Neutrophils # 6.9 (1.3-7.7) k/uL Lymphocytes # 1.1 (1.0-4.8) k/uL Monocytes # 0.6 (0-1.0) k/uL Eosinophils # 0.4 (0-0.7) k/uL Basophils # 0.1 (0-0.2) k/uL Hypochromasia Slight Anisocytosis Slight Macrocytosis Slight Sodium 146 H (137-145) mmol/L Potassium 4.8 (3.5-5.1) mmol/L Chloride 100 (98-107) mmol/L Carbon Dioxide 21 L (22-30) mmol/L Anion Gap 25 mmol/L BUN 84 H* (9-20) mg/dL Creatinine 9.10 H* (0.66-1.25) mg/dL Est GFR (MDRD) Af Amer 8 (>60 ml/min/1.73 sqM) Est GFR (MDRD) Non-Af 7 (>60 ml/min/1.73 sqM) Glucose 96 (74-99) mg/dL Plasma Lactic Acid Ronaldo 0.9 (0.7-2.0) mmol/L Calcium 10.0 (8.4-10.2) mg/dL Total Bilirubin 1.0 (0.2-1.3) mg/dL AST 28 (17-59) U/L ALT 43 (21-72) U/L Alkaline Phosphatase 183 H (38-126) U/L Total Protein 7.8 (6.3-8.2) g/dL Albumin 4.6 (3.5-5.0) g/dL Amylase 86 (30-110) U/L Lipase 113 (23-300) U/L Acetone, Qual Negative (Negative) Disposition Time of Disposition: 09:46 <Ruddy Napier - Last Filed: 08/13/17 09:45> <Trevin Sanchez - Last Filed: 09/30/16 10:02> Clinical Impression: Intractable abdominal pain, Nausea & vomiting, Chronic renal failure syndrome Disposition: ADMITTED IP TO THIS [facility] Condition: Stable Referrals: Kala Onofre MD [Primary Care Provider] - 1-2 days
[2016-09-30] MEDS ORDERED: ONDANSETRON 4 MG/2 ML VIAL IVP PRN (09:47)
[2016-09-30] MEDS ORDERED: NALOXONE 0.4 MG/ML 1 ML VIAL IV PRN (09:47)
[2016-09-30] MEDS ORDERED: ACETAMINOPHEN TAB 325 MG TAB PO PRN (09:47)
[2016-09-30] MEDS ORDERED: LORazepam 2 MG/ML SYRINGE IV PRN (09:47)
[2016-09-30] MEDS ORDERED: hydrALAZINE HCL 20 MG/ML 1 ML VIAL IVP STA (10:06)
[2016-09-30] MEDS ORDERED: cloNIDine 0.3 MG/24HR PATCH 1 PATCH PATCH TRANSDERM SCH (10:15)
[2016-09-30] MEDS: HYDROmorphone 1 MG/ML 1 ML SYRINGE IV PRN ×4 (11:25→21:16)
[2016-09-30] MEDS ORDERED: DIPHENOX-ATROP 2.5-0.025 MG 1 EACH TAB PO PRN (11:39)
[2016-09-30] MEDS ORDERED: diphenhydrAMINE 25 MG CAP PO PRN (11:39)
[2016-09-30] MEDS ORDERED: CYCLOBENZAPRINE 10 MG TAB PO PRN (11:39)
--- NOTE | 2016-09-30 11:56 | P.NPCON ---
History of Present Illness - Reason for Consult end stage renal disease - History of Present Illness Reason for consultation: End-stage renal disease History of present illness: Patient is a 41-year-old male seen in renal consultation for end-stage renal disease. He is maintained on hemodialysis on a Saturday schedule. Patient's last hemodialysis treatment was on Saturday. Patient states he developed abdominal pain along with nausea and vomiting yesterday morning after taking his medications. He did come to the ER and was subsequently discharged with supportive measures. However his symptoms continued to get worse and he presented back to the hospital and is currently admitted. Patient states he's not been able to tolerate much oral intake for the last 24 hours. Denies chest pain or shortness of breath. He continues to have abdominal pain and nausea. Hemodynamically stable. Patient does have a long-standing history of insulin-dependent diabetes mellitus and has recurrent admissions for gastroparesis flare. Denies any fever or chills. Vital signs are stable. General: The patient appeared well nourished and normally developed. HEENT: Head exam is unremarkable. Neck is without jugular venous distension. LUNGS: Lungs are clear to auscultation and percussion. Breath sounds decreased. HEART: Rate and Rhythm are regular. First and second heart sounds normal. No murmurs, rubs or gallops. ABDOMEN: Abdominal exam reveals normal bowel sounds. Tender to palpation. EXTREMITITES: No clubbing, cyanosis, or edema. Past Medical History Past Medical History: Chest Pain / Angina, Heart Failure, CVA/TIA, Diabetes Mellitus, Dialysis, Eye Disorder, GERD/Reflux, Hypertension, Renal Disease, Seizure Disorder, Thyroid Disorder Additional Past Medical History / Comment(s): Chronic renal failure stage IV, hemodialysis M/W/FR, past peritoneal dialysis with peritonitis, gastroparesis, cyclic vomiting, chronic abdominal pain, pancreatitis, IDDM type I brittle, heart murmur, heat stroke-no residual, diabetic retinopathy bilaterally, retinal detachment with surgery, hypothyroid, hiatal hernia, sinusitis, bronchitis, chronic back pain, anemia, last seizure in 2015. History of Any Multi-Drug Resistant Organisms: None Reported Past Surgical History: Cholecystectomy, Heart Catheterization, Hernia Repair Additional Past Surgical History / Comment(s): bilateral retinal reattachment sx , hemodialysis catheter in Feb 2013, lt arm fistual, L inguinal hernia, 2010 cardiac cath. Past Anesthesia/Blood Transfusion Reactions: No Reported Reaction Past Psychological History: Anxiety, Depression Additional Psychological History / Comment(s): Pt has his mother living with him. He uses no assistive device. He drives. Smoking Status: Never smoker Past Alcohol Use History: None Reported Additional Past Alcohol Use History / Comment(s): STARTED SMOKING AT AGE 18 SMOKED SOCIALLY AND QUIT 1998. Past Drug Use History: None Reported Additional Drug Use History / Comment(s): PAST medical Marijuana use in high school. - Past Family History Father History Unknown: Yes Mother History Unknown: Yes Family Medical History: COPD Additional Family Medical History / Comment(s): Mother has never smoked. Mother' s brother had diabetes and multiple sclerosis. Brother(s) Family Medical History: Diabetes Mellitus Additional Family Medical History / Comment(s): multiple sclerosis Medications and Allergies Home Medications Medication Instructions Recorded Confirmed Type LORazepam [Ativan] 1 mg PO DAILY PRN 06/06/14 09/30/16 History Carvedilol [Coreg] 25 mg PO BID 07/10/14 09/30/16 History amLODIPine BESYLATE [Amlodipine 10 mg PO DAILY 06/24/15 09/30/16 History Besylate] Cinacalcet HCl [Sensipar] 60 mg PO HS 10/31/15 09/30/16 History Insulin Glargine [Lantus] 12 unit SQ HS 01/12/16 09/30/16 History Folic Acid-Vit B Complex-Vit C 1 cap PO DAILY 01/25/16 09/30/16 History [Nephrocaps] Cyclobenzaprine [Flexeril] 10 mg PO HS PRN 02/20/16 09/30/16 History INSULIN LISPRO (humaLOG) [humaLOG See Protocol SQ AC-TID 02/20/16 09/30/16 History (formulary)] Omeprazole [PriLOSEC] 20 mg PO DAILY 02/20/16 09/30/16 History HYDROmorphone [Dilaudid] 2 mg PO DAILY PRN 03/28/16 09/30/16 History hydrALAZINE HCL [Apresoline] 100 mg PO TID 03/28/16 09/30/16 History Lisinopril 5 mg PO DAILY 06/13/16 09/30/16 History Calcium Acetate [PhosLo] 667 mg PO DAILY 07/13/16 09/30/16 History Diphenoxylate HCl/Atropine 1 tab PO Q8H PRN 07/13/16 09/30/16 History [Lomotil 2.5-0.025 mg Tablet] Famotidine [Pepcid] 20 mg PO DAILY PRN 07/13/16 09/30/16 History diphenhydrAMINE HCL [Benadryl] 25 mg PO TID PRN 07/14/16 09/30/16 History Allergies Allergy/AdvReac Type Severity Reaction Status Date / Time codeine Allergy Rash/Hives Verified 09/30/16 10:11 metoclopramide HCl AdvReac Muscle Verified 09/30/16 10:11 [From Reglan] Spasms morphine AdvReac Increases Verified 09/30/16 10:11 Pain Physical Exam Vitals: Vital Signs Temp Pulse Resp BP Pulse Ox 09/30/16 10:36 97.8 F 84 18 157/85 94 L 09/30/16 10:29 97.8 F 83 18 157/85 94 L 09/30/16 08:23 97.5 F L 73 20 186/99 95 Intake and Output 09/29/16 09/30/16 09/30/16 22:59 06:59 14:59 Intake Total 1000 Balance 1000 Intake: Amount of Fluid Infused ( 1000 ml) Other: Weight 63.503 kg Patient Weight 10/01/16 06:59 Weight 63.503 kg Results - Lab Results Most recent lab results Calcium 10.0 mg/dL (8.4-10.2) 09/30/16 08:30 09/30/16 08:30 09/30/16 08:30 Assessment and Plan Plan: Assessment: #1. End-stage renal disease maintained on hemodialysis on a Saturday schedule. #2. Nausea vomiting with abdominal pain likely secondary to diabetic gastroparesis flare. #3. Hypertension with chronic kidney disease. Uncontrolled. Partially related to gastroparesis flare. #4. Chronic kidney disease mineral bone disease. #5. Insulin-dependent diabetes mellitus. Plan: Hemodialysis tomorrow. I will decrease rate of IV fluids to 50 mL an hour. Continue with pain control and antiemetics. Maintain PhosLo with meals. Thank you for the consultation. I will continue to follow the patient with you during his hospital stay.
--- NOTE | 2016-09-30 12:27 | XR ---
EXAMINATION TYPE: XR chest 1V portable DATE OF EXAM: 09/30/2016 COMPARISON: July 03, 2016. HISTORY: Shortness of breath with abdominal pain TECHNIQUE: Single frontal view of the chest is obtained. FINDINGS: There are bilateral opacities which could be related to atelectasis, pneumonia, or other e tiologies. The patient is in expiration which makes this examination very suboptimal. The cardiac swetha houette is mildly enlarged and stable. No pneumothorax is identified. No definite pleural effusion is identified. IMPRESSION: Bilateral opacities which are felt to be due to technique. The possibility of atelectasi s and/or pulmonary edema is difficult to exclude. Standard views in the department could be obtained if warranted and the patient is stable.
[2016-09-30 12:34] LABS: Glucose,Whole Blood 114 mg/dL (75-99)
[2016-09-30] MEDS: hydrALAZINE HCL 50 MG TAB PO SCH ×3 (13:58→21:15)
[2016-09-30] MEDS: amLODIPine 10 MG TAB PO SCH (13:59)
[2016-09-30] MEDS: LISINOPRIL 5 MG TAB PO SCH (13:59)
[2016-09-30] MEDS: CALCIUM ACETATE 667 MG CAP PO SCH (13:59)
[2016-09-30] MEDS: FOLIC ACID-VIT B COMPLEX-VIT C 1 CAP PO SCH (13:59)
[2016-09-30] MEDS: INSULIN LISPRO (humaLOG) 300 UNIT/3 ML VIAL SQ SCH ×3 (14:00→23:57)
[2016-09-30 17:13] LABS: Glucose,Whole Blood 153 mg/dL (75-99)
[2016-09-30] MEDS: CARVEDILOL 12.5 MG TAB PO SCH (18:40)
[2016-09-30] MEDS ORDERED: HYDROmorphone 1 MG/ML 1 ML SYRINGE IVP PRN (20:28)
[2016-09-30 20:47] LABS: Hemoglobin A1C 7.6 % (4.2-6.1)
[2016-09-30] MEDS ORDERED: chlorproMAZINE 25 MG TAB PO PRN (20:47)
[2016-09-30] MEDS ORDERED: CINACALCET 30 MG TAB PO SCH (21:00)
[2016-09-30] MEDS ORDERED: INSULIN GLARGINE 100 UNIT/ML 10 ML VIAL SQ SCH (21:00)
[2016-09-30] MEDS: PANTOPRAZOLE 40 MG/10 ML VIAL IVP SCH (21:15)
[2016-09-30] MEDS: ONDANSETRON 4 MG/2 ML VIAL IVP PRN (21:16)
[2016-09-30 21:25] LABS: Glucose,Whole Blood 154 mg/dL (75-99)
[2016-09-30] MEDS: HEPARIN SODIUM,PORCINE 5,000 UNIT/ML 1 ML VIAL SQ SCH (23:53)
[2016-10-01] MEDS: ONDANSETRON 4 MG/2 ML VIAL IVP PRN ×2 (03:42→09:01)
[2016-10-01] MEDS: HYDROmorphone 1 MG/ML 1 ML SYRINGE IV PRN ×3 (03:50→13:33)
[2016-10-01 07:55] LABS: Glucose,Whole Blood 92 mg/dL (75-99)
[2016-10-01 08:10] VITALS: TEMP 97.8
[2016-10-01] MEDS: FOLIC ACID-VIT B COMPLEX-VIT C 1 CAP PO SCH ×2 (08:35→08:44)
[2016-10-01] MEDS: CARVEDILOL 12.5 MG TAB PO SCH ×2 (08:35→08:43)
[2016-10-01] MEDS: PANTOPRAZOLE 40 MG/10 ML VIAL IVP SCH (08:35)
[2016-10-01] MEDS: CALCIUM ACETATE 667 MG CAP PO SCH ×2 (08:36→08:43)
[2016-10-01] MEDS: INSULIN LISPRO (humaLOG) 300 UNIT/3 ML VIAL SQ SCH ×2 (08:43→12:51)
[2016-10-01] MEDS: HEPARIN SODIUM,PORCINE 5,000 UNIT/ML 1 ML VIAL SQ SCH (08:45)
[2016-10-01 09:31] LABS: Calcium 8.6 mg/dL (8.4-10.2); Potassium 4.6 mmol/L (3.5-5.1); Total Bilirubin 0.8 mg/dL (0.2-1.3); Total Protein 7.3 g/dL (6.3-8.2)
[2016-10-01 09:44] LABS: Anisocytosis Slight; Basophils # (A) 0.1 k/uL (0-0.2); Basophils % (A) 1 %; CH 30.8; Eosinophils # (A) 0.3 k/uL (0-0.7); Eosinophils % (A) 5 %; HDW 2.71; HGB 9.9 gm/dL (13.0-17.5); Hypochromasia Slight; Luc # (Auto) 0.21; Luc % (Auto) 3; Lymphocytes # (A) 0.9 k/uL (1.0-4.8); Lymphocytes % (A) 12 %; MCH 30.2 pg (25.0-35.0); MCHC 30.2 g/dL (31.0-37.0); MCV 100.2 fL (80.0-100.0); Macrocytosis Moderate; Mean Platelet Volume 8.4; Monocytes # (A) 0.5 k/uL (0-1.0); Monocytes % (A) 7 %; Neutrophils # (A) 5.3 k/uL (1.3-7.7); Neutrophils % (A) 73 %; RBC 3.29 m/uL (4.30-5.90); RDW 19.4 % (11.5-15.5); WBC 7.3 k/uL (3.8-10.6); WBC (Perox) 7.79
--- NOTE | 2016-10-01 10:43 | P.PN ---
Subjective patient is seen in follow-up for end-stage renal disease. He is maintained on hemodialysis on a Saturday schedule. Patient has long-standing history of insulin-dependent diabetes mellitus and has had recurrent admissions forgastroparesis flare. Patient presented with nausea vomiting and abdominal pain which is improved today. He started to tolerate oral intake. No other complaints at this time. Hemodynamically stable. Vital signs are stable. General: The patient appeared well nourished and normally developed. HEENT: Head exam is unremarkable. Neck is without jugular venous distension. LUNGS: Lungs are clear to auscultation and percussion. Breath sounds decreased. HEART: Rate and Rhythm are regular. First and second heart sounds normal. No murmurs, rubs or gallops. ABDOMEN: Abdominal exam reveals normal bowel sounds. Tender to palpation. EXTREMITITES: No clubbing, cyanosis, or edema. Objective - Vital Signs Vital signs: Vital Signs Temp 97.8 F 10/01/16 07:00 Pulse 70 10/01/16 07:00 Resp 16 10/01/16 07:00 BP 163/77 10/01/16 07:00 Pulse Ox 92 L 10/01/16 07:00 Intake & Output 09/30/16 10/01/16 10/01/16 18:59 06:59 18:59 Intake Total 1000 2250 Balance 1000 2250 Weight 63.503 kg 54 kg Intake: Amount of Fluid Infused ( 1000 ml) Intake, IV Titration 2000 Amount Sodium Chloride 0.9% 1, 1000 000 ml @ 50 mls/hr IV . Q20H STA Rx#:[id number] Sodium Chloride 0.9% 1, 1000 000 ml @ 999 mls/hr IV . Q1H1M STA Rx#:[id number] Oral 250 Other: # Voids 0 0 # Bowel Movements 0 2 - Labs CBC & Chem 7: 10/01/16 08:53 10/01/16 08:53 Labs: Abnormal Lab Results - Last 24 Hours (Table) 09/30/16 09/30/16 09/30/16 Range/Units 08:30 12:32 17:12 RBC (4.30-5.90) m/uL Hgb (13.0-17.5) gm/dL Hct (39.0-53.0) % MCV (80.0-100.0) fL MCHC (31.0-37.0) g/dL RDW (11.5-15.5) % Lymphocytes # (1.0-4.8) k/uL Carbon Dioxide (22-30) mmol/L BUN (9-20) mg/dL Creatinine (0.66-1.25) mg/dL POC Glucose (mg/dL) 114 H 153 H (75-99) mg/dL Hemoglobin A1c 7.6 H (4.2-6.1) % Alkaline Phosphatase (38-126) U/L 09/30/16 10/01/16 10/01/16 Range/Units 21:19 08:53 08:53 RBC 3.29 L (4.30-5.90) m/uL Hgb 9.9 L (13.0-17.5) gm/dL Hct 33.0 L (39.0-53.0) % MCV 100.2 H (80.0-100.0) fL MCHC 30.2 L (31.0-37.0) g/dL RDW 19.4 H (11.5-15.5) % Lymphocytes # 0.9 L (1.0-4.8) k/uL Carbon Dioxide 21 L (22-30) mmol/L BUN 89 H* (9-20) mg/dL Creatinine 10.85 H* (0.66-1.25) mg/dL POC Glucose (mg/dL) 154 H (75-99) mg/dL Hemoglobin A1c (4.2-6.1) % Alkaline Phosphatase 159 H (38-126) U/L Assessment and Plan Plan: Assessment: #1. End-stage renal disease maintained on hemodialysis on a Saturday schedule. #2. Nausea vomiting with abdominal pain likely secondary to diabetic gastroparesis flare. #3. Hypertension with chronic kidney disease. Labile. Partially related to gastroparesis flare. #4. Chronic kidney disease mineral bone disease. #5. Insulin-dependent diabetes mellitus. Plan: Hemodialysis today. Heplock IVFs as PO intake improves. Continue with pain control and antiemetics. Maintain PhosLo with meals. Potential discharge after dialysis today.
[2016-10-01 11:36] VITALS: BMI 18.6
[2016-10-01 12:44] LABS: Glucose,Whole Blood 98 mg/dL (75-99)
--- NOTE | 2016-10-01 12:59 | HP ---
DATE OF SERVICE: 09/30/2016 CHIEF COMPLAINT: Abdominal pain and vomiting. HISTORY OF PRESENT ILLNESS: This 41-year-old gentleman with the past medical history of chronic kidney disease, history of hemodialysis, history of gastroparesis, recurrent vomiting and abdominal pain, being followed by Dr. Onofre in the outpatient setting. He is complaining of significant abdominal pain. The patient presented to the ER yesterday but today because of recurrent of the pain again, the patient came to the ER and was admitted for further evaluation and treatment. The pain is located in the epigastric area and patient unable to keep anything down. There is no history of any fevers or rigors. No history of headache, loss of consciousness or seizures. Creatinine was 9.1. Blood sugar was 114. Acetone was negative. PAST MEDICAL HISTORY: History of hypertension, hyperlipidemia, history of diabetes, CVA, TIA, CHF. MEDICATIONS PRIOR TO ADMISSION: Home medications are: 1. Apresoline 100 mg p.o. t.i.d. 2. Benadryl 25 mg t.i.d. p.r.n. 3. Catapres 0.3 t.i.d. 4. Amlodipine 10 mg. 5. Zofran 4 mg p.o. q8 p.r.n. 6. Prilosec 20 mg p.o. daily. 7. Lisinopril 5 mg p.o. daily. 8. Ativan 1 mg t.i.d. p.r.n. 9. Lantus 20 units subcu q.h.s. 10. Humalog to scale. 11. Dilaudid 2 mg daily p.r.n. 12. Nephrocaps one p.o. daily. 13. Pepcid 20 mg daily p.r.n. 14. Lomotil one tablet p.o. q8 p.r.n. 15. Flexeril 10 mg q.h.s. p.r.n. 16. Sensipar 60 mg q.h.s. 17. Coreg 25 mg p.o. b.i.d. 18. PhosLo 667 p.o. daily. ALLERGIES: CODEINE, METOCLOPRAMIDE, MORPHINE. FAMILY HISTORY: History of diabetes mellitus which runs in the family. SOCIAL HISTORY: No history of smoking, no history of alcohol intake. REVIEW OF SYSTEMS: ENT: No diminished hearing or vision. CARDIOVASCULAR: No angina or palpitation. RESPIRATORY: As mentioned earlier. GI: As mentioned earlier. : No dysuria. NERVOUS SYSTEM: No numbness or weakness. IMMUNOLOGY/ALLERGY: No asthma, hayfever. MUSCULOSKELETAL: As mentioned earlier. HEMATOLOGY: No history of anemia. ENDOCRINE: History of diabetes. CONSTITUTIONAL: As mentioned above. PSYCHIATRIC: As mentioned earlier. PHYSICAL EXAMINATION: Alert and oriented x3. Pulse is 80, blood pressure 131/ 70, respirations 14, temperature 97 degrees, pulse ox 94% on 2 liters. HEENT: Conjunctivae normal. Oral mucosa dry. NECK: No jugular venous distention. No thyroid enlargement, no lymph node enlargement. CARDIOVASCULAR: S1/.S2. RESPIRATIONS: Diminished breath sounds, especially at the bases. A few rhonchi , no crackles. ABDOMEN: Soft. Mild diffuse discomfort. No guarding, no rebound. No mass palpable. No ascites. LEGS: No edema, no swelling. NERVOUS SYSTEM: Higher function as mentioned. Moves all four limbs. No focal weakness. LYMPHATICS. No lymph node palpable in neck or axillae. SKIN: No rash. LABS: WBC 9.3, hemoglobin 10.9. Creatinine 9.16. ASSESSMENT: 1. Intractable abdominal pain and also hematochezia, unable to keep anything down. 2. Possible acute gastroparesis acute exacerbation. 3. Chronic renal failure. 4. Hemodialysis. 5. Chronic kidney disease stage 5. 6. Diabetes mellitus type 1. 7. History of noncompliance. 8. History of accelerated hypertension. 9. Hyperlipidemia. 11. History of hypothyroidism. RECOMMENDATIONS AND DISCUSSION: In this 41-year-old gentleman who presented with multiple complex medical issues, will continue current medication, will monitor the patient closely, continue symptomatic treatment. Otherwise, at this time I would recommend IV proton pump inhibitors, hemodialysis secondary to medications. Guarded prognosis. Nephrology will be consulted. Symptomatic treatment is offered. DVT prophylaxis. Further recommendations to follow. MTDD
[2016-10-01] MEDS: hydrALAZINE HCL 50 MG TAB PO SCH ×2 (14:49→14:50)
[2016-10-01] MEDS: amLODIPine 10 MG TAB PO SCH (14:49)
[2016-10-01] MEDS: LISINOPRIL 5 MG TAB PO SCH (14:49)
[2016-10-01 15:34] VITALS: BP 179/80; PULSE 90; RESP 20
--- NOTE | 2016-10-01 19:17 | P.DS ---
Providers Date of admission: 09/30/16 10:01 Attending physician: Cristóbal Juan Consults: 09/30/16 11:35 Consult Physician Stat Consulting Provider: Damien Allred Consult Reason/Comments: CRF, hemodialysis Do you want consulting provider notified?: Yes Primary care physician[facility] Hospital Course: This 41-year-old gentleman who was admitted with abdominal pain vomiting and gastroparesis acute exacerbation was being monitored closely. However the patient left the hospital against medical advice. Prognosis remains guarded throughout the hospitalization. Please suffer to staff notes and other records for further information. Final diagnosis 1. Intractable abdominal pain as well as vomiting possibly acute gastroparesis acute exacerbation. 2. Chronic kidney disease and chronic renal for hemodialysis 3. Multiple Compass medical issues. Patient Condition at Discharge: Stable Plan - Discharge Summary New Discharge Prescriptions: No Action LORazepam [Ativan] 1 mg PO DAILY PRN PRN Reason: Anxiety Carvedilol [Coreg] 25 mg PO BID amLODIPine BESYLATE [Amlodipine Besylate] 10 mg PO DAILY Cinacalcet HCl [Sensipar] 60 mg PO HS Insulin Glargine [Lantus] 12 unit SQ HS Folic Acid-Vit B Complex-Vit C [Nephrocaps] 1 cap PO DAILY Omeprazole [PriLOSEC] 20 mg PO DAILY INSULIN LISPRO (humaLOG) [humaLOG (formulary)] See Protocol SQ AC-TID Cyclobenzaprine [Flexeril] 10 mg PO HS PRN PRN Reason: Muscle Spasm cloNIDine HCL [Catapres] 0.2 mg PO TID tab hydrALAZINE HCL [Apresoline] 100 mg PO TID HYDROmorphone [Dilaudid] 2 mg PO DAILY PRN PRN Reason: Pain Lisinopril 5 mg PO DAILY Famotidine [Pepcid] 20 mg PO DAILY PRN PRN Reason: gerd Diphenoxylate HCl/Atropine [Lomotil 2.5-0.025 mg Tablet] 1 tab PO Q8H PRN PRN Reason: Diarrhea Calcium Acetate [PhosLo] 667 mg PO DAILY diphenhydrAMINE HCL [Benadryl] 25 mg PO TID PRN PRN Reason: Itching Ondansetron Odt [Zofran Odt] 4 mg PO Q8HR PRN #12 tab PRN Reason: Nausea Discharge Medication List LORazepam [Ativan] 1 mg PO DAILY PRN 06/06/14 [History] Carvedilol [Coreg] 25 mg PO BID 07/10/14 [History] amLODIPine BESYLATE [Amlodipine Besylate] 10 mg PO DAILY 06/24/15 [History] Cinacalcet HCl [Sensipar] 60 mg PO HS 10/31/15 [History] Insulin Glargine [Lantus] 12 unit SQ HS 01/12/16 [History] Folic Acid-Vit B Complex-Vit C [Nephrocaps] 1 cap PO DAILY 01/25/16 [History] Cyclobenzaprine [Flexeril] 10 mg PO HS PRN 02/20/16 [History] INSULIN LISPRO (humaLOG) [humaLOG (formulary)] See Protocol SQ AC-TID 02/20/16 [ History] Omeprazole [PriLOSEC] 20 mg PO DAILY 02/20/16 [History] cloNIDine HCL [Catapres] 0.2 mg PO TID tab 02/20/16 [Rx] HYDROmorphone [Dilaudid] 2 mg PO DAILY PRN 03/28/16 [History] hydrALAZINE HCL [Apresoline] 100 mg PO TID 03/28/16 [History] Lisinopril 5 mg PO DAILY 06/13/16 [History] Calcium Acetate [PhosLo] 667 mg PO DAILY 07/13/16 [History] Diphenoxylate HCl/Atropine [Lomotil 2.5-0.025 mg Tablet] 1 tab PO Q8H PRN [History] Famotidine [Pepcid] 20 mg PO DAILY PRN 07/13/16 [History] diphenhydrAMINE HCL [Benadryl] 25 mg PO TID PRN 07/14/16 [History] Ondansetron Odt [Zofran Odt] 4 mg PO Q8HR PRN #12 tab 08/27/16 [Rx] Follow up Appointment(s)/Referral(s): Kala Onofre MD [Primary Care Provider] - 1-2 days Patient Instructions/Handouts: Heart Failure (DC), Type 1 Diabetes in Adults ( DC) Discharge Disposition: Left Against Medical Advice
--- NOTE | 2016-10-02 09:21 | PN ---
DATE OF SERVICE: 10/01/2016 This 41-year-old gentleman who was admitted with abdominal pain and as well as acute gastroparesis, acute exacerbation being closely monitored. The patient is also receiving hemodialysis today. No chest pain or palpitation. No fever. PAST MEDICAL HISTORY: Reviewed. REVIEW OF SYSTEMS: CARDIOVASCULAR SYSTEM: No angina. RESPIRATORY SYSTEM: As mentioned earlier. GI: As mentioned earlier. : No dysuria. NERVOUS SYSTEM: No numbness or weakness. Current medications are Tylenol, Norvasc, PhosLo, Coreg, Thorazine, Catapres, Benadryl, Lomotil, Apresoline, Dilaudid, Lantus, Humalog, Zestril, Ativan, doses are reviewed. On exam, alert and oriented x3. Pulse 90. Blood pressure 179/80, respirations 20, temperature 97.8, pulse ox 98% on room air. HEENT: Oral mucosa dry. NECK: No jugular venous distention. No carotid bruit. No lymph node enlargement. CARDIOVASCULAR: S1 and S2, muffled. RESPIRATORY: Breath sounds diminished at the bases. A few scattered rhonchi, no crackles. ABDOMEN: Soft, mild diffuse tenderness. LEGS: No edema, no swelling. NERVOUS SYSTEM: No focal deficits. LABS: WBC 7.3, hemoglobin 9.9. Creatinine 10.85. ASSESSMENT: 1. Intractable abdominal pain secondary to acute gastroparesis, acute exacerbation and inability to keep anything down. 2. Chronic renal failure. 3. Hemodialysis. 4. Chronic kidney disease, stage V. 5. Diabetes mellitus type 1. 6. History of noncompliance. 7. History of accelerated hypertension. 8. Hyperlipidemia. 9. History of hypothyroidism. RECOMMENDATIONS AND DISCUSSION: Recommend to continue current medications. Continue symptomatic treatment. Monitor blood pressure closely. otherwise continue the hemodialysis. Prognosis guarded. Further recommendations to follow. MTDD
== END 2016-10-01 16:16 | disposition left against medical advice (07) | DRG 73 ==
LOC: EC 08:22 → 4MS4W 10:01
PROVIDERS: ADMIT Hospitalist; ATTEND Hospitalist
PROC: 5A1D00Z (ICD-10-PCS; principal; 2016-09-30)
DX: E10.43 Type 1 diabetes mellitus with diabetic autonomic (poly)neuropathy (principal); N18.6 End stage renal disease; E10.22 Type 1 diabetes mellitus with diabetic chronic kidney disease; I12.0 Hypertensive chronic kidney disease with stage 5 chronic kidney disease or end stage renal disease; K31.84 Gastroparesis; E03.9 Hypothyroidism, unspecified; E78.5 Hyperlipidemia, unspecified; G40.909 Epilepsy, unspecified, not intractable, without status epilepticus; G89.29 Other chronic pain; Z99.2 Dependence on renal dialysis; Z79.4 Long term (current) use of insulin; I50.9 Heart failure, unspecified; K21.9 Gastro-esophageal reflux disease without esophagitis; Z79.899 Other long term (current) drug therapy; Z82.0 Family history of epilepsy and other diseases of the nervous system; Z82.5 Family history of asthma and other chronic lower respiratory diseases; Z83.3 Family history of diabetes mellitus; Z86.73 Personal history of transient ischemic attack (TIA), and cerebral infarction without residual deficits; Z91.19 Patient's noncompliance with other medical treatment and regimen; Z88.5 Allergy status to narcotic agent
CPT/HCPCS: 36415; 71010; 80053; 82009; 82150; 83036; 83605; 83690; 85025; 90935

== ENCOUNTER 2016-10-13 15:10 | Inpatient (IN) | payer MEDICARE, OTHER ==
--- NOTE | 2016-10-13 15:49 | ED ---
Abdominal Pain HPI - General Chief Complaint: Abdominal Pain Stated Complaint: abdominal pain/vomiting Time Seen by Provider: 10/13/16 15:46 Source: patient, family, RN notes reviewed, old records reviewed Mode of arrival: wheelchair Limitations: no limitations - History of Present Illness Initial Comments: This is a 41-year-old male presenting to emergency Department chief complaint of increased abdominal pain nausea vomiting. Patient has a history of renal failure, and is currently on dialysis. Patient also has history of diabetes, CVAs, seizure disorder and thyroid disorder. Patient arrives to emergency department with a blood pressure 230/128. Patient reports the pain is mainly over the right upper quadrant epigastric region. Denies any blood in his vomit. Patient states that he also has not urinated any time recently. Denies any specific fever or chills. Patient's mother is concerned he has a gastric cancer because this keeps recurring. Patient reports his GI specialist is Dr. Khan. He did go to dialysis on Saturday. - Related Data Home Medications Medication Instructions Recorded Confirmed LORazepam [Ativan] 1 mg PO DAILY PRN 06/06/14 10/13/16 Carvedilol [Coreg] 25 mg PO BID 07/10/14 10/13/16 amLODIPine BESYLATE [Amlodipine 10 mg PO DAILY 06/24/15 10/13/16 Besylate] Cinacalcet HCl [Sensipar] 60 mg PO HS 10/31/15 10/13/16 Insulin Glargine [Lantus] 12 unit SQ HS 01/12/16 10/13/16 Folic Acid-Vit B Complex-Vit C 1 cap PO DAILY 01/25/16 10/13/16 [Nephrocaps] Cyclobenzaprine [Flexeril] 10 mg PO HS PRN 02/20/16 10/13/16 INSULIN LISPRO (humaLOG) [humaLOG See Protocol SQ AC-TID 02/20/16 10/13/16 (formulary)] Omeprazole [PriLOSEC] 20 mg PO DAILY 02/20/16 10/13/16 HYDROmorphone [Dilaudid] 2 mg PO DAILY PRN 03/28/16 10/13/16 hydrALAZINE HCL [Apresoline] 100 mg PO TID 03/28/16 10/13/16 Lisinopril 5 mg PO DAILY 06/13/16 10/13/16 Calcium Acetate [PhosLo] 667 mg PO DAILY 07/13/16 10/13/16 Diphenoxylate HCl/Atropine 1 tab PO Q8H PRN 07/13/16 10/13/16 [Lomotil 2.5-0.025 mg Tablet] Famotidine [Pepcid] 20 mg PO DAILY PRN 07/13/16 10/13/16 diphenhydrAMINE HCL [Benadryl] 25 mg PO TID PRN 07/14/16 10/13/16 Previous Rx's Medication Instructions Recorded cloNIDine HCL [Catapres] 0.2 mg PO TID tab 02/20/16 Ondansetron Odt [Zofran Odt] 4 mg PO Q8HR PRN #12 tab 08/27/16 Allergies Allergy/AdvReac Type Severity Reaction Status Date / Time codeine Allergy Rash/Hives Verified 10/13/16 15:31 metoclopramide HCl AdvReac Muscle Verified 10/13/16 15:31 [From Reglan] Spasms morphine AdvReac Increases Verified 10/13/16 15:31 Pain Review of Systems ROS Statement: Those systems with pertinent positive or pertinent negative responses have been documented in the HPI. ROS Other: All systems not noted in ROS Statement are negative. Past Medical History Past Medical History: Chest Pain / Angina, Heart Failure, CVA/TIA, Diabetes Mellitus, Dialysis, Eye Disorder, GERD/Reflux, Hypertension, Renal Disease, Seizure Disorder, Thyroid Disorder Additional Past Medical History / Comment(s): Chronic renal failure stage IV, hemodialysis M/W/FR, past peritoneal dialysis with peritonitis, gastroparesis, cyclic vomiting, chronic abdominal pain, pancreatitis, IDDM type I brittle, heart murmur, heat stroke-no residual, diabetic retinopathy bilaterally, retinal detachment with surgery, hypothyroid, hiatal hernia, sinusitis, bronchitis, chronic back pain, anemia, last seizure in 2015. History of Any Multi-Drug Resistant Organisms: None Reported Past Surgical History: Cholecystectomy, Heart Catheterization, Hernia Repair Additional Past Surgical History / Comment(s): bilateral retinal reattachment sx , hemodialysis catheter in Feb 2013, lt arm fistual, L inguinal hernia, 2009 cardiac cath. Past Anesthesia/Blood Transfusion Reactions: No Reported Reaction Past Psychological History: Anxiety, Depression Smoking Status: Never smoker Past Alcohol Use History: None Reported Past Drug Use History: None Reported - Past Family History Father History Unknown: Yes Mother History Unknown: Yes Family Medical History: COPD Additional Family Medical History / Comment(s): Mother has never smoked. Mother' s brother had diabetes and multiple sclerosis. Brother(s) Family Medical History: Diabetes Mellitus Additional Family Medical History / Comment(s): multiple sclerosis General Exam - General Exam Comments Initial Comments: 41-year-old male. No acute distress. Limitations: no limitations General appearance: alert, in no apparent distress Head exam: Present: atraumatic, normocephalic, normal inspection Eye exam: Present: normal appearance, PERRL, EOMI. Absent: scleral icterus, conjunctival injection, periorbital swelling ENT exam: Present: normal exam, mucous membranes moist Neck exam: Present: normal inspection. Absent: tenderness, meningismus, lymphadenopathy Respiratory exam: Present: normal lung sounds bilaterally. Absent: respiratory distress, wheezes, rales, rhonchi, stridor Cardiovascular Exam: Present: regular rate, normal rhythm, normal heart sounds. Absent: systolic murmur, diastolic murmur, rubs, gallop, clicks GI/Abdominal exam: Present: soft, tenderness (epigastric RUQ tenderness), normal bowel sounds. Absent: distended, guarding, rebound, rigid Extremities exam: Present: normal inspection, full ROM, normal capillary refill. Absent: tenderness, pedal edema, joint swelling, calf tenderness Back exam: Present: normal inspection Neurological exam: Present: alert, oriented X3, CN II-XII intact Psychiatric exam: Present: normal affect, normal mood Skin exam: Present: warm, dry, intact, normal color. Absent: rash Course Vital Signs 10/13/16 10/13/16 10/13/16 15:26 17:43 18:19 Temperature 98.2 F 98.0 F Pulse Rate 100 80 82 Respiratory 20 18 20 Rate Blood Pressure 230/128 200/90 204/99 O2 Sat by Pulse 98 96 97 Oximetry 10/13/16 19:06 Temperature Pulse Rate 77 Respiratory 22 Rate Blood Pressure 164/89 O2 Sat by Pulse 92 L Oximetry - Reevaluation(s) Reevaluation #1: 10/13/16 17:49 Patient is reevaluated, after pain medication clonidine. Patient's blood pressure is 200/105. Medical Decision Making - Medical Decision Making 41-year-old male wanted to the emergency Department chief complaint of increased abdominal pain for one day. Patient's eye multiple episodes of vomiting emergency department. No blood noted at this time. Patient refused KUB x-ray. Patient's lab work was reviewed. Elevated creatinine 8.52. Patient 's level has been around this level in the past. Patient's blood pressure continues to be elevated 200/105. Patient was given clonidine, hydralazine and labetalol. Blood pressure did go down to acceptable level. Patient case discussed with Dr. Erwin, discussed that he would like Like to admit the patient for elevated blood pressure is common elevated creatinine. Patient was informed of this. He agrees to admission. Patient will be given IV hydration. Consult to nephrology.. - Lab Data Result diagrams: 10/13/16 16:25 10/13/16 16:25 Lab Results 10/13/16 10/13/16 10/13/16 Range/Units 16:25 16:25 16:25 WBC 7.6 (3.8-10.6) k/uL RBC 3.81 L (4.30-5.90) m/uL Hgb 11.5 L (13.0-17.5) gm/dL Hct 36.5 L (39.0-53.0) % MCV 95.7 (80.0-100.0) fL MCH 30.2 (25.0-35.0) pg MCHC 31.6 (31.0-37.0) g/dL RDW 17.8 H (11.5-15.5) % Plt Count 265 (150-450) k/uL Neutrophils % 75 % Lymphocytes % 11 % Monocytes % 7 % Eosinophils % 3 % Basophils % 1 % Neutrophils # 5.7 (1.3-7.7) k/uL Lymphocytes # 0.8 L (1.0-4.8) k/uL Monocytes # 0.6 (0-1.0) k/uL Eosinophils # 0.2 (0-0.7) k/uL Basophils # 0.1 (0-0.2) k/uL Anisocytosis Slight Macrocytosis Slight Sodium 137 (137-145) mmol/L Potassium 4.7 (3.5-5.1) mmol/L Chloride 94 L (98-107) mmol/L Carbon Dioxide 25 (22-30) mmol/L Anion Gap 18 mmol/L BUN 39 H (9-20) mg/dL Creatinine 8.40 H* (0.66-1.25) mg/dL Est GFR (MDRD) Af Amer 9 (>60 ml/min/1.73 sqM) Est GFR (MDRD) Non-Af 7 (>60 ml/min/1.73 sqM) Glucose 292 H (74-99) mg/dL Calcium 9.5 (8.4-10.2) mg/dL Total Bilirubin 0.9 (0.2-1.3) mg/dL AST 32 (17-59) U/L ALT 35 (21-72) U/L Alkaline Phosphatase 168 H (38-126) U/L Total Protein 8.2 (6.3-8.2) g/dL Albumin 4.7 (3.5-5.0) g/dL Amylase 59 (30-110) U/L Lipase 245 (23-300) U/L Acetone, Qual Negative (Negative) Disposition Clinical Impression: Intractable vomiting, Chronic abdominal pain, Acute renal failure, Kidney failure Disposition: ADMITTED IP TO THIS HOSP Condition: Stable Referrals: Kala Onofre MD [Primary Care Provider] - 1-2 days Time of Disposition: 18:39
[2016-10-13] MEDS ORDERED: ONDANSETRON 4 MG/2 ML VIAL IVP STA (15:56)
[2016-10-13] MEDS ORDERED: HYDROmorphone 1 MG/ML 1 ML SYRINGE IVP STA (15:56)
[2016-10-13] MEDS ORDERED: SODIUM CHLORIDE 0.9% 2,000 ML IV STA (15:56)
[2016-10-13] MEDS ORDERED: diphenhydrAMINE 50 MG/ML 1 ML VIAL IVP STA (16:06)
[2016-10-13] MEDS ORDERED: cloNIDine HCL 0.2 MG TAB PO STA (16:06)
[2016-10-13 16:46] LABS: Calcium 9.5 mg/dL (8.4-10.2); Potassium 4.7 mmol/L (3.5-5.1); Total Bilirubin 0.9 mg/dL (0.2-1.3); Total Protein 8.2 g/dL (6.3-8.2)
[2016-10-13 17:01] LABS: Anisocytosis Slight; Basophils # (A) 0.1 k/uL (0-0.2); Basophils % (A) 1 %; CH 31.4; Eosinophils # (A) 0.2 k/uL (0-0.7); Eosinophils % (A) 3 %; HCT 36.5 % (39.0-53.0); HDW 2.64; HGB 11.5 gm/dL (13.0-17.5); Luc # (Auto) 0.25; Luc % (Auto) 3; Lymphocytes # (A) 0.8 k/uL (1.0-4.8); Lymphocytes % (A) 11 %; MCH 30.2 pg (25.0-35.0); MCHC 31.6 g/dL (31.0-37.0); MCV 95.7 fL (80.0-100.0); Macrocytosis Slight; Monocytes # (A) 0.6 k/uL (0-1.0); Monocytes % (A) 7 %; Neutrophils # (A) 5.7 k/uL (1.3-7.7); Neutrophils % (A) 75 %; RBC 3.81 m/uL (4.30-5.90); RDW 17.8 % (11.5-15.5); WBC 7.6 k/uL (3.8-10.6); WBC (Perox) 7.49
[2016-10-13] MEDS ORDERED: hydrALAZINE HCL 20 MG/ML 1 ML VIAL IVP STA (18:16)
[2016-10-13] MEDS ORDERED: LABETALOL 5 MG/ML VIAL MDV IVP STA (18:17)
[2016-10-13] MEDS: SODIUM CHLORIDE 0.9% 1,000 ML IV SCH (18:25)
[2016-10-13] MEDS ORDERED: NALOXONE 0.4 MG/ML 1 ML VIAL IV PRN (19:43)
[2016-10-13] MEDS ORDERED: traMADol 50 MG TAB PO PRN (19:43)
[2016-10-13] MEDS: ONDANSETRON 4 MG/2 ML VIAL IVP PRN (20:20)
[2016-10-13] MEDS: HYDROmorphone 1 MG/ML 1 ML SYRINGE IV PRN ×2 (20:22→23:35)
--- NOTE | 2016-10-13 20:45 | XR ---
EXAMINATION TYPE: XR KUB DATE OF EXAM: 10/13/2016 COMPARISON: 07/14/2016 INDICATION: Abdominal pain nausea vomiting TECHNIQUE: Single view abdomen upright FINDINGS: There is a normal bowel gas pattern. Psoas margins are normal. No organomegaly is present. There is extensive abdominal calcification present within the arterial system. IMPRESSION: 1. No acute process
[2016-10-13] MEDS ORDERED: hydrALAZINE HCL 20 MG/ML 1 ML VIAL IVP PRN (21:42)
[2016-10-13] MEDS: ENALAPRILAT 1.25 MG/ML 1 ML VIAL IVP PRN (23:06)
[2016-10-14] MEDS: HYDROmorphone 1 MG/ML 1 ML SYRINGE IV PRN ×7 (02:34→21:26)
[2016-10-14] MEDS: ENALAPRILAT 1.25 MG/ML 1 ML VIAL IVP PRN (05:37)
[2016-10-14] MEDS: ONDANSETRON 4 MG/2 ML VIAL IVP PRN ×3 (05:37→21:24)
[2016-10-14] MEDS: SODIUM CHLORIDE 0.9% 1,000 ML IV SCH (05:46)
[2016-10-14 07:21] LABS: Glucose,Whole Blood 180 mg/dL (75-99)
[2016-10-14] MEDS: INSULIN LISPRO (humaLOG) 300 UNIT/3 ML VIAL SQ SCH ×4 (08:19→21:04)
[2016-10-14] MEDS: PANTOPRAZOLE 40 MG/10 ML VIAL IV SCH (08:19)
[2016-10-14] MEDS ORDERED: diphenhydrAMINE 25 MG CAP PO PRN (08:45)
[2016-10-14] MEDS: LISINOPRIL 5 MG TAB PO SCH (09:38)
[2016-10-14] MEDS: CARVEDILOL 12.5 MG TAB PO SCH ×2 (09:38→17:37)
[2016-10-14] MEDS: amLODIPine 10 MG TAB PO SCH (09:38)
[2016-10-14] MEDS: hydrALAZINE HCL 50 MG TAB PO SCH ×3 (09:39→21:01)
[2016-10-14] MEDS: cloNIDine HCL 0.2 MG TAB PO SCH ×3 (09:39→21:01)
[2016-10-14 10:01] LABS: Calcium 9.2 mg/dL (8.4-10.2); Potassium 4.7 mmol/L (3.5-5.1)
--- NOTE | 2016-10-14 10:10 | CONS ---
DATE OF CONSULTATION: 10/14/2016 REASON FOR CONSULTATION: Endstage renal disease. HISTORY OF PRESENT ILLNESS: Patient is a 41-year-old male with history of endstage renal disease on hemodialysis on Saturday, Saturday and Saturday schedule. He was admitted to the hospital with nausea, vomiting from his gastroparesis. He has had no fever. Blood pressure was elevated at 230/128, currently improved but still staying on the higher side. Patient has been compliant with his outpatient hemodialysis treatments. No diarrhea. No cough. No chest pains prior to admission. PAST MEDICAL HISTORY: Significant for diabetic gastroparesis, type 1 diabetes, endstage renal disease, anemia of chronic disease, CKD bone mineral disorder, history of CVA/TIA, retinopathy, seizure disorder, hypothyroidism. PAST SURGICAL HISTORY: PD catheter insertion and removal, retinal surgery, hemodialysis catheterization placement, left arm AV fistula, inguinal hernia repair, cardiac catheterization. SOCIAL HISTORY: Patient is negative for smoking, drug abuse or alcohol abuse. Medications at home include: Coreg, amlodipine, Sensipar, insulin, Prilosec, PhosLo, Benadryl, Clonidine, Zofran. ALLERGIES: CODEINE, MORPHINE, REGLAN. REVIEW OF SYSTEMS: As per HPI. On examination, patient is comfortable, awake, alert, oriented x3, not in any acute distress. Blood pressure was elevated 193/97, heart rate 78 per minute. He is afebrile. Examination of the heart: S1, S2. Examination of lungs: Bilateral breath sounds are heard. Abdomen is soft, nontender. Examination of lower extremities shows no significant edema. Chronic skin changes are noted. [employer] exam is grossly intact. Patient is moving all four extremities. Labs show sodium 137, potassium 4.7, BUN 39, serum creatinine 8.4, hemoglobin 11.5 g/dL. ASSESSMENT: 1. Endstage renal disease on hemodialysis on a Saturday, Saturday and Saturday schedule via left arm AV fistula. Will arrange for hemodialysis in the a.m. 2. Diabetic gastroparesis, currently maintained on symptomatic treatment. The patient will be going to see Dr. Bee for Botox injections. 3. Hypertension currently uncontrolled. Will continue the IV p.r.n. medications and maintain patient on all his oral antihypertensive meds. I will hep-lock the IV as well. We will arrange for hemodialysis tomorrow. Thank you for this consultation. Will continue to follow the patient with you during his hospitalization. VANDANA
[2016-10-14] MEDS ORDERED: ONDANSETRON 4 MG/2 ML VIAL IVP PRN (11:33)
[2016-10-14] MEDS ORDERED: ONDANSETRON 4 MG/2 ML VIAL ONE (11:41)
[2016-10-14 12:15] LABS: Glucose,Whole Blood 131 mg/dL (75-99)
[2016-10-14] MEDS ORDERED: LORazepam 1 MG TAB PO PRN (12:24)
[2016-10-14] MEDS ORDERED: CYCLOBENZAPRINE 10 MG TAB PO PRN (12:24)
[2016-10-14] MEDS ORDERED: DIPHENOX-ATROP 2.5-0.025 MG 1 EACH TAB PO PRN (12:24)
--- NOTE | 2016-10-14 13:35 | HP ---
DATE OF ADMISSION: 10/13/16 CHIEF COMPLAINT: Abdominal pain, vomiting. HISTORY OF PRESENT ILLNESS: This 41-year-old gentleman with past medical history of multiple medical problems including gastroparesis, history of chronic kidney disease, history of hypertension, being followed by Dr. Onofre in the outpatient setting was complaining of abdominal pain, significant nausea, the patient unable to keep anything down. Blood pressure elevated 230/128. The patient came to [facility] and was admitted to the hospital with for further evaluation and treatment. There is no history of any fevers, rigors , or chills. No history of headache, loss of consciousness or seizures. Past medical history of chronic renal failure, history of CVA, TIA, history of hemodialysis. History of chest pain. History of cardiac catheterization, anxiety. Mediations prior to admission include: Home medications are: 1. Apresoline 100 mg po t.i.d. 2. Benadryl 25 mg t.i.d. prn 3. Catapres 0.2 t.i.d. 4. Amlodipine 10 mg daily. 5. Zofran 4 mg q8h prn. 6. Prilosec 20 mg po daily. 7. Lisinopril 5 mg po daily. 8. Ativan 1 mg daily prn. 9. Lantus 12 units subcu q.h.s. 10. Humalog scale. 11. Dilaudid 2 mg t.i.d. prn. 12. Nephrocaps one po daily. 13. Pepcid 20 mg daily prn. 15. Flexeril 10 mg q.h.s. 16. Sensipar 60 mg q.h.s. 17. Coreg 25 mg po b.i.d. 18. PhosLo 667 po daily. ALLERGIES: CODEINE, REGLAN, MORPHINE. FAMILY HISTORY: History of diabetes mellitus and multiple sclerosis in the family. SOCIAL HISTORY: No history of smoking. No history of alcohol intake. REVIEW OF SYSTEMS: HEENT: No diminished vision and no diminished hearing. Cardiovascular system: no angina or palpitations. Respiratory: No cough. GI : As mentioned earlier. : As mentioned earlier. Nervous system: No numbness, weakness. Allergy/Immunology: No asthma or hayfever. Musculoskeletal : As mentioned earlier. Hematology/oncology: No history of anemia. Endocrine: No history of diabetes mellitus or hypothyroidism. Constitutional: As mentioned earlier. Dermatology: Negative. Rheumatology: Negative. Psychiatry: As mentioned earlier. PHYSICAL EXAMINATION: The patient is alert, oriented times three. Pulse 82. Blood pressure 204/99. Respiratory rate 20, temperature 98. Pulse ox 97% on room air. HEENT: Conjunctivae normal. NECK: No JVD. Cardiovascular: S1, S2 muffled. Respiratory: Breath sounds diminished at the bases. A few scattered rhonchi and crackles. Abdomen is soft, mild diffuse discomfort on palpation. No mass palpable. Legs: No edema. No swelling. Nervous system: Higher functions as mentioned earlier. Moves all four limbs. No focal motor deficits. Lymphatics: No lymph nodes palpable in the neck, axilla or groin. Skin: No ulcer, rash or bleeding. LABS: WBC 7.7, hemoglobin 11.5. Creatinine 8.40. ASSESSMENT: 1. Severe abdominal pain with acute intractable vomiting, possible acute gastroparesis, acute exacerbation. 2. Hypertensive urgency. 3. Chronic renal failure, on hemodialysis. 4. Diabetes mellitus, type 2. 5. Anemia. RECOMMENDATIONS AND DISCUSSION: Continue the current medications. Continue symptomatic treatment. Monitor blood sugars closely. Otherwise, I would also recommend symptomatic treatment for the vomiting. Proton pump inhibitors. Otherwise, closely monitor. Nephrology consultation. Continue hemodialysis. Guarded prognosis because of multiple complex medical issues. Further recommendations to follow. See orders for further details. MTDD
[2016-10-14 17:19] LABS: Glucose,Whole Blood 157 mg/dL (75-99)
[2016-10-14 20:54] LABS: Glucose,Whole Blood 149 mg/dL (75-99)
[2016-10-14] MEDS ORDERED: INSULIN GLARGINE 100 UNIT/ML 10 ML VIAL SQ SCH (21:00)
[2016-10-14] MEDS ORDERED: CINACALCET 30 MG TAB PO SCH (21:00)
[2016-10-15] MEDS: HYDROmorphone 1 MG/ML 1 ML SYRINGE IV PRN ×4 (00:35→13:53)
[2016-10-15 01:26] VITALS: RESP 18
[2016-10-15] MEDS: ONDANSETRON 4 MG/2 ML VIAL IVP PRN ×3 (01:34→13:53)
--- NOTE | 2016-10-15 07:05 | PN ---
DATE OF SERVICE: 10/14/2016 This is a 41-year-old gentleman admitted with multiple medical problems admitted with nausea, abdominal pain, acute gastroparesis acute exacerbation. Patient has uncontrolled diabetes mellitus type 2, also. There is no evidence of ketoacidosis currently. Patient is currently still vomiting, unable to keep anything down. WBC is 7.6, acetone is negative as mentioned earlier. Blood sugars are being monitored closely. PAST MEDICAL HISTORY: Reviewed. REVIEW OF SYSTEMS: CARDIOVASCULAR SYSTEM: As mentioned earlier. RESPIRATORY: As mentioned earlier. GI: As mentioned earlier. NERVOUS SYSTEM: None. MUSCULOSKELETAL: As mentioned earlier. ENDOCRINE: As mentioned earlier. The current medications are reviewed and include Norvasc 10 mg daily, PhosLo 667 daily, Coreg 25 mg b.i.d., Sensipar 60 mg q.h.s., Catapres 0.2 t.i.d., Flexeril 10 mg q.h.s., Benadryl 25 mg t.i.d., Lomotil, Vasotec 1.25 q.6, omeprazole 100 mg t.i.d., Dilaudid, Lantus, Zestril, Ativan, Narcan, Protonix, Ultram. PHYSICAL EXAM: The patient is alert and oriented x3. Pulse 77, blood pressure 188/89, respirations 16, temperature is 97.1, pulse ox 94% on room air. HEENT: Conjunctivae are normal. NECK: No jugular venous distension. CARDIOVASCULAR SYSTEM: S1, S2, muffled. RESPIRATORY: Breath sounds diminished at the bases, a few scattered rhonchi, no crackles. ABDOMEN: Soft, mild diffuse tenderness. No guarding, no mass palpable. LEGS: No edema, no swelling. NERVOUS SYSTEM: No focal deficits. LABS: WBC is 7.6, hemoglobin is 11.5. ASSESSMENT: 1. Severe abdominal pain with acute intractable vomiting, possibly acute gastroparesis acute exacerbation. 2. Hypertensive urgency. 3. Chronic renal failure on hemodialysis, stage V. 4. Diabetes mellitus type 2. 5. Anemia. RECOMMENDATION: Recommend to continue with the current medication, continue with the monitoring and symptomatic treatment. Otherwise, at this time I would recommend continue with the proton inhibitors and dialysis. Guarded prognosis. Further recommendations to follow. See orders for further details. Repeat labs in the morning. MTDD
[2016-10-15 07:36] LABS: Glucose,Whole Blood 147 mg/dL (75-99)
[2016-10-15] MEDS: CARVEDILOL 12.5 MG TAB PO SCH ×2 (07:50→16:32)
[2016-10-15] MEDS: INSULIN LISPRO (humaLOG) 300 UNIT/3 ML VIAL SQ SCH ×2 (07:50→12:11)
[2016-10-15] MEDS: amLODIPine 10 MG TAB PO SCH (07:51)
[2016-10-15] MEDS: hydrALAZINE HCL 50 MG TAB PO SCH ×2 (07:51→16:32)
[2016-10-15] MEDS: cloNIDine HCL 0.2 MG TAB PO SCH ×2 (07:51→16:32)
[2016-10-15] MEDS: PANTOPRAZOLE 40 MG/10 ML VIAL IV SCH (07:52)
[2016-10-15] MEDS: LISINOPRIL 5 MG TAB PO SCH (07:52)
[2016-10-15] MEDS ORDERED: FOLIC ACID-VIT B COMPLEX-VIT C 1 CAP PO SCH (09:00)
[2016-10-15] MEDS ORDERED: CALCIUM ACETATE 667 MG CAP PO SCH (09:00)
--- NOTE | 2016-10-15 11:30 | PN ---
Patient is seen for followup for endstage renal disease. He is currently complaining of ( ) abdominal pain. Patient was lying in bed comfortably when I initially walked in. His mother is concerned about underlying malignancy and they are wondering if an endoscopy will be performed this admission. On examination, blood pressure is 117/62, heart rate is 60 per minute, he is afebrile. Examination of the heart, S1, S2. Examination of the lungs, bilateral breath sounds are heard. Abdomen is soft. There is tenderness in the upper abdomen. No hernia is noted at this time. [employer] exam is grossly intact. Patient is moving all 4 extremities. Labs show sodium of 142, potassium is 4.7, calcium 9.2. ASSESSMENT: 1. Endstage renal disease on hemodialysis on a Saturday, Saturday, Saturday Schedule. Will arrange for hemodialysis today. 2. Diabetic gastroparesis. Consider GI consult for possible endoscopy. 3. Hypertension, initially uncontrolled, now better controlled. 4. Chronic kidney disease ( ) disorder. PLAN: Hemodialysis today. Recommend consult with GI for possible endoscopy. VANDANA
[2016-10-15 11:55] LABS: Glucose,Whole Blood 148 mg/dL (75-99)
[2016-10-15 15:12] VITALS: BP 143/76; PULSE 65; TEMP 96.7
--- NOTE | 2016-10-18 12:29 | DS ---
FINAL DIAGNOSES: 1. Severe abdominal pain with intractable vomiting, possible acute gastritis, possible acute exacerbation. 2. Hypertensive urgency. 3. Chronic renal failure on hemodialysis, Stage V. 4. Diabetes type 2. 5. Anemia. DISCHARGE DISPOSITION: The patient is being discharged in stable condition with guarded prognosis. Total time taken 35 minutes. HISTORY OF PRESENT ILLNESS: This 41-year-old gentleman with past medical history of multiple complex medical problems admitted with intractable vomiting and nausea and abdominal pain. The patient treated symptomatically. The pain improved significantly. Hemodialysis continued and the patient also recommended to follow-up in the outpatient setting with Gastroenterology and as well as [facility] Gastroenterology department. On exam, vital signs are stable. CARDIOVASCULAR: S1, S2. Abdomen soft. Nervous system: No focal deficits. DISCHARGE ADVICE AND MEDICATIONS: 1. Diet is soft, bland. 2. Follow-up with Dr. Rush as advised. 3. Follow-up with gastroenterology as recommended. 4. Follow-up with Dr. Onofre in two to three days. 5. Norvasc 10 mg po daily. 6. PhosLo 667 po daily. 7. Coreg 25 mg po b.i.d. 8. Sensipar 60 mg q.h.s. 9. Catapres 0.2 mg t.i.d. prn. 10. Flexeril 10 mg q.h.s. prn 11. Benadryl 25 mg po t.i.d. 13. Pepcid 20 mg daily. 14. Vitamin B complex. 15. Apresoline 100 mg po t.i.d. 16. Dilaudid 2 mg po daily. 17. Lantus 20 units subcu q.h.s. 18. Humalog to scale. 19. Lisinopril 5 mg po daily. 20. Ativan 1 mg po daily. 21. Prilosec 20 mg daily. 22. Zofran 4 mg q8h prn. Once again, the patient will be discharged in stable condition with guarded prognosis. MTDD
--- NOTE | 2016-10-19 12:21 | CDI ---
In responding to this query, please exercise your independent professional judgment. The [facility] Coding Staff and Clinical Documentation Specialists appreciate your assistance in clarifying documentation, maintaining compliance with coding guidelines, accurately documenting patients condition and capturing severity of illness. The fact that a question is asked does not imply that any particular answer is desired or expected. Communication forms are a method of clarifying documentation and are not made part of the Legal Health Record. Thank you in advance for your clarification. Last Revision, December 2014 Kristina Lim [address] [facility] [place] [address] Documentation Clarification Form Date: 10/19/2016 12:11:00 PM From: Shreya George Admit Date: 10/13/2016 9:16:00 PM Patient Name: Joaquim Fowler Visit Number: [id number] Discharge Date: 10/15/16 Dr. Cristóbal Juan Conflicting documentation has been found in the medical record. The consult by Dr Rush documents Endstage renal disease. Per your DS and PN you documented Stage V chronic renal disease. Clinical Indicators: GFR 7 on admission, 6 on 10/14 Treatment: On renal dialysis In your opinion what is the most clinically appropriate diagnosis for this patient? Stage V Endstage renal disease Unable to determine (no explanation for clinical findings) Please document your addendum in your discharge summary in order to capture severity of illness and risk of mortality. FYI: Press F11 to launch patient chart. If you have a question about this query, please contact Janet Mari, Mail Order Clerk, Kristina Lim at [phone] between 8am and 5pm. VANDANA
--- NOTE | 2016-10-20 13:05 | DS ---
DISCHARGE SUMMARY Please add. FINAL DIAGNOSIS: End-stage renal disease. MMODL / IJN: [id number] /
== END 2016-10-15 17:12 | disposition home or self-care (01) | DRG 73 ==
LOC: EC 15:10 → 4MS4W 21:16
PROVIDERS: ADMIT Hospitalist; ATTEND Hospitalist
PROC: 5A1D00Z (ICD-10-PCS; principal; 2016-10-15)
DX: E10.43 Type 1 diabetes mellitus with diabetic autonomic (poly)neuropathy (principal); N18.6 End stage renal disease; I13.2 Hypertensive heart and chronic kidney disease with heart failure and with stage 5 chronic kidney disease, or end stage renal disease; N17.9 Acute kidney failure, unspecified; E10.22 Type 1 diabetes mellitus with diabetic chronic kidney disease; K31.84 Gastroparesis; E10.65 Type 1 diabetes mellitus with hyperglycemia; I50.9 Heart failure, unspecified; G89.29 Other chronic pain; E10.319 Type 1 diabetes mellitus with unspecified diabetic retinopathy without macular edema; E03.9 Hypothyroidism, unspecified; D63.1 Anemia in chronic kidney disease; K21.9 Gastro-esophageal reflux disease without esophagitis; K29.00 Acute gastritis without bleeding; I16.0 Hypertensive urgency; F32.9 Major depressive disorder, single episode, unspecified; F41.9 Anxiety disorder, unspecified; G40.909 Epilepsy, unspecified, not intractable, without status epilepticus; Z79.4 Long term (current) use of insulin; Z79.899 Other long term (current) drug therapy; Z86.73 Personal history of transient ischemic attack (TIA), and cerebral infarction without residual deficits; Z99.2 Dependence on renal dialysis; Z83.3 Family history of diabetes mellitus
CPT/HCPCS: 36415; 74000; 80048; 80053; 82009; 82150; 83690; 85025; 90935

== ENCOUNTER 2016-10-29 12:05 | Emergency (ER) | payer MEDICARE, OTHER ==
[2016-10-29] MEDS ORDERED: SODIUM CHLORIDE 0.9% 1,000 ML IV STA (12:55)
[2016-10-29] MEDS ORDERED: HALOPERIDOL LACTATE 5 MG/ML 1 ML VIAL IVP STA (12:55)
[2016-10-29] MEDS ORDERED: ONDANSETRON 4 MG/2 ML VIAL IVP STA (12:56)
--- NOTE | 2016-10-29 13:06 | ED ---
General Adult HPI - General Chief complaint: Abdominal Pain Stated complaint: Vomiting Time Seen by Provider: 10/29/16 12:41 Source: patient, RN notes reviewed Mode of arrival: wheelchair Limitations: no limitations - History of Present Illness Initial comments: 41-year-old male presents to the emergency department with a chief complaint of flareup of his gastroparesis. This started today. He was too ill to go to dialysis. He does have a history of type 1 diabetes regardless to dialysis Saturday. Patient has had nausea vomiting with this. He complains of terrible centralized abdominal pain. He saw gastroenterology scheduled to have an EGD done in about a week or so. He was concerned due to the intensity of his pain so they thought that they should be evaluated. patient is moaning and screaming in pain in the room rolling around on the bed. He states pain is 10 out of 10.Patient denies any recent fever, chills, shortness of breath, chest pain, back pain, numbness or tingling, dysuria or hematuria, constipation or diarrhea, headaches or visual changes, or any other current symptoms. - Related Data Home Medications Medication Instructions Recorded Confirmed LORazepam [Ativan] 1 mg PO DAILY PRN 06/06/14 10/29/16 Carvedilol [Coreg] 25 mg PO BID 07/10/14 10/29/16 amLODIPine BESYLATE [Amlodipine 10 mg PO DAILY 06/24/15 10/29/16 Besylate] Cinacalcet HCl [Sensipar] 60 mg PO HS 10/31/15 10/29/16 Insulin Glargine [Lantus] 12 unit SQ HS 01/12/16 10/29/16 Folic Acid-Vit B Complex-Vit C 1 cap PO DAILY 01/25/16 10/29/16 [Nephrocaps] Cyclobenzaprine [Flexeril] 10 mg PO HS PRN 02/20/16 10/29/16 INSULIN LISPRO (humaLOG) [humaLOG See Protocol SQ AC-TID 02/20/16 10/29/16 (formulary)] Omeprazole [PriLOSEC] 20 mg PO DAILY 02/20/16 10/29/16 HYDROmorphone [Dilaudid] 2 mg PO DAILY PRN 03/28/16 10/29/16 hydrALAZINE HCL [Apresoline] 100 mg PO TID 03/28/16 10/29/16 Lisinopril 5 mg PO DAILY 06/13/16 10/29/16 Calcium Acetate [PhosLo] 667 mg PO DAILY 07/13/16 10/29/16 Diphenoxylate HCl/Atropine 1 tab PO Q8H PRN 07/13/16 10/29/16 [Lomotil 2.5-0.025 mg Tablet] Famotidine [Pepcid] 20 mg PO DAILY PRN 07/13/16 10/29/16 diphenhydrAMINE HCL [Benadryl] 25 mg PO TID PRN 07/14/16 10/29/16 Previous Rx's Medication Instructions Recorded cloNIDine HCL [Catapres] 0.2 mg PO TID tab 02/20/16 Ondansetron Odt [Zofran ODT] 4 mg PO Q8HR PRN #12 tab 08/27/16 Allergies Allergy/AdvReac Type Severity Reaction Status Date / Time codeine Allergy Rash/Hives Verified 10/29/16 13:49 metoclopramide HCl AdvReac Muscle Verified 10/29/16 13:49 [From Reglan] Spasms morphine AdvReac Increases Verified 10/29/16 13:49 Pain Review of Systems ROS Statement: Those systems with pertinent positive or pertinent negative responses have been documented in the HPI. ROS Other: All systems not noted in ROS Statement are negative. Past Medical History Past Medical History: Chest Pain / Angina, Heart Failure, CVA/TIA, Diabetes Mellitus, Dialysis, Eye Disorder, GERD/Reflux, Hypertension, Renal Disease, Seizure Disorder, Thyroid Disorder Additional Past Medical History / Comment(s): Chronic renal failure stage IV, hemodialysis M/W/FR, past peritoneal dialysis with peritonitis, gastroparesis, cyclic vomiting, chronic abdominal pain, pancreatitis, IDDM type I brittle, heart murmur, heat stroke-no residual, diabetic retinopathy bilaterally, retinal detachment with surgery, hypothyroid, hiatal hernia, sinusitis, bronchitis, chronic back pain, anemia, last seizure in 2015. History of Any Multi-Drug Resistant Organisms: None Reported Past Surgical History: Cholecystectomy, Heart Catheterization, Hernia Repair Additional Past Surgical History / Comment(s): bilateral retinal reattachment sx , hemodialysis catheter in Feb 2013, lt arm fistual, L inguinal hernia, 2010 cardiac cath. Past Anesthesia/Blood Transfusion Reactions: No Reported Reaction Past Psychological History: Anxiety, Depression Smoking Status: Former smoker Past Alcohol Use History: None Reported Past Drug Use History: None Reported - Past Family History Father History Unknown: Yes Mother History Unknown: Yes Family Medical History: COPD Additional Family Medical History / Comment(s): Mother has never smoked. Mother' s brother had diabetes and multiple sclerosis. Brother(s) Family Medical History: Diabetes Mellitus Additional Family Medical History / Comment(s): multiple sclerosis General Exam - General Exam Comments Initial Comments: General: The patient is awake and alert, in no distress, and does not appear acutely ill. Eye: Pupils are equal, round and reactive to light, extra-ocular movements are intact; there is normal conjunctiva bilaterally. No signs of icterus. Ears, nose, mouth and throat: There are moist mucous membranes and no oral lesions. Neck: The neck is supple, there is no tenderness. Cardiovascular: There is a regular rate and rhythm. No murmur, rub or gallop is appreciated. Respiratory: Lungs are clear to auscultation, respirations are non-labored, breath sounds are equal. No wheezes, stridor, rales, or rhonchi. Gastrointestinal: Soft, non-distended, non-tender abdomen without masses or organomegaly noted. There is no rebound or guarding present. No CVA tenderness. Bowel sounds are unremarkable. Back: There is no tenderness to palpation in the midline. There is no obvious deformity. No rashes noted. Musculoskeletal: Normal ROM, no tenderness, There is no pedal edema. There is no calf tenderness or swelling. Sensation intact. Pulses equal bilaterally 2+. Neurological: CN II-XII intact, There are no obvious motor or sensory deficits. Coordination appears grossly intact. Speech is normal. Skin: Skin is warm and dry and no rashes or lesions are noted. Psychiatric: Cooperative, appropriate mood & affect, normal judgment. Limitations: no limitations Course Vital Signs 10/29/16 10/29/16 10/29/16 12:13 14:24 14:58 Temperature 97.0 F L 98 F 97.8 F Pulse Rate 91 94 98 Respiratory 22 16 20 Rate Blood Pressure 236/104 204/101 O2 Sat by Pulse 95 97 97 Oximetry 10/29/16 15:39 Temperature Pulse Rate 96 Respiratory 20 Rate Blood Pressure 191/89 O2 Sat by Pulse 99 Oximetry Medical Decision Making - Medical Decision Making 41-year-old male presents for flareup of gastroparesis.at this time patient was reexamined and she states she is feeling much better. He states that he would like to go home. At this time we did discuss that he does need to go directly to dialysis he states that they will let him and he can do that today. We discussed return parameters and all his questions. The family stated he understood and he is agreement plan. She will be discharged. - Lab Data Result diagrams: 10/29/16 12:50 10/29/16 12:50 Lab Results 10/29/16 10/29/16 Range/Units 12:50 12:50 WBC 8.4 (3.8-10.6) k/uL RBC 3.75 L (4.30-5.90) m/uL Hgb 11.5 L (13.0-17.5) gm/dL Hct 35.7 L (39.0-53.0) % MCV 95.2 (80.0-100.0) fL MCH 30.6 (25.0-35.0) pg MCHC 32.2 (31.0-37.0) g/dL RDW 15.9 H (11.5-15.5) % Plt Count 209 (150-450) k/uL Neutrophils % 83 % Lymphocytes % 7 % Monocytes % 5 % Eosinophils % 2 % Basophils % 1 % Neutrophils # 7.0 (1.3-7.7) k/uL Lymphocytes # 0.6 L (1.0-4.8) k/uL Monocytes # 0.4 (0-1.0) k/uL Eosinophils # 0.2 (0-0.7) k/uL Basophils # 0.1 (0-0.2) k/uL Sodium 142 (137-145) mmol/L Potassium 5.7 H (3.5-5.1) mmol/L Chloride 101 (98-107) mmol/L Carbon Dioxide 19 L (22-30) mmol/L Anion Gap 22 mmol/L BUN 72 H (9-20) mg/dL Creatinine 11.08 H* (0.66-1.25) mg/dL Est GFR (MDRD) Af Amer 6 (>60 ml/min/1.73 sqM) Est GFR (MDRD) Non-Af 5 (>60 ml/min/1.73 sqM) Glucose 175 H (74-99) mg/dL Calcium 9.4 (8.4-10.2) mg/dL Total Bilirubin 0.8 (0.2-1.3) mg/dL AST 21 (17-59) U/L ALT 31 (21-72) U/L Alkaline Phosphatase 135 H (38-126) U/L Total Protein 8.2 (6.3-8.2) g/dL Albumin 4.7 (3.5-5.0) g/dL Amylase 82 (30-110) U/L Lipase 176 (23-300) U/L Acetone, Qual Negative (Negative) Disposition Clinical Impression: Nausea and vomiting, Chronic renal failure, stage 4 (severe), Hypertension complicating diabetes Disposition: HOME SELF-CARE Condition: Stable Instructions: Acute Nausea and Vomiting (ED) Additional Instructions: Please use medication as discussed. Please follow up with family doctor if symptoms have not improved over the next two days. Please return to the emergency room if your symptoms increase or worsen or for any other concerns. go to dialysis. Referrals: Kala Onofre MD [Primary Care Provider] - 1-2 days Time of Disposition: 15:59
[2016-10-29 13:21] LABS: Basophils # (A) 0.1 k/uL (0-0.2); Basophils % (A) 1 %; CHCM 31.6; Eosinophils # (A) 0.2 k/uL (0-0.7); Eosinophils % (A) 2 %; HCT 35.7 % (39.0-53.0); HDW 2.31; HGB 11.5 gm/dL (13.0-17.5); Luc # (Auto) 0.25; Luc % (Auto) 3; Lymphocytes # (A) 0.6 k/uL (1.0-4.8); Lymphocytes % (A) 7 %; MCH 30.6 pg (25.0-35.0); MCHC 32.2 g/dL (31.0-37.0); MCV 95.2 fL (80.0-100.0); Mean Platelet Volume 7.7; Monocytes # (A) 0.4 k/uL (0-1.0); Monocytes % (A) 5 %; Neutrophils % (A) 83 %; RBC 3.75 m/uL (4.30-5.90); RDW 15.9 % (11.5-15.5); WBC 8.4 k/uL (3.8-10.6); WBC (Perox) 8.66
[2016-10-29 13:40] LABS: ALT 31 U/L (21-72); AST 21 U/L (17-59); Alkaline Phosphatase 135 U/L (38-126); Amylase 82 U/L (30-110); Anion Gap 22 mmol/L; Blood Urea Nitrogen 72 mg/dL (9-20); Calcium 9.4 mg/dL (8.4-10.2); Carbon Dioxide 19 mmol/L (22-30); Chloride 101 mmol/L (98-107); Glucose 175 mg/dL (74-99); Potassium 5.7 mmol/L (3.5-5.1); Sodium 142 mmol/L (137-145); Total Bilirubin 0.8 mg/dL (0.2-1.3); Total Protein 8.2 g/dL (6.3-8.2)
[2016-10-29 14:10] LABS: Non-African American GFR(MDRD) 5 (>60 ml/min/1.73 sqM)
[2016-10-29] MEDS ORDERED: ENALAPRILAT 1.25 MG/ML 1 ML VIAL IVP STA (14:23)
[2016-10-29 15:00] VITALS: RESP 20
[2016-10-29] MEDS ORDERED: KETOROLAC 30 MG/ML 1 ML VIAL IVP STA (15:01)
[2016-10-29 16:05] VITALS: BP 193/86; PULSE 92; TEMP 97.5
== END 2016-10-29 16:05 | disposition home or self-care (01) ==
LOC: EC 12:05
DX: I13.0 Hypertensive heart and chronic kidney disease with heart failure and stage 1 through stage 4 chronic kidney disease, or unspecified chronic kidney disease (principal); I50.9 Heart failure, unspecified; N18.4 Chronic kidney disease, stage 4 (severe); K21.9 Gastro-esophageal reflux disease without esophagitis; Z99.2 Dependence on renal dialysis; Z86.73 Personal history of transient ischemic attack (TIA), and cerebral infarction without residual deficits; Z90.49 Acquired absence of other specified parts of digestive tract; Z98.890 Other specified postprocedural states; Z95.5 Presence of coronary angioplasty implant and graft; Z87.891 Personal history of nicotine dependence; Z79.4 Long term (current) use of insulin; E03.9 Hypothyroidism, unspecified; E11.9 Type 2 diabetes mellitus without complications; Z79.899 Other long term (current) drug therapy; Z88.5 Allergy status to narcotic agent; Z88.8 Allergy status to other drugs, medicaments and biological substances
CPT/HCPCS: 36415; 80053; 82150; 82009; 83690; 85025; 99284; 96374; 96375 ×3; 96361 ×3; J1630; J2405; J1885

== ENCOUNTER 2016-11-02 03:50 | Emergency (ER) | payer MEDICARE, OTHER ==
[2016-11-02] MEDS ORDERED: ONDANSETRON 4 MG/2 ML VIAL IVP STA (04:47)
[2016-11-02] MEDS ORDERED: HYDROmorphone 1 MG/ML 1 ML SYRINGE IVP STA (04:47)
[2016-11-02 04:50] LABS: Anisocytosis Slight; Basophils # (A) 0.1 k/uL (0-0.2); Basophils % (A) 1 %; CH 30.7; CHCM 33.1; Eosinophils # (A) 0.3 k/uL (0-0.7); Eosinophils % (A) 4 %; HCT 32.4 % (39.0-53.0); HDW 2.36; HGB 10.7 gm/dL (13.0-17.5); Luc % (Auto) 3; Lymphocytes # (A) 1.2 k/uL (1.0-4.8); Lymphocytes % (A) 18 %; MCH 30.7 pg (25.0-35.0); MCHC 32.9 g/dL (31.0-37.0); MCV 93.2 fL (80.0-100.0); Mean Platelet Volume 8.5; Monocytes # (A) 0.5 k/uL (0-1.0); Monocytes % (A) 7 %; Neutrophils # (A) 4.5 k/uL (1.3-7.7); Neutrophils % (A) 66 %; RBC 3.47 m/uL (4.30-5.90); RDW 16.3 % (11.5-15.5); WBC 6.7 k/uL (3.8-10.6); WBC (Perox) 7.24
[2016-11-02 05:03] LABS: Calcium 8.8 mg/dL (8.4-10.2); Potassium 4.7 mmol/L (3.5-5.1); Total Bilirubin 0.6 mg/dL (0.2-1.3); Total Protein 6.8 g/dL (6.3-8.2)
[2016-11-02 05:10] VITALS: RESP 18
--- NOTE | 2016-11-02 05:48 | XR ---
EXAM: XR Abdomen, 1 View CLINICAL HISTORY: Reason: abdominal pain TECHNIQUE: Frontal supine view of the abdomen/pelvis. COMPARISON: [facility] 09/30/16. FINDINGS: Lower thorax: Enlarged cardiac silhouette concerning for cardiomegaly. Lung bases are clear. Gastrointestinal tract: Prominent stool in the transverse colon and splenic flexure. No bowel obstruction. Organs: Cholecystectomy. No calcifications suspicious for urolithiasis. Multiple phleboliths in the pelvis. Atherosclerotic vascular calcifications involving the iliac arteries and femoral arteries. Bones/joints: Unremarkable. IMPRESSION: Prominent amount of stool in the transverse colon and splenic flexure suggestive of constipation. No bowel obstruction or acute disease.
[2016-11-02] MEDS ORDERED: INSULIN REGULAR 100 UNIT/ML VIAL SQ STA (06:03)
--- NOTE | 2016-11-02 06:04 | ED ---
Abdominal Pain HPI - General Chief Complaint: Abdominal Pain Stated Complaint: Abd pain Time Seen by Provider: 11/02/16 04:23 Source: EMS Mode of arrival: EMS Limitations: no limitations - History of Present Illness Initial Comments: Patient is a 41-year-old man who presents with another exacerbation of gastroparesis. The patient states that the symptoms are identical to his previous exacerbations. He has had more or less continuous vomiting and diffuse abdominal pain since the symptoms came on a number of hours ago. Patient denies any new or different symptoms related to this. He is not having any bright blood he vomits there is trace of some dark material. MD Complaint: abdominal pain -: hour(s) Location: diffuse Migration to: no migration Severity: severe Quality: cramping, sharp Consistency: constant Improves With: nothing Worsens With: nothing Associated Symptoms: nausea, vomiting - Related Data Home Medications Medication Instructions Recorded Confirmed LORazepam [Ativan] 1 mg PO DAILY PRN 06/06/14 12/10/16 Carvedilol [Coreg] 25 mg PO BID 07/10/14 12/10/16 amLODIPine BESYLATE [Amlodipine 10 mg PO QAM 06/24/15 12/10/16 Besylate] Cinacalcet HCl [Sensipar] 60 mg PO HS 10/31/15 12/10/16 Folic Acid-Vit B Complex-Vit C 1 cap PO DAILY 01/25/16 12/10/16 [Nephrocaps] Cyclobenzaprine [Flexeril] 10 mg PO TID PRN 02/20/16 12/10/16 INSULIN LISPRO (humaLOG) [humaLOG See Protocol SQ AC-TID 02/20/16 12/10/16 (formulary)] Omeprazole [PriLOSEC] 20 mg PO DAILY 02/20/16 12/10/16 HYDROmorphone [Dilaudid] 2 mg PO DAILY PRN 03/28/16 12/10/16 hydrALAZINE HCL [Apresoline] 100 mg PO TID 03/28/16 12/10/16 Lisinopril 5 mg PO DAILY 06/13/16 12/10/16 Calcium Acetate [PhosLo] 667 mg PO DAILY 07/13/16 12/10/16 Diphenoxylate HCl/Atropine 1 tab PO Q8H PRN 07/13/16 12/10/16 [Lomotil 2.5-0.025 mg Tablet] Famotidine [Pepcid] 20 mg PO BID PRN 07/13/16 12/10/16 diphenhydrAMINE HCL [Benadryl] 25 mg PO TID PRN 07/14/16 12/10/16 hydrOXYzine HCL 10 mg PO TID PRN 11/15/16 12/10/16 Previous Rx's Medication Instructions Recorded cloNIDine HCL [Catapres] 0.2 mg PO TID tab 02/20/16 Insulin Glargine [Lantus] 12 unit SQ HS #0 12/05/16 Ondansetron Odt [Zofran ODT] 4 mg PO Q8HR PRN #12 tab 12/05/16 Allergies Allergy/AdvReac Type Severity Reaction Status Date / Time codeine Allergy Rash/Hives Verified 12/10/16 07:41 metoclopramide HCl AdvReac Muscle Verified 12/10/16 07:41 [From Reglan] Spasms morphine AdvReac Increases Verified 12/10/16 07:41 Pain Review of Systems ROS Statement: Those systems with pertinent positive or pertinent negative responses have been documented in the HPI. ROS Other: All systems not noted in ROS Statement are negative. Constitutional: Denies: fever, chills Respiratory: Denies: cough, dyspnea Cardiovascular: Denies: chest pain, palpitations, syncope Gastrointestinal: Reports: abdominal pain, nausea, vomiting. Denies: diarrhea, constipation, hematemesis, melena, hematochezia Musculoskeletal: Denies: back pain Skin: Denies: rash Neurological: Denies: headache, weakness, numbness Past Medical History Past Medical History: Chest Pain / Angina, Heart Failure, CVA/TIA, Diabetes Mellitus, Dialysis, Eye Disorder, GERD/Reflux, Hypertension, Renal Disease, Seizure Disorder, Thyroid Disorder Additional Past Medical History / Comment(s): Chronic renal failure stage IV, hemodialysis M/W/, past peritoneal dialysis with peritonitis, gastroparesis, cyclic vomiting, chronic abdominal pain, pancreatitis, IDDM type I brittle, heart murmur, heat stroke-no residual, diabetic retinopathy bilaterally, retinal detachment with surgery, hypothyroid, hiatal hernia, sinusitis, bronchitis, chronic back pain, anemia, last seizure in 2015. History of Any Multi-Drug Resistant Organisms: None Reported Past Surgical History: Cholecystectomy, Heart Catheterization, Hernia Repair Additional Past Surgical History / Comment(s): bilateral retinal reattachment sx , hemodialysis catheter in Feb 2013, lt arm fistual, L inguinal hernia, 2009 cardiac cath. Past Anesthesia/Blood Transfusion Reactions: No Reported Reaction Past Psychological History: Anxiety, Depression Smoking Status: Former smoker Past Alcohol Use History: None Reported Past Drug Use History: None Reported - Past Family History Father History Unknown: Yes Mother History Unknown: Yes Family Medical History: COPD Additional Family Medical History / Comment(s): Mother has never smoked. Mother' s brother had diabetes and multiple sclerosis. Brother(s) Family Medical History: Diabetes Mellitus Additional Family Medical History / Comment(s): multiple sclerosis General Exam Limitations: no limitations General appearance: alert, in distress Head exam: Present: atraumatic, normocephalic Eye exam: Present: normal appearance. Absent: scleral icterus, conjunctival injection Neck exam: Present: normal inspection Respiratory exam: Present: normal lung sounds bilaterally. Absent: respiratory distress, wheezes, rales, rhonchi Cardiovascular Exam: Present: regular rate, normal rhythm, normal heart sounds. Absent: systolic murmur, diastolic murmur, rubs, gallop GI/Abdominal exam: Present: soft, tenderness, diminished bowel sounds. Absent: distended, guarding, rebound, rigid, pulsatile mass, hernia Extremities exam: Present: normal inspection, normal capillary refill. Absent: pedal edema, calf tenderness Back exam: Present: normal inspection. Absent: CVA tenderness (R), CVA tenderness (L) Neurological exam: Present: alert Skin exam: Present: warm, dry, intact, normal color. Absent: rash Course Vital Signs 11/02/16 11/02/16 11/02/16 03:54 05:08 06:03 Temperature 98.3 F Pulse Rate 81 76 85 Respiratory 22 18 18 Rate Blood Pressure 196/107 219/106 199/91 O2 Sat by Pulse 97 98 Oximetry 11/02/16 06:29 Temperature 98.2 F Pulse Rate 79 Respiratory 18 Rate Blood Pressure 214/96 O2 Sat by Pulse 99 Oximetry Medical Decision Making - Medical Decision Making Patient with another exacerbation of his gastroparesis. He did have subsequent improvement following medications, feeling well enough to go home. The labs are in line with his usual exacerbations - Lab Data Result diagrams: 11/02/16 04:32 11/02/16 04:32 Lab Results 11/02/16 11/02/16 11/02/16 Range/Units 04:32 04:32 04:32 WBC 6.7 (3.8-10.6) k/uL RBC 3.47 L (4.30-5.90) m/uL Hgb 10.7 L (13.0-17.5) gm/dL Hct 32.4 L (39.0-53.0) % MCV 93.2 (80.0-100.0) fL MCH 30.7 (25.0-35.0) pg MCHC 32.9 (31.0-37.0) g/dL RDW 16.3 H (11.5-15.5) % Plt Count 186 (150-450) k/uL Neutrophils % 66 % Lymphocytes % 18 % Monocytes % 7 % Eosinophils % 4 % Basophils % 1 % Neutrophils # 4.5 (1.3-7.7) k/uL Lymphocytes # 1.2 (1.0-4.8) k/uL Monocytes # 0.5 (0-1.0) k/uL Eosinophils # 0.3 (0-0.7) k/uL Basophils # 0.1 (0-0.2) k/uL Anisocytosis Slight Sodium 138 (137-145) mmol/L Potassium 4.7 (3.5-5.1) mmol/L Chloride 99 (98-107) mmol/L Carbon Dioxide 22 (22-30) mmol/L Anion Gap 17 mmol/L BUN 56 H (9-20) mg/dL Creatinine 10.00 H* (0.66-1.25) mg/dL Est GFR (MDRD) Af Amer 7 (>60 ml/min/1.73 sqM) Est GFR (MDRD) Non-Af 6 (>60 ml/min/1.73 sqM) Glucose 268 H (74-99) mg/dL Plasma Lactic Acid Ronaldo (0.7-2.0) mmol/L Calcium 8.8 (8.4-10.2) mg/dL Total Bilirubin 0.6 (0.2-1.3) mg/dL AST 17 (17-59) U/L ALT 45 (21-72) U/L Alkaline Phosphatase 138 H (38-126) U/L Total Protein 6.8 (6.3-8.2) g/dL Albumin 3.9 (3.5-5.0) g/dL Amylase 65 (30-110) U/L Lipase 156 (23-300) U/L Acetone, Qual Negative (Negative) 11/02/16 Range/Units 04:32 WBC (3.8-10.6) k/uL RBC (4.30-5.90) m/uL Hgb (13.0-17.5) gm/dL Hct (39.0-53.0) % MCV (80.0-100.0) fL MCH (25.0-35.0) pg MCHC (31.0-37.0) g/dL RDW (11.5-15.5) % Plt Count (150-450) k/uL Neutrophils % % Lymphocytes % % Monocytes % % Eosinophils % % Basophils % % Neutrophils # (1.3-7.7) k/uL Lymphocytes # (1.0-4.8) k/uL Monocytes # (0-1.0) k/uL Eosinophils # (0-0.7) k/uL Basophils # (0-0.2) k/uL Anisocytosis Sodium (137-145) mmol/L Potassium (3.5-5.1) mmol/L Chloride (98-107) mmol/L Carbon Dioxide (22-30) mmol/L Anion Gap mmol/L BUN (9-20) mg/dL Creatinine (0.66-1.25) mg/dL Est GFR (MDRD) Af Amer (>60 ml/min/1.73 sqM) Est GFR (MDRD) Non-Af (>60 ml/min/1.73 sqM) Glucose (74-99) mg/dL Plasma Lactic Acid Ronaldo 0.8 (0.7-2.0) mmol/L Calcium (8.4-10.2) mg/dL Total Bilirubin (0.2-1.3) mg/dL AST (17-59) U/L ALT (21-72) U/L Alkaline Phosphatase (38-126) U/L Total Protein (6.3-8.2) g/dL Albumin (3.5-5.0) g/dL Amylase (30-110) U/L Lipase (23-300) U/L Acetone, Qual (Negative) Disposition Clinical Impression: Gastroparesis Disposition: HOME SELF-CARE Condition: Fair Instructions: Chronic Abdominal Pain (ED) Referrals: Kala Onofre MD [Primary Care Provider] - 1-2 days
[2016-11-02 06:30] VITALS: BP 214/96; PULSE 79; TEMP 98.2
--- NOTE | 2016-11-06 04:55 | CDI ---
Documentation Clarification OP Dear Paul Allen Please do addendum to ED report for missing HPI and Physical examination. Thank you, Haleigh Cárdenas Expediter Service Order If you have any questions, please contact Director Of Kids at [phone] [facility]
== END 2016-11-02 06:34 | disposition home or self-care (01) ==
LOC: EC 03:50
DX: K31.84 Gastroparesis (principal); I13.0 Hypertensive heart and chronic kidney disease with heart failure and stage 1 through stage 4 chronic kidney disease, or unspecified chronic kidney disease; N18.4 Chronic kidney disease, stage 4 (severe); I50.9 Heart failure, unspecified; E10.9 Type 1 diabetes mellitus without complications; E03.9 Hypothyroidism, unspecified; K21.9 Gastro-esophageal reflux disease without esophagitis; Z99.2 Dependence on renal dialysis; Z90.49 Acquired absence of other specified parts of digestive tract; Z95.5 Presence of coronary angioplasty implant and graft; Z86.73 Personal history of transient ischemic attack (TIA), and cerebral infarction without residual deficits; Z87.891 Personal history of nicotine dependence; Z79.4 Long term (current) use of insulin; Z79.899 Other long term (current) drug therapy; Z88.5 Allergy status to narcotic agent; Z88.8 Allergy status to other drugs, medicaments and biological substances; Z53.20 Procedure and treatment not carried out because of patient's decision for unspecified reasons
CPT/HCPCS: 99284; 96374; 96375; 36415; 80053; 82150; 82009; 83605; 83690; 85025; 74000; J2405; J1170

== ENCOUNTER → 2016-11-09 | Outpatient (CLI) | payer MEDICARE, OTHER ==
--- NOTE | 2016-11-09 11:36 | NM ---
EXAMINATION TYPE: NM gastric emptying study DATE OF EXAM: 11/09/2016 COMPARISON: NONE HISTORY: Gastroparesis, diabetes Following administration of 5.37 mCi Tc 99m Sulfur Colloid with 1 cup of oatmeal projection images of the abdomen were obtained 7min minutes post ingestion. When possible, both anterior and posterior pr ojection images were obtained to allow the calculation of the geometric mean activity. Clearance: 4 % Gastroesophageal reflux: Present IMPRESSION: Gastric emptying: Very low emptying of 4%. Gastroesophageal reflux: Present during this exam Gastric emptying normal percentage values: 30 minutes: <70% of retention (> 30% emptying) suggests abnormally fast emptying. 60 minutes: <90% retention (>10% emptying) is normal; less than 30% retention (>70% emptying) suggest s abnormally rapid emptying. 90 minutes: <65% retention (> 35% emptying) is normal. 120 minutes: <60% retention (> 40% emptying) is normal. 180 minutes: <30% retention (> 70% emptying) is normal. Gastric emptying T-1/2: Solid: The normal range is 60-105 minutes Liquid only: Normal range is 10-45 minutes. Liquid only-children: At 60 minutes, normal range is 44-58 % . Liquid only-infants: At 60 minutes, normal range is 32-64 %. Additional references: Gastric Emptying Scintigraphy [email or web address]
== END | disposition home or self-care (01) ==
LOC: RADNMMAIN 06:48
DX: K21.9 Gastro-esophageal reflux disease without esophagitis (principal); R94.8 Abnormal results of function studies of other organs and systems; E10.43 Type 1 diabetes mellitus with diabetic autonomic (poly)neuropathy
CPT/HCPCS: 78264; A9541

== ENCOUNTER 2016-11-15 21:49 | Emergency (ER) | payer MEDICARE, OTHER ==
[2016-11-15] MEDS ORDERED: SODIUM CHLORIDE 0.9% 1,000 ML IV STA (22:00)
[2016-11-15] MEDS ORDERED: PROMETHAZINE INJ 25 MG/ML 1 ML VIAL IM STA (22:00)
[2016-11-15] MEDS ORDERED: ONDANSETRON 4 MG/2 ML VIAL IVP STA (22:00)
--- NOTE | 2016-11-15 22:12 | ED ---
General Adult HPI - General Stated complaint: abd pain Time Seen by Provider: 11/15/16 22:00 Source: RN notes reviewed - History of Present Illness Initial comments: This is a 41-year-old male who comes in with a complaint of vomiting and abdominal pain. Patient states he chronically has abdominal pain is a hemodialysis patient a scheduled again to go tomorrow. Patient also states he has intractable vomiting at times and that is when his abdominal pain occurs. Patient states she's been in the hospital many many times in the past for the same thing. Patient states he has had no fever or chills she's had no difficulty breathing or chest pain. Patient denies any lightheadedness dizziness. Patient states this is typical for his intractable vomiting in the past. - Related Data Home Medications Medication Instructions Recorded Confirmed LORazepam [Ativan] 1 mg PO DAILY PRN 06/06/14 11/15/16 Carvedilol [Coreg] 25 mg PO BID 07/10/14 11/15/16 amLODIPine BESYLATE [Amlodipine 10 mg PO DAILY 06/24/15 11/15/16 Besylate] Cinacalcet HCl [Sensipar] 60 mg PO HS 10/31/15 11/15/16 Insulin Glargine [Lantus] 12 unit SQ HS 01/12/16 11/15/16 Folic Acid-Vit B Complex-Vit C 1 cap PO DAILY 01/25/16 11/15/16 [Nephrocaps] Cyclobenzaprine [Flexeril] 10 mg PO TID PRN 02/20/16 11/15/16 INSULIN LISPRO (humaLOG) [humaLOG See Protocol SQ AC-TID 02/20/16 11/15/16 (formulary)] Omeprazole [PriLOSEC] 20 mg PO DAILY 02/20/16 11/15/16 HYDROmorphone [Dilaudid] 2 mg PO DAILY PRN 03/28/16 11/15/16 hydrALAZINE HCL [Apresoline] 100 mg PO TID 03/28/16 11/15/16 Lisinopril 5 mg PO DAILY 06/13/16 11/15/16 Calcium Acetate [PhosLo] 667 mg PO DAILY 07/13/16 11/15/16 Diphenoxylate HCl/Atropine 1 tab PO Q8H PRN 07/13/16 11/15/16 [Lomotil 2.5-0.025 mg Tablet] Famotidine [Pepcid] 20 mg PO BID PRN 07/13/16 11/15/16 diphenhydrAMINE HCL [Benadryl] 25 mg PO TID PRN 07/14/16 11/15/16 hydrOXYzine HCL 10 - 50 mg PO TID PRN 11/15/16 11/15/16 Previous Rx's Medication Instructions Recorded cloNIDine HCL [Catapres] 0.2 mg PO TID tab 02/20/16 Ondansetron Odt [Zofran ODT] 4 mg PO Q8HR PRN #12 tab 08/27/16 Allergies Allergy/AdvReac Type Severity Reaction Status Date / Time codeine Allergy Rash/Hives Verified 11/15/16 22:56 metoclopramide HCl AdvReac Muscle Verified 11/15/16 22:56 [From Reglan] Spasms morphine AdvReac Increases Verified 11/15/16 22:56 Pain Review of Systems ROS Statement: Those systems with pertinent positive or pertinent negative responses have been documented in the HPI. ROS Other: All systems not noted in ROS Statement are negative. Past Medical History Past Medical History: Chest Pain / Angina, Heart Failure, CVA/TIA, Diabetes Mellitus, Dialysis, Eye Disorder, GERD/Reflux, Hypertension, Renal Disease, Seizure Disorder, Thyroid Disorder Additional Past Medical History / Comment(s): Chronic renal failure stage IV, hemodialysis M/W/FR, past peritoneal dialysis with peritonitis, gastroparesis, cyclic vomiting, chronic abdominal pain, pancreatitis, IDDM type I brittle, heart murmur, heat stroke-no residual, diabetic retinopathy bilaterally, retinal detachment with surgery, hypothyroid, hiatal hernia, sinusitis, bronchitis, chronic back pain, anemia, last seizure in 2015. History of Any Multi-Drug Resistant Organisms: None Reported Past Surgical History: Cholecystectomy, Heart Catheterization, Hernia Repair Additional Past Surgical History / Comment(s): bilateral retinal reattachment sx , hemodialysis catheter in Feb 2013, lt arm fistual, L inguinal hernia, 2009 cardiac cath. Past Anesthesia/Blood Transfusion Reactions: No Reported Reaction Past Psychological History: Anxiety, Depression Smoking Status: Former smoker Past Alcohol Use History: None Reported Past Drug Use History: None Reported - Past Family History Father History Unknown: Yes Mother History Unknown: Yes Family Medical History: COPD Additional Family Medical History / Comment(s): Mother has never smoked. Mother' s brother had diabetes and multiple sclerosis. Brother(s) Family Medical History: Diabetes Mellitus Additional Family Medical History / Comment(s): multiple sclerosis General Exam - General Exam Comments Initial Comments: GENERAL: Patient is well-developed and well-nourished. Patient is nontoxic and well- hydrated and is in mild distress. ENT: Neck is soft and supple. No significant lymphadenopathy is noted. Oropharynx is clear. Moist mucous membranes. Neck has full range of motion without eliciting any pain. EYES: The sclera were anicteric and conjunctiva were pink and moist. Extraocular movements were intact and pupils were equal round and reactive to light. Eyelids were unremarkable. PULMONARY: Unlabored respirations. Good breath sounds bilaterally. No audible rales rhonchi or wheezing was noted. CARDIOVASCULAR: There is a regular rate and rhythm without any murmurs gallops or rubs. ABDOMEN: Mild epigastric abdominal pain. No palpable organomegaly was noted. There is no palpable pulsatile mass. SKIN: Skin is clear with no lesions or rashes and otherwise unremarkable. NEUROLOGIC: Patient is alert and oriented x3. Cranial nerves II through XII are grossly intact. Motor and sensory are also intact. Normal speech, volume and content. Symmetrical smile. MUSCULOSKELETAL: Normal extremities with adequate strength and full range of motion. No lower extremity swelling or edema. No calf tenderness. PSYCHIATRIC: Normal psychiatric evaluation. Normal interpersonal interactions appears functionally intact in deals appropriately with others. No signs of depression. No signs of anxiety. Course Vital Signs 11/15/16 11/15/16 22:00 22:49 Temperature 98.2 F Pulse Rate 82 80 Respiratory 22 18 Rate Blood Pressure 227/118 186/92 O2 Sat by Pulse 98 96 Oximetry Medical Decision Making - Medical Decision Making I will back into the room patient states she was no longer nauseous. Patient states he has pain medicine at home if he gets any more abdominal pain. Patient states she'll follow-up tomorrow to get dialysis. - Lab Data Result diagrams: 11/15/16 22:25 11/15/16 22:25 Lab Results 11/15/16 11/15/16 Range/Units 22:25 22:25 WBC 8.1 (3.8-10.6) k/uL RBC 3.68 L (4.30-5.90) m/uL Hgb 11.4 L (13.0-17.5) gm/dL Hct 35.8 L (39.0-53.0) % MCV 97.4 (80.0-100.0) fL MCH 31.1 (25.0-35.0) pg MCHC 31.9 (31.0-37.0) g/dL RDW 17.1 H (11.5-15.5) % Plt Count 176 (150-450) k/uL Neutrophils % 73 % Lymphocytes % 14 % Monocytes % 6 % Eosinophils % 4 % Basophils % 1 % Neutrophils # 6.0 (1.3-7.7) k/uL Lymphocytes # 1.2 (1.0-4.8) k/uL Monocytes # 0.5 (0-1.0) k/uL Eosinophils # 0.3 (0-0.7) k/uL Basophils # 0.1 (0-0.2) k/uL Hypochromasia Slight Anisocytosis Slight Macrocytosis Slight Sodium 138 (137-145) mmol/L Potassium 4.7 (3.5-5.1) mmol/L Chloride 97 L (98-107) mmol/L Carbon Dioxide 26 (22-30) mmol/L Anion Gap 15 mmol/L BUN 36 H (9-20) mg/dL Creatinine 7.30 H* (0.66-1.25) mg/dL Est GFR (MDRD) Af Amer 10 (>60 ml/min/1.73 sqM) Est GFR (MDRD) Non-Af 8 (>60 ml/min/1.73 sqM) Glucose 270 H (74-99) mg/dL Calcium 9.6 (8.4-10.2) mg/dL Total Bilirubin 0.7 (0.2-1.3) mg/dL AST 23 (17-59) U/L ALT 42 (21-72) U/L Alkaline Phosphatase 149 H (38-126) U/L Total Protein 7.3 (6.3-8.2) g/dL Albumin 4.1 (3.5-5.0) g/dL Amylase 57 (30-110) U/L Lipase 176 (23-300) U/L Disposition Clinical Impression: Vomiting, Chronic abdominal pain Disposition: HOME SELF-CARE Instructions: Abdominal Pain (ED) Time of Disposition: 23:18
[2016-11-15] MEDS ORDERED: hydrALAZINE HCL 20 MG/ML 1 ML VIAL IVP STA (22:13)
[2016-11-15 22:42] LABS: Anisocytosis Slight; Basophils # (A) 0.1 k/uL (0-0.2); Basophils % (A) 1 %; CH 30.2; CHCM 31.2; Eosinophils # (A) 0.3 k/uL (0-0.7); Eosinophils % (A) 4 %; HCT 35.8 % (39.0-53.0); HDW 2.51; HGB 11.4 gm/dL (13.0-17.5); Hypochromasia Slight; Luc % (Auto) 3; Lymphocytes # (A) 1.2 k/uL (1.0-4.8); Lymphocytes % (A) 14 %; MCH 31.1 pg (25.0-35.0); MCHC 31.9 g/dL (31.0-37.0); MCV 97.4 fL (80.0-100.0); Macrocytosis Slight; Mean Platelet Volume 7.6; Monocytes # (A) 0.5 k/uL (0-1.0); Monocytes % (A) 6 %; Neutrophils % (A) 73 %; RBC 3.68 m/uL (4.30-5.90); RDW 17.1 % (11.5-15.5); WBC 8.1 k/uL (3.8-10.6); WBC (Perox) 8.56
[2016-11-15 22:47] LABS: Calcium 9.6 mg/dL (8.4-10.2); Potassium 4.7 mmol/L (3.5-5.1); Total Bilirubin 0.7 mg/dL (0.2-1.3); Total Protein 7.3 g/dL (6.3-8.2)
[2016-11-15 22:50] VITALS: RESP 18
--- NOTE | 2016-11-15 23:14 | XR ---
EXAMINATION TYPE: XR KUB DATE OF EXAM: 11/15/2016 COMPARISON: 11/02/2016 HISTORY: Abdominal pain TECHNIQUE: 2 views FINDINGS: There is no sign of intestinal obstruction or pneumoperitoneum. Fecal pattern is normal. Th ere is diffuse vascular calcification and also in the kidneys. There are clips from cholecystectomy. Lung bases are clear. Heart is enlarged. I see no evidence of a renal stone. There is no sign of pleu ral effusion. IMPRESSION: Extensive vascular calcification. No sign of an acute abdomen. Cardiomegaly. No change.
[2016-11-15 23:36] VITALS: BP 188/91; PULSE 89; TEMP 98.7
== END 2016-11-15 23:35 | disposition home or self-care (01) ==
LOC: EC 21:49
DX: R11.10 Vomiting, unspecified (principal); R10.13 Epigastric pain; G89.29 Other chronic pain; I13.0 Hypertensive heart and chronic kidney disease with heart failure and stage 1 through stage 4 chronic kidney disease, or unspecified chronic kidney disease; N18.4 Chronic kidney disease, stage 4 (severe); I50.9 Heart failure, unspecified; E10.22 Type 1 diabetes mellitus with diabetic chronic kidney disease; K21.9 Gastro-esophageal reflux disease without esophagitis; D64.9 Anemia, unspecified; E10.43 Type 1 diabetes mellitus with diabetic autonomic (poly)neuropathy; E10.319 Type 1 diabetes mellitus with unspecified diabetic retinopathy without macular edema; K31.84 Gastroparesis; Z86.73 Personal history of transient ischemic attack (TIA), and cerebral infarction without residual deficits; Z90.49 Acquired absence of other specified parts of digestive tract; Z95.5 Presence of coronary angioplasty implant and graft; Z99.2 Dependence on renal dialysis; Z88.8 Allergy status to other drugs, medicaments and biological substances; Z88.5 Allergy status to narcotic agent; Z79.02 Long term (current) use of antithrombotics/antiplatelets; Z79.4 Long term (current) use of insulin; Z79.899 Other long term (current) drug therapy; Z87.891 Personal history of nicotine dependence
CPT/HCPCS: 99284; 96374; 96361; 96372; 36415; 80053; 82150; 83690; 85025; 74000; J0360; J2550

== ENCOUNTER 2016-11-29 09:36 | Day surgery (SDC) | payer MEDICARE, OTHER ==
[2016-11-28 12:04] VITALS: BMI 21.1
[~2016-11-29 09:36] MED LIST: LACTATED RINGERS 1,000 ML IV SCH; ONABOTULINUMTOXINA 100 UNIT VIAL MISCELLANE ONE
[2016-11-29 10:44] VITALS: TEMP 96.9
[2016-11-29 10:51] LABS: Glucose,Whole Blood 124 mg/dL (75-99)
[2016-11-29] MEDS ORDERED: LIDOCAINE 1% 20 ML VIAL (10MG/ML) FOR IV START INTRADERMA ONE (10:54)
[2016-11-29] MEDS ORDERED: SODIUM CHLORIDE 0.9% 500 ML IV ONE (10:58)
[2016-11-29] MEDS ORDERED: MIDAZOLAM 2 MG/2 ML VIAL ONE (11:06)
[2016-11-29] MEDS ORDERED: fentaNYL (PF) 50 MCG/ML 2 ML AMP ONE (11:06)
[2016-11-29] MEDS ORDERED: PROPOFOL 10 MG/ML 20 ML VIAL IV ONE (11:06)
[2016-11-29] MEDS ORDERED: ONABOTULINUMTOXINA 100 UNIT VIAL IM ONE (11:18)
--- NOTE | 2016-11-29 11:36 | P.PCN ---
Date of Procedure: 11/29/16 Procedure(s) Performed: Procedure: Esophagogastroduodenoscopy and injection of a total of 100 units Botox in the pyloric sphincter in 4 different quadrants. Preoperative diagnosis: Gastroparesis with intractable symptoms. Postoperative diagnosis: 1. Partially digested food in the stomach consistent with gastroparesis with no evidence of mechanical obstruction to the gastric outlet. 2. A total of 100 units of Botox were injected in 4 different quadrants in the pyloric sphincter area. Preparation and sedation: Was provided by anesthesia. Brief clinical history: The patient is a 41-year-old male with insulin- dependent diabetes mellitus diagnosed many years ago was been having intractable symptoms of nausea, vomiting and epigastric pain. His gastric emptying study showed less than 4% emptying. The patient has intolerance/ ALLERGIES to Reglan. This evaluation was planned to apply Botox to the pyloric sphincter. Procedure: With the patient on his left lateral decubitus position and after informed consent and adequate sedation, I passed the Olympus-GIF 160 video upper endoscope through the cricopharyngeus down the esophagus. GE junction was around 40-41 cm from the incisors and there was no definite hiatal hernia. The esophagus did not show any obvious esophagitis or complicated reflux disease. There was no evidence of Nubia infection or other pathology. The endoscope was then passed into the stomach which was insufflated with air and inspected in detail including the retroflex view in the cardia. There was large amounts of partially digested food retained in the stomach but there was no evidence of mechanical obstruction to the gastric outlet. Pyloric channel, duodenal bulb, post bulbar area and descending duodenum did not show any obvious abnormalities. The mucosa of the stomach, where visualized, appeared healthy. At this point, I proceeded to inject a total of 100 units of Botox in each of 4 quadrants of the pyloric channel using the needle catheter which was introduced through the operating channel of the endoscope.. The patient tolerated the procedure well and did not have any immediate complications. Plan: I summarized the findings and the procedure details to the patient and his mother. Will monitor his response and make further plans accordingly. I will keep you updated on his progress.
[2016-11-29 11:39] VITALS: RESP 16
[2016-11-29 11:53] VITALS: BP 115/66; PULSE 61
== END 2016-11-29 12:30 | disposition home or self-care (01) ==
LOC: ORWHC2ENDO 09:36
DX: E11.43 Type 2 diabetes mellitus with diabetic autonomic (poly)neuropathy (principal); K31.84 Gastroparesis; K21.9 Gastro-esophageal reflux disease without esophagitis; Z99.2 Dependence on renal dialysis; I50.9 Heart failure, unspecified; I13.2 Hypertensive heart and chronic kidney disease with heart failure and with stage 5 chronic kidney disease, or end stage renal disease; N18.6 End stage renal disease; Z79.4 Long term (current) use of insulin; Z88.5 Allergy status to narcotic agent; Z88.8 Allergy status to other drugs, medicaments and biological substances; Z79.899 Other long term (current) drug therapy; Z86.73 Personal history of transient ischemic attack (TIA), and cerebral infarction without residual deficits
CPT/HCPCS: 43236; J2250; J0585; J3010; J2704

== ENCOUNTER 2016-12-09 15:10 | Emergency (ER) | payer MEDICARE, OTHER ==
[2016-12-09] MEDS ORDERED: SODIUM CHLORIDE 0.9% 2,000 ML IV STA (15:23)
[2016-12-09] MEDS ORDERED: diphenhydrAMINE 50 MG/ML 1 ML VIAL IVP STA (15:23)
[2016-12-09 15:24] VITALS: TEMP 98.1
[2016-12-09] MEDS ORDERED: LORazepam 2 MG/ML INJ IV STA ×2 (15:24→16:57)
[2016-12-09] MEDS ORDERED: HALOPERIDOL LACTATE 5 MG/ML 1 ML VIAL IVP STA (15:27)
--- NOTE | 2016-12-09 15:46 | ED ---
Abdominal Pain HPI - General Chief Complaint: Abdominal Pain Stated Complaint: Abd Pain Time Seen by Provider: 12/09/16 15:12 Source: EMS, RN notes reviewed, old records reviewed Mode of arrival: EMS Limitations: no limitations - History of Present Illness Initial Comments: 41-year-old male well-known to the emergency Department chief complaint of epigastric abdominal pain. Patient reports this started this morning. Patient has a long history of abdominal pain related to gastroparesis from his type 1 diabetes. He also is a dialysis patient and last treatment was on Saturday. Patient states that he's had no fever or chills, chest pain or shortness of breath. He reports no changes in bowel habits. Patient states that he's unable control the pain.Patient denies any recent fever, chills, shortness of breath, chest pain, back pain, , numbness or tingling, dysuria or hematuria, constipation or diarrhea, headaches or visual changes, or any other current symptoms - Related Data Home Medications Medication Instructions Recorded Confirmed LORazepam [Ativan] 1 mg PO DAILY PRN 06/06/14 12/09/16 Carvedilol [Coreg] 25 mg PO BID 07/10/14 12/09/16 amLODIPine BESYLATE [Amlodipine 10 mg PO QAM 06/24/15 12/09/16 Besylate] Cinacalcet HCl [Sensipar] 60 mg PO HS 10/31/15 12/09/16 Folic Acid-Vit B Complex-Vit C 1 cap PO DAILY 01/25/16 12/09/16 [Nephrocaps] Cyclobenzaprine [Flexeril] 10 mg PO TID PRN 02/20/16 12/09/16 INSULIN LISPRO (humaLOG) [humaLOG See Protocol SQ AC-TID 02/20/16 12/09/16 (formulary)] Omeprazole [PriLOSEC] 20 mg PO DAILY 02/20/16 12/09/16 HYDROmorphone [Dilaudid] 2 mg PO DAILY PRN 03/28/16 12/09/16 hydrALAZINE HCL [Apresoline] 100 mg PO TID 03/28/16 12/09/16 Lisinopril 5 mg PO QAM 06/13/16 12/09/16 Calcium Acetate [PhosLo] 667 mg PO DAILY 07/13/16 12/09/16 Diphenoxylate HCl/Atropine 1 tab PO Q8H PRN 07/13/16 12/09/16 [Lomotil 2.5-0.025 mg Tablet] Famotidine [Pepcid] 20 mg PO BID PRN 07/13/16 12/09/16 diphenhydrAMINE HCL [Benadryl] 25 mg PO TID PRN 07/14/16 12/09/16 hydrOXYzine HCL 10 mg PO TID PRN 11/15/16 12/09/16 Previous Rx's Medication Instructions Recorded cloNIDine HCL [Catapres] 0.2 mg PO TID tab 02/20/16 Insulin Glargine [Lantus] 12 unit SQ HS #0 12/05/16 Ondansetron Odt [Zofran ODT] 4 mg PO Q8HR PRN #12 tab 12/05/16 Allergies Allergy/AdvReac Type Severity Reaction Status Date / Time codeine Allergy Rash/Hives Verified 12/09/16 15:58 metoclopramide HCl AdvReac Muscle Verified 12/09/16 15:58 [From Reglan] Spasms morphine AdvReac Increases Verified 12/09/16 15:58 Pain Review of Systems ROS Statement: Those systems with pertinent positive or pertinent negative responses have been documented in the HPI. ROS Other: All systems not noted in ROS Statement are negative. Past Medical History Past Medical History: Chest Pain / Angina, Heart Failure, CVA/TIA, Diabetes Mellitus, Dialysis, Eye Disorder, GERD/Reflux, Hypertension, Renal Disease, Seizure Disorder, Skin Disorder, Thyroid Disorder Additional Past Medical History / Comment(s): scattered skin sores melita arms, Chronic renal failure stage IV, hemodialysis M/W/FR-4 hr, past peritoneal dialysis with peritonitis, gastroparesis, cyclic vomiting, chronic abdominal pain, pancreatitis, IDDM type I brittle, heart murmur, diabetic retinopathy bilaterally, retinal detachment with surgery, hypothyroid, hiatal hernia, sinusitis, bronchitis, chronic back pain, anemia, last seizure in 2015. History of Any Multi-Drug Resistant Organisms: None Reported Past Surgical History: Cholecystectomy, Heart Catheterization, Hernia Repair Additional Past Surgical History / Comment(s): bilateral retinal reattachment sx , hemodialysis catheter in Feb 2013- lt arm fistual, L inguinal hernia, 2010 cardiac cath. Past Anesthesia/Blood Transfusion Reactions: No Reported Reaction Additional Past Anesthesia/Blood Transfusion Reaction / Comment(s): mom states "swelling to uvula with gallbladder surgery went into resp arrest due to blocked airway." Past Psychological History: Anxiety, Depression Smoking Status: Former smoker Past Alcohol Use History: None Reported Past Drug Use History: None Reported - Past Family History Father History Unknown: Yes Mother History Unknown: Yes Family Medical History: COPD Additional Family Medical History / Comment(s): Mother has never smoked. Mother' s brother had diabetes and multiple sclerosis. Brother(s) Family Medical History: Diabetes Mellitus Additional Family Medical History / Comment(s): multiple sclerosis General Exam - General Exam Comments Initial Comments: 41-year-old male. Patient is writhing around the bed. Limitations: no limitations General appearance: alert, in no apparent distress Head exam: Present: atraumatic, normocephalic, normal inspection Eye exam: Present: normal appearance, PERRL, EOMI. Absent: scleral icterus, conjunctival injection, periorbital swelling ENT exam: Present: normal exam, mucous membranes moist Neck exam: Present: normal inspection. Absent: tenderness, meningismus, lymphadenopathy Respiratory exam: Present: normal lung sounds bilaterally. Absent: respiratory distress, wheezes, rales, rhonchi, stridor Cardiovascular Exam: Present: regular rate, normal rhythm, normal heart sounds. Absent: systolic murmur, diastolic murmur, rubs, gallop, clicks GI/Abdominal exam: Present: soft, tenderness (Patient reports epigastric tendernress. ), normal bowel sounds. Absent: distended, guarding, rebound, rigid Extremities exam: Present: normal inspection, full ROM, normal capillary refill. Absent: tenderness, pedal edema, joint swelling, calf tenderness Back exam: Present: normal inspection Neurological exam: Present: alert, oriented X3, CN II-XII intact Psychiatric exam: Present: normal affect Course Vital Signs 12/09/16 12/09/16 12/09/16 15:22 15:49 16:10 Temperature 98.1 F Pulse Rate 88 92 88 Respiratory 24 18 24 Rate Blood Pressure 243/140 224/147 243/114 O2 Sat by Pulse 95 95 95 Oximetry 12/09/16 12/09/16 12/09/16 17:10 17:50 18:20 Temperature 98.1 F Pulse Rate 95 90 96 Respiratory 24 18 18 Rate Blood Pressure 226/114 134/75 152/79 O2 Sat by Pulse 95 93 L 95 Oximetry - Reevaluation(s) Reevaluation #1: 12/09/16 17:57 patient is reevaluated at this time. He is resting comfortably in bed. Patient reports he would like to go home. He states that he does have dialysis tomorrow. EKG shows no acute changes. Medical Decision Making - Medical Decision Making 41-year-old male well-known to the emergency Department chief complaint of acute abdominal pain similar to all previous visits. At this time patient's laboratory was reviewed. Mildly elevated potassium of 5.2. EKG was performed and shows no significant diffuse T-wave abnormalities. Patient was given 2 L of fluid. Given IV pain medication. Patient has dialysis tomorrow. I discussed with the patient's possible admission he were if he would like to go home at this time. Patient will be discharged home and advised to follow-up with primary - Lab Data Result diagrams: 12/09/16 15:41 12/09/16 15:41 Lab Results 12/09/16 12/09/16 Range/Units 15:41 15:41 WBC 6.7 (3.8-10.6) k/uL RBC 3.96 L (4.30-5.90) m/uL Hgb 11.7 L (13.0-17.5) gm/dL Hct 38.2 L (39.0-53.0) % MCV 96.5 (80.0-100.0) fL MCH 29.6 (25.0-35.0) pg MCHC 30.7 L (31.0-37.0) g/dL RDW 14.7 (11.5-15.5) % Plt Count 182 (150-450) k/uL Neutrophils % 78 % Lymphocytes % 11 % Monocytes % 5 % Eosinophils % 4 % Basophils % 1 % Neutrophils # 5.2 (1.3-7.7) k/uL Lymphocytes # 0.7 L (1.0-4.8) k/uL Monocytes # 0.3 (0-1.0) k/uL Eosinophils # 0.3 (0-0.7) k/uL Basophils # 0.1 (0-0.2) k/uL Hypochromasia Slight Sodium 145 (137-145) mmol/L Potassium 5.2 H (3.5-5.1) mmol/L Chloride 104 (98-107) mmol/L Carbon Dioxide 22 (22-30) mmol/L Anion Gap 19 mmol/L BUN 44 H (9-20) mg/dL Creatinine 8.62 H* (0.66-1.25) mg/dL Est GFR (MDRD) Af Amer 8 (>60 ml/min/1.73 sqM) Est GFR (MDRD) Non-Af 7 (>60 ml/min/1.73 sqM) Glucose 78 (74-99) mg/dL Calcium 8.8 (8.4-10.2) mg/dL Total Bilirubin 0.5 (0.2-1.3) mg/dL AST 29 (17-59) U/L ALT 50 (21-72) U/L Alkaline Phosphatase 112 (38-126) U/L Total Protein 7.9 (6.3-8.2) g/dL Albumin 4.5 (3.5-5.0) g/dL Amylase 83 (30-110) U/L Lipase 116 (23-300) U/L Acetone, Qual Negative (Negative) 12/09/16 17:57 EKG shows normal sinus rhythm. Possible left atrial lead. T-wave abnormality considering lateral ischemia. Ventricular rate 90 bpm. NE interval 142 ms. QRS duration 82 ms. QT QTc is 364/464 ms. Disposition Clinical Impression: Chronic abdominal pain, Intractable nausea and vomiting Disposition: HOME SELF-CARE Condition: Good Instructions: Abdominal Pain (ED) Additional Instructions: go to dialysis tomorrow morning. Follow-up with her primary care provider. Return to the emergency department if any alarming signs or symptoms occur. Referrals: Kala Onofre MD [Primary Care Provider] - 1-2 days Time of Disposition: 18:01
[2016-12-09 16:14] LABS: Basophils # (A) 0.1 k/uL (0-0.2); Basophils % (A) 1 %; CH 29.8; Eosinophils # (A) 0.3 k/uL (0-0.7); Eosinophils % (A) 4 %; HCT 38.2 % (39.0-53.0); HGB 11.7 gm/dL (13.0-17.5); Hypochromasia Slight; Luc # (Auto) 0.13; Luc % (Auto) 2; Lymphocytes # (A) 0.7 k/uL (1.0-4.8); Lymphocytes % (A) 11 %; MCH 29.6 pg (25.0-35.0); MCHC 30.7 g/dL (31.0-37.0); MCV 96.5 fL (80.0-100.0); Mean Platelet Volume 7.8; Monocytes # (A) 0.3 k/uL (0-1.0); Monocytes % (A) 5 %; Neutrophils # (A) 5.2 k/uL (1.3-7.7); Neutrophils % (A) 78 %; RBC 3.96 m/uL (4.30-5.90); RDW 14.7 % (11.5-15.5); WBC 6.7 k/uL (3.8-10.6); WBC (Perox) 7.21
[2016-12-09 16:21] LABS: ALT 50 U/L (21-72); AST 29 U/L (17-59); Alkaline Phosphatase 112 U/L (38-126); Amylase 83 U/L (30-110); Anion Gap 19 mmol/L; Blood Urea Nitrogen 44 mg/dL (9-20); Calcium 8.8 mg/dL (8.4-10.2); Carbon Dioxide 22 mmol/L (22-30); Chloride 104 mmol/L (98-107); Glucose 78 mg/dL (74-99); Potassium 5.2 mmol/L (3.5-5.1); Sodium 145 mmol/L (137-145); Total Bilirubin 0.5 mg/dL (0.2-1.3); Total Protein 7.9 g/dL (6.3-8.2)
[2016-12-09 16:26] LABS: Non-African American GFR(MDRD) 7 (>60 ml/min/1.73 sqM)
--- NOTE | 2016-12-09 16:28 | XR ---
EXAMINATION TYPE: XR KUB DATE OF EXAM: 12/09/2016 CLINICAL HISTORY: Abdominal pain. TECHNIQUE: Single supine KUB image of the abdomen is obtained. COMPARISON: None. FINDINGS: Scattered gas is seen in non-distended small bowel loops. Gas and fecal material is seen in non-distended colon. Multiple vascular calcifications are again noted unchanged from the previous study obtained on November 07, 2016. Surgical clips are again noted in the gallbladder fossa. There are also 2 clips in the right mid abdomen which are stable. There is deferens calcifications are also noted. Moderate stool is noted. IMPRESSION: Moderate stool is noted in the colon. There is no significant change in appearance of the abdomen sin ce the previous study on November 15.
[2016-12-09] MEDS ORDERED: HYDROmorphone 1 MG/ML 1 ML SYRINGE IVP STA (16:57)
[2016-12-09 17:57] VITALS: RESP 18
[2016-12-09 18:28] VITALS: BP 152/79; PULSE 96
== END 2016-12-09 18:38 | disposition home or self-care (01) ==
LOC: EC 15:10
DX: R10.13 Epigastric pain (principal); G89.29 Other chronic pain; R11.2 Nausea with vomiting, unspecified; E03.9 Hypothyroidism, unspecified; I13.0 Hypertensive heart and chronic kidney disease with heart failure and stage 1 through stage 4 chronic kidney disease, or unspecified chronic kidney disease; I50.9 Heart failure, unspecified; N18.4 Chronic kidney disease, stage 4 (severe); E10.22 Type 1 diabetes mellitus with diabetic chronic kidney disease; Z99.2 Dependence on renal dialysis; K21.9 Gastro-esophageal reflux disease without esophagitis; G40.909 Epilepsy, unspecified, not intractable, without status epilepticus; F32.9 Major depressive disorder, single episode, unspecified; F41.9 Anxiety disorder, unspecified; Z87.891 Personal history of nicotine dependence; Z79.4 Long term (current) use of insulin; Z79.899 Other long term (current) drug therapy; Z88.5 Allergy status to narcotic agent; Z88.8 Allergy status to other drugs, medicaments and biological substances
CPT/HCPCS: 99285 ×2; 96374 ×2; 96375 ×4; 96376 ×2; 96361 ×3; 36415; 93005; 80053; 82150; 82009; 83690; 85025; 74000; J2060; J1200; J1630; J1170

== ENCOUNTER 2016-12-10 05:38 | Emergency (ER) | payer MEDICARE, OTHER ==
[2016-12-10 05:51] VITALS: RESP 18; TEMP 98.1
[2016-12-10] MEDS ORDERED: HYDROmorphone 0.5 MG/0.5 ML SYRINGE IVP STA (06:04)
[2016-12-10] MEDS ORDERED: SODIUM CHLORIDE 0.9% 500 ML IV STA (06:04)
[2016-12-10] MEDS ORDERED: ONDANSETRON 4 MG/2 ML VIAL IVP STA (06:04)
[2016-12-10 06:50] LABS: Anisocytosis Slight; Basophils # (A) 0.1 k/uL (0-0.2); Basophils % (A) 1 %; CH 30.2; CHCM 31.8; Eosinophils # (A) 0.3 k/uL (0-0.7); Eosinophils % (A) 4 %; HCT 34.9 % (39.0-53.0); HDW 2.43; Luc # (Auto) 0.13; Luc % (Auto) 2; Lymphocytes % (A) 13 %; MCH 30.1 pg (25.0-35.0); MCHC 31.5 g/dL (31.0-37.0); MCV 95.6 fL (80.0-100.0); Mean Platelet Volume 8.6; Monocytes # (A) 0.4 k/uL (0-1.0); Monocytes % (A) 5 %; Neutrophils # (A) 5.7 k/uL (1.3-7.7); Neutrophils % (A) 75 %; RBC 3.65 m/uL (4.30-5.90); WBC 7.5 k/uL (3.8-10.6); WBC (Perox) 7.86
--- NOTE | 2016-12-10 06:55 | XR ---
EXAM: XR Chest, 2 Views CLINICAL HISTORY: Reason: abdominal pain TECHNIQUE: Frontal and lateral views of the chest. COMPARISON: 12/04/16 FINDINGS: Lungs: Unremarkable. No consolidation. Pleural space: Unremarkable. No pneumothorax. Heart: Heart size is upper limits of normal. Mediastinum: Unremarkable. Bones/joints: Unremarkable. IMPRESSION: No acute findings.
--- NOTE | 2016-12-10 06:59 | XR ---
EXAM: XR Abdomen Complete, 2 upright views CLINICAL HISTORY: Reason: abdominal pain TECHNIQUE: Frontal view of the abdomen/pelvis with upright view of the abdomen. COMPARISON: 12/09/16 FINDINGS: Intraperitoneal space: No free air identified. Surgical clips in the right upper and lower abdomen, unchanged. Gastrointestinal tract: No focal small bowel dilatation. Organs: Extensive vascular calcification including the expected region of the renal arteries. This is unchanged. Calcifications in the pelvis, unchanged likely phleboliths and arterial calcifications Bones/joints: Unremarkable. Other findings: Mild retained stool. IMPRESSION: Nonspecific bowel gas pattern with mild retained stool. No free air.
[2016-12-10 07:01] LABS: Potassium 5.2 mmol/L (3.5-5.1)
[2016-12-10 07:02] LABS: Calcium 9.1 mg/dL (8.4-10.2); Total Bilirubin 0.5 mg/dL (0.2-1.3); Total Protein 7.5 g/dL (6.3-8.2)
[2016-12-10 07:54] VITALS: BP 160/82; PULSE 82
--- NOTE | 2016-12-10 07:54 | ED ---
Abdominal Pain HPI - General Chief Complaint: Abdominal Pain Stated Complaint: Abdominal Pain, vomiting Time Seen by Provider: 12/10/16 05:59 Source: patient Mode of arrival: ambulatory Limitations: no limitations - History of Present Illness Initial Comments: 11 years old gentleman with history of gastroparesis and chronic abdominal pain recently saw Dr. Ortega, had some Botox shots in the belly 9 he stating that didn't work and presents this morning with excruciating abdominal pain or pain and he is crying with the pain him his blood pressure is quite elevated blood pressure systolic is 226. He denies any chest pain or shortness of breath does complain about abdominal pain no frequency urgency dysuria - Related Data Home Medications Medication Instructions Recorded Confirmed LORazepam [Ativan] 1 mg PO DAILY PRN 06/06/14 12/10/16 Carvedilol [Coreg] 25 mg PO BID 07/10/14 12/10/16 amLODIPine BESYLATE [Amlodipine 10 mg PO QAM 06/24/15 12/10/16 Besylate] Cinacalcet HCl [Sensipar] 60 mg PO HS 10/31/15 12/10/16 Folic Acid-Vit B Complex-Vit C 1 cap PO DAILY 01/25/16 12/10/16 [Nephrocaps] Cyclobenzaprine [Flexeril] 10 mg PO TID PRN 02/20/16 12/10/16 INSULIN LISPRO (humaLOG) [humaLOG See Protocol SQ AC-TID 02/20/16 12/10/16 (formulary)] Omeprazole [PriLOSEC] 20 mg PO DAILY 02/20/16 12/10/16 HYDROmorphone [Dilaudid] 2 mg PO DAILY PRN 03/28/16 12/10/16 hydrALAZINE HCL [Apresoline] 100 mg PO TID 03/28/16 12/10/16 Lisinopril 5 mg PO DAILY 06/13/16 12/10/16 Calcium Acetate [PhosLo] 667 mg PO DAILY 07/13/16 12/10/16 Diphenoxylate HCl/Atropine 1 tab PO Q8H PRN 07/13/16 12/10/16 [Lomotil 2.5-0.025 mg Tablet] Famotidine [Pepcid] 20 mg PO BID PRN 07/13/16 12/10/16 diphenhydrAMINE HCL [Benadryl] 25 mg PO TID PRN 07/14/16 12/10/16 hydrOXYzine HCL 10 mg PO TID PRN 11/15/16 12/10/16 Previous Rx's Medication Instructions Recorded cloNIDine HCL [Catapres] 0.2 mg PO TID tab 02/20/16 Insulin Glargine [Lantus] 12 unit SQ HS #0 12/05/16 Ondansetron Odt [Zofran ODT] 4 mg PO Q8HR PRN #12 tab 12/05/16 Allergies Allergy/AdvReac Type Severity Reaction Status Date / Time codeine Allergy Rash/Hives Verified 12/10/16 07:41 metoclopramide HCl AdvReac Muscle Verified 12/10/16 07:41 [From Reglan] Spasms morphine AdvReac Increases Verified 12/10/16 07:41 Pain Review of Systems ROS Statement: Those systems with pertinent positive or pertinent negative responses have been documented in the HPI. ROS Other: All systems not noted in ROS Statement are negative. Past Medical History Past Medical History: Chest Pain / Angina, Heart Failure, CVA/TIA, Diabetes Mellitus, Dialysis, Eye Disorder, GERD/Reflux, Hypertension, Renal Disease, Seizure Disorder, Skin Disorder, Thyroid Disorder Additional Past Medical History / Comment(s): scattered skin sores melita arms, Chronic renal failure stage IV, hemodialysis M/W/FR-4 hr, past peritoneal dialysis with peritonitis, gastroparesis, cyclic vomiting, chronic abdominal pain, pancreatitis, IDDM type I brittle, heart murmur, diabetic retinopathy bilaterally, retinal detachment with surgery, hypothyroid, hiatal hernia, sinusitis, bronchitis, chronic back pain, anemia, last seizure in 2015. History of Any Multi-Drug Resistant Organisms: None Reported Past Surgical History: Cholecystectomy, Heart Catheterization, Hernia Repair Additional Past Surgical History / Comment(s): bilateral retinal reattachment sx , hemodialysis catheter in Feb 2013- lt arm fistual, L inguinal hernia, 2009 cardiac cath. Past Anesthesia/Blood Transfusion Reactions: No Reported Reaction Additional Past Anesthesia/Blood Transfusion Reaction / Comment(s): mom states "swelling to uvula with gallbladder surgery went into resp arrest due to blocked airway." Past Psychological History: Anxiety, Depression Smoking Status: Former smoker Past Alcohol Use History: None Reported Past Drug Use History: None Reported - Past Family History Father History Unknown: Yes Mother History Unknown: Yes Family Medical History: COPD Additional Family Medical History / Comment(s): Mother has never smoked. Mother' s brother had diabetes and multiple sclerosis. Brother(s) Family Medical History: Diabetes Mellitus Additional Family Medical History / Comment(s): multiple sclerosis General Exam - General Exam Comments Initial Comments: General: The patient is awake and alert, he is in a lot of distress Skin: Skin is warm and dry and no rashes or lesions are noted. Eye: Pupils are equal, round and reactive to light, extra-ocular movements are intact; there is normal conjunctiva bilaterally. Ears, nose, mouth and throat: There are moist mucous membranes and no oral lesions. Neck: The neck is supple, there is no tenderness or JVD. Cardiovascular: There is a regular rate and rhythm. No murmur, rub or gallop is appreciated. Respiratory: To auscultation bilateral, no wheezing no rhonchi no distress respiratory colón noticed Gastrointestinal: Under in epigastric area Back: There is no tenderness to palpation in the midline. There is no obvious deformity. Musculoskeletal: Normal ROM, no tenderness, There is no pedal edema. There is no calf tenderness or swelling. No cords were appreciated. Neurological: CN II-XII intact, Cranial nerves III through XII are intact. There are no obvious motor or sensory deficits. Coordination appears grossly intact. Speech is normal. Psychiatric: Cooperative, appropriate mood & affect, normal judgment. Limitations: no limitations Course Vital Signs 12/10/16 12/10/16 05:47 07:53 Temperature 98.1 F 98.1 F Pulse Rate 87 82 Respiratory 18 18 Rate Blood Pressure 226/119 160/82 O2 Sat by Pulse 95 95 Oximetry At 750 feels lot better, his labs are reviewed and discussed with the patient, imaging and ruled out any bowel obstruction and he is feeling better he be discharged home to follow up with Dr. Quick Medical Decision Making - Lab Data Result diagrams: 12/10/16 06:40 12/10/16 06:40 Lab Results 12/10/16 12/10/16 12/10/16 Range/Units 06:40 06:40 06:40 WBC 7.5 (3.8-10.6) k/uL RBC 3.65 L (4.30-5.90) m/uL Hgb 11.0 L (13.0-17.5) gm/dL Hct 34.9 L (39.0-53.0) % MCV 95.6 (80.0-100.0) fL MCH 30.1 (25.0-35.0) pg MCHC 31.5 (31.0-37.0) g/dL RDW 16.0 H (11.5-15.5) % Plt Count 186 (150-450) k/uL Neutrophils % 75 % Lymphocytes % 13 % Monocytes % 5 % Eosinophils % 4 % Basophils % 1 % Neutrophils # 5.7 (1.3-7.7) k/uL Lymphocytes # 1.0 (1.0-4.8) k/uL Monocytes # 0.4 (0-1.0) k/uL Eosinophils # 0.3 (0-0.7) k/uL Basophils # 0.1 (0-0.2) k/uL Anisocytosis Slight Sodium 143 (137-145) mmol/L Potassium 5.2 H (3.5-5.1) mmol/L Chloride 103 (98-107) mmol/L Carbon Dioxide 22 (22-30) mmol/L Anion Gap 18 mmol/L BUN 47 H (9-20) mg/dL Creatinine 9.50 H* (0.66-1.25) mg/dL Est GFR (MDRD) Af Amer 8 (>60 ml/min/1.73 sqM) Est GFR (MDRD) Non-Af 6 (>60 ml/min/1.73 sqM) Glucose 141 H (74-99) mg/dL Plasma Lactic Acid Ronaldo 1.0 (0.7-2.0) mmol/L Calcium 9.1 (8.4-10.2) mg/dL Total Bilirubin 0.5 (0.2-1.3) mg/dL AST 23 (17-59) U/L ALT 44 (21-72) U/L Alkaline Phosphatase 121 (38-126) U/L Troponin I (0.000-0.034) ng/mL Total Protein 7.5 (6.3-8.2) g/dL Albumin 4.2 (3.5-5.0) g/dL Amylase 110 (30-110) U/L Lipase 102 (23-300) U/L 12/10/16 Range/Units 06:40 WBC (3.8-10.6) k/uL RBC (4.30-5.90) m/uL Hgb (13.0-17.5) gm/dL Hct (39.0-53.0) % MCV (80.0-100.0) fL MCH (25.0-35.0) pg MCHC (31.0-37.0) g/dL RDW (11.5-15.5) % Plt Count (150-450) k/uL Neutrophils % % Lymphocytes % % Monocytes % % Eosinophils % % Basophils % % Neutrophils # (1.3-7.7) k/uL Lymphocytes # (1.0-4.8) k/uL Monocytes # (0-1.0) k/uL Eosinophils # (0-0.7) k/uL Basophils # (0-0.2) k/uL Anisocytosis Sodium (137-145) mmol/L Potassium (3.5-5.1) mmol/L Chloride (98-107) mmol/L Carbon Dioxide (22-30) mmol/L Anion Gap mmol/L BUN (9-20) mg/dL Creatinine (0.66-1.25) mg/dL Est GFR (MDRD) Af Amer (>60 ml/min/1.73 sqM) Est GFR (MDRD) Non-Af (>60 ml/min/1.73 sqM) Glucose (74-99) mg/dL Plasma Lactic Acid Ronaldo (0.7-2.0) mmol/L Calcium (8.4-10.2) mg/dL Total Bilirubin (0.2-1.3) mg/dL AST (17-59) U/L ALT (21-72) U/L Alkaline Phosphatase (38-126) U/L Troponin I 0.026 (0.000-0.034) ng/mL Total Protein (6.3-8.2) g/dL Albumin (3.5-5.0) g/dL Amylase (30-110) U/L Lipase (23-300) U/L Disposition Clinical Impression: Abdominal pain, Gastroparesis Disposition: HOME SELF-CARE Condition: Good Instructions: Abdominal Pain (ED) Referrals: Kala Onofre MD [Primary Care Provider] - 1-2 days
[2016-12-10] MEDS ORDERED: HYDROmorphone 1 MG/ML 1 ML SYRINGE IM STA (07:55)
== END 2016-12-10 08:06 | disposition home or self-care (01) ==
LOC: EC 05:38
DX: K31.84 Gastroparesis (principal); E11.43 Type 2 diabetes mellitus with diabetic autonomic (poly)neuropathy; E11.22 Type 2 diabetes mellitus with diabetic chronic kidney disease; N18.4 Chronic kidney disease, stage 4 (severe); I13.0 Hypertensive heart and chronic kidney disease with heart failure and stage 1 through stage 4 chronic kidney disease, or unspecified chronic kidney disease; K21.9 Gastro-esophageal reflux disease without esophagitis; Z87.891 Personal history of nicotine dependence; Z79.4 Long term (current) use of insulin; Z79.899 Other long term (current) drug therapy; Z88.5 Allergy status to narcotic agent; Z88.8 Allergy status to other drugs, medicaments and biological substances; Z86.79 Personal history of other diseases of the circulatory system; Z90.49 Acquired absence of other specified parts of digestive tract; Z99.2 Dependence on renal dialysis
CPT/HCPCS: 36415; 80053; 82150; 83605; 83690; 84484; 85025; 71020; 74000; 99284; 96374; 96375; 96361; 96372; J2405; J1170 ×2

== ENCOUNTER 2016-12-28 10:36 | Emergency (ER) | payer MEDICARE, OTHER ==
[2016-12-28 10:41] VITALS: TEMP 97.3
[2016-12-28] MEDS ORDERED: FAMOTIDINE 20 MG/2 ML VIAL IV STA (11:00)
[2016-12-28] MEDS ORDERED: LORazepam 2 MG/ML INJ IV STA (11:00)
[2016-12-28] MEDS ORDERED: SODIUM CHLORIDE 0.9% 1,000 ML IV STA (11:00)
[2016-12-28] MEDS ORDERED: cloNIDine HCL 0.2 MG TAB PO STA (11:13)
--- NOTE | 2016-12-28 11:13 | ED ---
General Adult HPI - General Chief complaint: Abdominal Pain Stated complaint: Abd Pain Time Seen by Provider: 12/28/16 10:43 Source: patient, EMS, RN notes reviewed, old records reviewed Mode of arrival: EMS Limitations: no limitations - History of Present Illness Initial comments: Patient 41-year-old male who presents emergency room today by EMS, the chief complaint of increased abdominal pain with nausea vomiting. Patient does admit to a history of gastroparesis. He does admit that his symptoms started 2 days ago after his dialysis. Patient does admit that his had multiple episodes of nausea vomiting this morning and called EMS. Patient denies any signs of blood in the emesis. Patient states his symptoms are consistent with chronic abdominal pain and nausea vomiting that is had in the past. He denies any complaints or symptoms today. Patient denies any recent fever, chills, shortness of breath, chest pain, back pain, numbness or tingling, dysuria or hematuria, constipation or diarrhea, headaches or visual changes, or any other complaints. - Related Data Home Medications Medication Instructions Recorded Confirmed LORazepam [Ativan] 0.5 mg PO DAILY PRN 06/06/14 12/28/16 amLODIPine BESYLATE [Amlodipine 10 mg PO QAM 06/24/15 12/28/16 Besylate] Folic Acid-Vit B Complex-Vit C 1 cap PO DAILY 01/25/16 12/28/16 [Nephrocaps] Cyclobenzaprine [Flexeril] 10 mg PO TID PRN 02/20/16 12/28/16 Omeprazole [PriLOSEC] 20 mg PO DAILY 02/20/16 12/28/16 HYDROmorphone [Dilaudid] 2 mg PO DAILY PRN 03/28/16 12/28/16 hydrALAZINE HCL [Apresoline] 100 mg PO TID 03/28/16 12/28/16 Lisinopril 5 mg PO DAILY 06/13/16 12/28/16 Famotidine [Pepcid] 20 mg PO BID PRN 07/13/16 12/28/16 hydrOXYzine HCL 10 mg PO TID PRN 11/15/16 12/28/16 chlorproMAZINE [Thorazine] 25 mg PO BID 12/28/16 12/28/16 Previous Rx's Medication Instructions Recorded cloNIDine HCL [Catapres] 0.2 mg PO TID tab 02/20/16 Insulin Glargine [Lantus] 12 unit SQ HS #0 12/05/16 Ondansetron Odt [Zofran ODT] 4 mg PO Q8HR PRN #12 tab 12/05/16 Allergies Allergy/AdvReac Type Severity Reaction Status Date / Time codeine Allergy Rash/Hives Verified 12/28/16 11:01 metoclopramide HCl AdvReac Muscle Verified 12/28/16 11:01 [From Reglan] Spasms morphine AdvReac Increases Verified 12/28/16 11:01 Pain Review of Systems ROS Statement: Those systems with pertinent positive or pertinent negative responses have been documented in the HPI. ROS Other: All systems not noted in ROS Statement are negative. Past Medical History Past Medical History: Chest Pain / Angina, Heart Failure, CVA/TIA, Diabetes Mellitus, Dialysis, Eye Disorder, GERD/Reflux, Hypertension, Renal Disease, Seizure Disorder, Skin Disorder, Thyroid Disorder Additional Past Medical History / Comment(s): scattered skin sores melita arms, Chronic renal failure stage IV, hemodialysis M/W/FR-4 hr, past peritoneal dialysis with peritonitis, gastroparesis, cyclic vomiting, chronic abdominal pain, pancreatitis, IDDM type I brittle, heart murmur, diabetic retinopathy bilaterally, retinal detachment with surgery, hypothyroid, hiatal hernia, sinusitis, bronchitis, chronic back pain, anemia, last seizure in 2015. History of Any Multi-Drug Resistant Organisms: None Reported Past Surgical History: Cholecystectomy, Heart Catheterization, Hernia Repair Additional Past Surgical History / Comment(s): bilateral retinal reattachment sx , hemodialysis catheter in Feb 2013- lt arm fistual, L inguinal hernia, 2009 cardiac cath. Past Anesthesia/Blood Transfusion Reactions: No Reported Reaction Additional Past Anesthesia/Blood Transfusion Reaction / Comment(s): mom states "swelling to uvula with gallbladder surgery went into resp arrest due to blocked airway." Past Psychological History: Anxiety, Depression Smoking Status: Former smoker Past Alcohol Use History: None Reported Past Drug Use History: None Reported - Past Family History Father History Unknown: Yes Mother History Unknown: Yes Family Medical History: COPD Additional Family Medical History / Comment(s): Mother has never smoked. Mother' s brother had diabetes and multiple sclerosis. Brother(s) Family Medical History: Diabetes Mellitus Additional Family Medical History / Comment(s): multiple sclerosis General Exam - General Exam Comments Initial Comments: General: The patient is awake and alert, in no distress, and does not appear acutely ill. Eye: Pupils are equal, round and reactive to light, extra-ocular movements are intact. No nystagmus. There is normal conjunctiva bilaterally. No signs of icterus. Ears, nose, mouth and throat: There are moist mucous membranes and no oral lesions. Neck: The neck is supple, there is no tenderness or JVD. Cardiovascular: There is a regular rate and rhythm. No murmur, rub or gallop is appreciated. Respiratory: Lungs are clear to auscultation, respirations are non-labored, breath sounds are equal. No wheezes, stridor, rales, or rhonchi. Gastrointestinal: Normal appearance. Normal bowel sounds. Soft on palpation. Patient does have tenderness epigastric and upper quadrant without guarding. No significant tenderness. No CVA tenderness Musculoskeletal: Normal ROM, no tenderness. Strength 5/5. Sensation intact. Pulses equal bilaterally 2+. Neurological: A&O x 3. CN II-XII intact, There are no obvious motor or sensory deficits. Coordination appears grossly intact. Speech is normal. Skin: Skin is warm and dry and no rashes or lesions are noted. Psychiatric: Cooperative, appropriate mood & affect, normal judgment. Limitations: no limitations Course Vital Signs 12/28/16 12/28/16 10:36 12:23 Temperature 97.3 F L Pulse Rate 81 81 Respiratory 22 Rate Blood Pressure 193/101 188/96 O2 Sat by Pulse 95 95 Oximetry Medical Decision Making - Medical Decision Making Patient reexamined at this time shows no signs of distress she is resting comfortably. Does admit that his symptoms are much improved here in the ER. Patient's being creatinine elevated. Patient is dialysis patient. We did call dialysis center and will be able to dialyze him tomorrow at 6 AM. Patient states this will work for him as well. At this time is comfortable will be discharged home advised return for any other concerns. - Lab Data Result diagrams: 12/28/16 11:20 12/28/16 11:20 Lab Results 12/28/16 12/28/16 Range/Units 11:20 11:20 WBC 6.8 (3.8-10.6) k/uL RBC 3.44 L (4.30-5.90) m/uL Hgb 10.1 L (13.0-17.5) gm/dL Hct 32.6 L (39.0-53.0) % MCV 94.6 (80.0-100.0) fL MCH 29.4 (25.0-35.0) pg MCHC 31.1 (31.0-37.0) g/dL RDW 16.7 H (11.5-15.5) % Plt Count 159 (150-450) k/uL Neutrophils % 71 % Lymphocytes % 12 % Monocytes % 10 % Eosinophils % 5 % Basophils % 1 % Neutrophils # 4.8 (1.3-7.7) k/uL Lymphocytes # 0.8 L (1.0-4.8) k/uL Monocytes # 0.7 (0-1.0) k/uL Eosinophils # 0.3 (0-0.7) k/uL Basophils # 0.0 (0-0.2) k/uL Hypochromasia Slight Anisocytosis Slight Sodium 141 (137-145) mmol/L Potassium 5.4 H (3.5-5.1) mmol/L Chloride 94 L (98-107) mmol/L Carbon Dioxide 30 (22-30) mmol/L Anion Gap 17 mmol/L BUN 46 H (9-20) mg/dL Creatinine 10.10 H* (0.66-1.25) mg/dL Est GFR (MDRD) Af Amer 7 (>60 ml/min/1.73 sqM) Est GFR (MDRD) Non-Af 6 (>60 ml/min/1.73 sqM) Glucose 206 H (74-99) mg/dL Calcium 8.7 (8.4-10.2) mg/dL Total Bilirubin 0.9 (0.2-1.3) mg/dL AST 24 (17-59) U/L ALT 29 (21-72) U/L Alkaline Phosphatase 99 (38-126) U/L Total Protein 7.1 (6.3-8.2) g/dL Albumin 4.0 (3.5-5.0) g/dL Amylase 46 (30-110) U/L Lipase 121 (23-300) U/L Acetone, Qual Negative (Negative) Disposition Clinical Impression: Nausea & vomiting Disposition: HOME SELF-CARE Condition: Good Instructions: Acute Nausea and Vomiting (ED) Additional Instructions: Please follow-up and have dialysis tomorrow 6 AM as discussed here in emergency room. Please call and confirm appointment. Please return to emergency room if any symptoms increase worsen or for any other concerns. Referrals: Kala Onofre MD [Primary Care Provider] - 1-2 days Time of Disposition: 12:55
[2016-12-28] MEDS ORDERED: PROMETHAZINE INJ 25 MG in SODIUM CHLORIDE 0.9% 50 ML IVPB ONE (11:15)
[2016-12-28 11:53] LABS: ALT 29 U/L (21-72); AST 24 U/L (17-59); Alkaline Phosphatase 99 U/L (38-126); Amylase 46 U/L (30-110); Anion Gap 17 mmol/L; Blood Urea Nitrogen 46 mg/dL (9-20); Calcium 8.7 mg/dL (8.4-10.2); Carbon Dioxide 30 mmol/L (22-30); Chloride 94 mmol/L (98-107); Glucose 206 mg/dL (74-99); Potassium 5.4 mmol/L (3.5-5.1); Sodium 141 mmol/L (137-145); Total Bilirubin 0.9 mg/dL (0.2-1.3); Total Protein 7.1 g/dL (6.3-8.2)
[2016-12-28 12:00] LABS: Non-African American GFR(MDRD) 6 (>60 ml/min/1.73 sqM)
[2016-12-28 12:19] LABS: Anisocytosis Slight; Basophils % (A) 1 %; CH 30.1; Eosinophils # (A) 0.3 k/uL (0-0.7); Eosinophils % (A) 5 %; HCT 32.6 % (39.0-53.0); HGB 10.1 gm/dL (13.0-17.5); Hypochromasia Slight; Luc # (Auto) 0.12; Luc % (Auto) 2; Lymphocytes # (A) 0.8 k/uL (1.0-4.8); Lymphocytes % (A) 12 %; MCH 29.4 pg (25.0-35.0); MCHC 31.1 g/dL (31.0-37.0); MCV 94.6 fL (80.0-100.0); Mean Platelet Volume 8.2; Monocytes # (A) 0.7 k/uL (0-1.0); Monocytes % (A) 10 %; Neutrophils # (A) 4.8 k/uL (1.3-7.7); Neutrophils % (A) 71 %; RBC 3.44 m/uL (4.30-5.90); RDW 16.7 % (11.5-15.5); WBC 6.8 k/uL (3.8-10.6); WBC (Perox) 7.13
[2016-12-28] MEDS ORDERED: ONDANSETRON 4 MG/2 ML VIAL IVP STA (12:54)
[2016-12-28 13:26] VITALS: BP 168/89; PULSE 88; RESP 18
== END 2016-12-28 13:28 | disposition home or self-care (01) ==
LOC: EC 10:36
DX: R11.2 Nausea with vomiting, unspecified (principal); R10.13 Epigastric pain; I13.0 Hypertensive heart and chronic kidney disease with heart failure and stage 1 through stage 4 chronic kidney disease, or unspecified chronic kidney disease; N18.4 Chronic kidney disease, stage 4 (severe); I50.9 Heart failure, unspecified; K21.9 Gastro-esophageal reflux disease without esophagitis; E07.9 Disorder of thyroid, unspecified; E03.9 Hypothyroidism, unspecified; D64.9 Anemia, unspecified; Z86.73 Personal history of transient ischemic attack (TIA), and cerebral infarction without residual deficits; Z90.49 Acquired absence of other specified parts of digestive tract; Z95.5 Presence of coronary angioplasty implant and graft; Z99.2 Dependence on renal dialysis; Z88.5 Allergy status to narcotic agent; Z88.8 Allergy status to other drugs, medicaments and biological substances; Z79.899 Other long term (current) drug therapy; Z87.891 Personal history of nicotine dependence
CPT/HCPCS: 99284; 96365; 96375 ×3; 36415; 80053; 82150; 82009; 83690; 85025; J2060; J2550; J2405

== ENCOUNTER 2017-01-04 09:01 | Emergency (ER) | payer MEDICARE, OTHER ==
[2017-01-04] MEDS ORDERED: FAMOTIDINE 20 MG/2 ML VIAL IV STA (09:19)
[2017-01-04] MEDS ORDERED: LORazepam 2 MG/ML INJ IV STA ×2 (09:19→09:20)
[2017-01-04] MEDS ORDERED: HYDROmorphone 1 MG/ML 1 ML SYRINGE IVP STA (09:19)
[2017-01-04] MEDS ORDERED: cloNIDine HCL 0.2 MG TAB PO STA (09:19)
[2017-01-04] MEDS ORDERED: ONDANSETRON 4 MG/2 ML VIAL IVP STA (09:19)
[2017-01-04 09:37] LABS: Anisocytosis Slight; Basophils # (A) 0.1 k/uL (0-0.2); Basophils % (A) 1 %; CH 29.9; CHCM 32.4; Eosinophils # (A) 0.3 k/uL (0-0.7); Eosinophils % (A) 4 %; HCT 36.6 % (39.0-53.0); HDW 2.69; HGB 11.6 gm/dL (13.0-17.5); Luc # (Auto) 0.24; Luc % (Auto) 3; Lymphocytes # (A) 0.8 k/uL (1.0-4.8); Lymphocytes % (A) 9 %; MCH 29.6 pg (25.0-35.0); MCHC 31.8 g/dL (31.0-37.0); MCV 92.9 fL (80.0-100.0); Monocytes # (A) 0.4 k/uL (0-1.0); Monocytes % (A) 5 %; Neutrophils # (A) 7.5 k/uL (1.3-7.7); Neutrophils % (A) 80 %; RBC 3.94 m/uL (4.30-5.90); RDW 16.1 % (11.5-15.5); WBC 9.4 k/uL (3.8-10.6); WBC (Perox) 9.18
[2017-01-04 09:42] LABS: ALT 35 U/L (21-72); AST 26 U/L (17-59); Alkaline Phosphatase 121 U/L (38-126); Amylase 67 U/L (30-110); Anion Gap 19 mmol/L; Blood Urea Nitrogen 60 mg/dL (9-20); Calcium 9.6 mg/dL (8.4-10.2); Carbon Dioxide 23 mmol/L (22-30); Chloride 95 mmol/L (98-107); Glucose 293 mg/dL (74-99); Potassium 4.6 mmol/L (3.5-5.1); Sodium 137 mmol/L (137-145); Total Bilirubin 0.6 mg/dL (0.2-1.3); Total Protein 7.5 g/dL (6.3-8.2)
[2017-01-04 09:53] LABS: Non-African American GFR(MDRD) 6 (>60 ml/min/1.73 sqM)
[2017-01-04] MEDS ORDERED: PROCHLORPERAZINE 10 MG TAB PO STA (10:23)
--- NOTE | 2017-01-04 10:25 | ED ---
Abdominal Pain HPI - General Chief Complaint: Abdominal Pain Stated Complaint: Abd Pain Time Seen by Provider: 01/04/17 09:07 Source: patient, EMS, RN notes reviewed Mode of arrival: EMS Limitations: no limitations - History of Present Illness Initial Comments: 41-year-old male presents emergency department via EMS chief complaint nausea vomiting abdominal pain. Patient has chronic abdominal pain. Patient states she is on dialysis. He did go to dialysis on Saturday and states that he started getting sick after. Patient states that she normally happens stone. Patient denies any fever, chills, headache, dizziness, chest pain or shortness breath. Patient states that his been unable to keep his medications down. Patient's blood pressure is elevated as normal because he has not been taking his medications. - Related Data Home Medications Medication Instructions Recorded Confirmed LORazepam [Ativan] 0.5 mg PO DAILY PRN 06/06/14 01/04/17 amLODIPine BESYLATE [Amlodipine 10 mg PO QAM 06/24/15 01/04/17 Besylate] Folic Acid-Vit B Complex-Vit C 1 cap PO DAILY 01/25/16 01/04/17 [Nephrocaps] Cyclobenzaprine [Flexeril] 10 mg PO TID PRN 02/20/16 01/04/17 Omeprazole [PriLOSEC] 20 mg PO DAILY 02/20/16 01/04/17 HYDROmorphone [Dilaudid] 2 mg PO DAILY PRN 03/28/16 01/04/17 hydrALAZINE HCL [Apresoline] 100 mg PO TID 03/28/16 01/04/17 Lisinopril 5 mg PO DAILY 06/13/16 01/04/17 Famotidine [Pepcid] 20 mg PO BID PRN 07/13/16 01/04/17 hydrOXYzine HCL 10 mg PO TID PRN 11/15/16 01/04/17 chlorproMAZINE [Thorazine] 25 mg PO BID 12/28/16 01/04/17 Previous Rx's Medication Instructions Recorded cloNIDine HCL [Catapres] 0.2 mg PO TID tab 02/20/16 Insulin Glargine [Lantus] 12 unit SQ HS #0 12/05/16 Ondansetron Odt [Zofran ODT] 4 mg PO Q8HR PRN #12 tab 12/05/16 Allergies Allergy/AdvReac Type Severity Reaction Status Date / Time codeine Allergy Rash/Hives Verified 01/04/17 09:12 metoclopramide HCl AdvReac Muscle Verified 01/04/17 09:12 [From Reglan] Spasms morphine AdvReac Increases Verified 01/04/17 09:12 Pain Review of Systems ROS Statement: Those systems with pertinent positive or pertinent negative responses have been documented in the HPI. ROS Other: All systems not noted in ROS Statement are negative. Past Medical History Past Medical History: Chest Pain / Angina, Heart Failure, CVA/TIA, Diabetes Mellitus, Dialysis, Eye Disorder, GERD/Reflux, Hypertension, Renal Disease, Seizure Disorder, Skin Disorder, Thyroid Disorder Additional Past Medical History / Comment(s): scattered skin sores melita arms, Chronic renal failure stage IV, hemodialysis M/W/FR-4 hr, past peritoneal dialysis with peritonitis, gastroparesis, cyclic vomiting, chronic abdominal pain, pancreatitis, IDDM type I brittle, heart murmur, diabetic retinopathy bilaterally, retinal detachment with surgery, hypothyroid, hiatal hernia, sinusitis, bronchitis, chronic back pain, anemia, last seizure in 2015. History of Any Multi-Drug Resistant Organisms: None Reported Past Surgical History: Cholecystectomy, Heart Catheterization, Hernia Repair Additional Past Surgical History / Comment(s): bilateral retinal reattachment sx , hemodialysis catheter in Feb 2013- lt arm fistual, L inguinal hernia, 2009 cardiac cath. Past Anesthesia/Blood Transfusion Reactions: No Reported Reaction Additional Past Anesthesia/Blood Transfusion Reaction / Comment(s): mom states "swelling to uvula with gallbladder surgery went into resp arrest due to blocked airway." Past Psychological History: Anxiety, Depression Smoking Status: Former smoker Past Alcohol Use History: None Reported Past Drug Use History: None Reported - Past Family History Father History Unknown: Yes Mother History Unknown: Yes Family Medical History: COPD Additional Family Medical History / Comment(s): Mother has never smoked. Mother' s brother had diabetes and multiple sclerosis. Brother(s) Family Medical History: Diabetes Mellitus Additional Family Medical History / Comment(s): multiple sclerosis General Exam Limitations: no limitations General appearance: alert, in no apparent distress Respiratory exam: Present: normal lung sounds bilaterally. Absent: respiratory distress, wheezes, rales, rhonchi, stridor Cardiovascular Exam: Present: regular rate, normal rhythm, normal heart sounds. Absent: systolic murmur, diastolic murmur, rubs, gallop, clicks GI/Abdominal exam: Present: soft, tenderness (Diffuse [id number]), normal bowel sounds. Absent: distended, guarding, rebound, rigid Course Vital Signs 01/04/17 01/04/17 09:04 09:56 Temperature 98.0 F Pulse Rate 84 85 Respiratory 18 17 Rate Blood Pressure 218/107 156/87 O2 Sat by Pulse 95 94 L Oximetry Medical Decision Making - Medical Decision Making 41-year-old male presented for nausea vomiting. Patient states she does feel improved at this time. He states he has slight nausea and which she'll be given Compazine prior to discharge. He states he does feel good to go home at this time he states he'll follow up for dialysis and return if symptoms worsen. - Lab Data Result diagrams: 01/04/17 09:15 01/04/17 09:15 Lab Results 01/04/17 01/04/17 Range/Units 09:15 09:15 WBC 9.4 (3.8-10.6) k/uL RBC 3.94 L (4.30-5.90) m/uL Hgb 11.6 L (13.0-17.5) gm/dL Hct 36.6 L (39.0-53.0) % MCV 92.9 (80.0-100.0) fL MCH 29.6 (25.0-35.0) pg MCHC 31.8 (31.0-37.0) g/dL RDW 16.1 H (11.5-15.5) % Plt Count 253 (150-450) k/uL Neutrophils % 80 % Lymphocytes % 9 % Monocytes % 5 % Eosinophils % 4 % Basophils % 1 % Neutrophils # 7.5 (1.3-7.7) k/uL Lymphocytes # 0.8 L (1.0-4.8) k/uL Monocytes # 0.4 (0-1.0) k/uL Eosinophils # 0.3 (0-0.7) k/uL Basophils # 0.1 (0-0.2) k/uL Anisocytosis Slight Sodium 137 (137-145) mmol/L Potassium 4.6 (3.5-5.1) mmol/L Chloride 95 L (98-107) mmol/L Carbon Dioxide 23 (22-30) mmol/L Anion Gap 19 mmol/L BUN 60 H (9-20) mg/dL Creatinine 9.50 H* (0.66-1.25) mg/dL Est GFR (MDRD) Af Amer 8 (>60 ml/min/1.73 sqM) Est GFR (MDRD) Non-Af 6 (>60 ml/min/1.73 sqM) Glucose 293 H (74-99) mg/dL Calcium 9.6 (8.4-10.2) mg/dL Total Bilirubin 0.6 (0.2-1.3) mg/dL AST 26 (17-59) U/L ALT 35 (21-72) U/L Alkaline Phosphatase 121 (38-126) U/L Total Protein 7.5 (6.3-8.2) g/dL Albumin 4.3 (3.5-5.0) g/dL Amylase 67 (30-110) U/L Lipase 82 (23-300) U/L Acetone, Qual Negative (Negative) Disposition Clinical Impression: Nausea and vomiting, Abdominal pain, Chronic renal failure syndrome Disposition: HOME SELF-CARE Condition: Stable Instructions: Abdominal Pain (ED) Additional Instructions: Please return to the Emergency Department if symptoms worsen or any other concerns. Referrals: Kala Onofre MD [Primary Care Provider] - 1-2 days Time of Disposition: 10:25
[2017-01-04 10:58] VITALS: BP 182/91; PULSE 81; RESP 17; TEMP 98.1
== END 2017-01-04 10:57 | disposition home or self-care (01) ==
LOC: EC 09:01
DX: N18.4 Chronic kidney disease, stage 4 (severe) (principal); I13.0 Hypertensive heart and chronic kidney disease with heart failure and stage 1 through stage 4 chronic kidney disease, or unspecified chronic kidney disease; I50.9 Heart failure, unspecified; K21.9 Gastro-esophageal reflux disease without esophagitis; D64.9 Anemia, unspecified; F32.9 Major depressive disorder, single episode, unspecified; F41.9 Anxiety disorder, unspecified; Z87.891 Personal history of nicotine dependence; Z79.899 Other long term (current) drug therapy; Z88.5 Allergy status to narcotic agent; Z88.8 Allergy status to other drugs, medicaments and biological substances; Z86.79 Personal history of other diseases of the circulatory system; Z90.49 Acquired absence of other specified parts of digestive tract; Z99.2 Dependence on renal dialysis; Z53.8 Procedure and treatment not carried out for other reasons
CPT/HCPCS: 36415; 80053; 82150; 82009; 83690; 85025; 99284; 96374; 96375 ×3; S0183; J2060; J2405; J1170

== ENCOUNTER 2017-01-07 08:51 | Emergency (ER) | payer MEDICARE, OTHER ==
[2017-01-07] MEDS ORDERED: FAMOTIDINE 20 MG/2 ML VIAL IV STA (09:41)
[2017-01-07] MEDS ORDERED: LORazepam 2 MG/ML INJ IV STA (09:41)
[2017-01-07] MEDS ORDERED: PROMETHAZINE INJ 25 MG in SODIUM CHLORIDE 0.9% 50 ML IVPB STA (09:41)
[2017-01-07] MEDS ORDERED: SODIUM CHLORIDE 0.9% 1,000 ML IV STA (09:41)
--- NOTE | 2017-01-07 09:51 | ED ---
General Adult HPI - General Chief complaint: Abdominal Pain Stated complaint: VOMITING,ABDOMINAL PAIN Time Seen by Provider: 01/07/17 09:40 Source: patient, family, RN notes reviewed, old records reviewed Mode of arrival: ambulatory Limitations: no limitations - History of Present Illness Initial comments: Patient 41-year-old male is well-known to the emergency room presenting today with a chief complaint of lower abdominal pain. Patient does have significant past medical history for dialysis and for paresis. Patient does admit to abdominal pain in the epigastric area. States is consistent with abdominal pain and 7 past. He does admit to symptoms of nausea vomiting haven't documented medications. He denies any new symptoms today. States this is consistent with pain that is had in the past. He does admit that he was recently at [facility] yesterday and here at [facility] 2 days prior to that. Patient denies any recent fever, chills, shortness of breath, chest pain, back pain, numbness or tingling, dysuria or hematuria, constipation or diarrhea, headaches or visual changes, or any other complaints. - Related Data Home Medications Medication Instructions Recorded Confirmed LORazepam [Ativan] 0.5 mg PO DAILY PRN 06/06/14 01/07/17 amLODIPine BESYLATE [Amlodipine 10 mg PO QAM 06/24/15 01/07/17 Besylate] Folic Acid-Vit B Complex-Vit C 1 cap PO DAILY 01/25/16 01/07/17 [Nephrocaps] Cyclobenzaprine [Flexeril] 10 mg PO TID PRN 02/20/16 01/07/17 Omeprazole [PriLOSEC] 20 mg PO DAILY 02/20/16 01/07/17 HYDROmorphone [Dilaudid] 2 mg PO DAILY PRN 03/28/16 01/07/17 hydrALAZINE HCL [Apresoline] 100 mg PO TID 03/28/16 01/07/17 Lisinopril 5 mg PO DAILY 06/13/16 01/07/17 Famotidine [Pepcid] 20 mg PO BID PRN 07/13/16 01/07/17 hydrOXYzine HCL 10 mg PO TID PRN 11/15/16 01/07/17 chlorproMAZINE [Thorazine] 25 mg PO BID 12/28/16 01/07/17 Previous Rx's Medication Instructions Recorded cloNIDine HCL [Catapres] 0.2 mg PO TID tab 02/20/16 Insulin Glargine [Lantus] 12 unit SQ HS #0 12/05/16 Ondansetron Odt [Zofran ODT] 4 mg PO Q8HR PRN #12 tab 12/05/16 Allergies Allergy/AdvReac Type Severity Reaction Status Date / Time codeine Allergy Rash/Hives Verified 01/07/17 09:22 metoclopramide HCl AdvReac Muscle Verified 01/07/17 09:22 [From Reglan] Spasms morphine AdvReac Increases Verified 01/07/17 09:22 Pain Review of Systems ROS Statement: Those systems with pertinent positive or pertinent negative responses have been documented in the HPI. ROS Other: All systems not noted in ROS Statement are negative. Past Medical History Past Medical History: Chest Pain / Angina, Heart Failure, CVA/TIA, Diabetes Mellitus, Dialysis, Eye Disorder, GERD/Reflux, Hypertension, Renal Disease, Seizure Disorder, Skin Disorder, Thyroid Disorder Additional Past Medical History / Comment(s): scattered skin sores melita arms, Chronic renal failure stage IV, hemodialysis M/W/FR-4 hr, past peritoneal dialysis with peritonitis, gastroparesis, cyclic vomiting, chronic abdominal pain, pancreatitis, IDDM type I brittle, heart murmur, diabetic retinopathy bilaterally, retinal detachment with surgery, hypothyroid, hiatal hernia, sinusitis, bronchitis, chronic back pain, anemia, last seizure in 2015. History of Any Multi-Drug Resistant Organisms: None Reported Past Surgical History: Cholecystectomy, Heart Catheterization, Hernia Repair Additional Past Surgical History / Comment(s): bilateral retinal reattachment sx , hemodialysis catheter in Feb 2013- lt arm fistual, L inguinal hernia, 2009 cardiac cath. Past Anesthesia/Blood Transfusion Reactions: No Reported Reaction Additional Past Anesthesia/Blood Transfusion Reaction / Comment(s): mom states "swelling to uvula with gallbladder surgery went into resp arrest due to blocked airway." Past Psychological History: Anxiety, Depression Smoking Status: Former smoker Past Alcohol Use History: None Reported Past Drug Use History: None Reported - Past Family History Father History Unknown: Yes Mother History Unknown: Yes Family Medical History: COPD Additional Family Medical History / Comment(s): Mother has never smoked. Mother' s brother had diabetes and multiple sclerosis. Brother(s) Family Medical History: Diabetes Mellitus Additional Family Medical History / Comment(s): multiple sclerosis General Exam - General Exam Comments Initial Comments: General: The patient is awake and alert, in mild distress. Eye: Pupils are equal, round and reactive to light, extra-ocular movements are intact. No nystagmus. There is normal conjunctiva bilaterally. No signs of icterus. Ears, nose, mouth and throat: There are moist mucous membranes and no oral lesions. Neck: The neck is supple, there is no tenderness or JVD. Cardiovascular: There is a regular rate and rhythm. No murmur, rub or gallop is appreciated. Respiratory: Lungs are clear to auscultation, respirations are non-labored, breath sounds are equal. No wheezes, stridor, rales, or rhonchi. Gastrointestinal: Soft, non-distended. Tender to palpation in the epigastric. There is no rebound or guarding present. Bowel sounds are unremarkable. Musculoskeletal: Normal ROM, no tenderness. Strength 5/5. Sensation intact. Pulses equal bilaterally 2+. Neurological: A&O x 3. CN II-XII intact, There are no obvious motor or sensory deficits. Coordination appears grossly intact. Speech is normal. Skin: Skin is warm and dry and no rashes or lesions are noted. Psychiatric: Cooperative, appropriate mood & affect, normal judgment. Limitations: no limitations Course Vital Signs 01/07/17 01/07/17 09:04 11:05 Temperature 98.0 F Pulse Rate 86 79 Respiratory 20 14 Rate Blood Pressure 214/117 182/97 O2 Sat by Pulse 96 94 L Oximetry Medical Decision Making - Medical Decision Making Patient reexamined at this time shows no signs of distress. Resting comfortably. States is feeling much better. His abdomen soft nontender. Patient will be discharged home. He is scheduled to have his dialysis tomorrow. Advised follow-up family doctor. Advised return if any symptoms increase worsen. - Lab Data Result diagrams: 01/07/17 10:24 01/07/17 10:24 Lab Results 01/07/17 01/07/17 Range/Units 10:24 10:24 WBC 8.7 (3.8-10.6) k/uL RBC 3.95 L (4.30-5.90) m/uL Hgb 11.7 L (13.0-17.5) gm/dL Hct 37.1 L (39.0-53.0) % MCV 94.0 (80.0-100.0) fL MCH 29.5 (25.0-35.0) pg MCHC 31.4 (31.0-37.0) g/dL RDW 17.5 H (11.5-15.5) % Plt Count 270 (150-450) k/uL Neutrophils % 79 % Lymphocytes % 9 % Monocytes % 6 % Eosinophils % 2 % Basophils % 1 % Neutrophils # 6.9 (1.3-7.7) k/uL Lymphocytes # 0.7 L (1.0-4.8) k/uL Monocytes # 0.5 (0-1.0) k/uL Eosinophils # 0.2 (0-0.7) k/uL Basophils # 0.1 (0-0.2) k/uL Anisocytosis Slight Sodium 138 (137-145) mmol/L Potassium 4.9 (3.5-5.1) mmol/L Chloride 95 L (98-107) mmol/L Carbon Dioxide 26 (22-30) mmol/L Anion Gap 17 mmol/L BUN 38 H (9-20) mg/dL Creatinine 8.34 H* (0.66-1.25) mg/dL Est GFR (MDRD) Af Amer 9 (>60 ml/min/1.73 sqM) Est GFR (MDRD) Non-Af 7 (>60 ml/min/1.73 sqM) Glucose 377 H (74-99) mg/dL Calcium 10.1 (8.4-10.2) mg/dL Total Bilirubin 1.0 (0.2-1.3) mg/dL AST 31 (17-59) U/L ALT 29 (21-72) U/L Alkaline Phosphatase 107 (38-126) U/L Total Protein 7.8 (6.3-8.2) g/dL Albumin 4.3 (3.5-5.0) g/dL Amylase 111 H (30-110) U/L Lipase 97 (23-300) U/L Acetone, Qual Negative (Negative) Disposition Clinical Impression: Nausea and vomiting, ESRD (end stage renal disease) on dialysis, Diabetes Disposition: HOME SELF-CARE Condition: Good Instructions: Acute Nausea and Vomiting (ED) Additional Instructions: Please follow-up and have dialysis tomorrow. Please follow-up with family doctor in the next 2 days. Please return to emergency room if the symptoms increase or worsen or for any other concerns. Referrals: Kala Onofre MD [Primary Care Provider] - 1-2 days Time of Disposition: 12:17
[2017-01-07] MEDS ORDERED: cloNIDine 0.2 MG/24HR PATCH 1 PATCH PATCH TRANSDERM SCH (10:00)
[2017-01-07 10:44] LABS: Anisocytosis Slight; Basophils # (A) 0.1 k/uL (0-0.2); Basophils % (A) 1 %; CH 30.3; CHCM 32.4; Eosinophils # (A) 0.2 k/uL (0-0.7); Eosinophils % (A) 2 %; HCT 37.1 % (39.0-53.0); HDW 2.83; HGB 11.7 gm/dL (13.0-17.5); Luc # (Auto) 0.24; Luc % (Auto) 3; Lymphocytes # (A) 0.7 k/uL (1.0-4.8); Lymphocytes % (A) 9 %; MCH 29.5 pg (25.0-35.0); MCHC 31.4 g/dL (31.0-37.0); Mean Platelet Volume 7.5; Monocytes # (A) 0.5 k/uL (0-1.0); Monocytes % (A) 6 %; Neutrophils # (A) 6.9 k/uL (1.3-7.7); Neutrophils % (A) 79 %; RBC 3.95 m/uL (4.30-5.90); RDW 17.5 % (11.5-15.5); WBC 8.7 k/uL (3.8-10.6)
[2017-01-07 10:53] LABS: ALT 29 U/L (21-72); AST 31 U/L (17-59); Alkaline Phosphatase 107 U/L (38-126); Amylase 111 U/L (30-110); Anion Gap 17 mmol/L; Blood Urea Nitrogen 38 mg/dL (9-20); Calcium 10.1 mg/dL (8.4-10.2); Carbon Dioxide 26 mmol/L (22-30); Chloride 95 mmol/L (98-107); Glucose 377 mg/dL (74-99); Sodium 138 mmol/L (137-145); Total Protein 7.8 g/dL (6.3-8.2)
[2017-01-07 11:08] LABS: Non-African American GFR(MDRD) 7 (>60 ml/min/1.73 sqM); Potassium 4.9 mmol/L (3.5-5.1)
[2017-01-07] MEDS ORDERED: ONDANSETRON 4 MG/2 ML VIAL IVP STA (12:16)
[2017-01-07] MEDS ORDERED: ONDANSETRON 4 MG/2 ML VIAL IM STA (12:38)
[2017-01-07 12:45] VITALS: BP 198/91; PULSE 80; RESP 18; TEMP 98.8
== END 2017-01-07 12:44 | disposition home or self-care (01) ==
LOC: EC 08:51
DX: N18.6 End stage renal disease (principal); E10.22 Type 1 diabetes mellitus with diabetic chronic kidney disease; R10.30 Lower abdominal pain, unspecified; R10.13 Epigastric pain; I13.2 Hypertensive heart and chronic kidney disease with heart failure and with stage 5 chronic kidney disease, or end stage renal disease; I50.9 Heart failure, unspecified; E10.319 Type 1 diabetes mellitus with unspecified diabetic retinopathy without macular edema; K31.84 Gastroparesis; K21.9 Gastro-esophageal reflux disease without esophagitis; F41.9 Anxiety disorder, unspecified; Z87.891 Personal history of nicotine dependence; Z79.899 Other long term (current) drug therapy; Z88.5 Allergy status to narcotic agent; Z88.8 Allergy status to other drugs, medicaments and biological substances; Z86.79 Personal history of other diseases of the circulatory system; Z83.3 Family history of diabetes mellitus; Z99.2 Dependence on renal dialysis; Z90.49 Acquired absence of other specified parts of digestive tract
CPT/HCPCS: 36415; 80053; 82009; 82150; 83690; 85025; 96361; 96372; 96374; 96375; 99284

== ENCOUNTER 2017-03-10 14:55 | Emergency (ER) | payer MEDICARE, OTHER ==
[2017-03-10] MEDS ORDERED: SODIUM CHLORIDE 0.9% 500 ML IV STA (16:44)
[2017-03-10] MEDS ORDERED: ONDANSETRON 4 MG/2 ML VIAL IVP STA (16:44)
[2017-03-10] MEDS ORDERED: HYDROmorphone 0.5 MG/0.5 ML SYRINGE IVP STA (16:44)
[2017-03-10] MEDS ORDERED: LABETALOL 5 MG/ML VIAL MDV IVP STA (16:45)
[2017-03-10 17:09] LABS: Anisocytosis Slight; HCT 35.4 % (39.0-53.0); HGB 10.9 gm/dL (13.0-17.5); Hypochromasia Moderate; MCH 29.9 pg (25.0-35.0); MCHC 30.7 g/dL (31.0-37.0); MCV 97.4 fL (80.0-100.0); Macrocytosis Slight; Mean Platelet Volume 8.6; Neutrophils % (A) 72 %; Platelet Count 153 k/uL (150-450); RBC 3.63 m/uL (4.30-5.90); RDW 17.5 % (11.5-15.5); WBC 6.4 k/uL (3.8-10.6)
[2017-03-10 17:10] LABS: Basophils # (A) 0.1 k/uL (0-0.2); Basophils % (A) 1 %; Eosinophils # (A) 0.3 k/uL (0-0.7); Eosinophils % (A) 5 %; Lymphocytes % (A) 15 %; Monocytes # (A) 0.3 k/uL (0-1.0); Monocytes % (A) 5 %; Neutrophils # (A) 4.6 k/uL (1.3-7.7)
--- NOTE | 2017-03-10 17:14 | ED ---
General Adult HPI - General Chief complaint: Nausea/Vomiting/Diarrhea Stated complaint: Abd Pain Time Seen by Provider: 03/10/17 16:34 Source: patient, family, RN notes reviewed, old records reviewed Mode of arrival: ambulatory Limitations: no limitations - History of Present Illness Initial comments: Chief complaint and history of present illness is a 41-year-old male here with a known history of gastroparesis. He reports been on home with nausea vomiting for several days. Yesterday he had dialysis. Patient complains of abdominal pain that was keep his medications down. Presents emergency room with elevated blood pressure [id number]. - Related Data Home Medications Medication Instructions Recorded Confirmed LORazepam [Ativan] 0.5 mg PO DAILY PRN 06/06/14 03/10/17 amLODIPine BESYLATE [Amlodipine 10 mg PO QAM 06/24/15 03/10/17 Besylate] Cyclobenzaprine [Flexeril] 5 mg PO TID PRN 02/20/16 03/10/17 Omeprazole [PriLOSEC] 20 mg PO DAILY 02/20/16 03/10/17 HYDROmorphone [Dilaudid] 2 mg PO DAILY PRN 03/28/16 03/10/17 hydrALAZINE HCL [Apresoline] 100 mg PO TID 03/28/16 03/10/17 Lisinopril 5 mg PO DAILY 06/13/16 03/10/17 Famotidine [Pepcid] 20 mg PO BID PRN 07/13/16 03/10/17 hydrOXYzine HCL 10 - 50 mg PO TID PRN 11/15/16 03/10/17 chlorproMAZINE [Thorazine] 25 mg PO BID 12/28/16 03/10/17 Docusate Sodium [Dok] 100 mg PO BID 01/30/17 03/10/17 Cinacalcet HCl [Sensipar] 60 mg PO Q2D 01/31/17 03/10/17 Sevelamer [Renvela] 1,600 mg PO AC-TID 01/31/17 03/10/17 Previous Rx's Medication Instructions Recorded cloNIDine HCL [Catapres] 0.2 mg PO TID tab 02/20/16 Insulin Glargine [Lantus] 12 unit SQ HS #0 12/05/16 Ondansetron Odt [Zofran ODT] 4 mg PO Q8HR PRN #12 tab 12/05/16 Docusate Sodium [Dok] 100 mg PO BID #30 capsule 03/10/17 Allergies Allergy/AdvReac Type Severity Reaction Status Date / Time codeine Allergy Rash/Hives Verified 03/10/17 16:28 metoclopramide HCl AdvReac Muscle Verified 03/10/17 16:28 [From Reglan] Spasms morphine AdvReac Increases Verified 03/10/17 16:28 Pain Review of Systems ROS Statement: Those systems with pertinent positive or pertinent negative responses have been documented in the HPI. Review of systems. The patient complains of chronic abdominal pain with gastroparesis. History of renal failure on dialysis, had dialysis yesterday. Past medical problems angina, CHF, TIA, insulin-dependent diabetes mellitus, dialysis, GERD, gastroparesis, hypertension, seizure disorder, skin disorder, hypothyroidism. Surgeries cholecystectomy, heart catheterization hernia repair bilateral retinal repair. Family history not contributory ALLERGIES to codeine , metoclopramide and morphine. ROS Other: All systems not noted in ROS Statement are negative. Past Medical History Past Medical History: Chest Pain / Angina, Heart Failure, CVA/TIA, Diabetes Mellitus, Dialysis, Eye Disorder, GERD/Reflux, Hypertension, Renal Disease, Seizure Disorder, Skin Disorder, Thyroid Disorder Additional Past Medical History / Comment(s): scattered skin sores melita arms, Chronic renal failure stage IV, hemodialysis M/W/FR-4 hr, past peritoneal dialysis with peritonitis, gastroparesis, cyclic vomiting, chronic abdominal pain, pancreatitis, IDDM type I brittle, heart murmur, diabetic retinopathy bilaterally, retinal detachment with surgery, hypothyroid, hiatal hernia, sinusitis, bronchitis, chronic back pain, anemia, last seizure in 2015. History of Any Multi-Drug Resistant Organisms: None Reported Past Surgical History: Cholecystectomy, Heart Catheterization, Hernia Repair Additional Past Surgical History / Comment(s): bilateral retinal reattachment sx , hemodialysis catheter in Feb 2013- lt arm fistual, L inguinal hernia, 2009 cardiac cath. Past Anesthesia/Blood Transfusion Reactions: No Reported Reaction Additional Past Anesthesia/Blood Transfusion Reaction / Comment(s): mom states "swelling to uvula with gallbladder surgery went into resp arrest due to blocked airway." Past Psychological History: Anxiety, Depression Smoking Status: Former smoker Past Alcohol Use History: None Reported Past Drug Use History: None Reported - Past Family History Father History Unknown: Yes Mother History Unknown: Yes Family Medical History: COPD Additional Family Medical History / Comment(s): Mother has never smoked. Mother' s brother had diabetes and multiple sclerosis. Brother(s) Family Medical History: Diabetes Mellitus Additional Family Medical History / Comment(s): multiple sclerosis General Exam - General Exam Comments Initial Comments: General: The patient is awake and alert, here with a complaint of nausea vomiting and chronic abdominal pain. Unable to keep his medications including blood pressure pills down. Denies blood in the vomit. Vital signs are temperature 98.0 pulse 79 respiratory rate 18 pulse ox 96% room air blood pressure 207/104. Eye: Pupils are equal, round and reactive to light, extra-ocular movements are intact ; there is normal conjunctiva bilaterally. No signs of icterus. Ears, nose, mouth and throat: There are moist mucous membranes . Neck: The neck is supple,. Cardiovascular: There is a regular rate and rhythm. No murmur, rub or gallop is appreciated. Respiratory: Lungs are clear to auscultation, respirations are non-labored, breath sounds are equal. No wheezes, stridor, rales, or rhonchi. Gastrointestinal: nausea vomiting epigastric discomfort. Nondistended no palpable masses. Active bowel sounds. Back: There is no tenderness to palpation in the midline. There is no obvious deformity. No rashes noted. Musculoskeletal: Normal ROM, no tenderness, There is no pedal edema. There is no calf tenderness or swelling. Sensation intact. Pulses equal bilaterally 2+. Neurological: no neuro deficits Skin: dry, pale skin Limitations: no limitations Course Vital Signs 03/10/17 15:24 Temperature 98.0 F Pulse Rate 79 Respiratory 18 Rate Blood Pressure 207/104 O2 Sat by Pulse 96 Oximetry Medical Decision Making - Medical Decision Making medical decision making; patient's year for chronic recurrent vomiting and abdominal pain secondary to same. History of renal failure on dialysis. History of gastroparesis. Labs show white count of 6.4 hemoglobin 10.9 hematocrit 35.4. Potassium 5.6. BUN/creatinine 55. HEENT 8.68 GFR only 7. Glucose 78. Amylase lipase normal limits. his blood pressures are under better control 160/80. Patient reports that he needs refill of his docusate sodium. she states she is feeling better. Just requests a refill of the docusate. A follow-up with his family physician. - Lab Data Result diagrams: 03/10/17 16:52 03/10/17 16:52 Lab Results 03/10/17 03/10/17 Range/Units 16:52 16:52 WBC 6.4 (3.8-10.6) k/uL RBC 3.63 L (4.30-5.90) m/uL Hgb 10.9 L (13.0-17.5) gm/dL Hct 35.4 L (39.0-53.0) % MCV 97.4 (80.0-100.0) fL MCH 29.9 (25.0-35.0) pg MCHC 30.7 L (31.0-37.0) g/dL RDW 17.5 H (11.5-15.5) % Plt Count 153 (150-450) k/uL Neutrophils % 72 % Lymphocytes % 15 % Monocytes % 5 % Eosinophils % 5 % Basophils % 1 % Neutrophils # 4.6 (1.3-7.7) k/uL Lymphocytes # 1.0 (1.0-4.8) k/uL Monocytes # 0.3 (0-1.0) k/uL Eosinophils # 0.3 (0-0.7) k/uL Basophils # 0.1 (0-0.2) k/uL Hypochromasia Moderate Anisocytosis Slight Macrocytosis Slight Sodium 142 (137-145) mmol/L Potassium 5.6 H (3.5-5.1) mmol/L Chloride 99 (98-107) mmol/L Carbon Dioxide 26 (22-30) mmol/L Anion Gap 17 mmol/L BUN 55 H (9-20) mg/dL Creatinine 8.68 H* (0.66-1.25) mg/dL Est GFR (MDRD) Af Amer 8 (>60 ml/min/1.73 sqM) Est GFR (MDRD) Non-Af 7 (>60 ml/min/1.73 sqM) Glucose 78 (74-99) mg/dL Calcium 8.8 (8.4-10.2) mg/dL Total Bilirubin 0.8 (0.2-1.3) mg/dL AST 29 (17-59) U/L ALT 33 (21-72) U/L Alkaline Phosphatase 147 H (38-126) U/L Total Protein 7.3 (6.3-8.2) g/dL Albumin 4.1 (3.5-5.0) g/dL Amylase 75 (30-110) U/L Lipase 111 (23-300) U/L Disposition Clinical Impression: Gastroparesis due to DM Disposition: HOME SELF-CARE Condition: Stable Instructions: Acute Nausea and Vomiting (ED) Additional Instructions: follow-up with family physician, follow-up with dialysis, take medications as directed Prescriptions: Docusate Sodium [Dok] 100 mg PO BID #30 capsule Referrals: Kala Onofre MD [Primary Care Provider] - 1-2 days Time of Disposition: 18:18
[2017-03-10 17:41] LABS: Albumin 4.1 g/dL (3.5-5.0); Calcium 8.8 mg/dL (8.4-10.2); Potassium 5.6 mmol/L (3.5-5.1); Total Bilirubin 0.8 mg/dL (0.2-1.3); Total Protein 7.3 g/dL (6.3-8.2)
[2017-03-10 19:00] VITALS: BP 194/103; PULSE 71; RESP 16; TEMP 97.6
== END 2017-03-10 18:50 | disposition home or self-care (01) ==
LOC: EC 14:55
DX: E10.43 Type 1 diabetes mellitus with diabetic autonomic (poly)neuropathy (principal); K31.84 Gastroparesis; E10.22 Type 1 diabetes mellitus with diabetic chronic kidney disease; I13.0 Hypertensive heart and chronic kidney disease with heart failure and stage 1 through stage 4 chronic kidney disease, or unspecified chronic kidney disease; N18.4 Chronic kidney disease, stage 4 (severe); I50.9 Heart failure, unspecified; K21.9 Gastro-esophageal reflux disease without esophagitis; E10.319 Type 1 diabetes mellitus with unspecified diabetic retinopathy without macular edema; E03.9 Hypothyroidism, unspecified; Z99.2 Dependence on renal dialysis; Z90.49 Acquired absence of other specified parts of digestive tract; Z87.891 Personal history of nicotine dependence; Z88.5 Allergy status to narcotic agent; Z88.8 Allergy status to other drugs, medicaments and biological substances; Z79.4 Long term (current) use of insulin; Z79.899 Other long term (current) drug therapy
CPT/HCPCS: 36415; 80053; 82150; 83690; 85025; 99284; 96374; 96375 ×2; 96361; J2405; J1170

== ENCOUNTER 2017-04-09 21:05 | Emergency (ER) | payer MEDICARE, OTHER ==
[2017-04-09] MEDS ORDERED: PANTOPRAZOLE 40 MG/10 ML VIAL IVP STA (22:04)
[2017-04-09] MEDS ORDERED: HYDROmorphone 0.5 MG/0.5 ML SYRINGE IVP STA (22:04)
[2017-04-09] MEDS ORDERED: SODIUM CHLORIDE 0.9% 1,000 ML IV STA (22:04)
[2017-04-09] MEDS ORDERED: ONDANSETRON 4 MG/2 ML VIAL IVP STA (22:04)
[2017-04-09] MEDS ORDERED: hydrALAZINE HCL 20 MG/ML 1 ML VIAL IVP STA (22:04)
--- NOTE | 2017-04-09 22:11 | ED ---
General Adult HPI - General Chief complaint: Abdominal Pain Stated complaint: NVD Time Seen by Provider: 04/09/17 21:29 Source: patient, RN notes reviewed, old records reviewed Mode of arrival: EMS Limitations: no limitations - History of Present Illness Initial comments: Chief complaint history of present illness this is a 41-year-old male well- known emergency room for gastroparesis dialysis for chronic renal failure. The patient has an appointment to follow-up for possible gastric pacemaker to assist his chronic gastroparesis. The patient reports this morning he started having nausea vomiting is unable to keep his medications down. He has dialysis on Saturday and Saturday. - Related Data Home Medications Medication Instructions Recorded Confirmed LORazepam [Ativan] 0.5 mg PO DAILY PRN 06/06/14 04/09/17 amLODIPine BESYLATE [Amlodipine 10 mg PO QAM 06/24/15 04/09/17 Besylate] Cyclobenzaprine [Flexeril] 5 mg PO TID PRN 02/20/16 04/09/17 Omeprazole [PriLOSEC] 20 mg PO DAILY 02/20/16 04/09/17 HYDROmorphone [Dilaudid] 2 mg PO DAILY PRN 03/28/16 04/09/17 hydrALAZINE HCL [Apresoline] 100 mg PO TID 03/28/16 04/09/17 Lisinopril 5 mg PO DAILY 06/13/16 04/09/17 Famotidine [Pepcid] 20 mg PO BID PRN 07/13/16 04/09/17 hydrOXYzine HCL 10 - 50 mg PO TID PRN 11/15/16 04/09/17 chlorproMAZINE [Thorazine] 25 mg PO BID 12/28/16 04/09/17 Cinacalcet HCl [Sensipar] 60 mg PO Q2D 01/31/17 04/09/17 Sevelamer [Renvela] 1,600 mg PO AC-TID 01/31/17 04/09/17 Previous Rx's Medication Instructions Recorded cloNIDine HCL [Catapres] 0.2 mg PO TID tab 02/20/16 Insulin Glargine [Lantus] 12 unit SQ HS #0 12/05/16 Ondansetron Odt [Zofran ODT] 4 mg PO Q8HR PRN #12 tab 12/05/16 Docusate Sodium [Dok] 100 mg PO BID #30 capsule 03/10/17 Allergies Allergy/AdvReac Type Severity Reaction Status Date / Time codeine Allergy Rash/Hives Verified 04/09/17 21:12 metoclopramide HCl AdvReac Muscle Verified 04/09/17 21:12 [From Reglan] Spasms morphine AdvReac Increases Verified 04/09/17 21:12 Pain Review of Systems ROS Statement: Those systems with pertinent positive or pertinent negative responses have been documented in the HPI. Review of systems no headache no visual acuity changes he has I changes due to diabetes. No chest pain or shortness of breath he has chronic abdominal pain associated gastroparesis and frequent nausea and vomiting. 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 All systems are reviewed. Past medical processing significant for angina, CHF, TIA, insulin-dependent diabetes mellitus, Dialysis Saturday. Adenitis Order GERD, Hypertension, Renal Failure on Dialysis. Seizure Disorder , Skin Disorder, Hypothyroidism. Surgeries Cholecystectomy, Heart Cath, Hernia Repair Bilateral Retina Surgery. Family History Noncontributory Patient Has ALLERGIES to codeine metoclopramide and morphine. Patient put smoking. Denies alcohol use. ROS Other: All systems not noted in ROS Statement are negative. Past Medical History Past Medical History: Chest Pain / Angina, Heart Failure, CVA/TIA, Diabetes Mellitus, Dialysis, Eye Disorder, GERD/Reflux, Hypertension, Renal Disease, Seizure Disorder, Skin Disorder, Thyroid Disorder Additional Past Medical History / Comment(s): scattered skin sores melita arms, Chronic renal failure stage IV, hemodialysis M/W/FR-4 hr, past peritoneal dialysis with peritonitis, gastroparesis, cyclic vomiting, chronic abdominal pain, pancreatitis, IDDM type I brittle, heart murmur, diabetic retinopathy bilaterally, retinal detachment with surgery, hypothyroid, hiatal hernia, sinusitis, bronchitis, chronic back pain, anemia, last seizure in 2015. History of Any Multi-Drug Resistant Organisms: None Reported Past Surgical History: Cholecystectomy, Heart Catheterization, Hernia Repair Additional Past Surgical History / Comment(s): bilateral retinal reattachment sx , hemodialysis catheter in Feb 2013- lt arm fistual, L inguinal hernia, 2009 cardiac cath. Past Anesthesia/Blood Transfusion Reactions: No Reported Reaction Additional Past Anesthesia/Blood Transfusion Reaction / Comment(s): mom states "swelling to uvula with gallbladder surgery went into resp arrest due to blocked airway." Past Psychological History: Anxiety, Depression Smoking Status: Former smoker Past Alcohol Use History: None Reported Past Drug Use History: None Reported - Past Family History Father History Unknown: Yes Mother History Unknown: Yes Family Medical History: COPD Additional Family Medical History / Comment(s): Mother has never smoked. Mother' s brother had diabetes and multiple sclerosis. Brother(s) Family Medical History: Diabetes Mellitus Additional Family Medical History / Comment(s): multiple sclerosis General Exam - General Exam Comments Initial Comments: General: The patient is awake and alert, appears acute pain nausea vomiting history of gastroparesis and hemodialysis. Vital signs, temp 98.2 pulse 83 respiratory rate 20 pulse ox 90% 2 L with a blood pressure 220/107. Eye: Pupils are equal, round and reactive to light, extra-ocular movements are intact ; there is normal conjunctiva bilaterally. No signs of icterus. Ears, nose, mouth and throat: Mildly dry mucous membranes. Neck: The neck is supple, Cardiovascular: There is a regular rate and rhythm. No murmur, rub or gallop is appreciated. Respiratory: Lungs are clear to auscultation, respirations are non-labored, breath sounds are equal. No wheezes, stridor, rales, or rhonchi. Gastrointestinal: Epigastric pain, no rebound or referred pain. Hypoactive bowel sounds. History of gastroparesis. Back: No back pain at this time. Musculoskeletal: Normal ROM, no tenderness, Neurological: No neuro deficits Skin: Skin color typical of chronic renal failure Limitations: no limitations Course Vital Signs 04/09/17 04/09/17 04/09/17 21:07 22:45 22:53 Temperature 98.2 F Pulse Rate 83 81 82 Respiratory 20 20 20 Rate Blood Pressure 220/107 203/103 203/111 O2 Sat by Pulse 99 99 99 Oximetry 04/09/17 23:15 Temperature Pulse Rate 88 Respiratory 20 Rate Blood Pressure 179/89 O2 Sat by Pulse 99 Oximetry Medical Decision Making - Medical Decision Making Medical decision making; the patient well-known emergency room for gastroparesis , recurrent episodes of nausea vomiting abdominal pain. Receives dialysis 3 times weekly. Patient's blood. Pressure was treated with hydralazine LAbs at this time show white count 8.9 hemoglobin 9 hematocrit of 30. Acetone is negative. Potassium 5.0 BUN 67 creatinine 6.9 and GFR of only 9. Blood sugar 308. Abdominal x-rays were done and reviewed by radiologist his impression is; there is no sign of intestinal obstruction or pneumoperitoneum. Fecal pattern is normal. There is calcification in the renal arteries. Heart is enlarged. There are clips from cholecystectomy. There is extensive arterial calcifications in the femoral arteries and iliac arteries. There is no evidence of a mass. Impression; nonacute abdomen. Extensive vascular calcification. Cardiomegaly. No significant change compared to old exam. As read by Dr. Miles After IV hydration, IV pain medication and Zofran and hydralazine patient reports he wants to go. He has an appointment to follow-up with his side guider. He'll be having his dialysis tomorrow. - Lab Data Result diagrams: 04/09/17 22:35 04/09/17 22:35 Lab Results 04/09/17 04/09/17 Range/Units 22:35 22:35 WBC 8.9 (3.8-10.6) k/uL RBC 3.22 L (4.30-5.90) m/uL Hgb 9.5 L (13.0-17.5) gm/dL Hct 30.7 L (39.0-53.0) % MCV 95.4 (80.0-100.0) fL MCH 29.6 (25.0-35.0) pg MCHC 31.0 (31.0-37.0) g/dL RDW 17.7 H (11.5-15.5) % Plt Count 149 L (150-450) k/uL Neutrophils % 80 % Lymphocytes % 9 % Monocytes % 4 % Eosinophils % 4 % Basophils % 1 % Neutrophils # 7.1 (1.3-7.7) k/uL Lymphocytes # 0.8 L (1.0-4.8) k/uL Monocytes # 0.4 (0-1.0) k/uL Eosinophils # 0.4 (0-0.7) k/uL Basophils # 0.1 (0-0.2) k/uL Anisocytosis Slight Macrocytosis Slight Sodium 137 (137-145) mmol/L Potassium 5.0 (3.5-5.1) mmol/L Chloride 96 L (98-107) mmol/L Carbon Dioxide 27 (22-30) mmol/L Anion Gap 14 mmol/L BUN 67 H (9-20) mg/dL Creatinine 6.90 H* (0.66-1.25) mg/dL Est GFR (MDRD) Af Amer 11 (>60 ml/min/1.73 sqM) Est GFR (MDRD) Non-Af 9 (>60 ml/min/1.73 sqM) Glucose 308 H (74-99) mg/dL Calcium 8.2 L (8.4-10.2) mg/dL Total Bilirubin 0.8 (0.2-1.3) mg/dL AST 32 (17-59) U/L ALT 28 (21-72) U/L Alkaline Phosphatase 120 (38-126) U/L Total Protein 6.8 (6.3-8.2) g/dL Albumin 3.9 (3.5-5.0) g/dL Amylase 65 (30-110) U/L Lipase 193 (23-300) U/L Acetone, Qual Negative (Negative) Disposition Clinical Impression: Gastroparesis diabeticorum Disposition: HOME SELF-CARE Condition: Fair Instructions: End Stage Kidney Disease (ED), Gastroparesis (ED), Acute Nausea and Vomiting (ED) Additional Instructions: Continue home medications, follow-up family physician, side guider. Referrals: Kala Onofre MD [Primary Care Provider] - 1-2 days Time of Disposition: 00:04
--- NOTE | 2017-04-09 22:37 | XR ---
EXAMINATION TYPE: XR abdomen 2V DATE OF EXAM: 04/09/2017 COMPARISON: 12/09/2016 HISTORY: Abdominal pain TECHNIQUE: 3 views FINDINGS: There is no sign of intestinal obstruction or pneumoperitoneum. Fecal pattern is normal. Th ere is calcification in the renal vessels. Heart is enlarged. There are clips from cholecystectomy. T here is extensive arterial calcification seen in the femoral arteries and iliac arteries. There is no evidence of a mass. IMPRESSION: Nonacute abdomen. Extensive vascular calcification. Cardiomegaly. No significant change c ompared to old exam.
[2017-04-09 22:58] LABS: Anisocytosis Slight; Basophils # (A) 0.1 k/uL (0-0.2); Basophils % (A) 1 %; Eosinophils # (A) 0.4 k/uL (0-0.7); Eosinophils % (A) 4 %; HCT 30.7 % (39.0-53.0); HGB 9.5 gm/dL (13.0-17.5); Lymphocytes # (A) 0.8 k/uL (1.0-4.8); Lymphocytes % (A) 9 %; MCH 29.6 pg (25.0-35.0); MCV 95.4 fL (80.0-100.0); Macrocytosis Slight; Mean Platelet Volume 7.9; Monocytes # (A) 0.4 k/uL (0-1.0); Monocytes % (A) 4 %; Neutrophils # (A) 7.1 k/uL (1.3-7.7); Neutrophils % (A) 80 %; Platelet Count 149 k/uL (150-450); RBC 3.22 m/uL (4.30-5.90); RDW 17.7 % (11.5-15.5); WBC 8.9 k/uL (3.8-10.6)
[2017-04-09 23:11] LABS: ALT 28 U/L (21-72); AST 32 U/L (17-59); Albumin 3.9 g/dL (3.5-5.0); Alkaline Phosphatase 120 U/L (38-126); Amylase 65 U/L (30-110); Anion Gap 14 mmol/L; Blood Urea Nitrogen 67 mg/dL (9-20); Calcium 8.2 mg/dL (8.4-10.2); Carbon Dioxide 27 mmol/L (22-30); Chloride 96 mmol/L (98-107); Glucose 308 mg/dL (74-99); Lipase 193 U/L (23-300); Sodium 137 mmol/L (137-145); Total Bilirubin 0.8 mg/dL (0.2-1.3); Total Protein 6.8 g/dL (6.3-8.2)
[2017-04-09] MEDS ORDERED: diphenhydrAMINE 50 MG/ML 1 ML VIAL IVP STA (23:48)
[2017-04-10 00:28] VITALS: BP 178/78; PULSE 70; RESP 18; TEMP 97.8
== END 2017-04-10 00:29 | disposition home or self-care (01) ==
LOC: EC 21:05
DX: E10.43 Type 1 diabetes mellitus with diabetic autonomic (poly)neuropathy (principal); K31.84 Gastroparesis; I51.7 Cardiomegaly; E03.9 Hypothyroidism, unspecified; E10.319 Type 1 diabetes mellitus with unspecified diabetic retinopathy without macular edema; E10.22 Type 1 diabetes mellitus with diabetic chronic kidney disease; I13.0 Hypertensive heart and chronic kidney disease with heart failure and stage 1 through stage 4 chronic kidney disease, or unspecified chronic kidney disease; I50.9 Heart failure, unspecified; N18.4 Chronic kidney disease, stage 4 (severe); K21.9 Gastro-esophageal reflux disease without esophagitis; Z98.890 Other specified postprocedural states; Z90.49 Acquired absence of other specified parts of digestive tract; Z87.891 Personal history of nicotine dependence; Z88.5 Allergy status to narcotic agent; Z88.8 Allergy status to other drugs, medicaments and biological substances; Z99.2 Dependence on renal dialysis; Z79.899 Other long term (current) drug therapy
CPT/HCPCS: 36415; 80053; 82150; 82009; 83690; 85025; 74019; 99285; 96374; 96375 ×4; 96361 ×2; J0360; J1200; J2405; C9113; J1170

== ENCOUNTER 2017-04-12 00:32 | Inpatient (IN) | payer MEDICARE, OTHER ==
[2017-04-12] MEDS ORDERED: SODIUM CHLORIDE 0.9% 1,000 ML IV ONE (00:47)
[2017-04-12] MEDS ORDERED: ONDANSETRON 4 MG/2 ML VIAL IVP STA (00:47)
[2017-04-12] MEDS ORDERED: PROMETHAZINE INJ 25 MG in SODIUM CHLORIDE 0.9% 50 ML IVPB STA (00:50)
[2017-04-12] MEDS ORDERED: HYDROmorphone 2 MG/ML 1 ML SYRINGE IVP STA ×2 (00:50→02:19)
[2017-04-12] MEDS ORDERED: diphenhydrAMINE 50 MG/ML 1 ML VIAL IVP STA (00:51)
--- NOTE | 2017-04-12 00:55 | ED ---
Abdominal Pain HPI - General Chief Complaint: Abdominal Pain Stated Complaint: abd pain Time Seen by Provider: 04/12/17 00:34 Source: patient, EMS Mode of arrival: EMS Limitations: no limitations - History of Present Illness Initial Comments: 41-year-old male patient with past medical history significant for diabetes mellitus, gastroparesis, end-stage renal disease, chronic abdominal pain, and cyclic vomiting presents to the emergency department today for evaluation of abdominal pain and vomiting. Patient is here frequently for similar complaints. He states the pain started this morning. States it is sharp and located in the epigastric region, reports it radiates to his back. States that he hasn't been able to keep down any of his pills. He states he did take Zofran for the vomiting but is not helping. He denies any hematemesis. Denies any constipation or diarrhea. Patient does have dialysis on a Saturday, Saturday , Saturday schedule. States he did have dialysis last on Saturday. States he has been compliant with his schedule. He is anuric. Patient denies any recent rash, fever, chills, shortness breath, chest pain, numbness, tingling, dizziness , weakness, headache, visual changes, or any other complaints. - Related Data Home Medications Medication Instructions Recorded Confirmed LORazepam [Ativan] 0.5 mg PO DAILY PRN 06/06/14 04/09/17 amLODIPine BESYLATE [Amlodipine 10 mg PO QAM 06/24/15 04/09/17 Besylate] Cyclobenzaprine [Flexeril] 5 mg PO TID PRN 02/20/16 04/09/17 Omeprazole [PriLOSEC] 20 mg PO DAILY 02/20/16 04/09/17 HYDROmorphone [Dilaudid] 2 mg PO DAILY PRN 03/28/16 04/09/17 hydrALAZINE HCL [Apresoline] 100 mg PO TID 03/28/16 04/09/17 Lisinopril 5 mg PO DAILY 06/13/16 04/09/17 Famotidine [Pepcid] 20 mg PO BID PRN 07/13/16 04/09/17 hydrOXYzine HCL 10 - 50 mg PO TID PRN 11/15/16 04/09/17 chlorproMAZINE [Thorazine] 25 mg PO BID 12/28/16 04/09/17 Cinacalcet HCl [Sensipar] 60 mg PO Q2D 01/31/17 04/09/17 Sevelamer [Renvela] 1,600 mg PO AC-TID 01/31/17 04/09/17 Previous Rx's Medication Instructions Recorded cloNIDine HCL [Catapres] 0.2 mg PO TID tab 02/20/16 Insulin Glargine [Lantus] 12 unit SQ HS #0 12/05/16 Ondansetron Odt [Zofran ODT] 4 mg PO Q8HR PRN #12 tab 12/05/16 Docusate Sodium [Dok] 100 mg PO BID #30 capsule 03/10/17 Allergies Allergy/AdvReac Type Severity Reaction Status Date / Time codeine Allergy Rash/Hives Verified 04/12/17 00:41 metoclopramide HCl AdvReac Muscle Verified 04/12/17 00:41 [From Reglan] Spasms morphine AdvReac Increases Verified 04/12/17 00:41 Pain Review of Systems ROS Statement: Those systems with pertinent positive or pertinent negative responses have been documented in the HPI. ROS Other: All systems not noted in ROS Statement are negative. Past Medical History Past Medical History: Chest Pain / Angina, Heart Failure, CVA/TIA, Diabetes Mellitus, Dialysis, Eye Disorder, GERD/Reflux, Hypertension, Renal Disease, Seizure Disorder, Skin Disorder, Thyroid Disorder Additional Past Medical History / Comment(s): scattered skin sores melita arms, Chronic renal failure stage IV, hemodialysis M/W/FR-4 hr, past peritoneal dialysis with peritonitis, gastroparesis, cyclic vomiting, chronic abdominal pain, pancreatitis, IDDM type I brittle, heart murmur, diabetic retinopathy bilaterally, retinal detachment with surgery, hypothyroid, hiatal hernia, sinusitis, bronchitis, chronic back pain, anemia, last seizure in 2015. History of Any Multi-Drug Resistant Organisms: None Reported Past Surgical History: Cholecystectomy, Heart Catheterization, Hernia Repair Additional Past Surgical History / Comment(s): bilateral retinal reattachment sx , hemodialysis catheter in Feb 2013- lt arm fistual, L inguinal hernia, 2009 cardiac cath. Past Anesthesia/Blood Transfusion Reactions: No Reported Reaction Additional Past Anesthesia/Blood Transfusion Reaction / Comment(s): mom states "swelling to uvula with gallbladder surgery went into resp arrest due to blocked airway." Past Psychological History: Anxiety, Depression Smoking Status: Former smoker Past Alcohol Use History: None Reported Past Drug Use History: None Reported - Past Family History Father History Unknown: Yes Mother History Unknown: Yes Family Medical History: COPD Additional Family Medical History / Comment(s): Mother has never smoked. Mother' s brother had diabetes and multiple sclerosis. Brother(s) Family Medical History: Diabetes Mellitus Additional Family Medical History / Comment(s): multiple sclerosis General Exam Limitations: no limitations General appearance: alert, in no apparent distress, other (This is a thin, ill- appearing adult male patient in mild distress related to pain. Vital signs upon presentation are temperature 98.5F, pulse 72, respirations 18, blood pressure 200/103, pulse ox 98% on room air.) Eye exam: Present: normal appearance, PERRL, EOMI. Absent: scleral icterus, conjunctival injection, periorbital swelling ENT exam: Present: normal exam, normal oropharynx, mucous membranes moist Respiratory exam: Present: normal lung sounds bilaterally, other (Patient is tachypneic). Absent: respiratory distress, wheezes, rales, rhonchi, stridor Cardiovascular Exam: Present: regular rate, normal rhythm, normal heart sounds. Absent: systolic murmur, diastolic murmur, rubs, gallop, clicks GI/Abdominal exam: Present: soft, tenderness (Mid epigastric abdominal tenderness), normal bowel sounds. Absent: distended, guarding, rebound, rigid Neurological exam: Present: alert, oriented X3, CN II-XII intact Psychiatric exam: Present: normal affect, normal mood Skin exam: Present: warm, dry, intact, normal color. Absent: rash Course Vital Signs 04/12/17 00:39 Temperature 98.5 F Pulse Rate 72 Respiratory 18 Rate Blood Pressure 200/103 O2 Sat by Pulse 98 Oximetry Medical Decision Making - Medical Decision Making 41-year-old male patient presents to the emergency department today for evaluation of abdominal pain and vomiting that started this morning. Physical examination did reveal mid epigastric abdominal pain. Labs are performed and did reveal a hemoglobin of 9.7, anion gap of 17, BUN 53, creatinine 6.8, blood glucose 260. Patient is an [employer] so urinalysis was not obtained. I did give IV pain medication and nausea medicine here in the department. Symptoms are not improved. He states they're still severe. Blood pressure is also elevated as he has been unable to take his blood pressure medication due to the vomiting. We did give him a Catapres patch. He'll be admitted to the hospital for further management of his symptoms. - Lab Data Result diagrams: 04/12/17 01:10 04/12/17 01:10 Lab Results 04/12/17 04/12/17 04/12/17 Range/Units 01:00 01:10 01:10 WBC 7.3 (3.8-10.6) k/uL RBC 3.28 L (4.30-5.90) m/uL Hgb 9.7 L (13.0-17.5) gm/dL Hct 32.2 L (39.0-53.0) % MCV 98.4 (80.0-100.0) fL MCH 29.5 (25.0-35.0) pg MCHC 30.0 L (31.0-37.0) g/dL RDW 17.3 H (11.5-15.5) % Plt Count 144 L (150-450) k/uL Neutrophils % 71 % Lymphocytes % 15 % Monocytes % 6 % Eosinophils % 4 % Basophils % 2 % Neutrophils # 5.1 (1.3-7.7) k/uL Lymphocytes # 1.1 (1.0-4.8) k/uL Monocytes # 0.5 (0-1.0) k/uL Eosinophils # 0.3 (0-0.7) k/uL Basophils # 0.1 (0-0.2) k/uL Anisocytosis Slight Macrocytosis Slight Sodium 140 (137-145) mmol/L Potassium 4.7 (3.5-5.1) mmol/L Chloride 96 L (98-107) mmol/L Carbon Dioxide 27 (22-30) mmol/L Anion Gap 17 mmol/L BUN 53 H (9-20) mg/dL Creatinine 6.80 H* (0.66-1.25) mg/dL Est GFR (MDRD) Af Amer 11 (>60 ml/min/1.73 sqM) Est GFR (MDRD) Non-Af 9 (>60 ml/min/1.73 sqM) Glucose 260 H (74-99) mg/dL POC Glucose (mg/dL) 260 H (75-99) mg/dL POC Glu Budget Engineer ID Terri Green Plasma Lactic Acid Ronaldo (0.7-2.0) mmol/L Calcium 8.7 (8.4-10.2) mg/dL Total Bilirubin 0.8 (0.2-1.3) mg/dL AST 24 (17-59) U/L ALT 30 (21-72) U/L Alkaline Phosphatase 128 H (38-126) U/L Total Protein 7.1 (6.3-8.2) g/dL Albumin 4.0 (3.5-5.0) g/dL Amylase 61 (30-110) U/L Lipase 152 (23-300) U/L Acetone, Qual Negative (Negative) 04/12/17 Range/Units 01:10 WBC (3.8-10.6) k/uL RBC (4.30-5.90) m/uL Hgb (13.0-17.5) gm/dL Hct (39.0-53.0) % MCV (80.0-100.0) fL MCH (25.0-35.0) pg MCHC (31.0-37.0) g/dL RDW (11.5-15.5) % Plt Count (150-450) k/uL Neutrophils % % Lymphocytes % % Monocytes % % Eosinophils % % Basophils % % Neutrophils # (1.3-7.7) k/uL Lymphocytes # (1.0-4.8) k/uL Monocytes # (0-1.0) k/uL Eosinophils # (0-0.7) k/uL Basophils # (0-0.2) k/uL Anisocytosis Macrocytosis Sodium (137-145) mmol/L Potassium (3.5-5.1) mmol/L Chloride (98-107) mmol/L Carbon Dioxide (22-30) mmol/L Anion Gap mmol/L BUN (9-20) mg/dL Creatinine (0.66-1.25) mg/dL Est GFR (MDRD) Af Amer (>60 ml/min/1.73 sqM) Est GFR (MDRD) Non-Af (>60 ml/min/1.73 sqM) Glucose (74-99) mg/dL POC Glucose (mg/dL) (75-99) mg/dL POC Glu Budget Engineer ID Plasma Lactic Acid Ronaldo 0.7 (0.7-2.0) mmol/L Calcium (8.4-10.2) mg/dL Total Bilirubin (0.2-1.3) mg/dL AST (17-59) U/L ALT (21-72) U/L Alkaline Phosphatase (38-126) U/L Total Protein (6.3-8.2) g/dL Albumin (3.5-5.0) g/dL Amylase (30-110) U/L Lipase (23-300) U/L Acetone, Qual (Negative) - EKG Data EKG Comments: EKG obtained at 0102 shows normal sinus rhythm with a rightward axis. Ventricular rate is 74, para interval 124, QRS duration 94, QT 426, QTC 472. Disposition Clinical Impression: Abdominal pain, Vomiting, End stage renal disease Disposition: ADMITTED IP TO THIS [facility] Condition: Serious Referrals: Kala Onofre MD [Primary Care Provider] - 1-2 days Decision to Admit Reason: Admit from EC Decision Date: 04/12/17 Decision Time: 02:20
[2017-04-12 01:11] LABS: Glucose,Whole Blood 260 mg/dL (75-99)
[2017-04-12] MEDS: HYDROmorphone 0.5 MG/0.5 ML SYRINGE IM PRN ×2 (01:22→02:25)
[2017-04-12 01:38] LABS: Anisocytosis Slight; Basophils # (A) 0.1 k/uL (0-0.2); Basophils % (A) 2 %; Eosinophils # (A) 0.3 k/uL (0-0.7); Eosinophils % (A) 4 %; HCT 32.2 % (39.0-53.0); HGB 9.7 gm/dL (13.0-17.5); Lymphocytes # (A) 1.1 k/uL (1.0-4.8); Lymphocytes % (A) 15 %; MCH 29.5 pg (25.0-35.0); MCV 98.4 fL (80.0-100.0); Macrocytosis Slight; Mean Platelet Volume 8.4; Monocytes # (A) 0.5 k/uL (0-1.0); Monocytes % (A) 6 %; Neutrophils # (A) 5.1 k/uL (1.3-7.7); Neutrophils % (A) 71 %; Platelet Count 144 k/uL (150-450); RBC 3.28 m/uL (4.30-5.90); RDW 17.3 % (11.5-15.5); WBC 7.3 k/uL (3.8-10.6)
[2017-04-12 01:47] LABS: ALT 30 U/L (21-72); AST 24 U/L (17-59); Alkaline Phosphatase 128 U/L (38-126); Amylase 61 U/L (30-110); Anion Gap 17 mmol/L; Blood Urea Nitrogen 53 mg/dL (9-20); Calcium 8.7 mg/dL (8.4-10.2); Carbon Dioxide 27 mmol/L (22-30); Chloride 96 mmol/L (98-107); Glucose 260 mg/dL (74-99); Lipase 152 U/L (23-300); Potassium 4.7 mmol/L (3.5-5.1); Sodium 140 mmol/L (137-145); Total Bilirubin 0.8 mg/dL (0.2-1.3); Total Protein 7.1 g/dL (6.3-8.2)
[2017-04-12] MEDS ORDERED: NALOXONE 0.4 MG/ML 1 ML VIAL IV PRN (02:14)
[2017-04-12] MEDS ORDERED: cloNIDine 0.1 MG/24HR PATCH 1 PATCH PATCH TRANSDERM STA (02:18)
[2017-04-12] MEDS ORDERED: hydrALAZINE HCL 20 MG/ML 1 ML VIAL IVP STA (03:23)
[2017-04-12 03:45] VITALS: BMI 20.3
[2017-04-12] MEDS ORDERED: PANTOPRAZOLE 40 MG/10 ML VIAL IVP ONE (05:00)
[2017-04-12] MEDS: HYDROmorphone 0.5 MG/0.5 ML SYRINGE IVP PRN ×5 (06:23→21:41)
[2017-04-12] MEDS: PROMETHAZINE INJ 25 MG in SODIUM CHLORIDE 0.9% 50 ML IVPB PRN ×3 (06:23→21:41)
[2017-04-12] MEDS: hydrOXYzine HCL 50 MG/ML 1 ML VIAL IM PRN ×2 (06:24→13:38)
[2017-04-12 07:03] LABS: Glucose,Whole Blood 200 mg/dL (75-99)
--- NOTE | 2017-04-12 09:26 | P.NPCON ---
History of Present Illness - Reason for Consult end stage renal disease - History of Present Illness Reason for consultation: End-stage renal disease History of present illness: Patient is a 41-year-old male seen in renal consultation for end-stage renal disease. He is maintained on hemodialysis on a Saturday schedule. Patient states he did have dialysis on Saturday. He has long- standing history of insulin-dependent diabetes mellitus with diabetic gastroparesis requiring frequent hospitalizations. Patient states he took his medications yesterday and subsequently developed severe abdominal cramping with intractable nausea and vomiting. He was not able to keep his medications down. Patient came to the hospital for further care. He feels a little bit better. He did not have breakfast this morning. Denies chest pain or shortness of breath. Denies diarrhea. No fever or chills. Blood pressure was quite elevated in the systolic 200s but is better controlled now. No edema. Vital signs are stable. General: The patient appeared well nourished and normally developed. HEENT: Head exam is unremarkable. Neck is without jugular venous distension. LUNGS: Lungs are clear to auscultation and percussion. Breath sounds decreased. HEART: Rate and Rhythm are regular. First and second heart sounds normal. No murmurs, rubs or gallops. ABDOMEN: Abdominal exam reveals normal bowel sounds. Non-tender and non- distended. No evidence of peritonitis. EXTREMITITES: No clubbing, cyanosis, or edema. Past Medical History Past Medical History: Chest Pain / Angina, Heart Failure, CVA/TIA, Diabetes Mellitus, Dialysis, Eye Disorder, GERD/Reflux, Hypertension, Renal Disease, Seizure Disorder, Skin Disorder, Thyroid Disorder Additional Past Medical History / Comment(s): scattered skin sores melita arms, Chronic renal failure stage IV, hemodialysis M/W/FR-4 hr, past peritoneal dialysis with peritonitis, gastroparesis, cyclic vomiting, chronic abdominal pain, pancreatitis, IDDM type I brittle, heart murmur, diabetic retinopathy bilaterally, retinal detachment with surgery, hypothyroid, hiatal hernia, sinusitis, bronchitis, chronic back pain, anemia, last seizure in 2016. History of Any Multi-Drug Resistant Organisms: None Reported Past Surgical History: Cholecystectomy, Heart Catheterization, Hernia Repair Additional Past Surgical History / Comment(s): bilateral retinal reattachment sx , hemodialysis catheter in Feb 2013- lt arm fistual, L inguinal hernia, 2009 cardiac cath. Past Anesthesia/Blood Transfusion Reactions: No Reported Reaction Additional Past Anesthesia/Blood Transfusion Reaction / Comment(s): mom states "swelling to uvula with gallbladder surgery went into resp arrest due to blocked airway." Past Psychological History: Anxiety, Depression Additional Psychological History / Comment(s): Pt has his mother living with him. He uses no assistive device. He drives. Smoking Status: Former smoker Past Alcohol Use History: None Reported Additional Past Alcohol Use History / Comment(s): STARTED SMOKING AT AGE 18 SMOKED SOCIALLY AND QUIT 1998. Past Drug Use History: None Reported Additional Drug Use History / Comment(s): PAST medical Marijuana use in high school. - Past Family History Father History Unknown: Yes Mother History Unknown: Yes Family Medical History: COPD Additional Family Medical History / Comment(s): Mother has never smoked. Mother' s brother had diabetes and multiple sclerosis. Brother(s) Family Medical History: Diabetes Mellitus Additional Family Medical History / Comment(s): multiple sclerosis Medications and Allergies Home Medications Medication Instructions Recorded Confirmed Type LORazepam [Ativan] 0.5 mg PO DAILY PRN 06/06/14 04/12/17 History amLODIPine BESYLATE [Amlodipine 10 mg PO QAM 06/24/15 04/12/17 History Besylate] Cyclobenzaprine [Flexeril] 5 mg PO TID PRN 02/20/16 04/12/17 History Omeprazole [PriLOSEC] 20 mg PO DAILY 02/20/16 04/12/17 History cloNIDine HCL [Catapres] 0.2 mg PO TID tab 02/20/16 04/12/17 Rx HYDROmorphone [Dilaudid] 2 mg PO DAILY PRN 03/28/16 04/12/17 History hydrALAZINE HCL [Apresoline] 100 mg PO TID 03/28/16 04/12/17 History Lisinopril 5 mg PO DAILY 06/13/16 04/12/17 History Famotidine [Pepcid] 20 mg PO BID PRN 07/13/16 04/12/17 History hydrOXYzine HCL 10 - 50 mg PO TID PRN 11/15/16 04/12/17 History Insulin Glargine [Lantus] 12 unit SQ HS #0 12/05/16 04/12/17 Rx Ondansetron Odt [Zofran ODT] 4 mg PO Q8HR PRN #12 tab 12/05/16 04/12/17 Rx chlorproMAZINE [Thorazine] 25 mg PO BID 12/28/16 04/12/17 History Cinacalcet HCl [Sensipar] 60 mg PO Q2D 01/31/17 04/12/17 History Sevelamer [Renvela] 1,600 mg PO AC-TID 01/31/17 04/12/17 History Docusate Sodium [Dok] 100 mg PO BID PRN 04/12/17 04/12/17 History Allergies Allergy/AdvReac Type Severity Reaction Status Date / Time codeine Allergy Rash/Hives Verified 04/12/17 08:05 metoclopramide HCl AdvReac Muscle Verified 04/12/17 08:05 [From Reglan] Spasms morphine AdvReac Increases Verified 04/12/17 08:05 Pain Physical Exam Vitals: Vital Signs Temp Pulse Pulse Resp BP BP Pulse Ox 04/12/17 08:07 89 14 04/12/17 06:15 97.9 F 89 14 166/93 92 L 04/12/17 03:40 98.5 F 95 14 196/111 98 04/12/17 02:29 91 204/100 04/12/17 01:12 94 187/97 04/12/17 00:39 98.5 F 72 18 200/103 98 Intake and Output 04/11/17 04/12/17 04/12/17 22:59 06:59 14:59 Other: # Voids 0 0 Weight 59 kg 59 kg Patient Weight 04/13/17 06:59 Weight 59 kg Results - Lab Results Most recent lab results Calcium 8.7 mg/dL (8.4-10.2) 04/12/17 01:10 Phosphorus 7.2 mg/dL (2.5-4.5) H 04/12/17 01:23 04/12/17 01:10 04/12/17 01:10 Assessment and Plan Plan: Assessment: #1. End-stage renal disease maintained on hemodialysis on a Saturday schedule. #2. Nausea and vomiting secondary to diabetic gastroparesis. #3. Insulin-dependent diabetes mellitus. #4. Anemia of chronic kidney disease. Rule out iron deficiency. #5. Chronic kidney disease mineral bone disease. #6. Hypertension with chronic kidney disease. Partially due to pain and vomiting. Plan: Hemodialysis today with goal 1 L ultrafiltration. Check phosphorus level. Check iron studies. Add hydralazine 10 mg IV every 4 hours as needed for systolic blood pressure greater than 160. Continue with antiemetics and pain control. Thank you for the consultation. I will continue to follow the patient with you during his hospital stay.
[2017-04-12] MEDS: hydrALAZINE HCL 20 MG/ML 1 ML VIAL IVP PRN (11:31)
[2017-04-12 12:26] LABS: Glucose,Whole Blood 226 mg/dL (75-99)
[2017-04-12] MEDS: INSULIN ASPART 100 UNIT/ML 1 ML 10 ML VIAL SQ SCH ×3 (13:02→21:39)
[2017-04-12] MEDS ORDERED: HYDROmorphone 2 MG TAB PO PRN (13:42)
[2017-04-12] MEDS ORDERED: DOCUSATE 100 MG CAP PO PRN (13:42)
[2017-04-12] MEDS ORDERED: CYCLOBENZAPRINE 5 MG TAB PO PRN (13:42)
[2017-04-12] MEDS ORDERED: LORazepam 0.5 MG TAB PO PRN (13:42)
[2017-04-12] MEDS ORDERED: CINACALCET 30 MG TAB PO SCH (14:00)
[2017-04-12] MEDS: amLODIPine 10 MG TAB PO SCH (14:17)
--- NOTE | 2017-04-12 15:12 | P.HPIM ---
History of Present Illness 41-year-old male seen in renal consultation for end-stage renal disease. He is maintained on hemodialysis on a Saturday schedule. Patient states he did have dialysis on Saturday. He has long-standing history of insulin-dependent diabetes mellitus with diabetic gastroparesis requiring frequent hospitalizations. Patient states he took his medications yesterday and subsequently developed severe abdominal cramping with intractable nausea and vomiting. He was not able to keep his medications down. Patient came to the hospital for further care. He feels a little bit better. He did not have breakfast this morning. Denies chest pain or shortness of breath. Denies diarrhea. No fever or chills. Patient is well-known to me and to nephrology service from his previous hospital visitations patient is able to tolerate diet well now and patient will follow-up with in [facility] for his cyclical vomiting syndrome on Saturday. Review of Systems REVIEW OF SYSTEMS: CONSTITUTIONAL: No fever, no malaise, no fatigue. HEENT: No recent visual problems or hearing problems. Denied any sore throat. CARDIOVASCULAR: No chest pain, orthopnea, PND, no palpitations, no syncope. PULMONARY: No shortness of breath, no cough, no hemoptysis. GASTROINTESTINAL: As mentioned in HPI NEUROLOGICAL: No headaches, no weakness, no numbness. HEMATOLOGICAL: Denies any bleeding or petechiae. GENITOURINARY: Denies any burning micturition, frequency, or urgency. MUSCULOSKELETAL/RHEUMATOLOGICAL: Denies any joint pain, swelling, or any muscle pain. ENDOCRINE: Denies any polyuria or polydipsia. The rest of the 14-point review of systems is negative. Past Medical History Past Medical History: Chest Pain / Angina, Heart Failure, CVA/TIA, Diabetes Mellitus, Dialysis, Eye Disorder, GERD/Reflux, Hypertension, Renal Disease, Seizure Disorder, Skin Disorder, Thyroid Disorder Additional Past Medical History / Comment(s): scattered skin sores melita arms, Chronic renal failure stage IV, hemodialysis M/W/FR-4 hr, past peritoneal dialysis with peritonitis, gastroparesis, cyclic vomiting, chronic abdominal pain, pancreatitis, IDDM type I brittle, heart murmur, diabetic retinopathy bilaterally, retinal detachment with surgery, hypothyroid, hiatal hernia, sinusitis, bronchitis, chronic back pain, anemia, last seizure in 2015. History of Any Multi-Drug Resistant Organisms: None Reported Past Surgical History: Cholecystectomy, Heart Catheterization, Hernia Repair Additional Past Surgical History / Comment(s): bilateral retinal reattachment sx , hemodialysis catheter in Feb 2013- lt arm fistual, L inguinal hernia, 2009 cardiac cath. Past Anesthesia/Blood Transfusion Reactions: No Reported Reaction Additional Past Anesthesia/Blood Transfusion Reaction / Comment(s): mom states "swelling to uvula with gallbladder surgery went into resp arrest due to blocked airway." Past Psychological History: Anxiety, Depression Additional Psychological History / Comment(s): Pt has his mother living with him. He uses no assistive device. He drives. Smoking Status: Former smoker Past Alcohol Use History: None Reported Additional Past Alcohol Use History / Comment(s): STARTED SMOKING AT AGE 18 SMOKED SOCIALLY AND QUIT 1998. Past Drug Use History: None Reported Additional Drug Use History / Comment(s): PAST medical Marijuana use in high school. - Past Family History Father History Unknown: Yes Mother History Unknown: Yes Family Medical History: COPD Additional Family Medical History / Comment(s): Mother has never smoked. Mother' s brother had diabetes and multiple sclerosis. Brother(s) Family Medical History: Diabetes Mellitus Additional Family Medical History / Comment(s): multiple sclerosis Medications and Allergies Home Medications Medication Instructions Recorded Confirmed Type LORazepam [Ativan] 0.5 mg PO DAILY PRN 06/06/14 04/12/17 History amLODIPine BESYLATE [Amlodipine 10 mg PO QAM 06/24/15 04/12/17 History Besylate] Cyclobenzaprine [Flexeril] 5 mg PO TID PRN 02/20/16 04/12/17 History Omeprazole [PriLOSEC] 20 mg PO DAILY 02/20/16 04/12/17 History cloNIDine HCL [Catapres] 0.2 mg PO TID tab 02/20/16 04/12/17 Rx HYDROmorphone [Dilaudid] 2 mg PO DAILY PRN 03/28/16 04/12/17 History hydrALAZINE HCL [Apresoline] 100 mg PO TID 03/28/16 04/12/17 History Lisinopril 5 mg PO DAILY 06/13/16 04/12/17 History Famotidine [Pepcid] 20 mg PO BID PRN 07/13/16 04/12/17 History hydrOXYzine HCL 10 - 50 mg PO TID PRN 11/15/16 04/12/17 History Insulin Glargine [Lantus] 12 unit SQ HS #0 12/05/16 04/12/17 Rx Ondansetron Odt [Zofran ODT] 4 mg PO Q8HR PRN #12 tab 12/05/16 04/12/17 Rx chlorproMAZINE [Thorazine] 25 mg PO BID 12/28/16 04/12/17 History Cinacalcet HCl [Sensipar] 60 mg PO Q2D 01/31/17 04/12/17 History Sevelamer [Renvela] 1,600 mg PO AC-TID 01/31/17 04/12/17 History Docusate Sodium [Dok] 100 mg PO BID PRN 04/12/17 04/12/17 History Allergies Allergy/AdvReac Type Severity Reaction Status Date / Time codeine Allergy Rash/Hives Verified 04/12/17 08:05 metoclopramide HCl AdvReac Muscle Verified 04/12/17 08:05 [From Reglan] Spasms morphine AdvReac Increases Verified 04/12/17 08:05 Pain Physical Exam Vitals: Vital Signs Temp Pulse Pulse Resp BP BP Pulse Ox 04/12/17 08:07 89 14 04/12/17 06:15 97.9 F 89 14 166/93 92 L 04/12/17 03:40 98.5 F 95 14 196/111 98 04/12/17 02:29 91 204/100 04/12/17 01:12 94 187/97 04/12/17 00:39 98.5 F 72 18 200/103 98 Intake and Output 04/12/17 04/12/17 04/12/17 06:59 14:59 22:59 Other: # Voids 0 0 # Bowel Movements 0 Weight 59 kg 59 kg Patient Weight 04/13/17 06:59 Weight 59 kg PHYSICAL EXAMINATION: GENERAL: The patient is alert and oriented x3, not in any acute distress. Well developed, well nourished. HEENT: Pupils are round and equally reacting to light. EOMI. No scleral icterus. No conjunctival pallor. Normocephalic, atraumatic. No pharyngeal erythema. No thyromegaly. CARDIOVASCULAR: S1 and S2 present. No murmurs, rubs, or gallops. PULMONARY: Chest is clear to auscultation, no wheezing or crackles. ABDOMEN: Soft, nontender, nondistended, normoactive bowel sounds. No palpable organomegaly. MUSCULOSKELETAL: No joint swelling or deformity. EXTREMITIES: No cyanosis, clubbing, or pedal edema. NEUROLOGICAL: Gross neurological examination did not reveal any focal deficits. SKIN: No rashes. Results CBC & Chem 7: 04/12/17 01:10 04/12/17 01:10 Labs: Abnormal Lab Results - Last 24 Hours (Table) 04/12/17 04/12/17 04/12/17 Range/Units 01:00 01:10 01:10 RBC 3.28 L (4.30-5.90) m/uL Hgb 9.7 L (13.0-17.5) gm/dL Hct 32.2 L (39.0-53.0) % MCHC 30.0 L (31.0-37.0) g/dL RDW 17.3 H (11.5-15.5) % Plt Count 144 L (150-450) k/uL Chloride 96 L (98-107) mmol/L BUN 53 H (9-20) mg/dL Creatinine 6.80 H* (0.66-1.25) mg/dL Glucose 260 H (74-99) mg/dL POC Glucose (mg/dL) 260 H (75-99) mg/dL Phosphorus (2.5-4.5) mg/dL Alkaline Phosphatase 128 H (38-126) U/L 04/12/17 04/12/17 04/12/17 Range/Units 01:23 07:00 12:21 RBC (4.30-5.90) m/uL Hgb (13.0-17.5) gm/dL Hct (39.0-53.0) % MCHC (31.0-37.0) g/dL RDW (11.5-15.5) % Plt Count (150-450) k/uL Chloride (98-107) mmol/L BUN (9-20) mg/dL Creatinine (0.66-1.25) mg/dL Glucose (74-99) mg/dL POC Glucose (mg/dL) 200 H 226 H (75-99) mg/dL Phosphorus 7.2 H (2.5-4.5) mg/dL Alkaline Phosphatase (38-126) U/L Thrombosis Risk Factor Assmnt - Choose All That Apply Any of the Below Risk Factors Present?: No Other Risk Factors: No Other congenital or acquired thrombophilia - If yes, enter type in comment: No Thrombosis Risk Factor Assessment Level: Very Low Risk Assessment and Plan Plan: -Abdominal pain nausea vomiting: Secondary to gastroparesis patient is on Protonix patient will be resumed on diet advance her diet as tolerated. Patient probably can be discharged tomorrow if he is able to tolerate his diet -End-stage renal disease on hemodialysis: Patient was a valid by nephrology will continue hemodialysis sessions as scheduled. -Highly elevated blood pressures secondary to nausea vomiting patient is unable to take his medications patient will be resumed on his oral medication and patient will be started on oral clear liquid diet. 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
[2017-04-12] MEDS: cloNIDine HCL 0.2 MG TAB PO SCH ×2 (15:55→21:40)
[2017-04-12] MEDS: hydrALAZINE HCL 50 MG TAB PO SCH ×2 (15:55→21:40)
[2017-04-12 16:42] LABS: Iron Saturation 23.36 (15.00-50.00)
[2017-04-12 17:13] LABS: Glucose,Whole Blood 93 mg/dL (75-99)
[2017-04-12] MEDS: SEVELAMER 800 MG TAB PO SCH (17:53)
[2017-04-12] MEDS: ONDANSETRON ODT 4 MG TAB PO PRN (18:37)
[2017-04-12] MEDS ORDERED: INSULIN DETEMIR 100 UNIT/ML 10 ML VIAL SQ SCH (21:00)
[2017-04-12 21:16] LABS: Glucose,Whole Blood 128 mg/dL (75-99)
[2017-04-12] MEDS ORDERED: GELATIN SPONGE,ABSORB (SMALL) 1 EACH SPONGE ONE (21:30)
[2017-04-12] MEDS: chlorproMAZINE 25 MG TAB PO SCH (21:40)
[2017-04-13] MEDS: HYDROmorphone 0.5 MG/0.5 ML SYRINGE IVP PRN ×2 (02:44→06:23)
[2017-04-13] MEDS: hydrALAZINE HCL 20 MG/ML 1 ML VIAL IVP PRN (02:46)
[2017-04-13 06:41] VITALS: BP 151/78; PULSE 80; RESP 16; TEMP 98.4
[2017-04-13 07:19] LABS: Glucose,Whole Blood 176 mg/dL (75-99)
[2017-04-13] MEDS: chlorproMAZINE 25 MG TAB PO SCH (07:40)
[2017-04-13] MEDS: hydrALAZINE HCL 50 MG TAB PO SCH (07:40)
[2017-04-13] MEDS: SEVELAMER 800 MG TAB PO SCH (07:40)
[2017-04-13] MEDS: amLODIPine 10 MG TAB PO SCH (07:40)
[2017-04-13] MEDS: cloNIDine HCL 0.2 MG TAB PO SCH (07:40)
[2017-04-13] MEDS: ONDANSETRON ODT 4 MG TAB PO PRN (07:41)
[2017-04-13] MEDS: INSULIN ASPART 100 UNIT/ML 1 ML 10 ML VIAL SQ SCH (07:43)
[2017-04-13] MEDS ORDERED: NON-FORMULARY DRUG (Omeprazole 20 MG) PO SCH (09:00)
[2017-04-13] MEDS ORDERED: PANTOPRAZOLE 40 MG/10 ML VIAL IVP SCH (09:00)
[2017-04-13] MEDS ORDERED: LISINOPRIL 5 MG TAB PO SCH (09:00)
--- NOTE | 2017-04-13 10:30 | P.DS ---
Providers Date of admission: 04/12/17 02:33 Attending physician: Cliff Balbuena Consults: 04/12/17 07:57 Consult Physician Routine Consulting Provider: Damien Allred Consult Reason/Comments: known to you, HD Do you want consulting provider notified?: Yes Primary care physician: Jemima [facility] [employer] [facility] Course: 41-year-old male seen in renal consultation for end-stage renal disease. He is maintained on hemodialysis on a Saturday schedule. Patient states he did have dialysis on Saturday. He has long-standing history of insulin-dependent diabetes mellitus with diabetic gastroparesis requiring frequent hospitalizations. Patient states he took his medications yesterday and subsequently developed severe abdominal cramping with intractable nausea and vomiting. He was not able to keep his medications down. Patient came to the hospital for further care. He feels a little bit better. He did not have breakfast this morning. Denies chest pain or shortness of breath. Denies diarrhea. No fever or chills. 05/11/2017 Patient has significant improvement today. Patient will be discharged today patient is able to tolerate diet. PHYSICAL EXAMINATION: GENERAL: The patient is alert and oriented x3, not in any acute distress. Well developed, well nourished. HEENT: Pupils are round and equally reacting to light. EOMI. No scleral icterus. No conjunctival pallor. Normocephalic, atraumatic. No pharyngeal erythema. No thyromegaly. CARDIOVASCULAR: S1 and S2 present. No murmurs, rubs, or gallops. PULMONARY: Chest is clear to auscultation, no wheezing or crackles. ABDOMEN: Soft, nontender, nondistended, normoactive bowel sounds. No palpable organomegaly. MUSCULOSKELETAL: No joint swelling or deformity. EXTREMITIES: No cyanosis, clubbing, or pedal edema. NEUROLOGICAL: Gross neurological examination did not reveal any focal deficits. SKIN: No rashes. 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 and gastroparesis: Patient will be resumed on his insulin -Cyclical vomiting syndrome and gastroparesis -Metabolic bone disease for which patient is on 2 phosphate binders Patient Condition at Discharge: Serious Plan - Discharge Summary Discharge Rx Participant: No New Discharge Prescriptions: New Sucralfate [Carafate] 1 gm PO BID #100 ml No Action LORazepam [Ativan] 0.5 mg PO DAILY PRN PRN Reason: Anxiety amLODIPine BESYLATE [Amlodipine Besylate] 10 mg PO QAM Omeprazole [PriLOSEC] 20 mg PO DAILY Cyclobenzaprine [Flexeril] 5 mg PO TID PRN PRN Reason: Muscle Spasm cloNIDine HCL [Catapres] 0.2 mg PO TID tab hydrALAZINE HCL [Apresoline] 100 mg PO TID HYDROmorphone [Dilaudid] 2 mg PO DAILY PRN PRN Reason: Pain Lisinopril 5 mg PO DAILY Famotidine [Pepcid] 20 mg PO BID PRN PRN Reason: GERD hydrOXYzine HCL 10 - 50 mg PO TID PRN PRN Reason: Itching Insulin Glargine [Lantus] 12 unit SQ HS #0 Ondansetron Odt [Zofran ODT] 4 mg PO Q8HR PRN #12 tab PRN Reason: Nausea chlorproMAZINE [Thorazine] 25 mg PO BID Sevelamer [Renvela] 1,600 mg PO AC-TID Cinacalcet HCl [Sensipar] 60 mg PO Q2D Docusate Sodium [Dok] 100 mg PO BID PRN PRN Reason: Constipation Gabapentin [Neurontin] 200 mg PO DIRECTED Discharge Medication List LORazepam [Ativan] 0.5 mg PO DAILY PRN 06/06/14 [History] amLODIPine BESYLATE [Amlodipine Besylate] 10 mg PO QAM 06/24/15 [History] Cyclobenzaprine [Flexeril] 5 mg PO TID PRN 02/20/16 [History] Omeprazole [PriLOSEC] 20 mg PO DAILY 02/20/16 [History] cloNIDine HCL [Catapres] 0.2 mg PO TID tab 02/20/16 [Rx] HYDROmorphone [Dilaudid] 2 mg PO DAILY PRN 03/28/16 [History] hydrALAZINE HCL [Apresoline] 100 mg PO TID 03/28/16 [History] Lisinopril 5 mg PO DAILY 06/13/16 [History] Famotidine [Pepcid] 20 mg PO BID PRN 07/13/16 [History] hydrOXYzine HCL 10 - 50 mg PO TID PRN 11/15/16 [History] Insulin Glargine [Lantus] 12 unit SQ HS #0 12/05/16 [Rx] Ondansetron Odt [Zofran ODT] 4 mg PO Q8HR PRN #12 tab 12/05/16 [Rx] chlorproMAZINE [Thorazine] 25 mg PO BID 12/28/16 [History] Cinacalcet HCl [Sensipar] 60 mg PO Q2D 01/31/17 [History] Sevelamer [Renvela] 1,600 mg PO AC-TID 01/31/17 [History] Docusate Sodium [Dok] 100 mg PO BID PRN 04/12/17 [History] Gabapentin [Neurontin] 200 mg PO DIRECTED 04/12/17 [History] Sucralfate [Carafate] 1 gm PO BID #100 ml 04/13/17 [Rx] Follow up Appointment(s)/Referral(s): Kala Onofre MD [Primary Care Provider] - 3 Days Discharge Disposition: HOME SELF-CARE
== END 2017-04-13 11:13 | disposition home or self-care (01) | DRG 73 ==
LOC: EC 00:32 → 4MS4W 02:33
PROVIDERS: ADMIT Internal Medicine; ATTEND Internal Medicine
DX: E10.43 Type 1 diabetes mellitus with diabetic autonomic (poly)neuropathy (principal); N18.6 End stage renal disease; I13.2 Hypertensive heart and chronic kidney disease with heart failure and with stage 5 chronic kidney disease, or end stage renal disease; E10.22 Type 1 diabetes mellitus with diabetic chronic kidney disease; E88.89 Other specified metabolic disorders; K31.84 Gastroparesis; I50.9 Heart failure, unspecified; K21.9 Gastro-esophageal reflux disease without esophagitis; G40.909 Epilepsy, unspecified, not intractable, without status epilepticus; E03.9 Hypothyroidism, unspecified; E10.319 Type 1 diabetes mellitus with unspecified diabetic retinopathy without macular edema; F41.9 Anxiety disorder, unspecified; F32.9 Major depressive disorder, single episode, unspecified; D63.1 Anemia in chronic kidney disease; Z87.19 Personal history of other diseases of the digestive system; Z90.49 Acquired absence of other specified parts of digestive tract; Z79.899 Other long term (current) drug therapy; Z82.5 Family history of asthma and other chronic lower respiratory diseases; Z83.3 Family history of diabetes mellitus; Z82.0 Family history of epilepsy and other diseases of the nervous system; Z79.891 Long term (current) use of opiate analgesic; Z88.6 Allergy status to analgesic agent; Z87.891 Personal history of nicotine dependence; Z86.73 Personal history of transient ischemic attack (TIA), and cerebral infarction without residual deficits; Z79.4 Long term (current) use of insulin; Z99.2 Dependence on renal dialysis
CPT/HCPCS: 36415; 74019; 80053; 82009; 82150; 82728; 83540; 83550; 83605; 83690; 84100; 85025; 90935; 93005; 96361; 96372; 96374; 96375; 99285

== ENCOUNTER 2017-05-24 05:51 | Inpatient (IN) | payer MEDICARE, OTHER ==
[2017-05-24] MEDS ORDERED: ONDANSETRON 4 MG/2 ML VIAL IVP STA (06:04)
[2017-05-24] MEDS ORDERED: SODIUM CHLORIDE 0.9% 1,000 ML IV STA (06:04)
[2017-05-24] MEDS ORDERED: fentaNYL (PF) 50 MCG/ML 2 ML AMP IV STA (06:04)
[2017-05-24] MEDS ORDERED: LORazepam 2 MG/ML INJ IV STA (06:05)
[2017-05-24] MEDS ORDERED: diphenhydrAMINE 50 MG/ML 1 ML VIAL IVP STA (06:05)
--- NOTE | 2017-05-24 06:06 | ED ---
General Adult HPI - General Stated complaint: Lethargic Time Seen by Provider: 05/24/17 06:02 Source: RN notes reviewed, old records reviewed - History of Present Illness Initial comments: This is a 41-year-old male the ER for evaluation of abdominal pain severe pain everywhere, patient will lose emergency room for similar complaints. No recent travel history no sick contacts. No fevers. Mild nausea no vomiting. No recent diarrhea. Patient missed dialysis today secondary to somnolence and not acting appropriately. After missing dialysis patient was brought to ER - Related Data Home Medications Medication Instructions Recorded Confirmed LORazepam [Ativan] 0.5 mg PO DAILY PRN 06/06/14 04/12/17 amLODIPine BESYLATE [Amlodipine 10 mg PO QAM 06/24/15 04/12/17 Besylate] Cyclobenzaprine [Flexeril] 5 mg PO TID PRN 02/20/16 04/12/17 Omeprazole [PriLOSEC] 20 mg PO DAILY 02/20/16 04/12/17 HYDROmorphone [Dilaudid] 2 mg PO DAILY PRN 03/28/16 04/12/17 hydrALAZINE HCL [Apresoline] 100 mg PO TID 03/28/16 04/12/17 Lisinopril 5 mg PO DAILY 06/13/16 04/12/17 Famotidine [Pepcid] 20 mg PO BID PRN 07/13/16 04/12/17 hydrOXYzine HCL 10 - 50 mg PO TID PRN 11/15/16 04/12/17 chlorproMAZINE [Thorazine] 25 mg PO BID 12/28/16 04/12/17 Cinacalcet HCl [Sensipar] 60 mg PO Q2D 01/31/17 04/12/17 Sevelamer [Renvela] 1,600 mg PO AC-TID 01/31/17 04/12/17 Docusate Sodium [Dok] 100 mg PO BID PRN 04/12/17 04/12/17 Gabapentin [Neurontin] 200 mg PO DIRECTED 04/12/17 04/12/17 Previous Rx's Medication Instructions Recorded cloNIDine HCL [Catapres] 0.2 mg PO TID tab 02/20/16 Insulin Glargine [Lantus] 12 unit SQ HS #0 12/05/16 Ondansetron Odt [Zofran ODT] 4 mg PO Q8HR PRN #12 tab 12/05/16 Sucralfate [Carafate] 1 gm PO BID #100 ml 04/13/17 Allergies Allergy/AdvReac Type Severity Reaction Status Date / Time codeine Allergy Rash/Hives Verified 04/12/17 08:05 metoclopramide HCl AdvReac Muscle Verified 04/12/17 08:05 [From Reglan] Spasms morphine AdvReac Increases Verified 04/12/17 08:05 Pain Review of Systems ROS Statement: Those systems with pertinent positive or pertinent negative responses have been documented in the HPI. ROS Other: All systems not noted in ROS Statement are negative. Past Medical History Past Medical History: Chest Pain / Angina, Heart Failure, CVA/TIA, Diabetes Mellitus, Dialysis, Eye Disorder, GERD/Reflux, Hypertension, Renal Disease, Seizure Disorder, Skin Disorder, Thyroid Disorder Additional Past Medical History / Comment(s): scattered skin sores melita arms, Chronic renal failure stage IV, hemodialysis M/W/FR-4 hr, past peritoneal dialysis with peritonitis, gastroparesis, cyclic vomiting, chronic abdominal pain, pancreatitis, IDDM type I brittle, heart murmur, diabetic retinopathy bilaterally, retinal detachment with surgery, hypothyroid, hiatal hernia, sinusitis, bronchitis, chronic back pain, anemia, last seizure in 2015. History of Any Multi-Drug Resistant Organisms: None Reported Past Surgical History: Cholecystectomy, Heart Catheterization, Hernia Repair Additional Past Surgical History / Comment(s): bilateral retinal reattachment sx , hemodialysis catheter in Feb 2013- lt arm fistual, L inguinal hernia, 2009 cardiac cath. Past Anesthesia/Blood Transfusion Reactions: No Reported Reaction Additional Past Anesthesia/Blood Transfusion Reaction / Comment(s): mom states "swelling to uvula with gallbladder surgery went into resp arrest due to blocked airway." Past Psychological History: Anxiety, Depression Additional Psychological History / Comment(s): Pt has his mother living with him. He uses no assistive device. He drives. Smoking Status: Former smoker Past Alcohol Use History: None Reported Additional Past Alcohol Use History / Comment(s): STARTED SMOKING AT AGE 18 SMOKED SOCIALLY AND QUIT 1998. Past Drug Use History: None Reported Additional Drug Use History / Comment(s): PAST medical Marijuana use in high school. - Past Family History Father History Unknown: Yes Mother History Unknown: Yes Family Medical History: COPD Additional Family Medical History / Comment(s): Mother has never smoked. Mother' s brother had diabetes and multiple sclerosis. Brother(s) Family Medical History: Diabetes Mellitus Additional Family Medical History / Comment(s): multiple sclerosis General Exam General appearance: alert, in no apparent distress Head exam: Present: atraumatic, normocephalic, normal inspection Eye exam: Present: normal appearance, PERRL, EOMI. Absent: scleral icterus, conjunctival injection, periorbital swelling ENT exam: Present: normal exam, mucous membranes moist Neck exam: Present: normal inspection. Absent: tenderness, meningismus, lymphadenopathy Respiratory exam: Present: normal lung sounds bilaterally. Absent: respiratory distress, wheezes, rales, rhonchi, stridor Cardiovascular Exam: Present: regular rate, normal rhythm, normal heart sounds. Absent: systolic murmur, diastolic murmur, rubs, gallop, clicks GI/Abdominal exam: Present: soft, normal bowel sounds. Absent: distended, tenderness, guarding, rebound, rigid Extremities exam: Present: normal inspection, full ROM, normal capillary refill. Absent: tenderness, pedal edema, joint swelling, calf tenderness Back exam: Present: normal inspection Neurological exam: Present: alert, oriented X3, CN II-XII intact Psychiatric exam: Present: normal affect, normal mood Skin exam: Present: warm, dry, intact, normal color. Absent: rash Course Vital Signs 05/24/17 05/24/17 06:01 06:49 Temperature 97.2 F L Pulse Rate 73 72 Respiratory 16 17 Rate Blood Pressure 204/99 188/92 O2 Sat by Pulse 93 L 100 Oximetry - Reevaluation(s) Reevaluation #1: 05/24/17 06:06 Medical records reviewed EKG Findings - EKG Comments: EKG Findings:: EKG shows normal sinus rhythm rate of 72, ID 136, QRS 80, QTC 483 Medical Decision Making - Lab Data Result diagrams: 05/24/17 06:29 Lab Results 05/24/17 05/24/17 Range/Units 06:29 06:29 Sodium 144 (137-145) mmol/L Potassium 6.1 H (3.5-5.1) mmol/L Chloride 88 L (98-107) mmol/L Carbon Dioxide 25 (22-30) mmol/L Anion Gap 31 mmol/L BUN 40 H (9-20) mg/dL Creatinine 8.88 H* (0.66-1.25) mg/dL Est GFR (CKD-EPI)AfAm 8 (>60 ml/min/1.73 sqM) Est GFR (CKD-EPI)NonAf 7 (>60 ml/min/1.73 sqM) Glucose 241 H (74-99) mg/dL Calcium 10.2 (8.4-10.2) mg/dL Phosphorus 7.7 H (2.5-4.5) mg/dL Magnesium 2.6 H (1.6-2.3) mg/dL Total Bilirubin 1.4 H (0.2-1.3) mg/dL AST 60 H (17-59) U/L ALT 8 L (21-72) U/L Alkaline Phosphatase 304 H (38-126) U/L Total Creatine Kinase 85 (55-170) U/L Albumin 5.6 H (3.5-5.0) g/dL Disposition Clinical Impression: Intractable vomiting, Hypertension, poor control, Chronic kidney failure Disposition: ADMITTED IP TO THIS HOSP Condition: Fair Referrals: Kala Onofre MD [Primary Care Provider] - 1-2 days
[2017-05-24] MEDS ORDERED: LABETALOL 5 MG/ML VIAL MDV IVP STA (06:42)
[2017-05-24 06:53] LABS: Albumin 5.6 g/dL (3.5-5.0); Calcium 10.2 mg/dL (8.4-10.2); Magnesium 2.6 mg/dL (1.6-2.3); Phosphorus 7.7 mg/dL (2.5-4.5); Total Bilirubin 1.4 mg/dL (0.2-1.3)
[2017-05-24 06:58] LABS: Potassium 6.1 mmol/L (3.5-5.1)
[2017-05-24] MEDS ORDERED: SODIUM CHLORIDE 0.9% 1,000 ML IV ONE (07:04)
[2017-05-24 07:07] LABS: Total Protein 11.4 g/dL (6.3-8.2)
[2017-05-24 07:14] LABS: Troponin I 0.018 ng/mL (0.000-0.034)
[2017-05-24 07:23] LABS: Anisocytosis Slight; Basophils # (A) 0.1 k/uL (0-0.2); Basophils % (A) 1 %; Creatine Kinase MB 3.4 ng/mL (0.0-2.4); Eosinophils # (A) 0.4 k/uL (0-0.7); Eosinophils % (A) 4 %; Lymphocytes # (A) 0.8 k/uL (1.0-4.8); Lymphocytes % (A) 9 %; MCH 30.1 pg (25.0-35.0); MCHC 32.1 g/dL (31.0-37.0); MCV 93.7 fL (80.0-100.0); Mean Platelet Volume 7.5; Monocytes # (A) 0.5 k/uL (0-1.0); Monocytes % (A) 6 %; Neutrophils # (A) 6.5 k/uL (1.3-7.7); Neutrophils % (A) 78 %; Platelet Count 204 k/uL (150-450); RDW 16.7 % (11.5-15.5); WBC 8.3 k/uL (3.8-10.6)
[2017-05-24 07:25] LABS: HCT 55.3 % (39.0-53.0); HGB 17.7 gm/dL (13.0-17.5)
[2017-05-24] MEDS ORDERED: ONDANSETRON 4 MG/2 ML VIAL IVP PRN (08:50)
[2017-05-24] MEDS ORDERED: amLODIPine 5 MG TAB PO SCH (09:00)
[2017-05-24] MEDS ORDERED: PANTOPRAZOLE 40 MG/10 ML VIAL IVP SCH (09:00)
[2017-05-24] MEDS ORDERED: GABAPENTIN 100 MG CAP PO SCH (09:00)
--- NOTE | 2017-05-24 09:35 | P.NPCON ---
History of Present Illness - Reason for Consult end stage renal disease - History of Present Illness Reason for consultation: End-stage renal disease History of present illness: Patient is a 41-year-old male seen in renal consultation for end-stage renal disease. Patient is maintained on hemodialysis on a Saturday schedule via left upper extremity AV fistula. Patient has long-standing history of insulin dependent diabetes mellitus with diabetic gastroparesis. He underwent gastric pacemaker on 05/17/2017 at [facility]. He was maintained on a clear liquid diet which she was tolerating well up until yesterday when he developed intractable nausea and dry heaving. Patient is also more confused than usual. He is awake and does answer to verbal commands. His last hemodialysis treatment was on May 22. His dry heaving is improved overall. Potassium was 6.1 but it appears to be a hemolyzed sample. Blood pressures were on the higher side but improved with pain control. Home antihypertensives have also been resumed. Vital signs are stable. General: The patient appeared well nourished and normally developed. HEENT: Head exam is unremarkable. Neck is without jugular venous distension. LUNGS: Lungs are clear to auscultation and percussion. Breath sounds decreased. HEART: Rate and Rhythm are regular. First and second heart sounds normal. No murmurs, rubs or gallops. ABDOMEN: Abdominal exam reveals normal bowel sounds. Non-tender and non- distended. No evidence of peritonitis. EXTREMITITES: No clubbing, cyanosis, or edema. Past Medical History Past Medical History: Chest Pain / Angina, Heart Failure, Diabetes Mellitus, Dialysis, Eye Disorder, GERD/Reflux, Hypertension, Renal Disease, Seizure Disorder, Thyroid Disorder Additional Past Medical History / Comment(s): IDDM type I/brittle, chronic abdominal pain, gastroparesis, cyclic vomiting and had gastric pacemaker inserted 05/17/17 at [facility]-is on a full liquid diet and has not had a bowel movement since surgery, chronic renal failure stage IV, hemodialysis M/W/FR-4 hr , past peritoneal dialysis with peritonitis, pancreatitis, heart murmur, diabetic retinopathy bilaterally, retinal detachment with surgery, bilateral hands, legs and feet diabetic neuropathy, hypothyroid, hiatal hernia, sinusitis , bronchitis, chronic back pain, anemia, last seizure in 2015. History of Any Multi-Drug Resistant Organisms: None Reported Past Surgical History: Cholecystectomy, Heart Catheterization, Hernia Repair Additional Past Surgical History / Comment(s): 05/17/17 Gastric pacemaker inserted at [facility], bilateral retinal reattachment sx, hemodialysis catheter in Feb 2013- lt arm fistual, L inguinal hernia, 2009 cardiac cath. Past Anesthesia/Blood Transfusion Reactions: No Reported Reaction Additional Past Anesthesia/Blood Transfusion Reaction / Comment(s): mom states "swelling to uvula with gallbladder surgery went into resp arrest due to blocked airway." Smoking Status: Former smoker - Past Family History Father History Unknown: Yes Mother History Unknown: Yes Family Medical History: COPD Additional Family Medical History / Comment(s): Mother has never smoked. Mother' s brother had diabetes and multiple sclerosis. Brother(s) Family Medical History: Diabetes Mellitus Additional Family Medical History / Comment(s): multiple sclerosis Medications and Allergies Home Medications Medication Instructions Recorded Confirmed Type LORazepam [Ativan] 1 mg PO DAILY PRN 06/06/14 05/24/17 History amLODIPine BESYLATE [Amlodipine 10 mg PO QAM 06/24/15 05/24/17 History Besylate] Cyclobenzaprine [Flexeril] 10 mg PO TID PRN 02/20/16 05/24/17 History Omeprazole [PriLOSEC] 20 mg PO DAILY 02/20/16 05/24/17 History HYDROmorphone [Dilaudid] 2 mg PO DAILY PRN 03/28/16 05/24/17 History hydrALAZINE HCL [Apresoline] 100 mg PO QID 03/28/16 05/24/17 History Lisinopril 5 mg PO DAILY 06/13/16 05/24/17 History hydrOXYzine HCL 10 mg PO Q8H PRN 11/15/16 05/24/17 History Insulin Glargine [Lantus] 12 unit SQ HS #0 12/05/16 05/24/17 Rx chlorproMAZINE [Thorazine] 25 mg PO BID 12/28/16 05/24/17 History Cinacalcet HCl [Sensipar] 60 mg PO DAILY 01/31/17 05/24/17 History Sevelamer [Renvela] 800 mg PO AC-TID 01/31/17 05/24/17 History Gabapentin [Neurontin] 200 mg PO MOWEFR 04/12/17 05/24/17 History Sucralfate [Carafate] 1 gm PO BID #100 ml 04/13/17 05/24/17 Rx Carvedilol [Coreg] 25 mg PO BID 05/24/17 05/24/17 History Docusate [Colace] 100 mg PO DAILY 05/24/17 05/24/17 History INSULIN LISPRO (humaLOG) [humaLOG] See Protocol SQ DIRECTED 05/24/17 History Ondansetron Odt [Zofran ODT] 4 mg PO DAILY PRN 05/24/17 05/24/17 History Neela-Cherelle 1 tab PO DAILY 05/24/17 05/24/17 History Sodium Bicarbonate Tab 650 mg PO TID 05/24/17 05/24/17 History Vitamin B Complex 2 cap PO DAILY 05/24/17 05/24/17 History Allergies Allergy/AdvReac Type Severity Reaction Status Date / Time codeine Allergy Rash/Hives Verified 05/24/17 08:56 metoclopramide HCl AdvReac Muscle Verified 05/24/17 08:56 [From Reglan] Spasms morphine AdvReac Increases Verified 05/24/17 08:56 Pain Physical Exam Vitals: Vital Signs Temp Pulse Resp BP Pulse Ox 05/24/17 07:49 97.6 F 65 16 127/71 100 05/24/17 07:06 154/78 05/24/17 06:49 72 17 188/92 100 05/24/17 06:01 97.2 F L 73 16 204/99 93 L Intake and Output 05/23/17 05/24/17 05/24/17 22:59 06:59 14:59 Other: Weight 58.967 kg Results - Lab Results Most recent lab results Calcium 10.2 mg/dL (8.4-10.2) 05/24/17 06:29 Phosphorus 7.7 mg/dL (2.5-4.5) H 05/24/17 06:29 Magnesium 2.6 mg/dL (1.6-2.3) H 05/24/17 06:29 05/24/17 06:29 05/24/17 06:29 Assessment and Plan Plan: Assessment: #1. End-stage renal disease maintained on hemodialysis on a Saturday schedule via left approximately AV fistula. #2. Hyperkalemia secondary to chronic kidney disease. Also hemolyzed sample. #3. Abdominal pain with nausea and dry heaving. Concern for gastric pacemaker malfunction. #4. Chronic kidney disease mineral bone disease maintained on Renvela. #5. Hypertension with chronic kidney disease. Further exacerbated by pain and vomiting. #6. Insulin-dependent diabetes mellitus. Plan: Hemodialysis today. Resume Renvela with meals. Home antihypertensives have been resumed. Maintain PPI and antiemetics. Gastric pacemakers assessment pending. Thank you for the consultation. I will continue to follow the patient with you during his hospital stay.
[2017-05-24] MEDS: traMADol 50 MG TAB PO SCH ×2 (10:35→20:58)
[2017-05-24 11:54] LABS: Glucose,Whole Blood 165 mg/dL (75-99)
[2017-05-24 11:59] VITALS: RESP 18
[2017-05-24] MEDS ORDERED: amLODIPine 5 MG TAB PO STA (12:25)
[2017-05-24] MEDS ORDERED: ONDANSETRON ODT 4 MG TAB PO PRN (12:29)
[2017-05-24] MEDS ORDERED: CYCLOBENZAPRINE 10 MG TAB PO PRN (12:29)
[2017-05-24] MEDS ORDERED: hydrOXYzine HCL 10 MG TAB PO PRN (12:29)
[2017-05-24] MEDS ORDERED: SEVELAMER 800 MG TAB PO SCH (12:30)
--- NOTE | 2017-05-24 12:44 | P.DS ---
Providers Date of admission: 05/24/17 07:04 Attending physician: Cristóbal Juan Consults: 05/24/17 07:04 Consult Physician Routine Consulting Provider: Gisella Rush Consult Reason/Comments: known Do you want consulting provider notified?: Yes Primary care physician: Jemima Armendariz [facility] Course: Please refer to my HPI Patient Condition at Discharge: Fair Plan - Discharge Summary Discharge Rx Participant: No New Discharge Prescriptions: Discontinued Lisinopril 5 mg PO DAILY No Action LORazepam [Ativan] 1 mg PO DAILY PRN PRN Reason: Anxiety amLODIPine BESYLATE [Amlodipine Besylate] 10 mg PO QAM Omeprazole [PriLOSEC] 20 mg PO DAILY Cyclobenzaprine [Flexeril] 10 mg PO TID PRN PRN Reason: Muscle Spasm hydrALAZINE HCL [Apresoline] 100 mg PO QID HYDROmorphone [Dilaudid] 2 mg PO DAILY PRN PRN Reason: Pain hydrOXYzine HCL 10 mg PO Q8H PRN PRN Reason: Itching Insulin Glargine [Lantus] 12 unit SQ HS #0 chlorproMAZINE [Thorazine] 25 mg PO BID Sevelamer [Renvela] 800 mg PO AC-TID Cinacalcet HCl [Sensipar] 60 mg PO DAILY Gabapentin [Neurontin] 200 mg PO MOWEFR Sucralfate [Carafate] 1 gm PO BID #100 ml Sodium Bicarbonate Tab 650 mg PO TID Neela-Cherelle 1 tab PO DAILY Docusate [Colace] 100 mg PO DAILY Carvedilol [Coreg] 25 mg PO BID Vitamin B Complex 2 cap PO DAILY Ondansetron Odt [Zofran ODT] 4 mg PO DAILY PRN PRN Reason: Nausea INSULIN LISPRO (humaLOG) [humaLOG] See Protocol SQ DIRECTED Discharge Medication List LORazepam [Ativan] 1 mg PO DAILY PRN 06/06/14 [History] amLODIPine BESYLATE [Amlodipine Besylate] 10 mg PO QAM 06/24/15 [History] Cyclobenzaprine [Flexeril] 10 mg PO TID PRN 02/20/16 [History] Omeprazole [PriLOSEC] 20 mg PO DAILY 02/20/16 [History] HYDROmorphone [Dilaudid] 2 mg PO DAILY PRN 03/28/16 [History] hydrALAZINE HCL [Apresoline] 100 mg PO QID 03/28/16 [History] hydrOXYzine HCL 10 mg PO Q8H PRN 11/15/16 [History] Insulin Glargine [Lantus] 12 unit SQ HS #0 12/05/16 [Rx] chlorproMAZINE [Thorazine] 25 mg PO BID 12/28/16 [History] Cinacalcet HCl [Sensipar] 60 mg PO DAILY 01/31/17 [History] Sevelamer [Renvela] 800 mg PO AC-TID 01/31/17 [History] Gabapentin [Neurontin] 200 mg PO MOWEFR 04/12/17 [History] Sucralfate [Carafate] 1 gm PO BID #100 ml 04/13/17 [Rx] Carvedilol [Coreg] 25 mg PO BID 05/24/17 [History] Docusate [Colace] 100 mg PO DAILY 05/24/17 [History] INSULIN LISPRO (humaLOG) [humaLOG] See Protocol SQ DIRECTED 05/24/17 [History ] Ondansetron Odt [Zofran ODT] 4 mg PO DAILY PRN 05/24/17 [History] Neela-Cheerlle 1 tab PO DAILY 05/24/17 [History] Sodium Bicarbonate Tab 650 mg PO TID 05/24/17 [History] Vitamin B Complex 2 cap PO DAILY 05/24/17 [History] Follow up Appointment(s)/Referral(s): Kala Onofre MD [Primary Care Provider] - 3 Days Discharge Disposition: HOME SELF-CARE
--- NOTE | 2017-05-24 12:44 | P.HPIM ---
History of Present Illness 41-year-old male seen in renal consultation for end-stage renal disease. Patient is maintained on hemodialysis on a Saturday schedule via left upper extremity AV fistula. Patient has long-standing history of insulin dependent diabetes mellitus with diabetic gastroparesis. Patient given of the diffuse abdominal pain nausea vomiting from his gastroparesis all of these symptoms improved patient potassium is highly elevated to 6.1 and patient will receive hemodialysis. Lisinopril will be held because of his elevated potassium patient wanted to be discharged will make him walk around after the dialysis if he is doing okay and vitals are okay as his nausea vomiting abdominal pain improved patient will be discharged home after hemodialysis He underwent gastric pacemaker on 05/17/2017 at [facility]. Potassium appears to be hemolyzed Review of Systems REVIEW OF SYSTEMS: CONSTITUTIONAL: No fever, no malaise, no fatigue. HEENT: No recent visual problems or hearing problems. Denied any sore throat. CARDIOVASCULAR: No chest pain, orthopnea, PND, no palpitations, no syncope. PULMONARY: No shortness of breath, no cough, no hemoptysis. GASTROINTESTINAL: Mentioned in HPI NEUROLOGICAL: No headaches, no weakness, no numbness. HEMATOLOGICAL: Denies any bleeding or petechiae. GENITOURINARY: Denies any burning micturition, frequency, or urgency. MUSCULOSKELETAL/RHEUMATOLOGICAL: Denies any joint pain, swelling, or any muscle pain. ENDOCRINE: Denies any polyuria or polydipsia. The rest of the 14-point review of systems is negative. Past Medical History Past Medical History: Chest Pain / Angina, Heart Failure, Diabetes Mellitus, Dialysis, Eye Disorder, GERD/Reflux, Hypertension, Renal Disease, Seizure Disorder, Thyroid Disorder Additional Past Medical History / Comment(s): IDDM type I/brittle, chronic abdominal pain, gastroparesis, cyclic vomiting and had gastric pacemaker inserted 05/17/[address] [facility]-is on a full liquid diet and has not had a bowel movement since surgery, chronic renal failure stage IV, hemodialysis M/W/FR-4 hr , past peritoneal dialysis with peritonitis, pancreatitis, heart murmur, diabetic retinopathy bilaterally, retinal detachment with surgery, bilateral hands, legs and feet diabetic neuropathy, hypothyroid, hiatal hernia, sinusitis , bronchitis, chronic back pain, anemia, last seizure in 2015. History of Any Multi-Drug Resistant Organisms: None Reported Past Surgical History: Cholecystectomy, Heart Catheterization, Hernia Repair Additional Past Surgical History / Comment(s): 05/17/17 [address] inserted at [facility], bilateral retinal reattachment sx, hemodialysis catheter in Feb 2013- lt arm fistual, L inguinal hernia, 2009 cardiac cath. Past Anesthesia/Blood Transfusion Reactions: No Reported Reaction Additional Past Anesthesia/Blood Transfusion Reaction / Comment(s): mom states "swelling to uvula with gallbladder surgery went into resp arrest due to blocked airway." Smoking Status: Former smoker - Past Family History Father History Unknown: Yes Mother History Unknown: Yes Family Medical History: COPD Additional Family Medical History / Comment(s): Mother has never smoked. Mother' s brother had diabetes and multiple sclerosis. Brother(s) Family Medical History: Diabetes Mellitus Additional Family Medical History / Comment(s): multiple sclerosis Medications and Allergies Home Medications Medication Instructions Recorded Confirmed Type LORazepam [Ativan] 1 mg PO DAILY PRN 06/06/14 05/24/17 History amLODIPine BESYLATE [Amlodipine 10 mg PO QAM 06/24/15 05/24/17 History Besylate] Cyclobenzaprine [Flexeril] 10 mg PO TID PRN 02/20/16 05/24/17 History Omeprazole [PriLOSEC] 20 mg PO DAILY 02/20/16 05/24/17 History HYDROmorphone [Dilaudid] 2 mg PO DAILY PRN 03/28/16 05/24/17 History hydrALAZINE HCL [Apresoline] 100 mg PO QID 03/28/16 05/24/17 History hydrOXYzine HCL 10 mg PO Q8H PRN 11/15/16 05/24/17 History Insulin Glargine [Lantus] 12 unit SQ HS #0 12/05/16 05/24/17 Rx chlorproMAZINE [Thorazine] 25 mg PO BID 12/28/16 05/24/17 History Cinacalcet HCl [Sensipar] 60 mg PO DAILY 01/31/17 05/24/17 History Sevelamer [Renvela] 800 mg PO AC-TID 01/31/17 05/24/17 History Gabapentin [Neurontin] 200 mg PO MOWEFR 04/12/17 05/24/17 History Sucralfate [Carafate] 1 gm PO BID #100 ml 04/13/17 05/24/17 Rx Carvedilol [Coreg] 25 mg PO BID 05/24/17 05/24/17 History Docusate [Colace] 100 mg PO DAILY 05/24/17 05/24/17 History INSULIN LISPRO (humaLOG) [humaLOG] See Protocol SQ DIRECTED 05/24/17 History Ondansetron Odt [Zofran ODT] 4 mg PO DAILY PRN 05/24/17 05/24/17 History Neela-Cherelle 1 tab PO DAILY 05/24/17 05/24/17 History Sodium Bicarbonate Tab 650 mg PO TID 05/24/17 05/24/17 History Vitamin B Complex 2 cap PO DAILY 05/24/17 05/24/17 History Allergies Allergy/AdvReac Type Severity Reaction Status Date / Time codeine Allergy Rash/Hives Verified 05/24/17 08:56 metoclopramide HCl AdvReac Muscle Verified 05/24/17 08:56 [From Reglan] Spasms morphine AdvReac Increases Verified 05/24/17 08:56 Pain Physical Exam Vitals: Vital Signs Temp Pulse Pulse Resp BP BP Pulse Ox 05/24/17 08:30 97.1 F L 71 18 143/71 98 05/24/17 07:49 97.6 F 65 16 127/71 100 05/24/17 07:06 154/78 05/24/17 06:49 72 17 188/92 100 05/24/17 06:01 97.2 F L 73 16 204/99 93 L Intake and Output 05/23/17 05/24/17 05/24/17 22:59 06:59 14:59 Intake Total 100 Balance 100 Intake: Oral 100 Other: Weight 58.967 kg PHYSICAL EXAMINATION: GENERAL: The patient is alert and oriented x3, not in any acute distress. Well developed, well nourished. HEENT: Pupils are round and equally reacting to light. EOMI. No scleral icterus. No conjunctival pallor. Normocephalic, atraumatic. No pharyngeal erythema. No thyromegaly. CARDIOVASCULAR: S1 and S2 present. No murmurs, rubs, or gallops. PULMONARY: Chest is clear to auscultation, no wheezing or crackles. ABDOMEN: Soft, nontender, nondistended, normoactive bowel sounds. No palpable organomegaly. MUSCULOSKELETAL: No joint swelling or deformity. EXTREMITIES: No cyanosis, clubbing, or pedal edema. NEUROLOGICAL: Gross neurological examination did not reveal any focal deficits. SKIN: No rashes. Results CBC & Chem 7: 05/24/17 06:29 05/24/17 06:29 Labs: Abnormal Lab Results - Last 24 Hours (Table) 05/24/17 05/24/17 05/24/17 Range/Units 06:29 06:29 06:29 Hgb 17.7 H D (13.0-17.5) gm/dL Hct 55.3 H (39.0-53.0) % RDW 16.7 H (11.5-15.5) % Lymphocytes # 0.8 L (1.0-4.8) k/uL Potassium 6.1 H (3.5-5.1) mmol/L Chloride 88 L (98-107) mmol/L BUN 40 H (9-20) mg/dL Creatinine 8.88 H* (0.66-1.25) mg/dL Glucose 241 H (74-99) mg/dL POC Glucose (mg/dL) (75-99) mg/dL Phosphorus 7.7 H (2.5-4.5) mg/dL Magnesium 2.6 H (1.6-2.3) mg/dL Total Bilirubin 1.4 H (0.2-1.3) mg/dL AST 60 H (17-59) U/L ALT 8 L (21-72) U/L Alkaline Phosphatase 304 H (38-126) U/L CK-MB (CK-2) 3.4 H* (0.0-2.4) ng/mL Total Protein 11.4 H (6.3-8.2) g/dL Albumin 5.6 H (3.5-5.0) g/dL 05/24/17 Range/Units 11:52 Hgb (13.0-17.5) gm/dL Hct (39.0-53.0) % RDW (11.5-15.5) % Lymphocytes # (1.0-4.8) k/uL Potassium (3.5-5.1) mmol/L Chloride (98-107) mmol/L BUN (9-20) mg/dL Creatinine (0.66-1.25) mg/dL Glucose (74-99) mg/dL POC Glucose (mg/dL) 165 H (75-99) mg/dL Phosphorus (2.5-4.5) mg/dL Magnesium (1.6-2.3) mg/dL Total Bilirubin (0.2-1.3) mg/dL AST (17-59) U/L ALT (21-72) U/L Alkaline Phosphatase (38-126) U/L CK-MB (CK-2) (0.0-2.4) ng/mL Total Protein (6.3-8.2) g/dL Albumin (3.5-5.0) g/dL Thrombosis Risk Factor Assmnt - Choose All That Apply Any of the Below Risk Factors Present?: Yes Each Factor Represents 1 point: Medical pt on bed rest Other Risk Factors: No Other congenital or acquired thrombophilia - If yes, enter type in comment: No Thrombosis Risk Factor Assessment Total Risk Factor Score: 1 Thrombosis Risk Factor Assessment Level: Low Risk Assessment and Plan Plan: -Gastroparesis gastritis: Improved symptoms patient can be discharged today -Hyperkalemia due to him hemanalysis partly patient is hemodialysis patient's lisinopril will be held -Hypertension -Type 1 diabetes mellitus: Blood sugars are well controlled -Stage renal disease on hemodialysis patient did not receive any hemodialysis apparently and patient will receive paralysis and after that patient can be discharged. -Cyclical vomiting syndrome
[2017-05-24] MEDS: INSULIN ASPART 100 UNIT/ML 1 ML 10 ML VIAL SQ SCH ×3 (13:37→20:57)
[2017-05-24] MEDS: hydrALAZINE HCL 50 MG TAB PO SCH ×3 (13:38→20:59)
[2017-05-24 14:01] VITALS: BMI 20.3
[2017-05-24] MEDS ORDERED: SODIUM BICARBONATE TAB 650 MG TAB PO SCH (16:00)
[2017-05-24 16:31] LABS: Anisocytosis Slight; HCT 42.1 % (39.0-53.0); Hypochromasia Slight; MCH 30.5 pg (25.0-35.0); MCHC 32.1 g/dL (31.0-37.0); MCV 95.1 fL (80.0-100.0); Mean Platelet Volume 8.1; Platelet Count 186 k/uL (150-450); RBC 4.43 m/uL (4.30-5.90); RDW 16.5 % (11.5-15.5); WBC 19.8 k/uL (3.8-10.6)
[2017-05-24 16:43] LABS: HGB 13.5 gm/dL (13.0-17.5)
[2017-05-24 16:45] LABS: Glucose,Whole Blood 110 mg/dL (75-99)
[2017-05-24] MEDS: SEVELAMER 800 MG TAB PO SCH ×3 (16:52→17:07)
[2017-05-24] MEDS ORDERED: CARVEDILOL 12.5 MG TAB PO SCH (17:30)
[2017-05-24 20:26] VITALS: BP 177/85; PULSE 79; TEMP 98
[2017-05-24 21:00] LABS: Glucose,Whole Blood 109 mg/dL (75-99)
[2017-05-24] MEDS ORDERED: chlorproMAZINE 25 MG TAB PO SCH (21:00)
[2017-05-24] MEDS ORDERED: SUCRALFATE 1 GM TAB PO SCH (21:00)
[2017-05-24] MEDS ORDERED: INSULIN DETEMIR 100 UNIT/ML 10 ML VIAL SQ SCH (21:00)
[2017-05-24 21:18] LABS: Hemoglobin A1C 8.3 % (4.0-6.0)
[2017-05-25] MEDS ORDERED: PANTOPRAZOLE 40 MG TABLET PO SCH (07:30)
[2017-05-25] MEDS ORDERED: NON-FORMULARY DRUG (Omeprazole 20 MG) PO SCH (09:00)
[2017-05-25] MEDS ORDERED: amLODIPine 10 MG TAB PO SCH (09:00)
[2017-05-25] MEDS ORDERED: DOCUSATE 100 MG CAP PO SCH (09:00)
[2017-05-25] MEDS ORDERED: CINACALCET 30 MG TAB PO SCH (09:00)
[2017-05-25] MEDS ORDERED: CYANOCOBALAMIN-FA-PYRIDOXINE 1 EACH TAB PO SCH (09:00)
== END 2017-05-24 23:02 | disposition home or self-care (01) | DRG 73 ==
LOC: EC 05:51 → 6SEL 07:04
PROVIDERS: ADMIT Hospitalist; ATTEND Hospitalist
PROC: 5A1D70Z Performance of Urinary Filtration, Intermittent, Less than 6 Hours Per Day (ICD-10-PCS; principal; 2017-05-24)
DX: E10.43 Type 1 diabetes mellitus with diabetic autonomic (poly)neuropathy (principal); N18.6 End stage renal disease; I13.2 Hypertensive heart and chronic kidney disease with heart failure and with stage 5 chronic kidney disease, or end stage renal disease; E10.22 Type 1 diabetes mellitus with diabetic chronic kidney disease; E83.9 Disorder of mineral metabolism, unspecified; E87.5 Hyperkalemia; K31.84 Gastroparesis; E03.9 Hypothyroidism, unspecified; G40.909 Epilepsy, unspecified, not intractable, without status epilepticus; F32.9 Major depressive disorder, single episode, unspecified; F41.9 Anxiety disorder, unspecified; I50.9 Heart failure, unspecified; E10.42 Type 1 diabetes mellitus with diabetic polyneuropathy; E10.319 Type 1 diabetes mellitus with unspecified diabetic retinopathy without macular edema; K21.9 Gastro-esophageal reflux disease without esophagitis; Z86.73 Personal history of transient ischemic attack (TIA), and cerebral infarction without residual deficits; Z99.2 Dependence on renal dialysis; Z88.6 Allergy status to analgesic agent; Z88.8 Allergy status to other drugs, medicaments and biological substances; Z79.899 Other long term (current) drug therapy; Z79.4 Long term (current) use of insulin; Z79.891 Long term (current) use of opiate analgesic; Z83.3 Family history of diabetes mellitus; Z82.0 Family history of epilepsy and other diseases of the nervous system; Z82.5 Family history of asthma and other chronic lower respiratory diseases; Z87.891 Personal history of nicotine dependence; Z87.19 Personal history of other diseases of the digestive system; Z90.89 Acquired absence of other organs; Z86.69 Personal history of other diseases of the nervous system and sense organs; Z91.15 Patient's noncompliance with renal dialysis
CPT/HCPCS: 36415; 80053; 82550; 82553; 83036; 83735; 84100; 84132; 84484; 85025; 85027; 90935; 93005; 94760; 96361; 96374; 96375; 99285

== ENCOUNTER 2017-06-02 13:51 | Emergency (ER) | payer MEDICARE, OTHER ==
[2017-06-02] MEDS ORDERED: SODIUM CHLORIDE 0.9% 500 ML IV STA (14:05)
[2017-06-02] MEDS ORDERED: ONDANSETRON 4 MG/2 ML VIAL IVP STA (14:05)
[2017-06-02] MEDS ORDERED: SODIUM CHLORIDE 0.9% 1,000 ML IV STA (14:05)
[2017-06-02] MEDS ORDERED: KETOROLAC 30 MG/ML 1 ML VIAL IVP STA (14:05)
[2017-06-02] MEDS ORDERED: hydrALAZINE HCL 20 MG/ML 1 ML VIAL IVP STA ×2 (14:10→16:15)
--- NOTE | 2017-06-02 14:10 | ED ---
Abdominal Pain HPI - General Chief Complaint: Abdominal Pain Stated Complaint: N & V Time Seen by Provider: 06/02/17 13:51 Source: patient, EMS, RN notes reviewed Mode of arrival: EMS Limitations: no limitations - History of Present Illness Initial Comments: This is a 40-year-old male with a history of chronic renal failure with dialysis Fridays history of chronic abdominal pain with gastroparesis diabetes who states he had the onset this morning around 9 AM of 5 -6 episodes of nausea vomiting he feels weak he has generalized abdominal pain crampy and achy in nature no overt fevers chills sweats no diarrhea no other symptoms at this time. No other contributory factors. MD Complaint: abdominal pain, other - Related Data Home Medications Medication Instructions Recorded Confirmed LORazepam [Ativan] 1 mg PO DAILY PRN 06/06/14 05/24/17 amLODIPine BESYLATE [Amlodipine 10 mg PO QAM 06/24/15 05/24/17 Besylate] Cyclobenzaprine [Flexeril] 10 mg PO TID PRN 02/20/16 05/24/17 Omeprazole [PriLOSEC] 20 mg PO DAILY 02/20/16 05/24/17 HYDROmorphone [Dilaudid] 2 mg PO DAILY PRN 03/28/16 05/24/17 hydrALAZINE HCL [Apresoline] 100 mg PO QID 03/28/16 05/24/17 hydrOXYzine HCL 10 mg PO Q8H PRN 11/15/16 05/24/17 chlorproMAZINE [Thorazine] 25 mg PO BID 12/28/16 05/24/17 Cinacalcet HCl [Sensipar] 60 mg PO DAILY 01/31/17 05/24/17 Sevelamer [Renvela] 800 mg PO AC-TID 01/31/17 05/24/17 Gabapentin [Neurontin] 200 mg PO MOWEFR 04/12/17 05/24/17 Carvedilol [Coreg] 25 mg PO BID 05/24/17 05/24/17 Docusate [Colace] 100 mg PO DAILY 05/24/17 05/24/17 INSULIN LISPRO (humaLOG) [humaLOG] See Protocol SQ DIRECTED 05/24/17 05/24/17 Ondansetron Odt [Zofran ODT] 4 mg PO DAILY PRN 05/24/17 05/24/17 Neela-Cherelle 1 tab PO DAILY 05/24/17 05/24/17 Sodium Bicarbonate Tab 650 mg PO TID 05/24/17 05/24/17 Vitamin B Complex 2 cap PO DAILY 05/24/17 05/24/17 Previous Rx's Medication Instructions Recorded Insulin Glargine [Lantus] 12 unit SQ HS #0 12/05/16 Sucralfate [Carafate] 1 gm PO BID #100 ml 04/13/17 Allergies Allergy/AdvReac Type Severity Reaction Status Date / Time codeine Allergy Rash/Hives Verified 06/02/17 13:58 metoclopramide HCl AdvReac Muscle Verified 06/02/17 13:58 [From Reglan] Spasms morphine AdvReac Increases Verified 06/02/17 13:58 Pain Review of Systems ROS Statement: Those systems with pertinent positive or pertinent negative responses have been documented in the HPI. ROS Other: All systems not noted in ROS Statement are negative. Past Medical History Past Medical History: Chest Pain / Angina, Heart Failure, Diabetes Mellitus, Dialysis, Eye Disorder, GERD/Reflux, Hypertension, Renal Disease, Seizure Disorder, Thyroid Disorder Additional Past Medical History / Comment(s): IDDM type I/brittle, chronic abdominal pain, gastroparesis, cyclic vomiting and had gastric pacemaker inserted 05/17/17 at [facility]-is on a full liquid diet and has not had a bowel movement since surgery, chronic renal failure stage IV, hemodialysis M/W/FR-4 hr , past peritoneal dialysis with peritonitis, pancreatitis, heart murmur, diabetic retinopathy bilaterally, retinal detachment with surgery, bilateral hands, legs and feet diabetic neuropathy, hypothyroid, hiatal hernia, sinusitis , bronchitis, chronic back pain, anemia, last seizure in 2015. History of Any Multi-Drug Resistant Organisms: None Reported Past Surgical History: Cholecystectomy, Heart Catheterization, Hernia Repair Additional Past Surgical History / Comment(s): 05/17/17 Gastric pacemaker inserted at [facility], bilateral retinal reattachment sx, hemodialysis catheter in Feb 2013- lt arm fistual, L inguinal hernia, 2009 cardiac cath. Past Anesthesia/Blood Transfusion Reactions: No Reported Reaction Additional Past Anesthesia/Blood Transfusion Reaction / Comment(s): mom states "swelling to uvula with gallbladder surgery went into resp arrest due to blocked airway." Past Psychological History: Anxiety, Depression Smoking Status: Former smoker - Past Family History Father History Unknown: Yes Mother History Unknown: Yes Family Medical History: COPD Additional Family Medical History / Comment(s): Mother has never smoked. Mother' s brother had diabetes and multiple sclerosis. Brother(s) Family Medical History: Diabetes Mellitus Additional Family Medical History / Comment(s): multiple sclerosis General Exam - General Exam Comments Initial Comments: This is a well-developed asthenic appearing male Limitations: no limitations General appearance: alert, anxious, in distress Head exam: Present: atraumatic, normocephalic, normal inspection Eye exam: Present: normal appearance, PERRL, EOMI. Absent: scleral icterus, conjunctival injection, periorbital swelling ENT exam: Present: mucous membranes dry Neck exam: Present: normal inspection. Absent: tenderness, meningismus, lymphadenopathy Respiratory exam: Present: normal lung sounds bilaterally. Absent: respiratory distress, wheezes, rales, rhonchi, stridor Cardiovascular Exam: Present: regular rate, normal rhythm, normal heart sounds. Absent: systolic murmur, diastolic murmur, rubs, gallop, clicks GI/Abdominal exam: Present: soft, normal bowel sounds. Absent: distended, tenderness, guarding, rebound, rigid Extremities exam: Present: normal inspection, full ROM, normal capillary refill. Absent: tenderness, pedal edema, joint swelling, calf tenderness Back exam: Present: normal inspection Neurological exam: Present: alert, oriented X3, CN II-XII intact Psychiatric exam: Present: normal affect, normal mood Skin exam: Present: warm, dry, intact, normal color. Absent: rash Course Vital Signs 06/02/17 06/02/17 06/02/17 13:56 14:31 15:23 Temperature 98.5 F Pulse Rate 86 86 Respiratory 18 16 Rate Blood Pressure 235/114 205/100 214/100 O2 Sat by Pulse 95 95 Oximetry 06/02/17 06/02/17 16:07 16:31 Temperature Pulse Rate 86 88 Respiratory 16 16 Rate Blood Pressure 204/98 163/83 O2 Sat by Pulse 95 Oximetry Medical Decision Making - Medical Decision Making I did reevaluate patient several occasions he still has nausea still has some abdominal discomfort. He does have plans to follow-up with his doctor next couple days to get a stimulator reevaluated. The meantime he'll be admitted I did discuss case with Dr. Jalloh patient will be admitted with consultation by nephrology for dialysis tomorrow. - Lab Data Result diagrams: 06/02/17 14:15 06/02/17 14:15 Lab Results 06/02/17 06/02/17 Range/Units 14:15 14:15 WBC 7.1 (3.8-10.6) k/uL RBC 4.80 (4.30-5.90) m/uL Hgb 14.6 (13.0-17.5) gm/dL Hct 45.3 (39.0-53.0) % MCV 94.3 (80.0-100.0) fL MCH 30.4 (25.0-35.0) pg MCHC 32.2 (31.0-37.0) g/dL RDW 16.1 H (11.5-15.5) % Plt Count 186 (150-450) k/uL Neutrophils % 76 % Lymphocytes % 12 % Monocytes % 4 % Eosinophils % 2 % Basophils % 1 % Neutrophils # 5.4 (1.3-7.7) k/uL Lymphocytes # 0.8 L (1.0-4.8) k/uL Monocytes # 0.3 (0-1.0) k/uL Eosinophils # 0.2 (0-0.7) k/uL Basophils # 0.1 (0-0.2) k/uL Anisocytosis Slight Sodium 149 H (137-145) mmol/L Potassium 4.8 (3.5-5.1) mmol/L Chloride 97 L (98-107) mmol/L Carbon Dioxide 30 (22-30) mmol/L Anion Gap 22 mmol/L BUN 57 H (9-20) mg/dL Creatinine 8.40 H* (0.66-1.25) mg/dL Est GFR (CKD-EPI)AfAm 8 (>60 ml/min/1.73 sqM) Est GFR (CKD-EPI)NonAf 7 (>60 ml/min/1.73 sqM) Glucose 143 H (74-99) mg/dL Calcium 9.5 (8.4-10.2) mg/dL Total Bilirubin 0.7 (0.2-1.3) mg/dL AST 44 (17-59) U/L ALT 22 (21-72) U/L Alkaline Phosphatase 171 H (38-126) U/L Total Protein 7.7 (6.3-8.2) g/dL Albumin 4.2 (3.5-5.0) g/dL Amylase 95 (30-110) U/L Lipase 69 (23-300) U/L - Radiology Data Radiology results: report reviewed (I did review the imaging and reports cardiomegaly but no acute findings), image reviewed Disposition Clinical Impression: Intractable vomiting with nausea, Abdominal pain, Chronic renal failure, Episode of hypertension Disposition: ADMITTED IP TO THIS [facility] Condition: Stable Referrals: Kala Onofre MD [Primary Care Provider] - 1-2 days
[2017-06-02 14:32] LABS: Anisocytosis Slight; Basophils # (A) 0.1 k/uL (0-0.2); Basophils % (A) 1 %; Eosinophils # (A) 0.2 k/uL (0-0.7); Eosinophils % (A) 2 %; HCT 45.3 % (39.0-53.0); HGB 14.6 gm/dL (13.0-17.5); Lymphocytes # (A) 0.8 k/uL (1.0-4.8); Lymphocytes % (A) 12 %; MCH 30.4 pg (25.0-35.0); MCHC 32.2 g/dL (31.0-37.0); MCV 94.3 fL (80.0-100.0); Mean Platelet Volume 7.6; Monocytes # (A) 0.3 k/uL (0-1.0); Monocytes % (A) 4 %; Neutrophils # (A) 5.4 k/uL (1.3-7.7); Neutrophils % (A) 76 %; Platelet Count 186 k/uL (150-450); RDW 16.1 % (11.5-15.5); WBC 7.1 k/uL (3.8-10.6)
[2017-06-02 14:40] LABS: Albumin 4.2 g/dL (3.5-5.0); Calcium 9.5 mg/dL (8.4-10.2); Potassium 4.8 mmol/L (3.5-5.1); Total Bilirubin 0.7 mg/dL (0.2-1.3); Total Protein 7.7 g/dL (6.3-8.2)
--- NOTE | 2017-06-02 15:10 | XR ---
EXAMINATION TYPE: XR abdomen acute w cxr DATE OF EXAM: 06/02/2017 COMPARISON: 01/30/2017 and 04/09/2017 HISTORY: 41-year-old male with pain TECHNIQUE: 4 views FINDINGS: Frontal view of the chest shows mild cardiomegaly and diffuse interstitial prominence. No consolidati on or pleural effusion. A generator device projects at the left paramedian mid abdomen. Extensive arterial calcifications are present throughout. Cholecystectomy clips and additional surgical clips right mid to lower abdomen. No dilated small bowel. A couple tiny air fluid levels are present in the region of the cecum. Multiple pelvic phleboliths. IMPRESSION: 1. Cardiomegaly. Correlate to exclude mild pulmonary vascular congestion. 2. No evidence for free air or bowel obstruction. 3. A couple tiny air fluid levels in the right lower quadrant could represent a mild regional ileus o r enteritis. 4. Extensive arterial calcifications suspected to be secondary to underlying chronic kidney disease.
[2017-06-02 15:24] VITALS: RESP 16
[2017-06-02] MEDS ORDERED: fentaNYL (PF) 50 MCG/ML 2 ML AMP IV STA (15:32)
[2017-06-02] MEDS ORDERED: HALOPERIDOL LACTATE 5 MG/ML 1 ML VIAL IVP STA (15:39)
[2017-06-02 16:31] VITALS: BP 163/83
[2017-06-02] MEDS ORDERED: NALOXONE 0.4 MG/ML 1 ML VIAL IV PRN (16:50)
[2017-06-02] MEDS ORDERED: ACETAMINOPHEN TAB 325 MG TAB PO PRN (16:50)
[2017-06-02] MEDS ORDERED: hydrOXYzine HCL 10 MG TAB PO PRN (16:53)
[2017-06-02] MEDS ORDERED: HYDROmorphone 2 MG TAB PO PRN (16:53)
[2017-06-02] MEDS ORDERED: LORazepam 1 MG TAB PO PRN (16:53)
[2017-06-02] MEDS ORDERED: CYCLOBENZAPRINE 10 MG TAB PO PRN (16:53)
[2017-06-02] MEDS ORDERED: SODIUM CHLORIDE 0.9% 1,000 ML IV SCH (17:00)
[2017-06-02 17:26] VITALS: PULSE 83; TEMP 97.8
[2017-06-02] MEDS ORDERED: CARVEDILOL 12.5 MG TAB PO SCH (17:30)
[2017-06-02] MEDS ORDERED: INSULIN ASPART 100 UNIT/ML 1 ML 10 ML VIAL SQ SCH (17:30)
[2017-06-02] MEDS ORDERED: SEVELAMER 800 MG TAB PO SCH (17:30)
--- NOTE | 2017-06-02 17:40 | ED ---
Medical Decision Making - Medical Decision Making The patient was admitted to the hospital and seen by Dr. Jalloh. The patient's blood pressure did improve he did get marked improvement in his nausea and bowel pain and doesn't want to go home he does not want to stay Dr. Freeman will be notified. - Lab Data Result diagrams: 06/02/17 14:15 06/02/17 14:15 Lab Results 06/02/17 06/02/17 Range/Units 14:15 14:15 WBC 7.1 (3.8-10.6) k/uL RBC 4.80 (4.30-5.90) m/uL Hgb 14.6 (13.0-17.5) gm/dL Hct 45.3 (39.0-53.0) % MCV 94.3 (80.0-100.0) fL MCH 30.4 (25.0-35.0) pg MCHC 32.2 (31.0-37.0) g/dL RDW 16.1 H (11.5-15.5) % Plt Count 186 (150-450) k/uL Neutrophils % 76 % Lymphocytes % 12 % Monocytes % 4 % Eosinophils % 2 % Basophils % 1 % Neutrophils # 5.4 (1.3-7.7) k/uL Lymphocytes # 0.8 L (1.0-4.8) k/uL Monocytes # 0.3 (0-1.0) k/uL Eosinophils # 0.2 (0-0.7) k/uL Basophils # 0.1 (0-0.2) k/uL Anisocytosis Slight Sodium 149 H (137-145) mmol/L Potassium 4.8 (3.5-5.1) mmol/L Chloride 97 L (98-107) mmol/L Carbon Dioxide 30 (22-30) mmol/L Anion Gap 22 mmol/L BUN 57 H (9-20) mg/dL Creatinine 8.40 H* (0.66-1.25) mg/dL Est GFR (CKD-EPI)AfAm 8 (>60 ml/min/1.73 sqM) Est GFR (CKD-EPI)NonAf 7 (>60 ml/min/1.73 sqM) Glucose 143 H (74-99) mg/dL Calcium 9.5 (8.4-10.2) mg/dL Total Bilirubin 0.7 (0.2-1.3) mg/dL AST 44 (17-59) U/L ALT 22 (21-72) U/L Alkaline Phosphatase 171 H (38-126) U/L Total Protein 7.7 (6.3-8.2) g/dL Albumin 4.2 (3.5-5.0) g/dL Amylase 95 (30-110) U/L Lipase 69 (23-300) U/L Disposition Clinical Impression: Intractable vomiting with nausea, Abdominal pain, Chronic renal failure, Episode of hypertension Disposition: HOME SELF-CARE Condition: Good Instructions: Abdominal Pain (ED), Acute Nausea and Vomiting (ED), Chronic Kidney Disease (ED), End Stage Kidney Disease (ED) Additional Instructions: Keep your dialysis appointment tomorrow Referrals: Kala Onofre MD [Primary Care Provider] - 1-2 days
[2017-06-02] MEDS ORDERED: hydrALAZINE HCL 50 MG TAB PO SCH (18:00)
[2017-06-02] MEDS ORDERED: INSULIN DETEMIR 100 UNIT/ML 10 ML VIAL SQ SCH (21:00)
[2017-06-02] MEDS ORDERED: chlorproMAZINE 25 MG TAB PO SCH (21:00)
[2017-06-02] MEDS ORDERED: SUCRALFATE 1 GM TAB PO SCH (21:00)
[2017-06-02] MEDS ORDERED: SODIUM BICARBONATE TAB 650 MG TAB PO SCH (22:00)
[2017-06-03] MEDS ORDERED: PANTOPRAZOLE 40 MG TABLET PO SCH (07:30)
[2017-06-03] MEDS ORDERED: CINACALCET 30 MG TAB PO SCH (09:00)
[2017-06-03] MEDS ORDERED: DOCUSATE 100 MG CAP PO SCH (09:00)
[2017-06-03] MEDS ORDERED: GABAPENTIN 100 MG CAP PO SCH (09:00)
[2017-06-03] MEDS ORDERED: amLODIPine 10 MG TAB PO SCH (09:00)
[2017-06-03] MEDS ORDERED: FOLIC ACID-VIT B COMPLEX-VIT C 1 CAP PO SCH (12:00)
== END 2017-06-02 18:00 | disposition home or self-care (01) ==
LOC: EC 13:51 → UNDOADMIN 16:50 → 6SEL 16:50 → EC 18:00
DX: I13.10 Hypertensive heart and chronic kidney disease without heart failure, with stage 1 through stage 4 chronic kidney disease, or unspecified chronic kidney disease (principal); I50.9 Heart failure, unspecified; N18.4 Chronic kidney disease, stage 4 (severe); R10.84 Generalized abdominal pain; G89.29 Other chronic pain; K21.9 Gastro-esophageal reflux disease without esophagitis; E10.22 Type 1 diabetes mellitus with diabetic chronic kidney disease; G40.909 Epilepsy, unspecified, not intractable, without status epilepticus; F41.9 Anxiety disorder, unspecified; F32.9 Major depressive disorder, single episode, unspecified; Z99.2 Dependence on renal dialysis; Z90.49 Acquired absence of other specified parts of digestive tract; Z95.818 Presence of other cardiac implants and grafts; Z87.891 Personal history of nicotine dependence; Z96.89 Presence of other specified functional implants; Z79.4 Long term (current) use of insulin; Z79.02 Long term (current) use of antithrombotics/antiplatelets; Z79.899 Other long term (current) drug therapy; Z88.5 Allergy status to narcotic agent; Z88.8 Allergy status to other drugs, medicaments and biological substances
CPT/HCPCS: 99284; 96374; 96375 ×4; 96376; 96361 ×4; 36415; 80053; 82150; 83690; 85025; 74022; J0360; J1630; J2405; J3010; J1885

== ENCOUNTER 2017-07-01 08:43 | Inpatient (IN) | payer MEDICARE, OTHER ==
[~2017-07-01 08:43] MED LIST changes: +GELATIN SPONGE,ABSORB (SMALL) 1 EACH SPONGE ONE; -LACTATED RINGERS 1,000 ML IV SCH; -ONABOTULINUMTOXINA 100 UNIT VIAL MISCELLANE ONE
[2017-07-01] MEDS ORDERED: SODIUM CHLORIDE 0.9% 1,000 ML IV STA ×2 (08:59)
[2017-07-01] MEDS ORDERED: LORazepam 2 MG/ML INJ IV STA (09:01)
[2017-07-01] MEDS ORDERED: FAMOTIDINE 20 MG/2 ML VIAL IV STA (09:01)
[2017-07-01] MEDS ORDERED: PROMETHAZINE INJ 25 MG in SODIUM CHLORIDE 0.9% 50 ML IVPB STA (09:05)
[2017-07-01 09:22] LABS: Glucose,Whole Blood 292 mg/dL (75-99)
--- NOTE | 2017-07-01 09:27 | ED ---
General Adult HPI - General Source: patient, RN notes reviewed, old records reviewed Mode of arrival: ambulatory Limitations: no limitations <Ruddy Napier - Last Filed: 07/01/17 12:01> <Trevin Gutierrez - Last Filed: 07/01/17 12:15> - General Chief complaint: Abdominal Pain Stated complaint: nausea, vomiting Time Seen by Provider: 07/01/17 08:57 - History of Present Illness Initial comments: Patient 41-year-old male significant past medical history for diabetes, gastroparesis, dialysis, presenting to the emergency room today with a chief complaint of nausea vomiting starting this morning. Patient states due for dialysis today but was unable to go due to nausea vomiting. Admits to some abdominal pain in the upper abdomen. He states his symptoms are consistent with gastroparesis that is had in the past. He denies any other complaints or symptoms. Patient denies any recent fever, chills, shortness of breath, chest pain, back pain, dysuria or hematuria, constipation or diarrhea, headaches or visual changes, or any other complaints. (Ruddy Napier) - Related Data Home Medications Medication Instructions Recorded Confirmed LORazepam [Ativan] 1 mg PO DAILY PRN 06/06/14 07/01/17 amLODIPine BESYLATE [Amlodipine 10 mg PO QAM 06/24/15 07/01/17 Besylate] Cyclobenzaprine [Flexeril] 10 mg PO TID PRN 02/20/16 07/01/17 Omeprazole [PriLOSEC] 20 mg PO DAILY 02/20/16 07/01/17 HYDROmorphone [Dilaudid] 2 mg PO DAILY PRN 03/28/16 07/01/17 hydrALAZINE HCL [Apresoline] 100 mg PO TID 03/28/16 07/01/17 hydrOXYzine HCL 10 mg PO Q8H PRN 11/15/16 07/01/17 chlorproMAZINE [Thorazine] 25 mg PO BID 12/28/16 07/01/17 Cinacalcet HCl [Sensipar] 60 mg PO DAILY 01/31/17 07/01/17 Sevelamer [Renvela] 800 mg PO AC-TID 01/31/17 07/01/17 Gabapentin [Neurontin] 200 mg PO MOWEFR 04/12/17 07/01/17 Carvedilol [Coreg] 25 mg PO BID 05/24/17 07/01/17 Docusate [Colace] 100 mg PO DAILY 05/24/17 07/01/17 INSULIN LISPRO (humaLOG) [humaLOG] See Protocol SQ TID PRN 05/24/17 07/01/17 Ondansetron Odt [Zofran ODT] 4 mg PO DAILY PRN 05/24/17 07/01/17 Neela-Cherelle 1 tab PO DAILY 05/24/17 07/01/17 Sodium Bicarbonate Tab 650 mg PO TID 05/24/17 07/01/17 Vitamin B Complex 2 cap PO DAILY 05/24/17 07/01/17 Previous Rx's Medication Instructions Recorded Insulin Glargine [Lantus] 12 unit SQ HS #0 12/05/16 Sucralfate [Carafate] 1 gm PO BID #100 ml 04/13/17 Allergies Allergy/AdvReac Type Severity Reaction Status Date / Time codeine Allergy Rash/Hives Verified 07/01/17 09:17 metoclopramide HCl AdvReac Muscle Verified 07/01/17 09:17 [From Reglan] Spasms morphine AdvReac Increases Verified 07/01/17 09:17 Pain Review of Systems ROS Other: All systems not noted in ROS Statement are negative. <Ruddy Napier - Last Filed: 07/01/17 12:01> ROS Other: All systems not noted in ROS Statement are negative. <Trevin Gutierrez - Last Filed: 07/01/17 12:15> ROS Statement: Those systems with pertinent positive or pertinent negative responses have been documented in the HPI. Past Medical History Past Medical History: Chest Pain / Angina, Heart Failure, Diabetes Mellitus, Dialysis, Eye Disorder, GERD/Reflux, Hypertension, Renal Disease, Seizure Disorder, Thyroid Disorder Additional Past Medical History / Comment(s): IDDM type I/brittle, chronic abdominal pain, gastroparesis, cyclic vomiting and had gastric pacemaker inserted 05/17/17 at [facility]-is on a full liquid diet and has not had a bowel movement since surgery, chronic renal failure stage IV, hemodialysis M/W/FR-4 hr , past peritoneal dialysis with peritonitis, pancreatitis, heart murmur, diabetic retinopathy bilaterally, retinal detachment with surgery, bilateral hands, legs and feet diabetic neuropathy, hypothyroid, hiatal hernia, sinusitis , bronchitis, chronic back pain, anemia, last seizure in 2016. History of Any Multi-Drug Resistant Organisms: None Reported Past Surgical History: Cholecystectomy, Heart Catheterization, Hernia Repair Additional Past Surgical History / Comment(s): 05/17/17 Gastric pacemaker inserted at [facility], bilateral retinal reattachment sx, hemodialysis catheter in Feb 2013- lt arm fistual, L inguinal hernia, 2009 cardiac cath. Past Anesthesia/Blood Transfusion Reactions: No Reported Reaction Additional Past Anesthesia/Blood Transfusion Reaction / Comment(s): mom states "swelling to uvula with gallbladder surgery went into resp arrest due to blocked airway." Past Psychological History: Anxiety, Depression Smoking Status: Former smoker - Past Family History Father History Unknown: Yes Mother History Unknown: Yes Family Medical History: COPD Additional Family Medical History / Comment(s): Mother has never smoked. Mother' s brother had diabetes and multiple sclerosis. Brother(s) Family Medical History: Diabetes Mellitus Additional Family Medical History / Comment(s): multiple sclerosis <Ruddy Napier - Last Filed: 07/01/17 12:01> General Exam Limitations: no limitations <Ruddy Napier - Last Filed: 07/01/17 12:01> <Trevin Gutierrez - Last Filed: 07/01/17 12:15> - General Exam Comments Initial Comments: General: The patient is awake and alert, in moderate distress. Eye: Pupils are equal, round and reactive to light, extra-ocular movements are intact. No nystagmus. There is normal conjunctiva bilaterally. No signs of icterus. Ears, nose, mouth and throat: There are moist mucous membranes and no oral lesions. Neck: The neck is supple, there is no tenderness or JVD. Cardiovascular: There is a regular rate and rhythm. No murmur, rub or gallop is appreciated. Respiratory: Lungs are clear to auscultation, respirations are non-labored, breath sounds are equal. No wheezes, stridor, rales, or rhonchi. Gastrointestinal: Abdomen soft on palpation. Does have surgical incision is healing well to the left side of the upper abdomen. No rebound tenderness. No guarding. No CVA tenderness. Musculoskeletal: Normal ROM, no tenderness. Strength 5/5. Sensation intact. Neurological: A&O x 3. CN II-XII intact, There are no obvious motor or sensory deficits. Coordination appears grossly intact. Speech is normal. Skin: Skin is warm and dry and no rashes or lesions are noted. Psychiatric: Cooperative, appropriate mood & affect, normal judgment. (Ruddy Napier) Vital Signs 07/01/17 07/01/17 07/01/17 08:49 10:08 11:03 Temperature 98.5 F Pulse Rate 94 86 89 Respiratory 22 18 20 Rate Blood Pressure 225/107 190/95 220/102 O2 Sat by Pulse 92 L 92 L Oximetry 07/01/17 11:30 Temperature 97 F L Pulse Rate 92 Respiratory 18 Rate Blood Pressure 227/111 O2 Sat by Pulse 81 L Oximetry Medical Decision Making - Lab Data Result diagrams: 07/01/17 09:41 07/01/17 09:41 <Ruddy Napier - Last Filed: 07/01/17 12:01> - Lab Data Result diagrams: 07/01/17 09:41 07/01/17 09:41 <Trevin Gutierrez - Last Filed: 07/01/17 12:15> - Medical Decision Making Patient reexamined and he is feeling better in the emergency room. Patient is a dialysis patient to for dialysis today. Patient's BUN/creatinine reviewed. His potassium 6.4 EKG does show some peaked T waves. Patient been given sodium bicarb, insulin, dextrose, Kayexalate here in the emergency room. Patient's blood pressure elevated. Was given Catapres patch along with hydralazine. Patient will be admitted to the hospital. (Ruddy Napier) The patient was seen and examined. All diagnostics were reviewed. I have discussed the case with PA and agree with the findings as documented. Case also was discussed with internal medicine and patient will be admitted to the hospital with nephrology to consult. Case is discussed with Dr. Rush and she would like emergent dialysis completed. Case is also discussed with Dr. Tom for ICU consultation. It is felt as though the patient does have significant fluid overload. His chest x-ray shows significant signs of fluid over load/ CHF. When I walked into the room, his pulse ox was down to 74% on 2 L per nasal cannula. He came up to 80% on 5 L. He is approximately 96% on nonrebreather. His blood pressure is also severely elevated and he is given multiple doses of hydralazine intravenously. He has significant hyperkalemia and is treated for this with a carbon it, insulin, glucose, and Kayexalate. His kidney function is severely elevated. Approximately 30 minutes of critical care time is utilized and the treatment of the patient. (Trevin Gutierrez) - Lab Data Lab Results 07/01/17 07/01/17 07/01/17 Range/Units 09:20 09:41 09:41 WBC 7.9 (3.8-10.6) k/uL RBC 3.78 L (4.30-5.90) m/uL Hgb 10.8 L D (13.0-17.5) gm/dL Hct 34.6 L (39.0-53.0) % MCV 91.5 (80.0-100.0) fL MCH 28.6 (25.0-35.0) pg MCHC 31.3 (31.0-37.0) g/dL RDW 14.9 (11.5-15.5) % Plt Count 134 L (150-450) k/uL Neutrophils % 80 % Lymphocytes % 9 % Monocytes % 4 % Eosinophils % 5 % Basophils % 1 % Neutrophils # 6.3 (1.3-7.7) k/uL Lymphocytes # 0.7 L (1.0-4.8) k/uL Monocytes # 0.4 (0-1.0) k/uL Eosinophils # 0.4 (0-0.7) k/uL Basophils # 0.1 (0-0.2) k/uL Sodium 146 H (137-145) mmol/L Potassium 6.4 H* (3.5-5.1) mmol/L Chloride 98 (98-107) mmol/L Carbon Dioxide 27 (22-30) mmol/L Anion Gap 21 mmol/L BUN 89 H* (9-20) mg/dL Creatinine 9.04 H* (0.66-1.25) mg/dL Est GFR (CKD-EPI)AfAm 8 (>60 ml/min/1.73 sqM) Est GFR (CKD-EPI)NonAf 7 (>60 ml/min/1.73 sqM) Glucose 279 H (74-99) mg/dL POC Glucose (mg/dL) 292 H (75-99) mg/dL POC Glu Motor Rebuilder ID Marlena Weeks Calcium 9.0 (8.4-10.2) mg/dL Total Bilirubin 1.0 (0.2-1.3) mg/dL AST 548 H (17-59) U/L ALT 346 H (21-72) U/L Alkaline Phosphatase 261 H (38-126) U/L Total Protein 7.3 (6.3-8.2) g/dL Albumin 4.5 (3.5-5.0) g/dL Amylase 72 (30-110) U/L Lipase 154 (23-300) U/L Acetone, Qual Negative (Negative) Disposition Is patient prescribed a controlled substance at d/c from ED?: No Time of Disposition: 12:02 <Ruddy Napier - Last Filed: 07/01/17 12:01> Is patient prescribed a controlled substance at d/c from ED?: No Decision Date: 07/01/17 Decision Time: 12:15 <Trevin Gutierrez - Last Filed: 07/01/17 12:15> Clinical Impression: Hyperkalemia, Hypoxia, Nausea & vomiting, CHF (congestive heart failure), Fluid overload, Acute respiratory failure, Hypertensive crisis, Hypertension complicating diabetes, Chronic abdominal pain, Intractable nausea and vomiting, Cyclic vomiting syndrome, Chronic renal failure, stage 4 (severe), Epigastric abdominal pain Disposition: ADMITTED IP TO THIS HOSP Condition: Stable Referrals: Kala Onofre MD [Primary Care Provider] - 1-2 days
[2017-07-01 09:54] LABS: Basophils # (A) 0.1 k/uL (0-0.2); Basophils % (A) 1 %; Eosinophils # (A) 0.4 k/uL (0-0.7); Eosinophils % (A) 5 %; HCT 34.6 % (39.0-53.0); Lymphocytes # (A) 0.7 k/uL (1.0-4.8); Lymphocytes % (A) 9 %; MCH 28.6 pg (25.0-35.0); MCHC 31.3 g/dL (31.0-37.0); MCV 91.5 fL (80.0-100.0); Mean Platelet Volume 8.8; Monocytes # (A) 0.4 k/uL (0-1.0); Monocytes % (A) 4 %; Neutrophils # (A) 6.3 k/uL (1.3-7.7); Neutrophils % (A) 80 %; Platelet Count 134 k/uL (150-450); RBC 3.78 m/uL (4.30-5.90); RDW 14.9 % (11.5-15.5); WBC 7.9 k/uL (3.8-10.6)
[2017-07-01 10:00] LABS: HGB 10.8 gm/dL (13.0-17.5)
[2017-07-01] MEDS ORDERED: cloNIDine 0.2 MG/24HR PATCH 1 PATCH PATCH TRANSDERM SCH (10:00)
[2017-07-01 10:13] LABS: ALT 346 U/L (21-72); AST 548 U/L (17-59); Albumin 4.5 g/dL (3.5-5.0); Alkaline Phosphatase 261 U/L (38-126); Amylase 72 U/L (30-110); Anion Gap 21 mmol/L; Carbon Dioxide 27 mmol/L (22-30); Chloride 98 mmol/L (98-107); Glucose 279 mg/dL (74-99); Lipase 154 U/L (23-300); Sodium 146 mmol/L (137-145); Total Protein 7.3 g/dL (6.3-8.2)
[2017-07-01 10:30] LABS: Blood Urea Nitrogen 89 mg/dL (9-20); Potassium 6.4 mmol/L (3.5-5.1)
--- NOTE | 2017-07-01 10:39 | XR ---
EXAMINATION TYPE: XR KUB DATE OF EXAM: 07/01/2017 COMPARISON: 06/02/2017 HISTORY: Pain TECHNIQUE: One view abdominal series FINDINGS: The osseous structures are intact. The bowel gas pattern is nonspecific. Previous cholecystectomy cl ips are noted. Vascular calcifications are seen and there is degenerative change of the spine arthrop athy of the hips. Generator device is again noted. IMPRESSION: 1. Nonspecific abdomen.
[2017-07-01] MEDS ORDERED: SODIUM BICARB 8.4% 50 ML SYR (1 MEQ/ML) IV ONE (11:04)
[2017-07-01] MEDS ORDERED: INSULIN REGULAR 100 UNIT/ML VIAL IV ONE (11:04)
[2017-07-01] MEDS ORDERED: DEXTROSE 50%-WATER 50 ML SYRINGE IVP STA (11:04)
[2017-07-01] MEDS ORDERED: SODIUM POLYSTYRENE SULFONATE 15 GM/60 ML BOTTLE PO STA (11:04)
[2017-07-01] MEDS ORDERED: hydrALAZINE HCL 20 MG/ML 1 ML VIAL IVP STA ×2 (11:06→12:12)
[2017-07-01] MEDS ORDERED: ALBUTEROL NEBULIZED 2.5 MG/3 ML INHALATION STA (11:26)
--- NOTE | 2017-07-01 11:42 | XR ---
EXAMINATION TYPE: XR chest 1V portable DATE OF EXAM: 07/01/2017 COMPARISON: Prior chest x-ray 01/30/2017, 06/02/2017 HISTORY: Difficulty breathing TECHNIQUE: Single frontal view of the chest is obtained. FINDINGS: The heart remains enlarged. Interstitium and central vascularity are prominent. No evident pneumothorax or pleural effusion. There are overlying cardiac leads. IMPRESSION: Correlate for pulmonary venous hypertension and interstitial edema. Follow-up suggested.
[2017-07-01] MEDS ORDERED: NALOXONE 0.4 MG/ML 1 ML VIAL IV PRN (12:02)
[2017-07-01] MEDS ORDERED: LORazepam 2 MG/ML INJ IV PRN (12:02)
[2017-07-01] MEDS ORDERED: LABETALOL 5 MG/ML VIAL MDV IVP STA ×2 (12:56→12:58)
[2017-07-01 13:00] LABS: Creatine Kinase MB 4.3 ng/mL (0.0-2.4)
[2017-07-01 13:08] LABS: Troponin I 0.014 ng/mL (0.000-0.034)
[2017-07-01 13:21] LABS: Glucose,Whole Blood 134 mg/dL (75-99)
[2017-07-01] MEDS: ONDANSETRON 4 MG/2 ML VIAL IVP PRN (13:30)
[2017-07-01] MEDS ORDERED: HYDROmorphone 2 MG TAB PO PRN ×2 (14:17→19:40)
--- NOTE | 2017-07-01 14:25 | P.CNPUL ---
History of Present Illness Consult date: 07/01/17 Requesting physician: Tang E Sheet Reason for consult: dyspnea Chief complaint: Shortness of breath, nausea and vomiting History of present illness: This is a 41-year-old white male with history of end-stage renal disease, on hemodialysis, history of diabetes and gastroparesis, hypertension, seizure disorder, hypothyroidism, insulin-dependent diabetes mellitus, cyclic vomiting and abdominal pain secondary to gastroparesis requiring a gastric pacemaker insertion at [facility]. Past peritoneal dialysis with peritonitis, previous history of pancreatitis, diabetic retinopathy, diabetic neuropathy, patient presented to the ER today with nausea, vomiting, of one day duration. Patient was also complaining of vague abdominal pain in the upper abdomen, had many previous similar presentations in the past related to gastroparesis. In the ER, patient received a fluid bolus for low blood pressure, and later on his chest x-ray showed evidence of pulmonary edema/fluid overload. O2 saturation was very marginal even on high flow nasal cannula, patient was placed on a nonrebreather mask, admitted to the ICU, and I was asked to see him on consultation, nephrology was asked to see him on consultation, and we will arrange for hemodialysis as soon as possible. His labs showed relatively normal CBC. Potassium was 6.4. BUN 89 creatinine 9.0 for blood sugar 279 elevated transaminases were noted. ProBNP level was 81,000. Serum ketones negative. I evaluated the patient in the ICU, I recommended switching him to a high flow nasal cannula, and I discussed his condition with the waiter/waitress tourist class applications support analyst Dr. Rush, she will arrange for hemodialysis as soon as possible. Patient has mostly symptoms of nausea vomiting abdominal pain, and shortness of breath. No fever no chills no hemoptysis. No melena no hematemesis. Review of Systems 12 point review of systems were obtained, please refer to pertinent positives in HPI. Otherwise remaining systems are negative. Past Medical History Past Medical History: Chest Pain / Angina, Heart Failure, Diabetes Mellitus, Dialysis, Eye Disorder, GERD/Reflux, Hypertension, Renal Disease, Seizure Disorder, Thyroid Disorder Additional Past Medical History / Comment(s): IDDM type I/brittle, chronic abdominal pain, gastroparesis, cyclic vomiting and had gastric pacemaker inserted 05/17/17 at [facility], chronic renal failure stage IV, hemodialysis M/W/FR-4 hr, past peritoneal dialysis with peritonitis, pancreatitis, heart murmur, diabetic retinopathy bilaterally, retinal detachment with surgery, bilateral hands, legs and feet diabetic neuropathy, hypothyroid, hiatal hernia, sinusitis , bronchitis, chronic back pain, anemia, last seizure in 2015. History of Any Multi-Drug Resistant Organisms: None Reported Past Surgical History: Cholecystectomy, Heart Catheterization, Hernia Repair Additional Past Surgical History / Comment(s): 05/17/17 Gastric pacemaker inserted at [facility], bilateral retinal reattachment sx, hemodialysis catheter in Feb 2013- lt arm fistual, L inguinal hernia, 2009 cardiac cath. Past Anesthesia/Blood Transfusion Reactions: No Reported Reaction Additional Past Anesthesia/Blood Transfusion Reaction / Comment(s): Uvula edema with gallbladder surgery that occluded airway and caused respiratory arrest. Smoking Status: Former smoker - Past Family History Father History Unknown: Yes Mother History Unknown: Yes Family Medical History: COPD Additional Family Medical History / Comment(s): Mother has never smoked. Mother' s brother had diabetes and multiple sclerosis. Brother(s) Family Medical History: Diabetes Mellitus Additional Family Medical History / Comment(s): multiple sclerosis Medications and Allergies Home Medications Medication Instructions Recorded Confirmed Type LORazepam [Ativan] 1 mg PO DAILY PRN 06/06/14 07/01/17 History amLODIPine BESYLATE [Amlodipine 10 mg PO QAM 06/24/15 07/01/17 History Besylate] Cyclobenzaprine [Flexeril] 10 mg PO TID PRN 02/20/16 07/01/17 History Omeprazole [PriLOSEC] 20 mg PO DAILY 02/20/16 07/01/17 History HYDROmorphone [Dilaudid] 2 mg PO DAILY PRN 03/28/16 07/01/17 History hydrALAZINE HCL [Apresoline] 100 mg PO TID 03/28/16 07/01/17 History hydrOXYzine HCL 10 mg PO Q8H PRN 11/15/16 07/01/17 History Insulin Glargine [Lantus] 12 unit SQ HS #0 12/05/16 07/01/17 Rx chlorproMAZINE [Thorazine] 25 mg PO BID 12/28/16 07/01/17 History Cinacalcet HCl [Sensipar] 60 mg PO DAILY 01/31/17 07/01/17 History Sevelamer [Renvela] 800 mg PO AC-TID 01/31/17 07/01/17 History Gabapentin [Neurontin] 200 mg PO MOWEFR 04/12/17 07/01/17 History Sucralfate [Carafate] 1 gm PO BID #100 ml 04/13/17 07/01/17 Rx Carvedilol [Coreg] 25 mg PO BID 05/24/17 07/01/17 History Docusate [Colace] 100 mg PO DAILY 05/24/17 07/01/17 History INSULIN LISPRO (humaLOG) [humaLOG] See Protocol SQ TID PRN 05/24/17 07/01/17 History Ondansetron Odt [Zofran ODT] 4 mg PO DAILY PRN 05/24/17 07/01/17 History Neela-Cherelle 1 tab PO DAILY 05/24/17 07/01/17 History Sodium Bicarbonate Tab 650 mg PO TID 05/24/17 07/01/17 History Vitamin B Complex 2 cap PO DAILY 05/24/17 07/01/17 History Allergies Allergy/AdvReac Type Severity Reaction Status Date / Time codeine Allergy Rash/Hives Verified 07/01/17 09:17 metoclopramide HCl AdvReac Muscle Verified 07/01/17 09:17 [From Reglan] Spasms morphine AdvReac Increases Verified 07/01/17 09:17 Pain Physical Exam Vitals: Vital Signs Temp Pulse Resp BP Pulse Ox 07/01/17 13:10 100.4 F H 79 18 203/101 96 07/01/17 13:03 97.0 F L 90 18 200/100 98 07/01/17 12:30 97 07/01/17 12:15 91 07/01/17 11:30 97 F L 92 18 227/111 81 L 07/01/17 11:03 89 20 220/102 07/01/17 10:08 86 18 190/95 92 L 07/01/17 08:49 98.5 F 94 22 225/107 92 L Intake and Output 06/30/17 07/01/17 07/01/17 22:59 06:59 14:59 Other: Weight 63.3 kg General: Physical exam revealed a 61-year-old white male in moderate distress secondary to nausea vomiting and vague abdominal discomfort. Eye: Pupils are equal, round and reactive to light, extra-ocular movements are intact. No nystagmus. There is normal conjunctiva bilaterally. No signs of icterus. Ears, nose, mouth and throat: Moist mucous membranes, nasal mucosa is normal. Neck: Supple no neck masses no JVD no stridor. Cardiovascular: Normal S1 and S2, no S3 gallop. Respiratory: Diffuse rhonchi and crackles noted bilaterally, no chest wall tenderness. Gastrointestinal: Abdomen soft on palpation. Does have surgical incision is healing well to the left side of the upper abdomen. No rebound tenderness. No guarding. No CVA tenderness. Gastric pacemaker palpable in the left upper quadrant. Musculoskeletal: Normal ROM, no tenderness. Strength 5/5. Sensation intact. Neurological: A&O x 3. CN II-XII intact, There are no obvious motor or sensory deficits. Coordination appears grossly intact. Speech is normal. Skin: Skin is warm and dry and no rashes or lesions are noted. Psychiatric: Normal mood affect and mental status examination. Lymphatics: No lymphadenopathy. Results - Laboratory Findings CBC and BMP: 07/01/17 09:41 07/01/17 09:41 Abnormal lab findings: Abnormal Labs 07/01/17 07/01/17 07/01/17 09:20 09:41 09:41 RBC 3.78 L Hgb 10.8 L D Hct 34.6 L Plt Count 134 L Lymphocytes # 0.7 L Sodium 146 H Potassium 6.4 H* BUN 89 H* Creatinine 9.04 H* Glucose 279 H POC Glucose (mg/dL) 292 H AST 548 H ALT 346 H Alkaline Phosphatase 261 H CK-MB (CK-2) 07/01/17 07/01/17 09:41 13:19 RBC Hgb Hct Plt Count Lymphocytes # Sodium Potassium BUN Creatinine Glucose POC Glucose (mg/dL) 134 H AST ALT Alkaline Phosphatase CK-MB (CK-2) 4.3 H* - Diagnostic Findings Chest x-ray: image reviewed (Chest x-ray is consistent with pulmonary edema/ interstitial edema bilaterally.) Assessment and Plan Assessment: Impression: 1 acute hypoxic respiratory failure secondary to acute pulmonary edema, fluid overload secondary to chronic renal failure stage IV, possibility of underlying pneumonia is felt to be less likely, however considering the patient is febrile on admission, will empirically give 1 dose of vancomycin. And Zosyn. Blood cultures will be ordered, and if positive will be addressed accordingly. 2 acute hyperkalemia secondary to chronic renal failure 3 multiple comorbidities including chronic renal failure stage IV, on hemodialysis, insulin-dependent diabetes type 1, chronic gastroparesis, cyclic vomiting and gastric pacemaker insertion, diabetic retinopathy and neuropathy, history of hypothyroidism, history of seizure disorder, and chronic anemia secondary to renal failure. Recommendation: Patient will definitely need immediate hemodialysis, nephrology was notified, and arrangements are being made for hemodialysis. Empiric antibiotics will be started, Zofran given for nausea and vomiting, we will continue to follow in the intensive care unit.
[2017-07-01] MEDS: CYCLOBENZAPRINE 10 MG TAB PO PRN (14:45)
[2017-07-01] MEDS ORDERED: hydrOXYzine HCL 10 MG TAB PO PRN (14:52)
[2017-07-01] MEDS: hydrALAZINE HCL 50 MG TAB PO SCH ×2 (15:56→21:20)
[2017-07-01] MEDS ORDERED: GABAPENTIN 100 MG CAP PO SCH (16:00)
[2017-07-01] MEDS: CLEVIDIPINE BUTYRATE 25 MG in EMPTY BAG 1 BAG IV SCH ×3 (16:12→21:21)
[2017-07-01] MEDS: ACETAMINOPHEN TAB 500 MG TAB PO PRN (16:29)
[2017-07-01] MEDS: PIPERACILLIN-TAZOBACTAM 3.375 GM in DEXTROSE/WATER 1 50ML.BAG IVPB SCH (17:13)
[2017-07-01 17:17] LABS: Glucose,Whole Blood 107 mg/dL (75-99)
[2017-07-01] MEDS ORDERED: HYDROmorphone 2 MG TAB PO STA (17:45)
[2017-07-01] MEDS: SEVELAMER 800 MG TAB PO SCH (17:53)
[2017-07-01] MEDS: INSULIN ASPART 100 UNIT/ML 1 ML 10 ML VIAL SQ SCH ×2 (17:53→20:17)
[2017-07-01] MEDS: SODIUM BICARBONATE TAB 650 MG TAB PO SCH ×2 (17:53→23:11)
[2017-07-01] MEDS ORDERED: RX INFO: IV CONTRAST WAS GIVEN 1 EACH MISC MISCELLANE PRN (18:13)
[2017-07-01] MEDS: CARVEDILOL 12.5 MG TAB PO SCH (18:27)
[2017-07-01] MEDS: LORazepam 1 MG TAB PO PRN (18:32)
--- NOTE | 2017-07-01 19:21 | CONS ---
CONSULTATION REASON FOR CONSULT: End-stage renal disease. HISTORY OF PRESENT ILLNESS: Patient is a 41-year-old male with history of end-stage renal disease, on hemodialysis on a Saturday, Saturday, Saturday schedule. The patient was admitted to the hospital with complaints of shortness of breath. He was also having abdominal pain. He was not able to make it to his usual dialysis treatment this morning. His chest x-ray shows evidence of CHF and fluid overload. Patient's potassium was elevated at 6.4. The patient denies any history of fevers or chills. He has been having nausea and vomiting and has previous history of recurrent admissions for gastroparesis. He has recently had a gastric pacemaker placed at [facility] in April of this year. PAST MEDICAL HISTORY: Type 1 diabetes, diabetic retinopathy, hypertension, seizure disorder, hypothyroidism, diabetic gastroparesis, pancreatitis, history of retinal detachment, hiatal hernia, bronchitis, chronic back pain. PAST SURGICAL HISTORY: Cholecystitis, PD catheter insertion and removal, cardiac catheterization, hernia repair, PermCath placement, AV fistula left arm, inguinal hernia repair, surgery for retinal detachment. SOCIAL HISTORY: Patient is a former smoker. No history of drug abuse or alcohol abuse. MEDICATIONS: Prior to admission included Ativan, amlodipine, Flexeril, Prilosec, Dilaudid, hydralazine, insulin, Sensipar and melena, Neurontin, Carafate, Coreg, insulin, sodium bicarb, vitamin B, Neela-Cherelle, Zofran. ALLERGIES: Include CODEINE, MORPHINE, REGLAN. EXAMINATION: Patient is currently complaining of pain. He is not in any acute distress. He is on 100% non-rebreather. On examination this afternoon, blood pressure was 186/95, heart rate of 87 per minute. He is afebrile. Examination of the heart: S1, S2. Examination lungs: Decreased breath sounds bases. Basal crackles are heard. Abdomen is soft. There is tenderness noted in the lower abdomen. The gastric pacemaker is intact. There is no tenderness around the pacemaker. Examination lower extremities shows chronic skin changes. Trace edema is noted. GRAPHIC PRE PRESS TRADES WORKER exam is grossly intact. Patient moving all 4 extremities. LAB: Show sodium of 146, potassium 6.4, chloride 98, BUN 89, serum creatinine 9.04. CK was 92, troponin 0.014, hemoglobin 10.4, white cell count 7.9. ASSESSMENT: 1. End-stage renal disease, on hemodialysis via left arm AV fistula on a Saturday, Saturday, Saturday schedule. Patient will be dialyzed today. 2. Fluid overload. We will try for about 4-4.5 L of ultrafiltration today. 3. Hypertension. Partly volume sensitive and also worsened secondary to pain. Maintain patient on his oral usual antihypertensive medications. If he is not able to take oral, we will need to use a clonidine patch or IV medications. He has received IV hydralazine. We will repeat hydralazine and labetalol. 4. Severe hyperkalemia. The patient is scheduled for hemodialysis today. He should be having the dialysis in the next hour when patient was seen this afternoon. 5. Abdominal pain. We will reassess once patient is dialyzed. He does not appear to have an acute abdomen at this time. We can proceed with further imaging depending on his condition over the next few hours. 6. Anemia of chronic disease. PLAN: We will arrange for hemodialysis for a stat treatment. Expect improvement in blood pressure with ultrafiltration and dialysis. Consult Surgery if abdominal pain persists. MMODL / IJN: [id number] /
[2017-07-01] MEDS: IOPAMIDOL-300 CONTRAST 30 ML VIAL (ORAL USE) PO PRN ×2 (20:00→21:00)
[2017-07-01 20:15] LABS: Glucose,Whole Blood 123 mg/dL (75-99)
[2017-07-01] MEDS: chlorproMAZINE 25 MG TAB PO SCH (20:17)
[2017-07-01] MEDS: SUCRALFATE 1 GM TAB PO SCH (20:17)
[2017-07-01] MEDS ORDERED: VANCOMYCIN 1,000 MG in SODIUM CHLORIDE 0.9% 250 ML IVPB ONE (21:00)
[2017-07-01] MEDS ORDERED: INSULIN DETEMIR 100 UNIT/ML 10 ML VIAL SQ SCH (21:00)
--- NOTE | 2017-07-01 22:08 | CT ---
EXAMINATION TYPE: CT abdomen pelvis w con DATE OF EXAM: 07/01/2017 COMPARISON: NONE HISTORY: Nausea, vomiting. CT DLP: 412.7 mGycm Automated exposure control for dose reduction was used. TECHNIQUE: Helical acquisition of images was performed from the lung bases through the pelvis. CONTRAST: Performed with Oral Contrast and with IV Contrast, patient injected with 100 mL of Isovue 300. FINDINGS: There are bilateral pleural effusions. There is patchy infiltrate at the lung bases. Heart is enlarge d. There is small pericardial effusion. Liver and spleen appear normal. Bile ducts are not dilated. There are clips from cholecystectomy. The re is no adrenal mass. There is atherosclerotic vascular calcification. Kidneys have normal size. The re is no hydronephrosis. There is mild cortical thinning. There is no retroperitoneal adenopathy. The re are some mildly dilated loops of contrast-filled small bowel up to 4 cm. There is no free air. The re is mild bladder wall thickening. Bony structures are intact.. IMPRESSION: EXTENSIVE ATHEROSCLEROTIC VASCULAR DISEASE. CARDIOMEGALY WITH PLEURAL EFFUSIONS AND BASILAR PULMONARY INFILTRATES COULD RELATE TO CONGESTIVE HEART FAILURE. THIS IS A CHANGE COMPARED TO LAST EXAM. SMALL PERICARDIAL EFFUSION. DILATED SMALL BOWEL SUGGESTIVE OF ILEUS. THIS IS A CHANGE COMPARED TO OLD EXAM.
[2017-07-01 22:52] LABS: Hemoglobin A1C 9.2 % (4.0-6.0)
--- NOTE | 2017-07-01 23:57 | P.HPIM ---
History of Present Illness this is a pleasant 41 yo M with pmh of ESRD on HD, and recurrent N/V and gastroparesis s/p pacemaker, DM ,HF, seizure , HTN , thyroid disorder who presents after he missed his hemodialysis and on admission his cr at 9.0 and K : 6.4, Hb 10.8, on admission pt was found to be Hypertensive with SBP above 200 , and pt was admitted to ICU for HD and close Mx and monitoring of his vitals and labs, also pt found to have fever of 100.4 , pt got antibiotic of vanco and zosyn already when i saw pt in the ICU, pt was undergoing HD, he was poor historian and could not provide detail history , he was complaining from abd pain , with N/V, surgical consult was contacted who recommended CT of abd; pt had Pacemaker at [facility] pt is on dilaudid po for pain control and extra doses is provided for him with the counseling about the risk of cardiopulmonary suppression ,staff to monitor pt while i am outside the hospital , pt verbalized to staff possible suicidal ideation , i discussed with bed side nurse to place 1:1 sitter, suicidal ideation and to consult psych labor relations director Review of Systems 14 point systemic review were negative except what is mentioned in the HPI Past Medical History Past Medical History: Chest Pain / Angina, Heart Failure, Diabetes Mellitus, Dialysis, Eye Disorder, GERD/Reflux, Hypertension, Renal Disease, Seizure Disorder, Thyroid Disorder Additional Past Medical History / Comment(s): IDDM type I/brittle, chronic abdominal pain, gastroparesis, cyclic vomiting and had gastric pacemaker inserted 05/17/17 at [facility], chronic renal failure stage IV, hemodialysis M/W/FR-4 hr, past peritoneal dialysis with peritonitis, pancreatitis, heart murmur, diabetic retinopathy bilaterally, retinal detachment with surgery, bilateral hands, legs and feet diabetic neuropathy, hypothyroid, hiatal hernia, sinusitis , bronchitis, chronic back pain, anemia, last seizure in 2016. History of Any Multi-Drug Resistant Organisms: None Reported Past Surgical History: Cholecystectomy, Heart Catheterization, Hernia Repair Additional Past Surgical History / Comment(s): 05/17/17 Gastric pacemaker inserted at [facility], bilateral retinal reattachment sx, hemodialysis catheter in Feb 2013- lt arm fistual, L inguinal hernia, 2009 cardiac cath. Past Anesthesia/Blood Transfusion Reactions: No Reported Reaction Additional Past Anesthesia/Blood Transfusion Reaction / Comment(s): Uvula edema with gallbladder surgery that occluded airway and caused respiratory arrest. Smoking Status: Former smoker - Past Family History Father History Unknown: Yes Mother History Unknown: Yes Family Medical History: COPD Additional Family Medical History / Comment(s): Mother has never smoked. Mother' s brother had diabetes and multiple sclerosis. Brother(s) Family Medical History: Diabetes Mellitus Additional Family Medical History / Comment(s): multiple sclerosis Medications and Allergies Home Medications Medication Instructions Recorded Confirmed Type LORazepam [Ativan] 1 mg PO DAILY PRN 06/06/14 07/01/17 History amLODIPine BESYLATE [Amlodipine 10 mg PO QAM 06/24/15 07/01/17 History Besylate] Cyclobenzaprine [Flexeril] 10 mg PO TID PRN 02/20/16 07/01/17 History Omeprazole [PriLOSEC] 20 mg PO DAILY 02/20/16 07/01/17 History HYDROmorphone [Dilaudid] 2 mg PO DAILY PRN 03/28/16 07/01/17 History hydrALAZINE HCL [Apresoline] 100 mg PO TID 03/28/16 07/01/17 History hydrOXYzine HCL 10 mg PO Q8H PRN 11/15/16 07/01/17 History Insulin Glargine [Lantus] 12 unit SQ HS #0 12/05/16 07/01/17 Rx chlorproMAZINE [Thorazine] 25 mg PO BID 12/28/16 07/01/17 History Cinacalcet HCl [Sensipar] 60 mg PO DAILY 01/31/17 07/01/17 History Sevelamer [Renvela] 800 mg PO AC-TID 01/31/17 07/01/17 History Gabapentin [Neurontin] 200 mg PO MOWEFR 04/12/17 07/01/17 History Sucralfate [Carafate] 1 gm PO BID #100 ml 04/13/17 07/01/17 Rx Carvedilol [Coreg] 25 mg PO BID 05/24/17 07/01/17 History Docusate [Colace] 100 mg PO DAILY 05/24/17 07/01/17 History INSULIN LISPRO (humaLOG) [humaLOG] See Protocol SQ TID PRN 05/24/17 07/01/17 History Ondansetron Odt [Zofran ODT] 4 mg PO DAILY PRN 05/24/17 07/01/17 History Neela-Cherelle 1 tab PO DAILY 05/24/17 07/01/17 History Sodium Bicarbonate Tab 650 mg PO TID 05/24/17 07/01/17 History Vitamin B Complex 2 cap PO DAILY 05/24/17 07/01/17 History Allergies Allergy/AdvReac Type Severity Reaction Status Date / Time codeine Allergy Rash/Hives Verified 07/01/17 09:17 metoclopramide HCl AdvReac Muscle Verified 07/01/17 09:17 [From Reglan] Spasms morphine AdvReac Increases Verified 07/01/17 09:17 Pain Physical Exam Vitals: Vital Signs Temp Pulse Resp BP Pulse Ox 07/01/17 19:00 91 24 161/74 97 07/01/17 18:45 91 18 167/91 95 07/01/17 18:30 92 15 166/78 95 07/01/17 18:15 92 19 161/81 93 L 07/01/17 18:00 91 21 159/93 92 L 07/01/17 17:45 87 13 157/84 94 L 07/01/17 17:30 89 22 155/83 94 L 07/01/17 17:15 87 23 153/76 92 L 07/01/17 17:00 88 19 163/79 93 L 07/01/17 16:45 92 16 193/91 92 L 07/01/17 16:30 90 22 189/90 93 L 07/01/17 16:15 90 18 222/104 93 L 07/01/17 16:00 98.3 F 91 18 203/109 94 L 07/01/17 15:45 90 21 208/106 95 07/01/17 15:30 89 15 204/105 92 L 07/01/17 15:15 88 15 201/105 92 L 07/01/17 15:00 86 19 203/101 94 L 07/01/17 14:45 83 20 175/91 94 L 07/01/17 14:30 81 16 193/100 93 L 07/01/17 14:19 90 L 07/01/17 14:15 81 24 194/98 94 L 07/01/17 14:00 82 25 H 185/99 92 L 07/01/17 13:45 97.3 F L 80 23 186/95 94 L 07/01/17 13:30 79 22 201/104 96 07/01/17 13:18 79 23 97 07/01/17 13:10 100.4 F H 79 18 203/101 96 07/01/17 13:03 97.0 F L 90 18 200/100 98 07/01/17 12:30 97 07/01/17 12:15 91 07/01/17 11:30 97 F L 92 18 227/111 81 L 07/01/17 11:03 89 20 220/102 07/01/17 10:08 86 18 190/95 92 L 07/01/17 08:49 98.5 F 94 22 225/107 92 L Intake and Output 07/01/17 07/01/17 07/01/17 06:59 14:59 22:59 Intake Total 227.467 Output Total 0 4000 Balance 0 -3772.533 Intake: Intake, IV Titration 77.467 Amount Clevidipine Butyrate 25 77.467 mg In Empty Bag 1 bag @ 1 MG/HR 2 mls/hr IV .Q24H [facility] Rx#:[id number] Oral 150 Output: Urine 0 0 Other 4000 Other: Weight 63.3 kg General Appearance: Alert, cooperative, in moderate distress , appears stated age HEENT: PERRL, Head: ~normocephalic, atrumatic Neck: Supple,~no JVD Chest: Lungs are clear to auscultation bilaterally, respirations unlabored. Heart: Regular rate and rhythm, S1, S2 present, no murmur Abdomen: Soft~non-distended , upper abd tenderness ,no rebound , no guarding , bowel sounds are normal . Has pacemaker in the epigastric area, no open wound Extremities: 1+ edema, peripheral pulses 2+bilaterally. Neurologic: Diffuse weakness Psychiatric: normal Results CBC & Chem 7: 07/01/17 09:41 07/01/17 09:41 Labs: Abnormal Lab Results - Last 24 Hours (Table) 07/01/17 07/01/17 07/01/17 Range/Units 09:20 09:41 09:41 RBC 3.78 L (4.30-5.90) m/uL Hgb 10.8 L D (13.0-17.5) gm/dL Hct 34.6 L (39.0-53.0) % Plt Count 134 L (150-450) k/uL Lymphocytes # 0.7 L (1.0-4.8) k/uL Sodium 146 H (137-145) mmol/L Potassium 6.4 H* (3.5-5.1) mmol/L BUN 89 H* (9-20) mg/dL Creatinine 9.04 H* (0.66-1.25) mg/dL Glucose 279 H (74-99) mg/dL POC Glucose (mg/dL) 292 H (75-99) mg/dL AST 548 H (17-59) U/L ALT 346 H (21-72) U/L Alkaline Phosphatase 261 H (38-126) U/L CK-MB (CK-2) (0.0-2.4) ng/mL 07/01/17 07/01/17 07/01/17 Range/Units 09:41 13:19 17:16 RBC (4.30-5.90) m/uL Hgb (13.0-17.5) gm/dL Hct (39.0-53.0) % Plt Count (150-450) k/uL Lymphocytes # (1.0-4.8) k/uL Sodium (137-145) mmol/L Potassium (3.5-5.1) mmol/L BUN (9-20) mg/dL Creatinine (0.66-1.25) mg/dL Glucose (74-99) mg/dL POC Glucose (mg/dL) 134 H 107 H (75-99) mg/dL AST (17-59) U/L ALT (21-72) U/L Alkaline Phosphatase (38-126) U/L CK-MB (CK-2) 4.3 H* (0.0-2.4) ng/mL 07/01/17 Range/Units 20:04 RBC (4.30-5.90) m/uL Hgb (13.0-17.5) gm/dL Hct (39.0-53.0) % Plt Count (150-450) k/uL Lymphocytes # (1.0-4.8) k/uL Sodium (137-145) mmol/L Potassium (3.5-5.1) mmol/L BUN (9-20) mg/dL Creatinine (0.66-1.25) mg/dL Glucose (74-99) mg/dL POC Glucose (mg/dL) 123 H (75-99) mg/dL AST (17-59) U/L ALT (21-72) U/L Alkaline Phosphatase (38-126) U/L CK-MB (CK-2) (0.0-2.4) ng/mL Thrombosis Risk Factor Assmnt - Choose All That Apply Any of the Below Risk Factors Present?: Yes Each Factor Represents 1 point: Heart failure (<1month) Other Risk Factors: No Other congenital or acquired thrombophilia - If yes, enter type in comment: No Thrombosis Risk Factor Assessment Total Risk Factor Score: 1 Thrombosis Risk Factor Assessment Level: Low Risk Assessment and Plan Plan: -ESRD: missed HD, K 6.4, Hypertensive urgency , neurologist is following pt and pt was transferred to ICU for HD and close monitoring of lytes and vitals -fever of 100.4, unknown source of infection , pt is not making urine at baseline, pt already got zosyn and vancomycin -HTN: c/w same treatment as per ICU team , his BP is better controlled currently -abd pain , could be related to his pacemaker in the epigastrium , surgical team were contacted and recommended CT of abd, pt wanted more pain medication to do the test which was provided and d/w staff - DM on insulin lantus 12 Units HS and ISS DVT px ;SCD , no heparin or AC for uncotrolled BP, plus thrombocytopenia , risks more than benefits at this point GI px carafate prgnsis is guarded given his comorbiditeis and severity of his illness
[2017-07-02] MEDS: ACETAMINOPHEN TAB 500 MG TAB PO PRN (00:31)
[2017-07-02] MEDS: CYCLOBENZAPRINE 10 MG TAB PO PRN (00:31)
[2017-07-02] MEDS: ONDANSETRON 4 MG/2 ML VIAL IVP PRN (00:31)
[2017-07-02] MEDS: CLEVIDIPINE BUTYRATE 25 MG in EMPTY BAG 1 BAG IV SCH (00:34)
[2017-07-02] MEDS ORDERED: DEXTROSE 50%-WATER 50 ML SYRINGE IVP ONE ×3 (04:19→08:04)
[2017-07-02 04:35] LABS: Glucose,Whole Blood <20 mg/dL (75-99)
[2017-07-02 04:35] LABS: Glucose,Whole Blood 121 mg/dL (75-99)
[2017-07-02 05:08] LABS: Glucose,Whole Blood 89 mg/dL (75-99)
[2017-07-02 05:20] LABS: Glucose,Whole Blood 77 mg/dL (75-99)
[2017-07-02 05:30] LABS: Glucose,Whole Blood 70 mg/dL (75-99)
[2017-07-02] MEDS: PIPERACILLIN-TAZOBACTAM 3.375 GM in DEXTROSE/WATER 1 50ML.BAG IVPB SCH ×2 (05:48→16:29)
[2017-07-02 06:02] LABS: Glucose,Whole Blood 51 mg/dL (75-99)
[2017-07-02 06:07] LABS: Glucose,Whole Blood 161 mg/dL (75-99)
[2017-07-02 06:23] LABS: Glucose,Whole Blood 140 mg/dL (75-99)
[2017-07-02 06:40] LABS: Basophils # (A) 0.1 k/uL (0-0.2); Basophils % (A) 1 %; Eosinophils # (A) 0.2 k/uL (0-0.7); Eosinophils % (A) 2 %; HCT 38.6 % (39.0-53.0); HGB 12.3 gm/dL (13.0-17.5); Lymphocytes # (A) 0.5 k/uL (1.0-4.8); Lymphocytes % (A) 6 %; MCH 29.2 pg (25.0-35.0); MCHC 31.8 g/dL (31.0-37.0); MCV 91.9 fL (80.0-100.0); Monocytes # (A) 0.3 k/uL (0-1.0); Monocytes % (A) 3 %; Neutrophils # (A) 7.5 k/uL (1.3-7.7); Neutrophils % (A) 88 %; Platelet Count 120 k/uL (150-450); RDW 15.5 % (11.5-15.5); WBC 8.6 k/uL (3.8-10.6)
[2017-07-02 06:47] LABS: Glucose,Whole Blood 117 mg/dL (75-99)
[2017-07-02 07:09] LABS: Glucose,Whole Blood 91 mg/dL (75-99)
[2017-07-02 07:28] LABS: Glucose,Whole Blood 85 mg/dL (75-99)
[2017-07-02] MEDS ORDERED: PANTOPRAZOLE 40 MG TABLET PO SCH (07:30)
[2017-07-02] MEDS: INSULIN ASPART 100 UNIT/ML 1 ML 10 ML VIAL SQ SCH ×4 (08:04→16:06)
[2017-07-02 08:05] LABS: Glucose,Whole Blood 68 mg/dL (75-99)
[2017-07-02 08:21] LABS: Glucose,Whole Blood 114 mg/dL (75-99)
--- NOTE | 2017-07-02 08:33 | P.GSCN ---
History of Present Illness Consult date: 07/02/17 Reason for Consult: Abdominal pain History of present illness: This is a 41-year-old male with a complex past medical history who presented To the hospital with CHF, fluid overload, and hyperkalemia. Overnight patient had been complaining of worsening abdominal pain. However this morning patient is resting comfortably and has no complaints of abdominal pain his abdomen is completely soft. He denies having any bowel movements. He denies any nausea or vomiting at this time. A computed tomography scan of his abdomen and pelvis overnight showed no acute intra-abdominal process. No fevers or chills. Patient does have a past surgical history significant for gastric pacemaker, cholecystectomy, and hernia repair. Past Medical History Past Medical History: Chest Pain / Angina, Heart Failure, Diabetes Mellitus, Dialysis, Eye Disorder, GERD/Reflux, Hypertension, Renal Disease, Seizure Disorder, Thyroid Disorder Additional Past Medical History / Comment(s): IDDM type I/brittle, chronic abdominal pain, gastroparesis, cyclic vomiting and had gastric pacemaker inserted 05/17/17 at [facility], chronic renal failure stage IV, hemodialysis M/W/FR-4 hr, past peritoneal dialysis with peritonitis, pancreatitis, heart murmur, diabetic retinopathy bilaterally, retinal detachment with surgery, bilateral hands, legs and feet diabetic neuropathy, hypothyroid, hiatal hernia, sinusitis , bronchitis, chronic back pain, anemia, last seizure in 2015. History of Any Multi-Drug Resistant Organisms: None Reported Past Surgical History: Cholecystectomy, Heart Catheterization, Hernia Repair Additional Past Surgical History / Comment(s): 05/17/17 Gastric pacemaker inserted at [facility], bilateral retinal reattachment sx, hemodialysis catheter in Feb 2013- lt arm fistual, L inguinal hernia, 2009 cardiac cath. Past Anesthesia/Blood Transfusion Reactions: No Reported Reaction Additional Past Anesthesia/Blood Transfusion Reaction / Comm: Uvula edema with gallbladder surgery that occluded airway and caused respiratory arrest. Smoking Status: Former smoker - Past Family History Father History Unknown: Yes Mother History Unknown: Yes Family Medical History: COPD Additional Family Medical History / Comment(s): Mother has never smoked. Mother' s brother had diabetes and multiple sclerosis. Brother(s) Family Medical History: Diabetes Mellitus Additional Family Medical History / Comment(s): multiple sclerosis Medications and Allergies Home Medications Medication Instructions Recorded Confirmed Type LORazepam [Ativan] 1 mg PO DAILY PRN 06/06/14 07/01/17 History amLODIPine BESYLATE [Amlodipine 10 mg PO QAM 06/24/15 07/01/17 History Besylate] Cyclobenzaprine [Flexeril] 10 mg PO TID PRN 02/20/16 07/01/17 History Omeprazole [PriLOSEC] 20 mg PO DAILY 02/20/16 07/01/17 History HYDROmorphone [Dilaudid] 2 mg PO DAILY PRN 03/28/16 07/01/17 History hydrALAZINE HCL [Apresoline] 100 mg PO TID 03/28/16 07/01/17 History hydrOXYzine HCL 10 mg PO Q8H PRN 11/15/16 07/01/17 History Insulin Glargine [Lantus] 12 unit SQ HS #0 12/05/16 07/01/17 Rx chlorproMAZINE [Thorazine] 25 mg PO BID 12/28/16 07/01/17 History Cinacalcet HCl [Sensipar] 60 mg PO DAILY 01/31/17 07/01/17 History Sevelamer [Renvela] 800 mg PO AC-TID 01/31/17 07/01/17 History Gabapentin [Neurontin] 200 mg PO MOWEFR 04/12/17 07/01/17 History Sucralfate [Carafate] 1 gm PO BID #100 ml 04/13/17 07/01/17 Rx Carvedilol [Coreg] 25 mg PO BID 05/24/17 07/01/17 History Docusate [Colace] 100 mg PO DAILY 05/24/17 07/01/17 History INSULIN LISPRO (humaLOG) [humaLOG] See Protocol SQ TID PRN 05/24/17 07/01/17 History Ondansetron Odt [Zofran ODT] 4 mg PO DAILY PRN 05/24/17 07/01/17 History Neela-Cherelle 1 tab PO DAILY 05/24/17 07/01/17 History Sodium Bicarbonate Tab 650 mg PO TID 05/24/17 07/01/17 History Vitamin B Complex 2 cap PO DAILY 05/24/17 07/01/17 History Allergies Allergy/AdvReac Type Severity Reaction Status Date / Time codeine Allergy Rash/Hives Verified 07/01/17 09:17 metoclopramide HCl AdvReac Muscle Verified 07/01/17 09:17 [From Reglan] Spasms morphine AdvReac Increases Verified 07/01/17 09:17 Pain Surgical - Exam Osteopathic Statement: *. No significant issues noted on an osteopathic structural exam other than those noted in the History and Physical/Consult. Vital Signs Temp Pulse Resp BP Pulse Ox 98.5 F 94 22 225/107 92 L 07/01/17 08:49 07/01/17 08:49 07/01/17 08:49 07/01/17 08:49 07/01/17 08:49 - General well developed, well nourished, no distress - Eyes PERRL - ENT normal mucosa - Neck no masses, no bruits, trachea midline - Respiratory normal expansion, normal respiratory effort - Cardiovascular Rhythm: regular - Abdomen non distended, no R/R/G Abdomen: soft, non tender - Neurologic normal coordination, normal sensation - Psychiatric oriented to person Results - Labs 07/02/17 06:26 07/01/17 09:41 Abnormal Lab Results - Last 24 Hours (Table) 07/01/17 07/01/17 07/01/17 Range/Units 09:20 09:41 09:41 RBC 3.78 L (4.30-5.90) m/uL Hgb 10.8 L D (13.0-17.5) gm/dL Hct 34.6 L (39.0-53.0) % Plt Count 134 L (150-450) k/uL Lymphocytes # 0.7 L (1.0-4.8) k/uL Sodium 146 H (137-145) mmol/L Potassium 6.4 H* (3.5-5.1) mmol/L BUN 89 H* (9-20) mg/dL Creatinine 9.04 H* (0.66-1.25) mg/dL Glucose 279 H (74-99) mg/dL POC Glucose (mg/dL) 292 H (75-99) mg/dL Hemoglobin A1c (4.0-6.0) % AST 548 H (17-59) U/L ALT 346 H (21-72) U/L Alkaline Phosphatase 261 H (38-126) U/L CK-MB (CK-2) (0.0-2.4) ng/mL 07/01/17 07/01/17 07/01/17 Range/Units 09:41 13:19 14:39 RBC (4.30-5.90) m/uL Hgb (13.0-17.5) gm/dL Hct (39.0-53.0) % Plt Count (150-450) k/uL Lymphocytes # (1.0-4.8) k/uL Sodium (137-145) mmol/L Potassium (3.5-5.1) mmol/L BUN (9-20) mg/dL Creatinine (0.66-1.25) mg/dL Glucose (74-99) mg/dL POC Glucose (mg/dL) 134 H (75-99) mg/dL Hemoglobin A1c 9.2 H (4.0-6.0) % AST (17-59) U/L ALT (21-72) U/L Alkaline Phosphatase (38-126) U/L CK-MB (CK-2) 4.3 H* (0.0-2.4) ng/mL 07/01/17 07/01/17 07/02/17 Range/Units 17:16 20:04 04:20 RBC (4.30-5.90) m/uL Hgb (13.0-17.5) gm/dL Hct (39.0-53.0) % Plt Count (150-450) k/uL Lymphocytes # (1.0-4.8) k/uL Sodium (137-145) mmol/L Potassium (3.5-5.1) mmol/L BUN (9-20) mg/dL Creatinine (0.66-1.25) mg/dL Glucose (74-99) mg/dL POC Glucose (mg/dL) 107 H 123 H <20 L (75-99) mg/dL Hemoglobin A1c (4.0-6.0) % AST (17-59) U/L ALT (21-72) U/L Alkaline Phosphatase (38-126) U/L CK-MB (CK-2) (0.0-2.4) ng/mL 07/02/17 07/02/17 07/02/17 Range/Units 04:33 05:28 05:50 RBC (4.30-5.90) m/uL Hgb (13.0-17.5) gm/dL Hct (39.0-53.0) % Plt Count (150-450) k/uL Lymphocytes # (1.0-4.8) k/uL Sodium (137-145) mmol/L Potassium (3.5-5.1) mmol/L BUN (9-20) mg/dL Creatinine (0.66-1.25) mg/dL Glucose (74-99) mg/dL POC Glucose (mg/dL) 121 H 70 L 51 L (75-99) mg/dL Hemoglobin A1c (4.0-6.0) % AST (17-59) U/L ALT (21-72) U/L Alkaline Phosphatase (38-126) U/L CK-MB (CK-2) (0.0-2.4) ng/mL 07/02/17 07/02/17 07/02/17 Range/Units 06:05 06:21 06:26 RBC 4.20 L (4.30-5.90) m/uL Hgb 12.3 L (13.0-17.5) gm/dL Hct 38.6 L (39.0-53.0) % Plt Count 120 L (150-450) k/uL Lymphocytes # 0.5 L (1.0-4.8) k/uL Sodium (137-145) mmol/L Potassium (3.5-5.1) mmol/L BUN (9-20) mg/dL Creatinine (0.66-1.25) mg/dL Glucose (74-99) mg/dL POC Glucose (mg/dL) 161 H 140 H (75-99) mg/dL Hemoglobin A1c (4.0-6.0) % AST (17-59) U/L ALT (21-72) U/L Alkaline Phosphatase (38-126) U/L CK-MB (CK-2) (0.0-2.4) ng/mL 07/02/17 07/02/17 07/02/17 Range/Units 06:45 08:02 08:20 RBC (4.30-5.90) m/uL Hgb (13.0-17.5) gm/dL Hct (39.0-53.0) % Plt Count (150-450) k/uL Lymphocytes # (1.0-4.8) k/uL Sodium (137-145) mmol/L Potassium (3.5-5.1) mmol/L BUN (9-20) mg/dL Creatinine (0.66-1.25) mg/dL Glucose (74-99) mg/dL POC Glucose (mg/dL) 117 H 68 L 114 H (75-99) mg/dL Hemoglobin A1c (4.0-6.0) % AST (17-59) U/L ALT (21-72) U/L Alkaline Phosphatase (38-126) U/L CK-MB (CK-2) (0.0-2.4) ng/mL Diabetes panel 07/01/17 07/01/17 Range/Units 09:41 14:39 Sodium 146 H (137-145) mmol/L Potassium 6.4 H* (3.5-5.1) mmol/L Chloride 98 (98-107) mmol/L Carbon Dioxide 27 (22-30) mmol/L BUN 89 H* (9-20) mg/dL Creatinine 9.04 H* (0.66-1.25) mg/dL Glucose 279 H (74-99) mg/dL Hemoglobin A1c 9.2 H (4.0-6.0) % Calcium 9.0 (8.4-10.2) mg/dL AST 548 H (17-59) U/L ALT 346 H (21-72) U/L Alkaline Phosphatase 261 H (38-126) U/L Total Protein 7.3 (6.3-8.2) g/dL Albumin 4.5 (3.5-5.0) g/dL Calcium panel 07/01/17 Range/Units 09:41 Calcium 9.0 (8.4-10.2) mg/dL Albumin 4.5 (3.5-5.0) g/dL Pituitary panel 07/01/17 Range/Units 09:41 Sodium 146 H (137-145) mmol/L Potassium 6.4 H* (3.5-5.1) mmol/L Chloride 98 (98-107) mmol/L Carbon Dioxide 27 (22-30) mmol/L BUN 89 H* (9-20) mg/dL Creatinine 9.04 H* (0.66-1.25) mg/dL Glucose 279 H (74-99) mg/dL Calcium 9.0 (8.4-10.2) mg/dL Adrenal panel 07/01/17 Range/Units 09:41 Sodium 146 H (137-145) mmol/L Potassium 6.4 H* (3.5-5.1) mmol/L Chloride 98 (98-107) mmol/L Carbon Dioxide 27 (22-30) mmol/L BUN 89 H* (9-20) mg/dL Creatinine 9.04 H* (0.66-1.25) mg/dL Glucose 279 H (74-99) mg/dL Calcium 9.0 (8.4-10.2) mg/dL Total Bilirubin 1.0 (0.2-1.3) mg/dL AST 548 H (17-59) U/L ALT 346 H (21-72) U/L Alkaline Phosphatase 261 H (38-126) U/L Total Protein 7.3 (6.3-8.2) g/dL Albumin 4.5 (3.5-5.0) g/dL - Imaging CT scan - abdomen: report reviewed, image reviewed CT scan - pelvis: report reviewed, image reviewed Assessment and Plan Assessment: Abdominal pain resolved Plan: Patient has no abdominal pain this morning and his pain is resolved. He may be started on a clear liquid diet and advance as tolerated. Abdominal flat plate can be obtained to ensure oral contrast transits to the colon. No plans for acute surgical intervention at this time
[2017-07-02 08:37] LABS: Albumin 3.9 g/dL (3.5-5.0); Calcium 8.6 mg/dL (8.4-10.2); Magnesium 2.3 mg/dL (1.6-2.3); Phosphorus 5.9 mg/dL (2.5-4.5); Potassium 4.2 mmol/L (3.5-5.1); Total Bilirubin 1.7 mg/dL (0.2-1.3); Total Protein 6.8 g/dL (6.3-8.2)
--- NOTE | 2017-07-02 08:56 | XR ---
EXAMINATION TYPE: XR chest 1V DATE OF EXAM: 07/02/2017 COMPARISON: 07/01/2017 HISTORY: Chest pain and difficulty breathing TECHNIQUE: Single frontal view of the chest is obtained. FINDINGS: There is improved aeration in the lungs with mild pulmonary vascular congestion remaining. Cardia mediastinal silhouette is enlarged. Multifocal linear platelike horizontally oriented subsegm ental atelectasis is seen within the right lower lung. Blunting the costophrenic angles likely relate s to very trace pleural effusions. No sizable pneumothorax. Osseous structures are grossly intact. IMPRESSION: Improved aeration of the lungs with mild residual pulmonary vascular congestion likely o n the basis of decompensated congestive heart failure. Probable very trace pleural effusions.
[2017-07-02] MEDS ORDERED: DOCUSATE 100 MG CAP PO SCH (09:00)
[2017-07-02] MEDS ORDERED: CINACALCET 30 MG TAB PO SCH (09:00)
[2017-07-02] MEDS ORDERED: amLODIPine 10 MG TAB PO SCH (09:00)
[2017-07-02 09:04] LABS: Glucose,Whole Blood 91 mg/dL (75-99)
--- NOTE | 2017-07-02 09:04 | XR ---
EXAMINATION TYPE: XR abdomen 1V DATE OF EXAM: 07/02/2017 8:57 AM CLINICAL HISTORY: Ileus and abdominal pain TECHNIQUE: Supine image of the abdomen is obtained. COMPARISON: 07/01/2017 FINDINGS: Scattered gas is seen in non-distended small bowel loops. Gas and fecal material is seen i n non-distended colon. The previously seen dilated loop of small bowel is no longer visualized. Degen erative changes of the spine and femoral acetabular joints are again noted with surgical clips in the right mid abdomen and midline nerve stimulator. Atherosclerosis is again seen. IMPRESSION: Moderate amount of retained colonic stool in a nonobstructive bowel gas pattern. The previously seen dilated small bowel is no longer visualized.
[2017-07-02] MEDS: CARVEDILOL 12.5 MG TAB PO SCH ×2 (09:19→16:28)
[2017-07-02] MEDS: chlorproMAZINE 25 MG TAB PO SCH (09:20)
[2017-07-02] MEDS: hydrALAZINE HCL 50 MG TAB PO SCH ×2 (09:20→16:28)
[2017-07-02] MEDS: SODIUM BICARBONATE TAB 650 MG TAB PO SCH ×2 (09:20→16:28)
[2017-07-02] MEDS: SUCRALFATE 1 GM TAB PO SCH (09:21)
[2017-07-02] MEDS: SEVELAMER 800 MG TAB PO SCH ×3 (09:21→16:28)
[2017-07-02 09:48] LABS: Glucose,Whole Blood 90 mg/dL (75-99)
[2017-07-02 10:13] LABS: Glucose,Whole Blood 76 mg/dL (75-99)
--- NOTE | 2017-07-02 10:30 | P.PN ---
Subjective Progress Note Date: 07/02/17 Principal diagnosis: Acute pulmonary edema and fluid overload secondary to renal failure This is a 41-year-old white male with history of end-stage renal disease, on hemodialysis, history of diabetes and gastroparesis, hypertension, seizure disorder, hypothyroidism, insulin-dependent diabetes mellitus, cyclic vomiting and abdominal pain secondary to gastroparesis requiring a gastric pacemaker insertion at [facility]. Past peritoneal dialysis with peritonitis, previous history of pancreatitis, diabetic retinopathy, diabetic neuropathy, patient presented to the ER today with nausea, vomiting, of one day duration. Patient was also complaining of vague abdominal pain in the upper abdomen, had many previous similar presentations in the past related to gastroparesis. In the ER, patient received a fluid bolus for low blood pressure, and later on his chest x-ray showed evidence of pulmonary edema/fluid overload. O2 saturation was very marginal even on high flow nasal cannula, patient was placed on a nonrebreather mask, admitted to the ICU, and I was asked to see him on consultation, nephrology was asked to see him on consultation, and we will arrange for hemodialysis as soon as possible. His labs showed relatively normal CBC. Potassium was 6.4. BUN 89 creatinine 9.0 for blood sugar 279 elevated transaminases were noted. ProBNP level was 81,000. Serum ketones negative. I evaluated the patient in the ICU, I recommended switching him to a high flow nasal cannula, and I discussed his condition with the aerographer ribbon cleaner Dr. Rush, she will arrange for hemodialysis as soon as possible. Patient has mostly symptoms of nausea vomiting abdominal pain, and shortness of breath. No fever no chills no hemoptysis. No melena no hematemesis. Reevaluated today on 07/02/2017, patient seems to be doing much better today, underwent hemodialysis yesterday, 4 L of fluids were removed, and he is undergoing hemodialysis again today. Patient is off oxygen, he is now on room air, and his O2 saturation is in the 90s. On room air. Labs were reviewed he had a WBC count of 8.6 hemoglobin is 12.3 basic metabolic profile is relatively normal, anion gap is still a bit elevated at 19, BUN is 46 creatinine is 5.38. Blood pressure seems to be better controlled, his liver enzymes are also improving significantly over the last 24 hours. His abdominal pain has resolved. No further episodes of nausea and vomiting. I plan to transfer the patient out of the ICU to a monitor bed on selective today after his dialysis is over. Objective - Vital Signs Vital signs: Vital Signs Temp 99 F 07/02/17 00:00 Pulse 50 L 07/02/17 07:00 Resp 13 07/02/17 07:00 BP 114/67 07/02/17 07:00 Pulse Ox 99 07/02/17 07:53 Intake & Output 07/01/17 07/02/17 07/02/17 18:59 06:59 18:59 Intake Total 180.267 382.467 12.5 Output Total 4000 0 Balance -3819.733 382.467 12.5 Weight 63.3 kg 60.3 kg Intake: IV 305.0 12.5 Piperacillin-Tazobactam 3 50.0 12.5 .375 gm In Dextrose/Water 1 50ml.bag @ 12.5 mls/hr IVPB Q12H [facility] Rx#: [id number] Vancomycin 1,000 mg In 255 Sodium Chloride 0.9% 250 ml @ 125 mls/hr IVPB ONCE ONE Rx#:[id number] Intake, IV Titration 30.267 77.467 Amount Clevidipine Butyrate 25 30.267 77.467 mg In Empty Bag 1 bag @ 1 MG/HR 2 mls/hr IV .Q24H [facility] Rx#:[id number] Oral 150 Output: Urine 0 0 Other 4000 - Exam General: Physical exam revealed a 61-year-old white male in no form of respiratory distress., Presently on nasal cannula. Eye: Pupils are equal, round and reactive to light, extra-ocular movements are intact. No nystagmus. There is normal conjunctiva bilaterally. No signs of icterus. Ears, nose, mouth and throat: Moist mucous membranes, nasal mucosa is normal. Neck: Supple no neck masses no JVD no stridor. Cardiovascular: Normal S1 and S2, no S3 gallop. Respiratory: Minimal fine crackles at the bases, symmetrical chest expansion, no chest wall tenderness. Gastrointestinal: Abdomen soft on palpation. Does have surgical incision is healing well to the left side of the upper abdomen. No rebound tenderness. No guarding. No CVA tenderness. Gastric pacemaker palpable in the left upper quadrant. Musculoskeletal: Normal ROM, no tenderness. Strength 5/5. Sensation intact. Neurological: A&O x 3. CN II-XII intact, There are no obvious motor or sensory deficits. Coordination appears grossly intact. Speech is normal. Skin: Skin is warm and dry and no rashes or lesions are noted. Psychiatric: Normal mood affect and mental status examination. Lymphatics: No lymphadenopathy. - Labs CBC & Chem 7: 07/02/17 06:26 07/02/17 06:26 Labs: Abnormal Lab Results - Last 24 Hours (Table) 07/01/17 07/01/17 07/01/17 Range/Units 09:41 09:41 13:19 RBC (4.30-5.90) m/uL Hgb (13.0-17.5) gm/dL Hct (39.0-53.0) % Plt Count (150-450) k/uL Lymphocytes # (1.0-4.8) k/uL Sodium 146 H (137-145) mmol/L Potassium 6.4 H* (3.5-5.1) mmol/L Chloride (98-107) mmol/L BUN 89 H* (9-20) mg/dL Creatinine 9.04 H* (0.66-1.25) mg/dL Glucose 279 H (74-99) mg/dL POC Glucose (mg/dL) 134 H (75-99) mg/dL Hemoglobin A1c (4.0-6.0) % Phosphorus (2.5-4.5) mg/dL Total Bilirubin (0.2-1.3) mg/dL AST 548 H (17-59) U/L ALT 346 H (21-72) U/L Alkaline Phosphatase 261 H (38-126) U/L CK-MB (CK-2) 4.3 H* (0.0-2.4) ng/mL 07/01/17 07/01/17 07/01/17 Range/Units 14:39 17:16 20:04 RBC (4.30-5.90) m/uL Hgb (13.0-17.5) gm/dL Hct (39.0-53.0) % Plt Count (150-450) k/uL Lymphocytes # (1.0-4.8) k/uL Sodium (137-145) mmol/L Potassium (3.5-5.1) mmol/L Chloride (98-107) mmol/L BUN (9-20) mg/dL Creatinine (0.66-1.25) mg/dL Glucose (74-99) mg/dL POC Glucose (mg/dL) 107 H 123 H (75-99) mg/dL Hemoglobin A1c 9.2 H (4.0-6.0) % Phosphorus (2.5-4.5) mg/dL Total Bilirubin (0.2-1.3) mg/dL AST (17-59) U/L ALT (21-72) U/L Alkaline Phosphatase (38-126) U/L CK-MB (CK-2) (0.0-2.4) ng/mL 07/02/17 07/02/17 07/02/17 Range/Units 04:20 04:33 05:28 RBC (4.30-5.90) m/uL Hgb (13.0-17.5) gm/dL Hct (39.0-53.0) % Plt Count (150-450) k/uL Lymphocytes # (1.0-4.8) k/uL Sodium (137-145) mmol/L Potassium (3.5-5.1) mmol/L Chloride (98-107) mmol/L BUN (9-20) mg/dL Creatinine (0.66-1.25) mg/dL Glucose (74-99) mg/dL POC Glucose (mg/dL) <20 L 121 H 70 L (75-99) mg/dL Hemoglobin A1c (4.0-6.0) % Phosphorus (2.5-4.5) mg/dL Total Bilirubin (0.2-1.3) mg/dL AST (17-59) U/L ALT (21-72) U/L Alkaline Phosphatase (38-126) U/L CK-MB (CK-2) (0.0-2.4) ng/mL 07/02/17 07/02/17 07/02/17 Range/Units 05:50 06:05 06:21 RBC (4.30-5.90) m/uL Hgb (13.0-17.5) gm/dL Hct (39.0-53.0) % Plt Count (150-450) k/uL Lymphocytes # (1.0-4.8) k/uL Sodium (137-145) mmol/L Potassium (3.5-5.1) mmol/L Chloride (98-107) mmol/L BUN (9-20) mg/dL Creatinine (0.66-1.25) mg/dL Glucose (74-99) mg/dL POC Glucose (mg/dL) 51 L 161 H 140 H (75-99) mg/dL Hemoglobin A1c (4.0-6.0) % Phosphorus (2.5-4.5) mg/dL Total Bilirubin (0.2-1.3) mg/dL AST (17-59) U/L ALT (21-72) U/L Alkaline Phosphatase (38-126) U/L CK-MB (CK-2) (0.0-2.4) ng/mL 07/02/17 07/02/17 07/02/17 Range/Units 06:26 06:26 06:45 RBC 4.20 L (4.30-5.90) m/uL Hgb 12.3 L (13.0-17.5) gm/dL Hct 38.6 L (39.0-53.0) % Plt Count 120 L (150-450) k/uL Lymphocytes # 0.5 L (1.0-4.8) k/uL Sodium (137-145) mmol/L Potassium (3.5-5.1) mmol/L Chloride 97 L (98-107) mmol/L BUN 46 H (9-20) mg/dL Creatinine 5.38 H* (0.66-1.25) mg/dL Glucose 121 H (74-99) mg/dL POC Glucose (mg/dL) 117 H (75-99) mg/dL Hemoglobin A1c (4.0-6.0) % Phosphorus 5.9 H (2.5-4.5) mg/dL Total Bilirubin 1.7 H (0.2-1.3) mg/dL AST 243 H (17-59) U/L ALT 295 H (21-72) U/L Alkaline Phosphatase 225 H (38-126) U/L CK-MB (CK-2) (0.0-2.4) ng/mL 07/02/17 07/02/17 Range/Units 08:02 08:20 RBC (4.30-5.90) m/uL Hgb (13.0-17.5) gm/dL Hct (39.0-53.0) % Plt Count (150-450) k/uL Lymphocytes # (1.0-4.8) k/uL Sodium (137-145) mmol/L Potassium (3.5-5.1) mmol/L Chloride (98-107) mmol/L BUN (9-20) mg/dL Creatinine (0.66-1.25) mg/dL Glucose (74-99) mg/dL POC Glucose (mg/dL) 68 L 114 H (75-99) mg/dL Hemoglobin A1c (4.0-6.0) % Phosphorus (2.5-4.5) mg/dL Total Bilirubin (0.2-1.3) mg/dL AST (17-59) U/L ALT (21-72) U/L Alkaline Phosphatase (38-126) U/L CK-MB (CK-2) (0.0-2.4) ng/mL Assessment and Plan Assessment: Impression: 1 acute hypoxic respiratory failure secondary to acute pulmonary edema, fluid overload secondary to chronic renal failure stage IV, possibility of underlying pneumonia is felt to be less likely, however considering the patient is febrile on admission, will empirically continue Zosyn. For now.. Blood cultures will be ordered, and if positive will be addressed accordingly. 2 acute hyperkalemia secondary to chronic renal failure 3 multiple comorbidities including chronic renal failure stage IV, on hemodialysis, insulin-dependent diabetes type 1, chronic gastroparesis, cyclic vomiting and gastric pacemaker insertion, diabetic retinopathy and neuropathy, history of hypothyroidism, history of seizure disorder, and chronic anemia secondary to renal failure. Recommendation: Continue present supportive care measures including hemodialysis , blood pressure control and pain control. Continue antibiotics, follow-up chest x-ray in a.m., consider transferring the patient out of the ICU to a monitor bed on selective today.. Time with Patient: Less than 30
[2017-07-02 10:44] LABS: Glucose,Whole Blood 94 mg/dL (75-99)
[2017-07-02 11:12] LABS: Glucose,Whole Blood 95 mg/dL (75-99)
--- NOTE | 2017-07-02 11:15 | P.PN ---
Subjective this is a pleasant 41 yo M with pmh of ESRD on HD, and recurrent N/V and gastroparesis s/p pacemaker, DM ,HF, seizure , HTN , thyroid disorder who presents after he missed his hemodialysis and on admission his cr at 9.0 and K : 6.4, Hb 10.8, on admission pt was found to be Hypertensive with SBP above 200 , and pt was admitted to ICU for HD and close Mx and monitoring of his vitals and labs, also pt found to have fever of 100.4 , pt got antibiotic of vanco and zosyn already when i saw pt in the ICU, pt was undergoing HD, he was poor historian and could not provide detail history , he was complaining from abd pain , with N/V, surgical consult was contacted who recommended CT of abd; pt had Pacemaker at [employer] [facility] [employer] pt is on dilaudid po for pain control and extra doses is provided for him with the counseling about the risk of cardiopulmonary suppression ,staff to monitor pt while i am outside the hospital , pt verbalized to staff possible suicidal ideation , i discussed with bed side nurse to place 1:1 sitter, suicidal ideation and to consult psych operations lieutenant 07/02/2017 Patient showing improvement, his abdominal pain is significantly improved with some residual, patient was evaluated by surgical team and repeat abdominal x- ray shows improvement, advance diet, patient was developing hypoglycemia and was replaced with sugar and juices and oral wound, his sugars is stable now, hold Lantus. Patient's on the second round of dialysis today and plan to be sent to the general medical floor after dialysis. Patient states "I don't want to live like this anymore" Objective - Vital Signs Vital signs: Vital Signs Temp 99 F 07/02/17 00:00 Pulse 50 L 07/02/17 07:00 Resp 13 07/02/17 07:00 BP 114/67 07/02/17 07:00 Pulse Ox 99 07/02/17 07:53 Intake & Output 07/01/17 07/02/17 07/02/17 18:59 06:59 18:59 Intake Total 180.267 382.467 12.5 Output Total 4000 0 Balance -3819.733 382.467 12.5 Weight 63.3 kg 60.3 kg Intake: IV 305.0 12.5 Piperacillin-Tazobactam 3 50.0 12.5 .375 gm In Dextrose/Water 1 50ml.bag @ 12.5 mls/hr IVPB Q12H [facility] Rx#: [id number] Vancomycin 1,000 mg In 255 Sodium Chloride 0.9% 250 ml @ 125 mls/hr IVPB ONCE ONE Rx#:[id number] Intake, IV Titration 30.267 77.467 Amount Clevidipine Butyrate 25 30.267 77.467 mg In Empty Bag 1 bag @ 1 MG/HR 2 mls/hr IV .Q24H [facility] Rx#:[id number] Oral 150 Output: Urine 0 0 Other 4000 - Exam General Appearance: Alert, cooperative, in no distress , he looks tired HEENT: PERRL, Head: ~normocephalic, atrumatic Neck: Supple,~no JVD Chest: Lungs are clear to auscultation bilaterally, respirations unlabored. Heart: Regular rate and rhythm, S1, S2 present, no murmur Abdomen: Soft~non-distended , upper abd tenderness improved compared to yesterday ,no rebound , no guarding , bowel sounds are normal . Has pacemaker in the epigastric area, no open wound Extremities: no edema, peripheral pulses 2+bilaterally. Neurologic: Diffuse weakness, he moves all extremities symmetrically and strength, no sensation loss, meningeal signs are absent Psychiatric: normal - Labs CBC & Chem 7: 07/02/17 06:26 07/02/17 06:26 Labs: Abnormal Lab Results - Last 24 Hours (Table) 07/01/17 07/01/17 07/01/17 Range/Units 09:41 13:19 14:39 RBC (4.30-5.90) m/uL Hgb (13.0-17.5) gm/dL Hct (39.0-53.0) % Plt Count (150-450) k/uL Lymphocytes # (1.0-4.8) k/uL Chloride (98-107) mmol/L BUN (9-20) mg/dL Creatinine (0.66-1.25) mg/dL Glucose (74-99) mg/dL POC Glucose (mg/dL) 134 H (75-99) mg/dL Hemoglobin A1c 9.2 H (4.0-6.0) % Phosphorus (2.5-4.5) mg/dL Total Bilirubin (0.2-1.3) mg/dL AST (17-59) U/L ALT (21-72) U/L Alkaline Phosphatase (38-126) U/L CK-MB (CK-2) 4.3 H* (0.0-2.4) ng/mL 07/01/17 07/01/17 07/02/17 Range/Units 17:16 20:04 04:20 RBC (4.30-5.90) m/uL Hgb (13.0-17.5) gm/dL Hct (39.0-53.0) % Plt Count (150-450) k/uL Lymphocytes # (1.0-4.8) k/uL Chloride (98-107) mmol/L BUN (9-20) mg/dL Creatinine (0.66-1.25) mg/dL Glucose (74-99) mg/dL POC Glucose (mg/dL) 107 H 123 H <20 L (75-99) mg/dL Hemoglobin A1c (4.0-6.0) % Phosphorus (2.5-4.5) mg/dL Total Bilirubin (0.2-1.3) mg/dL AST (17-59) U/L ALT (21-72) U/L Alkaline Phosphatase (38-126) U/L CK-MB (CK-2) (0.0-2.4) ng/mL 07/02/17 07/02/17 07/02/17 Range/Units 04:33 05:28 05:50 RBC (4.30-5.90) m/uL Hgb (13.0-17.5) gm/dL Hct (39.0-53.0) % Plt Count (150-450) k/uL Lymphocytes # (1.0-4.8) k/uL Chloride (98-107) mmol/L BUN (9-20) mg/dL Creatinine (0.66-1.25) mg/dL Glucose (74-99) mg/dL POC Glucose (mg/dL) 121 H 70 L 51 L (75-99) mg/dL Hemoglobin A1c (4.0-6.0) % Phosphorus (2.5-4.5) mg/dL Total Bilirubin (0.2-1.3) mg/dL AST (17-59) U/L ALT (21-72) U/L Alkaline Phosphatase (38-126) U/L CK-MB (CK-2) (0.0-2.4) ng/mL 07/02/17 07/02/17 07/02/17 Range/Units 06:05 06:21 06:26 RBC 4.20 L (4.30-5.90) m/uL Hgb 12.3 L (13.0-17.5) gm/dL Hct 38.6 L (39.0-53.0) % Plt Count 120 L (150-450) k/uL Lymphocytes # 0.5 L (1.0-4.8) k/uL Chloride (98-107) mmol/L BUN (9-20) mg/dL Creatinine (0.66-1.25) mg/dL Glucose (74-99) mg/dL POC Glucose (mg/dL) 161 H 140 H (75-99) mg/dL Hemoglobin A1c (4.0-6.0) % Phosphorus (2.5-4.5) mg/dL Total Bilirubin (0.2-1.3) mg/dL AST (17-59) U/L ALT (21-72) U/L Alkaline Phosphatase (38-126) U/L CK-MB (CK-2) (0.0-2.4) ng/mL 07/02/17 07/02/17 07/02/17 Range/Units 06:26 06:45 08:02 RBC (4.30-5.90) m/uL Hgb (13.0-17.5) gm/dL Hct (39.0-53.0) % Plt Count (150-450) k/uL Lymphocytes # (1.0-4.8) k/uL Chloride 97 L (98-107) mmol/L BUN 46 H (9-20) mg/dL Creatinine 5.38 H* (0.66-1.25) mg/dL Glucose 121 H (74-99) mg/dL POC Glucose (mg/dL) 117 H 68 L (75-99) mg/dL Hemoglobin A1c (4.0-6.0) % Phosphorus 5.9 H (2.5-4.5) mg/dL Total Bilirubin 1.7 H (0.2-1.3) mg/dL AST 243 H (17-59) U/L ALT 295 H (21-72) U/L Alkaline Phosphatase 225 H (38-126) U/L CK-MB (CK-2) (0.0-2.4) ng/mL 07/02/17 Range/Units 08:20 RBC (4.30-5.90) m/uL Hgb (13.0-17.5) gm/dL Hct (39.0-53.0) % Plt Count (150-450) k/uL Lymphocytes # (1.0-4.8) k/uL Chloride (98-107) mmol/L BUN (9-20) mg/dL Creatinine (0.66-1.25) mg/dL Glucose (74-99) mg/dL POC Glucose (mg/dL) 114 H (75-99) mg/dL Hemoglobin A1c (4.0-6.0) % Phosphorus (2.5-4.5) mg/dL Total Bilirubin (0.2-1.3) mg/dL AST (17-59) U/L ALT (21-72) U/L Alkaline Phosphatase (38-126) U/L CK-MB (CK-2) (0.0-2.4) ng/mL Assessment and Plan Plan: -ESRD: missed HD, potassium and blood pressure and other labs are improved after him on dialysis. He is getting the second round of hemodialysis today possible transfer to the general medical floor today and close monitoring of lytes and vitals -fever of 100.4, unknown source of infection , possible pneumonia pt is not making urine at baseline, pt already got vancomycin and c/w zosyn -HTN: c/w same treatment as per ICU team , his BP is better controlled currently -abd pain , could be related to his pacemaker in the epigastrium , surgical team were contacted and recommended CT of abd, pt wanted more pain medication to do the test which was provided and d/w staff - DM on insulin lantus 12 Units HS and ISS, hold Lantus in view of hypoglycemia mostly related to nothing by mouth when he came in, continue with sliding scale for now line-patient showing suicidal ideation, continue with one-to-one sitter , psychological consultation , and suicidal precautions DVT px ;SCD , no heparin or AC for uncotrolled BP, plus thrombocytopenia , risks more than benefits at this point GI px carafate prgnsis is guarded given his comorbiditeis and severity of his illness
[2017-07-02 11:55] LABS: Glucose,Whole Blood 93 mg/dL (75-99)
[2017-07-02] MEDS ORDERED: FOLIC ACID-VIT B COMPLEX-VIT C 1 CAP PO SCH (12:00)
[2017-07-02] MEDS ORDERED: B COMPLEX-VIT C-VIT E-ZINC 1 EACH TAB PO SCH (12:00)
[2017-07-02 12:51] LABS: Glucose,Whole Blood 73 mg/dL (75-99)
[2017-07-02 13:12] LABS: Glucose,Whole Blood 78 mg/dL (75-99)
[2017-07-02 13:39] VITALS: BMI 20.8
[2017-07-02 14:01] LABS: Glucose,Whole Blood 81 mg/dL (75-99)
[2017-07-02 15:24] LABS: Glucose,Whole Blood 106 mg/dL (75-99)
[2017-07-02 15:24] LABS: Glucose,Whole Blood 69 mg/dL (75-99)
[2017-07-02] MEDS ORDERED: ALPRAZolam 0.25 MG TAB PO PRN (16:03)
[2017-07-02] MEDS ORDERED: LORazepam 2 MG/ML INJ IV PRN (16:04)
--- NOTE | 2017-07-02 16:10 | PN ---
PROGRESS NOTE Patient is seen for followup for end-stage renal disease. He was admitted to the hospital yesterday with significant shortness of breath and abdominal pain. Patient was dialyzed yesterday, with about 4 liters of ultrafiltration. He is much improved today. He is off the Cleviprex drip which was started for uncontrolled hypertension. His abdominal pain has improved as well. On examination, blood pressure is 134/68, heart rate 68 per minute. He is afebrile. EXAMINATION OF THE HEART: S1, S2. EXAMINATION OF LUNGS: Bilateral breath sounds are heard. ABDOMEN: Soft, non-tender. Examination of lower extremities shows no evidence of edema. SOIL CHECKER exam is grossly intact. Labs show sodium of 143, potassium 4.2, BUN 46, serum creatinine 5.38, hemoglobin 12.3 g/dL. ASSESSMENT: 1. End-stage renal disease, on hemodialysis on Saturday, Saturday, Saturday schedule. Patient will be dialyzed for a short treatment today and then will have his regular treatment again tomorrow. 2. Fluid overload, currently improved. 3. Hypertensive urgency, currently off of Cleviprex drip and improved post dialysis. 4. Abdominal pain, most likely related to underlying gastroparesis. Patient had a recent gastric pacemaker placed at [facility]. 5. Hyperkalemia, improved with dialysis. 6. Low-grade fever, maintained on antibiotics for the possibility of pneumonia. 7. Elevated liver enzymes, currently decreasing. Patient is not on any statins. PLAN: Hemodialysis today as well as in a.m. Continue antibiotics. Continue to encourage increased oral intake. Patient is advised to follow up as outpatient at [facility] regarding his gastric pacemaker. MMODL / IJN: [id number] /
[2017-07-02 16:17] VITALS: TEMP 98.3
[2017-07-02] MEDS: LORazepam 1 MG TAB PO PRN (16:30)
--- NOTE | 2017-07-02 16:39 | P.CN ---
Psychiatric Consult - . Consult date: 07/02/17 Consult:: 07/02/17 16:27 Identification: Patient is a 41-year-old male who presented to the emergency room due to complaints of abdominal pain as well as nausea and vomiting in the emergency room his blood pressure was elevated as well as his temper. Reason for Consult: Suicidal ideation History of Present Illness: Patient's chart was reviewed patient was seen and interviewed in his room no family members were present. Patient states that he made the statement "I can't live like this" yesterday due to nausea or vomiting and abdominal pain. States that he comes to the hospital at least once a month for similar complaints and states he is tired of coming into the hospital and dealing with this. Patient states that he has gastroparesis secondary to his diabetes and this began at the same time that he began dialysis for his end- stage renal disease also brought on by his diabetes 10 years ago. Patient states that he was on his way to dialysis on Saturday when the nausea and vomiting and abdominal pain were so bad that he was brought to the emergency room and did not go to dialysis. Patient states that he does not miss dialysis for any reason other than what he has stated and states that this occurs at least once a month. States that he has tried multiple things at home with his diet but states that nothing makes any difference in his symptoms and is well he has a pacemaker for his GI tract. Patient states that he is compliant with his medications at home and states that he has no desire to and has no history of making any suicide attempts in the past. Patient states that he was not feeling suicidal yesterday and states that he is not currently feeling suicidal. Patient states that he wants to live and has many reasons to do so. Patient states he was seen once in outpatient consultation for symptoms of depression, he states that he is unsure of what he was reporting at that time but it was at the time that he was diagnosed with the end-stage renal disease as well as the gastroparesis and was beginning dialysis. Patient states he went one time and did not return because he did not find it helpful and he has never been prescribed any medications for depression. Patient does not endorse a history of manic episodes, psychotic symptoms or anxiety symptoms. Patient states that he is currently living with his mother and they recently purchased a home together. He states that his mother worked as a nurse and that the 2 of them are very close and he referred to her as his best friend. Past Psychiatric History: Has no history of inpatient psychiatric admissions, has been seen once in an outpatient setting has never been placed on any psychotropic medication Past Medical/Surgical History: Patient states he was diagnosed with diabetes when he was 19 years of age, has end-stage renal disease on hemodialysis, hypertension, thyroid disorder and has a pacemaker placed to improve his gastroparesis. Family History: Patient reports no psychiatric history in the family, no completed suicides and states that there is alcohol use disorder in many relatives on his maternal side Social History: Patient was born and raised in [place], his mother is alive he has never had any contact with his father. His parents were never . He has a half-sister from his mother. Patient completed high school and attended some college and did 2 years in trade school. 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 He states that he has not worked since 2007 and is on Social Security disability. Patient has never and has no children. He currently lives with his mother in a home that they bought together. He reports no abuse history. Substance Use History: Patient states that he has no alcohol use history and does not currently use states that he used marijuana in high school and denies any other drug use including IV drug use. Patient does not use tobacco products. Legal History: He denies any legal history Mental status: Appearance/Attitude: Patient is lying in a hospital bed in no acute distress, makes good eye contact and was cooperative Behavior: Patient did not exhibit any psychomotor retardation or agitation. Speech/Language: Speech was spontaneous of normal volume and rhythm and he was coherent. Thought Process: Patient was goal-directed there was no evidence of loose association or flight of ideas. Thought Content: Patient denied any auditory or visual hallucinations no delusions or paranoid ideation were elicited. Patient stated that yesterday he made the statement that he was tired of living like this referring to his ongoing nausea and vomiting and episodes of abdominal pain related to his gastroparesis. Patient states that he did not want to and was not having any thoughts of hurting himself. Patient states that he has never missed his dialysis due to wanting to . Patient states he is compliant with his medications at home. He states that he is tired of coming to the hospital at least once a month for nausea vomiting and abdominal pain. Patient reports that he has tried to change his diet with little effect on his symptoms. Suicidal/Homicidal Ideation: Patient denies any current suicidal or homicidal ideation Sensorium/Cognition: Patient alert and oriented to person, place, and time and his recent and remote memory are grossly intact. Mood/Affect: Patient's mood was euthymic and his affect was appropriate Insight/Judgment: Patient's insight and judgment are fair Assessment: Patient reports that once a month he has episodes of nausea and vomiting and abdominal pain secondary to his gastroparesis which he states began once he began dialysis for end-stage renal disease caused by his diabetes. Patient states that for the last 10 years this is been an ongoing issue for him, with changes in his diet, pacemaker he has had little relief. Patient states that he has never made any suicide attempts, was not feeling suicidal when he reported that he could not continue to live like this and he was referring to his symptoms of nausea, vomiting and abdominal pain. Patient states that he wants to live, is compliant with his medications and his dialysis regimen of 3 times a week. Patient states that he and his mother live together and that she is of assistance to him as she worked as a nurse in the past. Patient reports no history of inpatient admissions and does not endorse any symptoms of daniel, psychosis or depression. Patient was seen once as an outpatient for counseling at the time that he began dialysis and was having symptoms of gastroparesis. Patient has never been placed on psychotropic medication. Diagnosis: Adjustment disorder Plan: Patient is not suicidal, patient is not endorsing any symptoms of psychosis, daniel, depression or anxiety. Patient is having difficulties coping with medical problems such as gastroparesis and the ensuing nausea and vomiting as well as abdominal pain. Patient reports that he has been compliant with treatment in the past and has not missed his dialysis appointments other than to come to the emergency room for the above symptoms. Patient does not require one-to-one suicide precautions and I will discontinue these. Patient does not require an inpatient psychiatric admission. Patient declines referral for outpatient counseling stating that he is not interested in that. I will sign off the case if there are any further questions or concerns please and hesitate to contact me
[2017-07-02 17:07] LABS: Glucose,Whole Blood 120 mg/dL (75-99)
[2017-07-02 17:22] VITALS: BP 163/85; PULSE 70; RESP 15
--- NOTE | 2017-07-03 10:35 | CDI ---
Last Revision, January 2017 Documentation Clarification Form Date: 07/03/17 From: Terri Sutherland Phone: If you have a question regarding this query, please contact Willie Mari at [phone] between 8am and 5pm. Admit Date: 07/01/2017 12:27:00 PM Patient Name: Joaquim Fowler Visit Number: [id number] Discharge Date: 07/02/17 ATTENTION: The Clinical Documentation Specialists (CDI) and [facility] Coding Staff appreciate your assistance in clarifying documentation. Please respond to the clarification below the line at the bottom and electronically sign. The CDI & [facility] Coding staff will review the response and follow-up if needed. Please note: Queries are made part of the Legal Health Record. If you have any questions, please contact the author of this message via ITS. Dr. Beckwith E Sheet Patient has a past medical history of heart failure. History/Risk Factors: Patient has a history of type I DM, hypertension, CAD and end stage renal disease. Clinical Indicators: Fluid overload. Per Dr. Rush's consult note the chest x- ray shows evidence of CHF. VS/Pulse OX: T. 98.5, P. 94, R. 22, BP 225/107, Pulse ox. 92 BNP: [id number] Chest X Ray: 07/01: Correlate for pulmonary venous hypertension and interstitial edema. 07/02: Improved aeration of the lungs with mild residual pulmonary vascular congestion likely on the basis of decompensated congestive hear failure. Treatment: PO hydralazine, hemodialysis x 2. In your professional opinion, can you please clarify the acuity and type of CHF if known? Systolic Heart Failure: Acute Chronic Acute on Chronic Diastolic Heart Failure: Acute Chronic Acute on Chronic Systolic & Diastolic Heart Failure: Acute Chronic Acute on Chronic Heart Failure Unable to Determine Other, please specify__ unable to determine MTDD
== END 2017-07-02 20:35 | disposition left against medical advice (07) | DRG 640 ==
LOC: EC 08:43 → 6ICU 12:27
PROVIDERS: ADMIT Internal Medicine; ATTEND Internal Medicine
PROC: 5A1D70Z Performance of Urinary Filtration, Intermittent, Less than 6 Hours Per Day (ICD-10-PCS; principal; 2017-07-01)
DX: E87.79 Other fluid overload (principal); J96.01 Acute respiratory failure with hypoxia; N18.6 End stage renal disease; I13.2 Hypertensive heart and chronic kidney disease with heart failure and with stage 5 chronic kidney disease, or end stage renal disease; I50.9 Heart failure, unspecified; D63.1 Anemia in chronic kidney disease; E03.9 Hypothyroidism, unspecified; E10.22 Type 1 diabetes mellitus with diabetic chronic kidney disease; E10.319 Type 1 diabetes mellitus with unspecified diabetic retinopathy without macular edema; E10.43 Type 1 diabetes mellitus with diabetic autonomic (poly)neuropathy; E10.649 Type 1 diabetes mellitus with hypoglycemia without coma; E87.5 Hyperkalemia; G40.909 Epilepsy, unspecified, not intractable, without status epilepticus; G43.A0 Cyclical vomiting, in migraine, not intractable; G89.29 Other chronic pain; I16.0 Hypertensive urgency; K21.9 Gastro-esophageal reflux disease without esophagitis; K31.84 Gastroparesis; F32.9 Major depressive disorder, single episode, unspecified; F41.9 Anxiety disorder, unspecified; K44.9 Diaphragmatic hernia without obstruction or gangrene; R01.1 Cardiac murmur, unspecified; M54.9 Dorsalgia, unspecified; R74.8 Abnormal levels of other serum enzymes; E10.42 Type 1 diabetes mellitus with diabetic polyneuropathy; D69.6 Thrombocytopenia, unspecified; Z99.2 Dependence on renal dialysis; Z96.89 Presence of other specified functional implants; Z87.891 Personal history of nicotine dependence; Z79.4 Long term (current) use of insulin; Z79.899 Other long term (current) drug therapy; Z88.5 Allergy status to narcotic agent; Z88.8 Allergy status to other drugs, medicaments and biological substances; Z82.0 Family history of epilepsy and other diseases of the nervous system; Z82.5 Family history of asthma and other chronic lower respiratory diseases; Z83.3 Family history of diabetes mellitus
CPT/HCPCS: 36415; 71045; 74018; 74177; 80053; 82009; 82150; 82550; 82553; 83036; 83690; 83735; 83880; 84100; 84484; 85025; 87040; 90935; 93005; 94640; 96361; 96374; 96375; 96376; 99285

== ENCOUNTER 2017-07-12 05:03 | Emergency (ER) | payer MEDICARE, OTHER ==
[2017-07-12 05:09] VITALS: TEMP 98.8
[2017-07-12] MEDS ORDERED: HYDROmorphone 1 MG/ML 1 ML SYRINGE IVP STA (05:18)
[2017-07-12] MEDS ORDERED: ONDANSETRON 4 MG/2 ML VIAL IVP STA (05:18)
--- NOTE | 2017-07-12 05:21 | ED ---
Abdominal Pain HPI - General Chief Complaint: Abdominal Pain Stated Complaint: Abdominal Pain Time Seen by Provider: 07/12/17 05:11 Source: patient Mode of arrival: ambulatory Limitations: no limitations - History of Present Illness Initial Comments: This is a 41-year-old male with a history of end-stage renal disease, diabetes, gastroparesis or presents emergency department for epigastric abdominal pain, nausea, vomiting. The symptoms started yesterday and gradually worsening. Difficult keep down his medications. He spoke to go for dialysis this morning however they will not do dialysis on him if he is still something brought him to the emergency department. The patient states that this is typical for his gastroparesis pain. He did have a previous nerve stimulator implanted approximately one month ago however it has not seemed to improve much of his symptoms. Patient denies any fevers or chills. No diarrhea. No other acute complaints at this time. - Related Data Home Medications Medication Instructions Recorded Confirmed LORazepam [Ativan] 1 mg PO DAILY PRN 06/06/14 07/01/17 amLODIPine BESYLATE [Amlodipine 10 mg PO QAM 06/24/15 07/01/17 Besylate] Cyclobenzaprine [Flexeril] 10 mg PO TID PRN 02/20/16 07/01/17 Omeprazole [PriLOSEC] 20 mg PO DAILY 02/20/16 07/01/17 HYDROmorphone [Dilaudid] 2 mg PO DAILY PRN 03/28/16 07/01/17 hydrALAZINE HCL [Apresoline] 100 mg PO TID 03/28/16 07/01/17 hydrOXYzine HCL 10 mg PO Q8H PRN 11/15/16 07/01/17 chlorproMAZINE [Thorazine] 25 mg PO BID 12/28/16 07/01/17 Cinacalcet HCl [Sensipar] 60 mg PO DAILY 01/31/17 07/01/17 Sevelamer [Renvela] 800 mg PO AC-TID 01/31/17 07/01/17 Gabapentin [Neurontin] 200 mg PO MOWEFR 04/12/17 07/01/17 Carvedilol [Coreg] 25 mg PO BID 05/24/17 07/01/17 Docusate [Colace] 100 mg PO DAILY 05/24/17 07/01/17 INSULIN LISPRO (humaLOG) [humaLOG] See Protocol SQ TID PRN 05/24/17 07/01/17 Ondansetron Odt [Zofran ODT] 4 mg PO DAILY PRN 05/24/17 07/01/17 Neela-Cherlele 1 tab PO DAILY 05/24/17 07/01/17 Sodium Bicarbonate Tab 650 mg PO TID 05/24/17 07/01/17 Vitamin B Complex 2 cap PO DAILY 05/24/17 07/01/17 Previous Rx's Medication Instructions Recorded Insulin Glargine [Lantus] 12 unit SQ HS #0 12/05/16 Sucralfate [Carafate] 1 gm PO BID #100 ml 04/13/17 Allergies Allergy/AdvReac Type Severity Reaction Status Date / Time codeine Allergy Rash/Hives Verified 07/12/17 05:09 metoclopramide HCl AdvReac Muscle Verified 07/12/17 05:09 [From Reglan] Spasms morphine AdvReac Increases Verified 07/12/17 05:09 Pain Review of Systems ROS Statement: Those systems with pertinent positive or pertinent negative responses have been documented in the HPI. ROS Other: All systems not noted in ROS Statement are negative. Past Medical History Past Medical History: Chest Pain / Angina, Heart Failure, Diabetes Mellitus, Dialysis, Eye Disorder, GERD/Reflux, Hypertension, Renal Disease, Seizure Disorder, Thyroid Disorder Additional Past Medical History / Comment(s): IDDM type I/brittle, chronic abdominal pain, gastroparesis, cyclic vomiting and had gastric pacemaker inserted 05/17/17 at [facility], chronic renal failure stage IV, hemodialysis M/W/FR-4 hr, past peritoneal dialysis with peritonitis, pancreatitis, heart murmur, diabetic retinopathy bilaterally, retinal detachment with surgery, bilateral hands, legs and feet diabetic neuropathy, hypothyroid, hiatal hernia, sinusitis , bronchitis, chronic back pain, anemia, last seizure in 2015. History of Any Multi-Drug Resistant Organisms: None Reported Past Surgical History: Cholecystectomy, Heart Catheterization, Hernia Repair Additional Past Surgical History / Comment(s): 05/17/17 Gastric pacemaker inserted at [facility], bilateral retinal reattachment sx, hemodialysis catheter in Feb 2013- lt arm fistual, L inguinal hernia, 2009 cardiac cath. Past Anesthesia/Blood Transfusion Reactions: No Reported Reaction Additional Past Anesthesia/Blood Transfusion Reaction / Comment(s): Uvula edema with gallbladder surgery that occluded airway and caused respiratory arrest. Past Psychological History: Anxiety, Depression Smoking Status: Former smoker Past Alcohol Use History: None Reported Past Drug Use History: None Reported - Past Family History Father History Unknown: Yes Mother History Unknown: Yes Family Medical History: COPD Additional Family Medical History / Comment(s): Mother has never smoked. Mother' s brother had diabetes and multiple sclerosis. Brother(s) Family Medical History: Diabetes Mellitus Additional Family Medical History / Comment(s): multiple sclerosis General Exam - General Exam Comments Initial Comments: Constitutional: Awake alert appears uncomfortable Head: Normocephalic atraumatic Eyes: no conjunctival injection No scleral icterus EOMI Neck: No JVD Supple Heart: Regular rate rhythm normal S1-S2 no murmurs Lungs: Clear to auscultation bilaterally No wheezing No rales Abdomen: Soft nondistended epigastric tenderness without rebound or guarding Extremities: Non edematous DP pulses intact Radial pulses intact Neuro: A&Ox3 No focal neurologic deficits Psych: Appropriate mood and affect Limitations: no limitations Course Vital Signs 07/12/17 07/12/17 05:05 06:53 Temperature 98.8 F Pulse Rate 87 81 Respiratory 18 16 Rate Blood Pressure 183/92 200/104 O2 Sat by Pulse 95 96 Oximetry - Reevaluation(s) Reevaluation #1: 07/12/17 05:31 EKG showing normal sinus rhythm with a rate of 75. There is no abnormal ST segment changes. There is a T-wave inversion in lead 1 which is unchanged from previous. T-wave seem to be less peaked from previous EKG. QTC is 477 other intervals are normal. No ectopy. Medical Decision Making - Medical Decision Making This is a 41-year-old male came in for epigastric pain and nausea and vomiting. Patient was improved after IM Zofran. He was able to tolerate his home dose of Dilaudid orally. He requested to go home. Labwork was reviewed and not unchanged from baseline. The patient is going to try to set up for dialysis later today. All questions answered. - Lab Data Result diagrams: 07/12/17 06:05 07/12/17 06:05 Lab Results 07/12/17 07/12/17 07/12/17 Range/Units 06:00 06:05 06:05 WBC 8.2 (3.8-10.6) k/uL RBC 3.32 L (4.30-5.90) m/uL Hgb 9.8 L D (13.0-17.5) gm/dL Hct 30.4 L (39.0-53.0) % MCV 91.4 (80.0-100.0) fL MCH 29.6 (25.0-35.0) pg MCHC 32.3 (31.0-37.0) g/dL RDW 15.5 (11.5-15.5) % Plt Count 172 (150-450) k/uL Neutrophils % 74 % Lymphocytes % 14 % Monocytes % 4 % Eosinophils % 4 % Basophils % 1 % Neutrophils # 6.1 (1.3-7.7) k/uL Lymphocytes # 1.2 (1.0-4.8) k/uL Monocytes # 0.3 (0-1.0) k/uL Eosinophils # 0.4 (0-0.7) k/uL Basophils # 0.1 (0-0.2) k/uL Sodium 141 (137-145) mmol/L Potassium 4.4 (3.5-5.1) mmol/L Chloride 98 (98-107) mmol/L Carbon Dioxide 27 (22-30) mmol/L Anion Gap 16 mmol/L BUN 49 H (9-20) mg/dL Creatinine 7.03 H* (0.66-1.25) mg/dL Est GFR (CKD-EPI)AfAm 10 (>60 ml/min/1.73 sqM) Est GFR (CKD-EPI)NonAf 9 (>60 ml/min/1.73 sqM) Glucose 192 H (74-99) mg/dL POC Glucose (mg/dL) 222 H (75-99) mg/dL POC Glu Material Mixer ID Yashira Woodyina Calcium 9.0 (8.4-10.2) mg/dL Phosphorus 4.6 H (2.5-4.5) mg/dL Magnesium 2.1 (1.6-2.3) mg/dL Total Bilirubin 0.8 (0.2-1.3) mg/dL AST 31 (17-59) U/L ALT 52 (21-72) U/L Alkaline Phosphatase 159 H (38-126) U/L Total Protein 7.0 (6.3-8.2) g/dL Albumin 4.1 (3.5-5.0) g/dL Lipase 105 (23-300) U/L Disposition Clinical Impression: ESRD (end stage renal disease), Gastroparesis Disposition: HOME SELF-CARE Condition: Stable Instructions: Gastroparesis (ED) Additional Instructions: Get appointment for dialysis today. Is patient prescribed a controlled substance at d/c from ED?: No Referrals: Kala Onofre MD [Primary Care Provider] - 1-2 days
[2017-07-12] MEDS ORDERED: HYDROmorphone 2 MG TAB PO STA (05:27)
[2017-07-12] MEDS ORDERED: INSULIN ASPART 100 UNIT/ML 1 ML 10 ML VIAL SQ ONE (06:05)
[2017-07-12] MEDS ORDERED: ONDANSETRON 4 MG/2 ML VIAL IM STA (06:10)
[2017-07-12 06:13] LABS: Glucose,Whole Blood 222 mg/dL (75-99)
[2017-07-12 06:25] LABS: Basophils # (A) 0.1 k/uL (0-0.2); Basophils % (A) 1 %; Eosinophils # (A) 0.4 k/uL (0-0.7); Eosinophils % (A) 4 %; HCT 30.4 % (39.0-53.0); Lymphocytes # (A) 1.2 k/uL (1.0-4.8); Lymphocytes % (A) 14 %; MCH 29.6 pg (25.0-35.0); MCHC 32.3 g/dL (31.0-37.0); MCV 91.4 fL (80.0-100.0); Monocytes # (A) 0.3 k/uL (0-1.0); Monocytes % (A) 4 %; Neutrophils # (A) 6.1 k/uL (1.3-7.7); Neutrophils % (A) 74 %; Platelet Count 172 k/uL (150-450); RBC 3.32 m/uL (4.30-5.90); RDW 15.5 % (11.5-15.5); WBC 8.2 k/uL (3.8-10.6)
[2017-07-12 06:30] LABS: HGB 9.8 gm/dL (13.0-17.5)
[2017-07-12 06:33] LABS: Albumin 4.1 g/dL (3.5-5.0); Magnesium 2.1 mg/dL (1.6-2.3); Phosphorus 4.6 mg/dL (2.5-4.5); Potassium 4.4 mmol/L (3.5-5.1); Total Bilirubin 0.8 mg/dL (0.2-1.3)
[2017-07-12 06:56] VITALS: BP 200/104; PULSE 81; RESP 16
== END 2017-07-12 07:00 | disposition home or self-care (01) ==
LOC: EC 05:03
DX: K31.84 Gastroparesis (principal); E11.43 Type 2 diabetes mellitus with diabetic autonomic (poly)neuropathy; N18.6 End stage renal disease; E11.22 Type 2 diabetes mellitus with diabetic chronic kidney disease; I13.2 Hypertensive heart and chronic kidney disease with heart failure and with stage 5 chronic kidney disease, or end stage renal disease; I50.9 Heart failure, unspecified; E11.319 Type 2 diabetes mellitus with unspecified diabetic retinopathy without macular edema; E11.42 Type 2 diabetes mellitus with diabetic polyneuropathy; K21.9 Gastro-esophageal reflux disease without esophagitis; F32.9 Major depressive disorder, single episode, unspecified; F41.9 Anxiety disorder, unspecified; Z87.891 Personal history of nicotine dependence; Z79.4 Long term (current) use of insulin; Z79.899 Other long term (current) drug therapy; Z88.5 Allergy status to narcotic agent; Z88.8 Allergy status to other drugs, medicaments and biological substances; Z53.8 Procedure and treatment not carried out for other reasons; Z99.2 Dependence on renal dialysis; Z90.49 Acquired absence of other specified parts of digestive tract; Z98.890 Other specified postprocedural states
CPT/HCPCS: 36415; 93005; 80053; 83690; 83735; 84100; 85025; 99284; 96372; J2405

== ENCOUNTER 2017-07-31 08:54 | Emergency (ER) | payer MEDICARE, OTHER ==
[2017-07-31] MEDS ORDERED: SODIUM CHLORIDE 0.9% 1,000 ML IV STA ×2 (09:47)
[2017-07-31] MEDS ORDERED: ONDANSETRON 4 MG/2 ML VIAL IVP STA (09:47)
[2017-07-31] MEDS ORDERED: LABETALOL 5 MG/ML VIAL MDV IVP STA (09:48)
[2017-07-31] MEDS ORDERED: diphenhydrAMINE 50 MG/ML 1 ML VIAL IVP STA (09:48)
--- NOTE | 2017-07-31 09:50 | ED ---
Nausea/Vomiting/Diarrhea HPI - General Chief complaint: Nausea/Vomiting/Diarrhea Stated complaint: Nausea/Vomiting Time Seen by Provider: 07/31/17 09:34 Source: patient, family, RN notes reviewed, old records reviewed Mode of arrival: ambulatory Limitations: no limitations - History of Present Illness Initial comments: Patient is a 41-year-old male with a history of gastroparesis, end-stage renal disease. He reports that he missed his dialysis today due to acute nausea and vomiting. Patient states that it started this morning. He threw up his blood pressure medications. Patient reports that he has a headache at this time and has his abdominal pain consistent with his gastroparesis. He recently had a gastric stimulator placed. That seems to help with his nausea. Patient reports that he has had no fever or chills. Did have a bowel movement yesterday. - Related Data Home Medications Medication Instructions Recorded Confirmed LORazepam [Ativan] 1 mg PO DAILY PRN 06/06/14 07/31/17 amLODIPine BESYLATE [Amlodipine 10 mg PO QAM 06/24/15 07/31/17 Besylate] Cyclobenzaprine [Flexeril] 10 mg PO TID PRN 02/20/16 07/31/17 Omeprazole [PriLOSEC] 20 mg PO DAILY 02/20/16 07/31/17 HYDROmorphone [Dilaudid] 2 mg PO DAILY PRN 03/28/16 07/31/17 hydrALAZINE HCL [Apresoline] 100 mg PO TID 03/28/16 07/31/17 hydrOXYzine HCL 10 mg PO Q8H PRN 11/15/16 07/31/17 chlorproMAZINE [Thorazine] 25 mg PO BID 12/28/16 07/31/17 Cinacalcet HCl [Sensipar] 60 mg PO DAILY 01/31/17 07/31/17 Sevelamer [Renvela] 800 mg PO AC-TID 01/31/17 07/31/17 Gabapentin [Neurontin] 200 mg PO MOWEFR 04/12/17 07/31/17 Carvedilol [Coreg] 25 mg PO BID 05/24/17 07/31/17 Docusate [Colace] 100 mg PO DAILY 05/24/17 07/31/17 INSULIN LISPRO (humaLOG) [humaLOG] See Protocol SQ TID PRN 05/24/17 07/31/17 Ondansetron Odt [Zofran ODT] 4 mg PO DAILY PRN 05/24/17 07/31/17 Neela-Cherelle 1 tab PO DAILY 05/24/17 07/31/17 Sodium Bicarbonate Tab 650 mg PO TID 05/24/17 07/31/17 Vitamin B Complex 2 cap PO DAILY 05/24/17 07/31/17 Previous Rx's Medication Instructions Recorded Insulin Glargine [Lantus] 12 unit SQ HS #0 12/05/16 Sucralfate [Carafate] 1 gm PO BID #100 ml 04/13/17 Allergies Allergy/AdvReac Type Severity Reaction Status Date / Time codeine Allergy Rash/Hives Verified 07/31/17 09:40 metoclopramide HCl AdvReac Muscle Verified 07/31/17 09:40 [From Reglan] Spasms morphine AdvReac Increases Verified 07/31/17 09:40 Pain Review of Systems ROS Statement: Those systems with pertinent positive or pertinent negative responses have been documented in the HPI. ROS Other: All systems not noted in ROS Statement are negative. Past Medical History Past Medical History: Chest Pain / Angina, Heart Failure, Diabetes Mellitus, Dialysis, Eye Disorder, GERD/Reflux, Hypertension, Renal Disease, Seizure Disorder, Thyroid Disorder Additional Past Medical History / Comment(s): IDDM type I/brittle, chronic abdominal pain, gastroparesis, cyclic vomiting and had gastric pacemaker inserted 05/17/17 at [facility], chronic renal failure stage IV, hemodialysis M/W/FR-4 hr, past peritoneal dialysis with peritonitis, pancreatitis, heart murmur, diabetic retinopathy bilaterally, retinal detachment with surgery, bilateral hands, legs and feet diabetic neuropathy, hypothyroid, hiatal hernia, sinusitis , bronchitis, chronic back pain, anemia, last seizure in 2016. History of Any Multi-Drug Resistant Organisms: None Reported Past Surgical History: Cholecystectomy, Heart Catheterization, Hernia Repair Additional Past Surgical History / Comment(s): 05/17/17 Gastric pacemaker inserted at [facility], bilateral retinal reattachment sx, hemodialysis catheter in Feb 2013- lt arm fistual, L inguinal hernia, 2009 cardiac cath. Past Anesthesia/Blood Transfusion Reactions: No Reported Reaction Additional Past Anesthesia/Blood Transfusion Reaction / Comment(s): Uvula edema with gallbladder surgery that occluded airway and caused respiratory arrest. Past Psychological History: Anxiety, Depression Smoking Status: Former smoker Past Alcohol Use History: None Reported Past Drug Use History: None Reported - Past Family History Father History Unknown: Yes Mother History Unknown: Yes Family Medical History: COPD Additional Family Medical History / Comment(s): Mother has never smoked. Mother' s brother had diabetes and multiple sclerosis. Brother(s) Family Medical History: Diabetes Mellitus Additional Family Medical History / Comment(s): multiple sclerosis General Exam - General Exam Comments Initial Comments: 41-year-old male. Alert and oriented. Patient is writhing around the bed. Limitations: no limitations General appearance: alert, in no apparent distress Head exam: Present: atraumatic, normocephalic, normal inspection Eye exam: Present: normal appearance, PERRL, EOMI. Absent: scleral icterus, conjunctival injection, periorbital swelling ENT exam: Present: normal exam, mucous membranes moist Neck exam: Present: normal inspection. Absent: tenderness, meningismus, lymphadenopathy Respiratory exam: Present: normal lung sounds bilaterally. Absent: respiratory distress, wheezes, rales, rhonchi, stridor Cardiovascular Exam: Present: regular rate, normal rhythm, normal heart sounds. Absent: systolic murmur, diastolic murmur, rubs, gallop, clicks GI/Abdominal exam: Present: soft, normal bowel sounds, other (Soft and patient had no tenderness on palpation. ). Absent: distended, tenderness, guarding, rebound, rigid Extremities exam: Present: normal inspection, full ROM, normal capillary refill. Absent: tenderness, pedal edema, joint swelling, calf tenderness Back exam: Present: normal inspection Neurological exam: Present: alert, oriented X3, CN II-XII intact Psychiatric exam: Present: normal affect, normal mood Course Vital Signs 07/31/17 07/31/17 07/31/17 09:13 11:27 12:05 Temperature 97.9 F 97.4 F L Pulse Rate 84 74 77 Respiratory 18 16 16 Rate Blood Pressure 211/103 191/93 185/87 O2 Sat by Pulse 96 94 L 95 Oximetry Medical Decision Making - Medical Decision Making Patient is a 41 year old male with nausea and vomiting. He did not go to dialysis today due to nausea and vomiting. Given Zofran, and labs obtained.Patient has not vomited in ED. He continued to complain of pain, I discussed patient can have at home PO dilaudid. Patient mother reports she has been giving him them, and they only have one left. He is to follow up with a Pain management clinic. Discussed that patient vomiting is due to withdrawals. Given one dose of pain medication in ED. Discussed his labs show that patient did not complete dialysis, and encouraged them to go later today. REturn parameters discussed. - Lab Data Result diagrams: 07/31/17 10:00 07/31/17 10:00 Lab Results 07/31/17 07/31/17 Range/Units 10:00 10:00 WBC 7.6 (3.8-10.6) k/uL RBC 3.23 L (4.30-5.90) m/uL Hgb 9.6 L (13.0-17.5) gm/dL Hct 30.1 L (39.0-53.0) % MCV 93.1 (80.0-100.0) fL MCH 29.7 (25.0-35.0) pg MCHC 31.9 (31.0-37.0) g/dL RDW 16.8 H (11.5-15.5) % Plt Count 149 L (150-450) k/uL Neutrophils % 76 % Lymphocytes % 11 % Monocytes % 5 % Eosinophils % 5 % Basophils % 1 % Neutrophils # 5.8 (1.3-7.7) k/uL Lymphocytes # 0.8 L (1.0-4.8) k/uL Monocytes # 0.4 (0-1.0) k/uL Eosinophils # 0.4 (0-0.7) k/uL Basophils # 0.1 (0-0.2) k/uL Anisocytosis Slight Sodium 143 (137-145) mmol/L Potassium 5.1 (3.5-5.1) mmol/L Chloride 100 (98-107) mmol/L Carbon Dioxide 23 (22-30) mmol/L Anion Gap 20 mmol/L BUN 80 H* (9-20) mg/dL Creatinine 8.12 H* (0.66-1.25) mg/dL Est GFR (CKD-EPI)AfAm 9 (>60 ml/min/1.73 sqM) Est GFR (CKD-EPI)NonAf 8 (>60 ml/min/1.73 sqM) Glucose 149 H (74-99) mg/dL Calcium 9.2 (8.4-10.2) mg/dL Total Bilirubin 1.1 (0.2-1.3) mg/dL AST 125 H (17-59) U/L ALT 156 H (21-72) U/L Alkaline Phosphatase 188 H (38-126) U/L Total Protein 7.3 (6.3-8.2) g/dL Albumin 4.5 (3.5-5.0) g/dL Amylase 101 (30-110) U/L Lipase 195 (23-300) U/L - Radiology Data Radiology results: report reviewed Moderate amount of colonic stool run out instructed by gas pattern. Disposition Clinical Impression: Nausea & vomiting, Hypertension, Dialysis patient Disposition: HOME SELF-CARE Condition: Good Instructions: Acute Nausea and Vomiting (ED) Additional Instructions: Patient advised to follow-up with dialysis and primary care provider. Return if any worsening signs or symptoms occur. Is patient prescribed a controlled substance at d/c from ED?: No When asked, does pt state using other controlled substances?: No If prescribed controlled substance>3 days was MAPS reviewed?: No If opioid is for acute pain is fill amount 7 days or less?: No If Rx opioid, was Start Talking consent form obtained?: No Referrals: Kala Onofre MD [Primary Care Provider] - 1-2 days Time of Disposition: 11:57
[2017-07-31 10:26] LABS: Anisocytosis Slight; Basophils # (A) 0.1 k/uL (0-0.2); Basophils % (A) 1 %; Eosinophils # (A) 0.4 k/uL (0-0.7); Eosinophils % (A) 5 %; HCT 30.1 % (39.0-53.0); HGB 9.6 gm/dL (13.0-17.5); Lymphocytes # (A) 0.8 k/uL (1.0-4.8); Lymphocytes % (A) 11 %; MCH 29.7 pg (25.0-35.0); MCHC 31.9 g/dL (31.0-37.0); MCV 93.1 fL (80.0-100.0); Mean Platelet Volume 8.5; Monocytes # (A) 0.4 k/uL (0-1.0); Monocytes % (A) 5 %; Neutrophils # (A) 5.8 k/uL (1.3-7.7); Neutrophils % (A) 76 %; Platelet Count 149 k/uL (150-450); RBC 3.23 m/uL (4.30-5.90); RDW 16.8 % (11.5-15.5); WBC 7.6 k/uL (3.8-10.6)
[2017-07-31 10:41] LABS: Albumin 4.5 g/dL (3.5-5.0); Calcium 9.2 mg/dL (8.4-10.2); Potassium 5.1 mmol/L (3.5-5.1); Total Bilirubin 1.1 mg/dL (0.2-1.3); Total Protein 7.3 g/dL (6.3-8.2)
--- NOTE | 2017-07-31 10:59 | XR ---
EXAMINATION TYPE: XR KUB DATE OF EXAM: 07/31/2017 10:42 AM CLINICAL HISTORY: Abdominal pain with history of gastroparesis TECHNIQUE: Single upright image of the abdomen is obtained. COMPARISON: 07/02/2017. FINDINGS: There are extensive vascular calcifications within the abdomen. Nerve stimulator is inciden tally noted. Surgical clips are seen within the right mid abdomen to the renal hilum and right lower quadrant. There is a moderate amount retained colonic stool without colonic or small bowel dilatation . No pneumoperitoneum. Multiple phleboliths within the pelvis. No differential air-fluid levels. Bila teral CAM deformities of the femoral head neck junctions. This predisposes this patient to internal i mpingement. IMPRESSION: Moderate amount retained colonic stool in an overall nonobstructive bowel gas pattern. Ex tensive atherosclerosis throughout.
[2017-07-31] MEDS ORDERED: MORPHINE SULFATE 2 MG/ML SYRINGE IVP STA (11:20)
[2017-07-31 11:28] VITALS: RESP 16
[2017-07-31 12:06] VITALS: BP 185/87; PULSE 77; TEMP 97.4
== END 2017-07-31 12:10 | disposition home or self-care (01) ==
LOC: EC 08:54
DX: R11.2 Nausea with vomiting, unspecified (principal); I13.0 Hypertensive heart and chronic kidney disease with heart failure and stage 1 through stage 4 chronic kidney disease, or unspecified chronic kidney disease; I50.9 Heart failure, unspecified; N18.4 Chronic kidney disease, stage 4 (severe); E11.22 Type 2 diabetes mellitus with diabetic chronic kidney disease; E11.43 Type 2 diabetes mellitus with diabetic autonomic (poly)neuropathy; E11.40 Type 2 diabetes mellitus with diabetic neuropathy, unspecified; E11.319 Type 2 diabetes mellitus with unspecified diabetic retinopathy without macular edema; K31.84 Gastroparesis; K21.9 Gastro-esophageal reflux disease without esophagitis; F32.9 Major depressive disorder, single episode, unspecified; F41.9 Anxiety disorder, unspecified; Z90.49 Acquired absence of other specified parts of digestive tract; Z95.5 Presence of coronary angioplasty implant and graft; Z99.2 Dependence on renal dialysis; Z88.5 Allergy status to narcotic agent; Z88.8 Allergy status to other drugs, medicaments and biological substances; Z79.02 Long term (current) use of antithrombotics/antiplatelets; Z79.4 Long term (current) use of insulin; Z79.899 Other long term (current) drug therapy; Z87.891 Personal history of nicotine dependence
CPT/HCPCS: 99284; 96374; 96375 ×3; 96361 ×2; 36415; 80053; 82150; 83690; 85025; 74018; J1200; J2405; J2270

== ENCOUNTER 2017-08-08 16:49 | Emergency (ER) | payer MEDICARE, OTHER ==
[2017-08-08] MEDS ORDERED: SODIUM CHLORIDE 0.9% 1,000 ML IV STA (17:29)
[2017-08-08] MEDS ORDERED: ONDANSETRON 4 MG/2 ML VIAL IVP STA (17:29)
[2017-08-08] MEDS ORDERED: HYDROmorphone 0.5 MG/0.5 ML SYRINGE IVP STA (17:35)
--- NOTE | 2017-08-08 17:38 | ED ---
Abdominal Pain HPI - General Chief Complaint: Abdominal Pain Stated Complaint: abdominal pain Time Seen by Provider: 08/08/17 17:06 Source: patient Mode of arrival: EMS Limitations: no limitations - History of Present Illness Initial Comments: 41-year-old male patient with past medical history significant for diabetes mellitus, renal failure with hemodialysis Saturday, Saturday, Saturday schedule, gastroparesis, and chronic abdominal pain presents the emergency department today for evaluation of abdominal pain. Patient states this started approximately 5:30 this morning. Patient states the pain has been severe and encompasses his entire abdomen. States he has been vomiting. Patient did recently have a bowel stimulator placed, states it was turned up 2 weeks ago. Patient denies any fevers or chills. He has not had any diarrhea or constipation. States he has been going to dialysis as directed. Patient denies any recent rash, shortness breath, chest pain, diarrhea, constipation, back pain , numbness, tingling, dizziness, weakness, headache, visual changes, or any other complaints. - Related Data Home Medications Medication Instructions Recorded Confirmed LORazepam [Ativan] 0.5 - 1 mg PO DAILY PRN 06/06/14 08/08/17 amLODIPine BESYLATE [Amlodipine 10 mg PO QAM 06/24/15 08/08/17 Besylate] Cyclobenzaprine [Flexeril] 10 mg PO TID PRN 02/20/16 08/08/17 Omeprazole [PriLOSEC] 20 mg PO DAILY 02/20/16 08/08/17 HYDROmorphone [Dilaudid] 2 mg PO Q8H PRN 03/28/16 08/08/17 hydrALAZINE HCL [Apresoline] 100 mg PO TID 03/28/16 08/08/17 hydrOXYzine HCL 10 mg PO Q8H PRN 11/15/16 08/08/17 chlorproMAZINE [Thorazine] 25 mg PO BID 12/28/16 08/08/17 Cinacalcet HCl [Sensipar] 60 mg PO Q48H 01/31/17 08/08/17 Sevelamer [Renvela] 800 mg PO AC-TID 01/31/17 08/08/17 Gabapentin [Neurontin] 200 mg PO MOWEFR 04/12/17 08/08/17 Carvedilol [Coreg] 25 mg PO BID 05/24/17 08/08/17 Docusate [Colace] 100 mg PO DAILY 05/24/17 08/08/17 INSULIN LISPRO (humaLOG) [humaLOG] See Protocol SQ AC-TID PRN 05/24/17 08/08/17 Ondansetron Odt [Zofran ODT] 4 mg PO DAILY PRN 05/24/17 08/08/17 Neela-Cherelle 1 tab PO DAILY 05/24/17 08/08/17 Sodium Bicarbonate Tab 650 mg PO TID 05/24/17 08/08/17 Vitamin B Complex 2 cap PO DAILY 05/24/17 08/08/17 Famotidine [Pepcid] 20 mg PO BID 08/08/17 08/08/17 Fluocinonide 0.05% [Lidex 0.05% 15 applic TOPICAL DAILY 08/08/17 08/08/17 cream] Lisinopril [Prinivil] 5 mg PO DAILY 08/08/17 08/08/17 cloNIDine HCL [Catapres] 0.2 mg PO TID 08/08/17 08/08/17 oxyCODONE HCL [Roxicodone] 15 mg PO Q4H PRN 08/08/17 08/08/17 Previous Rx's Medication Instructions Recorded Insulin Glargine [Lantus] 12 unit SQ HS #0 12/05/16 Sucralfate [Carafate] 1 gm PO BID #100 ml 04/13/17 Allergies Allergy/AdvReac Type Severity Reaction Status Date / Time codeine Allergy Rash/Hives Verified 08/08/17 17:07 metoclopramide HCl AdvReac Muscle Verified 08/08/17 17:07 [From Reglan] Spasms morphine AdvReac Increases Verified 08/08/17 17:07 Pain Review of Systems ROS Statement: Those systems with pertinent positive or pertinent negative responses have been documented in the HPI. ROS Other: All systems not noted in ROS Statement are negative. Past Medical History Past Medical History: Chest Pain / Angina, Heart Failure, Diabetes Mellitus, Dialysis, Eye Disorder, GERD/Reflux, Hypertension, Renal Disease, Seizure Disorder, Thyroid Disorder Additional Past Medical History / Comment(s): IDDM type I/brittle, chronic abdominal pain, gastroparesis, cyclic vomiting and had gastric pacemaker inserted 05/17/17 at [facility], chronic renal failure stage IV, hemodialysis M/W/FR-4 hr, past peritoneal dialysis with peritonitis, pancreatitis, heart murmur, diabetic retinopathy bilaterally, retinal detachment with surgery, bilateral hands, legs and feet diabetic neuropathy, hypothyroid, hiatal hernia, sinusitis , bronchitis, chronic back pain, anemia, last seizure in 2016. History of Any Multi-Drug Resistant Organisms: None Reported Past Surgical History: Cholecystectomy, Heart Catheterization, Hernia Repair Additional Past Surgical History / Comment(s): 05/17/17 Gastric pacemaker inserted at [facility], bilateral retinal reattachment sx, hemodialysis catheter in Feb 2013- lt arm fistual, L inguinal hernia, 2009 cardiac cath. Past Anesthesia/Blood Transfusion Reactions: No Reported Reaction Additional Past Anesthesia/Blood Transfusion Reaction / Comment(s): Uvula edema with gallbladder surgery that occluded airway and caused respiratory arrest. Past Psychological History: Anxiety, Depression Smoking Status: Former smoker Past Alcohol Use History: None Reported Past Drug Use History: None Reported - Past Family History Father History Unknown: Yes Mother History Unknown: Yes Family Medical History: COPD Additional Family Medical History / Comment(s): Mother has never smoked. Mother' s brother had diabetes and multiple sclerosis. Brother(s) Family Medical History: Diabetes Mellitus Additional Family Medical History / Comment(s): multiple sclerosis General Exam Limitations: no limitations General appearance: alert, in no apparent distress, other (This is a ill- appearing adult male patient in mild distress related to pain.) Eye exam: Present: normal appearance, PERRL, EOMI. Absent: scleral icterus, conjunctival injection, periorbital swelling ENT exam: Present: normal exam, normal oropharynx, mucous membranes moist Respiratory exam: Present: normal lung sounds bilaterally, other (Tachypnea). Absent: respiratory distress, wheezes, rales, rhonchi, stridor Cardiovascular Exam: Present: regular rate, normal rhythm, normal heart sounds. Absent: systolic murmur, diastolic murmur, rubs, gallop, clicks GI/Abdominal exam: Present: soft, tenderness (Generalized), normal bowel sounds. Absent: distended, guarding, rebound, rigid Extremities exam: Absent: pedal edema Neurological exam: Present: alert, oriented X3, CN II-XII intact Skin exam: Present: warm, dry, intact, pallor. Absent: normal color, rash Course Vital Signs 08/08/17 08/08/17 08/08/17 17:37 18:39 19:16 Temperature 97.9 F 98.1 F Pulse Rate 72 76 74 Respiratory 18 18 20 Rate Blood Pressure 218/107 202/100 196/95 O2 Sat by Pulse 93 L 95 100 Oximetry 08/08/17 08/08/17 08/08/17 20:37 20:58 21:26 Temperature 98.1 F 98.1 F Pulse Rate 80 60 Respiratory 22 16 Rate Blood Pressure 199/99 165/79 O2 Sat by Pulse 96 90 L Oximetry Medical Decision Making - Medical Decision Making 41-year-old male patient presents the emergency department today with complaints of abdominal pain. Patient does have an extensive history of gastroparesis with chronic abdominal pain as well as renal failure and diabetes mellitus. Physical examination did reveal some generalized abdominal tenderness. Labs reviewed and showed chronic changes but overall were unremarkable. Patient did have elevated blood sugar for which she did receive insulin here in the department. Blood pressure was elevated, did improve with administration of blood pressure medication here. Upon reevaluation patient is feeling much better. Feels that he can be discharged home at this time. He is instructed to monitor his blood sugar closely. He is instructed to follow-up with his primary care physician for recheck as soon as possible. Return parameters discussed in detail. He verbalizes understanding and agreed with this plan. - Lab Data Result diagrams: 08/08/17 17:27 08/08/17 17:27 Lab Results 08/08/17 08/08/17 08/08/17 Range/Units 17:27 17:27 19:25 WBC 9.9 (3.8-10.6) k/uL RBC 3.01 L (4.30-5.90) m/uL Hgb 9.2 L (13.0-17.5) gm/dL Hct 28.4 L (39.0-53.0) % MCV 94.1 (80.0-100.0) fL MCH 30.7 (25.0-35.0) pg MCHC 32.6 (31.0-37.0) g/dL RDW 17.0 H (11.5-15.5) % Plt Count 176 (150-450) k/uL Neutrophils % 82 % Lymphocytes % 9 % Monocytes % 4 % Eosinophils % 3 % Basophils % 1 % Neutrophils # 8.0 H (1.3-7.7) k/uL Lymphocytes # 0.9 L (1.0-4.8) k/uL Monocytes # 0.4 (0-1.0) k/uL Eosinophils # 0.3 (0-0.7) k/uL Basophils # 0.1 (0-0.2) k/uL Anisocytosis Slight Sodium 132 L (137-145) mmol/L Potassium 4.4 (3.5-5.1) mmol/L Chloride 89 L (98-107) mmol/L Carbon Dioxide 25 (22-30) mmol/L Anion Gap 18 mmol/L BUN 55 H (9-20) mg/dL Creatinine 5.96 H* (0.66-1.25) mg/dL Est GFR (CKD-EPI)AfAm 13 (>60 ml/min/1.73 sqM) Est GFR (CKD-EPI)NonAf 11 (>60 ml/min/1.73 sqM) Glucose 539 H* (74-99) mg/dL POC Glucose (mg/dL) 474 H (75-99) mg/dL POC Glu [employer] ID Jenn Mccurdy Calcium 8.8 (8.4-10.2) mg/dL Total Bilirubin 0.9 (0.2-1.3) mg/dL AST 58 (17-59) U/L ALT 72 (21-72) U/L Alkaline Phosphatase 240 H (38-126) U/L Total Protein 7.0 (6.3-8.2) g/dL Albumin 4.3 (3.5-5.0) g/dL Amylase 71 (30-110) U/L Lipase 342 H (23-300) U/L Acetone, Qual Negative (Negative) Disposition Clinical Impression: Abdominal pain, Hyperglycemia Disposition: HOME SELF-CARE Condition: Good Instructions: Abdominal Pain (ED), Diabetic Hyperglycemia (ED) Additional Instructions: Take home medications as directed. Follow-up through primary care physician for recheck as soon as possible. Return here immediately for any new, worsening , or concerning symptoms. Is patient prescribed a controlled substance at d/c from ED?: No Referrals: Kala Onofre MD [Primary Care Provider] - 1-2 days Time of Disposition: 21:27
[2017-08-08 17:45] LABS: Anisocytosis Slight; Basophils # (A) 0.1 k/uL (0-0.2); Basophils % (A) 1 %; Eosinophils # (A) 0.3 k/uL (0-0.7); Eosinophils % (A) 3 %; HCT 28.4 % (39.0-53.0); HGB 9.2 gm/dL (13.0-17.5); Lymphocytes # (A) 0.9 k/uL (1.0-4.8); Lymphocytes % (A) 9 %; MCH 30.7 pg (25.0-35.0); MCHC 32.6 g/dL (31.0-37.0); MCV 94.1 fL (80.0-100.0); Monocytes # (A) 0.4 k/uL (0-1.0); Monocytes % (A) 4 %; Neutrophils % (A) 82 %; Platelet Count 176 k/uL (150-450); RBC 3.01 m/uL (4.30-5.90); WBC 9.9 k/uL (3.8-10.6)
[2017-08-08 17:56] LABS: ALT 72 U/L (21-72); AST 58 U/L (17-59); Albumin 4.3 g/dL (3.5-5.0); Alkaline Phosphatase 240 U/L (38-126); Amylase 71 U/L (30-110); Anion Gap 18 mmol/L; Blood Urea Nitrogen 55 mg/dL (9-20); Calcium 8.8 mg/dL (8.4-10.2); Carbon Dioxide 25 mmol/L (22-30); Chloride 89 mmol/L (98-107); Lipase 342 U/L (23-300); Potassium 4.4 mmol/L (3.5-5.1); Sodium 132 mmol/L (137-145); Total Bilirubin 0.9 mg/dL (0.2-1.3)
[2017-08-08 17:58] LABS: Glucose 539 mg/dL (74-99)
[2017-08-08] MEDS ORDERED: INSULIN ASPART 100 UNIT/ML 1 ML 10 ML VIAL SQ ONE (18:21)
[2017-08-08] MEDS ORDERED: cloNIDine HCL 0.2 MG TAB PO STA (18:21)
[2017-08-08 19:18] VITALS: TEMP 98.1
[2017-08-08 19:27] LABS: Glucose,Whole Blood 474 mg/dL (75-99)
[2017-08-08] MEDS ORDERED: INSULIN REGULAR 100 UNIT/ML VIAL IV ONE (19:36)
[2017-08-08] MEDS ORDERED: LORazepam 2 MG/ML INJ IV STA (19:37)
[2017-08-08] MEDS ORDERED: LABETALOL 5 MG/ML VIAL MDV IVP STA (20:42)
[2017-08-08] MEDS ORDERED: diphenhydrAMINE 50 MG/ML 1 ML VIAL IVP STA (20:42)
[2017-08-08 21:27] VITALS: BP 165/79; PULSE 60; RESP 16
== END 2017-08-08 21:49 | disposition home or self-care (01) ==
LOC: EC 16:49
DX: E10.65 Type 1 diabetes mellitus with hyperglycemia (principal); I13.0 Hypertensive heart and chronic kidney disease with heart failure and stage 1 through stage 4 chronic kidney disease, or unspecified chronic kidney disease; I50.9 Heart failure, unspecified; E10.22 Type 1 diabetes mellitus with diabetic chronic kidney disease; N18.4 Chronic kidney disease, stage 4 (severe); K21.9 Gastro-esophageal reflux disease without esophagitis; E07.9 Disorder of thyroid, unspecified; G40.909 Epilepsy, unspecified, not intractable, without status epilepticus; F41.9 Anxiety disorder, unspecified; E10.319 Type 1 diabetes mellitus with unspecified diabetic retinopathy without macular edema; E10.40 Type 1 diabetes mellitus with diabetic neuropathy, unspecified; Z90.49 Acquired absence of other specified parts of digestive tract; Z99.2 Dependence on renal dialysis; Z95.818 Presence of other cardiac implants and grafts; Z97.8 Presence of other specified devices; Z79.02 Long term (current) use of antithrombotics/antiplatelets; Z79.52 Long term (current) use of systemic steroids; Z79.899 Other long term (current) drug therapy; Z88.5 Allergy status to narcotic agent; Z88.8 Allergy status to other drugs, medicaments and biological substances; Z87.19 Personal history of other diseases of the digestive system; Z87.891 Personal history of nicotine dependence; Z53.8 Procedure and treatment not carried out for other reasons
CPT/HCPCS: 36415; 80053; 82150; 82009; 83690; 85025; 99284; 96374; 96375 ×4; J2060; J1200; J2405; J1170

== ENCOUNTER 2017-08-10 13:35 | Inpatient (IN) | payer MEDICARE, OTHER ==
[2017-08-10 14:01] VITALS: TEMP 98.2
[2017-08-10] MEDS ORDERED: SODIUM CHLORIDE 0.9% 500 ML IV STA (14:13)
[2017-08-10] MEDS ORDERED: SODIUM CHLORIDE 0.9% 1,000 ML IV STA (14:13)
[2017-08-10] MEDS ORDERED: ONDANSETRON 4 MG/2 ML VIAL IVP STA (14:13)
[2017-08-10] MEDS ORDERED: HYDROmorphone 0.5 MG/0.5 ML SYRINGE IVP PRN ×2 (14:15→15:55)
[2017-08-10] MEDS ORDERED: HYDROmorphone 0.5 MG/0.5 ML SYRINGE IVP STA (14:15)
--- NOTE | 2017-08-10 14:22 | ED ---
Abdominal Pain HPI - General Chief Complaint: Abdominal Pain Stated Complaint: abd pain N & V Time Seen by Provider: 08/10/17 14:05 Source: patient Mode of arrival: ambulatory Limitations: no limitations - History of Present Illness Initial Comments: 41 years old male complaining about abdominal pain and the chest pain and initially his complaint was abdominal pain he does have a ongoing abdominal pain he sees Dr. Adame at [facility], has been nauseous been throwing up has not been able to keep anything down now blood pressure is quite high is 213/100. He is a dialysis patient last dialysis was on Saturday him in the epigastric area is a 10 over 10 .. Complaining about the chest pain as well it started few hours ago and had comes and goes is off-and-on, he denies any history of ischemic heart disease or previous cardiac interventions - Related Data Home Medications Medication Instructions Recorded Confirmed LORazepam [Ativan] 0.5 - 1 mg PO DAILY PRN 06/06/14 08/10/17 amLODIPine BESYLATE [Amlodipine 10 mg PO QAM 06/24/15 08/10/17 Besylate] Cyclobenzaprine [Flexeril] 10 mg PO TID PRN 02/20/16 08/10/17 Omeprazole [PriLOSEC] 20 mg PO DAILY 02/20/16 08/10/17 HYDROmorphone [Dilaudid] 2 mg PO Q8H PRN 03/28/16 08/10/17 hydrALAZINE HCL [Apresoline] 100 mg PO TID 03/28/16 08/10/17 hydrOXYzine HCL 10 mg PO Q8H PRN 11/15/16 08/10/17 chlorproMAZINE [Thorazine] 25 mg PO BID 12/28/16 08/10/17 Cinacalcet HCl [Sensipar] 60 mg PO Q48H 01/31/17 08/10/17 Sevelamer [Renvela] 800 mg PO AC-TID 01/31/17 08/10/17 Gabapentin [Neurontin] 200 mg PO MOWEFR 04/12/17 08/10/17 Carvedilol [Coreg] 25 mg PO BID 05/24/17 08/10/17 Docusate [Colace] 100 mg PO DAILY 05/24/17 08/10/17 INSULIN LISPRO (humaLOG) [humaLOG] See Protocol SQ AC-TID PRN 05/24/17 08/10/17 Ondansetron Odt [Zofran ODT] 4 mg PO DAILY PRN 05/24/17 08/10/17 Neela-Cherelle 1 tab PO DAILY 05/24/17 08/10/17 Sodium Bicarbonate Tab 650 mg PO TID 05/24/17 08/10/17 Vitamin B Complex 2 cap PO DAILY 05/24/17 08/10/17 Famotidine [Pepcid] 20 mg PO BID 08/08/17 08/10/17 Fluocinonide 0.05% [Lidex 0.05% 15 applic TOPICAL DAILY 08/08/17 08/10/17 cream] Lisinopril [Prinivil] 5 mg PO DAILY 08/08/17 08/10/17 cloNIDine HCL [Catapres] 0.2 mg PO TID 08/08/17 08/10/17 oxyCODONE HCL [Roxicodone] 15 mg PO Q4H PRN 08/08/17 08/10/17 Previous Rx's Medication Instructions Recorded Insulin Glargine [Lantus] 12 unit SQ HS #0 12/05/16 Sucralfate [Carafate] 1 gm PO BID #100 ml 04/13/17 Allergies Allergy/AdvReac Type Severity Reaction Status Date / Time codeine Allergy Rash/Hives Verified 08/10/17 14:02 metoclopramide HCl AdvReac Muscle Verified 08/10/17 14:02 [From Reglan] Spasms morphine AdvReac Increases Verified 08/10/17 14:02 Pain Review of Systems ROS Statement: Those systems with pertinent positive or pertinent negative responses have been documented in the HPI. ROS Other: All systems not noted in ROS Statement are negative. Past Medical History Past Medical History: Chest Pain / Angina, Heart Failure, Diabetes Mellitus, Dialysis, Eye Disorder, GERD/Reflux, Hypertension, Renal Disease, Seizure Disorder, Thyroid Disorder Additional Past Medical History / Comment(s): IDDM type I/brittle, chronic abdominal pain, gastroparesis, cyclic vomiting and had gastric pacemaker inserted 05/17/17 at [facility], chronic renal failure stage IV, hemodialysis M/W/FR-4 hr, past peritoneal dialysis with peritonitis, pancreatitis, heart murmur, diabetic retinopathy bilaterally, retinal detachment with surgery, bilateral hands, legs and feet diabetic neuropathy, hypothyroid, hiatal hernia, sinusitis , bronchitis, chronic back pain, anemia, last seizure in 2015. History of Any Multi-Drug Resistant Organisms: None Reported Past Surgical History: Cholecystectomy, Heart Catheterization, Hernia Repair Additional Past Surgical History / Comment(s): 05/17/17 Gastric pacemaker inserted at [facility], bilateral retinal reattachment sx, hemodialysis catheter in Feb 2013- lt arm fistual, L inguinal hernia, 2009 cardiac cath. Past Anesthesia/Blood Transfusion Reactions: No Reported Reaction Additional Past Anesthesia/Blood Transfusion Reaction / Comment(s): Uvula edema with gallbladder surgery that occluded airway and caused respiratory arrest. Past Psychological History: Anxiety, Depression Smoking Status: Former smoker Past Alcohol Use History: None Reported Past Drug Use History: None Reported - Past Family History Father History Unknown: Yes Mother History Unknown: Yes Family Medical History: COPD Additional Family Medical History / Comment(s): Mother has never smoked. Mother' s brother had diabetes and multiple sclerosis. Brother(s) Family Medical History: Diabetes Mellitus Additional Family Medical History / Comment(s): multiple sclerosis General Exam Limitations: no limitations Course Vital Signs 08/10/17 08/10/17 08/10/17 13:58 14:30 15:30 Temperature 98.2 F Pulse Rate 80 99 79 Respiratory 20 20 20 Rate Blood Pressure 213/100 205/99 216/103 O2 Sat by Pulse 97 97 97 Oximetry Medical Decision Making - Lab Data Result diagrams: 08/10/17 14:35 08/10/17 14:35 Lab Results 08/10/17 08/10/17 08/10/17 Range/Units 14:35 14:35 14:35 WBC 6.2 (3.8-10.6) k/uL RBC 3.51 L (4.30-5.90) m/uL Hgb 10.4 L (13.0-17.5) gm/dL Hct 31.9 L (39.0-53.0) % MCV 91.0 (80.0-100.0) fL MCH 29.7 (25.0-35.0) pg MCHC 32.6 (31.0-37.0) g/dL RDW 16.8 H (11.5-15.5) % Plt Count 225 (150-450) k/uL Neutrophils % 70 % Lymphocytes % 14 % Monocytes % 8 % Eosinophils % 5 % Basophils % 1 % Neutrophils # 4.3 (1.3-7.7) k/uL Lymphocytes # 0.9 L (1.0-4.8) k/uL Monocytes # 0.5 (0-1.0) k/uL Eosinophils # 0.3 (0-0.7) k/uL Basophils # 0.1 (0-0.2) k/uL Anisocytosis Slight Sodium 138 (137-145) mmol/L Potassium 3.8 (3.5-5.1) mmol/L Chloride 91 L (98-107) mmol/L Carbon Dioxide 31 H (22-30) mmol/L Anion Gap 16 mmol/L BUN 35 H (9-20) mg/dL Creatinine 5.70 H* (0.66-1.25) mg/dL Est GFR (CKD-EPI)AfAm 13 (>60 ml/min/1.73 sqM) Est GFR (CKD-EPI)NonAf 12 (>60 ml/min/1.73 sqM) Glucose 254 H (74-99) mg/dL Calcium 9.2 (8.4-10.2) mg/dL Total Bilirubin 0.8 (0.2-1.3) mg/dL AST 29 (17-59) U/L ALT 53 (21-72) U/L Alkaline Phosphatase 221 H (38-126) U/L Troponin I 0.030 (0.000-0.034) ng/mL Total Protein 7.4 (6.3-8.2) g/dL Albumin 4.4 (3.5-5.0) g/dL Amylase 55 (30-110) U/L Lipase 59 (23-300) U/L Critical Care Time Total Critical Care Time: 30 Critical Care Time: She comes in with a blood pressure of 213/100 complaining about excruciating abdominal pain he is on now antihypertensive agents but he said he been nauseous and has not been keeping any food or meds down with Hydralazine 20 mg IV and his lactate is 5.7 initially he was afebrile no acute do blood cultures urine cultures will start him on a broad-spectrum antibiotics blood Rocephin and ankle considering is a renal failure we will allow admitted to Dr. Juan service his shop tailor be consulted, after pain medication as blood pressure was repeated this time it was 220 systolic considering that and will give him a his Norvasc O medication 10 mg by mouth he had his hydralazine 20 mg IV and then I plan to game has Catapres 0.2 mg by mouth, he be admitted to Dr. Juan's service and Dr. Martinez be consulted. EKG had some new changes noticed some T-wave inversion in lead V2 and T-wave inversion in V6 also noticed a hint of ST elevation in V3 I plan to repeat the EKG had also considering is a 41 Is a brittle diabetic and I will consult cardiology and troponin is normal so far its 0.030 and repeat the troponin he been in the ER to see if this it will cardiac event and have him second EKG was done at 1550, ventricular rate is 76 CT interval is 126 QRS duration is 92 QT/QTc is 448/504 and a recent T-wave inversion in lead 1 and also noticed T-wave inversion in V6no hint of ST elevation of this EKG Disposition Clinical Impression: Hypertension, Abdominal pain, Renal failure, Chest pain Disposition: ADMITTED IP TO THIS HOSP Referrals: Kala Onofre MD [Primary Care Provider] - 1-2 days
[2017-08-10 14:59] LABS: Anisocytosis Slight; Basophils # (A) 0.1 k/uL (0-0.2); Basophils % (A) 1 %; Eosinophils # (A) 0.3 k/uL (0-0.7); Eosinophils % (A) 5 %; HCT 31.9 % (39.0-53.0); HGB 10.4 gm/dL (13.0-17.5); Lymphocytes # (A) 0.9 k/uL (1.0-4.8); Lymphocytes % (A) 14 %; MCH 29.7 pg (25.0-35.0); MCHC 32.6 g/dL (31.0-37.0); Mean Platelet Volume 7.9; Monocytes # (A) 0.5 k/uL (0-1.0); Monocytes % (A) 8 %; Neutrophils # (A) 4.3 k/uL (1.3-7.7); Neutrophils % (A) 70 %; Platelet Count 225 k/uL (150-450); RBC 3.51 m/uL (4.30-5.90); RDW 16.8 % (11.5-15.5); WBC 6.2 k/uL (3.8-10.6)
[2017-08-10 15:12] LABS: Albumin 4.4 g/dL (3.5-5.0); Calcium 9.2 mg/dL (8.4-10.2); Potassium 3.8 mmol/L (3.5-5.1); Total Bilirubin 0.8 mg/dL (0.2-1.3); Total Protein 7.4 g/dL (6.3-8.2)
[2017-08-10] MEDS ORDERED: hydrALAZINE HCL 20 MG/ML 1 ML VIAL IVP STA (15:23)
[2017-08-10] MEDS ORDERED: VANCOMYCIN IV PER PHARMACY 1 EACH MISC MISCELLANE PRN (15:26)
[2017-08-10] MEDS ORDERED: cefTRIAXone 2,000 MG in SODIUM CHLORIDE 0.9% 100 ML IVPB STA (15:26)
[2017-08-10] MEDS ORDERED: cefTRIAXone IN SWFI 2,000 MG/20 ML SYRINGE IVP STA (15:38)
[2017-08-10] MEDS ORDERED: amLODIPine 10 MG TAB PO STA (15:40)
[2017-08-10] MEDS ORDERED: cloNIDine HCL 0.2 MG TAB PO STA (15:41)
[2017-08-10] MEDS ORDERED: VANCOMYCIN 1,250 MG in SODIUM CHLORIDE 0.9% 250 ML IVPB STA ×2 (15:41→16:09)
[2017-08-10] MEDS ORDERED: diphenhydrAMINE 50 MG/ML 1 ML VIAL IVP STA (15:51)
--- NOTE | 2017-08-10 15:52 | XR ---
EXAMINATION TYPE: Acute abdominal series DATE OF EXAM: 08/10/2017 COMPARISON: Chest 06/02/2017 and abdomen 07/31/2017 HISTORY: 41-year-old male with pain TECHNIQUE: 3 views FINDINGS: Frontal view of the chest shows borderline to mild enlargement of the heart with diffuse interstitial prominence which is unchanged. No consolidation or pleural effusion. No evidence for free intraperitoneal air. A few small air-fluid levels in the right mid abdomen. Exte nsive arterial calcifications suggest chronic kidney disease. Surgical clips projecting at the right paramedian mid abdomen. Generator device projects at the left paramedian mid abdomen. Phleboliths in the pelvis. IMPRESSION: 1. Borderline to mild cardiomegaly and chronic parenchymal changes. No acute cardiopulmonary process seen. 2. No evidence for free air or bowel obstruction. 3. A few small air-fluid levels in the right side of the abdomen could represent a regional ileus or enteritis. 4. Extensive arterial calcifications suggest chronic kidney disease.
[2017-08-10] MEDS ORDERED: ONDANSETRON 4 MG/2 ML VIAL IVP PRN (15:55)
[2017-08-10] MEDS ORDERED: ACETAMINOPHEN TAB 325 MG TAB PO PRN (15:55)
[2017-08-10] MEDS ORDERED: NALOXONE 0.4 MG/ML 1 ML VIAL IV PRN (15:55)
[2017-08-10] MEDS ORDERED: CYCLOBENZAPRINE 10 MG TAB PO PRN (15:59)
[2017-08-10] MEDS ORDERED: hydrOXYzine HCL 10 MG TAB PO PRN (15:59)
[2017-08-10] MEDS ORDERED: LORazepam 1 MG TAB PO PRN (15:59)
[2017-08-10] MEDS ORDERED: HYDROmorphone 2 MG TAB PO PRN (15:59)
[2017-08-10] MEDS ORDERED: SODIUM BICARBONATE TAB 650 MG TAB PO SCH (16:00)
[2017-08-10 16:45] LABS: Troponin I 0.025 ng/mL (0.000-0.034)
[2017-08-10] MEDS ORDERED: CARVEDILOL 12.5 MG TAB PO SCH (17:30)
[2017-08-10] MEDS ORDERED: SEVELAMER 800 MG TAB PO SCH (17:30)
[2017-08-10 17:38] VITALS: BP 158/84; PULSE 88; RESP 18; BMI 19.5
[2017-08-10] MEDS ORDERED: LORazepam 0.5 MG TAB PO PRN (17:57)
[2017-08-10] MEDS ORDERED: hydrALAZINE HCL 20 MG/ML 1 ML VIAL IVP PRN (17:57)
[2017-08-10] MEDS ORDERED: cloNIDine HCL 0.1 MG TAB PO PRN (17:57)
[2017-08-10] MEDS ORDERED: PANTOPRAZOLE 40 MG/10 ML VIAL IVP SCH (18:00)
[2017-08-10] MEDS ORDERED: FAMOTIDINE 20 MG TAB PO SCH (18:00)
--- NOTE | 2017-08-10 20:27 | HP ---
HISTORY AND PHYSICAL HISTORY AND PHYSICAL AND DISCHARGE SUMMARY: CHIEF COMPLAINTS: Abdominal pain, nausea, vomiting. HISTORY OF PRESENT ILLNESS: This 41-year-old gentleman was admitted with abdominal pain and hypertension elevation. The patient admitted with hypertension, abdominal pain, renal failure, chest pain, but however the patient left the hospital AGAINST MEDICAL ADVICE before being seen. Please refer to the staff notes and as the ER notes for further information. FINAL DIAGNOSES: 1. Hypertension. 2. Abdominal pain. 3. Renal failure. 4. Chest pain. MMODL / IJN: [id number] / MTDD
[2017-08-10] MEDS ORDERED: INSULIN DETEMIR 100 UNIT/ML 10 ML VIAL SQ SCH (21:00)
[2017-08-10] MEDS ORDERED: TEMAZEPAM 15 MG CAP PO PRN (21:00)
[2017-08-10] MEDS ORDERED: HEPARIN SODIUM,PORCINE 5,000 UNIT/ML 1 ML VIAL SQ SCH (21:00)
[2017-08-10] MEDS ORDERED: chlorproMAZINE 25 MG TAB PO SCH (21:00)
[2017-08-10] MEDS ORDERED: SUCRALFATE 1 GM TAB PO SCH (21:00)
[2017-08-10] MEDS ORDERED: hydrALAZINE HCL 50 MG TAB PO SCH (22:00)
[2017-08-10] MEDS ORDERED: cloNIDine HCL 0.2 MG TAB PO SCH (22:00)
[2017-08-11] MEDS ORDERED: amLODIPine 10 MG TAB PO SCH (09:00)
[2017-08-11] MEDS ORDERED: CINACALCET 30 MG TAB PO SCH (09:00)
[2017-08-11] MEDS ORDERED: LISINOPRIL 5 MG TAB PO SCH (09:00)
[2017-08-11] MEDS ORDERED: DOCUSATE 100 MG CAP PO SCH (09:00)
[2017-08-11] MEDS ORDERED: CYANOCOBALAMIN-FA-PYRIDOXINE 1 EACH TAB PO SCH (09:00)
[2017-08-11] MEDS ORDERED: NON-FORMULARY DRUG (Omeprazole 20 MG) PO SCH (09:00)
[2017-08-11] MEDS ORDERED: BETAMETHASONE DIPROPIONATE 0.05% CREAM 15 GM TUBE TOPICAL SCH (09:00)
[2017-08-11] MEDS ORDERED: VANCOMYCIN 1,250 MG in SODIUM CHLORIDE 0.9% 250 ML IVPB ONE (12:00)
[2017-08-12] MEDS ORDERED: GABAPENTIN 100 MG CAP PO SCH (09:00)
== END 2017-08-10 19:24 | disposition left against medical advice (07) | DRG 292 ==
LOC: EC 13:35 → 6SEL 15:59
PROVIDERS: ADMIT Hospitalist; ATTEND Hospitalist
DX: I13.0 Hypertensive heart and chronic kidney disease with heart failure and stage 1 through stage 4 chronic kidney disease, or unspecified chronic kidney disease (principal); N18.4 Chronic kidney disease, stage 4 (severe); G40.909 Epilepsy, unspecified, not intractable, without status epilepticus; R10.9 Unspecified abdominal pain; I50.9 Heart failure, unspecified; E11.43 Type 2 diabetes mellitus with diabetic autonomic (poly)neuropathy; E11.319 Type 2 diabetes mellitus with unspecified diabetic retinopathy without macular edema; E11.42 Type 2 diabetes mellitus with diabetic polyneuropathy; K31.84 Gastroparesis; E03.9 Hypothyroidism, unspecified; K21.9 Gastro-esophageal reflux disease without esophagitis; G89.29 Other chronic pain; K44.9 Diaphragmatic hernia without obstruction or gangrene; M54.9 Dorsalgia, unspecified; R01.1 Cardiac murmur, unspecified; R07.9 Chest pain, unspecified; F32.9 Major depressive disorder, single episode, unspecified; Z99.2 Dependence on renal dialysis; Z87.891 Personal history of nicotine dependence; Z79.4 Long term (current) use of insulin; Z79.899 Other long term (current) drug therapy; Z88.5 Allergy status to narcotic agent; Z88.8 Allergy status to other drugs, medicaments and biological substances; Z90.49 Acquired absence of other specified parts of digestive tract; Z96.89 Presence of other specified functional implants; Z82.0 Family history of epilepsy and other diseases of the nervous system; Z82.5 Family history of asthma and other chronic lower respiratory diseases; Z83.3 Family history of diabetes mellitus
CPT/HCPCS: 36415; 74022; 80053; 82009; 82150; 82550; 82553; 83690; 84484; 85025; 87040; 93005; 96361; 96374; 96375; 99284; 99285

== ENCOUNTER 2017-08-14 10:43 | Emergency (ER) | payer MEDICARE, OTHER ==
[2017-08-14] MEDS ORDERED: ONDANSETRON 4 MG/2 ML VIAL IVP STA ×2 (11:24→13:15)
[2017-08-14] MEDS ORDERED: HYDROmorphone 0.5 MG/0.5 ML SYRINGE IVP STA ×2 (11:24→13:15)
[2017-08-14] MEDS ORDERED: diphenhydrAMINE 50 MG/ML 1 ML VIAL IVP STA (11:24)
[2017-08-14] MEDS ORDERED: LORazepam 2 MG/ML INJ IV STA (11:25)
[2017-08-14] MEDS ORDERED: hydrALAZINE HCL 20 MG/ML 1 ML VIAL IVP STA (11:34)
--- NOTE | 2017-08-14 11:51 | ED ---
Abdominal Pain HPI - General Chief Complaint: Abdominal Pain Stated Complaint: abdominal pain Time Seen by Provider: 08/14/17 11:24 Source: patient, EMS, RN notes reviewed Mode of arrival: EMS Limitations: no limitations - History of Present Illness Initial Comments: This a 41-year-old male presents emergency Department with chief complaint of abdominal pain, nausea vomiting. Patient states symptoms worsened this morning. Patient has chronic issues cleaned diabetes, dialysis, chronic abdominal pain. Patient states cannot be on any of his meds. He states approximately 2 months ago he had similar placed in his abdomen by Dr. Chen. Patient reports no fever no chills. Patient states blood pressure is elevated because he has not been unable take his medications. Patient states that this is not out of the usual for his normal condition. - Related Data Home Medications Medication Instructions Recorded Confirmed LORazepam [Ativan] 0.5 - 1 mg PO DAILY PRN 06/06/14 08/14/17 amLODIPine BESYLATE [Amlodipine 10 mg PO QAM 06/24/15 08/14/17 Besylate] Cyclobenzaprine [Flexeril] 10 mg PO TID PRN 02/20/16 08/14/17 Omeprazole [PriLOSEC] 20 mg PO DAILY 02/20/16 08/14/17 HYDROmorphone [Dilaudid] 2 mg PO Q8H PRN 03/28/16 08/14/17 hydrALAZINE HCL [Apresoline] 100 mg PO TID 03/28/16 08/14/17 hydrOXYzine HCL 10 mg PO Q8H PRN 11/15/16 08/14/17 chlorproMAZINE [Thorazine] 25 mg PO BID 12/28/16 08/14/17 Cinacalcet HCl [Sensipar] 60 mg PO Q48H 01/31/17 08/14/17 Sevelamer [Renvela] 800 mg PO AC-TID 01/31/17 08/14/17 Gabapentin [Neurontin] 200 mg PO MOWEFR 04/12/17 08/14/17 Carvedilol [Coreg] 25 mg PO BID 05/24/17 08/14/17 Docusate [Colace] 100 mg PO DAILY 05/24/17 08/14/17 INSULIN LISPRO (humaLOG) [humaLOG] See Protocol SQ AC-TID PRN 05/24/17 08/14/17 Ondansetron Odt [Zofran ODT] 4 mg PO DAILY PRN 05/24/17 08/14/17 Neela-Cherelle 1 tab PO DAILY 05/24/17 08/14/17 Sodium Bicarbonate Tab 650 mg PO TID 05/24/17 08/14/17 Vitamin B Complex 2 cap PO DAILY 05/24/17 08/14/17 Famotidine [Pepcid] 20 mg PO BID 08/08/17 08/14/17 Fluocinonide 0.05% [Lidex 0.05% 15 applic TOPICAL DAILY 08/08/17 08/14/17 cream] Lisinopril [Prinivil] 5 mg PO DAILY 08/08/17 08/14/17 cloNIDine HCL [Catapres] 0.2 mg PO TID 08/08/17 08/14/17 oxyCODONE HCL [Roxicodone] 15 mg PO Q4H PRN 08/08/17 08/14/17 Previous Rx's Medication Instructions Recorded Insulin Glargine [Lantus] 12 unit SQ HS #0 12/05/16 Sucralfate [Carafate] 1 gm PO BID #100 ml 04/13/17 Allergies Allergy/AdvReac Type Severity Reaction Status Date / Time codeine Allergy Rash/Hives Verified 08/14/17 10:57 metoclopramide HCl AdvReac Muscle Verified 08/14/17 10:57 [From Reglan] Spasms morphine AdvReac Increases Verified 08/14/17 10:57 Pain Review of Systems ROS Statement: Those systems with pertinent positive or pertinent negative responses have been documented in the HPI. ROS Other: All systems not noted in ROS Statement are negative. Past Medical History Past Medical History: Chest Pain / Angina, Diabetes Mellitus, Dialysis, Eye Disorder, GERD/Reflux, Hypertension, Renal Disease, Seizure Disorder, Thyroid Disorder Additional Past Medical History / Comment(s): IDDM type I/brittle, chronic abdominal pain, gastroparesis, cyclic vomiting and had gastric pacemaker inserted 05/17/17 at [facility], chronic renal failure stage IV, hemodialysis M/W/FR-4 hr, past peritoneal dialysis with peritonitis, pancreatitis, heart murmur, diabetic retinopathy bilaterally, retinal detachment with surgery, bilateral hands, legs and feet diabetic neuropathy, hypothyroid, hiatal hernia, sinusitis , bronchitis, chronic back pain, anemia, last seizure in 2016. History of Any Multi-Drug Resistant Organisms: None Reported Past Surgical History: Cholecystectomy, Heart Catheterization, Hernia Repair Additional Past Surgical History / Comment(s): 05/17/17 Gastric pacemaker inserted at [facility], bilateral retinal reattachment sx, hemodialysis catheter in Feb 2013- lt arm fistual, L inguinal hernia, 2009 cardiac cath. Past Anesthesia/Blood Transfusion Reactions: No Reported Reaction Additional Past Anesthesia/Blood Transfusion Reaction / Comment(s): Uvula edema with gallbladder surgery that occluded airway and caused respiratory arrest. Past Psychological History: Anxiety, Depression Smoking Status: Former smoker Past Alcohol Use History: None Reported Past Drug Use History: None Reported - Past Family History Father History Unknown: Yes Mother History Unknown: Yes Family Medical History: COPD Additional Family Medical History / Comment(s): Mother has never smoked. Mother' s brother had diabetes and multiple sclerosis. Brother(s) Family Medical History: Diabetes Mellitus Additional Family Medical History / Comment(s): multiple sclerosis General Exam Limitations: no limitations General appearance: alert, in no apparent distress Head exam: Present: atraumatic, normocephalic, normal inspection Eye exam: Present: normal appearance, PERRL, EOMI. Absent: scleral icterus, conjunctival injection, periorbital swelling ENT exam: Present: normal exam, normal oropharynx, mucous membranes moist Neck exam: Present: normal inspection. Absent: tenderness, meningismus, lymphadenopathy Respiratory exam: Present: normal lung sounds bilaterally. Absent: respiratory distress, wheezes, rales, rhonchi, stridor Cardiovascular Exam: Present: regular rate, normal rhythm, normal heart sounds. Absent: systolic murmur, diastolic murmur, rubs, gallop, clicks GI/Abdominal exam: Present: soft, tenderness (Moderate severe tenderness diffusely), normal bowel sounds. Absent: distended, guarding, rebound, rigid Back exam: Absent: CVA tenderness (R), CVA tenderness (L) Skin exam: Present: warm, dry, intact, normal color. Absent: rash Course Vital Signs 08/14/17 08/14/17 08/14/17 10:50 12:33 12:37 Temperature 97.9 F Pulse Rate 75 80 Respiratory 16 22 Rate Blood Pressure 217/124 258/126 242/114 O2 Sat by Pulse 95 100 Oximetry 08/14/17 14:12 Temperature Pulse Rate 65 Respiratory 20 Rate Blood Pressure 196/98 O2 Sat by Pulse 99 Oximetry Medical Decision Making - Medical Decision Making 41-year-old male presents from for chronic issues. Patient was given multiple medications for nausea, blood pressure and diabetes. Patient has improved he is resting comfortably in bed at this time in no distress. Patient will be discharged return parameters were discussed. - Lab Data Result diagrams: 08/14/17 12:10 08/14/17 12:10 Lab Results 08/14/17 08/14/17 08/14/17 Range/Units 12:10 12:10 12:42 WBC 9.6 (3.8-10.6) k/uL RBC 3.32 L (4.30-5.90) m/uL Hgb 10.2 L (13.0-17.5) gm/dL Hct 31.7 L (39.0-53.0) % MCV 95.3 (80.0-100.0) fL MCH 30.7 (25.0-35.0) pg MCHC 32.2 (31.0-37.0) g/dL RDW 19.1 H (11.5-15.5) % Plt Count 251 (150-450) k/uL Neutrophils % 77 % Lymphocytes % 11 % Monocytes % 4 % Eosinophils % 6 % Basophils % 1 % Neutrophils # 7.4 (1.3-7.7) k/uL Lymphocytes # 1.0 (1.0-4.8) k/uL Monocytes # 0.4 (0-1.0) k/uL Eosinophils # 0.5 (0-0.7) k/uL Basophils # 0.1 (0-0.2) k/uL Anisocytosis Slight Macrocytosis Slight Sodium 139 (137-145) mmol/L Potassium 4.4 (3.5-5.1) mmol/L Chloride 92 L (98-107) mmol/L Carbon Dioxide 26 (22-30) mmol/L Anion Gap 21 mmol/L BUN 43 H (9-20) mg/dL Creatinine 7.54 H* (0.66-1.25) mg/dL Est GFR (CKD-EPI)AfAm 9 (>60 ml/min/1.73 sqM) Est GFR (CKD-EPI)NonAf 8 (>60 ml/min/1.73 sqM) Glucose 330 H (74-99) mg/dL POC Glucose (mg/dL) 323 H (75-99) mg/dL POC [employer] Consultant ID Maryjane Nichols Calcium 9.3 (8.4-10.2) mg/dL Total Bilirubin 0.8 (0.2-1.3) mg/dL AST 20 (17-59) U/L ALT 31 (21-72) U/L Alkaline Phosphatase 182 H (38-126) U/L Total Protein 7.8 (6.3-8.2) g/dL Albumin 4.7 (3.5-5.0) g/dL Amylase 81 (30-110) U/L Lipase 213 (23-300) U/L Acetone, Qual Negative (Negative) Disposition Clinical Impression: Nausea & vomiting, Abdominal pain, Hypertension, Chronic renal failure, Hyperglycemia Disposition: HOME SELF-CARE Condition: Stable Instructions: Abdominal Pain (ED) Additional Instructions: Please return to the Emergency Department if symptoms worsen or any other concerns. Is patient prescribed a controlled substance at d/c from ED?: No Referrals: Kala Onofre MD [Primary Care Provider] - 1-2 days Time of Disposition: 14:19
[2017-08-14 12:21] LABS: Anisocytosis Slight; Basophils # (A) 0.1 k/uL (0-0.2); Basophils % (A) 1 %; Eosinophils # (A) 0.5 k/uL (0-0.7); Eosinophils % (A) 6 %; HCT 31.7 % (39.0-53.0); HGB 10.2 gm/dL (13.0-17.5); Lymphocytes % (A) 11 %; MCH 30.7 pg (25.0-35.0); MCHC 32.2 g/dL (31.0-37.0); MCV 95.3 fL (80.0-100.0); Macrocytosis Slight; Mean Platelet Volume 7.2; Monocytes # (A) 0.4 k/uL (0-1.0); Monocytes % (A) 4 %; Neutrophils # (A) 7.4 k/uL (1.3-7.7); Neutrophils % (A) 77 %; Platelet Count 251 k/uL (150-450); RBC 3.32 m/uL (4.30-5.90); RDW 19.1 % (11.5-15.5); WBC 9.6 k/uL (3.8-10.6)
[2017-08-14] MEDS: cloNIDine HCL 0.2 MG TAB PO STA ×2 (12:23→12:32)
[2017-08-14 12:43] LABS: Glucose,Whole Blood 323 mg/dL (75-99)
[2017-08-14 12:53] LABS: ALT 31 U/L (21-72); AST 20 U/L (17-59); Albumin 4.7 g/dL (3.5-5.0); Alkaline Phosphatase 182 U/L (38-126); Amylase 81 U/L (30-110); Anion Gap 21 mmol/L; Blood Urea Nitrogen 43 mg/dL (9-20); Calcium 9.3 mg/dL (8.4-10.2); Carbon Dioxide 26 mmol/L (22-30); Chloride 92 mmol/L (98-107); Glucose 330 mg/dL (74-99); Lipase 213 U/L (23-300); Potassium 4.4 mmol/L (3.5-5.1); Sodium 139 mmol/L (137-145); Total Bilirubin 0.8 mg/dL (0.2-1.3); Total Protein 7.8 g/dL (6.3-8.2)
[2017-08-14] MEDS ORDERED: LABETALOL 5 MG/ML VIAL MDV IVP STA (13:14)
[2017-08-14] MEDS ORDERED: INSULIN REGULAR 100 UNIT/ML VIAL IV ONE (13:16)
[2017-08-14] MEDS ORDERED: PROMETHAZINE INJ 25 MG in SODIUM CHLORIDE 0.9% 50 ML IVPB STA (13:52)
[2017-08-14 14:32] VITALS: BP 180/92; PULSE 68; RESP 18; TEMP 97.8
== END 2017-08-14 14:35 | disposition home or self-care (01) ==
LOC: EC 10:43
DX: I12.9 Hypertensive chronic kidney disease with stage 1 through stage 4 chronic kidney disease, or unspecified chronic kidney disease (principal); E10.65 Type 1 diabetes mellitus with hyperglycemia; R10.9 Unspecified abdominal pain; N18.4 Chronic kidney disease, stage 4 (severe); E10.22 Type 1 diabetes mellitus with diabetic chronic kidney disease; E10.319 Type 1 diabetes mellitus with unspecified diabetic retinopathy without macular edema; E10.40 Type 1 diabetes mellitus with diabetic neuropathy, unspecified; K21.9 Gastro-esophageal reflux disease without esophagitis; G40.909 Epilepsy, unspecified, not intractable, without status epilepticus; E03.9 Hypothyroidism, unspecified; F41.9 Anxiety disorder, unspecified; Z79.4 Long term (current) use of insulin; Z87.891 Personal history of nicotine dependence; Z79.899 Other long term (current) drug therapy; Z88.5 Allergy status to narcotic agent; Z88.8 Allergy status to other drugs, medicaments and biological substances; Z90.49 Acquired absence of other specified parts of digestive tract; Z86.79 Personal history of other diseases of the circulatory system; Z95.9 Presence of cardiac and vascular implant and graft, unspecified; Z97.8 Presence of other specified devices; Z99.2 Dependence on renal dialysis; Z83.3 Family history of diabetes mellitus
CPT/HCPCS: 36415; 80053; 82150; 82009; 83690; 85025; 99284; 96374; 96375 ×5; 96376 ×2; J2060; J0360; J1200; J2405; J1170

== ENCOUNTER 2017-09-13 15:45 | Emergency (ER) | payer MEDICARE, OTHER ==
[2017-09-13 15:52] VITALS: RESP 18
[2017-09-13] MEDS ORDERED: LORazepam 2 MG/ML INJ IV STA ×2 (15:59→17:51)
[2017-09-13] MEDS ORDERED: ONDANSETRON 4 MG/2 ML VIAL IVP STA ×2 (15:59→17:39)
[2017-09-13] MEDS ORDERED: diphenhydrAMINE 50 MG/ML 1 ML VIAL IVP STA (15:59)
[2017-09-13] MEDS ORDERED: SODIUM CHLORIDE 0.9% 1,000 ML IV STA (15:59)
--- NOTE | 2017-09-13 16:04 | ED ---
General Adult HPI - General Chief complaint: Abdominal Pain Stated complaint: Abd pain Time Seen by Provider: 09/13/17 15:49 Source: patient, EMS, RN notes reviewed, old records reviewed Mode of arrival: EMS Limitations: no limitations - History of Present Illness Initial comments: Patient 42-year-old male significant past medical history for diabetes, dialysis , chronic abdominal pain, presented to the emergency room today by EMS, with chief complaint of increased nausea vomiting and abdominal pain. Patient does admit that these symptoms are consistent with abdominal pain that is had in the past. He states it started right after his dialysis finished today. Patient does admit to some cough congestion. He denies any other complaints or symptoms. Patient denies any recent fever, chills, shortness of breath, chest pain, back pain, headaches or visual changes, or any other complaints. - Related Data Home Medications Medication Instructions Recorded Confirmed LORazepam [Ativan] 0.5 - 1 mg PO DAILY PRN 06/06/14 09/13/17 amLODIPine BESYLATE [Amlodipine 10 mg PO QAM 06/24/15 09/13/17 Besylate] hydrALAZINE HCL [Apresoline] 100 mg PO TID 03/28/16 09/13/17 chlorproMAZINE [Thorazine] 25 mg PO BID 12/28/16 09/13/17 Cinacalcet HCl [Sensipar] 60 mg PO Q48H 01/31/17 09/13/17 Sevelamer [Renvela] 2,400 mg PO AC-TID 01/31/17 09/13/17 Carvedilol [Coreg] 25 mg PO BID 05/24/17 09/13/17 Docusate [Colace] 100 mg PO DAILY 05/24/17 09/13/17 INSULIN LISPRO (humaLOG) [humaLOG] See Protocol SQ AC-TID PRN 05/24/17 09/13/17 Ondansetron Odt [Zofran ODT] 4 mg PO DAILY PRN 05/24/17 09/13/17 Neela-Cherelle 1 tab PO DAILY 05/24/17 09/13/17 Sodium Bicarbonate Tab 650 mg PO TID 05/24/17 09/13/17 Vitamin B Complex 2 cap PO DAILY 05/24/17 09/13/17 Famotidine [Pepcid] 20 mg PO BID 08/08/17 09/13/17 Lisinopril [Prinivil] 5 mg PO DAILY 08/08/17 09/13/17 cloNIDine HCL [Catapres] 0.2 mg PO TID 08/08/17 09/13/17 oxyCODONE HCL [Roxicodone] 15 mg PO Q4H PRN 08/08/17 09/13/17 Betamethasone Dipropionate 1 applic TOPICAL BID 09/13/17 09/13/17 [Betamethasone Dipropionate 0.05%] Ketoconazole 2% Shampoo [Nizoral] 1 applic TOPICAL DAILY 09/13/17 09/13/17 Previous Rx's Medication Instructions Recorded Insulin Glargine [Lantus] 12 unit SQ HS #0 12/05/16 Allergies Allergy/AdvReac Type Severity Reaction Status Date / Time codeine Allergy Rash/Hives Verified 09/13/17 15:52 metoclopramide HCl AdvReac Muscle Verified 09/13/17 15:52 [From Reglan] Spasms morphine AdvReac Increases Verified 09/13/17 15:52 Pain Review of Systems ROS Statement: Those systems with pertinent positive or pertinent negative responses have been documented in the HPI. ROS Other: All systems not noted in ROS Statement are negative. Past Medical History Past Medical History: Chest Pain / Angina, Diabetes Mellitus, Dialysis, Eye Disorder, GERD/Reflux, Hypertension, Renal Disease, Seizure Disorder, Thyroid Disorder Additional Past Medical History / Comment(s): IDDM type I/brittle, chronic abdominal pain, gastroparesis, cyclic vomiting and had gastric pacemaker inserted 05/17/17 at [facility], chronic renal failure stage IV, hemodialysis M/W/FR-4 hr, past peritoneal dialysis with peritonitis, pancreatitis, heart murmur, diabetic retinopathy bilaterally, retinal detachment with surgery, bilateral hands, legs and feet diabetic neuropathy, hypothyroid, hiatal hernia, sinusitis , bronchitis, chronic back pain, anemia, last seizure in 2015. History of Any Multi-Drug Resistant Organisms: None Reported Past Surgical History: Cholecystectomy, Heart Catheterization, Hernia Repair Additional Past Surgical History / Comment(s): 05/17/17 Gastric pacemaker inserted at [facility], bilateral retinal reattachment sx, hemodialysis catheter in Feb 2013- lt arm fistual, L inguinal hernia, 2009 cardiac cath. Past Anesthesia/Blood Transfusion Reactions: No Reported Reaction Additional Past Anesthesia/Blood Transfusion Reaction / Comment(s): Uvula edema with gallbladder surgery that occluded airway and caused respiratory arrest. Past Psychological History: Anxiety, Depression Smoking Status: Former smoker Past Alcohol Use History: None Reported Past Drug Use History: None Reported - Past Family History Father History Unknown: Yes Mother History Unknown: Yes Family Medical History: COPD Additional Family Medical History / Comment(s): Mother has never smoked. Mother' s brother had diabetes and multiple sclerosis. Brother(s) Family Medical History: Diabetes Mellitus Additional Family Medical History / Comment(s): multiple sclerosis General Exam - General Exam Comments Initial Comments: General: The patient is awake and alert, Eye: Pupils are equal, round and reactive to light, extra-ocular movements are intact. No nystagmus. There is normal conjunctiva bilaterally. No signs of icterus. Ears, nose, mouth and throat: There are moist mucous membranes and no oral lesions. Neck: The neck is supple, there is no tenderness or JVD. Cardiovascular: There is a regular rate and rhythm. No murmur, rub or gallop is appreciated. Respiratory: Lungs are clear to auscultation, respirations are non-labored, breath sounds are equal. No wheezes, stridor, rales, or rhonchi. Gastrointestinal: Abdomen soft on palpation. Tender palpation epigastric. No rebound, guarding or CVA tenderness. Musculoskeletal: Normal ROM, no tenderness. Strength 5/5. Sensation intact. Pulses equal bilaterally 2+. Neurological: A&O x 3. CN II-XII intact, There are no obvious motor or sensory deficits. Coordination appears grossly intact. Speech is normal. Skin: Skin is warm and dry and no rashes or lesions are noted. Psychiatric: Cooperative, appropriate mood & affect, normal judgment. Limitations: no limitations Course Vital Signs 09/13/17 09/13/17 09/13/17 15:49 15:52 17:03 Temperature 98.5 F Pulse Rate 87 82 Respiratory 18 18 Rate Blood Pressure 180/92 193/91 O2 Sat by Pulse 92 L 100 Oximetry 09/13/17 17:31 Temperature Pulse Rate Respiratory Rate Blood Pressure O2 Sat by Pulse 94 L Oximetry Medical Decision Making - Medical Decision Making Patient's labs have been reviewed. Patient's. Creatinine elevated he is a dialysis patient to have dialysis today. Patient feeling better here in the emergency room after medications. Is resting comfortably. Initial pulse ox was 92 at triage. Repeated was 97% on room air at this time. Patient will be discharged home. He is advised follow-up returning if any symptoms increase or worsen. - Lab Data Result diagrams: 09/13/17 16:00 09/13/17 16:00 Lab Results 09/13/17 09/13/17 Range/Units 16:00 16:00 WBC 8.4 (3.8-10.6) k/uL RBC 3.29 L (4.30-5.90) m/uL Hgb 10.0 L (13.0-17.5) gm/dL Hct 30.5 L (39.0-53.0) % MCV 92.9 (80.0-100.0) fL MCH 30.3 (25.0-35.0) pg MCHC 32.6 (31.0-37.0) g/dL RDW 16.3 H (11.5-15.5) % Plt Count 145 L (150-450) k/uL Neutrophils % 83 % Lymphocytes % 7 % Monocytes % 4 % Eosinophils % 4 % Basophils % 1 % Neutrophils # 7.0 (1.3-7.7) k/uL Lymphocytes # 0.6 L (1.0-4.8) k/uL Monocytes # 0.3 (0-1.0) k/uL Eosinophils # 0.3 (0-0.7) k/uL Basophils # 0.1 (0-0.2) k/uL Anisocytosis Slight Sodium 138 (137-145) mmol/L Potassium 3.7 (3.5-5.1) mmol/L Chloride 96 L (98-107) mmol/L Carbon Dioxide 27 (22-30) mmol/L Anion Gap 15 mmol/L BUN 45 H (9-20) mg/dL Creatinine 5.80 H* (0.66-1.25) mg/dL Est GFR (CKD-EPI)AfAm 13 (>60 ml/min/1.73 sqM) Est GFR (CKD-EPI)NonAf 11 (>60 ml/min/1.73 sqM) Glucose 135 H (74-99) mg/dL Calcium 8.7 (8.4-10.2) mg/dL Total Bilirubin 1.7 H (0.2-1.3) mg/dL AST 30 (17-59) U/L ALT 52 (21-72) U/L Alkaline Phosphatase 145 H (38-126) U/L Total Protein 6.8 (6.3-8.2) g/dL Albumin 4.1 (3.5-5.0) g/dL Amylase 67 (30-110) U/L Lipase 114 (23-300) U/L Acetone, Qual Negative (Negative) Disposition Clinical Impression: Abdominal pain, Nausea & vomiting Disposition: HOME SELF-CARE Condition: Good Instructions: Abdominal Pain (ED) Additional Instructions: Please follow-up with family doctor in the next 2 days of symptoms have not improved. Please return to emergency room if the symptoms increase or worsen or for any other concerns. Is patient prescribed a controlled substance at d/c from ED?: No Referrals: Kala Onofre MD [Primary Care Provider] - 1-2 days Time of Disposition: 17:43
[2017-09-13 16:12] LABS: Anisocytosis Slight; Basophils # (A) 0.1 k/uL (0-0.2); Basophils % (A) 1 %; Eosinophils # (A) 0.3 k/uL (0-0.7); Eosinophils % (A) 4 %; HCT 30.5 % (39.0-53.0); Lymphocytes # (A) 0.6 k/uL (1.0-4.8); Lymphocytes % (A) 7 %; MCH 30.3 pg (25.0-35.0); MCHC 32.6 g/dL (31.0-37.0); MCV 92.9 fL (80.0-100.0); Mean Platelet Volume 7.8; Monocytes # (A) 0.3 k/uL (0-1.0); Monocytes % (A) 4 %; Neutrophils % (A) 83 %; Platelet Count 145 k/uL (150-450); RBC 3.29 m/uL (4.30-5.90); RDW 16.3 % (11.5-15.5); WBC 8.4 k/uL (3.8-10.6)
[2017-09-13 16:27] LABS: ALT 52 U/L (21-72); AST 30 U/L (17-59); Albumin 4.1 g/dL (3.5-5.0); Alkaline Phosphatase 145 U/L (38-126); Amylase 67 U/L (30-110); Anion Gap 15 mmol/L; Blood Urea Nitrogen 45 mg/dL (9-20); Calcium 8.7 mg/dL (8.4-10.2); Carbon Dioxide 27 mmol/L (22-30); Chloride 96 mmol/L (98-107); Glucose 135 mg/dL (74-99); Lipase 114 U/L (23-300); Potassium 3.7 mmol/L (3.5-5.1); Sodium 138 mmol/L (137-145); Total Bilirubin 1.7 mg/dL (0.2-1.3); Total Protein 6.8 g/dL (6.3-8.2)
--- NOTE | 2017-09-13 16:33 | XR ---
EXAMINATION TYPE: XR chest 2V DATE OF EXAM: 09/13/2017 COMPARISON: 07/02/2017 INDICATION: Cough vomiting nausea TECHNIQUE: Frontal and lateral views of the chest are obtained. FINDINGS: The heart size is enlarged. The pulmonary vasculature is prominent. No suspicious focal consolidations are evident.. IMPRESSION: 1. Correlate for volume overload or early pulmonary edema.
[2017-09-13] MEDS ORDERED: HYDROmorphone 0.5 MG/0.5 ML SYRINGE IVP STA (17:39)
[2017-09-13 18:49] VITALS: BP 155/76; PULSE 89; TEMP 98
== END 2017-09-13 18:50 | disposition home or self-care (01) ==
LOC: EC 15:45
DX: R10.13 Epigastric pain (principal); R11.2 Nausea with vomiting, unspecified; R05 Cough; R09.89 Other specified symptoms and signs involving the circulatory and respiratory systems; K21.9 Gastro-esophageal reflux disease without esophagitis; E03.9 Hypothyroidism, unspecified; E10.22 Type 1 diabetes mellitus with diabetic chronic kidney disease; E10.40 Type 1 diabetes mellitus with diabetic neuropathy, unspecified; I12.0 Hypertensive chronic kidney disease with stage 5 chronic kidney disease or end stage renal disease; N18.5 Chronic kidney disease, stage 5; Z99.2 Dependence on renal dialysis; G40.909 Epilepsy, unspecified, not intractable, without status epilepticus; F32.9 Major depressive disorder, single episode, unspecified; F41.9 Anxiety disorder, unspecified; Z79.899 Other long term (current) drug therapy; Z88.5 Allergy status to narcotic agent; Z88.8 Allergy status to other drugs, medicaments and biological substances; Z95.818 Presence of other cardiac implants and grafts; Z90.49 Acquired absence of other specified parts of digestive tract
CPT/HCPCS: 36415; 80053; 82150; 82009; 83690; 85025; 71046; 99285; 96374; 96375 ×3; 96376 ×2; 96361 ×2; J2060; J1200; J2405; J1170

== ENCOUNTER 2017-09-15 16:57 | Inpatient (IN) | payer MEDICARE, OTHER ==
[2017-09-15] MEDS ORDERED: HYDROmorphone 0.5 MG/0.5 ML SYRINGE IVP STA (17:14)
[2017-09-15] MEDS ORDERED: ONDANSETRON ODT 4 MG TAB PO STA (17:15)
--- NOTE | 2017-09-15 17:23 | ED ---
Abdominal Pain HPI - General Source: patient, family Mode of arrival: ambulatory Limitations: no limitations - History of Present Illness Complaint: abdominal pain -: hour(s) Location: LLQ Migration to: no migration Severity scale (1-10): 8 Consistency: constant Associated Symptoms: nausea <Ann Douglas - Last Filed: 09/15/17 17:16> <Trevin Sanchez - Last Filed: 09/15/17 20:03> - General Chief Complaint: Abdominal Pain Stated Complaint: Abd Pain Time Seen by Provider: 09/15/17 17:04 - History of Present Illness Initial Comments: 42-year-old male presents with left lower quadrant abdominal pain that occurred today. Patient states this is in a different spot than normal. Patient has significant medical history of diabetes kidney failure dialysis gastroparesis" pacemaker in the abdomen". Patient follows with Dr. Bee line locator along with [facility]. Patient states he is nauseous but no vomiting no change of bowels. Patient still having normal bowel movements. Patient eating well. Patient does not urinate due to his condition. Patient states he's been on dialysis for about 10 years. No fevers no back pain no history of kidney stones (Ann Douglas) - Related Data Home Medications Medication Instructions Recorded Confirmed LORazepam [Ativan] 0.5 - 1 mg PO DAILY PRN 06/06/14 09/15/17 amLODIPine BESYLATE [Amlodipine 10 mg PO QAM 06/24/15 09/15/17 Besylate] hydrALAZINE HCL [Apresoline] 100 mg PO TID 03/28/16 09/15/17 chlorproMAZINE [Thorazine] 25 mg PO BID 12/28/16 09/15/17 Cinacalcet HCl [Sensipar] 60 mg PO Q48H 01/31/17 09/15/17 Sevelamer [Renvela] 2,400 mg PO AC-TID 01/31/17 09/15/17 Carvedilol [Coreg] 25 mg PO BID 05/24/17 09/15/17 Docusate [Colace] 100 mg PO DAILY 05/24/17 09/15/17 INSULIN LISPRO (humaLOG) [humaLOG] See Protocol SQ AC-TID PRN 05/24/17 09/15/17 Ondansetron Odt [Zofran ODT] 4 mg PO DAILY PRN 05/24/17 09/15/17 Neela-Cherelle 1 tab PO DAILY 05/24/17 09/15/17 Sodium Bicarbonate Tab 650 mg PO TID 05/24/17 09/15/17 Vitamin B Complex 2 cap PO DAILY 05/24/17 09/15/17 Famotidine [Pepcid] 20 mg PO BID 08/08/17 09/15/17 Lisinopril [Prinivil] 5 mg PO DAILY 08/08/17 09/15/17 cloNIDine HCL [Catapres] 0.2 mg PO TID 08/08/17 09/15/17 oxyCODONE HCL [Roxicodone] 15 mg PO Q4H PRN 08/08/17 09/15/17 Betamethasone Dipropionate 1 applic TOPICAL BID 09/13/17 09/15/17 [Betamethasone Dipropionate 0.05%] Ketoconazole 2% Shampoo [Nizoral] 1 applic TOPICAL DAILY 09/13/17 09/15/17 Cyclobenzaprine [Flexeril] 10 mg PO TID PRN 09/15/17 09/15/17 HYDROmorphone [Dilaudid] 2 mg PO Q4-6H PRN 09/15/17 09/15/17 Previous Rx's Medication Instructions Recorded Insulin Glargine [Lantus] 12 unit SQ HS #0 12/05/16 Allergies Allergy/AdvReac Type Severity Reaction Status Date / Time codeine Allergy Rash/Hives Verified 09/15/17 17:00 metoclopramide HCl AdvReac Muscle Verified 09/15/17 17:00 [From Reglan] Spasms morphine AdvReac Increases Verified 09/15/17 17:00 Pain Review of Systems ROS Other: All systems not noted in ROS Statement are negative. Constitutional: Denies: fever Respiratory: Denies: cough Cardiovascular: Denies: chest pain Gastrointestinal: Reports: abdominal pain, nausea. Denies: vomiting, diarrhea, constipation, hematemesis, melena, hematochezia Genitourinary: Denies: urgency, dysuria Musculoskeletal: Denies: back pain Neurological: Denies: headache <Ann Douglas - Last Filed: 09/15/17 17:16> ROS Other: All systems not noted in ROS Statement are negative. <Trevin Sanchez - Last Filed: 09/15/17 20:03> ROS Statement: Those systems with pertinent positive or pertinent negative responses have been documented in the HPI. Past Medical History Past Medical History: Chest Pain / Angina, Diabetes Mellitus, Dialysis, Eye Disorder, GERD/Reflux, Hypertension, Renal Disease, Seizure Disorder, Thyroid Disorder Additional Past Medical History / Comment(s): IDDM type I/brittle, chronic abdominal pain, gastroparesis, cyclic vomiting and had gastric pacemaker inserted 05/17/17 at [facility], chronic renal failure stage IV, hemodialysis M/W/FR-4 hr, past peritoneal dialysis with peritonitis, pancreatitis, heart murmur, diabetic retinopathy bilaterally, retinal detachment with surgery, bilateral hands, legs and feet diabetic neuropathy, hypothyroid, hiatal hernia, sinusitis , bronchitis, chronic back pain, anemia, last seizure in 2015. History of Any Multi-Drug Resistant Organisms: None Reported Past Surgical History: Cholecystectomy, Heart Catheterization, Hernia Repair Additional Past Surgical History / Comment(s): 05/17/17 Gastric pacemaker inserted at [facility], bilateral retinal reattachment sx, hemodialysis catheter in Feb 2013- lt arm fistual, L inguinal hernia, 2009 cardiac cath. Past Anesthesia/Blood Transfusion Reactions: No Reported Reaction Additional Past Anesthesia/Blood Transfusion Reaction / Comment(s): Uvula edema with gallbladder surgery that occluded airway and caused respiratory arrest. Past Psychological History: Anxiety, Depression Smoking Status: Former smoker Past Alcohol Use History: None Reported Past Drug Use History: None Reported - Past Family History Father History Unknown: Yes Mother History Unknown: Yes Family Medical History: COPD Additional Family Medical History / Comment(s): Mother has never smoked. Mother' s brother had diabetes and multiple sclerosis. Brother(s) Family Medical History: Diabetes Mellitus Additional Family Medical History / Comment(s): multiple sclerosis <Ann Douglas - Last Filed: 09/15/17 17:16> General Exam Limitations: no limitations General appearance: alert, in no apparent distress, in distress Eye exam: Present: PERRL, EOMI ENT exam: Present: normal exam, mucous membranes moist Respiratory exam: Present: normal lung sounds bilaterally. Absent: respiratory distress, wheezes, rales, rhonchi, stridor Cardiovascular Exam: Present: regular rate, normal rhythm, normal heart sounds. Absent: systolic murmur, diastolic murmur, rubs, gallop, clicks GI/Abdominal exam: Present: tenderness (LLQ), guarding, normal bowel sounds, other (abdominal pacemaker). Absent: distended, rebound, rigid Neurological exam: Present: alert Psychiatric exam: Present: normal affect, normal mood Skin exam: Present: warm, dry, intact, normal color. Absent: rash <Ann Douglas - Last Filed: 09/15/17 17:16> Course <Ann Douglas - Last Filed: 09/15/17 17:16> <Trevin Sanchez - Last Filed: 09/15/17 20:03> Vital Signs 09/15/17 09/15/17 17:00 18:27 Temperature 98.2 F Pulse Rate 84 89 Respiratory 20 18 Rate Blood Pressure 200/100 219/102 O2 Sat by Pulse 95 92 L Oximetry - Reevaluation(s) Reevaluation #1: 09/15/17 20:03 PA supervision: I did personally do a [id number] evaluation patient did discuss the findings and the hospitalist was contacted. Patient will be admitted for inpatient treatment of uncontrolled diabetes and chronic abdominal pain. I do agree with the assessment and plan. (Trevin Sanchez) Medical Decision Making - Lab Data Result diagrams: 09/15/17 17:32 09/15/17 17:32 <Trevin Sanchez - Last Filed: 09/15/17 20:03> - Lab Data Lab Results 09/15/17 09/15/17 09/15/17 Range/Units 17:32 17:32 17:32 WBC 6.7 (3.8-10.6) k/uL RBC 3.16 L (4.30-5.90) m/uL Hgb 9.9 L (13.0-17.5) gm/dL Hct 30.8 L (39.0-53.0) % MCV 97.6 (80.0-100.0) fL MCH 31.5 (25.0-35.0) pg MCHC 32.2 (31.0-37.0) g/dL RDW 16.2 H (11.5-15.5) % Plt Count 117 L (150-450) k/uL Neutrophils % 78 % Lymphocytes % 9 % Monocytes % 6 % Eosinophils % 4 % Basophils % 1 % Neutrophils # 5.3 (1.3-7.7) k/uL Lymphocytes # 0.6 L (1.0-4.8) k/uL Monocytes # 0.4 (0-1.0) k/uL Eosinophils # 0.2 (0-0.7) k/uL Basophils # 0.1 (0-0.2) k/uL Anisocytosis Slight Macrocytosis Slight Sodium 138 (137-145) mmol/L Potassium 5.2 H (3.5-5.1) mmol/L Chloride 95 L (98-107) mmol/L Carbon Dioxide 23 (22-30) mmol/L Anion Gap 20 mmol/L BUN 89 H* (9-20) mg/dL Creatinine 10.10 H* (0.66-1.25) mg/dL Est GFR (CKD-EPI)AfAm 7 (>60 ml/min/1.73 sqM) Est GFR (CKD-EPI)NonAf 6 (>60 ml/min/1.73 sqM) Glucose 550 H* (74-99) mg/dL Calcium 8.3 L (8.4-10.2) mg/dL Total Bilirubin 0.8 (0.2-1.3) mg/dL AST 23 (17-59) U/L ALT 39 (21-72) U/L Alkaline Phosphatase 135 H (38-126) U/L Total Protein 7.1 (6.3-8.2) g/dL Albumin 4.3 (3.5-5.0) g/dL Acetone, Qual Negative (Negative)
[2017-09-15 17:41] LABS: Anisocytosis Slight; Basophils # (A) 0.1 k/uL (0-0.2); Basophils % (A) 1 %; Eosinophils # (A) 0.2 k/uL (0-0.7); Eosinophils % (A) 4 %; HCT 30.8 % (39.0-53.0); HGB 9.9 gm/dL (13.0-17.5); Lymphocytes # (A) 0.6 k/uL (1.0-4.8); Lymphocytes % (A) 9 %; MCH 31.5 pg (25.0-35.0); MCHC 32.2 g/dL (31.0-37.0); MCV 97.6 fL (80.0-100.0); Macrocytosis Slight; Mean Platelet Volume 8.7; Monocytes # (A) 0.4 k/uL (0-1.0); Monocytes % (A) 6 %; Neutrophils # (A) 5.3 k/uL (1.3-7.7); Neutrophils % (A) 78 %; Platelet Count 117 k/uL (150-450); RBC 3.16 m/uL (4.30-5.90); RDW 16.2 % (11.5-15.5); WBC 6.7 k/uL (3.8-10.6)
[2017-09-15 17:54] LABS: Albumin 4.3 g/dL (3.5-5.0); Calcium 8.3 mg/dL (8.4-10.2); Potassium 5.2 mmol/L (3.5-5.1); Total Bilirubin 0.8 mg/dL (0.2-1.3); Total Protein 7.1 g/dL (6.3-8.2)
[2017-09-15] MEDS ORDERED: cloNIDine HCL 0.2 MG TAB PO STA (18:38)
[2017-09-15] MEDS ORDERED: SODIUM CHLORIDE 0.9% 1,000 ML IV STA (18:46)
[2017-09-15] MEDS ORDERED: ONDANSETRON 4 MG/2 ML VIAL IVP STA (18:46)
--- NOTE | 2017-09-15 18:52 | XR ---
EXAMINATION TYPE: XR abdomen complete w decub DATE OF EXAM: 09/15/2017 COMPARISON: Abdominal radiograph 08/10/2017 HISTORY: Abdominal pain TECHNIQUE: Supine, upright, and left side down lateral decubitus views of the abdomen are obtained. FINDINGS: No pneumoperitoneum. No dilated loops of large or small bowel. Limited evaluation of the lower thorax reveals cardiomegaly. Extensive vascular calcifications are seen throughout. Spinal stimulator devic e projects left of midline. Fluid was present with the low pelvis. Osseous structures are intact. IMPRESSION: Overall no significant interval change. There remains extensive atherosclerotic calcification as well as a spinal stimulator device and postsurgical changes.
[2017-09-15] MEDS ORDERED: IBUPROFEN 400 MG TAB PO PRN (19:03)
[2017-09-15] MEDS ORDERED: ACETAMINOPHEN TAB 325 MG TAB PO PRN (19:03)
[2017-09-15] MEDS ORDERED: NALOXONE 0.4 MG/ML 1 ML VIAL IV PRN (19:03)
[2017-09-15] MEDS ORDERED: INSULIN ASPART 100 UNIT/ML 1 ML 10 ML VIAL SQ ONE (19:43)
[2017-09-15] MEDS ORDERED: LORazepam 1 MG TAB PO PRN (19:46)
[2017-09-15] MEDS ORDERED: CYCLOBENZAPRINE 10 MG TAB PO PRN (19:46)
[2017-09-15 20:36] LABS: Glucose,Whole Blood 490 mg/dL (75-99)
[2017-09-15] MEDS ORDERED: CARVEDILOL 12.5 MG TAB PO SCH (21:00)
[2017-09-15] MEDS ORDERED: CINACALCET 30 MG TAB PO SCH (21:00)
[2017-09-15] MEDS: SODIUM CHLORIDE 0.9% 1,000 ML IV SCH (22:08)
[2017-09-15] MEDS: chlorproMAZINE 25 MG TAB PO SCH (22:08)
[2017-09-15] MEDS: FAMOTIDINE 20 MG TAB PO SCH (22:08)
[2017-09-15] MEDS: HYDROmorphone 0.5 MG/0.5 ML SYRINGE IVP PRN (22:09)
[2017-09-15] MEDS: SODIUM BICARBONATE TAB 650 MG TAB PO SCH (22:09)
[2017-09-15] MEDS: cloNIDine HCL 0.2 MG TAB PO SCH (22:09)
[2017-09-15] MEDS: hydrALAZINE HCL 50 MG TAB PO SCH (22:09)
[2017-09-15 22:34] VITALS: BMI 20.3
[2017-09-15 22:56] LABS: Glucose,Whole Blood 253 mg/dL (75-99)
[2017-09-16] MEDS: ONDANSETRON 4 MG/2 ML VIAL IVP PRN ×2 (02:53→11:37)
[2017-09-16] MEDS: SODIUM CHLORIDE 0.9% 1,000 ML IV SCH ×3 (02:53→13:00)
[2017-09-16] MEDS: HYDROmorphone 0.5 MG/0.5 ML SYRINGE IVP PRN ×3 (03:31→11:37)
[2017-09-16 07:41] LABS: Glucose,Whole Blood 170 mg/dL (75-99)
[2017-09-16] MEDS: SODIUM BICARBONATE TAB 650 MG TAB PO SCH ×2 (08:34→18:46)
[2017-09-16] MEDS: CARVEDILOL 12.5 MG TAB PO SCH ×2 (08:35→18:45)
[2017-09-16] MEDS: INSULIN ASPART 100 UNIT/ML 1 ML 10 ML VIAL SQ SCH ×3 (08:35→18:44)
[2017-09-16] MEDS: SEVELAMER 800 MG TAB PO SCH ×3 (08:35→18:45)
[2017-09-16] MEDS: cloNIDine HCL 0.2 MG TAB PO SCH ×2 (08:36→18:46)
[2017-09-16] MEDS: FAMOTIDINE 20 MG TAB PO SCH (08:36)
[2017-09-16] MEDS ORDERED: amLODIPine 10 MG TAB PO SCH (09:00)
[2017-09-16] MEDS ORDERED: LISINOPRIL 5 MG TAB PO SCH (09:00)
[2017-09-16] MEDS ORDERED: DOCUSATE 100 MG CAP PO SCH (09:00)
[2017-09-16] MEDS ORDERED: FOLIC ACID-VIT B COMPLEX-VIT C 1 CAP PO SCH (09:00)
[2017-09-16] MEDS: chlorproMAZINE 25 MG TAB PO SCH (09:53)
[2017-09-16 10:12] LABS: Anisocytosis Slight; Basophils # (A) 0.1 k/uL (0-0.2); Basophils % (A) 1 %; Eosinophils # (A) 0.4 k/uL (0-0.7); Eosinophils % (A) 6 %; HCT 29.1 % (39.0-53.0); HGB 9.3 gm/dL (13.0-17.5); Lymphocytes # (A) 1.2 k/uL (1.0-4.8); Lymphocytes % (A) 17 %; MCH 30.7 pg (25.0-35.0); MCHC 31.9 g/dL (31.0-37.0); MCV 96.4 fL (80.0-100.0); Mean Platelet Volume 7.9; Monocytes # (A) 0.4 k/uL (0-1.0); Monocytes % (A) 6 %; Neutrophils # (A) 4.6 k/uL (1.3-7.7); Neutrophils % (A) 68 %; Platelet Count 122 k/uL (150-450); RBC 3.02 m/uL (4.30-5.90); RDW 16.2 % (11.5-15.5); WBC 6.8 k/uL (3.8-10.6)
[2017-09-16 10:19] LABS: Albumin 4.1 g/dL (3.5-5.0); Total Bilirubin 0.8 mg/dL (0.2-1.3); Total Protein 6.9 g/dL (6.3-8.2)
--- NOTE | 2017-09-16 10:24 | P.NPCON ---
History of Present Illness - Reason for Consult end stage renal disease - History of Present Illness Reason for consultation: End-stage renal disease History of present illness: Patient is a 42-year-old male seen in consultation for end-stage renal disease. He is maintained on hemodialysis on a Saturday schedule for left upper extremity AV fistula. Patient has long-standing history of insulin dependent diabetes mellitus. He's had multiple admissions for diabetic gastroparesis and had a gastric pacemaker placed at [facility]. Patient states he developed left lower quadrant pain near his pacemaker site and came to the hospital for further care. He denies any fever or chills. Oral intake is good. States he had his breakfast this morning. Denies vomiting or diarrhea. Denies chest pain or shortness of breath. His last hemodialysis treatment was on Saturday. Abdominal x-ray revealed no acute findings. His abdominal pain is improved. Vital signs are stable. General: The patient appeared well nourished and normally developed. HEENT: Head exam is unremarkable. Neck is without jugular venous distension. LUNGS: Lungs are clear to auscultation and percussion. Breath sounds decreased. HEART: Rate and Rhythm are regular. First and second heart sounds normal. No murmurs, rubs or gallops. ABDOMEN: Abdominal exam reveals normal bowel sounds. Non-tender and non- distended. No evidence of peritonitis. EXTREMITITES: No clubbing, cyanosis, or edema. Past Medical History Past Medical History: Chest Pain / Angina, Diabetes Mellitus, Dialysis, Eye Disorder, GERD/Reflux, Hypertension, Renal Disease, Seizure Disorder, Thyroid Disorder Additional Past Medical History / Comment(s): IDDM type I/brittle, chronic abdominal pain, gastroparesis, cyclic vomiting and had gastric pacemaker inserted 05/17/17 at [facility], chronic renal failure stage IV, hemodialysis M/W/FR-4 hr, past peritoneal dialysis with peritonitis, pancreatitis, heart murmur, diabetic retinopathy bilaterally, retinal detachment with surgery, bilateral hands, legs and feet diabetic neuropathy, hypothyroid, hiatal hernia, sinusitis , bronchitis, chronic back pain, anemia, last seizure in 2016. History of Any Multi-Drug Resistant Organisms: None Reported Past Surgical History: Cholecystectomy, Heart Catheterization, Hernia Repair Additional Past Surgical History / Comment(s): 05/17/17 Gastric pacemaker inserted at [facility], bilateral retinal reattachment sx, hemodialysis catheter in Feb 2013- lt arm fistual, L inguinal hernia, 2009 cardiac cath. Past Anesthesia/Blood Transfusion Reactions: No Reported Reaction Additional Past Anesthesia/Blood Transfusion Reaction / Comment(s): Uvula edema with gallbladder surgery that occluded airway and caused respiratory arrest. Past Psychological History: Anxiety, Depression Additional Psychological History / Comment(s): Pt has his mother living with him. He uses no assistive device. He drives. Smoking Status: Former smoker Past Alcohol Use History: None Reported Additional Past Alcohol Use History / Comment(s): STARTED SMOKING AT AGE 18 SMOKED SOCIALLY AND QUIT 1998. Past Drug Use History: None Reported Additional Drug Use History / Comment(s): PAST medical Marijuana use in high school. - Past Family History Father History Unknown: Yes Mother History Unknown: Yes Family Medical History: COPD Additional Family Medical History / Comment(s): Mother has never smoked. Mother' s brother had diabetes and multiple sclerosis. Brother(s) Family Medical History: Diabetes Mellitus Additional Family Medical History / Comment(s): multiple sclerosis Medications and Allergies Home Medications Medication Instructions Recorded Confirmed Type LORazepam [Ativan] 0.5 - 1 mg PO DAILY PRN 06/06/14 09/16/17 History amLODIPine BESYLATE [Amlodipine 10 mg PO QAM 06/24/15 09/16/17 History Besylate] hydrALAZINE HCL [Apresoline] 100 mg PO TID 03/28/16 09/16/17 History Insulin Glargine [Lantus] 12 unit SQ HS #0 12/05/16 09/16/17 Rx chlorproMAZINE [Thorazine] 25 mg PO BID 12/28/16 09/16/17 History Sevelamer [Renvela] 2,400 mg PO AC-TID 01/31/17 09/16/17 History Carvedilol [Coreg] 25 mg PO BID 05/24/17 09/16/17 History Docusate [Colace] 100 mg PO DAILY 05/24/17 09/16/17 History INSULIN LISPRO (humaLOG) [humaLOG] See Protocol SQ AC-TID PRN 05/24/17 09/16/17 History Ondansetron Odt [Zofran ODT] 4 mg PO DAILY PRN 05/24/17 09/16/17 History Neela-Cherelle 1 tab PO DAILY 05/24/17 09/16/17 History Sodium Bicarbonate Tab 650 mg PO AC-TID 05/24/17 09/16/17 History Vitamin B Complex 2 cap PO DAILY 05/24/17 09/16/17 History Famotidine [Pepcid] 20 mg PO BID 08/08/17 09/16/17 History cloNIDine HCL [Catapres] 0.2 mg PO TID 08/08/17 09/16/17 History oxyCODONE HCL [Roxicodone] 15 mg PO Q4H PRN 08/08/17 09/16/17 History Betamethasone Dipropionate 1 applic TOPICAL BID 09/13/17 09/16/17 History [Betamethasone Dipropionate 0.05%] Ketoconazole 2% Shampoo [Nizoral] 1 applic TOPICAL DAILY 09/13/17 09/16/17 History Cyclobenzaprine [Flexeril] 10 mg PO TID PRN 09/15/17 09/16/17 History HYDROmorphone [Dilaudid] 2 mg PO Q4H PRN 09/15/17 09/16/17 History Allergies Allergy/AdvReac Type Severity Reaction Status Date / Time codeine Allergy Rash/Hives Verified 09/16/17 07:18 metoclopramide HCl AdvReac Muscle Verified 09/16/17 07:18 [From Reglan] Spasms morphine AdvReac Increases Verified 09/16/17 07:18 Pain Physical Exam Vitals: Vital Signs Temp Pulse Pulse Resp BP BP Pulse Ox 09/16/17 06:31 97.0 F L 72 18 162/90 96 09/15/17 23:00 193/97 09/15/17 22:00 97.5 F L 80 16 203/103 96 09/15/17 21:31 88 18 191/86 98 09/15/17 20:38 75 26 H 202/102 89 L 09/15/17 20:05 206/100 09/15/17 18:27 89 18 219/102 92 L 09/15/17 17:00 98.2 F 84 20 200/100 95 Intake and Output 09/15/17 09/16/17 09/16/17 22:59 06:59 14:59 Intake Total 250 Balance 250 Intake: Oral 250 Other: # Voids 0 Weight 58.9 kg Results - Lab Results Most recent lab results Calcium 8.3 mg/dL (8.4-10.2) L 09/15/17 17:32 09/16/17 09:44 09/15/17 17:32 Assessment and Plan Plan: Assessment: 1. End-stage renal disease maintained on hemodialysis on a Saturday schedule via left upper extremity AV fistula. 2. Abdominal discomfort. Seems to have resolved. Abdominal x-ray revealed no acute findings. 3. Insulin-dependent diabetes mellitus. 4. Chronic kidney disease mineral bone disease maintained on Sensipar and Renvela. 5. Hypertension with chronic kidney disease. Partially related to pain. Expect further improvement after dialysis today. 6. Anemia of chronic kidney disease. Rule out iron deficiency. Plan: Hemodialysis today with goal 3 L ultra filtration. Check iron studies. Check phosphorus level. Add Aralorriep. Thank you for the consultation. I will continue to follow the patient with you during his hospital stay.
[2017-09-16] MEDS ORDERED: DARBEPOETIN ALFA 40 MCG/0.4 ML SYRINGE SQ SCH (10:30)
[2017-09-16] MEDS: hydrALAZINE HCL 50 MG TAB PO SCH ×2 (12:12→18:46)
[2017-09-16] MEDS ORDERED: diphenhydrAMINE 25 MG CAP PO PRN (12:15)
[2017-09-16 12:33] LABS: Glucose,Whole Blood 209 mg/dL (75-99)
--- NOTE | 2017-09-16 14:36 | P.HPIM ---
History of Present Illness 42-year-old male seen in consultation for end-stage renal disease. He is maintained on hemodialysis on a Saturday schedule for left upper extremity AV fistula. Patient has long-standing history of insulin dependent diabetes mellitus. He's had multiple admissions for diabetic gastroparesis and had a gastric pacemaker placed at [facility]. Patient states he developed left lower quadrant pain near his pacemaker site and came to the hospital for further care. He denies any fever or chills. Oral intake is good. States he had his breakfast this morning. Denies vomiting or diarrhea. Denies chest pain or shortness of breath. His last hemodialysis treatment was on Saturday. Abdominal x-ray revealed no acute findings. His abdominal pain is improved. Patient is feeling better today patient the pacemaker site area doesn 't appear to be infected. Patient will receive hemodialysis after which patient will be discharged patient blood sugars are elevated patient is receiving insulin and increase the doses here will increase Lantus dose to 18 units and will continue his pre-meal insulin sliding scale. Will be discharged after hemodialysis. Patient is complaining with his diabetic medications. Patient will be referred to blueprint assembler. Patient is receiving nonsteroidal anti-intermittent pruritus at home patient was instructed to not use NSAIDS. Review of Systems REVIEW OF SYSTEMS: CONSTITUTIONAL: No fever, no malaise, no fatigue. HEENT: No recent visual problems or hearing problems. Denied any sore throat. CARDIOVASCULAR: No chest pain, orthopnea, PND, no palpitations, no syncope. PULMONARY: No shortness of breath, no cough, no hemoptysis. GASTROINTESTINAL: No diarrhea, NEUROLOGICAL: No headaches, no weakness, no numbness. HEMATOLOGICAL: Denies any bleeding or petechiae. GENITOURINARY: Denies any burning micturition, frequency, or urgency. MUSCULOSKELETAL/RHEUMATOLOGICAL: Denies any joint pain, swelling, or any muscle pain. ENDOCRINE: Denies any polyuria or polydipsia. The rest of the 14-point review of systems is negative. Past Medical History Past Medical History: Chest Pain / Angina, Diabetes Mellitus, Dialysis, Eye Disorder, GERD/Reflux, Hypertension, Renal Disease, Seizure Disorder, Thyroid Disorder Additional Past Medical History / Comment(s): IDDM type I/brittle, chronic abdominal pain, gastroparesis, cyclic vomiting and had gastric pacemaker inserted 05/17/17 at [facility], chronic renal failure stage IV, hemodialysis M/W/FR-4 hr, past peritoneal dialysis with peritonitis, pancreatitis, heart murmur, diabetic retinopathy bilaterally, retinal detachment with surgery, bilateral hands, legs and feet diabetic neuropathy, hypothyroid, hiatal hernia, sinusitis , bronchitis, chronic back pain, anemia, last seizure in 2015. History of Any Multi-Drug Resistant Organisms: None Reported Past Surgical History: Cholecystectomy, Heart Catheterization, Hernia Repair Additional Past Surgical History / Comment(s): 05/17/17 Gastric pacemaker inserted at [facility], bilateral retinal reattachment sx, hemodialysis catheter in Feb 2013- lt arm fistual, L inguinal hernia, 2009 cardiac cath. Past Anesthesia/Blood Transfusion Reactions: No Reported Reaction Additional Past Anesthesia/Blood Transfusion Reaction / Comment(s): Uvula edema with gallbladder surgery that occluded airway and caused respiratory arrest. Past Psychological History: Anxiety, Depression Additional Psychological History / Comment(s): Pt has his mother living with him. He uses no assistive device. He drives. Smoking Status: Former smoker Past Alcohol Use History: None Reported Additional Past Alcohol Use History / Comment(s): STARTED SMOKING AT AGE 18 SMOKED SOCIALLY AND QUIT 1998. Past Drug Use History: None Reported Additional Drug Use History / Comment(s): PAST medical Marijuana use in high school. - Past Family History Father History Unknown: Yes Mother History Unknown: Yes Family Medical History: COPD Additional Family Medical History / Comment(s): Mother has never smoked. Mother' s brother had diabetes and multiple sclerosis. Brother(s) Family Medical History: Diabetes Mellitus Additional Family Medical History / Comment(s): multiple sclerosis Medications and Allergies Home Medications Medication Instructions Recorded Confirmed Type LORazepam [Ativan] 0.5 - 1 mg PO DAILY PRN 06/06/14 09/16/17 History amLODIPine BESYLATE [Amlodipine 10 mg PO QAM 06/24/15 09/16/17 History Besylate] hydrALAZINE HCL [Apresoline] 100 mg PO TID 03/28/16 09/16/17 History chlorproMAZINE [Thorazine] 25 mg PO BID 12/28/16 09/16/17 History Sevelamer [Renvela] 2,400 mg PO AC-TID 01/31/17 09/16/17 History Carvedilol [Coreg] 25 mg PO BID 05/24/17 09/16/17 History Docusate [Colace] 100 mg PO DAILY 05/24/17 09/16/17 History INSULIN LISPRO (humaLOG) [humaLOG] See Protocol SQ AC-TID PRN 05/24/17 09/16/17 History Ondansetron Odt [Zofran ODT] 4 mg PO DAILY PRN 05/24/17 09/16/17 History Neela-Cherelle 1 tab PO DAILY 05/24/17 09/16/17 History Sodium Bicarbonate Tab 650 mg PO AC-TID 05/24/17 09/16/17 History Vitamin B Complex 2 cap PO DAILY 05/24/17 09/16/17 History Famotidine [Pepcid] 20 mg PO BID 08/08/17 09/16/17 History cloNIDine HCL [Catapres] 0.2 mg PO TID 08/08/17 09/16/17 History oxyCODONE HCL [Roxicodone] 15 mg PO Q4H PRN 08/08/17 09/16/17 History Betamethasone Dipropionate 1 applic TOPICAL BID 09/13/17 09/16/17 History [Betamethasone Dipropionate 0.05%] Ketoconazole 2% Shampoo [Nizoral] 1 applic TOPICAL DAILY 09/13/17 09/16/17 History Cyclobenzaprine [Flexeril] 10 mg PO TID PRN 09/15/17 09/16/17 History HYDROmorphone [Dilaudid] 2 mg PO Q4H PRN 09/15/17 09/16/17 History Insulin Glargine [Lantus] 18 unit SQ HS #0 09/16/17 09/16/17 Rx Allergies Allergy/AdvReac Type Severity Reaction Status Date / Time codeine Allergy Rash/Hives Verified 09/16/17 07:18 metoclopramide HCl AdvReac Muscle Verified 09/16/17 07:18 [From Reglan] Spasms morphine AdvReac Increases Verified 09/16/17 07:18 Pain Physical Exam Vitals: Vital Signs Temp Pulse Pulse Resp BP BP Pulse Ox 09/16/17 06:31 97.0 F L 72 18 162/90 96 09/15/17 23:00 193/97 09/15/17 22:00 97.5 F L 80 16 203/103 96 09/15/17 21:31 88 18 191/86 98 09/15/17 20:38 75 26 H 202/102 89 L 09/15/17 20:05 206/100 09/15/17 18:27 89 18 219/102 92 L 09/15/17 17:00 98.2 F 84 20 200/100 95 Intake and Output 09/15/17 09/16/17 09/16/17 22:59 06:59 14:59 Intake Total 250 Balance 250 Intake: Oral 250 Other: # Voids 0 0 Weight 58.9 kg PHYSICAL EXAMINATION: GENERAL: The patient is alert and oriented x3, not in any acute distress. Well developed, well nourished. HEENT: Pupils are round and equally reacting to light. EOMI. No scleral icterus. No conjunctival pallor. Normocephalic, atraumatic. No pharyngeal erythema. No thyromegaly. CARDIOVASCULAR: S1 and S2 present. No murmurs, rubs, or gallops. PULMONARY: Chest is clear to auscultation, no wheezing or crackles. ABDOMEN: Soft, nontender, nondistended, normoactive bowel sounds. No palpable organomegaly. Patient has a gastric pacemaker in place side of which doesn't appear to be infected no abscess or cellulitis in that area.. MUSCULOSKELETAL: No joint swelling or deformity. EXTREMITIES: No cyanosis, clubbing, or pedal edema. NEUROLOGICAL: Gross neurological examination did not reveal any focal deficits. SKIN: No rashes. Results CBC & Chem 7: 09/16/17 09:44 09/16/17 09:44 Labs: Abnormal Lab Results - Last 24 Hours (Table) 09/15/17 09/15/17 09/15/17 Range/Units 17:32 17:32 20:34 RBC 3.16 L (4.30-5.90) m/uL Hgb 9.9 L (13.0-17.5) gm/dL Hct 30.8 L (39.0-53.0) % RDW 16.2 H (11.5-15.5) % Plt Count 117 L (150-450) k/uL Lymphocytes # 0.6 L (1.0-4.8) k/uL Potassium 5.2 H (3.5-5.1) mmol/L Chloride 95 L (98-107) mmol/L Carbon Dioxide (22-30) mmol/L BUN 89 H* (9-20) mg/dL Creatinine 10.10 H* (0.66-1.25) mg/dL Glucose 550 H* (74-99) mg/dL POC Glucose (mg/dL) 490 H (75-99) mg/dL Calcium 8.3 L (8.4-10.2) mg/dL Phosphorus (2.5-4.5) mg/dL Alkaline Phosphatase 135 H (38-126) U/L 09/15/17 09/16/17 09/16/17 Range/Units 22:55 07:34 09:44 RBC 3.02 L (4.30-5.90) m/uL Hgb 9.3 L (13.0-17.5) gm/dL Hct 29.1 L (39.0-53.0) % RDW 16.2 H (11.5-15.5) % Plt Count 122 L (150-450) k/uL Lymphocytes # (1.0-4.8) k/uL Potassium (3.5-5.1) mmol/L Chloride (98-107) mmol/L Carbon Dioxide (22-30) mmol/L BUN (9-20) mg/dL Creatinine (0.66-1.25) mg/dL Glucose (74-99) mg/dL POC Glucose (mg/dL) 253 H 170 H (75-99) mg/dL Calcium (8.4-10.2) mg/dL Phosphorus (2.5-4.5) mg/dL Alkaline Phosphatase (38-126) U/L 09/16/17 09/16/17 09/16/17 Range/Units 09:44 09:44 12:29 RBC (4.30-5.90) m/uL Hgb (13.0-17.5) gm/dL Hct (39.0-53.0) % RDW (11.5-15.5) % Plt Count (150-450) k/uL Lymphocytes # (1.0-4.8) k/uL Potassium (3.5-5.1) mmol/L Chloride (98-107) mmol/L Carbon Dioxide 18 L (22-30) mmol/L BUN 90 H* (9-20) mg/dL Creatinine 10.45 H* (0.66-1.25) mg/dL Glucose 212 H (74-99) mg/dL POC Glucose (mg/dL) 209 H (75-99) mg/dL Calcium 8.0 L (8.4-10.2) mg/dL Phosphorus 8.6 H* (2.5-4.5) mg/dL Alkaline Phosphatase (38-126) U/L Thrombosis Risk Factor Assmnt - Choose All That Apply Any of the Below Risk Factors Present?: No Other Risk Factors: No Other congenital or acquired thrombophilia - If yes, enter type in comment: No Thrombosis Risk Factor Assessment Level: Very Low Risk Assessment and Plan Plan: -Abdominal pain: Resolved now probably postsurgical inflammatory pain no infection at this time. Patient does have history of gastroparesis -Gastroparesis -End-stage renal disease on hemodialysis patient will continue his hematemesis today. -Mild hyperkalemia secondary to end-stage tenderness is expected to improve with hemodialysis -Metabolic bone disease -Hypertension -Anemia of chronic kidney disease --Diabetes mellitus insulin-dependent uncontrolled blood sugars, increasing the dose of Lantus at nighttime. -Gastroesophageal reflux disease -Hypothyroidism
--- NOTE | 2017-09-16 14:37 | P.DS ---
Providers Date of admission: 09/15/17 19:39 Attending physician: Cristóbal Juan Consults: 09/16/17 07:51 Consult Physician Urgent Consulting Provider: Gisella Rush Consult Reason/Comments: known. hemodialysis MWF Do you want consulting provider notified?: Yes Primary care physician: Jemima Armendariz [facility] Course: Please refer to my HPI Plan - Discharge Summary Discharge Rx Participant: Yes New Discharge Prescriptions: Continue LORazepam [Ativan] 0.5 - 1 mg PO DAILY PRN PRN Reason: Anxiety amLODIPine BESYLATE [Amlodipine Besylate] 10 mg PO QAM hydrALAZINE HCL [Apresoline] 100 mg PO TID chlorproMAZINE [Thorazine] 25 mg PO BID Sevelamer [Renvela] 2,400 mg PO AC-TID Sodium Bicarbonate Tab 650 mg PO AC-TID Neela-Cherelle 1 tab PO DAILY Docusate [Colace] 100 mg PO DAILY Carvedilol [Coreg] 25 mg PO BID Vitamin B Complex 2 cap PO DAILY Ondansetron Odt [Zofran ODT] 4 mg PO DAILY PRN PRN Reason: Nausea INSULIN LISPRO (humaLOG) [humaLOG] See Protocol SQ AC-TID PRN PRN Reason: Blood Sugar - High oxyCODONE HCL [Roxicodone] 15 mg PO Q4H PRN PRN Reason: Pain cloNIDine HCL [Catapres] 0.2 mg PO TID Famotidine [Pepcid] 20 mg PO BID Ketoconazole 2% Shampoo [Nizoral] 1 applic TOPICAL DAILY Betamethasone Dipropionate [Betamethasone Dipropionate 0.05%] 1 applic TOPICAL BID HYDROmorphone [Dilaudid] 2 mg PO Q4H PRN PRN Reason: Pain Cyclobenzaprine [Flexeril] 10 mg PO TID PRN PRN Reason: Pain Changed Insulin Glargine [Lantus] 18 unit SQ HS #0 Discharge Medication List LORazepam [Ativan] 0.5 - 1 mg PO DAILY PRN 06/06/14 [History] amLODIPine BESYLATE [Amlodipine Besylate] 10 mg PO QAM 06/24/15 [History] hydrALAZINE HCL [Apresoline] 100 mg PO TID 03/28/16 [History] chlorproMAZINE [Thorazine] 25 mg PO BID 11/10/17 [History] Sevelamer [Renvela] 2,400 mg PO AC-TID 01/31/17 [History] Carvedilol [Coreg] 25 mg PO BID 05/24/17 [History] Docusate [Colace] 100 mg PO DAILY 05/24/17 [History] INSULIN LISPRO (humaLOG) [humaLOG] See Protocol SQ AC-TID PRN 05/24/17 [History] Ondansetron Odt [Zofran ODT] 4 mg PO DAILY PRN 05/24/17 [History] Neela-Cherelle 1 tab PO DAILY 05/24/17 [History] Sodium Bicarbonate Tab 650 mg PO AC-TID 05/24/17 [History] Vitamin B Complex 2 cap PO DAILY 05/24/17 [History] Famotidine [Pepcid] 20 mg PO BID 08/08/17 [History] cloNIDine HCL [Catapres] 0.2 mg PO TID 08/08/17 [History] oxyCODONE HCL [Roxicodone] 15 mg PO Q4H PRN 08/08/17 [History] Betamethasone Dipropionate [Betamethasone Dipropionate 0.05%] 1 applic TOPICAL BID 09/13/17 [History] Ketoconazole 2% Shampoo [Nizoral] 1 applic TOPICAL DAILY 09/13/17 [History] Cyclobenzaprine [Flexeril] 10 mg PO TID PRN 09/15/17 [History] HYDROmorphone [Dilaudid] 2 mg PO Q4H PRN 09/15/17 [History] Insulin Glargine [Lantus] 18 unit SQ HS #0 09/16/17 [Rx] Follow up Appointment(s)/Referral(s): Kala Onofre MD [Primary Care Provider] - 10/07/17 2:30 pm (If needed earlier please call the office to see if there is any cancellations) Hermelindo Duval MD [REFERRING] - 1 Week (Office closed. Please call the office to sschedule an appt.) Patient Instructions/Handouts: Chronic Kidney Disease (DC) Activity/Diet/Wound Care/Special Instructions: renal diet. continue HD Sat, & Saturday. Discharge Disposition: HOME SELF-CARE
[2017-09-16 15:35] VITALS: BP 149/79; PULSE 63; RESP 16; TEMP 97.9
[2017-09-16 16:50] LABS: Iron Saturation 40.55 (15.00-50.00)
[2017-09-16 17:10] LABS: Glucose,Whole Blood 133 mg/dL (75-99)
[2017-09-16] MEDS ORDERED: INSULIN DETEMIR 100 UNIT/ML 10 ML VIAL SQ SCH ×2 (21:00)
[2017-09-16 21:23] LABS: Hemoglobin A1C 8.2 % (4.0-6.0)
[2017-09-17 01:48] LABS: Hepatitis B Surface AB- Quant 18.9 mIU/mL
[2017-09-17] MEDS ORDERED: FAMOTIDINE 20 MG TAB PO SCH (09:00)
== END 2017-09-16 19:18 | disposition home or self-care (01) | DRG 391 ==
LOC: EC 16:57 → 4MS4W 19:39
PROVIDERS: ADMIT Hospitalist; ATTEND Hospitalist
PROC: 5A1D70Z Performance of Urinary Filtration, Intermittent, Less than 6 Hours Per Day (ICD-10-PCS; principal; 2017-09-15)
DX: R10.32 Left lower quadrant pain (principal); N18.6 End stage renal disease; I12.0 Hypertensive chronic kidney disease with stage 5 chronic kidney disease or end stage renal disease; D63.1 Anemia in chronic kidney disease; E03.9 Hypothyroidism, unspecified; E11.22 Type 2 diabetes mellitus with diabetic chronic kidney disease; E11.319 Type 2 diabetes mellitus with unspecified diabetic retinopathy without macular edema; E11.43 Type 2 diabetes mellitus with diabetic autonomic (poly)neuropathy; E11.65 Type 2 diabetes mellitus with hyperglycemia; E87.5 Hyperkalemia; E88.89 Other specified metabolic disorders; F32.9 Major depressive disorder, single episode, unspecified; F41.9 Anxiety disorder, unspecified; G40.909 Epilepsy, unspecified, not intractable, without status epilepticus; K21.9 Gastro-esophageal reflux disease without esophagitis; K31.84 Gastroparesis; Z79.4 Long term (current) use of insulin; Z82.0 Family history of epilepsy and other diseases of the nervous system; Z82.5 Family history of asthma and other chronic lower respiratory diseases; Z83.3 Family history of diabetes mellitus; Z87.891 Personal history of nicotine dependence; Z99.2 Dependence on renal dialysis; Z79.891 Long term (current) use of opiate analgesic; Z79.899 Other long term (current) drug therapy; Z96.89 Presence of other specified functional implants
CPT/HCPCS: 36415; 71046; 74021; 80053; 82009; 82150; 82728; 83036; 83540; 83550; 83690; 84100; 85025; 86706; 87340; 90935; 96361; 96374; 96375; 96376; 99285

== ENCOUNTER 2017-09-20 01:29 | Emergency (ER) | payer MEDICARE, OTHER ==
[2017-09-20] MEDS ORDERED: SODIUM BICARB 8.4% 50 ML SYR (1 MEQ/ML) ONE (01:30)
[2017-09-20] MEDS ORDERED: CALCIUM CHLORIDE 100 MG/ML 10 ML SYRINGE ONE (01:30)
[2017-09-20] MEDS ORDERED: EPINEPHrine 10 ML SYRINGE (0.1 MG/ML) ONE (01:30)
[2017-09-20 01:43] LABS: Glucose,Whole Blood 221 mg/dL (75-99)
--- NOTE | 2017-09-20 01:48 | ED ---
General Adult HPI - General Stated complaint: Cardiac Arrest Time Seen by Provider: 09/20/17 01:48 - Related Data Home Medications Medication Instructions Recorded Confirmed LORazepam [Ativan] 0.5 - 1 mg PO DAILY PRN 06/06/14 09/16/17 amLODIPine BESYLATE [Amlodipine 10 mg PO QAM 06/24/15 09/16/17 Besylate] hydrALAZINE HCL [Apresoline] 100 mg PO TID 03/28/16 09/16/17 chlorproMAZINE [Thorazine] 25 mg PO BID 12/28/16 09/16/17 Sevelamer [Renvela] 2,400 mg PO AC-TID 01/31/17 09/16/17 Carvedilol [Coreg] 25 mg PO BID 05/24/17 09/16/17 Docusate [Colace] 100 mg PO DAILY 05/24/17 09/16/17 INSULIN LISPRO (humaLOG) [humaLOG] See Protocol SQ AC-TID PRN 05/24/17 09/16/17 Ondansetron Odt [Zofran ODT] 4 mg PO DAILY PRN 05/24/17 09/16/17 Neela-Cherelle 1 tab PO DAILY 05/24/17 09/16/17 Sodium Bicarbonate Tab 650 mg PO AC-TID 05/24/17 09/16/17 Vitamin B Complex 2 cap PO DAILY 05/24/17 09/16/17 Famotidine [Pepcid] 20 mg PO BID 08/08/17 09/16/17 cloNIDine HCL [Catapres] 0.2 mg PO TID 08/08/17 09/16/17 oxyCODONE HCL [Roxicodone] 15 mg PO Q4H PRN 08/08/17 09/16/17 Betamethasone Dipropionate 1 applic TOPICAL BID 09/13/17 09/16/17 [Betamethasone Dipropionate 0.05%] Ketoconazole 2% Shampoo [Nizoral] 1 applic TOPICAL DAILY 09/13/17 09/16/17 Cyclobenzaprine [Flexeril] 10 mg PO TID PRN 09/15/17 09/16/17 HYDROmorphone [Dilaudid] 2 mg PO Q4H PRN 09/15/17 09/16/17 Previous Rx's Medication Instructions Recorded Insulin Glargine [Lantus] 18 unit SQ HS #0 09/16/17 Allergies Allergy/AdvReac Type Severity Reaction Status Date / Time codeine Allergy Rash/Hives Verified 09/16/17 07:18 metoclopramide HCl AdvReac Muscle Verified 09/16/17 07:18 [From Reglan] Spasms morphine AdvReac Increases Verified 09/16/17 07:18 Pain Review of Systems ROS Statement: Those systems with pertinent positive or pertinent negative responses have been documented in the HPI. ROS Other: All systems not noted in ROS Statement are negative. Past Medical History Past Medical History: Chest Pain / Angina, Diabetes Mellitus, Dialysis, Eye Disorder, GERD/Reflux, Hypertension, Renal Disease, Seizure Disorder, Thyroid Disorder Additional Past Medical History / Comment(s): IDDM type I/brittle, chronic abdominal pain, gastroparesis, cyclic vomiting and had gastric pacemaker inserted 05/17/17 at [facility], chronic renal failure stage IV, hemodialysis M/W/FR-4 hr, past peritoneal dialysis with peritonitis, pancreatitis, heart murmur, diabetic retinopathy bilaterally, retinal detachment with surgery, bilateral hands, legs and feet diabetic neuropathy, hypothyroid, hiatal hernia, sinusitis , bronchitis, chronic back pain, anemia, last seizure in 2015. History of Any Multi-Drug Resistant Organisms: None Reported Past Surgical History: Cholecystectomy, Heart Catheterization, Hernia Repair Additional Past Surgical History / Comment(s): 05/17/17 Gastric pacemaker inserted at [facility], bilateral retinal reattachment sx, hemodialysis catheter in Feb 2013- lt arm fistual, L inguinal hernia, 2009 cardiac cath. Past Anesthesia/Blood Transfusion Reactions: No Reported Reaction Additional Past Anesthesia/Blood Transfusion Reaction / Comment(s): Uvula edema with gallbladder surgery that occluded airway and caused respiratory arrest. Past Psychological History: Anxiety, Depression Additional Psychological History / Comment(s): Pt has his mother living with him. He uses no assistive device. He drives. Smoking Status: Former smoker Past Alcohol Use History: None Reported Additional Past Alcohol Use History / Comment(s): STARTED SMOKING AT AGE 18 SMOKED SOCIALLY AND QUIT 1998. Past Drug Use History: None Reported Additional Drug Use History / Comment(s): PAST medical Marijuana use in high school. - Past Family History Father History Unknown: Yes Mother History Unknown: Yes Family Medical History: COPD Additional Family Medical History / Comment(s): Mother has never smoked. Mother' s brother had diabetes and multiple sclerosis. Brother(s) Family Medical History: Diabetes Mellitus Additional Family Medical History / Comment(s): multiple sclerosis Medical Decision Making - Lab Data Lab Results 09/20/17 Range/Units 01:32 POC Glucose (mg/dL) 221 H (75-99) mg/dL POC Glu Axle Turner ID Edilberto Lacy Disposition Referrals: Kala Onofre MD [Primary Care Provider] - 1-2 days
--- NOTE | 2017-09-20 02:15 | ED ---
CPR HPI - General Chief Complaint: Cardiac Arrest/CPR Stated Complaint: Cardiac Arrest Time Seen by Provider: 09/20/17 01:48 Source: EMS Mode of arrival: EMS Limitations: no limitations - History of Present Illness Initial Comments: Malcolm is a 42-year-old male well known to our ER for his multiple medical comorbidities who presents to the ED today via EMS with CPR in progress. Per the patient's mother Lisa tended house this as scheduled on Saturday he had no complaints, on he had a blood glucose of greater than 600 and gave himself 8 units of insulin. He then began to feel very shaky so she sat with him at the table while he ate some cereal. She states that he then began to feel unwell, he fell to the ground and was shaking , she turned him onto his side to remove any mucus or fluid from his mouth. She states that she noticed that he had no pulse and she began CPR. She grabbed her cell phone and called 911. Police and EMS arrived on scene. The patient was asystole. He was treated per ACLS protocol, and ET tube was established and he was transported to the emergency department. In route to the emergency department IV access was obtained, appendectomy was administered 7 times, bicarb was administered, blood glucose was noted to be in the 120s. Patient remained in asystole throughout transport. - Related Data Home Medications Medication Instructions Recorded Confirmed LORazepam [Ativan] 0.5 - 1 mg PO DAILY PRN 06/06/14 09/16/17 amLODIPine BESYLATE [Amlodipine 10 mg PO QAM 06/24/15 09/16/17 Besylate] hydrALAZINE HCL [Apresoline] 100 mg PO TID 03/28/16 09/16/17 chlorproMAZINE [Thorazine] 25 mg PO BID 12/28/16 09/16/17 Sevelamer [Renvela] 2,400 mg PO AC-TID 01/31/17 09/16/17 Carvedilol [Coreg] 25 mg PO BID 05/24/17 09/16/17 Docusate [Colace] 100 mg PO DAILY 05/24/17 09/16/17 INSULIN LISPRO (humaLOG) [humaLOG] See Protocol SQ AC-TID PRN 05/24/17 09/16/17 Ondansetron Odt [Zofran ODT] 4 mg PO DAILY PRN 05/24/17 09/16/17 Neela-Cherelle 1 tab PO DAILY 05/24/17 09/16/17 Sodium Bicarbonate Tab 650 mg PO AC-TID 05/24/17 09/16/17 Vitamin B Complex 2 cap PO DAILY 05/24/17 09/16/17 Famotidine [Pepcid] 20 mg PO BID 08/08/17 09/16/17 cloNIDine HCL [Catapres] 0.2 mg PO TID 08/08/17 09/16/17 oxyCODONE HCL [Roxicodone] 15 mg PO Q4H PRN 08/08/17 09/16/17 Betamethasone Dipropionate 1 applic TOPICAL BID 09/13/17 09/16/17 [Betamethasone Dipropionate 0.05%] Ketoconazole 2% Shampoo [Nizoral] 1 applic TOPICAL DAILY 09/13/17 09/16/17 Cyclobenzaprine [Flexeril] 10 mg PO TID PRN 09/15/17 09/16/17 HYDROmorphone [Dilaudid] 2 mg PO Q4H PRN 09/15/17 09/16/17 Previous Rx's Medication Instructions Recorded Insulin Glargine [Lantus] 18 unit SQ HS #0 09/16/17 Allergies Allergy/AdvReac Type Severity Reaction Status Date / Time codeine Allergy Rash/Hives Verified 09/16/17 07:18 metoclopramide HCl AdvReac Muscle Verified 09/16/17 07:18 [From Reglan] Spasms morphine AdvReac Increases Verified 09/16/17 07:18 Pain Review of Systems ROS Statement: Those systems with pertinent positive or pertinent negative responses have been documented in the HPI. ROS Other: All systems not noted in ROS Statement are negative. Limitations: ROS unobtainable due to patients medical condition Past Medical History Past Medical History: Chest Pain / Angina, Diabetes Mellitus, Dialysis, Eye Disorder, GERD/Reflux, Hypertension, Renal Disease, Seizure Disorder, Thyroid Disorder Additional Past Medical History / Comment(s): IDDM type I/brittle, chronic abdominal pain, gastroparesis, cyclic vomiting and had gastric pacemaker inserted 05/17/17 at [facility], chronic renal failure stage IV, hemodialysis M/W/FR-4 hr, past peritoneal dialysis with peritonitis, pancreatitis, heart murmur, diabetic retinopathy bilaterally, retinal detachment with surgery, bilateral hands, legs and feet diabetic neuropathy, hypothyroid, hiatal hernia, sinusitis , bronchitis, chronic back pain, anemia, last seizure in 2016. History of Any Multi-Drug Resistant Organisms: None Reported Past Surgical History: Cholecystectomy, Heart Catheterization, Hernia Repair Additional Past Surgical History / Comment(s): 05/17/17 Gastric pacemaker inserted at [facility], bilateral retinal reattachment sx, hemodialysis catheter in Feb 2013- lt arm fistual, L inguinal hernia, 2009 cardiac cath. Past Anesthesia/Blood Transfusion Reactions: No Reported Reaction Additional Past Anesthesia/Blood Transfusion Reaction / Comment(s): Uvula edema with gallbladder surgery that occluded airway and caused respiratory arrest. Past Psychological History: Anxiety, Depression Smoking Status: Former smoker Past Alcohol Use History: None Reported Past Drug Use History: None Reported - Past Family History Father History Unknown: Yes Mother History Unknown: Yes Family Medical History: COPD Additional Family Medical History / Comment(s): Mother has never smoked. Mother' s brother had diabetes and multiple sclerosis. Brother(s) Family Medical History: Diabetes Mellitus Additional Family Medical History / Comment(s): multiple sclerosis General Exam Limitations: no limitations General appearance: other (Unresponsive) Head exam: Present: atraumatic Eye exam: Present: other (Pupils fixed at 6 mm) ENT exam: Present: other (ET tube in place) Respiratory exam: Present: other (Course breath sounds bilaterally with BVM) Cardiovascular Exam: Present: other (Asystole) GI/Abdominal exam: Present: distended, other (Abdomen is firm and distended, gastric stimulator is palpable in the abdomen) Rectal exam: Present: deferred Neurological exam: Present: other (Unresponsive) Skin exam: Present: other (Mottled) Medical Decision Making - Medical Decision Making Patient arrived intubated, IV access in the right shoulder Patient treated per ACLS protocol, 7 units of epinephrine, 1 unit of bicarb prior to arrival Patient remained in asystole for 35 minutes during CPR prior to arrival, proximal and and down time prior to initiation of CPR by medical personnel was 5 -7 minutes Continue treatment with ACLS protocol there is concern for hyperkalemia as a cause of the patient's arrest, sodium bicarb and calcium given CPR was continued and 3 further as of epinephrine were given. Patient's down time at that time had been approximately 40-45 minutes. The patient's mother and uncle were brought into the room. We discussed the patient 's underlying medical conditions, current status and concern for poor neurologic outcome. Patient remained in asystole. A bedside cardiac ultrasound revealed no organized cardiac motion. Family and agreement with plan to terminate resuscitative measures as Joaquim had expressed to them in the past that he would not want to be on life support Time of at 1:43 AM Patient care was discussed with medical art therapist who state that as long as the primary care physician is willing to sign the certificate this is not in any case, patient care was discussed with Dr. Onofre who states he will sign the patient's certificate - Lab Data Lab Results 09/20/17 Range/Units 01:32 POC Glucose (mg/dL) 221 H (75-99) mg/dL POC Glu [employer] ID Edilberto Lacy Disposition Clinical Impression: Cardiac arrest Disposition: Is patient prescribed a controlled substance at d/c from ED?: No Referrals: Kala Onofre MD [Primary Care Provider] - 1-2 days Time of Disposition: 01:43 Preliminary Cause of : cardiac arrest
== END 2017-09-20 05:25 | disposition expired ==
LOC: EC 01:29
DX: I46.9 Cardiac arrest, cause unspecified (principal); I12.9 Hypertensive chronic kidney disease with stage 1 through stage 4 chronic kidney disease, or unspecified chronic kidney disease; E11.22 Type 2 diabetes mellitus with diabetic chronic kidney disease; E11.319 Type 2 diabetes mellitus with unspecified diabetic retinopathy without macular edema; N18.4 Chronic kidney disease, stage 4 (severe); Z99.2 Dependence on renal dialysis; K21.9 Gastro-esophageal reflux disease without esophagitis; E03.9 Hypothyroidism, unspecified; G40.909 Epilepsy, unspecified, not intractable, without status epilepticus; E11.40 Type 2 diabetes mellitus with diabetic neuropathy, unspecified; F32.9 Major depressive disorder, single episode, unspecified; F41.9 Anxiety disorder, unspecified; Z87.891 Personal history of nicotine dependence; Z79.4 Long term (current) use of insulin; Z79.899 Other long term (current) drug therapy; Z88.5 Allergy status to narcotic agent; Z88.8 Allergy status to other drugs, medicaments and biological substances; Z90.49 Acquired absence of other specified parts of digestive tract; Z95.818 Presence of other cardiac implants and grafts
CPT/HCPCS: 36415; 92950; 99285